=== PATIENT | female | born 1940 | race Caucasian/White ===

== ENCOUNTER → 2018-09-30 13:19 | Outpatient (CLI) | payer MEDICARE, OTHER, SELFPAY ==
--- NOTE | 2018-09-30 13:30 | SP.MBSS_ITS ---
PRIMARY / SECONDARY DIAGNOSIS: dysphagia (R13.10) REFERRING PHYSICIAN: Dr. Dane Watkins MD CURRENT DIET: regular textures, thin liquids DENTITION: upper / lower dentures; recently refitted MENTAL STATUS: WNL RESPIRATORY STATUS: O2 via room air PREVIOUS MODIFIED BARIUM SWALLOW STUDY: none REASON FOR REFERRAL: Patient is a 78 year old female referred for a modified barium swallow (MBS) study to objectively assess the Patients oropharyngeal swallow function under fluoroscopy secondary to persistent dysphagia with concerns for aspiration following workup via both gold prospector and following clinical evaluation of the swallow function via outpatient speech-language pathologist. The Patient reports persistent coughing and throat clearing at minimum once per meal, and reports ?choking? during intake less frequently; it is unclear as to what the distinction is between the two, as she has not required the Heimlich maneuver or appear to be asphyxiating upon her description. The Patient reports that her symptoms have fluctuated over the last few months, though no recent pneumonia, bronchitis, or unexplained asthma; no chronic obstructive pulmonary disease ?flair ups?. Both the Patient and the Patients daughter report no workup via contract preparer to date regarding the diagnosis of chronic obstructive pulmonary diseases; report rather recent placement on albuterol, though continued shortness of breath occurring after ambulation of ~ 50 feet. The Patient is able to ambulate with minimal assistance, required use of a wheelchair upon arrival to fluoroscopy suit. Both report a recent significant weight loss (~300 to 226) over the last 2-3 years, though this was purposeful though diet. MEDICAL HISTORY: Chronic obstructive pulmonary disease, gastroesophageal reflux disease, myocardial infarction, hypertension, type II diabetes mellitus, non-specified hearing loss, sleep apnea, former smoker STUDY FINDINGS: Patient participated in a Modified Barium Swallow (MBS) study on 09/30/2018. Dr. Peters was the radiologist present for this evaluation. This study was recorded in the lateral view and images were sent to PACs for storage. The following consistencies were presented to this patient for analysis of oropharyngeal swallow function: thin liquids, pudding, and a regular textured, Joelle Doone cookie. Results of the MBS are as follows: PENETRATION / ASPIRATION SCALE (TORRES): 1 = does not enter airway 2 = enters airway/above vocal folds/ejected 3 = enters airway/above vocal folds/not ejected 4 = enters airway/contacts vocal folds/ejected 5 = enters airway/contacts vocal folds/not ejected 6 = enters airway/below vocal folds/ejected 7 = enters airway/below vocal folds/not ejected despite effort 8 = enters airway/below vocal folds/no effort PENETRATION / ASPIRATION SCALE (SCORE): Thin liquid - 5 mL tsp.: 1 Thin liquids via cup (sequential swallows): 2 Thin liquids via cup (sequential swallows): 1 Thin liquids via cup (single sip): 1 Thin liquids via cup (sequential swallows): 1 Thin liquids via straw (sequential swallows): 2 Pudding via spoon: 1 Regular textured cookie: 1 Thin liquids via straw (single sip): 1 Thin liquids via straw (single sip): 1 Thin liquids via straw (single sip): 1 * image quality complicated by body habitus despite positional adjustments IMPRESSION: DIAGNOSIS: Mild pharyngeal dysphagia (R13.13); Dysphagia Severity Ratings Scale (DSRS): 2 ORAL PHASE CHARACTERIZED BY: LABIAL SEAL: no labial escape TONGUE CONTROL DURING BOLUS MANIPULATION: escape to lateral buccal cavity/floor of mouth BOLUS PREPARATION / MASTICATION: timely and efficient chewing and mashing BOLUS TRANSPORT / LINGUAL MOTION: brisk tongue motion ORAL RESIDUE: residue collection on oral structures (posterior lingual surface with solids) PHARYNGEAL PHASE CHARACTERIZED BY: INITIATION OF PHARYNGEAL SWALLOW: bolus head at posterior laryngeal surface of epiglottis at first hyoid excursion SOFT PALATE ELEVATION: no bolus between soft palate and pharyngeal wall LARYNGEAL ELEVATION: partial superior movement of thyroid cartilage/partial approximation of arytenoids cartilage to epiglottic petiole ANTERIOR HYOID EXCURSION: partial anterior movement EPIGLOTTIC MOVEMENT: complete epiglottic inversion LARYNGEAL VESTIBULE CLOSURE AT HEIGHT OF SWALLOW: complete laryngeal vestibule closure with no air/contrast in laryngeal vestibule PHARYNGEAL STRIPPING WAVE: pharyngeal stripping wave present / complete PHARYNGOESOPHAGEAL SEGMENT OPENING: complete distension and complete duration with no obstruction of flow TONGUE BASE RETRACTION: trace column of contrast between tongue base and posterior pharyngeal wall PHARYNGEAL RESIDUE: trace residue within or on pharyngeal structures ESOPHAGEAL PHASE CHARACTERIZED BY: ESOPHAGEAL BOLUS CLEARANCE IN THE UPRIGHT POSITION: could not view DIET TEXTURE RECOMMENDATIONS: Will recommend a regular textured, thin liquid diet. COMPENSATORY STRATEGIES RECOMMENDED: Reduced bolus volume, reduced rate of intake, seated upright at 90 degrees during PO intake, remain upright for 30-60 minutes post meal (GERD precaution) INTERPRETATION OF RESULTS: Patient presents with mild pharyngeal dysphagia (R13.13) with transient penetration of thin liquids during sequential ingestion, likely attributed to the diagnosis of chronic obstructive pulmonary disease and secondary presbyphagia. Pharyngeal phase marked by mild impairments in pharyngeal synchrony / bolus location upon swallow onset particularly during ingestion of larger volumes of thin liquids (habitual, no prompts given for sequential trials); and reduced closure of the airway during deglutition attributed to reduced hyolaryngeal excursion; though with sufficient laryngeal vestibule pressure generated to expel all penetrated materials. All deficits ameliorated with bolus volume / rate adjustments. All images complicated by the Patients body habitus, with the Patient unable to completely lower her shoulders from view, at times impeding the views of the hypopharyngeal arena and at / below the vocal folds. Would consider completion of a fiberoptic endoscopic evaluation of swallowing (FEES) if additional objective assessment data is desired / required. RECOMMENDATIONS: The Patient would benefit from continued skilled speech-language intervention targeting continued diet texture management; training and implementation of recommended compensatory strategies; Patient and caregiver education regarding dysphagia associated with chronic obstructive pulmonary disease. Discussed higher likelihood for deterioration of the swallow function during COPD exacerbation events, or in Patients with higher GOLDs classifications. Discussed higher likelihood for COPD related deficits as meals progress, with gradual reduction in oxygenation sufficiency leading to increased oxygen demands and eventual disruptions in the natural swallow / breathing pattern (expiration ? swallow - expiration); may consider monitoring during a meal during treatment (if feasible) or through trusted family members following family training (the Patients daughter is a registered nurse, with excellent insight demonstrated during the assessment; would be an invaluable informant) The Patient and the Patients daughter both report no workup via contract preparer to date, would likely benefit from further workup and treatment, with both expressing desire for referral. ADDITIONAL COMMENTS/RECOMMENDATIONS: Results and recommendations were discussed with the Patient immediately following MBS completion, with the Patient verbalizing understanding and agreement with all recommendations and education provided. IMAGE COUNT: [id number] G-CODES: SWALLOWING G8996 Current Status: CJ SWALLOWING G8997 Goal Status: CI SWALLOWING G8998 Discharge Status: IGOR Marquez M.A., [facility] Speech-Language Pathology Department [email or web address]
--- NOTE | 2018-09-30 13:30 | RAD_ITS ---
STUDY: SWALLOWING STUDY REASON FOR EXAM: Female, 78 years old. Dysphasia. TECHNIQUE: The examination was performed with Speech Pathology in attendance. Under fluoroscopic observation, the patient ingested thin barium, thick barium, barium pudding, and barium coated cracker. FLUOROSCOPY TIME: 1:53 minutes/seconds. 1766 spot images were obtained. RADIOLOGIST INVOLVEMENT: Radiologist was present and providing direct supervision. COMPARISON: None. FINDINGS: The following was observed during swallowing of the various mixtures of barium: Thin Barium: There was no evidence of aspiration or laryngeal penetration. Barium Pudding: There was no evidence of aspiration or laryngeal penetration. Barium Coated Cracker: There was no evidence of aspiration or laryngeal penetration. RAD/Swallowing Function w/Video IMPRESSION: Normal tailored barium swallow study. No evidence of increased risk for aspiration. The swallow study findings were discussed with the patient by the speech pathologist at the conclusion of the examination. Please see speech pathology report for more information and recommendations. Electronically Signed: Joe Peters MD at 15:24 EST Tel [phone], Service support ,
== END ==
PROVIDERS: Family Provider Family Medicine; PCP Family Medicine; Referring Provider Otolaryngology; Visit Provider Otolaryngology
DX: R13.12 Dysphagia, oropharyngeal phase (principal)
CPT/HCPCS: 74230; 92611; G8996; G8997; G8998

== ENCOUNTER 2018-10-14 11:30 | Outpatient (RCR) | payer MEDICARE, OTHER, SELFPAY ==
--- NOTE | 2018-09-21 16:34 | HP.SP.AD_ITS ---
History - History Date of Eval: 09/21/18 Date of Onset of Diagnosis: Pt reported 5 years. Previous speech therapy: No Other Relevant Medical History/Diagnoses/Surgery: COPD, Diabetes, Hearing loss, Acid reflux, sleep apnea, hypertension, heart attack, heart surgery. Smoking Status: Former smoker Hx Smoking: Yes - Pain Is pain an issue with your current prescribed condition?: No - Personal Education History: 12th grade Occupation: Retired Right Hearing Abillity: Hard of Hearing Left Hearing Abillity: Hard of Hearing Visual Assistive Devices: None Patients Living Arrangements: With Significant Other Subjective Oral Motor - Subjective Patient Reports: Drooling - Comments Comments: Patient has plates currently and will get permanent ones fitted tomorrow. Objective Oral Motor - Oral Status Dentition: Upper Dentures, Lower Dentures Additional: will get set tomorrow. - Labial Impairment: WNL Observation at Rest: WNL Closure: WNL Pucker: WNL Retraction: WNL Alternating Pucker/Retraction: WNL Involuntary Movement noted: No - Lingual Impairment: WNL Protrusion: WNL Retraction: WNL Lateralization: WNL Involuntary Movement: No - Jaw Impairment: WNL - Respiratory Status Respiratory Status: Room Air Subjective Dysphagia - Symptoms Reported Symptoms/Problems with: Coughing, Choking, Difficulty Swallowing Solids, Diffic ulty Swallowing Liquids - Current Diet Solids Current Diet: Soft Other: Patient reports due to lack of permanent teeth - Current Diet Liquids Current Liquids: Thin Objective Dysphagia - Administered by Administered by: Self - Thin Liquids Administred via: Cup Laryngeal Elevation: Impaired Oral Holding: No Gagging: No Patient Report: No complaints Comments: Noted minimal laryngeal elevation. - Regular Impaired Mastication: Slow but may be due loose plates. Laryngeal Elevation: Impaired Oral Holding: No Gagging: No Patient Report: Patient reported no feeling of food stuck. - Results Swallowing Within Normal Limits: No - Pending MBS Swallowing Diagnosis: Oropharyngeal Phase Dysphagia Additional: Pending MBS. Plan - Plan Plan: Cathy is demonstrating signs of dysphagia. Participation in MBS is recommended and Daughter will schedule it. - Recommendations MBS: Yes - Prognosis Prognosis: Good - Goal #1-5 Goal #1: Cathy will participate in MBS. Education - Patient Instruction Patient Education: Diagnosis, Treatment Plan Person Taught: Patient, Family Teaching Method: Discussion Response to teaching: Verbalize understanding
--- NOTE | 2018-10-14 12:20 | HP.SP.DC_ITS ---
ST Discharge Summary - Discharged: Discharge: Cathy Matias is discharged from [facility] as of September. She had her initial evaluation which resulted in recommendation of MBSS. This was completed on 09/30/18 with recommendation for regular foods/thin liquids with use of strategies. One session was completed after MBSS to educate patient on strategies and implications of COPD with swallowing deficits. Patient verbalized an understanding of all strategies and education. A copy of this discharge will be sent to her referring physician.
== END 2018-10-14 19:00 | disposition home or self-care (01) ==
LOC: SP 11:30
PROVIDERS: Family Provider Family Medicine; PCP Family Medicine; Referring Provider Otolaryngology; Visit Provider Otolaryngology
DX: R13.12 Dysphagia, oropharyngeal phase (principal)
CPT/HCPCS: 92610; G8996; G8997

== ENCOUNTER 2019-06-04 20:31 | Inpatient (IN) | payer MEDICARE, OTHER, SELFPAY ==
[2019-06-04] VITALS (9 sets, daily range): BP systolic 137–187; BP diastolic 62–83; PULSE 113–118; RESP 23–32; TEMP 37.8–38.9; O2SAT 94–98; BMI 43.7
--- NOTE | 2019-06-04 20:57 | EKG12_ITS ---
Test Reason : SOB Blood Pressure : / mmHG Vent. Rate : 115 BPM Atrial Rate : 115 BPM P-R Int : 128 ms QRS Dur : 172 ms QT Int : 368 ms P-R-T Axes : 000 -69 036 degrees QTc Int : 509 ms Sinus tachycardia Left axis deviation Right bundle branch block Possible Lateral infarct , age undetermined Abnormal ECG Confirmed by TOMI JULIAN, COURTNEY ([id number]), purchasing expeditor STUART WASHINGTON ([id number]) on 06/07/2019 1:45:59 PM Referred By: Confirmed By:COURTNEY KRISHNA MD
--- NOTE | 2019-06-04 21:25 | RAD_ITS ---
STUDY: X-RAY CHEST REASON FOR EXAM: Female, 79 years old. SOB TECHNIQUE: Single frontal view of the chest. COMPARISON: Median sternotomy wires. FINDINGS: Chronic interstitial lung changes without superimposed acute alveolar disease. There is no demonstrated pleural abnormality. Large cardiac silhouette. Normal mediastinum and winifred. Normal visualized pulmonary arteries. Normal visualized aortic arch and descending thoracic aorta. Normal visualized thoracic spine. Remote left rib trauma. There is no demonstrated abnormality of the visualized soft tissue structures of the upper abdomen. RAD/Chest 1 View (Portable) IMPRESSION: Chronic interstitial lung changes without superimposed acute alveolar disease. Electronically Signed: Herb Guy MD at 21:39 EDT Tel , Service support ,
[2019-06-04 21:30] LABS: Absolute Lymphocyte Count 0.63 X10^3/uL (0.83-4.51); Absolute Neutrophil Count 15.8 X10^3/uL (2.0-7.7); Basophil# 0.12 X10^3/uL; Basophil% 0.7 % (0-1); Eosinophil# 0.16 X10^3/uL; Eosinophils% 0.9 % (0-5); Hematocrit 42.8 % (37-47); Hemoglobin 13.8 g/dL (12.0-15.0); Lymphocyte # 0.63 X10^3/ul (4.0); Lymphocyte % 3.6 % (19-41); Mean Corp Hgb Conc 32.2 g/dL (32-36); Mean Corpuscular Hgb 29.5 pg (27.0-32.0); Mean Corpuscular Volume 91.5 fL (81-99); Mean Platelet Vol. 10.6 fl (6.2-12.0); Monocyte# 0.44 X10^3/uL; Monocyte% 2.5 % (0-10); NRBC Flagged by Analyzer 0 % (0-5); Neutrophil # 15.83 X10^3/uL (2.7-7.7); Neutrophil % 91.7 % (47-70); Platelet Count 226 K/mm3 (150-450); RBC Distribution Width CV 14.5 % (11.6-14.6); RBC Distribution Width SD 48.3 fl (35.1-43.9); Red Blood Count 4.68 M/mm3 (4.2-5.4); White Blood Count 17.3 K/mm3 (4.4-11.0)
[2019-06-04 21:49] LABS: Anion Gap 7 (5-15); BUN 27 mg/dL (7-18); BUN/Creat Ratio 20.6 RATIO (10-20); Calcium,Total 9.1 mg/dL (8.5-10.1); Chloride 95 mmol/L (98-107); Creatinine, Serum 1.31 mg/dL (0.55-1.02); EST Glomerular Filtration Rate 42 mL/min (>60); Est Glom Filt Rate - Afr Amer 51 mL/min (>60); Estimated Creatinine Clearance 29.28 ml/min; Glucose 133 mg/dL (74-106); Potassium 3.3 mmol/L (3.5-5.1); Sodium Level 133 mmol/L (136-145)
[2019-06-04 21:54] LABS: D-Dimer Quantitative (DVT/PE) 0.98 FEU/ug/m (0.27-0.49)
--- NOTE | 2019-06-04 22:54 | CT_ITS ---
STUDY: CTA CHEST REASON FOR EXAM: Female, 79 years old. Dyspnea, elevated d-dimer RADIATION DOSAGE (If Supplied By Facility): CTDIvol = ( 19.79 ) mGy, DLP = ( 508.98 ) mGycm TECHNIQUE: The examination was performed with the intravenous administration of 100ML IV Isovue 370. Post-processing of the angiographic images was performed, with multiplanar reformation and 3D reconstruction. Individualized dose optimization techniques were used for this CT. COMPARISON: June 04, 2019 chest x-ray FINDINGS: Normal enhancement of the main pulmonary artery and right and left pulmonary arteries. Normal enhancement of the bilateral peripheral pulmonary arteries. There is no demonstrated pulmonary embolism. There is a right-sided aortic arch. There is a left side subclavian crosses behind the esophagus. There is a separate takeoff for the right-sided carotid and the right side subclavian. The takeoff of the left vertebral appears to extend from the left subclavian. The left subclavian actually comes off of the anterior aspect of the arch of the right carotid. There is no demonstrated aortic dissection. There are coronary calcifications. There is moderate cardiomegaly. Sternotomy wires are seen midline. Normal mediastinum. Normal hilar regions. Normal visualized trachea and bronchi. There areas of interstitial thickening and groundglass opacity. Normal pulmonary parenchyma. Normal pleura. Normal chest wall structures. There are degenerative changes of thoracic spine. The gallbladder fossa is to the right of the liver are normal variant. The gallbladder is there is hepatic steatosis. There is posterior osteophytosis at the level of T12-L1 with mild central stenosis. 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 Findings are most consistent with mild pulmonary interstitial edema. No visualized pulmonary embolism. Moderate cardiomegaly. Status post sternotomy. Mild cardiomegaly coronary artery disease. Electronically Signed: Veronica Mantilla MD at 0:16 EDT Tel , Service support ,
[2019-06-04] MEDS: 0.9% Normal Saline 1,000 ML 999 ML IV (23:24)
[2019-06-04] MEDS: Ondansetron 4 MG/2 ML Vial IV (23:25)
--- NOTE | 2019-06-04 23:56 | ED.DCSUM_ITS ---
- ER Visit Summary Date of Service: 06/04/19 Chief Complaint: Shortness of breath, neck pain, and sore throat History of Present Illness: The patient is a 79 F who presents with shortness of breath, neck pain, and sore throat that began suddenly today. Patient states she just felt sick all of a sudden. Patient states she feels like she cannot catch her breath. Patient states she has some pain in her back and neck as well. Patient states she is coughing up some yellow and white sputum. Patient states she felt like she was running a fever at home. Patient admits to some nausea but denies any vomiting. Patient denies any chest pain. Family states patient had a recent urinary tract infection and was treated with 3 days of IM Rocephin at home. Family states that the urine culture grew out E. coli that was sensitive to Rocephin. Physical Examination: Vital signs showed an elevated blood pressure of 187/83. Patient has a temperature of 102.1. Patient is tachycardic and tachypneic with a heart rate of 113 oh respiratory rate of 29. Patient is 96% on 6 L nasal arlene jennifer. Oral mucosa is pink and moist. Neck is supple. Trachea is midline. There is no JVD noted. Heart was regular and tachycardic. Lungs are clear and equal bilaterally but diminished. Abdomen is soft. Bowel sounds are normal. There is no tenderness. Extremities are intact. There is no lower extremity edema or calf tenderness. Cranial nerves II through XII are intact. There are no focal motor or sensory deficits noted. Test Results: PA and lateral chest x-ray was obtained. There is no acute cardiopulmonary process. EKG showed a sinus tachycardia with a rate of 115. There is a right bundle branch block pattern noted. There are no acute ST or T wave changes. CBC shows leukocytosis of 17.3. Basic metabolic profile showed creatinine of 1.31 and BUN of 27. There are no prior labs for comparison. Troponin was normal at less than 0.015. BNP was 277. D-dimer was elevated at 0.98. CTA of the chest was obtained. Urinalysis showed leukocyte esterase of 500 with positive nitrates. There were 25-50 white blood cells and 2+ bacteria. Emergency Department Course and Treatment: Patient was given a dose of Zofran here. Patient was given IV fluids. Patient was started on Rocephin. Patient was given a dose of morphine for her headache and neck pain. Patient was feeling better on reevaluation. Case was discussed with the hospitalist. He will admit the patient to his service. Disposition: Admit to hospital Impression: 1. Sepsis 2. Urinary tract infection This note was generated with [employer] dictation software. It may contain incorrect words, spelling, and punctuation that were not noted in review of the chart prior to signing ED Disposition - Plan for ED Patient: Disposition: Acute Care Hospital [facility] Diagnosis: Sepsis, Urinary tract infection Referrals: Rommel Arango MD [Primary Care Provider] -
[2019-06-05] VITALS (18 sets, daily range): BP systolic 100–123; BP diastolic 50–68; PULSE 70–108; RESP 16–28; TEMP 36.6–37.7; O2SAT 91–96; BMI 40.7; BMI 40.8
[2019-06-05 00:35] LABS: Lactic Acid 1.9 mmol/L (0.4-2.0)
[2019-06-05] MEDS: Ceftriaxone 1 GM/50 ML BAG IV ×2 (01:10→03:32)
[2019-06-05 01:16] LABS: Mucous, Urine 0 SEEN /hpf (<or=2+)
[2019-06-05 01:17] LABS: Color, Urine Yellow (Yellow); Glucose, Dipstick Normal (Normal); Ketone-Dipstick Negative (Negative); Leukocyte Esterase-Dipstick 500 /ul (Negative); Nitrite-Dipstick Positive (Negative); Occult Blood-Urine 25 /ul (Negative); Protein-Dipstick 15 mg/dl (Negative); Specific Gravity, Urine 1.005 (1.002-1.030); Urine Bilirubin Dipstick Negative (Negative); Urine Clarity Cloudy (Clear); Urine Urobilinogen Normal (Normal)
[2019-06-05 01:26] LABS: Bacteria 2+ /hpf (None Seen); Red Blood Cells-Urine 0-5 SEEN /hpf (0-5); Squamous Epithelial Cells - UA 0-5 SEEN /hpf (5-10); White Blood Cells 25-50 SEEN /hpf (0-5)
--- NOTE | 2019-06-05 01:31 | PCM.HP.STD ---
Problem List (1) Sepsis Status: Acute (2) Urinary tract infection Status: Acute (3) Morbid obesity Status: Chronic (4) Chronic respiratory failure Status: Chronic (5) Essential hypertension Status: Chronic (6) Type II diabetes mellitus Status: Chronic (7) CAD (coronary artery disease) Status: Chronic History of Present Illness Date of Admission: 06/05/19 Chief Complaint: chills The patient is a 79 year old F significant history of CKD stage III; morbid obesity; hypertension; type 2 diabetes; CAD status post CABG and coronary stent who presented to emergency department with 1 day history of chills. Associated with symptoms is malaise and lower abdominal pain with urination. Reportedly, patient completed treatment for urinary tract infection a week before her presentation. She got treated with Rocephin IM for E. coli sensitive to Rocephin. On this presentation at the emergency department her temperature was 102.1; heart rate was 113; and respiratory rate was 29. Lactic acid was unremarkable. Her white count was 17.3. Patient was diagnosed with sepsis secondary to UTI. Urine culture and blood culture were taken and patient was started on broad spectrum antibiotics. Patient complains of chronic sore throat; chronic neck pain and chronic lower back pain. Past Medical History Past Medical History (Chronic Problems): Chronic Problems Morbid obesity (Chronic) Chronic respiratory failure (Chronic) Essential hypertension (Chronic) Type II diabetes mellitus (Chronic) CAD (coronary artery disease) (Chronic) Allergies No Known Allergies Allergy (Verified 06/04/19 20:36) Home Medications: Ambulatory Orders Medication Instructions Recorded Albuterol Aerosols [Ventolin 2.5 mg INHALATION Q4HWA.RT PRN 06/05/19 Aerosols] Allopurinol 100 mg PO DAILY 06/05/19 Aspirin [Aspirin, Baby] 81 mg PO DAILY@0800 06/05/19 Colchicine 0.6 mg PO PRN PRN 06/05/19 Fluoxetine HCl [Prozac] 40 mg PO DAILY 06/05/19 Folic Acid 1 mg PO DAILY 06/05/19 Furosemide [Lasix] 40 mg PO DAILY 06/05/19 Isosorbide Mononitrate [Imdur] 60 mg PO BID 06/05/19 Levothyroxine [Synthroid] 75 mcg PO DAILY 06/05/19 Loratadine 10 mg PO DAILY 06/05/19 Meclizine HCl [Antivert] 12.5 mg PO DAILY PRN PRN 06/05/19 Metolazone [Zaroxolyn] 5 mg PO DAILY 06/05/19 Metoprolol Succinate [Toprol Xl] 25 mg PO DAILY 06/05/19 Nitroglycerin (INPATIENT USE) 0.4 mg SUBLINGUAL Q5M PRN 06/05/19 [Nitrostat] Omeprazole 40 mg PO DAILY 06/05/19 Potassium Chloride 20 meq PO BID 06/05/19 Simvastatin 20 mg PO DAILY 06/05/19 Spironolactone 25 mg PO DAILY 06/05/19 Surgical History: colectomy - With colostomy and colostomy reversal, coronary bypass surgery, - - Coronary stents Lives: Alone Smoking Status: Never smoker Alcohol: None - *Family History Maternal History Items: - - Her mother at 96 following complications of surgery from broken hip. Paternal History Items: - - Patient do not know her paternal medical history. Review of Systems Constitutional: Reports: Anorexia, Chills, Malaise, Fatigue. Denies: Weight Change HEENT: Reports: Sore Throat - Chronic. Denies: Head Aches, Sinus Congestion, Sinus Drainage Cardiovascular: Denies: Chest Pain, Palpitations Respiratory: Reports: Shortness of Breath. Denies: Cough Gastrointestinal: Reports: Abdominal Pain - With urination. Denies: Nausea, Vomiting Genitourinary: Reports: Dysuria, Urgency - Chronic Musculoskeletal: Denies: Joint Pain, Joint Tenderness Skin: Denies: Rash, Wounds Neurological: Denies: Numbness, Tingling, Focal weakness Psychiatric: Denies: Anxiety, Depression, Homicidal Ideations, Suicidal Ideations Hematologic/ Lymphatic: Denies: Easy Bruising, Easy Bleeding VTE Information - Inpt Only VTE Present on Admission: No VTE Mechan Device Prophylaxis: None VTE Pharm Prophylaxis ordered?: Yes Patient Problems: Active and Suspected Problems Sepsis (Acute) Urinary tract infection (Acute) - Physical Exam General: Alert, Oriented x3, Cooperative HEENT: Atraumatic, PERRLA, EOMI, Normocephalic Neck: Supple, Trachea Midline Lungs: Short of Breath, Tachypneic, Wheezes Cardiovascular: Normal S1, Normal S2, No murmurs, Tachycardic Abdomen: Bowel Sounds Present, Soft, Non Tender Extremities: No edema, Capillary Refill Less than 3 Seconds Skin: No rashes, No breakdown Musculoskeletal: No Tenderness to Palpation of Joints or Extremities Neurological: Cranial nerves II-XII grossly intact Psych/Mental Status: Normal Affect, Appropriate Vital Signs Temp Pulse Resp BP Pulse Ox 100 F H 108 H 28 H 122/66 H 91 06/05/19 01:11 06/05/19 01:11 06/05/19 01:11 06/05/19 01:11 06/05/19 01:11 Oxygen Flow Rate (L/min) 2 Oxygen Delivery Method Nasal Cannula Weight: 112 kg Body Mass Index (BMI) 43.7 Laboratory Tests Past 24 Hrs 06/04/19 06/04/19 06/04/19 21:15 21:15 21:15 WBC 17.3 H RBC 4.68 Hgb 13.8 Hct 42.8 MCV 91.5 MCH 29.5 MCHC 32.2 RDW Std Deviation 48.3 H RDW Coeff of Oscar 14.5 Plt Count 226 MPV 10.6 Immature Gran % (Auto) 0.600 Neut % (Auto) 91.7 H Lymph % (Auto) 3.6 L Arthur % (Auto) 2.5 Eos % (Auto) 0.9 Baso % (Auto) 0.7 Absolute Neuts (auto) 15.8 H Absolute Lymphs (auto) 0.63 L Nucleated RBC % 0 D-Dimer Quant (PE/DVT) 0.98 H* Sodium 133 L Potassium 3.3 L Chloride 95 L Carbon Dioxide 31.0 Anion Gap 7 BUN 27 H Creatinine 1.31 H Estim Creat Clear Calc 29.28 Est GFR (MDRD) Af Amer 51 L Est GFR (MDRD) Non-Af 42 L BUN/Creatinine Ratio 20.6 H Glucose 133 H Lactic Acid Calcium 9.1 Troponin I < 0.015 B-Natriuretic Peptide Urine Color Urine Clarity Urine pH Ur Specific [place] Urine Protein Urine Glucose (UA) Urine Ketones Urine Occult Blood Urine Nitrite Urine Bilirubin Urine Urobilinogen Ur Leukocyte Esterase Urine RBC Urine WBC Ur Squamous Epith Cells Urine Bacteria Urine Mucus 06/04/19 06/04/19 06/05/19 21:15 21:15 00:55 WBC RBC Hgb Hct MCV MCH MCHC RDW Std Deviation RDW Coeff of Oscar Plt Count MPV Immature Gran % (Auto) Neut % (Auto) Lymph % (Auto) Arthur % (Auto) Eos % (Auto) Baso % (Auto) Absolute Neuts (auto) Absolute Lymphs (auto) Nucleated RBC % D-Dimer Quant (PE/DVT) Sodium Potassium Chloride Carbon Dioxide Anion Gap BUN Creatinine Estim Creat Clear Calc Est GFR (MDRD) Af Amer Est GFR (MDRD) Non-Af BUN/Creatinine Ratio Glucose Lactic Acid 1.9 Calcium Troponin I B-Natriuretic Peptide 277.0 H Urine Color Yellow Urine Clarity Cloudy Urine pH 7.0 Ur Specific [place] 1.005 Urine Protein 15 H Urine Glucose (UA) Normal Urine Ketones Negative Urine Occult Blood 25 H Urine Nitrite Positive H Urine Bilirubin Negative Urine Urobilinogen Normal Ur Leukocyte Esterase 500 H Urine RBC 0-5 SEEN Urine WBC 25-50 SEEN Ur Squamous Epith Cells 0-5 SEEN Urine Bacteria 2+ Urine Mucus 0 SEEN Assessment/Plan All Active Problems Sepsis (Acute) Urinary tract infection (Acute) The patient is a 79 year old F significant history of CKD stage III; morbid obesity; hypertension; type 2 diabetes; CAD status post CABG and coronary stent with chills; malaise; dysuria; tachycardia; tachypnea; leukocytosis and abnormal urinalysis in the setting of completing treatment a week ago for E-coli UTI that was sensitive to Rocephin. Sepsis secondary to UTI Patient meets sirs criteria with fever 102.1; tachycardia with rate 113; tachypnea with rate 29; and leukocytosis of 17.3. Lactic acid is unremarkable. Emergency department labs showed abnormal urinalysis. Urine culture is pending. Blood culture is pending. Follow results of urine culture blood culture. EKG showed sinus tach with right bundle branch block. Patient received ceftriaxone 1 g at the emergency department. We will give patient an additional 1 g of ceftriaxone and will start patient on ceftriaxone 2 g daily. Trend CBC and BMP Morphine IV as needed and Zofran as needed ordered. Discussed with patient that after treatment if her symptoms of urinary tract infection re-occur patient to discuss with providers for imaging of her kidneys and bladder. Will admit patient [facility] with telemetry. COPD Patient has some mild to moderate wheezes on examination. However she does not appear to be in COPD exacerbation. Per family recently patient has been requiring more of her inhalers. PRN albuterol ordered. Obstructive sleep apnea At home patient is on a CPAP with oxygen bled in. However per family patient is having problem with current mask of CPAP and only uses oxygen at night. We will order CPAP with oxygen bled in here while at the hospital. Hypertension On presentation her blood pressure was stable in regard to her age Lasix; metolazone; Imdur; metoprolol continued. Trend blood pressure and adjust blood pressure medication as necessary. Diabetes mellitus On presentation her blood glucose on BMP was within hospital goal. 1800-calorie restricted diet CKD stage III Stable CAD status post CABG and stent Aspirin and Zocor continued Imdur and metoprolol Gout Allopurinol continued. On colchicine as needed. Congestive heart failure Last echocardiogram on file here was on 04/26/2013. It showed mild concentric left ventricular hypertrophy. Estimated ejection fraction was 50%. Pulmonary artery systolic pressure was 44. Chest x-ray showed chronic interstitial lung changes without superimposed acute alveolar disease. CT/CTA chest with and without contrast showed findings consistent with mild pulmonary interstitial edema. Moderate cardiomegaly. Coronary artery disease. Lasix and metolazone continued Aldactone continued GERD Omeprazole continued Depression Prozac continued DVT Prophylaxis Subcutaneous Lovenox. Code Visit Inpatient E&M: 10505 Init Hosp L3
[2019-06-05] MEDS: Morphine 4 MG/ML Syringe IV (02:24)
[2019-06-05] MEDS: Levothyroxine 75 MCG Tablet PO (05:13)
[2019-06-05] MEDS: Acetaminophen 325 MG Tablet 650 MG PO ×2 (05:17→21:57)
[2019-06-05 06:40] LABS: Bedside Glucose 182 mg/dL (70-110)
[2019-06-05] MEDS: Insulin Lispro 100 UNIT/ML INSULN.PEN SC ×4 (06:41→21:46)
[2019-06-05 07:11] LABS: Absolute Lymphocyte Count 0.73 X10^3/uL (0.83-4.51); Absolute Neutrophil Count 16.2 X10^3/uL (2.0-7.7); Basophil# 0.09 X10^3/uL; Basophil% 0.5 % (0-1); Eosinophil# 0.02 X10^3/uL; Eosinophils% 0.1 % (0-5); Hematocrit 40.3 % (37-47); Hemoglobin 12.8 g/dL (12.0-15.0); Lymphocyte # 0.73 X10^3/ul (4.0); Mean Corp Hgb Conc 31.8 g/dL (32-36); Mean Corpuscular Hgb 29.5 pg (27.0-32.0); Mean Corpuscular Volume 92.9 fL (81-99); Mean Platelet Vol. 11.5 fl (6.2-12.0); Monocyte# 1.02 X10^3/uL; Monocyte% 5.6 % (0-10); NRBC Flagged by Analyzer 0 % (0-5); Neutrophil # 16.21 X10^3/uL (2.7-7.7); Neutrophil % 89.1 % (47-70); Platelet Count 200 K/mm3 (150-450); RBC Distribution Width CV 14.4 % (11.6-14.6); RBC Distribution Width SD 48.9 fl (35.1-43.9); Red Blood Count 4.34 M/mm3 (4.2-5.4); White Blood Count 18.2 K/mm3 (4.4-11.0)
[2019-06-05] MEDS: Folic Acid 1 MG Tablet PO (07:34)
[2019-06-05 07:35] LABS: Anion Gap 11 (5-15); BUN 25 mg/dL (7-18); BUN/Creat Ratio 20.7 RATIO (10-20); Calcium,Total 8.4 mg/dL (8.5-10.1); Chloride 100 mmol/L (98-107); Creatinine, Serum 1.21 mg/dL (0.55-1.02); EST Glomerular Filtration Rate 46 mL/min (>60); Est Glom Filt Rate - Afr Amer 55 mL/min (>60); Glucose 200 mg/dL (74-106); Potassium 3.4 mmol/L (3.5-5.1); Sodium Level 138 mmol/L (136-145)
[2019-06-05] MEDS: Aspirin 81 MG TAB.CHEW PO (07:35)
[2019-06-05] MEDS: Allopurinol 100 MG Tablet PO (07:36)
--- NOTE | 2019-06-05 08:23 | US_ITS ---
STUDY: RENAL ULTRASOUND - COMPLETE REASON FOR EXAM: Female, 79 years old. Abnormal labs TECHNIQUE: Ultrasound evaluation of the kidneys was performed with real-time and static ayala-scale imaging. COMPARISON: Partial comparison June 04, 2019 CT scan chest with contrast. FINDINGS: RIGHT KIDNEY: Not visualized. LEFT KIDNEY: Normal location of the left kidney, which is normal in size. The left kidney measures 9.3 x 5.2 x 5.4 cm. There is a normal cortex of the left kidney. The renal cortex measures 1.1 cm. There is no left renal mass or cyst. There are no left renal calculi. There is no left hydronephrosis. DISTAL LEFT URETER: There is a visualized left ureteral jet. BLADDER: The distended urinary bladder has a volume of 197.3 ml. There is a normal wall thickness of the distended urinary bladder. US/Kidney and Bladder IMPRESSION: Right kidney is not visualized due to positioning and/or body habitus. There is no visualized hydronephrosis of the left kidney. The study is very limited. Electronically Signed: Veronica Mantilla MD at 14:23 EDT Tel , Service support ,
[2019-06-05] MEDS: Polyethylene Glycol 3350 17 GM PACKET PO (09:37)
[2019-06-05] MEDS: Metoprolol(XL)Succ 25 MG Tablet PO (09:39)
[2019-06-05] MEDS: metOLazone 5 MG Tablet PO (09:39)
[2019-06-05] MEDS: Spironolactone 25 MG Tablet PO (09:39)
[2019-06-05] MEDS: Loratadine 10 MG Tablet PO (09:39)
[2019-06-05] MEDS: Pantoprazole Sodium 40 MG Tablet PO (09:39)
[2019-06-05] MEDS: FLUoxetine 20 MG Capsule 40 MG PO (09:40)
[2019-06-05] MEDS: Isosorbide Mononitrate 60 MG Tablet PO (09:40)
[2019-06-05] MEDS: Enoxaparin 30 MG/0.3 ML Syringe SC (09:41)
[2019-06-05] MEDS: Furosemide 40 MG Tablet PO (09:41)
[2019-06-05 11:01] LABS: Bedside Glucose 194 mg/dL (70-110)
--- NOTE | 2019-06-05 14:43 | PN_ITS ---
Patient Problems: Active and Suspected Problems Sepsis (Acute) Urinary tract infection (Acute) Subjective: The patient was admitted with temperature more than 102 Fahrenheit. She is afebrile since morning. Blood cultures both bottles aerobic and anaerobic is growing gram-negative rods. Seems responding to IV ceftriaxone. Patient has history of recurrent UTI about 3 or more times in last 1 year. Vitals/I&O's: Vital Signs Temp Pulse Resp BP Pulse Ox 98.0 F 80 16 105/55 L 96 06/05/19 09:29 06/05/19 10:59 06/05/19 09:29 06/05/19 09:29 06/05/19 09:29 Oxygen Flow Rate (L/min) 3 Oxygen Delivery Method Room Air Weight: 230 lb 2.601 oz Body Mass Index (BMI) 40.7 Intake and Output for Last 24 Hours 06/03/19 06/04/19 06/05/19 23:59 23:59 23:59 Intake Total 785 / 785 Output Total 750 / 750 Balance 35 / 35 General: Alert, Oriented x3, Cooperative HEENT: Atraumatic, PERRLA, EOMI, Normocephalic Neck: Supple, No JVD, Negative Carotid Bruits Lungs: Clear to auscultation, Normal air movement Cardiovascular: Regular rate, Regular Rhythm, Normal S1, Normal S2, No murmurs Abdomen: Bowel Sounds Present, Soft, Non-Distended, - - No renal angle tenderness. Mild suprapubic tenderness present. Wilcox catheter shows cloudy urine. It is being removed. Extremities: No edema, Capillary Refill Less than 3 Seconds, - Skin: No rashes, No breakdown, Rash Present - Intertriginous dermatitis. Musculoskeletal: No Tenderness to Palpation of Joints or Extremities, Arthritic Changes Neurological: Cranial nerves II-XII grossly intact, Deep Tendon Reflexes 2+/4 and Symmetrical, Neuro grossly intact Psych/Mental Status: Normal Affect, Appropriate Microbiology Past 72 Hours 06/04/19 21:17 Blood Culture (Wb) #2 - Right Hand Blood Culture - Prelimi rob 06/04/19 21:15 Blood Culture (Wb) - Anticubital Left Blood Culture - Preliminary Laboratory Results 06/04/19 21:15: WBC 17.3 H, RBC 4.68, Hgb 13.8, Hct 42.8, MCV 91.5, MCH 29.5, MCHC 32.2, RDW Std Deviation 48.3 H, RDW Coeff of Oscar 14.5, Plt Count 226, MPV 10.6, Immature Gran % (Auto) 0.600, Neut % (Auto) 91.7 H, Lymph % (Auto) 3.6 L, [place] % (Auto) 2.5, Eos % (Auto) 0.9, Baso % (Auto) 0.7, Absolute Neuts (auto) 15.8 H, Absolute Lymphs (auto) 0.63 L, Nucleated RBC % 0 06/04/19 21:15: D-Dimer Quant (PE/DVT) 0.98 H* 06/04/19 21:15: Sodium 133 L, Potassium 3.3 L, Chloride 95 L, Carbon Dioxide 31.0, Anion Gap 7, BUN 27 H, Creatinine 1.31 H, Estim Creat Clear Calc 29.28, Est GFR (MDRD) Af Amer 51 L, Est GFR (MDRD) Non-Af 42 L, BUN/Creatinine Ratio 20.6 H, Glucose 133 H, Calcium 9.1, Troponin I < 0.015 06/04/19 21:15: B-Natriuretic Peptide 277.0 H 06/04/19 21:15: Lactic Acid 1.9 06/05/19 00:55: Urine Color Yellow, Urine Clarity Cloudy, Urine pH 7.0, Ur Spe cific [place] 1.005, Urine Protein 15 H, Urine Glucose (UA) Normal, Urine Ketones Negative, Urine Occult Blood 25 H, Urine Nitrite Positive H, Urine Bilirubin Negative, Urine Urobilinogen Normal, Ur Leukocyte Esterase 500 H, Urine RBC 0-5 SEEN, Urine WBC 25-50 SEEN, Ur Squamous Epith Cells 0-5 SEEN, Urine Bacteria 2+, Urine Mucus 0 SEEN 06/05/19 05:46: WBC 18.2 H, RBC 4.34, Hgb 12.8, Hct 40.3, MCV 92.9, MCH 29.5, MCHC 31.8 L, RDW Std Deviation 48.9 H, RDW Coeff of Oscar 14.4, Plt Count 200, MPV 11.5, Immature Gran % (Auto) 0.700, Neut % (Auto) 89.1 H, Lymph % (Auto) 4.0 L, [place] % (Auto) 5.6, Eos % (Auto) 0.1, Baso % (Auto) 0.5, Absolute Neuts (auto) 16.2 H, Absolute Lymphs (auto) 0.73 L, Nucleated RBC % 0 06/05/19 05:46: Sodium 138, Potassium 3.4 L, Chloride 100, Carbon Dioxide 27.0, Anion Gap 11, BUN 25 H, Creatinine 1.21 H, Estim Creat Clear Calc 31.70, Est GFR (MDRD) Af Amer 55 L, Est GFR (MDRD) Non-Af 46 L, BUN/Creatinine Ratio 20.7 H, Glucose 200 H, Calcium 8.4 L 06/05/19 06:35: POC Glucose 182 H 06/05/19 10:54: POC Glucose 194 H Current Medications Acetaminophen (Tylenol) 650 mg PO Q6H PRN PRN PRN Reason: Mild Pain (1-3)/Temp > 100.7 F Last Admin: 06/05/19 05:17 Dose: 650 mg Documented by: Albuterol Sulfate (Ventolin Aerosols) 2.5 mg INHALATION Q2H PRN PRN PRN Reason: SOB/WHEEZING [facility]) [facility] Last Admin: 06/05/19 07:36 Dose: 100 mg Documented by: Aspirin (Aspirin, Baby) 81 mg PO DAILY@0800 [facility] Last Admin: 06/05/19 07:35 Dose: 81 mg Documented by: Atorvastatin Calcium (Lipitor) 10 mg PO DAILY@2200 [facility] Bisacodyl (Dulcolax) 5 mg PO DAILY PRN PRN PRN Reason: Constipation Dextrose (D50w Syringe) 0 gm IV X1 PRN; Protocol PRN Reason: Hypoglycemia Enoxaparin Sodium (Lovenox) 30 mg SC DAILY@1000 [facility] Last Admin: 06/05/19 09:41 Dose: 30 mg Documented by: Fluoxetine HCl (Prozac) 40 mg PO DAILY [facility] Last Admin: 06/05/19 09:40 Dose: 40 mg Documented by: Folic Acid (Folic Acid) [facility] Last Admin: 06/05/19 07:34 Dose: 1 mg Documented by: Furosemide (Lasix) 40 mg PO DAILY [facility] Last Admin: 06/05/19 09:41 Dose: 40 mg Documented by: Glucagon () 1 mg IM .X1 PRN PRN Reason: Hypoglycemia Ceftriaxone Sodium 2 gm/ (Sodium Chloride) 50 mls @ 100 mls/hr IV Q24@2200 [facility] Insulin Human Lispro (Humalog [place] (Bkc)) 0 unit SC ACHS [facility]; Protocol Last Admin: 06/05/19 10:56 Dose: 2 u Documented by: Isosorbide Mononitrate (Imdur) 60 mg PO BID [facility] Last Admin: 06/05/19 09:40 Dose: 60 mg Documented by: Levothyroxine Sodium (Synthroid) 75 mcg PO DAILY@0600 [facility] Last Admin: 06/05/19 05:13 Dose: 75 mcg Documented by: Loratadine (Claritin) 10 mg PO DAILY [facility] Last Admin: 06/05/19 09:39 Dose: 10 mg Documented by: Meclizine HCl (Antivert) 12.5 mg PO DAILY PRN PRN PRN Reason: DIZZINESS Methylcellulose (Citrucel) 2 gm PO DAILY [facility] Last Admin: 06/05/19 09:42 Dose: Not Given Documented by: Metolazone (Zaroxolyn) 5 mg PO DAILY [facility] Last Admin: 06/05/19 09:39 Dose: 5 mg Documented by: Metoprolol Succinate (Toprol Xl (Beta Dom)) 25 mg PO DAILY [facility] Last Admin: 06/05/19 09:39 Dose: 25 mg Documented by: Morphine Sulfate () 2 mg IV Q3H PRN PRN PRN Reason: Severe pain (7-10/10) Ondansetron HCl (Zofran) 4 mg IV Q8H PRN PRN PRN Reason: NAUSEA/VOMITING Pantoprazole Sodium (Protonix) 40 mg PO DAILY [facility] Last Admin: 06/05/19 09:39 Dose: 40 mg Documented by: Polyethylene Glycol (Miralax) 17 gm PO DAILY [facility] Last Admin: 06/05/19 09:37 Dose: 17 gm Documented by: Potassium Chloride (K-Dur) 20 meq PO BIDCM [facility] Last Admin: 06/05/19 07:34 Dose: 20 meq Documented by: Sodium Chloride () 10 - 40 ml IV UD PRN PRN Reason: SALINE FLUSH Spironolactone (Aldactone) 25 mg PO DAILY [facility] Last Admin: 06/05/19 09:39 Dose: 25 mg Documented by: Medical Necessity - Tobacco Use Smoking Status: Never smoker Assessment/Plan All Active Problems Sepsis (Acute) Urinary tract infection (Acute) The patient is a 79 year old F significant history of CKD stage III; morbid obesity; hypertension; type 2 diabetes; CAD status post CABG and coronary stent and recurrent UTI, 3 or more times in last 1 year is being admitted with lower urinary tract symptoms including burning micturition, suprapubic/perineal heaviness/pain, tachycardia, high-grade fever, tachypnea, leukocytosis and pyuria in the UA. Patient was started on Rocephin for E. coli UTI sensitive to Rocephin. Sepsis ( fever 102.1; tachycardia with rate 113; tachypnea with rate 29; and leukocytosis of 17.3.) and bacteremia secondary to gram-negative nicko UTI: Patient is being admitted on PCU. Lactic acid is normal. UA shows pyuria 25-50 cells WBC, RBC 0-5, LE 500, nitrite positive. Patient is started on ceftriaxone 2 g daily from ER. With systemic symptoms and sepsis, kidneys and bladder ultrasound was ordered. Right kidney not visualized. No hydronephrosis of left kidney. Distended urinary bladder with volume about 200 mL. Normal wall th ickness of distended urinary bladder. Patient does not have renal angle tenderness. Patient does not have history of nephrectomy therefore nonvisualization of right kidney probably limited visualization on ultrasound If patient gets further fever or renal angle tenderness will need CT scan without IV contrast because of CKD stage III and estimated creatinine clearance about 30 mils per minute COPD Patient does not appear to be in COPD exacerbation. Patient has chronic cough secondary to COPD. She has never been a smoker. Per family recently patient has been requiring more of her inhalers. DuoNeb every 6 hourly while awake and albuterol as needed. PRN albuterol ordered. Obstructive sleep apnea on CPAP with chronic hypoxic respiratory failure. Patient uses 2 to 3 L oxygen at night. Continue CPAP support. Hypertension Blood pressure was 187/83 as per triage vital. Currently blood pressure 105/55. Lasix; metolazone; Imdur; metoprolol continued with holding parameters. Trend blood pressure and adjust blood pressure medication as necessary. Diabetes mellitus On presentation her blood glucose on BMP was within hospital goal. 1800-calorie restricted diet CKD stage III: BUN/creatinine is improved. Estimated creatinine clearance 30 mils per minute Stable CAD status post CABG and stent Aspirin and Zocor continued Imdur and metoprolol Gout Allopurinol continued. On colchicine as needed. 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 It showed mild concentric left ventricular hypertrophy. Estimated ejection fraction was 50%. Pulmonary artery systolic pressure was 44. Chest x-ray showed chronic interstitial lung changes without superimposed acute alveolar disease. CT/CTA chest with and without contrast showed findings consistent with mild pulmonary interstitial edema. Moderate cardiomegaly. Coronary artery disease. 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 GERD Omeprazole continued Depression Prozac continued DVT Prophylaxis Subcutaneous Lovenox. Multiple comorbidities complicates the present care and expect difficult and delay recovery Clinical Impression(s) from Imaging Studies Chest X-Ray 06/04/19 21:25 IMPRESSION: Chronic interstitial lung changes without superimposed acute alveolar disease. 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 Findings are most consistent with mild pulmonary interstitial edema. No visualized pulmonary embolism. Moderate cardiomegaly. Status post sternotomy. Mild cardiomegaly coronary artery disease. Renal Ultrasound 06/05/19 08:23 IMPRESSION: Right kidney is not visualized due to positioning and/or body habitus. There is no visualized hydronephrosis of the left kidney. The study is very limited.
[2019-06-05 16:55] LABS: Bedside Glucose 214 mg/dL (70-110)
--- NOTE | 2019-06-05 16:56 | CM.UR ---
Met face to face with patient and her daughter, Steff approximately 1:40pm. RN CM Assessment Introduced role of RN CM to patient. Patient is alert and able to participate in RN CM Assessment. Care providers, pharmacy, and demographics verified. Presentation: SOB, neck pain and sore throat. Stated suddenly just felt sick. Admit Dx: Sepsis, UTI Re-Admit: No Potential/Actual--Barriers/Issues: depression PCP: [facility] Special[facility]: Saw Dr. Meza for cardio. wants to find new provider. saw his partner once since Susana has been gone but didn't like him. Is considering [facility]. [facility]erred [facility]; [facility]. Insurance: MCR and physicians [place] supplement Rx Benefit: Yes no concerns paying LNOK: Daughter Steff (nurse) LW/HPOA: Needs updated. as HPOA. Aware we need a copy on file. Living Arrangements: 1 story, lives a lone. A lot of family support. ADL?s: independent with personal care. Daughter states they like someone to be present when she baths just in case. Daughter does cleaning. Patient does own finances and med set up. Transportation: Very seldom drives. Mostly gets rides from family. No transportation concerns. DME: CPAP, o2 bleed in, nebulizer, grab bars in tub, grab bar going out to garage, w/c and bsc. Currently having trouble with cpap mask and [employer] is working to try to find something that fits. DME co: Margo. HHC: [facility] SNF: [facility] Goal: Home DC PLAN: Is agreeable to [facility] upon discharge. States [facility]. Coni Mendenhall, RN, CCM.
[2019-06-05] MEDS: Ipratropium/Albuterol Sulfate 3 ML AMPUL.NEB INHALATION (19:15)
[2019-06-05] MEDS: 0.9% NaCl Peripheral Flush Adult/Peds IV (21:46)
[2019-06-05] MEDS: Isosorbide Mononitrate 30 MG Tablet PO (21:48)
[2019-06-05] MEDS: Atorvastatin Calcium 10 MG Tablet PO (21:48)
--- NOTE | 2019-06-05 22:02 | NURSING ---
Pt incontinent previously. Now with 497 in bladder per bladder scan. Will straight cath per orders.
--- NOTE | 2019-06-05 22:56 | NURSING ---
Pt bladder scanned for 497 mL. When betadine applied, pt began to urinate spontaneously. Attempted to straight cath. Met resistance, and was not successful. Pt bladder scanned again for 82 mL.
[2019-06-05 23:56] LABS: Bedside Glucose 191 mg/dL (70-110)
[2019-06-06] VITALS (19 sets, daily range): BP systolic 93–139; BP diastolic 62–72; PULSE 80–121; RESP 15–19; TEMP 36.5–37.5; O2SAT 94–97
[2019-06-06] MEDS: Ipratropium/Albuterol Sulfate 3 ML AMPUL.NEB INHALATION ×4 (00:07→19:00)
[2019-06-06 06:17] LABS: Absolute Lymphocyte Count 1.03 X10^3/uL (0.83-4.51); Absolute Neutrophil Count 9.4 X10^3/uL (2.0-7.7); Basophil% 0.7 % (0-1); Eosinophil# 0.32 X10^3/uL; Eosinophils% 2.4 % (0-5); Hematocrit 36.8 % (37-47); Hemoglobin 11.9 g/dL (12.0-15.0); Lymphocyte # 1.03 X10^3/ul (4.0); Lymphocyte % 7.6 % (19-41); Mean Corp Hgb Conc 32.3 g/dL (32-36); Mean Corpuscular Hgb 30.3 pg (27.0-32.0); Mean Corpuscular Volume 93.6 fL (81-99); Mean Platelet Vol. 11.3 fl (6.2-12.0); Monocyte# 2.73 X10^3/uL; Monocyte% 20.1 % (0-10); NRBC Flagged by Analyzer 0 % (0-5); Neutrophil # 9.37 X10^3/uL (2.7-7.7); Neutrophil % 68.8 % (47-70); POSITIVE DIFFERENTIAL YES; Platelet Count 159 K/mm3 (150-450); RBC Distribution Width CV 14.6 % (11.6-14.6); RBC Distribution Width SD 50.4 fl (35.1-43.9); Red Blood Count 3.93 M/mm3 (4.2-5.4); White Blood Count 13.6 K/mm3 (4.4-11.0)
[2019-06-06 06:26] LABS: Differential Indicated SCAN CRITERIA MET
[2019-06-06] MEDS: Levothyroxine 75 MCG Tablet PO (06:26)
[2019-06-06 06:39] LABS: Anion Gap 8 (5-15); BUN 28 mg/dL (7-18); BUN/Creat Ratio 21.5 RATIO (10-20); Calcium,Total 8.6 mg/dL (8.5-10.1); Chloride 98 mmol/L (98-107); EST Glomerular Filtration Rate 42 mL/min (>60); Est Glom Filt Rate - Afr Amer 51 mL/min (>60); Glucose 234 mg/dL (74-106); Potassium 3.2 mmol/L (3.5-5.1); Sodium Level 137 mmol/L (136-145)
[2019-06-06] MEDS: Insulin Lispro 100 UNIT/ML INSULN.PEN SC ×5 (06:59→22:36)
[2019-06-06 07:17] LABS: Differential Comment S
[2019-06-06 07:20] LABS: Bedside Glucose 187 mg/dL (70-110)
[2019-06-06] MEDS: Allopurinol 100 MG Tablet PO (07:29)
[2019-06-06] MEDS: Folic Acid 1 MG Tablet PO (07:30)
[2019-06-06] MEDS: Aspirin 81 MG TAB.CHEW PO (07:30)
[2019-06-06] MEDS: Polyethylene Glycol 3350 17 GM PACKET PO (07:30)
[2019-06-06] MEDS: Methylcellulose 2 GM Bottle PO (07:30)
--- NOTE | 2019-06-06 07:58 | CPS ---
pt decreased to 1.5 lpm....sat 93%
[2019-06-06] MEDS: Enoxaparin 30 MG/0.3 ML Syringe SC (09:07)
[2019-06-06] MEDS: Pantoprazole Sodium 40 MG Tablet PO (09:07)
[2019-06-06] MEDS: Loratadine 10 MG Tablet PO (09:07)
[2019-06-06] MEDS: FLUoxetine 20 MG Capsule 40 MG PO (09:08)
[2019-06-06] MEDS: Isosorbide Mononitrate 30 MG Tablet PO ×2 (09:08→22:36)
[2019-06-06] MEDS: Spironolactone 25 MG Tablet PO (09:08)
[2019-06-06] MEDS: metOLazone 5 MG Tablet PO (09:09)
[2019-06-06 11:10] LABS: Bedside Glucose 311 mg/dL (70-110)
--- NOTE | 2019-06-06 12:52 | PN_ITS ---
Patient Problems: Active and Suspected Problems Sepsis (Acute) Urinary tract infection (Acute) Subjective: Patient did not had fever since 3 AM on 06/05/2019. Currently patient is mild wheezing felt short of breath. History of COPD She also feels improvement in suprapubic/perineal pain and heaviness. Blood cultures x2 and urine culture is growing E. 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 Vitals/I&O's: Vital Signs Temp Pulse Resp BP Pulse Ox 97.9 F 86 18 123/65 H 94 06/06/19 11:02 06/06/19 11:02 06/06/19 11:02 06/06/19 11:02 06/06/19 11:02 Oxygen Flow Rate (L/min) 1 Oxygen Delivery Method Nasal Cannula Weight: 230 lb 2.601 oz Body Mass Index (BMI) 40.7 Intake and Output for Last 24 Hours 06/04/19 06/05/19 06/06/19 23:59 23:59 23:59 Intake Total 1720.3 / 1720.3 557 / 557 Output Total 1050 / 1050 100 / 100 Balance 670.3 / 670.3 457 / 457 General: Alert, Oriented x3, Cooperative HEENT: Atraumatic, PERRLA, EOMI, Normocephalic Neck: Supple, No JVD, Negative Carotid Bruits Lungs: Diminished - Air entry is diminished in bilateral posterior half of lungs., Rales, Rhonchi, Short of Breath Cardiovascular: Regular rate, Regular Rhythm, Normal S1, Normal S2, No murmurs Abdomen: Bowel Sounds Present, Soft, Non Tender, Non-Distended Extremities: Capillary Refill Less than 3 Seconds, Edema Skin: No rashes, No breakdown Musculoskeletal: No Tenderness to Palpation of Joints or Extremities, Arthritic Changes Neurological: Cranial nerves II-XII grossly intact Psych/Mental Status: Normal Affect, Appropriate Microbiology Past 72 Hours 06/05/19 00:55 Urine Catheter - Catheter Urine Culture - Preliminary Presumptive E. 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 kennel attendant Laboratory Results 06/05/19 16:45: POC Glucose 214 H 06/05/19 21:45: POC Glucose 191 H 06/06/19 05:31: WBC 13.6 H, RBC 3.93 L, Hgb 11.9 L, Hct 36.8 L, MCV 93.6, MCH 30.3, MCHC 32.3, RDW Std Deviation 50.4 H, RDW Coeff of Oscar 14.6, Plt Count 159, MPV 11.3, Immature Gran % (Auto) 0.400, Neut % (Auto) 68.8, Lymph % (Auto) 7.6 L , [place] % (Auto) 20.1 H, Eos % (Auto) 2.4, Baso % (Auto) 0.7, Absolute Neuts (auto) 9.4 H, Absolute Lymphs (auto) 1.03, Nucleated RBC % 0, Differential Comment S, Diff Path Review February06/06/19 05:31: Sodium 137, Potassium 3.2 L, Chloride 98, Carbon Dioxide 31.0, Anion Gap 8, BUN 28 H, Creatinine 1.30 H, Estim Creat Clear Calc 29.50, Est GFR (MDRD) Af Amer 51 L, Est GFR (MDRD) Non-Af 42 L, BUN/Creatinine Ratio 21.5 H, Glucose 234 H, Calcium 8.6 06/06/19 06:58: POC Glucose 187 H 06/06/19 10:57: POC Glucose 311 H Current Medications Acetaminophen (Tylenol) 650 mg PO Q6H PRN PRN PRN Reason: Mild Pain (1-3)/Temp > 100.7 F Last Admin: 06/05/19 21:57 Dose: 650 mg Documented by: Albuterol Sulfate (Ventolin Aerosols) 2.5 mg INHALATION Q2H PRN PRN PRN Reason: SOB/WHEEZING Albuterol/Ipratropium (Duoneb) 3 ml INHALATION Q6H.RT [facility] Last Admin: 06/06/19 07:06 Dose: 3 ml Documented by: [facility]) [facility] Last Admin: 06/06/19 07:29 Dose: 100 mg Documented by: Aspirin (Aspirin, Baby) 81 mg PO DAILY@0800 [facility] Last Admin: 06/06/19 07:30 Dose: 81 mg Documented by: Atorvastatin Calcium (Lipitor) 10 mg PO DAILY@2200 [facility] Last Admin: 06/05/19 21:48 Dose: 10 mg Documented by: Bisacodyl (Dulcolax) 5 mg PO DAILY PRN PRN PRN Reason: Constipation Dextrose (D50w Syringe) 0 gm IV X1 PRN; Protocol PRN Reason: Hypoglycemia Enoxaparin Sodium (Lovenox) 30 mg SC DAILY@1000 [facility] Last Admin: 06/06/19 09:07 Dose: 30 mg Documented by: Fluoxetine HCl (Prozac) 40 mg PO DAILY [facility] Last Admin: 06/06/19 09:08 Dose: 40 mg Documented by: Folic Acid (Folic Acid) 1 mg PO DAILYCM [facility] Last Admin: 06/06/19 07:30 Dose: 1 mg Documented by: Furosemide (Lasix) 40 mg PO DAILY [facility] Last Admin: 06/06/19 09:06 Dose: Not Given Documented by: Glucagon () 1 mg IM .X1 PRN PRN Reason: Hypoglycemia Ceftriaxone Sodium 2 gm/ (Sodium Chloride) 50 mls @ 100 mls/hr IV Q24@2200 [facility] Last Admin: 06/05/19 21:46 Dose: 100 mls/hr Documented by: Insulin Human Lispro (Humalog Kwikpen (Bkc)) 0 unit SC ACHS [facility]; Protocol Last Admin: 06/06/19 10:58 Dose: 6 u Documented by: Isosorbide Mononitrate (Imdur) 30 mg PO BID [facility] Last Admin: 06/06/19 09:08 Dose: 30 mg Documented by: Levothyroxine Sodium (Synthroid) 75 mcg PO DAILY@0600 [facility] Last Admin: 06/06/19 06:26 Dose: 75 mcg Documented by: Loratadine (Claritin) 10 mg PO DAILY [facility] Last Admin: 06/06/19 09:07 Dose: 10 mg Documented by: Meclizine HCl (Antivert) 12.5 mg PO DAILY PRN PRN PRN Reason: DIZZINESS Methylcellulose (Citrucel) 2 gm PO DAILY [facility] Last Admin: 06/06/19 07:30 Dose: 2 gm Documented by: Metolazone (Zaroxolyn) 5 mg PO DAILY [facility] Last Admin: 06/06/19 09:09 Dose: 5 mg Documented by: Metoprolol Succinate (Toprol Xl (Beta Dom)) 25 mg PO DAILY [facility] Last Admin: 08/11/19 09:06 Dose: Not Given Documented by: Morphine Sulfate () 2 mg IV Q3H PRN PRN PRN Reason: Severe pain (7-08/05) Ondansetron HCl (Zofran) 4 mg IV Q8H PRN PRN PRN Reason: NAUSEA/VOMITING Pantoprazole Sodium (Protonix) 40 mg PO DAILY [facility] Last Admin: 06/06/19 09:07 Dose: 40 mg Documented by: Polyethylene Glycol (Miralax) 17 gm PO DAILY [facility] Last Admin: 06/06/19 07:30 Dose: 17 gm Documented by: Potassium Chloride (K-Dur) 40 meq PO BIDCM [facility] Stop: 06/08/19 09:31 Last Admin: 06/06/19 10:30 Dose: 40 meq Documented by: Sodium Chloride () 10 - 40 ml IV UD PRN PRN Reason: SALINE FLUSH Last Admin: 06/05/19 21:46 Dose: 10 ml Documented by: Spironolactone (Aldactone) 25 mg PO DAILY [facility] Last Admin: 06/06/19 09:08 Dose: 25 mg Documented by: Medical Necessity - Tobacco Use Smoking Status: Never smoker Assessment/Plan All Active Problems Sepsis (Acute) Urinary tract infection (Acute) The patient is a 79 year old F significant history of CKD stage III; morbid obesity; hypertension; type 2 diabetes; CAD status post CABG and coronary stent and recurrent UTI, 3 or more times in last 1 year is being admitted with lower urinary tract symptoms including burning micturition, suprapubic/perineal heaviness/pain, tachycardia, high-grade fever, tachypnea, leukocytosis and p yuria in the UA. Patient was started on Rocephin for E. coli UTI sensitive to Rocephin. 1. Sepsis ( fever 102.1; tachycardia with rate 113; tachypnea with rate 29; and leukocytosis of 17.3.) and bacteremia secondary to gram-negative nicko/possible E. coli UTI: Patient is being admitted on PCU. Lactic acid is normal. UA shows pyuria 25-50 cells WBC, RBC 0-5, LE 500, nitrite positive. Patient is started on ceftriaxone 2 g daily from ER. Ultrasound kidneys and bladder report: Right kidney not visualized. No hydronephrosis of left kidney. Distended urinary bladder with volume about 200 mL. Normal wall thickness of distended urinary bladder. Patient does not have renal angle tenderness. Patient does not have history of nephrectomy therefore nonvisualization of right kidney probably limited visualization on ultrasound There is subjective and clinical improvement. Blood cultures x1 ordered for evening after 48 hours of antibiotic to see the clearance. COPD Patient does not appear to be in COPD exacerbation. Patient has chronic cough secondary to COPD. She has never been a smoker. Per family recently patient has been requiring more of her inhalers. DuoNeb every 6 hourly while awake and albuterol as needed. PRN albuterol ordered. Obstructive sleep apnea on CPAP with chronic hypoxic respiratory failure. Patient uses 2 to 3 L oxygen at night. Continue CPAP support. Hypertension Blood pressure was 187/83 as per triage vital. Currently blood pressure 105/55. Possible acute on chronic systolic heart failure secondary to fluid overload: Echo in 2013 reported as EF 50% with mild concentric LVH. LA moderately enlarged. RA mildly enlarged. Mild TR, RVSP 44 mmHg. Mild aortic stenosis, mean AV gradient 12 mmHg. It seems patient is mild fluid overloaded. Lasix 20 mg 1 dose ordered. BNP ordered. Chest x-ray portable ordered. 2D echo ordered. Patient is on home medications Lasix; metolazone; Imdur; metoprolol continued with holding parameters. Trend blood pressure and adjust blood pressure medication as necessary. Diabetes mellitus On presentation her blood glucose on BMP was within hospital goal. 1800-calorie restricted diet CKD stage III: BUN/creatinine is improved. Estimated creatinine clearance 30 mils per minute Stable CAD status post CABG and stent: Aspirin and Zocor continued Imdur and metoprolol Gout Allopurinol continued. On colchicine as needed. 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 It showed mild concentric left ventricular hypertrophy. Estimated ejection fraction was 50%. Pulmonary artery systolic pressure was 44. Chest x-ray showed chronic interstitial lung changes without superimposed acute alveolar disease. CT/CTA chest with and without contrast showed findings consistent with mild pulmonary interstitial edema. Moderate cardiomegaly. Coronary artery disease. Lasix and metolazone and Aldactone continued CT chest also shows right-sided aortic arch with a left-sided subclavian and anteriorly located variant left-sided carotid extending from right-sided aortic arch. GERD Omeprazole continued Depression Prozac continued DVT Prophylaxis Subcutaneous Lovenox. Multiple comorbidities complicates the present care and expect difficult and delay recovery The patient is DNR CC. Clinical Impression(s) from Imaging Studies Chest X-Ray 06/04/19 21:25 IMPRESSION: Chronic interstitial lung changes without superimposed acute alveolar disease. 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 Findings are most consistent with mild pulmonary interstitial edema. No visualized pulmonary embolism. Moderate cardiomegaly. Status post sternotomy. Mild cardiomegaly coronary artery disease. Renal Ultrasound 06/05/19 08:23 IMPRESSION: Right kidney is not visualized due to positioning and/or body habitus. There is no visualized hydronephrosis of the left kidney. The study is very limited. Code Visit Inpatient E&M: 58963 Subs Hosp L3
--- NOTE | 2019-06-06 13:04 | RAD_ITS ---
STUDY: X-RAY CHEST REASON FOR EXAM: Female, 79 years old. Shortness of breath and wheezing. TECHNIQUE: Single AP portable view of the chest. COMPARISON: 06/04/2018. FINDINGS: There is elevation of the right hemidiaphragm. No focal infiltrate is seen. There is no evidence of pleural effusions. Sternal cerclage wires and vascular clips are present from a prior sternotomy and coronary artery bypass graft procedure (CABG). The cardiac silhouette remains enlarged. Normal mediastinum and winifred. Normal visualized pulmonary arteries. Normal visualized aortic arch and descending thoracic aorta. The bony structures are unchanged. There is no demonstrated abnormality of the visualized soft tissue structures of the upper abdomen. RAD/Chest 1 View (Portable) IMPRESSION: Elevation of the right hemidiaphragm. Cardiomegaly. No new infiltrate is seen. Electronically Signed: Shaka Aj MD at 13:45 EDT Tel , Service support ,
[2019-06-06] MEDS: Furosemide 20 MG/2 ML VIAL IV (13:12)
[2019-06-06] MEDS: 0.9% NaCl Peripheral Flush Adult/Peds IV ×2 (13:16→22:53)
[2019-06-06 13:47] LABS: BNP,B-Type NATRIURETIC PEPTIDE 565.6 pg/mL (0-100)
[2019-06-06] MEDS: Budesonide Respules 0.5 MG/2 ML AMPUL.NEB. INHALATION ×2 (14:36→19:10)
[2019-06-06 16:20] LABS: Bedside Glucose 233 mg/dL (70-110)
[2019-06-06] MEDS: Acetaminophen 325 MG Tablet 650 MG PO (21:21)
[2019-06-06] MEDS: Atorvastatin Calcium 10 MG Tablet PO (22:37)
[2019-06-07] VITALS (17 sets, daily range): BP systolic 119–137; BP diastolic 51–98; PULSE 82–104; RESP 16–26; TEMP 36.7–37; O2SAT 93–98
[2019-06-07 00:31] LABS: Bedside Glucose 264 mg/dL (70-110)
--- NOTE | 2019-06-07 03:55 | NURSING ---
Pt incontinent of urine. Pt does not want to get up to urinate at this time. Bladder scanned for 289 mL. Unsure of when pt was incontinent. Pt does not want straight cathed.
--- NOTE | 2019-06-07 05:55 | ECHOCS_ITS ---
Reason For Study: Heart Failure/COPD Procedure This was a 2D Doppler, Color Flow transthoracic echocardiogram. The study was technically difficult. Contrast injection was performed. Exam performed portable in patient room. Left Ventricle Mildly dilated left ventricle. The estimated ejection fraction is 35-40 %. Stage 1 diastolic dysfunction. Septal motion consistent with IVCD. There is moderate global hypokinesis of the left ventricle. Right Ventricle Normal size and thickness. Normal systolic function. Mitral Valve Mild diffuse mitral valve thickening. Mild mitral annular calcification extending into the posterior leaflet. Tricuspid Valve Normal tricuspid valve. Unable to estimate RV systolic pressure due to insufficient tricuspid regurgitant envelope. Aortic Valve Trisinus/trileaflet aortic valve. Severe focal aortic valve thickening. Severe restriction of the aortic valve. Moderate aortic stenosis. Peak aortic valve gradient 26 mmHg. Mean aortic valve gradient 16 mmHg. Calculated aortic valve area (continuity equation) is 0.81 cm2. Trivial aortic valve insufficiency. Pulmonic Valve Normal pulmonic valve. Mild (1+) pulmonic valve insufficiency. Great Vessels Normal aortic root. Mild atherosclerosis of the aortic arch. Pericardium/Pleural No pericardial effusion. Medication Diluted definity 4ml given slow IV push to enhance endocardial definition. MMode/2D Measurements & Calculations LVIDd: 5.3 cm IVSd: 1.7 cm LVOT diam: 2.0 cm LVIDs: 4.4 cm LVPWd: 2.2 cm LVOT area: 3.2 cm2 FS: 17.0 % Time Measurements MV dec time: 0.19 sec Doppler Measurements & Calculations MV E max eric: 85.6 cm/sec MV V2 max: 116.0 cm/sec MV P1/2t max eric: 112.6 cm/sec MV A max eirc: 97.3 cm/sec MV max P.4 mmHg MV P1/2t: 54.8 msec MV E/A: 0.88 MV V2 mean: 72.5 cm/sec MV mean P.5 mmHg MV dec slope: 602.2 cm/sec2 MV V2 VTI: 21.5 cm MVA(P1/2t): 4.0 cm2 MVA(VTI): 2.1 cm2 Ao V2 max: 255.4 cm/sec LV V1 max: 63.5 cm/sec SV(LVOT): 45.4 ml Ao max P.1 mmHg LV V1 max P.6 mmHg Ao V2 mean: 185.9 cm/sec LV V1 mean P.82 mmHg Ao mean P.6 mmHg LV V1 mean: 41.6 cm/sec Ao V2 VTI: 54.3 cm LV V1 VTI: 14.0 cm JOE(I,D): 0.84 cm2 JOE(V,D): 0.81 cm2 PA V2 max: 200.8 cm/sec PI end-d eric: 119.2 cm/sec Interpretation Summary Mildly dilated left ventricle. The estimated ejection fraction is 35-40 %. Stage 1 diastolic dysfunction. There is moderate global hypokinesis of the left ventricle. Unable to estimate RV systolic pressure due to insufficient tricuspid regurgitant envelope. Moderate aortic stenosis. Trivial aortic valve insufficiency. Compared to echo report dated 04/26/2013, LV function has gone from 50% to 35%. Severity of aortic stenosis may be underestimated given LV dysfunction. The study was technically difficult. Contrast injection was performed. Would consider a transesophageal echocardiogram if clinically indicated. Ordering Physician: Ryley Tucker Referring Physician: Rommel Arango Performed By: David Angeles RCS
[2019-06-07] MEDS: Levothyroxine 75 MCG Tablet PO (06:28)
[2019-06-07 06:41] LABS: Absolute Lymphocyte Count 0.97 X10^3/uL (0.83-4.51); Absolute Neutrophil Count 7.1 X10^3/uL (2.0-7.7); Basophil# 0.09 X10^3/uL; Basophil% 0.8 % (0-1); Eosinophils% 2.8 % (0-5); Hemoglobin 12.4 g/dL (12.0-15.0); Lymphocyte # 0.97 X10^3/ul (4.0); Lymphocyte % 9.1 % (19-41); Mean Corp Hgb Conc 31.8 g/dL (32-36); Mean Corpuscular Hgb 29.9 pg (27.0-32.0); Mean Platelet Vol. 11.2 fl (6.2-12.0); Monocyte# 2.15 X10^3/uL; Monocyte% 20.1 % (0-10); NRBC Flagged by Analyzer 0 % (0-5); Neutrophil # 7.12 X10^3/uL (2.7-7.7); Neutrophil % 66.7 % (47-70); POSITIVE DIFFERENTIAL YES; Platelet Count 183 K/mm3 (150-450); RBC Distribution Width CV 14.5 % (11.6-14.6); RBC Distribution Width SD 49.6 fl (35.1-43.9); Red Blood Count 4.15 M/mm3 (4.2-5.4); White Blood Count 10.7 K/mm3 (4.4-11.0)
[2019-06-07] MEDS: Insulin Lispro 100 UNIT/ML INSULN.PEN SC ×4 (06:52→22:19)
[2019-06-07 06:56] LABS: Differential Indicated SCAN CRITERIA MET
[2019-06-07] MEDS: Ipratropium/Albuterol Sulfate 3 ML AMPUL.NEB INHALATION ×3 (06:59→18:53)
[2019-06-07] MEDS: Budesonide Respules 0.5 MG/2 ML AMPUL.NEB. INHALATION ×2 (06:59→18:53)
[2019-06-07 07:01] LABS: Magnesium 1.8 mg/dL (1.6-2.6)
[2019-06-07 07:03] LABS: Anion Gap 7 (5-15); BUN 24 mg/dL (7-18); Calcium,Total 8.6 mg/dL (8.5-10.1); Chloride 99 mmol/L (98-107); Creatinine, Serum 1.33 mg/dL (0.55-1.02); EST Glomerular Filtration Rate 41 mL/min (>60); Est Glom Filt Rate - Afr Amer 50 mL/min (>60); Estimated Creatinine Clearance 28.84 ml/min; Glucose 222 mg/dL (74-106); Sodium Level 137 mmol/L (136-145)
[2019-06-07 07:09] LABS: Differential Comment SCANNED
[2019-06-07] MEDS: Aspirin 81 MG TAB.CHEW PO (07:47)
[2019-06-07] MEDS: Folic Acid 1 MG Tablet PO (07:47)
[2019-06-07] MEDS: Allopurinol 100 MG Tablet PO (09:32)
[2019-06-07] MEDS: Spironolactone 25 MG Tablet PO (09:32)
[2019-06-07] MEDS: Methylcellulose 2 GM Bottle PO (09:33)
[2019-06-07] MEDS: Isosorbide Mononitrate 30 MG Tablet PO ×2 (09:33→22:16)
[2019-06-07] MEDS: FLUoxetine 20 MG Capsule 40 MG PO (09:33)
[2019-06-07] MEDS: Pantoprazole Sodium 40 MG Tablet PO (09:33)
[2019-06-07] MEDS: Enoxaparin 30 MG/0.3 ML Syringe SC (09:34)
[2019-06-07] MEDS: metOLazone 5 MG Tablet PO (09:34)
[2019-06-07] MEDS: Furosemide 40 MG Tablet PO (09:34)
[2019-06-07] MEDS: Metoprolol(XL)Succ 25 MG Tablet PO (09:35)
[2019-06-07] MEDS: Polyethylene Glycol 3350 17 GM PACKET PO (09:35)
[2019-06-07] MEDS: Loratadine 10 MG Tablet PO (09:35)
[2019-06-07 11:25] LABS: Bedside Glucose 259 mg/dL (70-110)
[2019-06-07] MEDS: 0.9% NaCl Peripheral Flush Adult/Peds IV (11:27)
--- NOTE | 2019-06-07 13:14 | PN_ITS ---
Patient Problems: Active and Suspected Problems Sepsis (Acute) Urinary tract infection (Acute) Bacteremia (Acute) Subjective: Still incontinent, states normally, she is incontinent, but when she cannot make it to the bathroom in time. Trouble swallowing the large potassium pills. Vitals/I&O's: Vital Signs Temp Pulse Resp BP Pulse Ox 36.9 C 86 16 121/98 H 96 06/07/19 11:33 06/07/19 11:46 06/07/19 11:33 06/07/19 11:33 06/07/19 11:33 Oxygen Flow Rate (L/min) 2 Oxygen Delivery Method Nasal Cannula Weight: 105.8 kg Body Mass Index (BMI) 40.7 Intake and Output for Last 24 Hours 06/05/19 06/06/19 06/07/19 23:59 23:59 23:59 Intake Total 1720.3 / 1720.3 1583.9 / 1583.9 450 / 450 Output Total 1050 / 1050 250 / 250 200 / 200 Balance 670.3 / 670.3 1333.9 / 1333.9 250 / 250 General: Alert, No apparent distress HEENT: Atraumatic, Normocephalic Oral: No Gingival or Mucosal Lesions/ Ulcerations, Dry Mucosa Neck: No Nodes, Thyroid Normal Size and Texture Lungs: Clear to auscultation, Normal air movement, No rhonchi, No wheeze, No rales Cardiovascular: Regular rate, Regular Rhythm, Normal S1, Normal S2 Abdomen: Bowel Sounds Present, Soft, Non Tender, Non-Distended, Obese Extremities: No edema, No Calf Tenderness Skin: No rashes, No breakdown Musculoskeletal: No Tenderness to Palpation of Joints or Extremities, No Muscle Wasting Psych/Mental Status: Normal Affect, Appropriate Microbiology Past 72 Hours 06/05/19 00:55 Urine Catheter - Catheter Urine Culture - Preliminary Presumptive E. 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 06/04/19 21:15 Blood Culture (Wb) - Anticubital Left Blood Culture - Preliminary Escherichia coli Laboratory Results 06/06/19 05:31: B-Natriuretic Peptide 565.6 H 06/06/19 16:11: POC Glucose 233 H 06/06/19 22:35: POC Glucose 264 H 06/07/19 06:00: WBC 10.7, RBC 4.15 L, Hgb 12.4, Hct 39.0, MCV 94.0, MCH 29.9, MCHC 31.8 L, RDW Std Deviation 49.6 H, RDW Coeff of Oscar 14.5, Plt Count 183, MPV 11.2, Immature Gran % (Auto) 0.500, Neut % (Auto) 66.7, Lymph % (Auto) 9.1 L, [place] % (Auto) 20.1 H, Eos % (Auto) 2.8, Baso % (Auto) 0.8, Absolute Neuts (auto) 7.1, Absolute Lymphs (auto) 0.97, Nucleated RBC % 0, Differential Comment SCANNED 06/07/19 06:00: Sodium 137, Potassium 4.0, Chloride 99, Carbon Dioxide 31.0, Anion Gap 7, BUN 24 H, Creatinine 1.33 H, Estim Creat Clear Calc 28.84, Est GFR (MDRD) Af Amer 50 L, Est GFR (MDRD) Non-Af 41 L, BUN/Creatinine Ratio 18.0, Glucose 222 H, Calcium 8.6 06/07/19 06:00: Magnesium 1.8 06/07/19 11:14: POC Glucose 259 H Current Medications Acetaminophen (Tylenol) 650 mg PO Q6H PRN PRN PRN Reason: Mild Pain (1-3)/Temp > 100.7 F Last Admin: 06/06/19 21:21 Dose: 650 mg Documented by: Albuterol Sulfate (Ventolin Aerosols) 2.5 mg INHALATION Q2H PRN PRN PRN Reason: SOB/WHEEZING Albuterol/Ipratropium (Duoneb) 3 ml INHALATION Q4HWA.RT [facility] Last Admin: 06/07/19 11:16 Dose: Not Given Documented by: [facility]op[facility]) [facility] Last Admin: 06/07/19 09:32 Dose: 100 mg Documented by: Aspirin (Aspirin, Baby) 81 mg PO DAILY@0800 [facility] Last Admin: 06/07/19 07:47 Dose: 81 mg Documented by: Atorvastatin Calcium (Lipitor) 10 mg PO DAILY@2200 [facility] Last Admin: 06/06/19 22:37 Dose: 10 mg Documented by: Bisacodyl (Dulcolax) 5 mg PO DAILY PRN PRN PRN Reason: Constipation Budesonide (Pulmicort Aerosol) 0.5 mg INHALATION BID.RT [facility] Stop: 06/09/19 13:31 Last Admin: 06/07/19 06:59 Dose: 0.5 mg Documented by: Dextrose (D50w Syringe) 0 gm IV X1 PRN; Protocol PRN Reason: Hypoglycemia Enoxaparin Sodium (Lovenox) 30 mg SC DAILY@1000 [facility] Last Admin: 06/07/19 09:34 Dose: 30 mg Documented by: Fluoxetine HCl (Prozac) 40 mg PO DAILY [facility] Last Admin: 06/07/19 09:33 Dose: 40 mg Documented by: Folic Acid (Folic Acid) 1 mg PO DAILYCM [facility] Last Admin: 06/07/19 07:47 Dose: 1 mg Documented by: Furosemide (Lasix) 40 mg PO DAILY [facility] Last Admin: 06/07/19 09:34 Dose: 40 mg Documented by: Glucagon () 1 mg IM .X1 PRN PRN Reason: Hypoglycemia Meropenem 1 gm/ Sodium (Chloride) 120 mls @ 33 mls/hr IV Q12 [facility] Last Admin: 06/07/19 11:26 Dose: 33 mls/hr Documented by: Insulin Human Lispro (Humalog Kwikpen (Bkc)) 0 unit SC ACHS [facility]; Protocol Last Admin: 06/07/19 11:26 Dose: 4 u Documented by: Isosorbide Mononitrate (Imdur) 30 mg PO BID [facility] Last Admin: 06/07/19 09:33 Dose: 30 mg Documented by: Levothyroxine Sodium (Synthroid) 75 mcg PO DAILY@0600 [facility] Last Admin: 06/07/19 06:28 Dose: 75 mcg Documented by: Loratadine (Claritin) 10 mg PO DAILY [facility] Last Admin: 06/07/19 09:35 Dose: 10 mg Documented by: Meclizine HCl (Antivert) 12.5 mg PO DAILY PRN PRN PRN Reason: DIZZINESS Methylcellulose (Citrucel) 2 gm PO DAILY [facility] Last Admin: 06/07/19 09:33 Dose: 2 gm Documented by: Metolazone (Zaroxolyn) 5 mg PO DAILY [facility] Last Admin: 06/07/19 09:34 Dose: 5 mg Documented by: Metoprolol Succinate (Toprol Xl (Beta Dom)) 25 mg PO DAILY [facility] Last Admin: 06/07/19 09:35 Dose: 25 mg Documented by: Ondansetron HCl (Zofran) 4 mg IV Q8H PRN PRN PRN Reason: NAUSEA/VOMITING Pantoprazole Sodium (Protonix) 40 mg PO DAILY [facility] Last Admin: 06/07/19 09:33 Dose: 40 mg Documented by: Polyethylene Glycol (Miralax) 17 gm PO DAILY [facility] Last Admin: 06/07/19 09:35 Dose: 17 gm Documented by: Potassium Chloride (K-Dur) 40 meq PO BIDCM [facility] Stop: 06/08/19 09:31 Last Admin: 06/07/19 07:48 Dose: 40 meq Documented by: Sodium Chloride () 10 - 40 ml IV UD PRN PRN Reason: SALINE FLUSH Last Admin: 06/07/19 11:27 Dose: 10 ml Documented by: Spironolactone (Aldactone) 25 mg PO DAILY [facility] Last Admin: 06/07/19 09:32 Dose: 25 mg Documented by: Medical Necessity - Tobacco Use Smoking Status: Never smoker Assessment/Plan All Active Problems Sepsis (Acute) Urinary tract infection (Acute) Bacteremia (Acute) 1. Sepsis: * POA * 2/2 bacteremia and UTI * improved 2. UTI * ESBL E coli * change to meropenem on 06/07 (from CTX) 3. Bacteremia: * 2/2 UTI * repeat BCx performed on 06/07 * echo showed no obvious vegetation 4. Cardiomyopathy * EF 35-40%, down from 50% in 2013 * continue furosemide, spironolactone, metolazone * hold RITA- given (though, TTE was unable determine severity) * follow up with cardiology as outpt. 5. DM2 uncontrolled * resume NPH and prandial 6. VTE prophylaxis: moderate risk. enoxaparin. Code Visit Inpatient E&M: 01010 Subs Hosp L2
[2019-06-07 13:30] LABS: Pathologist Review Reviewed
--- NOTE | 2019-06-07 13:52 | CON.PCM_ITS ---
Reason for Consult: E. coli bacteremia from a source Consulted by: Dr. Murillo History of Present Illness: The patient is a 79 year old F [] This is a very pleasant 79-year-old white female with a past medical history of obesity, chronic renal disease, gouty arthritis in the past who recently was treated for urinary tract infection by her primary care physician with oral ciprofloxacin and then switched to IM ceftriaxone and that regimen was given roughly 10 days ago. Patient then developed acute shaking chills and high fever on Friday late afternoon along with altered mental status. Patient was subsequent admitted and her admission blood cultures are now growing ESBL positive E. coli. Patient was initially placed on ceftriaxone but her antimicrobial regimen was changed to meropenem 1 g IV every 12 hours. History is obtained through talking to the patient as well as 1 of the patient's daughters Surinder who I contacted. Surinder was kind enough to tell me the antibiotic regimen that the patient was on earlier this month. Patient is currently alert conversive in no acute distress denies any flank pain. No gastrointestinal distress. She does have right foot pain and she is concerned of a flareup of her gout. No headaches or any focal neurological symptoms she is tolerating meropenem well. - Medical History Past Medical History (Chronic Problems): Chronic Problems Morbid obesity (Chronic) Chronic respiratory failure (Chronic) Essential hypertension (Chronic) Type II diabetes mellitus (Chronic) CAD (coronary artery disease) (Chronic) Allergies/Adverse Reactions: Allergies No Known Allergies Allergy (Verified 06/04/19 20:36) Home Medications: Ambulatory Orders Medication Instructions Recorded Albuterol Aerosols [Ventolin 2.5 mg INHALATION Q4HWA.RT PRN 06/05/19 Aerosols] Allopurinol 100 mg PO DAILY 06/05/19 Aspirin [Aspirin, Baby] 81 mg PO DAILY@0800 06/05/19 Colchicine 0.6 mg PO PRN PRN 06/05/19 Fluoxetine HCl [Prozac] 40 mg PO DAILY 06/05/19 Folic Acid 1 mg PO DAILY 06/05/19 Furosemide [Lasix] 40 mg PO DAILY 06/05/19 Insulin NPH Human Isophane 24 units SUBCUT QHS 06/05/19 [Humulin N] Insulin NPH Human Isophane 26 units SUBCUT BREAKFAST 06/05/19 [Humulin N] Insulin Regular, Human [Humulin R] 10 units SUBCUT QHS 06/05/19 Insulin Regular, Human [Humulin R] 16 units SUBCUT BREAKFAST 06/05/19 Isosorbide Mononitrate [Imdur] 60 mg PO BID 06/05/19 Levothyroxine [Synthroid] 75 mcg PO DAILY 06/05/19 Loratadine 10 mg PO DAILY 06/05/19 Meclizine HCl [Antivert] 12.5 mg PO DAILY PRN PRN 06/05/19 Methylcellulose (with Sugar) 850 gm PO DAILY 06/05/19 [Citrucel Powder] Metolazone [Zaroxolyn] 5 mg PO DAILY 06/05/19 Metoprolol Succinate [Toprol Xl] 25 mg PO DAILY 06/05/19 Nitroglycerin (INPATIENT USE) 0.4 mg SUBLINGUAL Q5M PRN 06/05/19 [Nitrostat] Omeprazole 40 mg PO DAILY 06/05/19 Polyethylene Glycol 3350 [Miralax] 17 gm PO DAILY 06/05/19 Potassium Chloride 20 meq PO BID 06/05/19 Simvastatin 20 mg PO QHS 06/05/19 Spironolactone 25 mg PO DAILY 06/05/19 Review of Systems Comment: stated a history of present illness others negative Vital Signs Temp Pulse Resp BP Pulse Ox 98.4 F 86 16 121/98 H 96 06/07/19 11:33 06/07/19 11:46 06/07/19 11:33 06/07/19 11:33 06/07/19 11:33 Oxygen Flow Rate (L/min) 2 Oxygen Delivery Method Nasal Cannula Weight: 105.8 kg Body Mass Index (BMI) 40.7 Alert and conversive in no acute distress lungs are clear heart exam S1-S2 abdomen is obese but soft no focal tenderness she does have localized tenderness in the right foot but no erythema Microbiology Past 72 Hours 06/05/19 00:55 Urine Culture - Preliminary Urine Catheter - Catheter Presumptive E. coli 06/04/19 21:17 Blood Culture - Final Blood Culture (Wb) #2 - Right Hand GNR lactose sports coordinator 06/04/19 21:15 Blood Culture - Preliminary Blood Culture (Wb) - Anticubital Left Escherichia coli Laboratory Tests Past 24 Hrs 06/06/19 06/07/19 06/07/19 05:31 06:00 06:00 WBC 10.7 RBC 4.15 L Hgb 12.4 Hct 39.0 MCV 94.0 MCH 29.9 MCHC 31.8 L RDW Std Deviation 49.6 H RDW Coeff of Oscar 14.5 Plt Count 183 MPV 11.2 Immature Gran % (Auto) 0.500 Neut % (Auto) 66.7 Lymph % (Auto) 9.1 L [place] % (Auto) 20.1 H Eos % (Auto) 2.8 Baso % (Auto) 0.8 Absolute Neuts (auto) 7.1 Absolute Lymphs (auto) 0.97 Nucleated RBC % 0 Differential Comment SCANNED Diff Path Review Reviewed Sodium 137 Potassium 4.0 Chloride 99 Carbon Dioxide 31.0 Anion Gap 7 BUN 24 H Creatinine 1.33 H Estim Creat Clear Calc 28.84 Est GFR (MDRD) Af Amer 50 L Est GFR (MDRD) Non-Af 41 L BUN/Creatinine Ratio 18.0 Glucose 222 H Calcium 8.6 Magnesium 06/07/19 06:00 WBC RBC Hgb Hct MCV MCH MCHC RDW Std Deviation RDW Coeff of Oscar Plt Count MPV Immature Gran % (Auto) Neut % (Auto) Lymph % (Auto) [place] % (Auto) Eos % (Auto) Baso % (Auto) Absolute Neuts (auto) Absolute Lymphs (auto) Nucleated RBC % Differential Comment Diff Path Review Sodium Potassium Chloride Carbon Dioxide Anion Gap BUN Creatinine Estim Creat Clear Calc Est GFR (MDRD) Af Amer Est GFR (MDRD) Non-Af BUN/Creatinine Ratio Glucose Calcium Magnesium 1.8 - Other Studies Radiology: [] Other Studies: [] Route of nutrition/ use of supplements: [] Nutritional Intake: [] IV Site: [] Wilcox Catheter: [] - Assessment/Plan Antibiotics: [] Assessment/Plan: [] Active and Suspected Problems Bacteremia (Acute) Sepsis (Acute) Urinary tract infection (Acute) E. coli bacteremia from a source at this point we will continue meropenem and continue supportive care.
[2019-06-07] MEDS: Acetaminophen 325 MG Tablet 650 MG PO (14:35)
[2019-06-07 16:36] LABS: Bedside Glucose 301 mg/dL (70-110)
[2019-06-07] MEDS: Atorvastatin Calcium 10 MG Tablet PO (22:16)
[2019-06-07] MEDS: Insulin Lispro 100 UNIT/ML INSULN.PEN 10 UNIT SC (22:19)
[2019-06-07] MEDS: Insulin NPH Human 100 UNITS/ML PEN 24 UNITS SC (22:20)
[2019-06-07 22:51] LABS: Bedside Glucose 301 mg/dL (70-110)
[2019-06-08] VITALS (9 sets, daily range): BP systolic 120–130; BP diastolic 50–65; PULSE 70–92; RESP 16–18; TEMP 36.3–37; O2SAT 92–97
[2019-06-08 00:15] LABS: Bedside Glucose 222 mg/dL (70-110)
[2019-06-08] MEDS: Acetaminophen 325 MG Tablet 650 MG PO (00:27)
[2019-06-08] MEDS: Levothyroxine 75 MCG Tablet PO (06:15)
[2019-06-08] MEDS: Ipratropium/Albuterol Sulfate 3 ML AMPUL.NEB INHALATION ×4 (06:59→19:04)
[2019-06-08] MEDS: Budesonide Respules 0.5 MG/2 ML AMPUL.NEB. INHALATION ×2 (06:59→19:04)
[2019-06-08 07:09] LABS: BUN 23 mg/dL (7-18); Creatinine, Serum 1.14 mg/dL (0.55-1.02); Glucose 244 mg/dL (74-106)
[2019-06-08 07:10] LABS: Anion Gap 6 (5-15); BUN/Creat Ratio 20.2 RATIO (10-20); Calcium,Total 8.9 mg/dL (8.5-10.1); Chloride 96 mmol/L (98-107); EST Glomerular Filtration Rate 49 mL/min (>60); Est Glom Filt Rate - Afr Amer 59 mL/min (>60); Estimated Creatinine Clearance 33.64 ml/min; Sodium Level 135 mmol/L (136-145)
[2019-06-08] MEDS: Furosemide 40 MG Tablet PO (08:46)
[2019-06-08] MEDS: Allopurinol 100 MG Tablet PO (08:46)
[2019-06-08] MEDS: Loratadine 10 MG Tablet PO (08:46)
[2019-06-08] MEDS: FLUoxetine 20 MG Capsule 40 MG PO (08:46)
[2019-06-08] MEDS: Aspirin 81 MG TAB.CHEW PO (08:46)
[2019-06-08] MEDS: Folic Acid 1 MG Tablet PO (08:46)
[2019-06-08] MEDS: Pantoprazole Sodium 40 MG Tablet PO (08:46)
[2019-06-08] MEDS: Isosorbide Mononitrate 30 MG Tablet PO ×2 (08:46→21:09)
[2019-06-08] MEDS: metOLazone 5 MG Tablet PO (08:46)
[2019-06-08] MEDS: Metoprolol(XL)Succ 25 MG Tablet PO (08:46)
[2019-06-08] MEDS: Spironolactone 25 MG Tablet PO (08:46)
[2019-06-08] MEDS: Polyethylene Glycol 3350 17 GM PACKET PO (08:47)
[2019-06-08] MEDS: Methylcellulose 2 GM Bottle PO (08:47)
[2019-06-08] MEDS: 0.9% NaCl Peripheral Flush Adult/Peds IV (08:47)
[2019-06-08] MEDS: Insulin NPH Human 100 UNITS/ML PEN 26 UNITS SC (08:48)
[2019-06-08] MEDS: Insulin Lispro 100 UNIT/ML INSULN.PEN SC ×4 (08:48→21:10)
[2019-06-08] MEDS: Enoxaparin 30 MG/0.3 ML Syringe SC (08:48)
[2019-06-08] MEDS: Insulin Lispro 100 UNIT/ML INSULN.PEN 16 UNIT SC (08:49)
[2019-06-08 09:21] LABS: Bedside Glucose 251 mg/dL (70-110)
--- NOTE | 2019-06-08 11:04 | PCM.PN.ID ---
Patient Problems: Active and Suspected Problems Sepsis (Acute) Urinary tract infection (Acute) Subjective: Patient out of bed onto a commode. States that feeling better, tolerating meropenem well. Complaining of right foot pain which she attributes as her gouty flareup Objective: Alert does not appear toxic lungs are clear heart exam S1-S2 abdomen is obese but soft - Physical Exam Vital Signs Temp Pulse Resp BP Pulse Ox 97.3 F L 82 16 126/52 H 93 06/08/19 09:00 06/08/19 10:29 06/08/19 10:29 06/08/19 09:00 06/08/19 09:00 Oxygen Flow Rate (L/min) 2 Oxygen Delivery Method Room Air Weight: 105.8 kg Body Mass Index (BMI) 40.7 Intake and Output for Last 24 Hours 06/06/19 06/07/19 06/08/19 23:59 23:59 23:59 Intake Total 1583.9 / 1583.9 1693 / 1693 187 / 187 Output Total 250 / 250 1999 / 1999 400 / 400 Balance 1333.9 / 1333.9 -307 / -307 -213 / -213 Microbiology Past 72 Hours 06/04/19 21:15 Blood Culture - Final Blood Culture (Wb) - Anticubital Left Escherichia coli 06/05/19 00:55 Urine Culture - Final Urine Catheter - Catheter Presumptive E. coli 06/04/19 21:17 Blood Culture - Final Blood Culture (Wb) #2 - Right Hand GNR lactose public health outreach worker Laboratory Tests Past 24 Hrs 06/06/19 06/08/19 05:31 05:58 Diff Path Review Reviewed Sodium 135 L Potassium 4.0 Chloride 96 L Carbon Dioxide 33.0 H Anion Gap 6 BUN 23 H Creatinine 1.14 H Estim Creat Clear Calc 33.64 Est GFR (MDRD) Af Amer 59 L Est GFR (MDRD) Non-Af 49 L BUN/Creatinine Ratio 20.2 H Glucose 244 H Calcium 8.9 POC Glucose 06/08/19 06/07/19 06/07/19 08:43 22:11 16:17 POC Glucose 251 H 301 H 301 H 06/07/19 06/07/19 11:14 06:50 POC Glucose 259 H 222 H Medical Necessity - Tobacco Use Smoking Status: Never smoker Route of nutrition/ use of supplements: [] Nutritional Intake: [] IV Site: [] Wilcox Catheter: [] - Assessment/Plan E. coli bacteremia from a source. Continue meropenem and continue supportive care.
--- NOTE | 2019-06-08 11:35 | PN_ITS ---
Patient Problems: Active and Suspected Problems Sepsis (Acute) Urinary tract infection (Acute) Subjective: Did not sleep well last night. No new complaints. Vitals/I&O's: Vital Signs Temp Pulse Resp BP Pulse Ox 36.3 C L 82 16 126/52 H 93 06/08/19 09:00 06/08/19 10:29 06/08/19 10:29 06/08/19 09:00 06/08/19 09:00 Oxygen Flow Rate (L/min) 2 Oxygen Delivery Method Room Air Weight: 105.8 kg Body Mass Index (BMI) 40.7 Intake and Output for Last 24 Hours 06/06/19 06/07/19 06/08/19 23:59 23:59 23:59 Intake Total 1583.9 / 1583.9 1693 / 1693 187 / 187 Output Total 250 / 250 1999 / 1999 400 / 400 Balance 1333.9 / 1333.9 -307 / -307 -213 / -213 General: Alert, No apparent distress HEENT: Atraumatic, Normocephalic Oral: Moist Mucosa, No Gingival or Mucosal Lesions/ Ulcerations Neck: No Nodes, Thyroid Normal Size and Texture Lungs: Clear to auscultation, Normal air movement, No rhonchi, No wheeze, No rales Cardiovascular: Regular rate, Regular Rhythm, Normal S1, Normal S2 Abdomen: Bowel Sounds Present, Soft, Non Tender, Non-Distended, No Hepato- splenomegaly Extremities: No edema, No Calf Tenderness Skin: No rashes, No breakdown Psych/Mental Status: Normal Affect, Appropriate Microbiology Past 72 Hours 06/04/19 21:15 Blood Culture (Wb) - Anticubital Left Blood Culture - Final Escherichia coli 06/05/19 00:55 Urine Catheter - Catheter Urine Culture - Final Presumptive E. coli 06/04/19 21:17 Blood Culture (Wb) #2 - Right Hand Blood Culture - Final GNR lactose radiographer mammographer Laboratory Results 06/06/19 05:31: Diff Path Review Reviewed 06/07/19 06:50: POC Glucose 222 H 06/07/19 16:17: POC Glucose 301 H 06/07/19 22:11: POC Glucose 301 H 06/08/19 05:58: Sodium 135 L, Potassium 4.0, Chloride 96 L, Carbon Dioxide 33.0 H, Anion Gap 6, BUN 23 H, Creatinine 1.14 H, Estim Creat Clear Calc 33.64, Est GFR (MDRD) Af Amer 59 L, Est GFR (MDRD) Non-Af 49 L, BUN/Creatinine Ratio 20.2 H , Glucose 244 H, Calcium 8.9 06/08/19 08:43: POC Glucose 251 H Current Medications Acetaminophen (Tylenol) 650 mg PO Q6H PRN PRN PRN Reason: Mild Pain (1-3)/Temp > 100.7 F Last Admin: 06/08/19 00:27 Dose: 650 mg Documented by: Albuterol Sulfate (Ventolin Aerosols) 2.5 mg INHALATION Q2H PRN PRN PRN Reason: SOB/WHEEZING Albuterol/Ipratropium (Duoneb) 3 ml INHALATION Q4HWA.[facility] Last Admin: 06/08/19 10:28 Dose: 3 ml Documented by: [facility] Last Admin: 06/08/19 08:46 Dose: 100 mg Documented by: Aspirin (Aspirin, Baby) 81 mg PO DAILY@0800 [facility] Last Admin: 06/08/19 08:46 Dose: 81 mg Documented by: Atorvastatin Calcium (Lipitor) 10 mg PO DAILY@2200 [facility] Last Admin: 06/07/19 22:16 Dose: 10 mg Documented by: Bisacodyl (Dulcolax) 5 mg PO DAILY PRN PRN PRN Reason: Constipation Budesonide (Pulmicort Aerosol) 0.5 mg INHALATION BID.RT [facility] Stop: 06/09/19 13:31 Last Admin: 06/08/19 06:59 Dose: 0.5 mg Documented by: Colchicine (Colchicine) 0.6 mg PO DAILY PRN PRN Reason: MILD-MOD PAIN (1-5/10) Last Admin: 06/08/19 06:17 Dose: 0.6 mg Documented by: Dextrose (D50w Syringe) 0 gm IV X1 PRN; Protocol PRN Reason: Hypoglycemia Enoxaparin Sodium (Lovenox) 30 mg SC DAILY@1000 [facility] Last Admin: 06/08/19 08:48 Dose: 30 mg Documented by: Fluoxetine HCl (Prozac) 40 mg PO DAILY [facility] Last Admin: 06/08/19 08:46 Dose: 40 mg Documented by: [facility] ([facility]) [facility] Last Admin: 06/08/19 08:46 Dose: 1 mg Documented by: Furosemide (Lasix) 40 mg PO DAILY [facility] Last Admin: 06/08/19 08:46 Dose: 40 mg Documented by: Glucagon () 1 mg IM .X1 PRN PRN Reason: Hypoglycemia Meropenem 1 gm/ Sodium (Chloride) 120 mls @ 33 mls/hr IV Q12 [facility] Last Admin: 06/08/19 08:47 Dose: 33 mls/hr Documented by: Insulin Human Lispro (Humalog Kwikpen (Bkc)) 0 unit SC ACHS [facility]; Protocol Last Admin: 06/08/19 08:48 Dose: 4 u Documented by: Insulin Human Lispro (Humalog Kwikpen (Bkc)) 10 unit SC QHS [facility] Last Admin: 06/07/19 22:19 Dose: 10 u Documented by: Insulin Human Lispro (Humalog Kwikpen (Bkc)) 16 unit SC BREAKFAST [facility] Last Admin: 06/08/19 08:49 Dose: 16 u Documented by: Insulin Human NPH (Humulin N (Bkc)) 24 units SC QHS [facility] Last Admin: 06/07/19 22:20 Dose: 24 u Documented by: Insulin Human NPH (Humulin N (Bkc)) 26 units SC BREAKFAST [facility] Last Admin: 06/08/19 08:48 Dose: 26 units Documented by: Isosorbide Mononitrate (Imdur) 30 mg PO BID [facility] Last Admin: 06/08/19 08:46 Dose: 30 mg Documented by: Levothyroxine Sodium (Synthroid) 75 mcg PO DAILY@0600 [facility] Last Admin: 06/08/19 06:15 Dose: 75 mcg Documented by: Loratadine (Claritin) 10 mg PO DAILY [facility] Last Admin: 06/08/19 08:46 Dose: 10 mg Documented by: Meclizine HCl (Antivert) 12.5 mg PO DAILY PRN PRN PRN Reason: DIZZINESS Methylcellulose (Citrucel) 2 gm PO DAILY [facility] Last Admin: 06/08/19 08:47 Dose: 2 gm Documented by: Metolazone (Zaroxolyn) 5 mg PO DAILY [facility] Last Admin: 06/08/19 08:46 Dose: 5 mg Documented by: Metoprolol Succinate (Toprol Xl (Beta Dom)) 25 mg PO DAILY [facility] Last Admin: 06/08/19 08:46 Dose: 25 mg Documented by: Ondansetron HCl (Zofran) 4 mg IV Q8H PRN PRN PRN Reason: NAUSEA/VOMITING Pantoprazole Sodium (Protonix) 40 mg PO DAILY [facility] Last Admin: 06/08/19 08:46 Dose: 40 mg Documented by: Polyethylene Glycol (Miralax) 17 gm PO DAILY [facility] Last Admin: 06/08/19 08:47 Dose: 17 gm Documented by: Sodium Chloride () 10 - 40 ml IV UD PRN PRN Reason: SALINE FLUSH Last Admin: 06/08/19 08:47 Dose: 10 ml Documented by: Spironolactone (Aldactone) 25 mg PO DAILY [facility] Last Admin: 06/08/19 08:46 Dose: 25 mg Documented by: Medical Necessity - Tobacco Use Smoking Status: Never smoker Assessment/Plan All Active Problems Bacteremia (Acute) Sepsis (Acute) Urinary tract infection (Acute) 1. Sepsis: * POA * 2/2 bacteremia and UTI * improved 2. UTI * ESBL E coli * change to meropenem on 06/07 (from CTX) * DW Dr. Curran, continue meropenem for now, may use IM Ertapenem as outpt. 3. Bacteremia: * 2/2 UTI * repeat BCx performed on 06/07 * echo showed no obvious vegetation 4. Cardiomyopathy * EF 35-40%, down from 50% in 2013 * continue furosemide, spironolactone, metolazone * hold RITA- given (though, TTE was unable determine severity) * follow up with cardiology as outpt. 5. DM2 uncontrolled * resume NPH and prandial 6. VTE prophylaxis: moderate risk. enoxaparin. Code Visit Inpatient E&M: 70405 Subs Hosp L2
[2019-06-08 12:00] LABS: Bedside Glucose 229 mg/dL (70-110)
[2019-06-08 16:06] LABS: Bedside Glucose 180 mg/dL (70-110)
[2019-06-08] MEDS: Atorvastatin Calcium 10 MG Tablet PO (21:09)
[2019-06-08] MEDS: Insulin Lispro 100 UNIT/ML INSULN.PEN 10 UNIT SC (21:10)
[2019-06-08] MEDS: Insulin NPH Human 100 UNITS/ML PEN 24 UNITS SC (21:11)
[2019-06-08 21:21] LABS: Bedside Glucose 342 mg/dL (70-110)
--- NOTE | 2019-06-08 22:18 | CPS ---
pt did not want to wear at this time
[2019-06-09] VITALS (7 sets, daily range): BP systolic 105–147; BP diastolic 58–74; PULSE 72–84; RESP 16–18; TEMP 36.7–37.2; O2SAT 95–98
[2019-06-09] MEDS: Levothyroxine 75 MCG Tablet PO (05:18)
[2019-06-09 06:52] LABS: Anion Gap 8 (5-15); BUN 23 mg/dL (7-18); BUN/Creat Ratio 22.1 RATIO (10-20); Calcium,Total 8.8 mg/dL (8.5-10.1); Chloride 99 mmol/L (98-107); Creatinine, Serum 1.04 mg/dL (0.55-1.02); EST Glomerular Filtration Rate 54 mL/min (>60); Est Glom Filt Rate - Afr Amer 66 mL/min (>60); Estimated Creatinine Clearance 36.88 ml/min; Glucose 169 mg/dL (74-106); Potassium 3.7 mmol/L (3.5-5.1); Sodium Level 136 mmol/L (136-145)
[2019-06-09] MEDS: Ipratropium/Albuterol Sulfate 3 ML AMPUL.NEB INHALATION ×3 (07:06→15:07)
[2019-06-09] MEDS: Budesonide Respules 0.5 MG/2 ML AMPUL.NEB. INHALATION (07:06)
[2019-06-09 08:01] LABS: Bedside Glucose 157 mg/dL (70-110)
[2019-06-09] MEDS: Insulin Lispro 100 UNIT/ML INSULN.PEN SC ×2 (08:34→12:22)
[2019-06-09] MEDS: Insulin Lispro 100 UNIT/ML INSULN.PEN 16 UNIT SC (08:34)
[2019-06-09] MEDS: Aspirin 81 MG TAB.CHEW PO (08:35)
[2019-06-09] MEDS: Insulin NPH Human 100 UNITS/ML PEN 26 UNITS SC (08:35)
[2019-06-09] MEDS: Allopurinol 100 MG Tablet PO (08:35)
[2019-06-09] MEDS: Folic Acid 1 MG Tablet PO (08:35)
[2019-06-09] MEDS: Furosemide 40 MG Tablet PO (10:01)
[2019-06-09] MEDS: FLUoxetine 20 MG Capsule 40 MG PO (10:01)
[2019-06-09] MEDS: Pantoprazole Sodium 40 MG Tablet PO (10:01)
[2019-06-09] MEDS: Metoprolol(XL)Succ 25 MG Tablet PO (10:01)
[2019-06-09] MEDS: Methylcellulose 2 GM Bottle PO (10:02)
[2019-06-09] MEDS: Isosorbide Mononitrate 30 MG Tablet PO (10:02)
[2019-06-09] MEDS: Spironolactone 25 MG Tablet PO (10:02)
[2019-06-09] MEDS: Loratadine 10 MG Tablet PO (10:02)
[2019-06-09] MEDS: Polyethylene Glycol 3350 17 GM PACKET PO (10:03)
[2019-06-09] MEDS: metOLazone 5 MG Tablet PO (10:06)
--- NOTE | 2019-06-09 10:29 | PN_ITS ---
Patient Problems: Active and Suspected Problems Sepsis (Acute) Urinary tract infection (Acute) Subjective: Feels good. Ready to go home. Vitals/I&O's: Vital Signs Temp Pulse Resp BP Pulse Ox 36.7 C 84 18 118/60 95 06/09/19 09:50 06/09/19 10:01 06/09/19 09:50 06/09/19 10:01 06/09/19 09:50 Oxygen Flow Rate (L/min) 2 Oxygen Delivery Method Nasal Cannula Weight: 105.8 kg Body Mass Index (BMI) 40.7 Intake and Output for Last 24 Hours 06/07/19 06/08/19 06/09/19 23:59 23:59 23:59 Intake Total 1693 / 1693 187 / 187 636 / 636 Output Total 1999 / 1999 1500 / 1500 1000 / 1000 Balance -307 / -307 -1313 / -1313 -364 / -364 General: Alert, No apparent distress HEENT: Atraumatic, Normocephalic Oral: Moist Mucosa, No Gingival or Mucosal Lesions/ Ulcerations Psych/Mental Status: Normal Affect, Appropriate Microbiology Past 72 Hours 06/07/19 08:32 Blood Culture (Wb) - Right Hand Blood Culture - Preliminary No growth in 48 hours. 06/07/19 08:28 Blood Culture (Wb) - Left Hand Blood Culture - Preliminary No growth in 48 hours. 06/04/19 21:15 Blood Culture (Wb) - Anticubital Left Blood Culture - Final Escherichia coli 06/05/19 00:55 Urine Catheter - Catheter Urine Culture - Final Presumptive E. coli 06/04/19 21:17 Blood Culture (Wb) #2 - Right Hand Blood Culture - Final GNR lactose banana carrier Laboratory Results 06/08/19 11:53: POC Glucose 229 H 06/08/19 15:45: POC Glucose 180 H 06/08/19 21:08: POC Glucose 342 H 06/09/19 06:10: Sodium 136, Potassium 3.7, Chloride 99, Carbon Dioxide 29.0, Anion Gap 8, BUN 23 H, Creatinine 1.04 H, Estim Creat Clear Calc 36.88, Est GFR (MDRD) Af Amer 66, Est GFR (MDRD) Non-Af 54 L, BUN/Creatinine Ratio 22.1 H, Glucose 169 H, Calcium 8.8 06/09/19 07:46: POC Glucose 157 H Current Medications Acetaminophen (Tylenol) 650 mg PO Q6H PRN PRN PRN Reason: Mild Pain (1-3)/Temp > 100.7 F Last Admin: 06/08/19 00:27 Dose: 650 mg Documented by: Albuterol Sulfate (Ventolin Aerosols) 2.5 mg INHALATION Q2H PRN PRN PRN Reason: SOB/WHEEZING Albuterol/Ipratropium (Duoneb) 3 ml INHALATION Q4HWA.RT [facility] Last Admin: 06/09/19 07:06 Dose: 3 ml Documented by: Allopurinol (Zyloprim) 100 mg PO DAILYCM [facility] Last Admin: 06/09/19 08:35 Dose: 100 mg Documented by: Aspirin (Aspirin, Baby) 81 mg PO DAILY@0800 [facility] Last Admin: 06/09/19 08:35 Dose: 81 mg Documented by: Atorvastatin Calcium (Lipitor) 10 mg PO DAILY@2200 [facility] Last Admin: 06/08/19 21:09 Dose: 10 mg Documented by: Bisacodyl (Dulcolax) 5 mg PO DAILY PRN PRN PRN Reason: Constipation Budesonide (Pulmicort Aerosol) 0.5 mg INHALATION BID.RT [facility] Stop: 06/09/19 13:31 Last Admin: 06/09/19 07:06 Dose: 0.5 mg Documented by: Colchicine (Colchicine) 0.6 mg PO DAILY PRN PRN Reason: MILD-MOD PAIN (1-5/10) Last Admin: 06/08/19 06:17 Dose: 0.6 mg Documented by: Dextrose (D50w Syringe) 0 gm IV X1 PRN; Protocol PRN Reason: Hypoglycemia Enoxaparin Sodium (Lovenox) 30 mg SC DAILY@1000 [facility] Last Admin: 06/08/19 08:48 Dose: 30 mg Documented by: Fluoxetine HCl (Prozac) 40 mg PO DAILY [facility] Last Admin: 06/09/19 10:01 Dose: 40 mg Documented by: Folic Acid (Folic Acid) [facility] Last Admin: 06/09/19 08:35 Dose: 1 mg Documented by: Furosemide (Lasix) 40 mg PO DAILY [facility] Last Admin: 06/09/19 10:01 Dose: 40 mg Documented by: Glucagon () 1 mg IM .X1 PRN PRN Reason: Hypoglycemia Meropenem 1 gm/ Sodium (Chloride) 120 mls @ 33 mls/hr IV Q12 [facility] Last Admin: 06/09/19 10:00 Dose: 33 mls/hr Documented by: Insulin Human Lispro (Humalog Kwikpen (Bkc)) 0 unit SC ACHS [facility]; Protocol Last Admin: 06/09/19 08:34 Dose: 2 u Documented by: Insulin Human Lispro (Humalog Kwikpen (Bkc)) 10 unit SC QHS [facility] Last Admin: 06/08/19 21:10 Dose: 10 u Documented by: Insulin Human Lispro (Humalog Kwikpen (Bkc)) 16 unit SC BREAKFAST [facility] Last Admin: 06/09/19 08:34 Dose: 16 u Documented by: Insulin Human NPH (Humulin N (Bkc)) 24 units SC QHS [facility] Last Admin: 06/08/19 21:11 Dose: 24 u Documented by: Insulin Human NPH (Humulin N (Bkc)) 26 units SC BREAKFAST [facility] Last Admin: 06/09/19 08:35 Dose: 26 units Documented by: Isosorbide Mononitrate (Imdur) 30 mg PO BID [facility] Last Admin: 06/09/19 10:02 Dose: 30 mg Documented by: Levothyroxine Sodium (Synthroid) 75 mcg PO DAILY@0600 [facility] Last Admin: 06/09/19 05:18 Dose: 75 mcg Documented by: Loratadine (Claritin) 10 mg PO DAILY [facility] Last Admin: 06/09/19 10:02 Dose: 10 mg Documented by: Meclizine HCl (Antivert) 12.5 mg PO DAILY PRN PRN PRN Reason: DIZZINESS Methylcellulose (Citrucel) 2 gm PO DAILY [facility] Last Admin: 06/09/19 10:02 Dose: 2 gm Documented by: Metolazone (Zaroxolyn) 5 mg PO DAILY [facility] Last Admin: 06/09/19 10:06 Dose: 5 mg Documented by: Metoprolol Succinate (Toprol Xl (Beta Dom)) 25 mg PO DAILY [facility] Last Admin: 06/09/19 10:01 Dose: 25 mg Documented by: Ondansetron HCl (Zofran) 4 mg IV Q8H PRN PRN PRN Reason: NAUSEA/VOMITING Pantoprazole Sodium (Protonix) 40 mg PO DAILY [facility] Last Admin: 06/09/19 10:01 Dose: 40 mg Documented by: Polyethylene Glycol (Miralax) 17 gm PO DAILY [facility] Last Admin: 06/09/19 10:03 Dose: 17 gm Documented by: Sodium Chloride () 10 - 40 ml IV UD PRN PRN Reason: SALINE FLUSH Last Admin: 06/08/19 08:47 Dose: 10 ml Documented by: Spironolactone (Aldactone) 25 mg PO DAILY [facility] Last Admin: 06/09/19 10:02 Dose: 25 mg Documented by: Medical Necessity - Tobacco Use Smoking Status: Never smoker Assessment/Plan All Active Problems Bacteremia (Acute) Sepsis (Acute) Urinary tract infection (Acute) 1. Sepsis: * POA * 2/2 bacteremia and UTI * improved 2. UTI * ESBL E coli * change to meropenem on 06/07 (from CTX) * DW Dr. Curran, continue meropenem for now, may use IM Ertapenem as outpt. 3. Bacteremia: * 2/2 UTI * repeat BCx performed on 06/07 are negative at 48h * echo showed no obvious vegetation 4. Cardiomyopathy * EF 35-40%, down from 50% in 2013 * continue furosemide, spironolactone, metolazone * hold RITA- given (though, TTE was unable determine severity) * follow up with cardiology as outpt. 5. DM2 uncontrolled * resume NPH and prandial 6. VTE prophylaxis: moderate risk. enoxaparin. Code Visit Inpatient E&M: 02597 Subs Hosp L2
[2019-06-09] MEDS: Enoxaparin 30 MG/0.3 ML Syringe SC (11:52)
[2019-06-09 12:10] LABS: Bedside Glucose 151 mg/dL (70-110)
--- NOTE | 2019-06-09 12:24 | DCINST_ITS ---
- Discharge Diagnoses Current Active Problems: Current Active and Chronic Problems Sepsis (Acute) Urinary tract infection (Acute) You will use the following diet at home:: Calorie/Carbohydrate Controlled (specify 1200, 1400, etc) - 1800 Your food should be the consistency of: Regular Your liquids should be the consistency of: Regular/Thin Call your doctor if you observe: Fever of 101 or Higher, Shortness of breath Allergies/Adverse Reactions: Allergies No Known Allergies Allergy (Verified 06/04/19 20:36) Medications to take at Discharge Albuterol Aerosols [Ventolin Aerosols] 2.5 mg INHALATION Q4HWA.RT PRN 06/05/19 Allopurinol 100 mg PO DAILY 06/05/19 Aspirin [Aspirin, Baby] 81 mg PO DAILY@0800 06/05/19 Colchicine 0.6 mg PO PRN PRN 06/05/19 Fluoxetine HCl [Prozac] 40 mg PO DAILY 06/05/19 Folic Acid 1 mg PO DAILY 06/05/19 Furosemide [Lasix] 40 mg PO DAILY 06/05/19 Insulin NPH Human Isophane [Humulin N] 24 units SUBCUT QHS 06/05/19 Insulin NPH Human Isophane [Humulin N] 26 units SUBCUT BREAKFAST 06/05/19 Insulin Regular, Human [Humulin R] 10 units SUBCUT QHS 06/05/19 Insulin Regular, Human [Humulin R] 16 units SUBCUT BREAKFAST 06/05/19 Isosorbide Mononitrate [Imdur] 60 mg PO BID 06/05/19 Levothyroxine [Synthroid] 75 mcg PO DAILY 06/05/19 Loratadine 10 mg PO DAILY 06/05/19 Meclizine HCl [Antivert] 12.5 mg PO DAILY PRN PRN 06/05/19 Methylcellulose (with Sugar) [Citrucel Powder] 850 gm PO DAILY 06/05/19 Metolazone [Zaroxolyn] 5 mg PO DAILY 06/05/19 Metoprolol Succinate [Toprol Xl] 25 mg PO DAILY 06/05/19 Nitroglycerin (INPATIENT USE) [Nitrostat] 0.4 mg SUBLINGUAL Q5M PRN 06/05/19 Omeprazole 40 mg PO DAILY 06/05/19 Polyethylene Glycol 3350 [Miralax] 17 gm PO DAILY 06/05/19 Potassium Chloride 20 meq PO BID 06/05/19 Simvastatin 20 mg PO QHS 06/05/19 Spironolactone 25 mg PO DAILY 06/05/19 Ertapenem Sodium [Ertapenem] 1 gm IM DAILY #7 vial 06/09/19 Lidocaine 1% [Xylocaine-MPF SF 1%] 2 ml INFILTRATION DAILY #14 vial 06/09/19 [place], Disposable [Easy Touch Hypodermic Needle] 1 ea MC DAILY #10 dis.needle 06/09/19 Syringe, Disposable, 5 ml [Bulk Syringe] 1 ea MC DAILY #10 disp.syrin 06/09/19 The following prescriptions were given: Syringe, Disposable, 5 ml [Bulk Syringe] 1 ea MC DAILY #10 disp.syrin Prescription Printed [place], Disposable [Easy Touch Hypodermic Needle] 1 ea MC DAILY #10 dis.needle Prescription Printed Ertapenem Sodium [Ertapenem] 1 gm IM DAILY #7 vial Prescription Printed Lidocaine 1% [Xylocaine-MPF SF 1%] 2 ml INFILTRATION DAILY #14 vial Prescription Printed Primary Care Physician: Rommel Arango MD [Primary Care Provider] - Within 1 Week Test Results: Test results from this visit will be discussed in further detail at your follow- up appointment, if applicable. Proposed Discharge Date: 06/09/19
--- NOTE | 2019-06-09 12:25 | DS.PCM_ITS ---
Discharge Date and Diagnosis - Problem List Patient Problems: Active and Suspected Problems Sepsis (Acute) Urinary tract infection (Acute) Date of Admission: 06/05/19 Date of Discharge: 06/09/19 - Primary Discharge Diagnosis Active and Suspected Problems Sepsis (Acute) Urinary tract infection (Acute) 1. Sepsis: * POA * 2/2 bacteremia and UTI * improved 2. UTI * ESBL E coli * change to meropenem on 06/07 (from CTX) * JUMANA Curran, ertapenem IM for 7 more days. 3. Bacteremia: * 2/2 UTI * repeat BCx performed on 06/07 are negative at 48h * echo showed no obvious vegetation 4. Cardiomyopathy * EF 35-40%, down from 50% in 2013 * continue furosemide, spironolactone, metolazone * hold RITA- given (though, TTE was unable determine severity) * follow up with cardiology as outpt. 5. DM2 uncontrolled * resume NPH and prandial - Secondary Discharge Diagnosis Chronic Problems Morbid obesity (Chronic) Chronic respiratory failure (Chronic) Essential hypertension (Chronic) Type II diabetes mellitus (Chronic) CAD (coronary artery disease) (Chronic) Hospital Course and Treatment Imaging Results: Clinical Impression(s) from Imaging Studies Chest X-Ray 06/04/19 21:25 IMPRESSION: Chronic interstitial lung changes without superimposed acute alveolar disease. 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 Findings are most consistent with mild pulmonary interstitial edema. No visualized pulmonary embolism. Moderate cardiomegaly. Status post sternotomy. Mild cardiomegaly coronary artery disease. Electronically Signed: Veronica Mantilla MD at 0:16 EDT Tel , Service support , Renal Ultrasound 06/05/19 08:23 IMPRESSION: Right kidney is not visualized due to positioning and/or body habitus. There is no visualized hydronephrosis of the left kidney. The study is very limited. Electronically Signed: Veronica Mantilla MD at 14:23 EDT Tel , Service support , Chest X-Ray 06/06/19 13:04 IMPRESSION: Elevation of the right hemidiaphragm. Cardiomegaly. No new infiltrate is seen. Electronically Signed: Shaka Aj MD at 13:45 EDT Tel , Service support , Operations: None Procedures: None Summary of Care Provided: The patient is a 79 year old F presents with a 1 day history of chills. Patient was recently on antibiotics prior to arrival and did receive ceftriaxone. The patient presented with sepsis. Patient was found to have a urinary tract infection as well as a skin bacteremia. The organism that was found was ESBL E. coli. Patient was then initiated on meropenem and infectious disease was consulted. Repeat blood cultures were performed on the and at 48 hours, cultures have been negative. Patient will be discharged with 7 more days of IV ertapenem. Patient does have family members as well as neighbors who are in healthcare field and nurses who will be able to assist the patient in regards to the antibiotics. Patient will be on ertapenem which will need to be reconstituted with a 3.2 mL's of 1% lidocaine. [] Patient Problems: Active and Suspected Problems Sepsis (Acute) Urinary tract infection (Acute) - Physical Exam Vital Signs Temp Pulse Resp BP Pulse Ox 36.7 C 72 16 118/60 95 06/09/19 09:50 06/09/19 11:08 06/09/19 11:08 06/09/19 10:01 06/09/19 09:50 Oxygen Flow Rate (L/min) 2 Oxygen Delivery Method Nasal Cannula Weight: 105.8 kg Body Mass Index (BMI) 40.7 Intake and Output for Last 24 Hours 06/07/19 06/08/19 06/09/19 23:59 23:59 23:59 Intake Total 1693 / 1693 187 / 187 636 / 636 Output Total 1999 / 1999 1500 / 1500 1000 / 1000 Balance -307 / -307 -1313 / -1313 -364 / -364 Microbiology Past 72 Hours 06/07/19 08:32 Blood Culture - Preliminary Blood Culture (Wb) - Right Hand No growth in 48 hours. 06/07/19 08:28 Blood Culture - Preliminary Blood Culture (Wb) - Left Hand No growth in 48 hours. 06/04/19 21:15 Blood Culture - Final Blood Culture (Wb) - Anticubital Left Escherichia coli 06/05/19 00:55 Urine Culture - Final Urine Catheter - Catheter Presumptive E. coli 06/04/19 21:17 Blood Culture - Final Blood Culture (Wb) #2 - Right Hand GNR lactose brazer controlled atmospheric furnace Laboratory Tests Past 24 Hrs 06/09/19 06:10 Sodium 136 Potassium 3.7 Chloride 99 Carbon Dioxide 29.0 Anion Gap 8 BUN 23 H Creatinine 1.04 H Estim Creat Clear Calc 36.88 Est GFR (MDRD) Af Amer 66 Est GFR (MDRD) Non-Af 54 L BUN/Creatinine Ratio 22.1 H Glucose 169 H Calcium 8.8 POC Glucose 06/09/19 06/09/19 06/08/19 12:04 07:46 21:08 POC Glucose 151 H 157 H 342 H 06/08/19 15:45 POC Glucose 180 H Discharge Diet: 1800 Calorie Control Diet Call your doctor if you observe: Fever of 101 or Higher, Shortness of breath Home Medications: Medications to take at Discharge Albuterol Aerosols [Ventolin Aerosols] 2.5 mg INHALATION Q4HWA.RT PRN 06/05/19 Allopurinol 100 mg PO DAILY 06/05/19 Aspirin [Aspirin, Baby] 81 mg PO DAILY@0800 06/05/19 Colchicine 0.6 mg PO PRN PRN 06/05/19 Fluoxetine HCl [Prozac] 40 mg PO DAILY 06/05/19 Folic Acid 1 mg PO DAILY 06/05/19 Furosemide [Lasix] 40 mg PO DAILY 06/05/19 Insulin NPH Human Isophane [Humulin N] 24 units SUBCUT QHS 06/05/19 Insulin NPH Human Isophane [Humulin N] 26 units SUBCUT BREAKFAST 06/05/19 Insulin Regular, Human [Humulin R] 10 units SUBCUT QHS 06/05/19 Insulin Regular, Human [Humulin R] 16 units SUBCUT BREAKFAST 06/05/19 Isosorbide Mononitrate [Imdur] 60 mg PO BID 06/05/19 Levothyroxine [Synthroid] 75 mcg PO DAILY 06/05/19 Loratadine 10 mg PO DAILY 06/05/19 Meclizine HCl [Antivert] 12.5 mg PO DAILY PRN PRN 06/05/19 Methylcellulose (with Sugar) [Citrucel Powder] 850 gm PO DAILY 06/05/19 Metolazone [Zaroxolyn] 5 mg PO DAILY 06/05/19 Metoprolol Succinate [Toprol Xl] 25 mg PO DAILY 06/05/19 Nitroglycerin (INPATIENT USE) [Nitrostat] 0.4 mg SUBLINGUAL Q5M PRN 06/05/19 Omeprazole 40 mg PO DAILY 06/05/19 Polyethylene Glycol 3350 [Miralax] 17 gm PO DAILY 06/05/19 Potassium Chloride 20 meq PO BID 06/05/19 Simvastatin 20 mg PO QHS 06/05/19 Spironolactone 25 mg PO DAILY 06/05/19 Ertapenem Sodium [Ertapenem] 1 gm IM DAILY #7 vial 06/09/19 Lidocaine 1% [Xylocaine-MPF SF 1%] 2 ml INFILTRATION DAILY #14 vial 06/09/19 [place], Disposable [Easy Touch Hypodermic Needle] 1 ea MC DAILY #10 dis.needle 06/09/19 Syringe, Disposable, 5 ml [Bulk Syringe] 1 ea MC DAILY #10 disp.syrin 06/09/19 Following Prescrptions Were Given to Patient: Syringe, Disposable, 5 ml [Bulk Syringe] 1 ea MC DAILY #10 disp.syrin Prescription Printed [place], Disposable [Easy Touch Hypodermic Needle] 1 ea MC DAILY #10 dis.needle Prescription Printed Ertapenem Sodium [Ertapenem] 1 gm IM DAILY #7 vial Prescription Printed Lidocaine 1% [Xylocaine-MPF SF 1%] 2 ml INFILTRATION DAILY #14 vial Prescription Printed Primary Care Physician: Rommel Arango MD [Primary Care Provider] - Within 1 Week Please Follow Up With: [facility] When: 1-2 months Disposition: Home with Home Health Minutes spent on discharge:: 40 Patient Condition:: Fair Medical Necessity - Tobacco Use Smoking Status: Never smoker Meaningful Use Info Meaningful Use Diagnoses (Choose all that apply): None applicable Code Visit Inpatient E&M: 20637 Disch Hosp
--- NOTE | 2019-06-09 13:55 | CASEMGMT ---
Addendum entered by Brenda Hyatt 06/09/19 15:45: Call to [employer] to see if pt has Rx coverage on her supplement as pt/family are insisting that she does and per Laura, pt does not have Rx coverage on this plan but they do provide her with a Script saver card as a benefit to having a MCR supplement plan through them. Pt/daughter updated and question this RN EMY about f/u, consults and Kathy PAREDES is aware and into room with discharge instructions and to speak with them regarding this at this time. Pt states she does not have script saver card with her or her purse to pay for meds but daughter states she will cover them at this time. Jerome PAREDES CM Original Note: Ertapenem was sent to [facility] retail pharmacy and per Rita in the pharmacy, prior auth is needed. Call to pt's M[employer] D Rx coverage and per Meghana, pt has been prior auth'd at this time. Case# [id number]. Coverage is active 05/10/19-06/09/19Call to [facility] retail pharmacy and she states that script is going thru at this time and the co-pay for antibx, lidocaine, syringes, and needles is $322.09. Pt/daughter/granddaughter updated on all at this time, voice understanding. Pt/daughter/granddaughter voice no further questions/concerns/needs at this time. Chanda from [facility] is updated as well that pt will be leaving today and that IM med/supplies will be supplied from [facility] retail pharmacy, voices understanding. Kathy PAREDES updated on all at this time, voices understanding. Jerome PAREDES CM
--- NOTE | 2019-06-11 15:03 | CASEMGMT ---
REGGIE QUEVEDO DC PHONE CALL DC DATE: 06/09/19 DC Disposition: Home with [facility] Home Health Diagnosis on Discharge: Sepsis LACE/STRATA: 09/29 Intro role of CM to patient's daughter. Pt returned home with Ertapenem injections which daughter will be giving pt, and Home Health nurse will give on days she is working, per daughter's report. HHS has been to home, PT has seen pt and no further questions. No care improvement suggestions were given. Giselle TROTTERN RN ACM
== END 2019-06-09 16:10 | disposition home or self-care (01) | DRG 872 ==
LOC: ED 06-05 01:30 → PCU 06-05 02:29
PROVIDERS: Internal Medicine; Admitting Provider Hospitalist; Emergency Provider Emergency Medicine; Family Provider Family Medicine; PCP Family Medicine
DX: A41.51 Sepsis due to Escherichia coli [E. coli] (principal); N39.0 Urinary tract infection, site not specified; I42.9 Cardiomyopathy, unspecified; J96.11 Chronic respiratory failure with hypoxia; I13.0 Hypertensive heart and chronic kidney disease with heart failure and stage 1 through stage 4 chronic kidney disease, or unspecified chronic kidney disease; I50.40 Unspecified combined systolic (congestive) and diastolic (congestive) heart failure; Z68.41 Body mass index [BMI] 40.0-44.9, adult; B96.20 Unspecified Escherichia coli [E. coli] as the cause of diseases classified elsewhere; Z16.12 Extended spectrum beta lactamase (ESBL) resistance; E66.01 Morbid (severe) obesity due to excess calories; I25.10 Atherosclerotic heart disease of native coronary artery without angina pectoris; E11.65 Type 2 diabetes mellitus with hyperglycemia; N18.3 Chronic kidney disease, stage 3 (moderate); E11.22 Type 2 diabetes mellitus with diabetic chronic kidney disease; Z95.1 Presence of aortocoronary bypass graft; Z79.4 Long term (current) use of insulin; Z95.5 Presence of coronary angioplasty implant and graft; M10.9 Gout, unspecified; Z87.440 Personal history of urinary (tract) infections; G47.33 Obstructive sleep apnea (adult) (pediatric); Z99.81 Dependence on supplemental oxygen; Z66 Do not resuscitate; F32.9 Major depressive disorder, single episode, unspecified; K21.9 Gastro-esophageal reflux disease without esophagitis
CPT/HCPCS: 36415; 51702; 71045; 71275; 76770; 80048; 81001; 82962; 83605; 83735; 83880; 84484; 85025; 85379; 87040; 87077; 87086; 87088; 87186; 93005; 93306; 94640; 94660; 97110; 97116; 97162; 97166; 97530; 97535; 99285; J2185; J7030; J7040; J7050; Q9957; Q9967; A4216; C8929; J0696; J1940; J2405

== ENCOUNTER 2019-06-15 13:57 | Outpatient (RCR) | payer MEDICARE, OTHER, SELFPAY ==
[2019-06-05 02:42] VITALS: BMI 40.7
== END 2019-06-26 23:59 ==
LOC: LABSPEC 13:57
PROVIDERS: Family Provider Family Medicine; PCP Family Medicine; Referring Provider Internal Medicine Infectious Disease; Visit Provider Internal Medicine Infectious Disease
DX: R19.7 Diarrhea, unspecified (principal)
CPT/HCPCS: 87493

== ENCOUNTER 2019-06-29 17:36 | Inpatient (IN) | payer MEDICARE, OTHER, SELFPAY ==
[2019-06-05 02:42] VITALS: BMI 40.7
[2019-06-29] VITALS (13 sets, daily range): BP systolic 98–128; BP diastolic 47–87; PULSE 63–85; RESP 17–21; TEMP 37–37.4; O2SAT 92–100; BMI 39.8; BMI 38.7; BMI 38.8
--- NOTE | 2019-06-29 18:21 | EKG12_ITS ---
Test Reason : GI Blood Pressure : / mmHG Vent. Rate : 074 BPM Atrial Rate : 074 BPM P-R Int : 194 ms QRS Dur : 174 ms QT Int : 436 ms P-R-T Axes : 042 -44 -04 degrees QTc Int : 483 ms Sinus rhythm with frequent Premature ventricular complexes Left axis deviation Right bundle branch block Abnormal ECG Confirmed by DASHA DUARTE ([id number]), senior editor ROXANA OLIVO ([id number]) on 06/30/2019 1:36:02 PM Referred By: ALEC Confirmed By:DASHA DUARTE
--- NOTE | 2019-06-29 18:24 | ED.VIS.GEN ---
History of Present Illness Chief Complaint: Complaint Informant: Patient, Family Onset: Days Context: Gradual Onset Timing: Continuous Narrative: Patient is a 79-year-old female with history of systolic heart failure, hypertension, coronary artery disease and diabetes mellitus presenting from home with worsening lower abdominal pain and generalized malaise and fatigue. Family also states patient had a fever of 101.5 yesterday. Patient was discharged for urosepsis and bacteremia a couple weeks ago. She finished her course of IM antibiotics at home on June 16, approximately 1 week ago. Patient states that she is continued to have this lower abdominal pain since she was discharged and family states since the past few days she has seemed to worsen. She has been weak since she was discharged from the hospital. Patient was treated with meropenem for the cultures. She is complaining of associated dysuria and nausea she denies any upper abdominal pain, chest pain, shortness breath or difficulty breathing. There is been no lower extreme edema swelling or rash. Past Medical History - Allergies and Home Meds Allergies/Adverse Reactions: Allergies No Known Allergies Allergy (Verified 06/29/19 17:39) Surgical History: colectomy - With colostomy and colostomy reversal, coronary bypass surgery, - - Coronary stents Smoking Status: Never smoker - Family History Maternal Family History: Reports: - - Her mother at 96 following complications of surgery from broken hip. Paternal Family History: Reports: - - Patient do not know her paternal medical history. Review of Systems All systems negative except as indicated General: Reports: Malaise Gastrointestinal: Reports: Abdominal pain Physical Exam Vital Signs/Narrative: Vital Signs Temp Pulse Resp BP Pulse Ox 06/29/19 17:36 98.8 F 83 18 120/59 L 94 General: Well nourished, Well developed, No Acute Distress Head: Normocephalic, Atraumatic Eyes: Perrl, EOMI ENT: Moist mucous membranes, No rhinorrhea Neck: Supple, Nontender Cardiovascular: Regular rate, Regular rhythm, No murmurs Respiratory: No distress, CTA bilaterally, Chest nontender Abdomen: Soft, - - Mild suprapubic tenderness on exam Back: Nontender, Normal Inspection. Negative for: CVA tenderness Extremities: Nontender, No edema Skin: Normal color, No rash Neurological: Alert, Oriented x3, Cranial nerves II-XII grossly intact, Normal Strength, Normal Sensation Psychological: Normal affect, Normal Mood Diagnostic/Tx/Re-eval Chest X-Ray - ED: Read by ED Physician, Read by Radiologist, No Acute Disease Clinical Impression(s) from Imaging Studies Chest X-Ray 06/29/19 18:35 IMPRESSION: No acute cardiopulmonary process. Electronically Signed: Danitza Larson MD at 19:00 EDT Tel , Service support , Laboratory Data 06/29/19 06/29/19 06/29/19 17:50 17:50 17:50 WBC 9.6 RBC 4.61 Hgb 14.0 Hct 42.2 MCV 91.5 MCH 30.4 MCHC 33.2 RDW Std Deviation 48.8 H RDW Coeff of Oscar 14.7 H Plt Count 193 MPV 11.9 Immature Gran % (Auto) 0.400 Neut % (Auto) 71.8 H Lymph % (Auto) 11.7 L [place] % (Auto) 12.3 H Eos % (Auto) 2.8 Baso % (Auto) 1.0 Absolute Neuts (auto) 6.9 Absolute Lymphs (auto) 1.12 Nucleated RBC % 0 PT 14.5 INR 1.2 APTT 26.9 Sodium 135 L Potassium 3.1 L Chloride 98 Carbon Dioxide 29.0 Anion Gap 8 BUN 26 H Creatinine 1.30 H Estim Creat Clear Calc 29.50 Est GFR (MDRD) Af Amer 51 L Est GFR (MDRD) Non-Af 42 L BUN/Creatinine Ratio 20.0 Glucose 85 Lactic Acid Calcium 9.0 Total Bilirubin 0.60 AST 23 ALT 23 Alkaline Phosphatase 97 Total Protein 8.1 Albumin 3.1 L Globulin 5.0 H Albumin/Globulin Ratio 0.6 L Urine Color Urine Clarity Urine pH Ur Specific [place] Urine Protein Urine Glucose (UA) Urine Ketones Urine Occult Blood Urine Nitrite Urine Bilirubin Urine Urobilinogen Ur Leukocyte Esterase Urine RBC Urine WBC Ur Squamous Epith Cells Urine Bacteria Urine Mucus 06/29/19 06/29/19 18:35 20:04 WBC RBC Hgb Hct MCV MCH MCHC RDW Std Deviation RDW Coeff of Oscar Plt Count MPV Immature Gran % (Auto) Neut % (Auto) Lymph % (Auto) [place] % (Auto) Eos % (Auto) Baso % (Auto) Absolute Neuts (auto) Absolute Lymphs (auto) Nucleated RBC % PT INR APTT Sodium Potassium Chloride Carbon Dioxide Anion Gap BUN Creatinine Estim Creat Clear Calc Est GFR (MDRD) Af Amer Est GFR (MDRD) Non-Af BUN/Creatinine Ratio Glucose Lactic Acid 1.0 Calcium Total Bilirubin AST ALT Alkaline Phosphatase Total Protein Albumin Globulin Albumin/Globulin Ratio Urine Color Yellow Urine Clarity Sl. Cloudy Urine pH 7.0 Ur Specific [place] 1.005 Urine Protein Negative Urine Glucose (UA) Normal Urine Ketones Negative Urine Occult Blood 10 H Urine Nitrite Positive H Urine Bilirubin Negative Urine Urobilinogen Normal Ur Leukocyte Esterase 100 H Urine RBC 0-5 SEEN Urine WBC 0-5 SEEN Ur Squamous Epith Cells 0 SEEN Urine Bacteria 3+ Urine Mucus 0 SEEN Diagnostic Data Chest X-Ray 06/29/19 18:35 IMPRESSION: No acute cardiopulmonary process. Electronically Signed: Danitza Larson MD at 19:00 EDT Tel , Service support , - Rhythm Strip Rhythm Strip: Sinus Rhythm Rate: 74 - EKG Initial EKG Interpretation: Sinus Rhythm, - - Left axis deviation, right bundle branch block Normal ST segments, PVC present No change compared to prior EKG on 06/04/2019 - Medical Decision Making Patient is evaluated for persistent suprapubic pain as well as 1 week of worsening malaise and fatigue. Septic work-up was obtained which is largely negative. Patient does not meet criteria for sepsis however she does have findings consistent with a urinary tract infection. Patient's prior urine culture showed ESBL. 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 Patient is agreeable to this plan. She is otherwise stable emergency room. She is found to have hypokalemia and 60 mg potassium replacement is given to the emergency room. Patient is stable to the general medical floor at time of disposition. ED Disposition - Plan for ED Patient: Disposition: Acute Care [facility] Diagnosis: Urinary tract infection, Hypokalemia
--- NOTE | 2019-06-29 18:35 | RAD_ITS ---
STUDY: X-RAY CHEST REASON FOR EXAM: Female, 79 years old. Painful urination. TECHNIQUE: Single frontal view of the chest. COMPARISON: June 06, 2019 FINDINGS: There are low lung volumes. There is no significant interval change since the prior examination. There is persistent obscuration of the left hemidiaphragm. Sternal cerclage wires are present from a prior sternotomy. The cardiac silhouette is within normal limits. Normal mediastinum and winifred. Normal visualized pulmonary arteries. Normal visualized aortic arch and descending thoracic aorta. Normal visualized thoracic spine. Normal visualized ribs, clavicles, and shoulders. There is no demonstrated abnormality of the visualized soft tissue structures of the upper abdomen. RAD/Chest 1 View (Portable) IMPRESSION: No acute cardiopulmonary process. Electronically Signed: Danitza Larson MD at 19:00 EDT Tel , Service support ,
[2019-06-29 18:55] LABS: Absolute Lymphocyte Count 1.12 X10^3/uL (0.83-4.51); Absolute Neutrophil Count 6.9 X10^3/uL (2.0-7.7); Eosinophil# 0.27 X10^3/uL; Eosinophils% 2.8 % (0-5); Hematocrit 42.2 % (37-47); Lymphocyte # 1.12 X10^3/ul (4.0); Lymphocyte % 11.7 % (19-41); Mean Corp Hgb Conc 33.2 g/dL (32-36); Mean Corpuscular Hgb 30.4 pg (27.0-32.0); Mean Corpuscular Volume 91.5 fL (81-99); Mean Platelet Vol. 11.9 fl (6.2-12.0); Monocyte# 1.18 X10^3/uL; Monocyte% 12.3 % (0-10); NRBC Flagged by Analyzer 0 % (0-5); Neutrophil # 6.88 X10^3/uL (2.7-7.7); Neutrophil % 71.8 % (47-70); Platelet Count 193 K/mm3 (150-450); RBC Distribution Width CV 14.7 % (11.6-14.6); RBC Distribution Width SD 48.8 fl (35.1-43.9); Red Blood Count 4.61 M/mm3 (4.2-5.4); White Blood Count 9.6 K/mm3 (4.4-11.0)
[2019-06-29 19:00] LABS: International Normalized Ratio 1.2; Partial Thromboplast Time 26.9 Seconds (24.1-36.2); Prothrombin Time (Protime)PT. 14.5 SECONDS (11.7-14.9)
[2019-06-29 19:09] LABS: ALB/GLOB Ratio 0.6 RATIO (0.9-2.4); AST(SGOT) 23 U/L (15-37); Alanine Aminotransfer ALT/SGPT 23 U/L (13-56); Albumin, Serum 3.1 g/dL (3.2-5.0); Alkaline Phosphatase 97 U/L (45-117); Anion Gap 8 (5-15); BUN 26 mg/dL (7-18); Chloride 98 mmol/L (98-107); EST Glomerular Filtration Rate 42 mL/min (>60); Est Glom Filt Rate - Afr Amer 51 mL/min (>60); Glucose 85 mg/dL (74-106); Potassium 3.1 mmol/L (3.5-5.1); Protein, Total 8.1 g/dL (6.4-8.2); Sodium Level 135 mmol/L (136-145)
[2019-06-29 20:11] LABS: Mucous, Urine 0 SEEN /hpf (<or=2+); Squamous Epithelial Cells - UA 0 SEEN /hpf (5-10)
[2019-06-29 20:16] LABS: Color, Urine Yellow (Yellow); Glucose, Dipstick Normal (Normal); Ketone-Dipstick Negative (Negative); Leukocyte Esterase-Dipstick 100 /ul (Negative); Nitrite-Dipstick Positive (Negative); Occult Blood-Urine 10 /ul (Negative); Protein-Dipstick Negative (Negative); Specific Gravity, Urine 1.005 (1.002-1.030); Urine Bilirubin Dipstick Negative (Negative); Urine Clarity Sl. Cloudy (Clear); Urine Urobilinogen Normal (Normal)
[2019-06-29 20:25] LABS: Bacteria 3+ /hpf (None Seen); White Blood Cells 0-5 SEEN /hpf (0-5)
[2019-06-29 20:26] LABS: Red Blood Cells-Urine 0-5 SEEN /hpf (0-5)
--- NOTE | 2019-06-29 21:45 | HP.PCM_ITS ---
Problem List (1) Urinary tract infection Status: Acute (2) Morbid obesity Status: Chronic (3) Essential hypertension Status: Chronic (4) Type II diabetes mellitus Status: Chronic (5) CAD (coronary artery disease) Status: Chronic (6) Sepsis Status: Inactive (7) Bacteremia Status: Inactive History of Present Illness Date of Admission: 06/29/19 Chief Complaint: Altered mental status The patient is a 79 year old F with a significant history of hypertension; diabetes mellitus; congestive heart failure; CAD status post CABG and stent; and former smoker who presented to emergency department with altered mental status that started on the day of presentation. Per family patient was having hallucinating and she was staring. Patient reports fatigue; weakness and a fever of 101 at home. She has lower a bdominal pain and dysuria. Further she has burning with urination; increased frequency of urination; and malodorous urine. Of note patient was admitted on 06/05/2019 and discharged on 06/09/2019 with sepsis secondary to UTI. Reportedly her urinary symptoms did not jose david after discharge. On this presentation her urinalysis was found to be positive. Past Medical History Past Medical History (Chronic Problems): Chronic Problems Morbid obesity (Chronic) Chronic respiratory failure (Chronic) Essential hypertension (Chronic) Type II diabetes mellitus (Chronic) CAD (coronary artery disease) (Chronic) Allergies No Known Allergies Allergy (Verified 06/29/19 17:39) Home Medications: Ambulatory Orders Medication Instructions Recorded Albuterol Aerosols [Ventolin 2.5 mg INHALATION Q4HWA.RT PRN 06/05/19 Aerosols] Allopurinol 100 mg PO DAILY 06/05/19 Aspirin [Aspirin, Baby] 81 mg PO DAILY@0800 06/05/19 Colchicine 0.6 mg PO PRN PRN 06/05/19 Fluoxetine HCl [Prozac] 40 mg PO DAILY 06/05/19 Folic Acid 1 mg PO DAILY 06/05/19 Furosemide [Lasix] 40 mg PO DAILY 06/05/19 Insulin NPH Human Isophane 24 units SUBCUT QHS 06/05/19 [Humulin N] Insulin NPH Human Isophane 26 units SUBCUT BREAKFAST 06/05/19 [Humulin N] Insulin Regular, Human [Humulin R] 10 units SUBCUT QHS 06/05/19 Insulin Regular, Human [Humulin R] 16 units SUBCUT BREAKFAST 06/05/19 Isosorbide Mononitrate [Imdur] 60 mg PO BID 06/05/19 Levothyroxine [Synthroid] 75 mcg PO DAILY 06/05/19 Loratadine 10 mg PO DAILY 06/05/19 Meclizine HCl [Antivert] 12.5 mg PO DAILY PRN PRN 06/05/19 Metolazone [Zaroxolyn] 5 mg PO DAILY 06/05/19 Metoprolol Succinate [Toprol Xl] 25 mg PO DAILY 06/05/19 Nitroglycerin (INPATIENT USE) 0.4 mg SUBLINGUAL Q5M PRN 06/05/19 [Nitrostat] Omeprazole 40 mg PO DAILY 06/05/19 Polyethylene Glycol 3350 [Miralax] 17 gm PO DAILY 06/05/19 Potassium Chloride 20 meq PO BID 06/05/19 Simvastatin 20 mg PO QHS 06/05/19 Spironolactone 25 mg PO DAILY 06/05/19 [place], Disposable [Easy Touch 1 ea DAILY #10 dis.needle 06/09/19 Hypodermic Needle] Syringe, Disposable, 5 ml [Bulk 1 ea DAILY #10 disp.syrin 06/09/19 Syringe] Methylcellulose [Citrucel] 850 gm PO DAILY 06/29/19 Surgical History: colectomy - With colostomy and colostomy reversal, coronary bypass surgery, - - Coronary stents; 2 knee operations Lives: Alone Smoking Status: Former smoker Alcohol: None - *Family History Maternal History Items: Heart Disease, - - Her mother at 96 following complications of surgery from broken hip. Paternal History Items: - - Patient do not know her paternal medical history. Review of Systems Constitutional: Reports: Fever, Weakness, Fatigue. Denies: Weight Change HEENT: Denies: Head Aches, Sinus Congestion, Sinus Drainage Cardiovascular: Denies: Chest Pain, Palpitations Respiratory: Denies: Cough, Shortness of breath at rest, Sputum production Gastrointestinal: Reports: Abdominal Pain - Lower. Denies: Nausea, Vomiting Genitourinary: Reports: Dysuria, Frequency, Incontinence Musculoskeletal: Denies: Joint Pain, Joint Tenderness Skin: Denies: Rash, Wounds Neurological: Denies: Numbness, Tingling, Focal weakness Psychiatric: Denies: Anxiety, Depression, Homicidal Ideations, Suicidal Ideations Hematologic/ Lymphatic: Denies: Easy Bruising, Easy Bleeding VTE Information - Inpt Only VTE Present on Admission: No VTE Mechan Device Prophylaxis: None VTE Pharm Prophylaxis ordered?: Yes Patient Problems: Active and Suspected Problems Hypokalemia (Acute) Urinary tract infection (Acute) - Physical Exam General: Alert, Oriented x3, Cooperative HEENT: Atraumatic, PERRLA, EOMI, Normocephalic Neck: Supple, No JVD, Negative Carotid Bruits Lungs: Clear to auscultation, Normal air movement Cardiovascular: Regular rate, No murmurs Abdomen: Bowel Sounds Present, Soft, Non Tender, Tender - Left costovertebral angle tenderness Extremities: No edema, Capillary Refill Less than 3 Seconds Skin: No rashes, No breakdown Musculoskeletal: No Tenderness to Palpation of Joints or Extremities Neurological: Cranial nerves II-XII grossly intact Psych/Mental Status: Normal Affect, Appropriate Vital Signs Temp Pulse Resp BP Pulse Ox 98.6 F 69 21 H 121/49 H 95 06/29/19 21:00 06/29/19 21:00 06/29/19 21:00 06/29/19 21:00 06/29/19 21:00 Oxygen Delivery Method Room Air Weight: 102.058 kg Body Mass Index (BMI) 39.8 Laboratory Tests Past 24 Hrs 06/29/19 06/29/19 06/29/19 17:50 17:50 17:50 WBC 9.6 RBC 4.61 Hgb 14.0 Hct 42.2 MCV 91.5 MCH 30.4 MCHC 33.2 RDW Std Deviation 48.8 H RDW Coeff of Oscar 14.7 H Plt Count 193 MPV 11.9 Immature Gran % (Auto) 0.400 Neut % (Auto) 71.8 H Lymph % (Auto) 11.7 L [place] % (Auto) 12.3 H Eos % (Auto) 2.8 Baso % (Auto) 1.0 Absolute Neuts (auto) 6.9 Absolute Lymphs (auto) 1.12 Nucleated RBC % 0 PT 14.5 INR 1.2 APTT 26.9 Sodium 135 L Potassium 3.1 L Chloride 98 Carbon Dioxide 29.0 Anion Gap 8 BUN 26 H Creatinine 1.30 H Estim Creat Clear Calc 29.50 Est GFR (MDRD) Af Amer 51 L Est GFR (MDRD) Non-Af 42 L BUN/Creatinine Ratio 20.0 Glucose 85 Lactic Acid Calcium 9.0 Total Bilirubin 0.60 AST 23 ALT 23 Alkaline Phosphatase 97 Total Protein 8.1 Albumin 3.1 L Globulin 5.0 H Albumin/Globulin Ratio 0.6 L Urine Color Urine Clarity Urine pH Ur Specific [place] Urine Protein Urine Glucose (UA) Urine Ketones Urine Occult Blood Urine Nitrite Urine Bilirubin Urine Urobilinogen Ur Leukocyte Esterase Urine RBC Urine WBC Ur Squamous Epith Cells Urine Bacteria Urine Mucus 06/29/19 06/29/19 18:35 20:04 WBC RBC Hgb Hct MCV MCH MCHC RDW Std Deviation RDW Coeff of Oscar Plt Count MPV Immature Gran % (Auto) Neut % (Auto) Lymph % (Auto) [place] % (Auto) Eos % (Auto) Baso % (Auto) Absolute Neuts (auto) Absolute Lymphs (auto) Nucleated RBC % PT INR APTT Sodium Potassium Chloride Carbon Dioxide Anion Gap BUN Creatinine Estim Creat Clear Calc Est GFR (MDRD) Af Amer Est GFR (MDRD) Non-Af BUN/Creatinine Ratio Glucose Lactic Acid 1.0 Calcium Total Bilirubin AST ALT Alkaline Phosphatase Total Protein Albumin Globulin Albumin/Globulin Ratio Urine Color Yellow Urine Clarity Sl. Cloudy Urine pH 7.0 Ur Specific [place] 1.005 Urine Protein Negative Urine Glucose (UA) Normal Urine Ketones Negative Urine Occult Blood 10 H Urine Nitrite Positive H Urine Bilirubin Negative Urine Urobilinogen Normal Ur Leukocyte Esterase 100 H Urine RBC 0-5 SEEN Urine WBC 0-5 SEEN Ur Squamous Epith Cells 0 SEEN Urine Bacteria 3+ Urine Mucus 0 SEEN Assessment/Plan All Active Problems Hypokalemia (Acute) Urinary tract infection (Acute) The patient is a 79 year old F with a significant history of hypertension; diabetes mellitus; congestive heart failure; CAD status post CABG and stent; and former smoker who presented to emergency department with altered mental status; fatigue; weakness and abnormal urinalysis in the setting of previous ESBL E. coli. Acute UTI Abnormal urinalysis on presentation and with urinary symptoms as well as altered mental status. On previous admission patient had ESBL E. coli. Sensitivities show that it was sensitive to Zosyn. Initially agreed with emergency department doctor to start patient on Zosyn. Upon review of EMR it was noted that patient was on Merrem on previous admission. On previous admission the case was discussed with Dr. Curran, infectious disease specialist who recommended 7 days of ertapenem IM after antibiotics had been changed to meropenem.. Will start patient on ertapenem IV. Follow urine culture. Acute encephalopathy Likely secondary to UTI Resolved Diabetes mellitus On presentation her blood glucose was 85 and patient is at risk of hypoglycemia. Will hold home intermediate and prandial insulin. Accu-Chek q. CHS and 2 AM with correction scale ordered. Hypokalemia Presentation her potassium was 3.1. At home patient takes potassium chloride 20 mEq twice daily. Discussed with emergency department doctor to give patient potassium chloride 60 mEq x 1 at the ED. Will escalate home regimen to 40 mEq twice daily. Trend BMP. Of note patient is on home potassium depleting diuretics and spironolactone. Congestive heart failure Home diuretics continued. Potassium supplementation as above. CAD status post CABG and stenting Aspirin continued Metoprolol continued Imdur continued HTN On presentation her blood pressure was within goal Home diuretics continued Metoprolol continued Spironolactone continued Imdur continue Trend blood pressure and adjust blood pressure medications. DVT Prophylaxis Subcutaneous Lovenox ordered Code Visit Inpatient E&M: 24562 Init Hosp L3
--- NOTE | 2019-06-29 23:35 | NURSING ---
Talked to pt's daughter on the phone regarding some of pt's meds. The daughter has been in the hospital so she has not been able to directly oversee the pt's medications. She thinks that she probably had her morning meds but not her second dose of BID meds or hs meds but is not sure. Therefore last doses cannot be entered since no one is positively sure when/if the meds were given.
[2019-06-30 02:15] VITALS: BP 114/57; PULSE 69; RESP 18; TEMP 36.8; O2SAT 92
[2019-06-30 03:24] LABS: Bedside Glucose 121 mg/dL (70-110)
[2019-06-30] MEDS: Levothyroxine 75 MCG Tablet PO (06:46)
[2019-06-30 07:01] LABS: Bedside Glucose 144 mg/dL (70-110)
[2019-06-30 07:03] LABS: Anion Gap 5 (5-15); BUN 25 mg/dL (7-18); BUN/Creat Ratio 19.2 RATIO (10-20); Calcium,Total 8.8 mg/dL (8.5-10.1); Chloride 103 mmol/L (98-107); EST Glomerular Filtration Rate 42 mL/min (>60); Est Glom Filt Rate - Afr Amer 51 mL/min (>60); Glucose 164 mg/dL (74-106); Potassium 3.5 mmol/L (3.5-5.1); Sodium Level 136 mmol/L (136-145)
--- NOTE | 2019-06-30 08:19 | PN_ITS ---
Patient Problems: Active and Suspected Problems Hypokalemia (Acute) Urinary tract infection (Acute) Subjective: Patient was seen and examined. She feels much improved. Denied any fever or chills. Still has lower abdominal discomfort denies any dysuria frequency or urgency. Objective: Physical Exam General: Alert, Oriented x3, Cooperative, not pale, not jaundiced, obese HEENT: Atraumatic, PERRLA, EOMI, Normocephalic Neck: Supple, No JVD, Negative Carotid Bruits Lungs: Clear to auscultation, Normal air movement Cardiovascular: Regular rate, No murmurs Abdomen: Bowel Sounds Present, Soft, Non Tender, Tender - Left costovertebral angle tenderness Extremities: No edema, Capillary Refill Less than 3 Seconds Skin: No rashes, No breakdown Musculoskeletal: No Tenderness to Palpation of Joints or Extremities Neurological: Cranial nerves II-XII grossly intact Psych/Mental Status: Normal Affect, Appropriate Vitals/I&O's: Vital Signs Temp Pulse Resp BP Pulse Ox 98.2 F 69 18 114/57 L 92 06/30/19 02:15 06/30/19 02:15 06/30/19 02:15 06/30/19 02:15 06/30/19 02:15 Oxygen Flow Rate (L/min) 2 Oxygen Delivery Method Nasal Cannula Weight: 100.9 kg Body Mass Index (BMI) 38.7 Intake and Output for Last 24 Hours 06/28/19 06/29/19 06/30/19 23:59 23:59 23:59 Intake Total 310 / 310 Balance 310 / 310 Laboratory Results 06/29/19 17:50: WBC 9.6, RBC 4.61, Hgb 14.0, Hct 42.2, MCV 91.5, MCH 30.4, MCHC 33.2, RDW Std Deviation 48.8 H, RDW Coeff of Oscar 14.7 H, Plt Count 193, MPV 11.9, Immature Gran % (Auto) 0.400, Neut % (Auto) 71.8 H, Lymph % (Auto) 11.7 L, [place] % (Auto) 12.3 H, Eos % (Auto) 2.8, Baso % (Auto) 1.0, Absolute Neuts (auto) 6.9, Absolute Lymphs (auto) 1.12, Nucleated RBC % 0 06/29/19 17:50: PT 14.5, INR 1.2, APTT 26.9 06/29/19 17:50: Sodium 135 L, Potassium 3.1 L, Chloride 98, Carbon Dioxide 29.0, Anion Gap 8, BUN 26 H, Creatinine 1.30 H, Estim Creat Clear Calc 29.50, Est GFR (MDRD) Af Amer 51 L, Est GFR (MDRD) Non-Af 42 L, BUN/Creatinine Ratio 20.0, Glucose 85, Calcium 9.0, Total Bilirubin 0.60, AST 23, ALT 23, Alkaline Phosphatase 97, Total Protein 8.1, Albumin 3.1 L, Globulin 5.0 H, Albumin/Globulin Ratio 0.6 L 06/29/19 18:35: Lactic Acid 1.0 06/29/19 20:04: Urine Color Yellow, Urine Clarity Sl. Cloudy, Urine pH 7.0, Ur Specific [place] 1.005, Urine Protein Negative, Urine Glucose (UA) Normal, Urine Ketones Negative, Urine Occult Blood 10 H, Urine Nitrite Positive H, Urine Bilirubin Negative, Urine Urobilinogen Normal, Ur Leukocyte Esterase 100 H, Urine RBC 0-5 SEEN, Urine WBC 0-5 SEEN, Ur Squamous Epith Cells 0 SEEN, Urine Bacteria 3+, Urine Mucus 0 SEEN 06/30/19 02:17: POC Glucose 121 H 06/30/19 05:29: Sodium 136, Potassium 3.5, Chloride 103, Carbon Dioxide 28.0, Anion Gap 5, BUN 25 H, Creatinine 1.30 H, Estim Creat Clear Calc 29.50, Est GFR (MDRD) Af Amer 51 L, Est GFR (MDRD) Non-Af 42 L, BUN/Creatinine Ratio 19.2, Glucose 164 H, Calcium 8.8 06/30/19 06:45: POC Glucose 144 H Current Medications Acetaminophen (Tylenol) 650 mg PO Q6H PRN PRN PRN Reason: Mild Pain (1-3)/Temp > 100.7 F Albuterol Sulfate (Ventolin Aerosols) 2.5 mg INHALATION Q2H PRN PRN PRN Reason: sob/wheezing Allopurinol (Zyloprim) 100 mg PO DAILY [facility] Aspirin (Aspirin, Baby) 81 mg PO DAILY@0800 [facility] Atorvastatin Calcium (Lipitor) 10 mg PO QHS AME Dextrose (D50w Syringe) 0 gm IV X1 PRN; Protocol PRN Reason: Hypoglycemia Enoxaparin Sodium (Lovenox) 30 mg SC DAILY@1000 [facility] Fluoxetine HCl (Prozac) 40 mg PO DAILY AME Folic Acid (Folic Acid) 1 mg PO DAILYCM [facility] Furosemide (Lasix) 40 mg PO DAILY AME Glucagon () 1 mg IM .X1 PRN PRN Reason: Hypoglycemia Ertapenem 1 gm/ Sodium (Chloride) 60 mls @ 100 mls/hr IV QHS [facility] Last Infusion: 06/30/19 04:40 Dose: Infused Documented by: Insulin Human Lispro (Humalog Kwikpen (Bkc)) 0 unit SC ACHS & 3AM AME; Protocol Last Admin: 06/30/19 06:46 Dose: Not Given Documented by: Isosorbide Mononitrate (Imdur) 60 mg PO BID [facility] Lactobacillus Acidophilus (Acidophilus) 1 tablet PO BID [facility] Levothyroxine Sodium (Synthroid) 75 mcg PO DAILY@0600 [facility] Last Admin: 06/30/19 06:46 Dose: 75 mcg Documented by: Loratadine (Claritin) 10 mg PO DAILY [facility] Meclizine HCl (Antivert) 12.5 mg PO DAILY PRN PRN PRN Reason: DIZZINESS Metolazone (Zaroxolyn) 5 mg PO DAILY [facility] Metoprolol Succinate (Toprol Xl (Beta Dom)) 25 mg PO DAILY [facility] Ondansetron HCl (Zofran) 4 mg IV Q8H PRN PRN PRN Reason: NAUSEA/VOMITING Pantoprazole Sodium (Protonix) 40 mg PO DAILY [facility] Polyethylene Glycol (Miralax) 17 gm PO DAILY [facility] Potassium Chloride (K-Dur) 40 meq PO BID [facility] Spironolactone (Aldactone) 25 mg PO DAILY [facility] Medical Necessity - Tobacco Use Smoking Status: Former smoker Assessment/Plan All Active Problems Hypokalemia (Acute) Urinary tract infection (Acute) 79 year old F with PMHx of hypertension,Type 2 DM, CAD status post CABG, recently discharged with ESBL UTI on IM ertapenem, admitted with altered mental status. 1. Acute metabolic encephalopathy secondary to current ESBL E. coli, resolved, alert oriented x3 2. Probable ESBL UTI, recently discharged with same, urine cultures pending ID consulted, will continue on IV meropenem 3. Gram-positive cocci bacteremia, 1 out of 2 blood cultures, likely contaminant, ID following, continue on same IV meropenem 4. Type 2 DM, sugars are fairly controlled, continue with blood glucose checks and insulin sliding scale 5. Hypokalemia, replaced, recheck in am 6. CAD s/p CABG, stenting/CHF/hypertension, clinically stable, in acute exacerbation 7. DVT Prophylaxis - Lovenox SC 8. Disposition: Possible DC in 48-72hrs pending culture results Code Visit Inpatient E&M: 03631 Subs Hosp L2
[2019-06-30] MEDS: Folic Acid 1 MG Tablet PO (08:47)
[2019-06-30] MEDS: Aspirin 81 MG TAB.CHEW PO (08:47)
[2019-06-30 08:48] VITALS: BP 132/66; PULSE 68; RESP 18; TEMP 36.8; O2SAT 98
[2019-06-30] MEDS: Nystatin Powder 15gm Bottle 1 APPLIC TOPICAL ×2 (10:31→23:48)
[2019-06-30] MEDS: Polyethylene Glycol 3350 17 GM PACKET PO (10:31)
[2019-06-30] MEDS: Enoxaparin 30 MG/0.3 ML Syringe SC (10:31)
[2019-06-30] MEDS: FLUoxetine 20 MG Capsule 40 MG PO (10:32)
[2019-06-30] MEDS: Loratadine 10 MG Tablet PO (10:32)
[2019-06-30] MEDS: metOLazone 5 MG Tablet PO (10:32)
[2019-06-30] MEDS: Furosemide 40 MG Tablet PO (10:32)
[2019-06-30] MEDS: Pantoprazole Sodium 40 MG Tablet PO (10:32)
[2019-06-30] MEDS: Isosorbide Mononitrate 60 MG Tablet PO ×2 (10:32→23:47)
[2019-06-30 10:33] VITALS: PULSE 68
[2019-06-30] MEDS: Metoprolol(XL)Succ 25 MG Tablet PO (10:33)
[2019-06-30] MEDS: Allopurinol 100 MG Tablet PO (10:33)
[2019-06-30] MEDS: Spironolactone 25 MG Tablet PO (10:42)
--- NOTE | 2019-06-30 11:28 | CASEMGMT ---
Addendum entered by Kingsley Bustamante 06/30/19 12:06: Preferred Pharmacy: [facility] for any new meds @ d/c. 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 Discharged home w/[facility] on IM Ertapenem x 7 days. Current admission: Re-dmitted 06/29/19 with UTI. To room to talk with pt/discuss discharge planning. Introduced self and role @ [facility]. Pt sitting up in recliner chair. A/Ox3. Pt agreeable to talking with pt and all questions answered appropriately. Pt states that she had been seeing Dr Arango but states, I am not please with him and states she would like to find another PCP. Given list of local PCP's in [facility] per pt request. Pt states also has made an appt with Dr Jovel to get established as a new patient and that she has an upcoming appt with him in the next 2-3 weeks (she does not remember the date, but has that information at home). Pt states her daughter, Steff, is her HCPOA. She thinks updated HCPOA paperwork is on file @ [facility]. REGGIE QUEVEDO checked chart and e-file and no records found. Pt made aware. Family is very supportive and pt has no concerns with going home at discharge. She denies needing any further DME. Pt states she did complete the 7 days of IM atb's that she was discharged home on and that [facility] has discharged her. She states if she would need further IM or IV antibiotics @ discharge that she would like [facility] again. Pt was provided with list of local [facility] agencies. Pt states no preference of supply company for IV antibiotics if they are needed @ discharge and she is agreeable to I. CM to continue to follow. Pt made aware to ask for CM if she has any questions/concerns for discharge. Discharge Plan: Home w/family support. If IM or IV antibiotics are needed at discharge, pt wants [facility] Rupal SOLARES RN, CM
[2019-06-30] MEDS: Insulin Lispro 100 UNIT/ML INSULN.PEN SC ×3 (11:37→23:49)
[2019-06-30 11:46] LABS: Bedside Glucose 230 mg/dL (70-110)
--- NOTE | 2019-06-30 12:20 | CT_ITS ---
STUDY: CT ABDOMEN AND PELVIS WITHOUT CONTRAST REASON FOR EXAM: Female, 79 years old. Recurrent UTIs. History of diverticulitis. RADIATION DOSAGE (If Supplied By Facility): CTDIvol = ( 23.42 ) mGy, DLP = ( 1256.43 ) mGycm TECHNIQUE: Transaxial images were obtained from the dome of the diaphragm to the symphysis pubis without oral contrast, and without intravenous contrast. Sagittal and coronal images were reconstructed. Individualized dose optimization techniques were used for this CT. COMPARISON: Comparison is made with prior examination dated April 23, 2013. FINDINGS: Mild increased markings at the lung bases suggestive of scarring. Mild bibasilar bronchiectasis. Coronary artery calcification. Normal liver. There are surgical clips in the gallbladder fossa consistent with a prior cholecystectomy. Normal spleen. There is diffuse atrophy of the pancreas. Normal bilateral adrenal glands. Normal right kidney. Normal left kidney. Normal visualized stomach. Normal small intestine. There are multiple colonic diverticula consistent with diverticulosis. The appendix is visualized and appears normal. There is diffuse atherosclerotic calcification of the abdominal aorta and the major visceral branches, without a demonstrated aneurysm. Normal inferior vena cava. Normal retroperitoneum. A small amount of air is seen within the anterior aspect of the urinary bladder. This most likely secondary to Wilcox catheter insertion. Clinical correlation is recommended. A small amount of air is also seen within the endocervical canal as well as the endometrium. Calcified fibroid uterus. There is a small umbilical hernia containing fat. There are diffuse degenerative changes of the visualized lumbar spine. CT/Abdomen/Pelvis without Cont IMPRESSION: Air is seen within the uterus as well as the bladder. Clinical correlation is recommended. 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 Sigmoid diverticulosis with no radiographic evidence of diverticulitis. Electronically Signed: Joe Peters, at 13:50 EDT , Service support ,
--- NOTE | 2019-06-30 12:22 | CON.PCM_ITS ---
Problem List (1) Urinary tract infection Status: Acute Reason for Consult: uti Consulted by: Dr. Khan History of Present Illness: The patient is a 79 year old F admitted in May with ESBL ecoli uti, discharged on IM ertapenem, felt better, completed abx, now sx returned for past few days with dysuria, fatigue, lower abd pain. No fever or chills. No flank pain. Came to ED, admitted on ertapenem. Full ROS performed and neg except as noted above. - Medical History Past Medical History (Chronic Problems): Chronic Problems Morbid obesity (Chronic) Chronic respiratory failure (Chronic) Essential hypertension (Chronic) Type II diabetes mellitus (Chronic) CAD (coronary artery disease) (Chronic) Allergies/Adverse Reactions: Allergies No Known Allergies Allergy (Verified 06/29/19 17:39) Home Medications: Ambulatory Orders Medication Instructions Recorded Albuterol Aerosols [Ventolin 2.5 mg INHALATION Q4HWA.RT PRN 06/05/19 Aerosols] Allopurinol 100 mg PO DAILY 06/05/19 Aspirin [Aspirin, Baby] 81 mg PO DAILY@0800 06/05/19 Colchicine 0.6 mg PO PRN PRN 06/05/19 Fluoxetine HCl [Prozac] 40 mg PO DAILY 06/05/19 Folic Acid 1 mg PO DAILY 06/05/19 Furosemide [Lasix] 40 mg PO DAILY 06/05/19 Insulin NPH Human Isophane 24 units SUBCUT QHS 06/05/19 [Humulin N] Insulin NPH Human Isophane 26 units SUBCUT BREAKFAST 06/05/19 [Humulin N] Insulin Regular, Human [Humulin R] 10 units SUBCUT QHS 06/05/19 Insulin Regular, Human [Humulin R] 16 units SUBCUT BREAKFAST 06/05/19 Isosorbide Mononitrate [Imdur] 60 mg PO BID 06/05/19 Levothyroxine [Synthroid] 75 mcg PO DAILY 06/05/19 Loratadine 10 mg PO DAILY 06/05/19 Meclizine HCl [Antivert] 12.5 mg PO DAILY PRN PRN 06/05/19 Metolazone [Zaroxolyn] 5 mg PO DAILY 06/05/19 Metoprolol Succinate [Toprol Xl] 25 mg PO DAILY 06/05/19 Nitroglycerin (INPATIENT USE) 0.4 mg SUBLINGUAL Q5M PRN 06/05/19 [Nitrostat] Omeprazole 40 mg PO DAILY 06/05/19 Polyethylene Glycol 3350 [Miralax] 17 gm PO DAILY 06/05/19 Potassium Chloride 20 meq PO BID 06/05/19 Simvastatin 20 mg PO QHS 06/05/19 Spironolactone 25 mg PO DAILY 06/05/19 [place], Disposable [Easy Touch 1 ea DAILY #10 dis.needle 06/09/19 Hypodermic Needle] Syringe, Disposable, 5 ml [Bulk 1 [facility] DAILY #10 disp.syrin 06/09/19 Syringe] Methylcellulose [Citrucel] 850 gm PO DAILY 06/29/19 - Social History SMOKING STATUS:: Former smoker Vital Signs Temp Pulse Resp BP Pulse Ox 98.3 F 68 18 132/66 H 98 06/30/19 08:48 06/30/19 10:33 06/30/19 08:48 06/30/19 08:48 06/30/19 08:48 Oxygen Flow Rate (L/min) 2 Oxygen Delivery Method Nasal Cannula Weight: 100.9 kg Body Mass Index (BMI) 38.7 Microbiology Past 72 Hours 06/29/19 20:04 Urine Culture - Preliminary Urine Catheter - Catheter Presumptive E. coli 06/29/19 18:33 Blood Culture - Preliminary Blood Culture (Wb) - Right Hand Laboratory Tests Past 24 Hrs 06/29/19 06/29/19 06/29/19 17:50 17:50 17:50 WBC 9.6 RBC 4.61 Hgb 14.0 Hct 42.2 MCV 91.5 MCH 30.4 MCHC 33.2 RDW Std Deviation 48.8 H RDW Coeff of Oscar 14.7 H Plt Count 193 MPV 11.9 Immature Gran % (Auto) 0.400 Neut % (Auto) 71.8 H Lymph % (Auto) 11.7 L [place] % (Auto) 12.3 H Eos % (Auto) 2.8 Baso % (Auto) 1.0 Absolute Neuts (auto) 6.9 Absolute Lymphs (auto) 1.12 Nucleated RBC % 0 PT 14.5 INR 1.2 APTT 26.9 Sodium 135 L Potassium 3.1 L Chloride 98 Carbon Dioxide 29.0 Anion Gap 8 BUN 26 H Creatinine 1.30 H Estim Creat Clear Calc 29.50 Est GFR (MDRD) Af Amer 51 L Est GFR (MDRD) Non-Af 42 L BUN/Creatinine Ratio 20.0 Glucose 85 Lactic Acid Calcium 9.0 Total Bilirubin 0.60 AST 23 ALT 23 Alkaline Phosphatase 97 Total Protein 8.1 Albumin 3.1 L Globulin 5.0 H Albumin/Globulin Ratio 0.6 L Urine Color Urine Clarity Urine pH Ur Specific [place] Urine Protein Urine Glucose (UA) Urine Ketones Urine Occult Blood Urine Nitrite Urine Bilirubin Urine Urobilinogen Ur Leukocyte Esterase Urine RBC Urine WBC Ur Squamous Epith Cells Urine Bacteria Urine Mucus 06/29/19 06/29/19 06/30/19 18:35 20:04 05:29 WBC RBC Hgb Hct MCV MCH MCHC RDW Std Deviation RDW Coeff of Oscar Plt Count MPV Immature Gran % (Auto) Neut % (Auto) Lymph % (Auto) [place] % (Auto) Eos % (Auto) Baso % (Auto) Absolute Neuts (auto) Absolute Lymphs (auto) Nucleated RBC % PT INR APTT Sodium 136 Potassium 3.5 Chloride 103 Carbon Dioxide 28.0 Anion Gap 5 BUN 25 H Creatinine 1.30 H Estim Creat Clear Calc 29.50 Est GFR (MDRD) Af Amer 51 L Est GFR (MDRD) Non-Af 42 L BUN/Creatinine Ratio 19.2 Glucose 164 H Lactic Acid 1.0 Calcium 8.8 Total Bilirubin AST ALT Alkaline Phosphatase Total Protein Albumin Globulin Albumin/Globulin Ratio Urine Color Yellow Urine Clarity Sl. Cloudy Urine pH 7.0 Ur Specific [place] 1.005 Urine Protein Negative Urine Glucose (UA) Normal Urine Ketones Negative Urine Occult Blood 10 H Urine Nitrite Positive H Urine Bilirubin Negative Urine Urobilinogen Normal Ur Leukocyte Esterase 100 H Urine RBC 0-5 SEEN Urine WBC 0-5 SEEN Ur Squamous Epith Cells 0 SEEN Urine Bacteria 3+ Urine Mucus 0 SEEN - Other Studies Radiology: [] reviewed Other Studies: [] Route of nutrition/ use of supplements: [] Nutritional Intake: [] IV Site: [] Wilcox Catheter: [] - Physical Exam General: Alert, Oriented x3, Cooperative, No apparent distress HEENT: Atraumatic, PERRLA, EOMI Neck: Supple, No Nodes Lungs: Clear to auscultation, Normal air movement Cardiovascular: Regular rate, Regular Rhythm Abdomen: Soft, Non-Distended, - - mild suprapubic pain Extremities: Edema - mild BLE Skin: No rashes IV Site: Peripheral, without redness Musculoskeletal: No Tenderness to Palpation of Joints or Extremities Neurological: Cranial nerves II-XII grossly intact - Assessment/Plan Antibiotics: [] Assessment/Plan: [] Active and Suspected Problems Hypokalemia (Acute) Urinary tract infection (Acute) suspected esbl ecoli recurrent complicated uti - change erta to meropenem due to cost. Check CT abd/pelvis to look for stone or other anatomic reason for recurrent infection. Had renal u/s last admit but poor quality study. single (+) Bcx with strep-like - possible contaminant, should be covered by meropenem until identification is done. Will follow, thank you.
--- NOTE | 2019-06-30 12:22 | CASEMGMT ---
As per admitting RN, pt's POA is daughter Kala. Pt indicated the forms are on file here. SW checked paper and echart, forms are not on file. SW let pt know this, she states she will have her daughter bring in the forms for hospital to copy and place on file. MOSES Freeman
[2019-06-30 16:26] VITALS: BP 134/68; PULSE 69; RESP 18; TEMP 36.7; O2SAT 98
[2019-06-30 16:46] LABS: Bedside Glucose 219 mg/dL (70-110)
[2019-06-30 17:11] VITALS: RESP 18
[2019-06-30] MEDS: Acetaminophen 325 MG Tablet 650 MG PO (20:44)
[2019-06-30 20:50] VITALS: BP 142/52; PULSE 74; RESP 18; TEMP 36.7; O2SAT 98
[2019-06-30] MEDS: Atorvastatin Calcium 10 MG Tablet PO (23:47)
[2019-07-01] VITALS (8 sets, daily range): BP systolic 117–135; BP diastolic 60–65; PULSE 62–83; RESP 18; TEMP 36.6–36.8; O2SAT 94–99
[2019-07-01 00:11] LABS: Bedside Glucose 209 mg/dL (70-110)
[2019-07-01] MEDS: Insulin Lispro 100 UNIT/ML INSULN.PEN SC ×5 (03:52→22:07)
[2019-07-01 04:32] LABS: Bedside Glucose 216 mg/dL (70-110)
[2019-07-01 06:37] LABS: Anion Gap 7 (5-15); BUN 31 mg/dL (7-18); BUN/Creat Ratio 23.8 RATIO (10-20); Calcium,Total 8.9 mg/dL (8.5-10.1); Chloride 103 mmol/L (98-107); EST Glomerular Filtration Rate 42 mL/min (>60); Est Glom Filt Rate - Afr Amer 51 mL/min (>60); Glucose 190 mg/dL (74-106); Potassium 3.7 mmol/L (3.5-5.1); Sodium Level 139 mmol/L (136-145)
[2019-07-01] MEDS: Levothyroxine 75 MCG Tablet PO (07:00)
[2019-07-01 08:06] LABS: Bedside Glucose 185 mg/dL (70-110)
[2019-07-01] MEDS: Aspirin 81 MG TAB.CHEW PO (08:47)
[2019-07-01] MEDS: Folic Acid 1 MG Tablet PO (08:47)
[2019-07-01] MEDS: Loratadine 10 MG Tablet PO (10:15)
[2019-07-01] MEDS: Metoprolol(XL)Succ 25 MG Tablet PO (10:15)
[2019-07-01] MEDS: Pantoprazole Sodium 40 MG Tablet PO (10:15)
[2019-07-01] MEDS: FLUoxetine 20 MG Capsule 40 MG PO (10:15)
[2019-07-01] MEDS: Allopurinol 100 MG Tablet PO (10:15)
[2019-07-01] MEDS: Isosorbide Mononitrate 60 MG Tablet PO ×2 (10:15→22:08)
[2019-07-01] MEDS: Polyethylene Glycol 3350 17 GM PACKET PO (10:15)
[2019-07-01] MEDS: metOLazone 5 MG Tablet PO (10:15)
[2019-07-01] MEDS: Spironolactone 25 MG Tablet PO (10:15)
[2019-07-01] MEDS: Furosemide 40 MG Tablet PO (10:16)
[2019-07-01] MEDS: Enoxaparin 30 MG/0.3 ML Syringe SC (10:16)
[2019-07-01] MEDS: Nystatin Powder 15gm Bottle 1 APPLIC TOPICAL ×2 (10:16→22:07)
--- NOTE | 2019-07-01 10:31 | PCM.PN.ID ---
Patient Problems: Active and Suspected Problems Hypokalemia (Acute) Urinary tract infection (Acute) Subjective: Feeling better, no fever, no n/v. Denies vaginal discharge. No abd pain. - Physical Exam General: Alert, Cooperative, No apparent distress Lungs: Clear to auscultation, Normal air movement Cardiovascular: Regular rate, Regular Rhythm Abdomen: Soft, Non Tender, Non-Distended Skin: No rashes Vital Signs Temp Pulse Resp BP Pulse Ox 98.2 F 65 18 117/64 97 07/01/19 10:07/01/19 10:15 07/01/19 10:07/01/19 10:15 07/01/19 10:09 Oxygen Flow Rate (L/min) 3 Oxygen Delivery Method Nasal Cannula Weight: 100.9 kg Body Mass Index (BMI) 38.7 Intake and Output for Last 24 Hours 06/29/19 06/30/19 07/01/19 23:59 23:59 23:59 Intake Total 1660 / 2210 1010 / 1010 Output Total 400 / 400 Balance 1260 / 1810 1010 / 1010 Microbiology Past 72 Hours 06/29/19 20:04 Urine Culture - Preliminary Urine Catheter - Catheter Presumptive E. coli 06/29/19 18:33 Blood Culture - Preliminary Blood Culture (Wb) - Right Hand Laboratory Tests Past 24 Hrs 07/01/19 05:50 Sodium 139 Potassium 3.7 Chloride 103 Carbon Dioxide 29.0 Anion Gap 7 BUN 31 H Creatinine 1.30 H Estim Creat Clear Calc 29.50 Est GFR (MDRD) Af Amer 51 L Est GFR (MDRD) Non-Af 42 L BUN/Creatinine Ratio 23.8 H Glucose 190 H Calcium 8.9 POC Glucose 07/01/19 07/01/19 06/30/19 07:02 03:39 23:46 POC Glucose 185 H 216 H 209 H 06/30/19 06/30/19 16:21 11:33 POC Glucose 219 H 230 H Medical Necessity - Tobacco Use Smoking Status: Former smoker Route of nutrition/ use of supplements: [] Nutritional Intake: [] IV Site: [] Villagomez Catheter: [] - Assessment/Plan Antibiotics: [] Assessment/Plan: [] Active and Suspected Problems Hypokalemia (Acute) Urinary tract infection (Acute) suspected esbl ecoli recurrent complicated uti - changed erta to meropenem due to cost. CT shows air in bladder and uterus. No villagomez in place. Recommend urology eval for possible fistula. single (+) Bcx with strep-like - possible contaminant, should be covered by meropenem until identification is done. Will follow, d/w Dr. Khan
--- NOTE | 2019-07-01 10:36 | CON.PCM_ITS ---
Problem List (1) Urinary tract infection Status: Acute Reason for Consult Date of Consultation: 07/01/19 Reason for Consultation: recurrent urinary tract infections with ESBL ecoli, air in bladder and uterus History of Present Illness: The patient is a 79 year old F here as a second admission in the last month with bacteremia and positive urinary tract infection growing E. coli ESBL. She has a history of diverticulitis requiring a partial colectomy in the remote past. It was reconnected approximately 3 months following her procedure. She had her last colonoscopy approximately 1 year ago. She reports many years of urinary issues with urgency and incontinence as well as nocturia. She has had recent air passing through both the bladder and the vagina, denies stool in the urine. Denies blood in the stool in the urine. Does not currently have a vice president of finance or have regular examinations done. She was admitted with dysuria and abdominal pain, weakness and fatigue. She reports that currently the dysuria has resolved with the IV antibiotics. Past Medical History Past Medical History (Chronic Problems): Chronic Problems Morbid obesity (Chronic) Chronic respiratory failure (Chronic) Essential hypertension (Chronic) Type II diabetes mellitus (Chronic) CAD (coronary artery disease) (Chronic) Allergies No Known Allergies Allergy (Verified 06/29/19 17:39) Home Medications: Ambulatory Orders Medication Instructions Recorded Albuterol Aerosols [Ventolin 2.5 mg INHALATION Q4HWA.RT PRN 06/05/19 Aerosols] Allopurinol 100 mg PO DAILY 06/05/19 Aspirin [Aspirin, Baby] 81 mg PO DAILY@0800 06/05/19 Colchicine 0.6 mg PO PRN PRN 06/05/19 Fluoxetine HCl [Prozac] 40 mg PO DAILY 06/05/19 Folic Acid 1 mg PO DAILY 06/05/19 Furosemide [Lasix] 40 mg PO DAILY 06/05/19 Insulin NPH Human Isophane 24 units SUBCUT QHS 06/05/19 [Humulin N] Insulin NPH Human Isophane 26 units SUBCUT BREAKFAST 06/05/19 [Humulin N] Insulin Regular, Human [Humulin R] 10 units SUBCUT QHS 06/05/19 Insulin Regular, Human [Humulin R] 16 units SUBCUT BREAKFAST 06/05/19 Isosorbide Mononitrate [Imdur] 60 mg PO BID 06/05/19 Levothyroxine [Synthroid] 75 mcg PO DAILY 06/05/19 Loratadine 10 mg PO DAILY 06/05/19 Meclizine HCl [Antivert] 12.5 mg PO DAILY PRN PRN 06/05/19 Metolazone [Zaroxolyn] 5 mg PO DAILY 06/05/19 Metoprolol Succinate [Toprol Xl] 25 mg PO DAILY 06/05/19 Nitroglycerin (INPATIENT USE) 0.4 mg SUBLINGUAL Q5M PRN 06/05/19 [Nitrostat] Omeprazole 40 mg PO DAILY 06/05/19 Polyethylene Glycol 3350 [Miralax] 17 gm PO DAILY 06/05/19 Potassium Chloride 20 meq PO BID 06/05/19 Simvastatin 20 mg PO QHS 06/05/19 Spironolactone 25 mg PO DAILY 06/05/19 [place], Disposable [Easy Touch 1 ea [facility] DAILY #10 dis.needle 06/09/19 Hypodermic Needle] Syringe, Disposable, 5 ml [Bulk 1 ea DAILY #10 disp.syrin 06/09/19 Syringe] Methylcellulose [Citrucel] 850 gm PO DAILY 06/29/19 Surgical History: colectomy - With colostomy and colostomy reversal, coronary bypass surgery, - - Coronary stents; 2 knee operations Lives: Alone Smoking Status: Former smoker Alcohol: None - *Family History Maternal History Items: Heart Disease, - - Her mother at 96 following complications of surgery from broken hip. Paternal History Items: - - Patient do not know her paternal medical history. Review of Systems Constitutional: Reports: Weakness, Fatigue Eyes: Denies: Vision Change HEENT: Denies: Visual Changes Cardiovascular: Denies: Chest Pain Respiratory: Denies: Shortness of Breath Gastrointestinal: Reports: Abdominal Pain Genitourinary: Reports: Incontinence, Nocturia, Urgency Gynecological: Denies: Vaginal bleeding, Vaginal discharge Musculoskeletal: Denies: Muscle pain Skin: Denies: Wounds Neurological: Denies: Difficulty swallowing Patient Problems: Active and Suspected Problems Hypokalemia (Acute) Urinary tract infection (Acute) - Physical Exam General: Alert, Oriented x3, Cooperative, No apparent distress HEENT: Atraumatic, Normocephalic Oral: Moist Mucosa Neck: Trachea Midline Lungs: Normal air movement Cardiovascular: Regular rate Abdomen: Soft, Non Tender - no villagomez catheter Vital Signs Temp Pulse Resp BP Pulse Ox 98.2 F 65 18 117/64 97 07/01/19 10:09 07/01/19 10:15 07/01/19 10:09 07/01/19 10:15 07/01/19 10:09 Oxygen Flow Rate (L/min) 3 Oxygen Delivery Method Nasal Cannula Weight: 100.9 kg Body Mass Index (BMI) 38.7 Intake and Output for Last 24 Hours 06/29/19 06/30/19 07/01/19 23:59 23:59 23:59 Intake Total 1660 / 2210 1010 / 1010 Output Total 400 / 400 Balance 1260 / 1810 1010 / 1010 Microbiology Past 72 Hours 06/29/19 20:04 Urine Culture - Preliminary Urine Catheter - Catheter Presumptive E. coli 06/29/19 18:33 Blood Culture - Preliminary Blood Culture (Wb) - Right Hand Laboratory Tests Past 24 Hrs 07/01/19 05:50 Sodium 139 Potassium 3.7 Chloride 103 Carbon Dioxide 29.0 Anion Gap 7 BUN 31 H Creatinine 1.30 H Estim Creat Clear Calc 29.50 Est GFR (MDRD) Af Amer 51 L Est GFR (MDRD) Non-Af 42 L BUN/Creatinine Ratio 23.8 H Glucose 190 H Calcium 8.9 POC Glucose 07/01/19 07/01/19 06/30/19 07:02 03:39 23:46 POC Glucose 185 H 216 H 209 H 06/30/19 06/30/19 16:21 11:33 POC Glucose 219 H 230 H Assessment/Plan All Active Problems Hypokalemia (Acute) Urinary tract infection (Acute) with history of diverticulitis and partial colectomy, recurrent UTI with air in bladder and uterus recommend evaluation by general surgery and possibly drive in theater attendant as ultimately she will need evaluation for fistula I will be available as needed, will need cystoscopy at some point, not an emergency check PVR with bladder scan continue antibiotics per ID recommendations could consider estrogen cream for vagina we can address her incontinence and LUTS in the future thank you for consult
[2019-07-01 12:06] LABS: Bedside Glucose 287 mg/dL (70-110)
--- NOTE | 2019-07-01 12:36 | CT_ITS ---
STUDY: CT ABDOMEN AND PELVIS WITH CONTRAST REASON FOR EXAM: Female, 79 years old. Enteric/uterus/bladder fistula. Air noted in the uterus and bladder on prior abdomen and pelvic CT exam of June 30, 2019. RADIATION DOSAGE (If Supplied By Facility): CTDIvol = ( 18.60 ) mGy, DLP = ( 1607.94 ) mGycm TECHNIQUE: Transaxial images were obtained from the dome of the diaphragm to the symphysis pubis with oral and rectal contrast. 100 Oral/IV/Rectal Isovue 300 was administered. Sagittal and coronal images were reconstructed. Individualized dose optimization techniques were used for this CT. COMPARISON: Prior exam of June 30, 2019 FINDINGS: Stable bibasilar probably chronic lung changes. Coronary calcifications. Aortic valve calcifications. Normal liver. There are surgical clips in the gallbladder fossa consistent with a prior cholecystectomy. Normal spleen. Fatty atrophy of the pancreas. Normal bilateral adrenal glands. Normal right kidney. Normal left kidney. Food filled stomach all. Normal small intestine. Diverticulosis of the colon without evidence of acute diverticulitis. There is non-visualization of the appendix. There is diffuse atherosclerotic calcification of the abdominal aorta, without a demonstrated aneurysm. Normal inferior vena cava. There remains one air bubble in the urinary bladder and air in the endometrial space of the uterus with no contrast present in the uterus or bladder. Contrast does fill the distal colon and all of the distal small bowel. Fatty hernia of the anterior abdominal wall. There are diffuse degenerative changes of the visualized lumbar spine. CT/Abdomen/Pelvis WITH Contrast IMPRESSION: Abdomen and pelvic CT exam with oral and rectal contrast fails to demonstrate an enteric fistula to the uterus or bladder. A small amount of air remains in the endometrial space of the uterus and one bubble in the urinary bladder. Some fistula may be so small that liquid cannot pass but air can pass. Nevertheless, there is no visualized tract between the pelvic structures, stranding of the fatty tissues or tethering of the adjacent colon or small bowel. No additional acute abdominal or pelvic findings. Electronically Signed: Vivian Chase MD at 17:40 EDT , Service support ,
--- NOTE | 2019-07-01 12:37 | PCM.CONS.GEN ---
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 She underwent a CT scan which showed air in her bladder and her uterus. She does note that she has been passing air with urine for the few years. She also reports her last colonoscopy was 14 years ago. She does not have any blood in her urine. She does not know if she is passing any stool with her urine. She has a history of partial colectomy for diverticulitis. Past Medical History Past Medical History (Chronic Problems): Chronic Problems Morbid obesity (Chronic) Chronic respiratory failure (Chronic) Essential hypertension (Chronic) Type II diabetes mellitus (Chronic) CAD (coronary artery disease) (Chronic) Allergies No Known Allergies Allergy (Verified 06/29/19 17:39) Home Medications: Ambulatory Orders Medication Instructions Recorded Albuterol Aerosols [Ventolin 2.5 mg INHALATION Q4HWA.RT PRN 06/05/19 Aerosols] Allopurinol 100 mg PO DAILY 06/05/19 Aspirin [Aspirin, Baby] 81 mg PO DAILY@0800 06/05/19 Colchicine 0.6 mg PO PRN PRN 06/05/19 Fluoxetine HCl [Prozac] 40 mg PO DAILY 06/05/19 Folic Acid 1 mg PO DAILY 06/05/19 Furosemide [Lasix] 40 mg PO DAILY 06/05/19 Insulin NPH Human Isophane 24 units SUBCUT QHS 06/05/19 [Humulin N] Insulin NPH Human Isophane 26 units SUBCUT BREAKFAST 06/05/19 [Humulin N] Insulin Regular, Human [Humulin R] 10 units SUBCUT QHS 06/05/19 Insulin Regular, Human [Humulin R] 16 units SUBCUT BREAKFAST 06/05/19 Isosorbide Mononitrate [Imdur] 60 mg PO BID 06/05/19 Levothyroxine [Synthroid] 75 mcg PO DAILY 06/05/19 Loratadine 10 mg PO DAILY 06/05/19 Meclizine HCl [Antivert] 12.5 mg PO DAILY PRN PRN 06/05/19 Metolazone [Zaroxolyn] 5 mg PO DAILY 06/05/19 Metoprolol Succinate [Toprol Xl] 25 mg PO DAILY 06/05/19 Nitroglycerin (INPATIENT USE) 0.4 mg SUBLINGUAL Q5M PRN 06/05/19 [Nitrostat] Omeprazole 40 mg PO DAILY 06/05/19 Polyethylene Glycol 3350 [Miralax] 17 gm PO DAILY 06/05/19 Potassium Chloride 20 meq PO BID 06/05/19 Simvastatin 20 mg PO QHS 06/05/19 Spironolactone 25 mg PO DAILY 06/05/19 [place], Disposable [Easy Touch 1 ea DAILY #10 dis.needle 06/09/19 Hypodermic Needle] Syringe, Disposable, 5 ml [Bulk 1 ea DAILY #10 disp.syrin 06/09/19 Syringe] Methylcellulose [Citrucel] 850 gm PO DAILY 06/29/19 Surgical History: colectomy - With colostomy and colostomy reversal, coronary bypass surgery, - - Coronary stents; 2 knee operations Lives: Alone Smoking Status: Former smoker Alcohol: None - *Family History Maternal History Items: Heart Disease, - - Her mother at 96 following complications of surgery from broken hip. Paternal History Items: - - Patient do not know her paternal medical history. Review of Systems Constitutional: Denies: Anorexia, Fever HEENT: Denies: Difficulty Swallowing Cardiovascular: Denies: Chest Pain Gastrointestinal: Denies: Abdominal Pain, Constipation, Diarrhea, Nausea, Vomiting Genitourinary: Reports: Dysuria, - - Passing air with her urine Skin: Denies: Jaundice Neurological: Denies: Balance problems Psychiatric: Denies: Anxiety Hematologic/ Lymphatic: Denies: Anemia Patient Problems: Active and Suspected Problems Hypokalemia (Acute) Urinary tract infection (Acute) - Physical Exam General: Alert, Oriented x3 HEENT: Atraumatic Lungs: Normal air movement Cardiovascular: Regular rate, Regular Rhythm Abdomen: Soft, Non Tender, Non-Distended Extremities: No clubbing Skin: No rashes Musculoskeletal: No Muscle Wasting Neurological: Cranial nerves II-XII grossly intact Psych/Mental Status: Normal Affect Vital Signs Temp Pulse Resp BP Pulse Ox 98.2 F 65 18 117/64 95 07/01/19 10:09 07/01/19 11:39 07/01/19 10:09 07/01/19 10:15 07/01/19 11:39 Oxygen Flow Rate (L/min) 3 Oxygen Delivery Method Room Air Weight: 222 lb 7.143 oz Body Mass Index (BMI) 38.7 Intake and Output for Last 24 Hours 06/29/19 06/30/19 07/01/19 23:59 23:59 23:59 Intake Total 1660 / 2210 1460 / 1460 Output Total 400 / 400 250 / 250 Balance 1260 / 1810 1210 / 1210 Microbiology Past 72 Hours 06/29/19 20:04 Urine Culture - Preliminary Urine Catheter - Catheter Presumptive E. coli 06/29/19 18:33 Blood Culture - Preliminary Blood Culture (Wb) - Right Hand Laboratory Tests Past 24 Hrs 07/01/19 05:50 Sodium 139 Potassium 3.7 Chloride 103 Carbon Dioxide 29.0 Anion Gap 7 BUN 31 H Creatinine 1.30 H Estim Creat Clear Calc 29.50 Est GFR (MDRD) Af Amer 51 L Est GFR (MDRD) Non-Af 42 L BUN/Creatinine Ratio 23.8 H Glucose 190 H Calcium 8.9 POC Glucose 07/01/19 07/01/19 07/01/19 11:44 07:02 03:39 POC Glucose 287 H 185 H 216 H 06/30/19 06/30/19 23:46 16:21 POC Glucose 209 H 219 H Clinical Impression(s) from Imaging Studies Abdomen/Pelvis CT 06/30/19 12:20 IMPRESSION: Air is seen within the uterus as well as the bladder. Clinical correlation is recommended. 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 Sigmoid diverticulosis with no radiographic evidence of diverticulitis. 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 Patient reports that she has been passing air along with her urine for years. Her last colonoscopy was 14 years ago when she did have a history of partial colectomy. I reviewed the patient's CT scan that does show air in the bladder and uterus. She has not had any recent manipulation of either. In reviewing the CT scan it appears that the colon has a good fat plane between it and the bladder and uterus. There is a loop of small bowel that appears to closely be adherent to the dome of the uterus. 2. I would like to order a CT scan with p.o., IV, rectal contrast. The first step is to better delineate the fistula and its tract. Next the patient will likely need cystoscopy as well as colonoscopy. I am leaving town after tomorrow and the patient can be worked up as an outpatient with plans for outpatient surgery. I will need to get [employer]LL[employer]ER and urology on board to help with the repair after resection. Ruben Sellers MD Pager: [facility] [address] [place] [address] [place] [address] Office:
[2019-07-01] MEDS: Albuterol 2.5 MG/3 ML VIAL.NEB. INHALATION ×2 (15:00→18:39)
--- NOTE | 2019-07-01 15:28 | PCM.PN.HOSP ---
Patient Problems: Active and Suspected Problems Hypokalemia (Acute) Urinary tract infection (Acute) Subjective: Patient was seen and examined. She feels well. She has lower abdominal discomfort but feels well overall. Denies diarrhea, nausea or vomiting. Objective: Physical Exam General: Alert, Oriented x3, Cooperative, not pale, not jaundiced, obese HEENT: Atraumatic, PERRLA, EOMI, Normocephalic Neck: Supple, No JVD, Negative Carotid Bruits Lungs: Clear to auscultation, Normal air movement Cardiovascular: Regular rate, No murmurs Abdomen: Bowel Sounds Present, Soft, lower abdominal tenderness, no palpable organs Extremities: No edema Skin: No rashes, No breakdown Musculoskeletal: No Tenderness to Palpation of Joints or Extremities Neurological: Cranial nerves II-XII grossly intact Psych/Mental Status: Normal Affect, Appropriate Vitals/I&O's: Vital Signs Temp Pulse Resp BP Pulse Ox 98.2 F 65 18 117/64 95 07/01/19 10:09 07/01/19 11:39 07/01/19 10:07/01/19 10:15 07/01/19 11:39 Oxygen Flow Rate (L/min) 3 Oxygen Delivery Method Room Air Weight: 100.9 kg Body Mass Index (BMI) 38.7 Intake and Output for Last 24 Hours 06/29/19 06/30/19 07/01/19 23:59 23:59 23:59 Intake Total 1660 / 2210 1520 / 1520 Output Total 400 / 400 250 / 250 Balance 1260 / 1810 1270 / 1270 Microbiology Past 72 Hours 06/29/19 20:04 Urine Catheter - Catheter Urine Culture - Preliminary Presumptive E. coli 06/29/19 18:33 Blood Culture (Wb) - Right Hand Blood Culture - Preliminary Laboratory Results 06/30/19 16:21: POC Glucose 219 H 06/30/19 23:46: POC Glucose 209 H 07/01/19 03:39: POC Glucose 216 H 07/01/19 05:50: Sodium 139, Potassium 3.7, Chloride 103, Carbon Dioxide 29.0, Anion Gap 7, BUN 31 H, Creatinine 1.30 H, Estim Creat Clear Calc 29.50, Est GFR (MDRD) Af Amer 51 L, Est GFR (MDRD) Non-Af 42 L, BUN/Creatinine Ratio 23.8 H, Glucose 190 H, Calcium 8.9 07/01/19 07:02: POC Glucose 185 H 07/01/19 11:44: POC Glucose 287 H Current Medications Acetaminophen (Tylenol) 650 mg PO Q6H PRN PRN PRN Reason: Mild Pain (1-3)/Temp > 100.7 F Last Admin: 06/30/19 20:44 Dose: 650 mg Documented by: Albuterol Sulfate (Ventolin Aerosols) 2.5 mg INHALATION Q2H PRN PRN PRN Reason: sob/wheezing Last Admin: 07/01/19 15:00 Dose: 2.5 mg Documented by: Allopurinol (Zyloprim) 100 mg PO DAILY [facility] Last Admin: 07/01/19 10:15 Dose: 100 mg Documented by: Aspirin (Aspirin, Baby) 81 mg PO DAILY@0800 [facility] Last Admin: 07/01/19 08:47 Dose: 81 mg Documented by: Atorvastatin Calcium (Lipitor) 10 mg PO QHS [facility] Last Admin: 06/30/19 23:47 Dose: 10 mg Documented by: Dextrose (D50w Syringe) 0 gm IV X1 PRN; Protocol PRN Reason: Hypoglycemia Enoxaparin Sodium (Lovenox) 30 mg SC DAILY@1000 [facility] Last Admin: 07/01/19 10:16 Dose: 30 mg Documented by: Fluoxetine HCl (Prozac) 40 mg PO DAILY [facility] Last Admin: 07/01/19 10:15 Dose: 40 mg Documented by: Folic Acid (Folic Acid) 1 mg PO DAILYCM [facility] Last Admin: 07/01/19 08:47 Dose: 1 mg Documented by: Furosemide (Lasix) 40 mg PO DAILY [facility] Last Admin: 07/01/19 10:16 Dose: 40 mg Documented by: Glucagon () 1 mg IM .X1 PRN PRN Reason: Hypoglycemia Meropenem 500 mg/ Sodium (Chloride) 60 mls @ 100 mls/hr IV Q12 [facility] Last Infusion: 07/01/19 12:22 Dose: Infused Documented by: Insulin Human Lispro (Humalog Kwikpen (Bkc)) 0 unit SC ACHS & 3AM [facility]; Protocol Last Admin: 07/01/19 11:51 Dose: 3 u Documented by: Isosorbide Mononitrate (Imdur) 60 mg PO BID [facility] Last Admin: 07/01/19 10:15 Dose: 60 mg Documented by: Lactobacillus Acidophilus (Acidophilus) 1 tablet PO BID [facility] Last Admin: 07/01/19 10:15 Dose: 1 tablet Documented by: Levothyroxine Sodium (Synthroid) 75 mcg PO DAILY@0600 [facility] Last Admin: 07/01/19 07:00 Dose: 75 mcg Documented by: Loratadine (Claritin) 10 mg PO DAILY [facility] Last Admin: 07/01/19 10:15 Dose: 10 mg Documented by: Meclizine HCl (Antivert) 12.5 mg PO DAILY PRN PRN PRN Reason: DIZZINESS Metolazone (Zaroxolyn) 5 mg PO DAILY [facility] Last Admin: 07/01/19 10:15 Dose: 5 mg Documented by: Metoprolol Succinate (Toprol Xl (Beta Dom)) 25 mg PO DAILY [facility] Last Admin: 07/01/19 10:15 Dose: 25 mg Documented by: Nystatin (Mycostatin Powder) 1 applic TOPICAL BID [facility]; Protocol Last Admin: 07/01/19 10:16 Dose: 1 applicatio Documented by: Ondansetron HCl (Zofran) 4 mg IV Q8H PRN PRN PRN Reason: NAUSEA/VOMITING Pantoprazole Sodium (Protonix) 40 mg PO DAILY [facility] Last Admin: 07/01/19 10:15 Dose: 40 mg Documented by: Polyethylene Glycol (Miralax) 17 gm PO DAILY [facility] Last Admin: 07/01/19 10:15 Dose: 17 gm Documented by: Potassium Chloride (K-Dur) 40 meq PO BID [facility] Last Admin: 07/01/19 10:16 Dose: 40 meq Documented by: Spironolactone (Aldactone) 25 mg PO DAILY [facility] Last Admin: 07/01/19 10:15 Dose: 25 mg Documented by: Medical Necessity - Tobacco Use Smoking Status: Former smoker Assessment/Plan All Active Problems Hypokalemia (Acute) Urinary tract infection (Acute) 79 year old F with PMHx of hypertension,Type 2 DM, CAD status post CABG, recently discharged with ESBL UTI on IM ertapenem, admitted with altered mental status. 1. Acute metabolic encephalopathy secondary to current ESBL E. coli, resolved, alert oriented x3 2. ESBL UTI, recently discharged with same, repeat urine cultures shows ESBL E. coli ID consulted, on IV meropenem 3. Gram-positive cocci bacteremia, 1 out of 2 blood cultures, likely contaminant, ID following, on IV meropenem 4. 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 Type 2 DM, sugars are fairly controlled, continue with blood glucose checks and insulin sliding scale 6. Hypokalemia, resolved 7. CAD s/p CABG, stenting/CHF/hypertension, clinically stable, in acute exacerbation 8. DVT Prophylaxis - Lovenox SC 9. Disposition: Possible DC in 48-72hrs pending culture results Code Visit Inpatient E&M: 07690 Subs Hosp L2
[2019-07-01 17:20] LABS: Bedside Glucose 209 mg/dL (70-110)
[2019-07-01] MEDS: DiphenhydrAMINE 50 MG/ML Syringe 25 MG IV (17:41)
[2019-07-01] MEDS: Acetaminophen 325 MG Tablet 650 MG PO (19:37)
[2019-07-01] MEDS: Atorvastatin Calcium 10 MG Tablet PO (22:08)
[2019-07-01 22:46] LABS: Bedside Glucose 270 mg/dL (70-110)
[2019-07-02] VITALS (8 sets, daily range): BP systolic 115–125; BP diastolic 52–69; PULSE 69–90; RESP 16–18; TEMP 36.6–37.1; O2SAT 92–96
[2019-07-02] MEDS: Insulin Lispro 100 UNIT/ML INSULN.PEN SC ×4 (02:22→16:28)
[2019-07-02 02:31] LABS: Bedside Glucose 271 mg/dL (70-110)
[2019-07-02] MEDS: Levothyroxine 75 MCG Tablet PO (06:33)
[2019-07-02 06:46] LABS: Bedside Glucose 244 mg/dL (70-110)
[2019-07-02] MEDS: Folic Acid 1 MG Tablet PO (08:59)
[2019-07-02] MEDS: Aspirin 81 MG TAB.CHEW PO (08:59)
[2019-07-02] MEDS: Pantoprazole Sodium 40 MG Tablet PO (09:05)
[2019-07-02] MEDS: Isosorbide Mononitrate 60 MG Tablet PO (09:05)
[2019-07-02] MEDS: Allopurinol 100 MG Tablet PO (09:05)
[2019-07-02] MEDS: Furosemide 40 MG Tablet PO (09:05)
[2019-07-02] MEDS: Metoprolol(XL)Succ 25 MG Tablet PO (09:06)
[2019-07-02] MEDS: FLUoxetine 20 MG Capsule 40 MG PO (09:06)
[2019-07-02] MEDS: Loratadine 10 MG Tablet PO (09:06)
[2019-07-02] MEDS: metOLazone 5 MG Tablet PO (09:07)
[2019-07-02] MEDS: Polyethylene Glycol 3350 17 GM PACKET PO (09:09)
[2019-07-02] MEDS: Spironolactone 25 MG Tablet PO (09:11)
[2019-07-02] MEDS: Enoxaparin 30 MG/0.3 ML Syringe SC (09:12)
--- NOTE | 2019-07-02 09:23 | CASEMGMT ---
REGGIE QUEVEDO NOTE: Per [facility], pt is still current/active with them for PT services. Resumption order placed. Rupal SOLARES RN CM
[2019-07-02] MEDS: 0.9% NaCl Peripheral Flush Adult/Peds IV ×2 (09:29→15:02)
[2019-07-02] MEDS: Nystatin Powder 15gm Bottle 1 APPLIC TOPICAL (09:41)
[2019-07-02] MEDS: 0.9% NaCl IVPB Med Flush (250 mL) 15 ML IV (09:44)
[2019-07-02] MEDS: Albuterol 2.5 MG/3 ML VIAL.NEB. INHALATION ×2 (10:41→16:05)
--- NOTE | 2019-07-02 12:14 | PCM.PN.HOSP ---
Patient Problems: Active and Suspected Problems Hypokalemia (Acute) Urinary tract infection (Acute) Subjective: Patient was seen and examined. She feels well. No more dysuria/lower abdominal discomfort. Denies fever or chills. Objective: Physical Exam General: Alert, Oriented x3, Cooperative, not pale, not jaundiced, obese HEENT: Atraumatic, PERRLA, EOMI, Normocephalic Neck: Supple, No JVD, Negative Carotid Bruits Lungs: Clear to auscultation, Normal air movement Cardiovascular: Regular rate, No murmurs Abdomen: Bowel Sounds Present, Soft, Non Tender, no palpable organs Extremities: No edema Skin: No rashes, No breakdown Musculoskeletal: No Tenderness to Palpation of Joints or Extremities Neurological: Cranial nerves II-XII grossly intact Psych/Mental Status: Normal Affect, Appropriate Vitals/I&O's: Vital Signs Temp Pulse Resp BP Pulse Ox 97.8 F 78 16 115/56 L 93 07/02/19 08:13 07/02/19 11:16 07/02/19 10:40 07/02/19 09:06 07/02/19 11:16 Oxygen Flow Rate (L/min) 2 Oxygen Delivery Method Room Air Weight: 100.9 kg Body Mass Index (BMI) 38.7 Intake and Output for Last 24 Hours 06/30/19 07/01/19 07/02/19 23:59 23:59 23:59 Intake Total 1660 / 2210 2030 / 2030 594.00 / 594.00 Output Total 400 / 400 450 / 450 Balance 1260 / 1810 1580 / 1580 594.00 / 594.00 Microbiology Past 72 Hours 06/29/19 18:33 Blood Culture (Wb) - Right Hand Blood Culture - Preliminary 06/29/19 20:04 Urine Catheter - Catheter Urine Culture - Final Presumptive E. coli Laboratory Results 07/01/19 17:05: POC Glucose 209 H 07/01/19 21:55: POC Glucose 270 H 07/02/19 02:21: POC Glucose 271 H 07/02/19 06:29: POC Glucose 244 H Current Medications Acetaminophen (Tylenol) 650 mg PO Q6H PRN PRN PRN Reason: Mild Pain (1-3)/Temp > 100.7 F Last Admin: 07/01/19 19:37 Dose: 650 mg Documented by: Albuterol Sulfate (Ventolin Aerosols) 2.5 mg INHALATION Q2H PRN PRN PRN Reason: sob/wheezing Last Admin: 07/02/19 10:41 Dose: 2.5 mg Documented by: Allopurinol (Zyloprim) 100 mg PO DAILY [facility] Last Admin: 07/02/19 09:05 Dose: 100 mg Documented by: Aspirin (Aspirin, Baby) 81 mg PO DAILY@0800 [facility] Last Admin: 07/02/19 08:59 Dose: 81 mg Documented by: Atorvastatin Calcium (Lipitor) 10 mg PO QHS [facility] Last Admin: 07/01/19 22:08 Dose: 10 mg Documented by: Dextrose (D50w Syringe) 0 gm IV X1 PRN; Protocol PRN Reason: Hypoglycemia Diphenhydramine HCl (Benadryl) 25 mg IV Q6H PRN PRN PRN Reason: ITCHING Last Admin: 07/01/19 17:41 Dose: 25 mg Documented by: Enoxaparin Sodium (Lovenox) 30 mg SC DAILY@1000 [facility] Last Admin: 07/02/19 09:12 Dose: 30 mg Documented by: Fluoxetine HCl (Prozac) 40 mg PO DAILY [facility] Last Admin: 07/02/19 09:06 Dose: 40 mg Documented by: Folic Acid (Folic Acid) 1 mg PO DAILYCM [facility] Last Admin: 07/02/19 08:59 Dose: 1 mg Documented by: Furosemide (Lasix) 40 mg PO DAILY [facility] Last Admin: 07/02/19 09:05 Dose: 40 mg Documented by: Glucagon () 1 mg IM .X1 PRN PRN Reason: Hypoglycemia Meropenem 500 mg/ Sodium (Chloride) 60 mls @ 100 mls/hr IV Q12 [facility] Last Infusion: 07/02/19 10:05 Dose: Infused Documented by: Sodium Chloride () 250 mls @ 15 mls/hr IV .[id number] PRN PRN Reason: SALINE FLUSH Last Infusion: 07/02/19 11:00 Dose: 0 mls/hr Documented by: Insulin Human Lispro (Humalog Kwikpen (Bkc)) 0 unit SC ACHS & 3AM [facility]; Protocol Last Admin: 07/02/19 12:06 Dose: 3 u Documented by: Isosorbide Mononitrate (Imdur) 60 mg PO BID [facility] Last Admin: 07/02/19 09:05 Dose: 60 mg Documented by: Lactobacillus Acidophilus (Acidophilus) 1 tablet PO BID [facility] Last Admin: 07/02/19 09:07 Dose: 1 tablet Documented by: Levothyroxine Sodium (Synthroid) 75 mcg PO DAILY@0600 [facility] Last Admin: 07/02/19 06:33 Dose: 75 mcg Documented by: Loratadine (Claritin) 10 mg PO DAILY [facility] Last Admin: 07/02/19 09:06 Dose: 10 mg Documented by: Meclizine HCl (Antivert) 12.5 mg PO DAILY PRN PRN PRN Reason: DIZZINESS Metolazone (Zaroxolyn) 5 mg PO DAILY [facility] Last Admin: 07/02/19 09:07 Dose: 5 mg Documented by: Metoprolol Succinate (Toprol Xl (Beta Dom)) 25 mg PO DAILY [facility] Last Admin: 07/02/19 09:06 Dose: 25 mg Documented by: Nystatin (Mycostatin Powder) 1 applic TOPICAL BID [facility]; Protocol Last Admin: 07/02/19 09:41 Dose: 1 applicatio Documented by: Ondansetron HCl (Zofran) 4 mg IV Q8H PRN PRN PRN Reason: NAUSEA/VOMITING Pantoprazole Sodium (Protonix) 40 mg PO DAILY [facility] Last Admin: 07/02/19 09:05 Dose: 40 mg Documented by: Polyethylene Glycol (Miralax) 17 gm PO DAILY [facility] Last Admin: 07/02/19 09:09 Dose: 17 gm Documented by: Potassium Chloride (K-Dur) 40 meq PO BID [facility] Last Admin: 07/02/19 09:11 Dose: 40 meq Documented by: Sodium Chloride () 10 - 40 ml IV UD PRN PRN Reason: SALINE FLUSH Last Admin: 07/02/19 09:29 Dose: 10 ml Documented by: Spironolactone (Aldactone) 25 mg PO DAILY [facility] Last Admin: 07/02/19 09:11 Dose: 25 mg Documented by: Medical Necessity - Tobacco Use Smoking Status: Former smoker Assessment/Plan All Active Problems Hypokalemia (Acute) Urinary tract infection (Acute) 79 year old F with PMHx of hypertension,Type 2 DM, CAD status post CABG, recently discharged with ESBL UTI on IM ertapenem, admitted with altered mental status. 1. ESBL UTI, recently discharged with same, repeat urine cultures shows ESBL E. coli ID consulted, on IV meropenem, discharge planning in the works. 2. Acute metabolic encephalopathy secondary to current ESBL E. coli, resolved 3. Gram-positive cocci bacteremia, 1 out of 2 blood cultures, likely contaminant, ID following, on IV meropenem 4. 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 5. Type 2 DM, sugars are fairly controlled, continue with blood glucose checks and insulin sliding scale Will resume home NPH. 6. Hypokalemia, resolved 7. CAD s/p CABG, stenting/CHF/hypertension, clinically stable, in acute exacerbation 8. DVT Prophylaxis - Lovenox SC Code Visit Inpatient E&M: 51954 Subs Hosp L2
[2019-07-02 12:15] LABS: Bedside Glucose 290 mg/dL (70-110)
--- NOTE | 2019-07-02 12:21 | PN.SURG_ITS ---
Patient Problems: Active and Suspected Problems Hypokalemia (Acute) Urinary tract infection (Acute) Subjective: No changes or acute events since yesterday. - Physical Exam General: Alert, Oriented x3 Cardiovascular: Regular rate Abdomen: Soft, Non Tender, Non-Distended Vital Signs Temp Pulse Resp BP Pulse Ox 97.8 F 78 16 115/56 L 93 07/02/19 08:13 07/02/19 11:16 07/02/19 10:40 07/02/19 09:06 07/02/19 11:16 Oxygen Flow Rate (L/min) 2 Oxygen Delivery Method Room Air Weight: 222 lb 7.143 oz Body Mass Index (BMI) 38.7 Intake and Output for Last 24 Hours 06/30/19 07/01/19 07/02/19 23:59 23:59 23:59 Intake Total 1660 / 2210 2030 / 2030 594.00 / 594.00 Output Total 400 / 400 450 / 450 Balance 1260 / 1810 1580 / 1580 594.00 / 594.00 Microbiology Past 72 Hours 06/29/19 18:33 Blood Culture - Preliminary Blood Culture (Wb) - Right Hand 06/29/19 20:04 Urine Culture - Final Urine Catheter - Catheter Presumptive E. coli POC Glucose 07/02/19 07/02/19 07/02/19 12:04 06:29 02:21 POC Glucose 290 H 244 H 271 H 07/01/19 07/01/19 21:55 17:05 POC Glucose 270 H 209 H Clinical Impression(s) from Imaging Studies Abdomen/Pelvis CT 07/01/19 12:36 IMPRESSION: Abdomen and pelvic CT exam with oral and rectal contrast fails to demonstrate an enteric fistula to the uterus or bladder. A small amount of air remains in the endometrial space of the uterus and one bubble in the urinary bladder. Some fistula may be so small that liquid cannot pass but air can pass. Nevertheless, there is no visualized tract between the pelvic structures, stranding of the fatty tissues or tethering of the adjacent colon or small bowel. No additional acute abdominal or pelvic findings. Electronically Signed: Vivian Chase MD at 17:40 EDT , Service support , Medical Necessity - Tobacco Use Smoking Status: Former smoker Assessment/Plan All Active Problems Hypokalemia (Acute) Urinary tract infection (Acute) 79-year-old female with air in her bladder and uterus 1. I discussed the patient's CAT scan results from yesterday with her. CT with oral, IV and rectal contrast was performed. It did not demonstrate any visible fistula. At this point I believe the next course of action would be a cystoscopy to see if there is indeed a fistula. The patient can follow-up with me after cystoscopy is performed and if there is indeed a fistula I will have to coordinate repair with [employer] as well in case repair of uterus or vagina is necessary as well. 2. This time continue to treat UTI. Okay for discharge from my standpoint and follow-up with me and with urology for cystoscopy. Ruben Sellers MD Pager: [facility] [address] [place] [address], [address] [place] [phone] Office:
--- NOTE | 2019-07-02 13:28 | PCM.PN.ID ---
Patient Problems: Active and Suspected Problems Hypokalemia (Acute) Urinary tract infection (Acute) Subjective: Feeling well, no fever, no abd pain - Physical Exam General: Alert, Cooperative, No apparent distress Lungs: Clear to auscultation, Normal air movement Cardiovascular: Regular rate, Regular Rhythm Abdomen: Soft, Non Tender, Non-Distended Skin: No rashes Vital Signs Temp Pulse Resp BP Pulse Ox 98.0 F 78 18 125/52 H 93 07/02/19 11:17 07/02/19 11:17 07/02/19 11:17 07/02/19 11:17 07/02/19 11:16 Oxygen Flow Rate (L/min) 2 Oxygen Delivery Method Room Air Weight: 100.9 kg Body Mass Index (BMI) 38.7 Intake and Output for Last 24 Hours 06/30/19 07/01/19 07/02/19 23:59 23:59 23:59 Intake Total 1660 / 2210 2030 / 2030 594.00 / 594.00 Output Total 400 / 400 450 / 450 Balance 1260 / 1810 1580 / 1580 594.00 / 594.00 Microbiology Past 72 Hours 06/29/19 18:33 Blood Culture - Preliminary Blood Culture (Wb) - Right Hand 06/29/19 20:04 Urine Culture - Final Urine Catheter - Catheter Presumptive E. coli POC Glucose 07/02/19 07/02/19 07/02/19 12:04 06:29 02:21 POC Glucose 290 H 244 H 271 H 07/01/19 07/01/19 21:55 17:05 POC Glucose 270 H 209 H Medical Necessity - Tobacco Use Smoking Status: Former smoker Route of nutrition/ use of supplements: [] Nutritional Intake: [] IV Site: [] Villagomez Catheter: [] - Assessment/Plan Antibiotics: [] Assessment/Plan: [] Active and Suspected Problems Hypokalemia (Acute) Urinary tract infection (Acute) suspected esbl ecoli recurrent complicated uti - changed erta to meropenem due to cost. CT shows air in bladder and uterus. No villagomez in place. Outpt surgical followup planned with Dr. Sellers. Will write for 10 days IM ertapenem after discharge. single (+) Bcx with strep-like - likely contaminant, covered by erta Will follow, d/w Dr. Khan, wrote rx for abx. ID followup as needed
--- NOTE | 2019-07-02 13:50 | DCINST_ITS ---
- Discharge Diagnoses Current Active Problems: Current Active and Chronic Problems Hypokalemia (Acute) Urinary tract infection (Acute) Reason(s) for Visit for Discharge Instructions: Altered mental status, UTI You will use the following diet at home:: Calorie/Carbohydrate Controlled (specify 1200, 1400, etc), Cardiac Your food should be the consistency of: Regular Your liquids should be the consistency of: Regular/Thin Discharge Activity: Return to Normal Activity Additional Instructions: Complete your antibiotics. Follow-up with Dr. Sellers and Rex within 1-2 weeks. Continue to monitor your blood sugar. You will be discharged with home health nursing, physical and occupational therapy. Allergies/Adverse Reactions: Allergies Iodinated Contrast Media [CONTRASTS] Adverse Reaction (Verified 07/01/19 17:02) Hives Medications to take at Discharge Albuterol Aerosols [Ventolin Aerosols] 2.5 mg INHALATION Q4HWA.RT PRN 06/05/19 Allopurinol 100 mg PO DAILY 06/05/19 Aspirin [Aspirin, Baby] 81 mg PO DAILY@0800 06/05/19 Colchicine 0.6 mg PO PRN PRN 06/05/19 Fluoxetine HCl [Prozac] 40 mg PO DAILY 06/05/19 Folic Acid 1 mg PO DAILY 06/05/19 Furosemide [Lasix] 40 mg PO DAILY 06/05/19 Insulin NPH Human Isophane [Humulin N] 24 units SUBCUT QHS 06/05/19 Insulin NPH Human Isophane [Humulin N] 26 units SUBCUT BREAKFAST 06/05/19 Insulin Regular, Human [Humulin R] 10 units SUBCUT QHS 06/05/19 Insulin Regular, Human [Humulin R] 16 units SUBCUT BREAKFAST 06/05/19 Isosorbide Mononitrate [Imdur] 60 mg PO BID 06/05/19 Levothyroxine [Synthroid] 75 mcg PO DAILY 06/05/19 Loratadine 10 mg PO DAILY 06/05/19 Meclizine HCl [Antivert] 12.5 mg PO DAILY PRN PRN 06/05/19 Metolazone [Zaroxolyn] 5 mg PO DAILY 06/05/19 Metoprolol Succinate [Toprol Xl] 25 mg PO DAILY 06/05/19 Nitroglycerin (INPATIENT USE) [Nitrostat] 0.4 mg SUBLINGUAL Q5M PRN 06/05/19 Omeprazole 40 mg PO DAILY 06/05/19 Polyethylene Glycol 3350 [Miralax] 17 gm PO DAILY 06/05/19 Potassium Chloride 20 meq PO BID 06/05/19 Simvastatin 20 mg PO QHS 06/05/19 Spironolactone 25 mg PO DAILY 06/05/19 [place], Disposable [Easy Touch Hypodermic Needle] 1 ea MC DAILY #10 dis.needle 06/09/19 Syringe, Disposable, 5 ml [Bulk Syringe] 1 ea MC DAILY #10 disp.syrin 06/09/19 Methylcellulose [Citrucel] 850 gm PO DAILY 06/29/19 Ertapenem Sod [Invanz] 1 gm IM DAILY #10 vial 07/02/19 Nystatin Powder [Mycostatin Powder] 1 applic TOPICAL BID #1 bottle 07/02/19 The following prescriptions were given: Ertapenem Sod [Invanz] 1 gm IM DAILY #10 vial Prescription Printed Nystatin Powder [Mycostatin Powder] 1 applic TOPICAL BID #1 bottle Transmission Status: Pending to [facility] Primary Care Physician: Rommel Arango MD [Primary Care Provider] - Please follow up with your Primary Care Physician in: within 1-2 weeks Test Results: Test results from this visit will be discussed in further detail at your follow- up appointment, if applicable. Please Follow Up With: Surekha oGodman MD When: within 1-2 weeks Please Follow Up With: Ruben Sellers MD When: in 2 weeks Proposed Discharge Date: 07/02/19
--- NOTE | 2019-07-02 13:54 | PCM.DC.SUM ---
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 Electronically Signed: Danitza Larson MD at 19:00 EDT Tel , Service support , Abdomen/Pelvis CT 06/30/19 12:20 IMPRESSION: Air is seen within the uterus as well as the bladder. Clinical correlation is recommended. 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 Sigmoid diverticulosis with no radiographic evidence of diverticulitis. Electronically Signed: Joe Peters, at 13:50 EDT , Service support , Abdomen/Pelvis CT 07/01/19 12:36 IMPRESSION: Abdomen and pelvic CT exam with oral and rectal contrast fails to demonstrate an enteric fistula to the uterus or bladder. A small amount of air remains in the endometrial space of the uterus and one bubble in the urinary bladder. Some fistula may be so small that liquid cannot pass but air can pass. Nevertheless, there is no visualized tract between the pelvic structures, stranding of the fatty tissues or tethering of the adjacent colon or small bowel. No additional acute abdominal or pelvic findings. Electronically Signed: Vivian Chase MD at 17:40 EDT , Service support , ID Urology General surgery Operations: None Procedures: None Summary of Care Provided: 79 year old F with PMHx of hypertension,Type 2 DM, CAD status post CABG, recently discharged with ESBL UTI on IM ertapenem, admitted with altered mental status. Patient was admitted and started on IV meropenem. Repeat urine culture showed ESBL E. coli. Infectious disease were consulted. Her mental health status was back to her baseline the next morning. She was found to be hypokalemic on admission and that was resolved with treatment. Initial CT of the abdomen and pelvis was suggestive of air in the bladder and uterus with suggestion of possible colonic vesicular fistula Urology was consulted but recommended general surgery consult. General surgery requested for repeat CT of the abdomen and pelvic with oral and IV contrast which was negative for acute fistula. Patient was discharged on IM ertapenem for 10 days. She will follow-up with Dr. Goodman in 1 to 2 weeks for cystoscopy. She will also follow-up with general surgery in 2 weeks for colonoscopy or possible surgery. Patient's blood cultures grew gram positive cocci in 1 out of 2 sets. This was believed to be secondary to contaminant. This would also be covered by IV ertapenem. Patient Problems: Active and Suspected Problems Hypokalemia (Acute) Urinary tract infection (Acute) Subjective: See progress note of day Objective: See progress note of day - Physical Exam Vital Signs Temp Pulse Resp BP Pulse Ox 98.0 F 78 18 125/52 H 93 07/02/19 11:17 07/02/19 11:17 07/02/19 11:17 07/02/19 11:17 07/02/19 11:16 Oxygen Flow Rate (L/min) 2 Oxygen Delivery Method Room Air Weight: 100.9 kg Body Mass Index (BMI) 38.7 Intake and Output for Last 24 Hours 06/30/19 07/01/19 07/02/19 23:59 23:59 23:59 Intake Total 1660 / 2210 2029 / 2030 594.00 / 594.00 Output Total 400 / 400 450 / 450 Balance 1260 / 1810 1580 / 1580 594.00 / 594.00 Microbiology Past 72 Hours 06/29/19 18:33 Blood Culture - Preliminary Blood Culture (Wb) - Right Hand 06/29/19 20:04 Urine Culture - Final Urine Catheter - Catheter Presumptive E. coli POC Glucose 07/02/19 07/02/19 07/02/19 12:04 06:29 02:21 POC Glucose 290 H 244 H 271 H 07/01/19 07/01/19 21:55 17:05 POC Glucose 270 H 209 H Discharge Diet: Low fat/ Low Cholesterol, 2000 mg Sodium Diet, Carb Control Diet Discharge Activity: Return to Normal Activity Home Medications: Medications to take at Discharge Albuterol Aerosols [Ventolin Aerosols] 2.5 mg INHALATION Q4HWA.RT PRN 06/05/19 Allopurinol 100 mg PO DAILY 06/05/19 Aspirin [Aspirin, Baby] 81 mg PO DAILY@0800 06/05/19 Colchicine 0.6 mg PO PRN PRN 06/05/19 Fluoxetine HCl [Prozac] 40 mg PO DAILY 06/05/19 Folic Acid 1 mg PO DAILY 06/05/19 Furosemide [Lasix] 40 mg PO DAILY 06/05/19 Insulin NPH Human Isophane [Humulin N] 24 units SUBCUT QHS 06/05/19 Insulin NPH Human Isophane [Humulin N] 26 units SUBCUT BREAKFAST 06/05/19 Insulin Regular, Human [Humulin R] 10 units SUBCUT QHS 06/05/19 Insulin Regular, Human [Humulin R] 16 units SUBCUT BREAKFAST 06/05/19 Isosorbide Mononitrate [Imdur] 60 mg PO BID 06/05/19 Levothyroxine [Synthroid] 75 mcg PO DAILY 06/05/19 Loratadine 10 mg PO DAILY 06/05/19 Meclizine HCl [Antivert] 12.5 mg PO DAILY PRN PRN 06/05/19 Metolazone [Zaroxolyn] 5 mg PO DAILY 06/05/19 Metoprolol Succinate [Toprol Xl] 25 mg PO DAILY 06/05/19 Nitroglycerin (INPATIENT USE) [Nitrostat] 0.4 mg SUBLINGUAL Q5M PRN 06/05/19 Omeprazole 40 mg PO DAILY 06/05/19 Polyethylene Glycol 3350 [Miralax] 17 gm PO DAILY 06/05/19 Potassium Chloride 20 meq PO BID 06/05/19 Simvastatin 20 mg PO QHS 06/05/19 Spironolactone 25 mg PO DAILY 06/05/19 Kechi, Disposable [Easy Touch Hypodermic Needle] 1 ea DAILY #10 dis.needle 06/09/19 Syringe, Disposable, 5 ml [Bulk Syringe] 1 ea DAILY #10 disp.syrin 06/09/19 Methylcellulose [Citrucel] 850 gm PO DAILY 06/29/19 Ertapenem Sod [Invanz] 1 gm IM DAILY #10 vial 07/02/19 Nystatin Powder [Mycostatin Powder] 1 applic TOPICAL BID #1 bottle 07/02/19 Following Prescrptions Were Given to Patient: Ertapenem Sod [Invanz] 1 gm IM DAILY #10 vial Prescription Printed Nystatin Powder [Mycostatin Powder] 1 applic TOPICAL BID #1 bottle Transmission Status: Received by [facility] Primary Care Physician: Rommel Arango MD [Primary Care Provider] - Please follow up with your Primary Care Physician in: within 1-2 weeks Please Follow Up With: Surekha Goodman MD When: within 1-2 weeks Please Follow Up With: Ruben Sellers MD When: in 2 weeks Disposition: Home with Home Health Minutes spent on discharge:: 40 Patient Condition:: Stable Medical Necessity - Tobacco Use Smoking Status: Former smoker Tobacco Use: Non-smoker Meaningful Use Info Meaningful Use Diagnoses (Choose all that apply): None applicable Code Visit Inpatient E&M: 49487 Disch Hosp
--- NOTE | 2019-07-02 15:18 | CASEMGMT ---
REGGIE QUEVEDO NOTE: Script for IM Ertapenem has been sent to [facility]. Call placed to [facility] pharmacist, who states prior authorization is not required, stating this may be d/t prior auth that was received for last script and dates of coverage. Will also need scripts for Lidocaine, syringes, and needles. Dr Khan made aware. To room to talk with pt. She is aware plans are for her to discharge home w/IM antibiotics and she is agreeable to this. She was made aware RN services from [facility] would be added for additional teaching/assistance with IM injections. Spoke w/Flavia, pharmacist @ [facility] who states she has spoken with pt's daughter re: cost of antibiotics, lidocaine, and supplies and that daughter states is agreeable to the amt quoted. Pt made aware. Rupal SOLARES RN CM
[2019-07-02 16:45] LABS: Bedside Glucose 299 mg/dL (70-110)
--- NOTE | 2019-07-05 15:46 | CASEMGMT ---
REGGIE DC PHONE CALL DC DATE: 07/02/19 DC Disposition: Home with [facility] Diagnosis on Discharge: UTI, Hypokalemia LACE/STRATA: 09/29 DC call deferred. Pt to be seen by [facility]. Giselle TROTTERN RN AC
== END 2019-07-02 17:34 | disposition home health service (06) | DRG 689 ==
LOC: ED 18:20 → MS3 22:34
PROVIDERS: Admitting Provider Hospitalist; Emergency Provider Emergency Medicine; Family Provider Family Medicine; PCP Family Medicine; Visit Provider Internal Medicine
DX: N39.0 Urinary tract infection, site not specified (principal); G93.41 Metabolic encephalopathy; J96.10 Chronic respiratory failure, unspecified whether with hypoxia or hypercapnia; R78.81 Bacteremia; N32.1 Vesicointestinal fistula; I50.20 Unspecified systolic (congestive) heart failure; E87.6 Hypokalemia; I11.0 Hypertensive heart disease with heart failure; I25.10 Atherosclerotic heart disease of native coronary artery without angina pectoris; Z16.12 Extended spectrum beta lactamase (ESBL) resistance; E66.01 Morbid (severe) obesity due to excess calories; E11.9 Type 2 diabetes mellitus without complications; B96.89 Other specified bacterial agents as the cause of diseases classified elsewhere; B96.20 Unspecified Escherichia coli [E. coli] as the cause of diseases classified elsewhere; Z68.38 Body mass index [BMI] 38.0-38.9, adult; Z87.891 Personal history of nicotine dependence; Z79.4 Long term (current) use of insulin; Z90.49 Acquired absence of other specified parts of digestive tract; Z95.1 Presence of aortocoronary bypass graft; Z95.5 Presence of coronary angioplasty implant and graft
CPT/HCPCS: 36415; 71045; 74176; 74177; 80048; 80053; 81001; 82962; 83605; 85025; 85610; 85730; 87040; 87077; 87086; 87088; 87186; 93005; 94640; 97162; 97166; 97530; 99285; J2185; J7050; Q9967; A4216

== ENCOUNTER → 2019-12-10 08:42 | Outpatient (CLI) | payer MEDICARE, OTHER, SELFPAY ==
[2019-09-22 08:23] VITALS: BMI 39.6
--- NOTE | 2019-12-10 08:44 | ECHOD_ITS ---
Reason For Study: murmur Procedure This was a 2D Doppler, Color Flow transthoracic echocardiogram. The study was technically limited. The study was technically difficult. Due to body habitus. Exam performed in department. Left Ventricle Normal LV size. The estimated ejection fraction is 55 %. Stage 1 diastolic dysfunction. No regional wall motion abnormalities noted. Atria The left atrium is moderately enlarged. Aortic Valve The aortic valve is not well visualized. Peak aortic valve gradient 28 mmHg. Mean aortic valve gradient 17 mmHg. Mild aortic stenosis. Pericardium/Pleural No pericardial effusion. Medication 22 gauge I.V. with prn adaptor inserted into right arm. Diluted definity 3.0ml given slow IV push to enhance endocardial definition. MMode/2D Measurements & Calculations LVIDd: 5.3 cm IVSd: 1.0 cm LVOT diam: 2.0 cm LVIDs: 3.8 cm LVPWd: 1.3 cm FS: 28.5 % LVOT area: 3.2 cm2 LAV(MOD-bp): 98.7 ml LA A4 area: 30.1 cm2 LAV(MOD-bp) Indexed: 49.0 ml/m2 LAV(MOD-sp2): 91.2 ml LAV(MOD-sp4): 95.5 ml Time Measurements MV dec time: 0.18 sec Doppler Measurements & Calculations MV E max josemanuel: 64.8 cm/sec Lat Peak E' Josemanuel: 6.8 cm/sec Med Peak E' Josemanuel: 5.2 cm/sec MV A max josemanuel: 89.1 cm/sec E/E' lat: 9.5 E/E' med: 12.4 MV E/A: 0.73 Ao V2 max: 265.2 cm/sec LV V1 max: 89.1 cm/sec SV(LVOT): 63.0 ml Ao max P.1 mmHg LV V1 max P.2 mmHg Ao V2 mean: 201.8 cm/sec LV V1 mean P.7 mmHg Ao mean P.6 mmHg LV V1 mean: 63.0 cm/sec Ao V2 VTI: 60.7 cm LV V1 VTI: 19.9 cm JOE(I,D): 1.0 cm2 JOE(V,D): 1.1 cm2 PA V2 max: 198.6 cm/sec PA V2 mean: 135.4 cm/sec PA V2 VTI: 40.7 cm Interpretation Summary Normal LV size. The estimated ejection fraction is 55 %. Stage 1 diastolic dysfunction. Mean aortic valve gradient 17 mmHg. Mild aortic stenosis. Contrast injection was performed. Ordering Physician: Long Jovel Referring Physician: Rommel Arango Performed By: Siobhan Slade, RADHA, RVT
== END ==
PROVIDERS: PCP Family Medicine; Referring Provider Internal Medicine Cardiovascular Disease; Visit Provider Internal Medicine Cardiovascular Disease
DX: I25.10 Atherosclerotic heart disease of native coronary artery without angina pectoris (principal)
CPT/HCPCS: 93306; Q9957; A4216; C8929

== ENCOUNTER 2020-01-23 11:15 | Inpatient (IN) | payer MEDICARE, OTHER, SELFPAY ==
[2019-09-22 08:23] VITALS: BMI 39.6
[2020-01-23] VITALS (17 sets, daily range): BP systolic 106–121; BP diastolic 50–68; PULSE 64–120; RESP 16–23; TEMP 36.6–37.4; O2SAT 88–99; BMI 38.4
--- NOTE | 2020-01-23 11:55 | CT_ITS ---
STUDY: CT ABDOMEN AND PELVIS WITHOUT CONTRAST REASON FOR EXAM: Female, 79 years old. Fever. Vomiting. RADIATION DOSAGE (If Supplied By Facility): CTDIvol = ( 18.41 ) mGy, DLP = ( 1002.80 ) mGycm TECHNIQUE: Transaxial images were obtained from the dome of the diaphragm to the symphysis pubis without oral contrast, and without intravenous contrast. Sagittal and coronal images were reconstructed. Individualized dose optimization techniques were used for this CT. COMPARISON: 07/01/2019 FINDINGS: Evaluation of the abdominal viscera is limited in the absence of intravenous contrast. There is atelectasis at the lung bases. The patient is status post sternotomy and coronary artery bypass. The patient is status post cholecystectomy. The liver demonstrates an unremarkable unenhanced appearance. The spleen is normal in size. The pancreas demonstrates an unremarkable unenhanced appearance. The adrenal glands are within normal limits. There are no renal or ureteral stones. There is no hydronephrosis. Normal visualized stomach. There is no bowel obstruction or inflammation. There are colonic diverticula without evidence of diverticulitis. The appendix is not visualized, but there are no findings to suggest acute appendicitis. There is a stable fat-containing ventral hernia. There is no bowel containing hernia. Again noted are small foci of air within the endometrial cavity which are of uncertain clinical significance. A fistula cannot be excluded. The aorta is normal in caliber. There are atherosclerotic calcifications noted in the aorta and its branches. There is no abdominal or pelvic free air, free fluid, fluid collection or lymphadenopathy. There are no destructive osseous lesions. There are stable degenerative changes noted in the spine. CT/Abdomen/Pelvis without Cont IMPRESSION: No bowel obstruction or inflammation. Colonic diverticula without evidence of diverticulitis. Redemonstration of small foci of air in the endometrial cavity which are of uncertain clinical significance. A fistula cannot be excluded. No urinary calculi. No hydronephrosis. Electronically Signed: Adolfo Dawson, at 13:23 EDT Tel , Service support ,
--- NOTE | 2020-01-23 11:56 | EKG12_ITS ---
Test Reason : SOB Blood Pressure : / mmHG Vent. Rate : 100 BPM Atrial Rate : 088 BPM P-R Int : 268 ms QRS Dur : 142 ms QT Int : 382 ms P-R-T Axes : 000 -32 140 degrees QTc Int : 492 ms Sinus rhythm with 1st degree A-V block with occasional Premature ventricular complexes Left axis deviation Left bundle branch block Abnormal ECG Confirmed by TERRENCE JULIAN, YADY ([id number]), fan mail editor STUART WASHINGTON ([id number]) on 01/24/2020 1:37:21 PM Referred By: VICTOR M Confirmed By:YADY OCAMPO MD
--- NOTE | 2020-01-23 11:56 | RAD_ITS ---
STUDY: X-RAY CHEST REASON FOR EXAM: Female, 79 years old. Shortness of breath. Fever. TECHNIQUE: Frontal view of the chest COMPARISON: 06/29/2019 FINDINGS: The lungs are clear. There are no pleural effusions. There is no pneumothorax. The heart is stable in size. Again noted are sternotomy wires. The visualized osseous structures are within normal limits. RAD/Chest 1 View (Portable) IMPRESSION: No acute thoracic pathology. Electronically Signed: Adolfo Dawson, at 13:28 EDT Tel , Service support ,
--- NOTE | 2020-01-23 11:57 | ED.DCSUM_ITS ---
History of Present Illness Chief Complaint: Shortness of Breath Narrative: Patient is a 79-year-old female who has been sick for roughly 1 week. She complains of generalized malaise. She complains of nausea. She vomited once approximately a week ago but not since that time. She denies any diarrhea. She does complain of epigastric abdominal pain. She states her throat feels dry but is not really sore or painful. No congestion or rhinorrhea. She does have a cough which is occasionally productive. She complains of feeling short of breath. She reports low-grade fever of roughly 100. Past Medical History - Allergies and Home Meds Allergies/Adverse Reactions: Allergies Iodinated Contrast Media [CONTRASTS] Adverse Reaction (Verified 01/23/20 11:23) [facility] Primary Care Physician: Rommel Arango MD [Primary Care Provider] - Past Medical History: - - Coronary artery disease, CABG, hypertension, hyperlipidemia Surgical History: colectomy - With colostomy and colostomy reversal, coronary bypass surgery, - - Coronary stents; 2 knee operations Smoking Status: Former smoker - Family History Maternal Family History: Family History (Last Reviewed 09/22/19 @ 11:[address] Long Jovel MD) Mother Heart disease Family History: Reports: Heart Disease, - - Her mother at 96 following complications of surgery from broken hip. Paternal Family History: Family History (Last Reviewed 09/22/19 @ 11:[address] Long Jovel MD) Mother Heart disease Family History: Reports: - - Patient do not know her paternal medical history. Review of Systems All systems negative except as indicated General: Reports: Fever Eyes: Denies: Visual changes - bilaterally ENT: Denies: Bilateral ear pain Cardiovascular: Denies: Chest pain Respiratory: Reports: Dyspnea, Cough, Sputum Gastrointestinal: Reports: Abdominal pain, Nausea, Vomiting. Denies: Diarrhea Musculoskeletal: Denies: Myalgias, Arthralgias Skin: Denies: Rash Neurological: Denies: Headache Hematologic: Denies: Easy bruising Physical Exam Vital Signs/Narrative: Vital Signs Temp Pulse Resp BP Pulse Ox 01/23/20 11:16 99.3 F H 88 16 121/50 H 92 Inital Vital Signs reviewed: Yes General: Well nourished, Obese Head: Normocephalic Eyes: EOMI ENT: Moist mucous membranes Neck: Supple Cardiovascular: Regular rate, Regular rhythm Respiratory: No distress, CTA bilaterally Abdomen: Soft, Tender - Upper abdominal tenderness no guarding no rebound Skin: Normal color Neurological: Alert Psychological: Normal affect Diagnostic/Tx/Re-eval Impressions Abdomen/Pelvis CT 01/23/20 11:55 IMPRESSION: No bowel obstruction or inflammation. Colonic diverticula without evidence of diverticulitis. Redemonstration of small foci of air in the endometrial cavity which are of uncertain clinical significance. A fistula cannot be excluded. No urinary calculi. No hydronephrosis. Electronically Signed: Adolfo Eunice, at 13:23 EDT Tel , Service support , Chest X-Ray 01/23/20 11:56 IMPRESSION: No acute thoracic pathology. Electronically Signed: Adolfo Dawson, at 13:28 EDT Tel , Service support , 01/23/20 11:55 Abdomen/Pelvis without Cont [CT] Stat 01/23/20 11:56 Chest 1 View (Portable) [RAD] Stat 01/23/20 12:05 Mucosa - Nasopharyngeal Influenza Types A,B Direct FA (ALICIA) - Final 01/23/20 12:05 Mucosa - Nasopharyngeal Rapid RSV (DFA) - Final Laboratory Results 01/23/20 01/23/20 01/23/20 11:45 11:45 11:45 WBC 18.9 H RBC 4.31 Hgb 12.9 Hct 39.0 MCV 90.5 MCH 29.9 MCHC 33.1 RDW Std Deviation 50.7 H RDW Coeff of Oscar 15.5 H Plt Count 178 MPV 12.3 H Immature Gran % (Auto) 1.200 H Neut % (Auto) 85.1 H Lymph % (Auto) 1.9 L [place] % (Auto) 11.4 H Eos % (Auto) 0.2 Baso % (Auto) 0.2 Absolute Neuts (auto) 16.1 H Absolute Lymphs (auto) 0.36 L Nucleated RBC % 0 Differential Comment COMMENT Diff Path Review May foll Platelet Estimate ADEQUATE Plt Morphology Comment LARGE RBC Morphology N CHROM Anisocytosis 1+ Sodium 134 L Potassium 2.4 L* Chloride 95 L Carbon Dioxide 28.0 Anion Gap 11 BUN 41 H Creatinine 1.65 H Estim Creat Clear Calc 23.24 Est GFR (MDRD) Af Amer 39 L Est GFR (MDRD) Non-Af 32 L BUN/Creatinine Ratio 24.8 H Glucose 419 H Lactic Acid 2.9 H* Calcium 9.0 Total Bilirubin 0.50 AST 17 ALT 23 Alkaline Phosphatase 108 Total Protein 7.2 Albumin 2.8 L Globulin 4.4 H Albumin/Globulin Ratio 0.6 L Lipase 110 Urine Color Urine Clarity Urine pH Ur Specific [place] Urine Protein Urine Glucose (UA) Urine Ketones Urine Occult Blood Urine Nitrite Urine Bilirubin Urine Urobilinogen Ur Leukocyte Esterase Urine RBC Urine WBC Ur Squamous Epith Cells Urine Bacteria Urine Mucus 01/23/20 12:25 WBC RBC Hgb Hct MCV MCH MCHC RDW Std Deviation RDW Coeff of Oscar Plt Count MPV Immature Gran % (Auto) Neut % (Auto) Lymph % (Auto) [place] % (Auto) Eos % (Auto) Baso % (Auto) Absolute Neuts (auto) Absolute Lymphs (auto) Nucleated RBC % Differential Comment Diff Path Review Platelet Estimate Plt Morphology Comment RBC Morphology Anisocytosis Sodium Potassium Chloride Carbon Dioxide Anion Gap BUN Creatinine Estim Creat Clear Calc Est GFR (MDRD) Af Amer Est GFR (MDRD) Non-Af BUN/Creatinine Ratio Glucose Lactic Acid Calcium Total Bilirubin AST ALT Alkaline Phosphatase Total Protein Albumin Globulin Albumin/Globulin Ratio Lipase Urine Color Yellow Urine Clarity Clear Urine pH 7.0 Ur Specific [place] 1.010 Urine Protein 30 H Urine Glucose (UA) 50 H Urine Ketones Negative Urine Occult Blood 250 H Urine Nitrite Negative Urine Bilirubin Negative Urine Urobilinogen Normal Ur Leukocyte Esterase 500 H Urine RBC 10-25 SEEN Urine WBC 25-50 SEEN Ur Squamous Epith Cells 0 SEEN Urine Bacteria 2+ Urine Mucus 0 SEEN - Medical Decision Making Patient underwent the above work-up. She presents both with GI and pulmonary symptoms. She underwent laboratory studies chest x-ray and CT of the abdomen. She was found to have leukocytosis and lactic acidosis and urinalysis is consistent with infection. She was given IV Rocephin. CT of the abdomen pelvis shows a small foci of air in the endometrium otherwise normal. Chest x-ray shows no acute pathology and influenza and RSV were negative. She was treated w ith IV fluids. She is hemodynamically stable but does meet criteria for severe sepsis. Patient will be discussed with the hospitalist and admitted. ED Disposition - Plan for ED Patient: Disposition: Acute Care Hospital [facility] Diagnosis: Severe sepsis, UTI (urinary tract infection), Shortness of breath Referrals: Rommel Arango MD [Primary Care Provider] -
[2020-01-23] MEDS: Ondansetron 4 MG/2 ML Vial IV (12:13)
[2020-01-23] MEDS: Morphine 4 MG/ML Syringe IV (12:14)
[2020-01-23 12:20] LABS: Absolute Lymphocyte Count 0.36 X10^3/uL (0.83-4.51); Absolute Neutrophil Count 16.1 X10^3/uL (2.0-7.7); Basophil# 0.04 X10^3/uL; Basophil% 0.2 % (0-1); Eosinophil# 0.04 X10^3/uL; Eosinophils% 0.2 % (0-5); Hemoglobin 12.9 g/dL (12.0-15.0); Lymphocyte # 0.36 X10^3/ul (4.0); Lymphocyte % 1.9 % (19-41); Mean Corp Hgb Conc 33.1 g/dL (32-36); Mean Corpuscular Hgb 29.9 pg (27.0-32.0); Mean Corpuscular Volume 90.5 fL (81-99); Mean Platelet Vol. 12.3 fl (6.2-12.0); Monocyte# 2.16 X10^3/uL; Monocyte% 11.4 % (0-10); NRBC Flagged by Analyzer 0 % (0-5); Neutrophil # 16.05 X10^3/uL (2.7-7.7); Neutrophil % 85.1 % (47-70); POSITIVE DIFFERENTIAL YES; Platelet Count 178 K/mm3 (150-450); RBC Distribution Width CV 15.5 % (11.6-14.6); RBC Distribution Width SD 50.7 fl (35.1-43.9); Red Blood Count 4.31 M/mm3 (4.2-5.4); White Blood Count 18.9 K/mm3 (4.4-11.0)
[2020-01-23 12:23] LABS: Differential Indicated SCAN CRITERIA MET
[2020-01-23 12:34] LABS: Mucous, Urine 0 SEEN /hpf (<or=2+); Squamous Epithelial Cells - UA 0 SEEN /hpf (5-10)
[2020-01-23 12:36] LABS: Color, Urine Yellow (Yellow); Glucose, Dipstick 50 mg/dl (Normal); Ketone-Dipstick Negative (Negative); Leukocyte Esterase-Dipstick 500 /ul (Negative); Nitrite-Dipstick Negative (Negative); Occult Blood-Urine 250 /ul (Negative); Protein-Dipstick 30 mg/dl (Negative); Urine Bilirubin Dipstick Negative (Negative); Urine Clarity Clear (Clear); Urine Urobilinogen Normal (Normal)
[2020-01-23 12:36] LABS: ALB/GLOB Ratio 0.6 RATIO (0.9-2.4); AST(SGOT) 17 U/L (15-37); Alanine Aminotransfer ALT/SGPT 23 U/L (13-56); Albumin, Serum 2.8 g/dL (3.2-5.0); Alkaline Phosphatase 108 U/L (45-117); Anion Gap 11 (5-15); BUN 41 mg/dL (7-18); BUN/Creat Ratio 24.8 RATIO (10-20); Chloride 95 mmol/L (98-107); Creatinine, Serum 1.65 mg/dL (0.55-1.02); EST Glomerular Filtration Rate 32 mL/min (>60); Est Glom Filt Rate - Afr Amer 39 mL/min (>60); Estimated Creatinine Clearance 23.24 ml/min; Globulin 4.4 g/dL (2.2-4.2); Glucose 419 mg/dL (74-106); Lipase 110 U/L (73-393); Potassium 2.4 mmol/L (3.5-5.1); Protein, Total 7.2 g/dL (6.4-8.2); Sodium Level 134 mmol/L (136-145)
[2020-01-23 12:44] LABS: Anisocytosis 1+; Platelet Morphology LARGE
[2020-01-23 12:45] LABS: Platelet Estimate ADEQUATE (ADEQ); Red Cell Morphology N CHROM NORMAL (NORM C&C)
[2020-01-23 12:51] LABS: Bacteria 2+ /hpf (None Seen); Red Blood Cells-Urine 10-25 SEEN /hpf (0-5); White Blood Cells 25-50 SEEN /hpf (0-5)
[2020-01-23 13:03] LABS: Lactic Acid 2.9 mmol/L (0.4-1.9)
[2020-01-23] MEDS: 0.9% Normal Saline 1,000 ML 999 ML IV (13:24)
[2020-01-23] MEDS: Potassium Chloride 10mEq/100mL 10 MEQ/100 ML IV.SOLN. 100 MEQ IV BOLUS ×4 (13:25→17:17)
--- NOTE | 2020-01-23 13:51 | CT_ITS ---
STUDY: CT CHEST WITHOUT CONTRAST REASON FOR EXAM: Female, 79 years old. Shortness of breath RADIATION DOSAGE (If Supplied By Facility): CTDIvol = ( 20.00 ) mGy, DLP = ( 674.64 ) mGycm TECHNIQUE: Transaxial imaging was performed without the administration of intravenous contrast material. Coronal and sagittal reformatted images were created. Individualized dose optimization techniques were used for this CT. COMPARISON: 06/04/2019 FINDINGS: There are no pulmonary infiltrates or pleural effusions. There are stable chronic increased interstitial markings. There is no pneumothorax. The heart and pericardium are within normal limits. The patient is status post sternotomy and coronary artery bypass. 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 There is no thoracic lymphadenopathy. There is no evidence of thoracic aortic aneurysm. Images through the upper abdomen demonstrate no significant abnormality. There are no destructive osseous lesions. CT/Chest without Contrast IMPRESSION: Stable chronic increased interstitial markings in the lungs. No pulmonary infiltrates or pleural effusions. Redemonstration of a right-sided aortic arch. Stable postsurgical changes from prior sternotomy and coronary artery bypass. Electronically Signed: Adolfo Dawson, at 15:21 EDT Tel , Service support ,
--- NOTE | 2020-01-23 14:31 | HP.PCM_ITS ---
History of Present Illness Date of Admission: 01/23/20 Chief Complaint: general malaise The patient is a 79 year old F with an extensive past medical history as outlined. She was admitted through the ED on 01/23/2020 with a complaint of generalized malaise which have been going on for a few days. Patient says she could not really describe how she felt apart from saying that she just felt generally unwell. On further questioning she admitted to nausea and one-time vomiting and admitted to fever but did not check her temperature at home. She denied any diarrhea and said that she had been short of breath but that was chronic on account of her COPD and her being on oxygen 3 to 4 L at home. She denies any exposure to any patient with coronavirus and says she has been stuck at home for the past 5 weeks because her children have asked her to quarantine herself because she is at high risk for coronavirus. On admission in the ED, temperature was 99.3 Fahrenheit with blood pressure 121/50, pulse rate of 88 and respiratory rate of 16. She was initially saturating at 88% on room air and went up to 99% on 2 L of oxygen. Chemistry showed lactic acid of 2.9 and potassium of 2.4 with sodium of 134 and creatinine of 1.65. CBC showed WBC of 18.9 hemoglobin of 12.9 with platelets of 178. Chest x-ray showed no acute cardiopulmonary pathology and abdominopelvic CT showed no bowel obstruction or inflammation and colonic diverticula without evidence of diverticulitis and redemonstration of small foci of air in the endometrial cavity which is of uncertain clinical significance. UA showed evidence of UTI. She has been admitted to be managed for sepsis due to UTI and hypokalemia. [] Past Medical History Past Medical History (Chronic Problems): Chronic Problems (Last Reviewed 09/22/19 @ 11:[address] Long Jovel MD) Atherosclerosis of coronary artery of [place] heart without angina pectoris (Chronic) Chronic systolic (congestive) heart failure (Chronic) Nonrheumatic aortic (valve) stenosis (Chronic) Non-ischemic cardiomyopathy (Chronic) Secondary pulmonary arterial hypertension (Chronic) Right bundle branch block (RBBB) (Chronic) Essential hypertension (Chronic) Hyperlipemia (Chronic) Medical History: Medical History (Last Reviewed 09/22/19 @ 11:[address] Long Jovel MD) Atherosclerosis of coronary artery of [place] heart without angina pectoris (Chronic) I25.10 Chronic systolic (congestive) heart failure (Chronic) I50.22 Nonrheumatic aortic (valve) stenosis (Chronic) I35.0 Non-ischemic cardiomyopathy (Chronic) I42.8 Secondary pulmonary arterial hypertension (Chronic) I27.21 Right bundle branch block (RBBB) (Chronic) I45.10 Essential hypertension (Chronic) I10 Hyperlipemia (Chronic) E78.[address] elevation myocardial infarction (STEMI) (Resolved) Onset Date: 04/2013 I25.2 Anxiety and depression F41.9, F32.9 Chronic respiratory failure J96.10 Diverticulosis K57.90 GERD (gastroesophageal reflux disease) K21.9 Hypothyroidism E03.9 Morbid obesity E66.01 Obstructive sleep apnea G47.33 Osteoarthritis M19.90 Type II diabetes mellitus E11.9 History of deep venous thrombosis Z86.718 History of pulmonary embolism Z86.711 Hypokalemia (Resolved) E87.6 Urinary tract infection (Resolved) N39.0 Bacteremia R78.81 Sepsis A41.9 Allergies Iodinated Contrast Media [CONTRASTS] Adverse Reaction (Verified 01/23/20 11:23) Hives Home Medications: Ambulatory Orders Medication Instructions Recorded Albuterol Aerosols [Ventolin 2.5 mg INHALATION Q4HWA.RT PRN 06/05/19 Aerosols] Allopurinol 100 mg PO DAILY 06/05/19 Aspirin [Aspirin, Baby] 81 mg PO DAILY@0800 06/05/19 Colchicine 0.6 mg PO PRN PRN 06/05/19 Fluoxetine HCl [Prozac] 40 mg PO DAILY 06/05/19 Folic Acid 1 mg PO DAILY 06/05/19 Insulin NPH Human Isophane 26 units SUBCUT BREAKFAST 06/05/19 [Humulin N] Insulin Regular, Human [Humulin R] 10 units SUBCUT QHS 06/05/19 Insulin Regular, Human [Humulin R] 16 units SUBCUT BREAKFAST 06/05/19 Isosorbide Mononitrate [Imdur] 60 mg PO BID 06/05/19 Levothyroxine [Synthroid] 75 mcg PO DAILY 06/05/19 Meclizine HCl [Antivert] 12.5 mg PO DAILY PRN PRN 06/05/19 Metoprolol Succinate [Toprol Xl] 25 mg PO DAILY 06/05/19 Nitroglycerin (INPATIENT USE) 0.4 mg SUBLINGUAL Q5M PRN 06/05/19 [Nitrostat] Omeprazole 40 mg PO DAILY 06/05/19 Polyethylene Glycol 3350 [Miralax] 17 gm PO DAILY 06/05/19 Potassium Chloride 20 meq PO BID 06/05/19 Simvastatin 20 mg PO QHS 06/05/19 Methylcellulose [Citrucel] 850 gm PO DAILY 06/29/19 [place], Disposable [Easy Touch 1 ea MC DAILY #10 dis.needle 07/02/19 Hypodermic Needle] Nystatin Powder [Mycostatin Powder] 1 applic TOPICAL BID #1 bottle 07/02/19 Syringe, Disposable, 5 ml [Bulk 1 ea MC DAILY #10 disp.syrin 07/02/19 Syringe] cranberry 500 mg capsule 500 mg PO DAILY cap 09/22/19 furosemide 40 mg tablet 40 mg PO DAILY #180 tab 09/22/19 insulin NPH isoph U-100 human 100 20 unit SUBCUT QHS ml 09/22/19 unit/mL subcutaneous suspension Surgical History: Surgical History (Last Reviewed 09/22/19 @ 11:[address] Long Jovel MD) H/O coronary artery bypass surgery (Resolved) Onset Date: 01/08/05 Z95.1 CABG x 2: DAVIDSON-LAD, SVG-OM1 01/08/2005 History of coronary artery stent placement (Resolved) Onset Date: 08/02/15 Z95.5 [id number]-YSU-Tpavmxx and Prox RCA w/ 4.5 x 28 mm VeriFLEX Stent 06/16/2014; [id number]-UTG-Pdoj RCA w/ 3.5 x 32 mm Promus Premier 11/02/2014; PCI-Cutting Balloon Angioplasty-Prox ISR-RCA 08/02/2015 History of bilateral knee replacement Z96.653 History of cholecystectomy Z90.49 History of colectomy Z90.49 History of herniorrhaphy Z98.890, Z87.19 Surgical History: colectomy - With colostomy and colostomy reversal, coronary bypass surgery, - - Coronary stents; 2 knee operations Lives: With Family Smoking Status: Former smoker Alcohol: None Drugs: None - *Family History Maternal Family History: Family History (Last Reviewed 09/22/19 @ 11:[address] Long Jovel MD) Mother Heart disease History Items: Heart Disease, - - Her mother at 96 following complications of surgery from broken hip. Paternal Family History: Family History (Last Reviewed 09/22/19 @ 11:[address] Long Jovel MD) Mother Heart disease History Items: - - Patient do not know her paternal medical history. Review of Systems Constitutional: Reports: Anorexia, Malaise, Weakness, Fatigue. Denies: Chills, Fever, Weight Change Eyes: Denies: Blurred vision HEENT: Denies: Head Aches, Sinus Congestion, Sinus Drainage Cardiovascular: Denies: Chest Pain, Edema, Heaviness, Light Headedness, Orthopnea, Palpitations, Paroxysmal Noc. Dyspnea, Syncope Respiratory: Reports: Cough, Shortness of Breath - is chronic, Shortness of breath upon exertion, Wheezing. Denies: Sputum production Gastrointestinal: Denies: Abdominal Pain, Nausea, Vomiting Genitourinary: Denies: Dysuria Musculoskeletal: Denies: Joint Pain, Joint Tenderness Skin: Denies: Rash, Wounds Neurological: Denies: Numbness, Tingling, Focal weakness Psychiatric: Denies: Anxiety, Depression, Homicidal Ideations, Suicidal Ideations Hematologic/ Lymphatic: Denies: Easy Bruising, Easy Bleeding VTE Information - Inpt Only VTE Present on Admission: No VTE Pharm Prophylaxis ordered?: Yes Patient Problems: Active and Suspected Problems (Last Reviewed 09/22/19 @ 11:[address] Long Jovel MD) Severe sepsis (Acute) UTI (urinary tract infection) (Acute) Shortness of breath (Acute) - Physical Exam Vitals/I&O's: Vital Signs Temp Pulse Resp BP Pulse Ox 98.7 F 89 18 111/60 99 01/23/20 14:20 01/23/20 14:20 01/23/20 14:20 01/23/20 14:20 01/23/20 14:20 Oxygen Flow Rate (L/min) 2 Oxygen Delivery Method Nasal Cannula Weight: 217 lb Body Mass Index (BMI) 38.4 General: Alert, Oriented x3, Cooperative, No apparent distress HEENT: Atraumatic, PERRLA, EOMI, Normocephalic Oral: Dry Mucosa Neck: Supple, No JVD, Negative Carotid Bruits Lungs: Clear to auscultation, Normal air movement, No rhonchi, No wheeze, No rales Cardiovascular: Regular rate, Regular Rhythm, Normal S1, Normal S2, No murmurs Abdomen: Bowel Sounds Present, Soft, Non Tender, Non-Distended, No Hepato- splenomegaly Extremities: No clubbing, No cyanosis, No edema, Capillary Refill Less than 3 Seconds Skin: No rashes, No breakdown Musculoskeletal: No Tenderness to Palpation of Joints or Extremities Lymphatic: No Cervical, Supraclavicular, or Inguinal Adenopathy Neurological: Cranial nerves II-XII grossly intact, Neuro grossly intact, Motor Exam 5/5 strength throughout Psych/Mental Status: Normal Affect, Appropriate, Alert and oriented to time, place, person, mood and affect Microbiology Past 72 Hours 01/23/20 12:05 Mucosa - Nasopharyngeal Influenza Types A,B Direct FA (ALICIA) - Final 01/23/20 12:05 Mucosa - Nasopharyngeal Rapid RSV (DFA) - Final Laboratory Results 01/23/20 11:45: WBC 18.9 H, RBC 4.31, Hgb 12.9, Hct 39.0, MCV 90.5, MCH 29.9, MCHC 33.1, RDW Std Deviation 50.7 H, RDW Coeff of Oscar 15.5 H, Plt Count 178, MPV 12.3 H, Immature Gran % (Auto) 1.200 H, Neut % (Auto) 85.1 H, Lymph % (Auto) 1.9 L, [place] % (Auto) 11.4 H, Eos % (Auto) 0.2, Baso % (Auto) 0.2, Absolute Neuts (auto) 16.1 H, Absolute Lymphs (auto) 0.36 L, Nucleated RBC % 0, Differential Comment COMMENT, Diff Path Review May foll, Platelet Estimate ADEQUATE, Plt Morphology Comment LARGE, RBC Morphology N CHROM, Anisocytosis 1+ 01/23/20 11:45: Sodium 134 L, Potassium 2.4 L*, Chloride 95 L, Carbon Dioxide 28.0, Anion Gap 11, BUN 41 H, Creatinine 1.65 H, Estim Creat Clear Calc 23.24, Est GFR (MDRD) Af Amer 39 L, Est GFR (MDRD) Non-Af 32 L, BUN/Creatinine Ratio 24.8 H, Glucose 419 H, Calcium 9.0, Total Bilirubin 0.50, AST 17, ALT 23, Alkaline Phosphatase 108, Total Protein 7.2, Albumin 2.8 L, Globulin 4.4 H, Albumin/Globulin Ratio 0.6 L, Lipase 110 01/23/20 11:45: Lactic Acid 2.9 H* 01/23/20 12:25: Urine Color Yellow, Urine Clarity Clear, Urine pH 7.0, Ur Specific [place] 1.010, Urine Protein 30 H, Urine Glucose (UA) 50 H, Urine Ketones Negative, Urine Occult Blood 250 H, Urine Nitrite Negative, Urine Bilirubin Negative, Urine Urobilinogen Normal, Ur Leukocyte Esterase 500 H, Urine RBC 10-25 SEEN, Urine WBC 25-50 SEEN, Ur Squamous Epith Cells 0 SEEN, Urine Bacteria 2+, Urine Mucus 0 SEEN Diagnostic Data Abdomen/Pelvis CT 01/23/20 11:55 IMPRESSION: No bowel obstruction or inflammation. Colonic diverticula without evidence of diverticulitis. Redemonstration of small foci of air in the endometrial cavity which are of uncertain clinical significance. A fistula cannot be excluded. No urinary calculi. No hydronephrosis. Electronically Signed: Adolfo Dawson, at 13:23 EDT Tel , Service support , Chest X-Ray 01/23/20 11:56 IMPRESSION: No acute thoracic pathology. Electronically Signed: Adolfo Dawson, at 13:28 EDT Tel , Service support , Current Medications Potassium Chloride () 10 meq in 100 mls @ 100 mls/hr IV BOLUS Q1H AME Stop: 01/23/20 16:44 Last Admin: 01/23/20 13:25 Dose: 100 mls/hr Documented by: Assessment/Plan All Active Problems (Last Reviewed 09/22/19 @ 11:[address] Long Jovel MD) Severe sepsis (Acute) UTI (urinary tract infection) (Acute) Shortness of breath (Acute) H/O coronary artery bypass surgery (Resolved 01/08/05) History of coronary artery stent placement (Resolved 08/02/15) History of ST elevation myocardial infarction (STEMI) (Resolved 04/2013) Hypokalemia (Resolved) Urinary tract infection (Resolved) 79-year-old female admitted with a complaint of malaise malaise and mild shortness of breath. 1. Sepsis due to UTI * SIRS criteria is /4 with elevated lactic acid of 2.9. * admit to PCU with telemetry * patient was noted to be saturating at 88% on room air on admission; however, patient has chronic hypoxic respiratory failure, and was on room air at time of admission. She usually wears 2-3L of oxygen at home,and SOB improved to 99% once she was placed on 2L of oxygen. * wbc is elevated at 18.9 * influenza screen and RSV screen was negative * UA showed evidence of UTI * start IV ceftriaxone * Get blood cultures and urine cultures. * Hydrate gently with IV fluid normal saline at 150 cc/h x 2 bags. * I do not think that there is any clear indication to test this patient for covered now as her hypoxia was due to her not being on her home oxygen. Patient does not really have much of a cough and shortness of breath is pretty much at her baseline. * 2. Hypokalemia: Potassium is 3.4. Replace and monitor. 3. Lactic acidosis: Lactic acid is 2.9. Likely due to sepsis. Will hydrate and trend per sepsis protocol. 4. Chronic hypoxic respiratory failure due to COPD: On breathing treatments with bronchodilators. Maintain oxygen 2 to 3 L and titrate to maintain sa turation above 90% 5. Type 2 diabetes mellitus: On NPH insulin 26 units in the morning and 20 units in the evening. Insulin sliding scale. Accu-Cheks AC at bedtime. 6. Hyperlipidemia: On statin 7. Hypothyroidism: On Synthroid. 8. Hypertension: On metoprolol 9. PAL: On CPAP at night. 10. Heart failure with reduced ejection fraction: Not in exacerbation. Stable. on lasix 11. Anxiety depression:on fluoxetine 12. CAD s/p CABG: on aspirin, and imdur as well as metoprolol 13. CKD 3: Cr is 1.65, with baseline ~ 1.3. Being gently hydrated with IVF DVT prophylaxis: Lovenox, renally dosed CODE STATUS: Full code * Patient counseled extensively about different types of CODE STATUS including full code, DNR CCA and DNR CCA. Patient elects to be full code. * Total emwi-lu-[id number] time 16 minutes. Inpatient E&M: 71884 Init Hosp L3 Procedures: 74190 Advncd Care Plan 30 Min
[2020-01-23] MEDS: Ceftriaxone 1 GM/50 ML BAG IV (15:11)
[2020-01-23 16:45] LABS: Reflex Lactate? Y
[2020-01-23] MEDS: 0.9% Normal Saline 1,000 ML 150 ML IV (17:13)
[2020-01-23 17:16] LABS: Bedside Glucose 344 mg/dL (70-110)
[2020-01-23] MEDS: Insulin Lispro 100 UNIT/ML INSULN.PEN SC ×2 (17:17→22:45)
[2020-01-23] MEDS: Glucerna Shake 120 ML LIQUID PO ×2 (17:18→22:51)
[2020-01-23 17:28] LABS: Lactic Acid 1.6 mmol/L (0.4-1.9)
[2020-01-23] MEDS: Acetaminophen 325 MG Tablet 650 MG PO (19:17)
[2020-01-23] MEDS: Insulin NPH Human 100 UNITS/ML PEN 20 UNITS SC (22:46)
[2020-01-23] MEDS: Atorvastatin Calcium 10 MG Tablet PO (22:47)
[2020-01-23] MEDS: Isosorbide Mononitrate 60 MG Tablet PO (22:47)
[2020-01-24] VITALS (10 sets, daily range): BP systolic 113–132; BP diastolic 50–64; PULSE 82–101; RESP 18–21; TEMP 36.7–36.9; O2SAT 97–99
--- NOTE | 2020-01-24 00:21 | PCM.HOSP.N ---
Hospitalist Note Patient with prelim blood culture of anaerobic bottle shows gram-negative rods. Earlier urine culture was positive of ESBL E. coli ortega resistance. Therefore, antibiotic changed from ceftriaxone to meropenem.
[2020-01-24] MEDS: 0.9% Normal Saline 1,000 ML 100 ML IV (00:56)
[2020-01-24 03:11] LABS: Bedside Glucose 334 mg/dL (70-110)
[2020-01-24] MEDS: Acetaminophen 325 MG Tablet 650 MG PO ×2 (04:13→16:15)
--- NOTE | 2020-01-24 05:19 | EKG12_ITS ---
Test Reason : PVC'S Blood Pressure : / mmHG Vent. Rate : 088 BPM Atrial Rate : 088 BPM P-R Int : 188 ms QRS Dur : 144 ms QT Int : 426 ms P-R-T Axes : 078 -60 078 degrees QTc Int : 515 ms Sinus rhythm with frequent Premature ventricular complexes Left axis deviation Non-specific intra-ventricular conduction block Abnormal ECG When compared with ECG of 29-JUN-2019 18:40, Non-specific intra-ventricular conduction block has replaced Right bundle branch block Confirmed by TERRENCE JULIAN, YADY ([id number]), editorial manager LYNETTE FERNANDO ([id number]) on 01/25/2020 9:24:49 AM Referred By: DR OCHOA Confirmed By:YADY OCAMPO MD
[2020-01-24] MEDS: Levothyroxine 75 MCG Tablet PO (06:12)
[2020-01-24] MEDS: Enoxaparin 30 MG/0.3 ML Syringe SC (06:12)
[2020-01-24 06:57] LABS: Absolute Lymphocyte Count 0.77 X10^3/uL (0.83-4.51); Absolute Neutrophil Count 13.5 X10^3/uL (2.0-7.7); Basophil# 0.08 X10^3/uL; Basophil% 0.5 % (0-1); Eosinophil# 0.15 X10^3/uL; Eosinophils% 0.9 % (0-5); Hematocrit 35.8 % (37-47); Hemoglobin 11.7 g/dL (12.0-15.0); Lymphocyte # 0.77 X10^3/ul (4.0); Lymphocyte % 4.4 % (19-41); Mean Corp Hgb Conc 32.7 g/dL (32-36); Mean Corpuscular Hgb 29.3 pg (27.0-32.0); Mean Corpuscular Volume 89.5 fL (81-99); Mean Platelet Vol. 11.8 fl (6.2-12.0); Monocyte# 2.85 X10^3/uL; Monocyte% 16.4 % (0-10); NRBC Flagged by Analyzer 0 % (0-5); Neutrophil # 13.46 X10^3/uL (2.7-7.7); Neutrophil % 77.2 % (47-70); POSITIVE DIFFERENTIAL YES; Platelet Count 157 K/mm3 (150-450); RBC Distribution Width CV 15.7 % (11.6-14.6); RBC Distribution Width SD 51.8 fl (35.1-43.9); White Blood Count 17.4 K/mm3 (4.4-11.0)
[2020-01-24 06:58] LABS: Differential Indicated SCAN CRITERIA MET
[2020-01-24 07:27] LABS: Anion Gap 9 (5-15); BUN 40 mg/dL (7-18); BUN/Creat Ratio 24.4 RATIO (10-20); Chloride 98 mmol/L (98-107); Creatinine, Serum 1.64 mg/dL (0.55-1.02); EST Glomerular Filtration Rate 32 mL/min (>60); Est Glom Filt Rate - Afr Amer 39 mL/min (>60); Estimated Creatinine Clearance 23.39 ml/min; Glucose 260 mg/dL (74-106); Potassium 2.7 mmol/L (3.5-5.1); Sodium Level 133 mmol/L (136-145)
[2020-01-24 07:35] LABS: Magnesium 1.6 mg/dL (1.6-2.6); Phosphorus 2.4 mg/dL (2.5-4.9)
[2020-01-24 07:37] LABS: Differential Comment SCANNED
[2020-01-24] MEDS: Isosorbide Mononitrate 60 MG Tablet PO ×2 (08:05→21:38)
[2020-01-24] MEDS: Pantoprazole Sodium 40 MG Tablet PO (08:05)
[2020-01-24] MEDS: Methylcellulose 2 GM Bottle PO (08:05)
[2020-01-24] MEDS: Allopurinol 100 MG Tablet PO (08:05)
[2020-01-24] MEDS: Metoprolol(XL)Succ 25 MG Tablet PO (08:05)
[2020-01-24] MEDS: Polyethylene Glycol 3350 17 GM PACKET PO (08:05)
[2020-01-24] MEDS: Folic Acid 1 MG Tablet PO (08:05)
[2020-01-24] MEDS: Glucerna Shake 120 ML LIQUID PO (08:06)
[2020-01-24] MEDS: FLUoxetine 20 MG Capsule 40 MG PO (08:06)
[2020-01-24] MEDS: Aspirin 81 MG TAB.CHEW PO (08:06)
[2020-01-24] MEDS: Insulin Lispro 100 UNIT/ML INSULN.PEN SC ×4 (08:08→21:49)
[2020-01-24] MEDS: Insulin NPH Human 100 UNITS/ML PEN 26 UNITS SC (08:08)
[2020-01-24 08:36] LABS: Bedside Glucose 260 mg/dL (70-110)
--- NOTE | 2020-01-24 11:22 | CASEMGMT ---
RN CM Assessment Note Presentation: Sepsis due to UTI Intro role of CM and purpose of RN CM assessment to patient via phone to hospital room. Pt answered, is awake, alert and able to participate in assessment. Demographics, PCP and Pharmacy verified. Pt states she lives alone, generally does well at home. RN CM discussed PT/OT recommendation for further therapy and pt is agreeable to have [facility] provide these services. Pt was active with SN already. -Pt plans to return home on dc. PCP: Dr. Arango Specialists: Dr. Jovel Preferred Pharmacy: [facility] Insurance: [facility] Prescription Benefit: yes LNOK : daughter, Steff Betancourt Living Arrangements: Pt lives alone in one story home. 2 steps into home. Independent with meals, family does driving, Pt states her daughter can assist with bathing, did not feel she needed an aide. Transportation: family drives DME: Wheeled walker, raised toilet seat, grab bars, medical alert, walk in tub.Per OT notes, pt is SBA or min assist with ADL's. -Home Oxygen. Pt states wears 2-3L. States she has concentrator only at home and no portability. States I don't want those tanks in my place, I don't trust them. Pt was unable to tell CM which oxygen company she uses. Presently is 97% on 2L. HHC: Pt has [facility] SN per Florinda @ [facility]. Patient DC goals: Home DC PLAN: Anticipate Home with [facility] SN,PT/OT. RN CM advised to contact cm for any concerns/needs that may arise. Giselle SOLARES RN ACM
[2020-01-24 11:49] LABS: Pathologist Review Reviewed
--- NOTE | 2020-01-24 11:56 | CASEMGMT ---
RN CM Assessment Note Presentation: Sepsis due to UTI Intro role of CM and purpose of RN CM assessment to patient via phone to hospital room. Pt answered, is awake, alert and able to participate in assessment. Demographics, PCP and Pharmacy verified. Pt states she lives alone, generally does well at home. RN CM discussed PT/OT recommendation for further therapy and pt is agreeable to have [facility] provide these services. -Pt plans to return home on dc. PCP: Dr. Arango Specialists: Dr. Jovel Preferred Pharmacy: [facility] Insurance: [facility] Prescription Benefit: yes LNOK : daughter, Steff Betancourt Living Arrangements: Pt lives alone in one story home. 2 steps into home. Independent with meals, family does driving, Pt states her daughter can assist with bathing, did not feel she needed an aide. Transportation: family drives DME: Wheeled walker, raised toilet seat, grab bars, medical alert, walk in tub.Per OT notes, pt is SBA or min assist with ADL's. -Home Oxygen. Pt states wears 2-3L. States she has concentrator only at home and no portability. States I don't want those tanks in my place, I don't trust them. Pt was unable to tell CM which oxygen company she uses. Presently is 97% on 2L. HHC:[facility] ordered for SN, PT/OT on dc. Patient DC goals: Home DC PLAN: Anticipate Home with [facility] SN,PT/OT. RN CM advised to contact cm for any concerns/needs that may arise. Giselle SOLARES RN ACM
[2020-01-24 12:00] LABS: Bedside Glucose 217 mg/dL (70-110)
--- NOTE | 2020-01-24 12:31 | PN_ITS ---
Patient Problems: Active and Suspected Problems (Last Reviewed 09/22/19 @ 11:[address] Long Jovel MD) Severe sepsis (Acute) UTI (urinary tract infection) (Acute) Shortness of breath (Acute) Reason for Visit: UTI Subjective: Feels better overall. No new events. Vitals/I&O's: Vital Signs Temp Pulse Resp BP Pulse Ox 36.9 C 89 18 119/59 L 99 01/24/20 10:09 01/24/20 10:09 01/24/20 10:09 01/24/20 10:09 01/24/20 10:49 Oxygen Flow Rate (L/min) 3 Oxygen Delivery Method Nasal Cannula Weight: 98.43 kg Body Mass Index (BMI) 38.4 Intake and Output for Last 24 Hours 01/22/20 01/23/20 01/24/20 23:59 23:59 23:59 Intake Total 2280.33 / 2280.33 2992 / 2992 Output Total 900 / 900 640 / 640 Balance 1380.33 / 1380.33 2352 / 2352 General: Alert, No apparent distress HEENT: Atraumatic, Normocephalic Oral: Moist Mucosa, No Gingival or Mucosal Lesions/ Ulcerations Neck: No Nodes, Trachea Midline Lungs: Clear to auscultation, Normal air movement, No rhonchi, No wheeze, No rales, Diminished Cardiovascular: Regular rate, Regular Rhythm, Normal S1, Normal S2 Abdomen: Bowel Sounds Present, Soft, Non Tender, Non-Distended, No Hepato- splenomegaly Extremities: No edema, No Calf Tenderness Microbiology Past 72 Hours 01/23/20 13:50 Blood Culture (Wb) - Right Hand Blood Culture - Preliminary 01/23/20 11:45 Blood Culture (Wb) - Anticubital Left Blood Culture - Preliminary 01/23/20 12:05 Mucosa - Nasopharyngeal Influenza Types A,B Direct FA (ALICIA) - Final 01/23/20 12:05 Mucosa - Nasopharyngeal Rapid RSV (DFA) - Final Laboratory Results 01/23/20 11:45: Differential Comment COMMENT, Diff Path Review Reviewed, Platelet Estimate ADEQUATE, Plt Morphology Comment LARGE, RBC Morphology N CHROM, Anisocytosis 1+ 01/23/20 11:45: Sodium 134 L, Potassium 2.4 L*, Chloride 95 L, Carbon Dioxide 28.0, Anion Gap 11, BUN 41 H, Creatinine 1.65 H, Estim Creat Clear Calc 23.24, Est GFR (MDRD) Af Amer 39 L, Est GFR (MDRD) Non-Af 32 L, BUN/Creatinine Ratio 24.8 H, Glucose 419 H, Calcium 9.0, Total Bilirubin 0.50, AST 17, ALT 23, Alkaline Phosphatase 108, Total Protein 7.2, Albumin 2.8 L, Globulin 4.4 H, Albumin/Globulin Ratio 0.6 L, Lipase 110 01/23/20 11:45: Lactic Acid 2.9 H* 01/23/20 12:25: Urine Color Yellow, Urine Clarity Clear, Urine pH 7.0, Ur Specific [place] 1.010, Urine Protein 30 H, Urine Glucose (UA) 50 H, Urine Ketones Negative, Urine Occult Blood 250 H, Urine Nitrite Negative, Urine Bilirubin Negative, Urine Urobilinogen Normal, Ur Leukocyte Esterase 500 H, Urine RBC 10-25 SEEN, Urine WBC 25-50 SEEN, Ur Squamous Epith Cells 0 SEEN, Urine Bacteria 2+, Urine Mucus 0 SEEN 01/23/20 16:45: Troponin I 0.054 H 01/23/20 16:45: Lactic Acid 1.6 01/23/20 16:47: POC Glucose 344 H 01/23/20 19:45: Troponin I 0.061 H 01/23/20 22:42: POC Glucose 334 H 01/23/20 23:00: Troponin I 0.053 H 01/24/20 06:16: WBC 17.4 H, RBC 4.00 L, Hgb 11.7 L, Hct 35.8 L, MCV 89.5, MCH 29.3, MCHC 32.7, RDW Std Deviation 51.8 H, RDW Coeff of Oscar 15.7 H, Plt Count 157, MPV 11.8, Immature Gran % (Auto) 0.600, Neut % (Auto) 77.2 H, Lymph % (Auto) 4.4 L, [place] % (Auto) 16.4 H, Eos % (Auto) 0.9, Baso % (Auto) 0.5, Absolute Neuts (auto) 13.5 H, Absolute Lymphs (auto) 0.77 L, Nucleated RBC % 0, Differential Comment SCANNED, Diff Path Review February01/24/20 06:16: Sodium 133 L, Potassium 2.7 L*, Chloride 98, Carbon Dioxide 26.0, Anion Gap 9, BUN 40 H, Creatinine 1.64 H, Estim Creat Clear Calc 23.39, Est GFR (MDRD) Af Amer 39 L, Est GFR (MDRD) Non-Af 32 L, BUN/Creatinine Ratio 24.4 H, Glucose 260 H, Calcium 8.0 L 01/24/20 06:16: Phosphorus 2.4 L, Magnesium 1.6 01/24/20 08:03: POC Glucose 260 H 01/24/20 11:51: POC Glucose 217 H Current Medications Acetaminophen (Tylenol) 650 mg PO Q6H PRN PRN PRN Reason: Pain Score 1-10/Temp > 100.7 F Last Admin: 01/24/20 04:13 Dose: 650 mg Documented by: [facility] Last Admin: 01/24/20 08:05 Dose: 100 mg Documented by: Aspirin (Aspirin, Baby) 81 mg PO DAILY@0800 [facility] Last Admin: 01/24/20 08:06 Dose: 81 mg Documented by: Atorvastatin Calcium (Lipitor) 10 mg PO QHS [facility] Last Admin: 01/23/20 22:47 Dose: 10 mg Documented by: Colchicine (Colchicine) 0.6 - 1.2 mg PO Q1H PRN PRN Reason: gout Enoxaparin Sodium (Lovenox) 30 mg SC DAILY@0600 [facility] Last Admin: 01/24/20 06:12 Dose: 30 mg Documented by: Fluoxetine HCl (Prozac) 40 mg PO DAILY [facility] Last Admin: 01/24/20 08:06 Dose: 40 mg Documented by: Folic Acid (Folic Acid) [facility] Last Admin: 01/24/20 08:05 Dose: 1 mg Documented by: Glucagon () 1 mg IM .X1 PRN PRN Reason: Hypoglycemia Dextrose (Dextrose 10%-Water) 250 mls @ 999 mls/hr IV .Q16M PRN; Protocol PRN Reason: HYPOGLYCEMIA Meropenem 1 gm/ Sodium (Chloride) 120 mls @ 33 mls/hr IV Q12 [facility] Last Admin: 01/24/20 09:55 Dose: 33 mls/hr Documented by: Insulin Human Lispro (Humalog Kwikpen (Bkc)) 0 unit SC ACHS [facility]; Protocol Last Admin: 01/24/20 11:53 Dose: 2 units Documented by: Insulin Human NPH (Humulin N (Bkc)) 20 units SC QHS [facility] Last Admin: 01/23/20 22:46 Dose: 20 u Documented by: Insulin Human NPH (Humulin N (Bkc)) 26 units SC BREAKFAST [facility] Last Admin: 01/24/20 08:08 Dose: 26 u Documented by: Isosorbide Mononitrate (Imdur) 60 mg PO BID [facility] Last Admin: 01/24/20 08:05 Dose: 60 mg Documented by: Levothyroxine Sodium (Synthroid) 75 mcg PO DAILY@0600 [facility] Last Admin: 01/24/20 06:12 Dose: 75 mcg Documented by: Meclizine HCl (Antivert) 12.5 mg PO DAILY PRN PRN PRN Reason: DIZZINESS Methylcellulose (Citrucel) 2 gm PO DAILY [facility] Last Admin: 01/24/20 08:05 Dose: 2 gm Documented by: Metoprolol Succinate (Toprol Xl (Beta Dom)) 25 mg PO DAILY [facility] Last Admin: 01/24/20 08:05 Dose: 25 mg Documented by: Nitroglycerin (Nitrostat) 0.4 mg SUBLINGUAL Q5M PRN PRN Reason: CARDIAC/CHEST PAIN Nutritional Formula (Lactose Free) (Glucerna Shake) 120 ml PO 4X/DAY [facility] Last Admin: 01/24/20 08:06 Dose: 120 ml Documented by: Nystatin (Mycostatin Powder) 1 applic TOPICAL BID [facility]; Protocol Last Admin: 01/24/20 09:37 Dose: Not Given Documented by: Ondansetron HCl (Zofran) 4 mg IV Q8H PRN PRN PRN Reason: NAUSEA/VOMITING Pantoprazole Sodium (Protonix) 40 mg PO DAILY [facility] Last Admin: 01/24/20 08:05 Dose: 40 mg Documented by: Polyethylene Glycol (Miralax) 17 gm PO DAILY [facility] Last Admin: 01/24/20 08:05 Dose: 17 gm Documented by: Potassium Chloride (K-Dur) 20 meq PO BID [facility] Last Admin: 01/24/20 08:06 Dose: 20 meq Documented by: Sodium Chloride () 10 - 40 ml IV UD PRN PRN Reason: SALINE FLUSH STROKE Vital Signs/Narrative: Vital Signs Temp Pulse Resp BP Pulse Ox 01/24/20 10:49 99 01/24/20 10:09 36.9 C 89 18 119/59 L 97 Medical Necessity - Tobacco Use Smoking Status: Former smoker Assessment/Plan All Active Problems (Last Reviewed 09/22/19 @ 11:[address] 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 UTI: on meropenem. in June had a MDR E. coli. adjust antibiotics accordingly based on final culture results. 2. Bacteremia: prelim GNRs. Likely / #1. 3. Severe sepsis: 2/4 SIRS criteria met on admission plus lactic acid level of 2.6. improving. 2/ above. Received IVF. 4. Elevated troponins: trivially elevated: 0.054, 0.061, 0.053. Echo on 12/10 showed an EF of 55%, mild . Likely due to CKD +/-demand from above. No additional work up at this time, unless condition changes to warrant it. 5. CKD3: overall worse from 2019. Stable from 01/22. Monitor. 6. Hypokalemia: replace. complicated by hypomagnesemia. 7. Hypomagnesemia: replace. 8. DM2: poor control. elevated. on NPH. resume prandial insulin for improved control. 9. VTE proph: LMWH. Inpatient E&M: 77887 Subs Hosp L2
[2020-01-24] MEDS: Insulin Lispro 100 UNIT/ML INSULN.PEN 10 UNIT SC (16:13)
[2020-01-24 16:35] LABS: Bedside Glucose 200 mg/dL (70-110)
[2020-01-24] MEDS: 0.9% Saline Lock 10 ML Syringe IV (21:37)
[2020-01-24] MEDS: Atorvastatin Calcium 10 MG Tablet PO (21:38)
[2020-01-24] MEDS: Nystatin Powder 15gm Bottle 1 APPLIC TOPICAL (21:38)
[2020-01-24] MEDS: Insulin NPH Human 100 UNITS/ML PEN 20 UNITS SC (21:50)
[2020-01-24 22:15] LABS: Bedside Glucose 179 mg/dL (70-110)
[2020-01-25] VITALS (8 sets, daily range): BP systolic 111–122; BP diastolic 47–57; PULSE 66–75; RESP 16; TEMP 36.6–36.8; O2SAT 97–100
[2020-01-25 05:59] LABS: Absolute Lymphocyte Count 0.77 X10^3/uL (0.83-4.51); Absolute Neutrophil Count 9.6 X10^3/uL (2.0-7.7); Basophil# 0.08 X10^3/uL; Basophil% 0.6 % (0-1); Eosinophil# 0.41 X10^3/uL; Eosinophils% 3.1 % (0-5); Hematocrit 35.8 % (37-47); Hemoglobin 11.8 g/dL (12.0-15.0); Lymphocyte # 0.77 X10^3/ul (4.0); Lymphocyte % 5.8 % (19-41); Mean Corpuscular Hgb 29.9 pg (27.0-32.0); Mean Corpuscular Volume 90.9 fL (81-99); Mean Platelet Vol. 11.8 fl (6.2-12.0); Monocyte# 2.36 X10^3/uL; Monocyte% 17.8 % (0-10); NRBC Flagged by Analyzer 0 % (0-5); Neutrophil # 9.55 X10^3/uL (2.7-7.7); Neutrophil % 72.2 % (47-70); POSITIVE DIFFERENTIAL YES; Platelet Count 145 K/mm3 (150-450); RBC Distribution Width CV 15.9 % (11.6-14.6); RBC Distribution Width SD 52.4 fl (35.1-43.9); Red Blood Count 3.94 M/mm3 (4.2-5.4); White Blood Count 13.2 K/mm3 (4.4-11.0)
[2020-01-25 06:00] LABS: Differential Indicated SCAN CRITERIA MET
[2020-01-25 06:16] LABS: Anion Gap 5 (5-15); BUN 37 mg/dL (7-18); BUN/Creat Ratio 23.4 RATIO (10-20); Calcium,Total 8.8 mg/dL (8.5-10.1); Chloride 104 mmol/L (98-107); Creatinine, Serum 1.58 mg/dL (0.55-1.02); Differential Comment SCANNED; EST Glomerular Filtration Rate 34 mL/min (>60); Est Glom Filt Rate - Afr Amer 41 mL/min (>60); Estimated Creatinine Clearance 24.27 ml/min; Glucose 174 mg/dL (74-106); Ovalocyte RARE; Potassium 3.2 mmol/L (3.5-5.1); Reactive Lymphocyte 1+; Sodium Level 137 mmol/L (136-145)
[2020-01-25 06:17] LABS: Stomatocyte RARE
[2020-01-25] MEDS: Levothyroxine 75 MCG Tablet PO (06:58)
[2020-01-25] MEDS: Enoxaparin 30 MG/0.3 ML Syringe SC (06:58)
[2020-01-25] MEDS: Insulin Lispro 100 UNIT/ML INSULN.PEN 10 UNIT SC ×2 (09:32→12:07)
[2020-01-25] MEDS: Insulin Lispro 100 UNIT/ML INSULN.PEN SC (09:32)
[2020-01-25] MEDS: FLUoxetine 20 MG Capsule 40 MG PO (09:34)
[2020-01-25] MEDS: Isosorbide Mononitrate 60 MG Tablet PO (09:34)
[2020-01-25] MEDS: Aspirin 81 MG TAB.CHEW PO (09:34)
[2020-01-25] MEDS: Methylcellulose 2 GM Bottle PO (09:34)
[2020-01-25] MEDS: Allopurinol 100 MG Tablet PO (09:34)
[2020-01-25] MEDS: Metoprolol(XL)Succ 25 MG Tablet PO (09:34)
[2020-01-25] MEDS: Pantoprazole Sodium 40 MG Tablet PO (09:34)
[2020-01-25] MEDS: Insulin NPH Human 100 UNITS/ML PEN 26 UNITS SC (09:34)
[2020-01-25] MEDS: Folic Acid 1 MG Tablet PO (09:34)
[2020-01-25] MEDS: Polyethylene Glycol 3350 17 GM PACKET PO (09:34)
[2020-01-25] MEDS: Nystatin Powder 15gm Bottle 1 APPLIC TOPICAL (09:35)
[2020-01-25 09:51] LABS: Bedside Glucose 162 mg/dL (70-110)
[2020-01-25] MEDS: 0.9% Saline Lock 10 ML Syringe IV (10:08)
--- NOTE | 2020-01-25 10:37 | PCM.HP.ID ---
Reason for Consult: esbl bacteremia Consulted by: Dr. Murillo History of Present Illness: The patient is a 79 year old F with CKD, lives at home by herself, presented 01/22 with several days of not feeling well, fever/chills, dysuria. No abd pain. No back pain. No n/v/d. Had CT here, no stone or abscess seen. On meropenem, feeling better. Daughter is a nurse and lives down the street. Full ROS performed and neg except as noted above. - Medical History Past Medical History (Chronic Problems): Chronic Problems (Last Reviewed 09/22/19 @ 11:[address] Long Jovel MD) Atherosclerosis of coronary artery of [place] heart without angina pectoris (Chronic) Chronic systolic (congestive) heart failure (Chronic) Nonrheumatic aortic (valve) stenosis (Chronic) Non-ischemic cardiomyopathy (Chronic) Secondary pulmonary arterial hypertension (Chronic) Right bundle branch block (RBBB) (Chronic) Essential hypertension (Chronic) Hyperlipemia (Chronic) Allergies/Adverse Reactions: Allergies Iodinated Contrast Media [CONTRASTS] Adverse Reaction (Verified 01/23/20 11:23) Hives Home Medications: Ambulatory Orders Medication Instructions Recorded Albuterol Aerosols [Ventolin 2.5 mg INHALATION TID 06/05/19 Aerosols] Allopurinol 100 mg PO DAILY 06/05/19 Aspirin [Aspirin, Baby] 81 mg PO DAILY@0800 06/05/19 Colchicine 0.6 mg PO PRN PRN 06/05/19 Fluoxetine HCl [Prozac] 40 mg PO DAILY 06/05/19 Folic Acid 1 mg PO DAILY 06/05/19 Insulin NPH Human Isophane 26 units SUBCUT BREAKFAST 06/05/19 [Humulin N] Insulin Regular, Human [Humulin R] 10 units SUBCUT QHS 06/05/19 Insulin Regular, Human [Humulin R] 16 units SUBCUT BREAKFAST 06/05/19 Isosorbide Mononitrate [Imdur] 60 mg PO BID 06/05/19 Levothyroxine [Synthroid] 75 mcg PO DAILY 06/05/19 Meclizine HCl [Antivert] 12.5 mg PO DAILY PRN PRN 06/05/19 Metoprolol Succinate [Toprol Xl] 25 mg PO DAILY 06/05/19 Nitroglycerin (INPATIENT USE) 0.4 mg SUBLINGUAL Q5M PRN 06/05/19 [Nitrostat] Omeprazole 40 mg PO DAILY 06/05/19 Polyethylene Glycol 3350 [Miralax] 17 gm PO DAILY 06/05/19 Potassium Chloride 20 meq PO BID 06/05/19 Simvastatin 20 mg PO QHS 06/05/19 Methylcellulose [Citrucel] 850 gm PO DAILY 06/29/19 [place], Disposable [Easy Touch 1 ea MC DAILY #10 dis.needle 07/02/19 Hypodermic Needle] Nystatin Powder [Mycostatin Powder] 1 applic TOPICAL BID #1 bottle 07/02/19 Syringe, Disposable, 5 ml [Bulk 1 ea MC DAILY #10 disp.syrin 07/02/19 Syringe] cranberry 500 mg capsule 500 mg PO DAILY cap 09/22/19 furosemide 40 mg tablet 40 mg PO DAILY #180 tab 09/22/19 insulin NPH isoph U-100 human 100 20 unit SUBCUT QHS ml 09/22/19 unit/mL subcutaneous suspension Ertapenem Sodium [Invanz] 0.5 gm IM DAILY 6 Days #6 vial 01/25/20 - Social History SMOKING STATUS:: Former smoker Vital Signs Temp Pulse Resp BP Pulse Ox 98.3 F 74 16 111/47 L 97 01/25/20 09:40 01/25/20 09:40 01/25/20 09:40 01/25/20 09:40 01/25/20 09:40 Oxygen Flow Rate (L/min) 2 Oxygen Delivery Method Nasal Cannula Weight: 98.43 kg Body Mass Index (BMI) 38.4 Microbiology Past 72 Hours 01/23/20 12:25 Urine Culture - Preliminary Urine, Random Presumptive E. coli 01/23/20 13:50 Blood Culture - Preliminary Blood Culture (Wb) - Right Hand GNR lactose head bone grinder 01/23/20 11:45 Blood Culture - Preliminary Blood Culture (Wb) - Anticubital Left Escherichia coli 01/23/20 12:05 Influenza Types A,B Direct FA (ALICIA) - Final Mucosa - Nasopharyngeal 01/23/20 12:05 Rapid RSV (DFA) - Final Mucosa - Nasopharyngeal Laboratory Tests Past 24 Hrs 01/23/20 01/25/20 01/25/20 11:45 05:30 05:30 WBC 13.2 H RBC 3.94 L Hgb 11.8 L Hct 35.8 L MCV 90.9 MCH 29.9 MCHC 33.0 RDW Std Deviation 52.4 H RDW Coeff of Oscar 15.9 H Plt Count 145 L MPV 11.8 Immature Gran % (Auto) 0.500 Neut % (Auto) 72.2 H Lymph % (Auto) 5.8 L [place] % (Auto) 17.8 H Eos % (Auto) 3.1 Baso % (Auto) 0.6 Absolute Neuts (auto) 9.6 H Absolute Lymphs (auto) 0.77 L Nucleated RBC % 0 Differential Comment SCANNED Diff Path Review Reviewed May foll Reactive Lymphocytes 1+ Ovalocytes RARE Stomatocytes RARE Sodium 137 Potassium 3.2 L Chloride 104 Carbon Dioxide 28.0 Anion Gap 5 BUN 37 H Creatinine 1.58 H Estim Creat Clear Calc 24.27 Est GFR (MDRD) Af Amer 41 L Est GFR (MDRD) Non-Af 34 L BUN/Creatinine Ratio 23.4 H Glucose 174 H Calcium 8.8 - Other Studies Radiology: [] reviewed Other Studies: [] Route of nutrition/ use of supplements: [] Nutritional Intake: [] IV Site: [] [place] Catheter: [] - Physical Exam General: Alert, Oriented x3, Cooperative, No apparent distress HEENT: Atraumatic, PERRLA, EOMI Neck: Supple, No Nodes Lungs: Clear to auscultation, Normal air movement Cardiovascular: Regular rate, Regular Rhythm, No murmurs Abdomen: Soft, Non Tender, Non-Distended Extremities: Edema - mild Skin: No rashes IV Site: Peripheral, without redness Musculoskeletal: No Tenderness to Palpation of Joints or Extremities Neurological: Cranial nerves II-XII grossly intact - Assessment/Plan Antibiotics: [] Assessment/Plan: [] Active and Suspected Problems (Last Reviewed 09/22/19 @ 11:[address] Long Jovel MD) Severe sepsis (Acute) UTI (urinary tract infection) (Acute) Shortness of breath (Acute) severe sepsis with ESBL ecoli bacteremia from urinary source - feeling better, on meropenem. Plan for discharge will be IM ertapenem 0.5gm qday, stop date 02/01/20. Will need dose of ertapenem 0.5gm IV x1 prior to discharge. Will follow, thank you, d/w Dr. Murillo
[2020-01-25 11:13] LABS: Pathologist Review Reviewed
[2020-01-25 11:18] LABS: Pathologist Review Reviewed
--- NOTE | 2020-01-25 12:06 | PCM.DC ---
- Discharge Diagnoses Current Active Problems: Current Active and Chronic Problems (Last Reviewed 09/22/19 @ 11:[address] Long Jovel MD) Severe sepsis (Acute) UTI (urinary tract infection) (Acute) Shortness of breath (Acute) You will use the following diet at home:: Calorie/Carbohydrate Controlled (specify 1200, 1400, etc) - 1800 Your food should be the consistency of: Regular Discharge Activity: Return to Normal Activity Allergies/Adverse Reactions: Allergies Iodinated Contrast Media [CONTRASTS] Adverse Reaction (Verified 01/23/20 11:23) Hives Medications to take at Discharge Albuterol Aerosols [Ventolin Aerosols] 2.5 mg INHALATION TID 06/05/19 Allopurinol 100 mg PO DAILY 06/05/19 Aspirin [Aspirin, Baby] 81 mg PO DAILY@0800 06/05/19 Colchicine 0.6 mg PO PRN PRN 06/05/19 Fluoxetine HCl [Prozac] 40 mg PO DAILY 06/05/19 Folic Acid 1 mg PO DAILY 06/05/19 Insulin NPH Human Isophane [Humulin N] 26 units SUBCUT BREAKFAST 06/05/19 Insulin Regular, Human [Humulin R] 10 units SUBCUT QHS 06/05/19 Insulin Regular, Human [Humulin R] 16 units SUBCUT BREAKFAST 06/05/19 Isosorbide Mononitrate [Imdur] 60 mg PO BID 06/05/19 Levothyroxine [Synthroid] 75 mcg PO DAILY 06/05/19 Meclizine HCl [Antivert] 12.5 mg PO DAILY PRN PRN 06/05/19 Metoprolol Succinate [Toprol Xl] 25 mg PO DAILY 06/05/19 Nitroglycerin (INPATIENT USE) [Nitrostat] 0.4 mg SUBLINGUAL Q5M PRN 06/05/19 Omeprazole 40 mg PO DAILY 06/05/19 Polyethylene Glycol 3350 [Miralax] 17 gm PO DAILY 06/05/19 Potassium Chloride 20 meq PO BID 06/05/19 Simvastatin 20 mg PO QHS 06/05/19 Methylcellulose [Citrucel] 850 gm PO DAILY 06/29/19 [place], Disposable [Easy Touch Hypodermic Needle] 1 ea MC DAILY #10 dis.needle 07/02/19 Nystatin Powder [Mycostatin Powder] 1 applic TOPICAL BID #1 bottle 07/02/19 Syringe, Disposable, 5 ml [Bulk Syringe] 1 ea MC DAILY #10 disp.syrin 07/02/19 cranberry 500 mg capsule 500 mg PO DAILY cap 09/22/19 insulin NPH isoph U-100 human 100 unit/mL subcutaneous suspension 20 unit SUBCUT QHS ml 09/22/19 Ertapenem Sodium [Invanz] 0.5 gm IM DAILY 6 Days #6 vial 01/25/20 The following prescriptions were given: Ertapenem Sodium [Invanz] 0.5 gm IM DAILY 6 Days #6 vial Prescription Printed Primary Care Physician: Rommel Arango MD [Primary Care Provider] - Within 2 Weeks Test Results: Test results from this visit will be discussed in further detail at your follow-up appointment, if applicable. Proposed Discharge Date: 01/25/20
--- NOTE | 2020-01-25 12:08 | DS.PCM_ITS ---
Discharge Date and Diagnosis - Problem List Patient Problems: Active and Suspected Problems (Last Reviewed 09/22/19 @ 11:[address] Long Jovel MD) Bacteremia (Acute) Severe sepsis (Acute) UTI (urinary tract infection) (Acute) Shortness of breath (Acute) Date of Admission: 01/23/20 Date of Discharge: 01/25/20 - Primary Discharge Diagnosis Active and Suspected Problems (Last Reviewed 09/22/19 @ 11:[address] Long Jovel MD) Bacteremia (Acute) Severe sepsis (Acute) UTI (urinary tract infection) (Acute) Shortness of breath (Acute) - Secondary Discharge Diagnosis Chronic Problems (Last Reviewed 09/22/19 @ 11:[address] 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 Colonic diverticula without evidence of diverticulitis. Redemonstration of small foci of air in the endometrial cavity which are of uncertain clinical significance. A fistula cannot be excluded. No urinary calculi. No hydronephrosis. Electronically Signed: Adolfo Dawson, at 13:23 EDT Tel , Service support , Chest X-Ray 01/23/20 11:56 IMPRESSION: No acute thoracic pathology. Electronically Signed: Adolfo Dawson, at 13:28 EDT Tel , Service support , Chest CT 01/23/20 13:51 IMPRESSION: Stable chronic increased interstitial markings in the lungs. No pulmonary infiltrates or pleural effusions. Redemonstration of a right-sided aortic arch. Stable postsurgical changes from prior sternotomy and coronary artery bypass. Electronically Signed: Adolfo Dawson, at 15:21 EDT Tel , Service support , HANNA Zamorano Operations: None Procedures: None Summary of Care Provided: The patient is a 79 year old F Susanna with general malaise. Patient was found to have a urinary tract infection and subsequently bacteremia. All cultures all came back showing ESBL E. coli. Infectious disease was consulted and patient will be started on ertapenem. Patient was on meropenem during the hospitalization. Patient will continue with ertapenem IM. Patient has family members who were nursing. Patient be discharged with home health care in stable condition. [] Patient Problems: Active and Suspected Problems (Last Reviewed 09/22/19 @ 11:[address] Long Jovel MD) Bacteremia (Acute) Severe sepsis (Acute) UTI (urinary tract infection) (Acute) Shortness of breath (Acute) - Physical Exam Vitals/I&O's: Vital Signs Temp Pulse Resp BP Pulse Ox 36.8 C 72 16 111/47 L 97 01/25/20 09:40 01/25/20 11:50 01/25/20 09:40 01/25/20 09:40 01/25/20 09:40 Oxygen Flow Rate (L/min) 2 Oxygen Delivery Method Nasal Cannula Weight: 98.43 kg Body Mass Index (BMI) 38.4 Intake and Output for Last 24 Hours 01/23/20 01/24/20 01/25/20 23:59 23:59 23:59 Intake Total 2280.33 / 2280.33 3776 / 3776 320 / 320 Output Total 900 / 900 1740 / 1740 400 / 400 Balance 1380.33 / 1380.33 2036 / 2036 -80 / -80 General: Alert, No apparent distress HEENT: Atraumatic, Normocephalic Oral: Moist Mucosa, No Gingival or Mucosal Lesions/ Ulcerations Neck: No Nodes, Trachea Midline Lungs: Clear to auscultation, Normal air movement, No rhonchi, No wheeze, No rales Cardiovascular: Regular rate, Regular Rhythm, Normal S1, Normal S2, No murmurs Abdomen: Bowel Sounds Present, Soft, Non Tender, Non-Distended, No Hepato- splenomegaly Extremities: No edema, No Calf Tenderness Skin: No rashes, No breakdown Psych/Mental Status: Normal Affect, Appropriate Microbiology Past 72 Hours 01/23/20 12:25 Urine, Random Urine Culture - Preliminary Presumptive E. 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 01/23/20 11:45 Blood Culture (Wb) - Anticubital Left Blood Culture - Preliminary Escherichia coli 01/23/20 12:05 Mucosa - Nasopharyngeal Influenza Types A,B Direct FA (ALICIA) - Final 01/23/20 12:05 Mucosa - Nasopharyngeal Rapid RSV (DFA) - Final Laboratory Results 01/24/20 06:16: Diff Path Review Reviewed 01/24/20 16:08: POC Glucose 200 H 01/24/20 21:30: POC Glucose 179 H 01/25/20 05:30: WBC 13.2 H, RBC 3.94 L, Hgb 11.8 L, Hct 35.8 L, MCV 90.9, MCH 29.9, MCHC 33.0, RDW Std Deviation 52.4 H, RDW Coeff of Oscar 15.9 H, Plt Count 145 L, MPV 11.8, Immature Gran % (Auto) 0.500, Neut % (Auto) 72.2 H, Lymph % (Auto) 5.8 L, Carter % (Auto) 17.8 H, Eos % (Auto) 3.1, Baso % (Auto) 0.6, Absolute Neuts (auto) 9.6 H, Absolute Lymphs (auto) 0.77 L, Nucleated RBC % 0, Differential Comment SCANNED, Diff Path Review Reviewed, Reactive Lymphocytes 1+, Ovalocytes RARE, Stomatocytes RARE 01/25/20 05:30: Sodium 137, Potassium 3.2 L, Chloride 104, Carbon Dioxide 28.0, Anion Gap 5, BUN 37 H, Creatinine 1.58 H, Estim Creat Clear Calc 24.27, Est GFR (MDRD) Af Amer 41 L, Est GFR (MDRD) Non-Af 34 L, BUN/Creatinine Ratio 23.4 H, Glucose 174 H, Calcium 8.8 01/25/20 09:30: POC Glucose 162 H Current Medications Acetaminophen (Tylenol) 650 mg PO Q6H PRN PRN PRN Reason: Pain Score 1-10/Temp > 100.7 F Last Admin: 01/24/20 16:15 Dose: 650 mg Documented by: Albuterol Sulfate (Ventolin Aerosols) 2.5 mg INHALATION Q4H.RT PRN PRN Reason: WHEEZING Allopurinol (Zyloprim) 100 mg PO DAILYCM COUNT INCLUDES THE [facility] Last Admin: 01/25/20 09:34 Dose: 100 mg Documented by: Aspirin (Aspirin, Baby) 81 mg PO DAILY@0800 COUNT INCLUDES THE [facility] Last Admin: 01/25/20 09:34 Dose: 81 mg Documented by: Atorvastatin Calcium (Lipitor) 10 mg PO QHS COUNT INCLUDES THE [facility] Last Admin: 01/24/20 21:38 Dose: 10 mg Documented by: Colchicine (Colchicine) 0.6 - 1.2 mg PO Q1H PRN PRN Reason: gout Enoxaparin Sodium (Lovenox) 30 mg SC DAILY@0600 COUNT INCLUDES THE [facility] Last Admin: 01/25/20 06:58 Dose: 30 mg Documented by: Fluoxetine HCl (Prozac) 40 mg PO DAILY COUNT INCLUDES THE [facility] Last Admin: 01/25/20 09:34 Dose: 40 mg Documented by: Folic Acid (Folic Acid) 1 mg PO DAILYCM COUNT INCLUDES THE [facility] Last Admin: 01/25/20 09:34 Dose: 1 mg Documented by: Glucagon () 1 mg IM .X1 PRN PRN Reason: Hypoglycemia Dextrose (Dextrose 10%-Water) 250 mls @ 999 mls/hr IV .Q16M PRN; Protocol PRN Reason: HYPOGLYCEMIA Meropenem 1 gm/ Sodium (Chloride) 120 mls @ 33 mls/hr IV Q12 COUNT INCLUDES THE [facility] Last Admin: 01/25/20 10:08 Dose: 33 mls/hr Documented by: Insulin Human Lispro (Humalog Kwikpen (Bkc)) 0 unit SC ACHS COUNT INCLUDES THE [facility]; Protocol Last Admin: 01/25/20 09:32 Dose: 1 units Documented by: Insulin Human Lispro (Humalog Kwikpen (Bkc)) 10 unit SC TIDAC COUNT INCLUDES THE [facility] Last Admin: 01/25/20 09:32 Dose: 10 u Documented by: Insulin Human NPH (Humulin N (Bkc)) 20 units SC QHS COUNT INCLUDES THE [facility] Last Admin: 01/24/20 21:50 Dose: 20 u Documented by: Insulin Human NPH (Humulin N (Bkc)) 26 units SC BREAKFAST COUNT INCLUDES THE [facility] Last Admin: 01/25/20 09:34 Dose: 26 u Documented by: Isosorbide Mononitrate (Imdur) 60 mg PO BID COUNT INCLUDES THE [facility] Last Admin: 01/25/20 09:34 Dose: 60 mg Documented by: Levothyroxine Sodium (Synthroid) 75 mcg PO DAILY@0600 COUNT INCLUDES THE [facility] Last Admin: 01/25/20 06:58 Dose: 75 mcg Documented by: Meclizine HCl (Antivert) 12.5 mg PO DAILY PRN PRN PRN Reason: DIZZINESS Methylcellulose (Citrucel) 2 gm PO DAILY COUNT INCLUDES THE [facility] Last Admin: 01/25/20 09:34 Dose: 2 gm Documented by: Metoprolol Succinate (Toprol Xl (Beta Dom)) 25 mg PO DAILY COUNT INCLUDES THE [facility] Last Admin: 01/25/20 09:34 Dose: 25 mg Documented by: Nitroglycerin (Nitrostat) 0.4 mg SUBLINGUAL Q5M PRN PRN Reason: CARDIAC/CHEST PAIN Nutritional Formula (Lactose Free) (Glucerna Shake) 120 ml PO 4X/DAY COUNT INCLUDES THE [facility] Last Admin: 01/25/20 09:35 Dose: Not Given Documented by: Nystatin (Mycostatin Powder) 1 applic TOPICAL BID COUNT INCLUDES THE [facility]; Protocol Last Admin: 01/25/20 09:35 Dose: 1 applicatio Documented by: Ondansetron HCl (Zofran) 4 mg IV Q8H PRN PRN PRN Reason: NAUSEA/VOMITING Pantoprazole Sodium (Protonix) 40 mg PO DAILY COUNT INCLUDES THE [facility] Last Admin: 01/25/20 09:34 Dose: 40 mg Documented by: Polyethylene Glycol (Miralax) 17 gm PO DAILY COUNT INCLUDES THE [facility] Last Admin: 01/25/20 09:34 Dose: 17 gm Documented by: Potassium Chloride (K-Dur) 20 meq PO BID COUNT INCLUDES THE [facility] Last Admin: 01/25/20 09:34 Dose: 20 meq Documented by: Sodium Chloride () 10 - 40 ml IV UD PRN PRN Reason: SALINE FLUSH Last Admin: 01/25/20 10:08 Dose: 10 ml Documented by: Discharge Diet: 1800 Calorie Control Diet Discharge Activity: Return to Normal Activity Home Medications: Medications to take at Discharge Albuterol Aerosols [Ventolin Aerosols] 2.5 mg INHALATION TID 06/05/19 Allopurinol 100 mg PO DAILY 06/05/19 Aspirin [Aspirin, Baby] 81 mg PO DAILY@0800 06/05/19 Colchicine 0.6 mg PO PRN PRN 06/05/19 Fluoxetine HCl [Prozac] 40 mg PO DAILY 06/05/19 Folic Acid 1 mg PO DAILY 06/05/19 Insulin NPH Human Isophane [Humulin N] 26 units SUBCUT BREAKFAST 06/05/19 Insulin Regular, Human [Humulin R] 10 units SUBCUT QHS 06/05/19 Insulin Regular, Human [Humulin R] 16 units SUBCUT BREAKFAST 06/05/19 Isosorbide Mononitrate [Imdur] 60 mg PO BID 06/05/19 Levothyroxine [Synthroid] 75 mcg PO DAILY 06/05/19 Meclizine HCl [Antivert] 12.5 mg PO DAILY PRN PRN 06/05/19 Metoprolol Succinate [Toprol Xl] 25 mg PO DAILY 06/05/19 Nitroglycerin (INPATIENT USE) [Nitrostat] 0.4 mg SUBLINGUAL Q5M PRN 06/05/19 Omeprazole 40 mg PO DAILY 06/05/19 Polyethylene Glycol 3350 [Miralax] 17 gm PO DAILY 06/05/19 Potassium Chloride 20 meq PO BID 06/05/19 Simvastatin 20 mg PO QHS 06/05/19 Methylcellulose [Citrucel] 850 gm PO DAILY 06/29/19 [place], Disposable [Easy Touch Hypodermic Needle] 1 ea MC DAILY #10 dis.needle 07/02/19 Nystatin Powder [Mycostatin Powder] 1 applic TOPICAL BID #1 bottle 07/02/19 Syringe, Disposable, 5 ml [Bulk Syringe] 1 ea MC DAILY #10 disp.syrin 07/02/19 cranberry 500 mg capsule 500 mg PO DAILY cap 09/22/19 insulin NPH isoph U-100 human 100 unit/mL subcutaneous suspension 20 unit SUBCUT QHS ml 09/22/19 Ertapenem Sodium [Invanz] 0.5 gm IM DAILY 6 Days #6 vial 01/25/20 Following Prescrptions Were Given to Patient: Ertapenem Sodium [Invanz] 0.5 gm IM DAILY 6 Days #6 vial Prescription Printed Primary Care Physician: Rommel Arango MD [Primary Care Provider] - Within 2 Weeks Disposition: Home with Home Health Minutes spent on discharge:: 35 Patient Condition:: Good Medical Necessity - Tobacco Use Smoking Status: Former smoker Meaningful Use Info Meaningful Use Diagnoses (Choose all that apply): None applicable Inpatient E&M: 80303 Disch Hosp
[2020-01-25 12:16] LABS: Bedside Glucose 141 mg/dL (70-110)
--- NOTE | 2020-01-25 12:56 | CASEMGMT ---
Pt to be sent home on IM Ertapenem 0.5gm IM daily for 6 days for ESBL bacteremia per Dr. Zamorano. This RN CM placed call to pt's room as she is in isolation at this time and pt states to call her daughter, Steff, at this time to discuss. 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 Call to Steff and she states that pt has been on this in the past and she would prefer that [facility] retail pharmacy fill the script w/ syringes, needles, and 1% lidocaine at this time. Pt was already set up with [facility] for SN, PT/OT and Steff is still agreeable to this at this time. Call to [facility] retail pharmacy and they state they are able to run the script at this time. Per pharmacy, they will bring meds to bedside. Steff does ask pt's RN to call her with discharge time and to let her know if pt needs any further clothes for discharge. Elmira PAREDES updated at this time, voices understanding. Call to Florinda at [facility] to update on IM injection and pt discharge today, voices understanding. Pt/daughter voice no further questions/concerns/needs at this time. Pt awaiting discharge. Jerome PAREDES CM
--- NOTE | 2020-01-25 15:13 | NURSING ---
discharge instructions reviewed with patient daughter, Kala prior to discharge as instructed by patient. pt daughter notified this RN that home medications were not entered correctly on admission in regards to diuretics. medication list updated. Kala concerned with her being off of diuretics with regards to pt history of CHF and recent exacerbation. message sent to MD to verify to hold medications after reviewing updated med list with MD. MD verified to continue to hold medications at time of discharge due to patient being in acute renal failure on admission. recommended discussing medication changes with PCP during follow-up appt on or with Dr Jovel in the next week as follow-up. updated discussion with patient's daughter Kala. pts daughter still uphappy with discharge plan. concerned pt is in CHF exac again. assured Kala that patient's lungs were clear and no acute shortness of breath noted. cell phone number provided to of Kala per her request to directly discuss with .
--- NOTE | 2020-01-26 13:33 | CASEMGMT ---
REGGIE QUEVEDO Discharge Follow-up Phone Call: CARINEJuan C: Earl Strata: 3 Call Date: 01/26/20 Discharge Date: 01/25/2020 Time of Call:1325 Duration: 7 min Admitting Diagnosis: Sepsis, UTI REGGIE QUEVEDO completed follow-up phone call after recent hospitalization. Patient's daughter Steff answered phone. States mother is doing well, some SOB last night. Daughter called and clarified Lasix order with doctor and restarted her Lasix. [facility] is there at this time. Daughter had no questions regarding discharge instructions. Daughter was able to fill prescriptions without any issues. Patient has phone follow-up with PCP tomorrow. Daughter had no further questions or concerns at this time.
== END 2020-01-25 16:06 | disposition home health service (06) | DRG 872 ==
LOC: ED 15:39 → PCU 15:47
PROVIDERS: Internal Medicine; Admitting Provider Student in an Organized Health Care Education/Training Program; Emergency Provider Emergency Medicine; PCP Family Medicine
DX: A41.9 Sepsis, unspecified organism (principal); N39.0 Urinary tract infection, site not specified; E87.2 Acidosis; J96.11 Chronic respiratory failure with hypoxia; I13.0 Hypertensive heart and chronic kidney disease with heart failure and stage 1 through stage 4 chronic kidney disease, or unspecified chronic kidney disease; I50.22 Chronic systolic (congestive) heart failure; Z16.12 Extended spectrum beta lactamase (ESBL) resistance; R65.20 Severe sepsis without septic shock; E11.22 Type 2 diabetes mellitus with diabetic chronic kidney disease; N18.3 Chronic kidney disease, stage 3 (moderate); J44.9 Chronic obstructive pulmonary disease, unspecified; I25.10 Atherosclerotic heart disease of native coronary artery without angina pectoris; E87.6 Hypokalemia; E83.42 Hypomagnesemia; E11.65 Type 2 diabetes mellitus with hyperglycemia; I27.21 Secondary pulmonary arterial hypertension; E78.5 Hyperlipidemia, unspecified; E03.9 Hypothyroidism, unspecified; F32.9 Major depressive disorder, single episode, unspecified; F41.9 Anxiety disorder, unspecified; K21.9 Gastro-esophageal reflux disease without esophagitis; G47.33 Obstructive sleep apnea (adult) (pediatric); E66.01 Morbid (severe) obesity due to excess calories; Z68.38 Body mass index [BMI] 38.0-38.9, adult; Z79.82 Long term (current) use of aspirin; Z79.4 Long term (current) use of insulin; Z99.81 Dependence on supplemental oxygen; Z79.899 Other long term (current) drug therapy; I25.2 Old myocardial infarction; Z87.891 Personal history of nicotine dependence; Z96.653 Presence of artificial knee joint, bilateral; Z95.1 Presence of aortocoronary bypass graft; Z95.5 Presence of coronary angioplasty implant and graft
CPT/HCPCS: 36415; 71045; 71250; 74176; 80048; 80053; 81001; 82962; 83605; 83690; 83735; 84100; 84484; 85025; 87040; 87077; 87086; 87088; 87186; 87804; 87807; 93005; 94762; 97116; 97162; 97166; 97802; 99285; J2185; J7030; J7050; A4216; J2405

== ENCOUNTER 2020-02-17 16:00 | Outpatient (RCR) | payer MEDICARE, OTHER, SELFPAY ==
[2020-01-23 16:24] VITALS: BMI 38.4
[2020-01-27 16:37] LABS: Hematocrit 41.1 % (37-47); Hemoglobin 13.2 g/dL (12.0-15.0); Mean Corp Hgb Conc 32.1 g/dL (32-36); Mean Corpuscular Hgb 29.3 pg (27.0-32.0); Mean Corpuscular Volume 91.3 fL (81-99); Mean Platelet Vol. 11.6 fl (6.2-12.0); Platelet Count 225 K/mm3 (150-450); RBC Distribution Width CV 15.8 % (11.6-14.6); RBC Distribution Width SD 52.8 fl (35.1-43.9); White Blood Count 8.4 K/mm3 (4.4-11.0)
[2020-01-27 16:44] LABS: Anion Gap 7 (5-15); BUN 37 mg/dL (7-18); BUN/Creat Ratio 26.8 RATIO (10-20); Calcium,Total 8.6 mg/dL (8.5-10.1); Chloride 96 mmol/L (98-107); Creatinine, Serum 1.38 mg/dL (0.55-1.02); EST Glomerular Filtration Rate 39 mL/min (>60); Est Glom Filt Rate - Afr Amer 48 mL/min (>60); Glucose 97 mg/dL (74-106); Potassium 3.4 mmol/L (3.5-5.1); Sodium Level 135 mmol/L (136-145)
[2020-02-17 11:46] LABS: Mean Corp Hgb Conc 31.7 g/dL (32-36); Mean Corpuscular Hgb 29.1 pg (27.0-32.0); Mean Corpuscular Volume 91.7 fL (81-99); Mean Platelet Vol. 12.7 fl (6.2-12.0); Platelet Count 196 K/mm3 (150-450); RBC Distribution Width CV 16.2 % (11.6-14.6); RBC Distribution Width SD 54.4 fl (35.1-43.9); Red Blood Count 4.47 M/mm3 (4.2-5.4); White Blood Count 8.9 K/mm3 (4.4-11.0)
[2020-02-17 11:58] LABS: Anion Gap 9 (5-15); BUN 35 mg/dL (7-18); BUN/Creat Ratio 21.5 RATIO (10-20); Calcium,Total 9.2 mg/dL (8.5-10.1); Chloride 99 mmol/L (98-107); Creatinine, Serum 1.63 mg/dL (0.55-1.02); EST Glomerular Filtration Rate 32 mL/min (>60); Est Glom Filt Rate - Afr Amer 39 mL/min (>60); Glucose 168 mg/dL (74-106); Sodium Level 138 mmol/L (136-145)
[2020-02-18 12:32] LABS: ALB/GLOB Ratio 0.6 RATIO (0.9-2.4); AST(SGOT) 22 U/L (15-37); Alanine Aminotransfer ALT/SGPT 16 U/L (13-56); Alkaline Phosphatase 103 U/L (45-117); Cholesterol 156 mg/dL (200); Globulin 5.2 g/dL (2.2-4.2); High Density Lipoprotein 63 mg/dL; Protein, Total 8.2 g/dL (6.4-8.2); Thyroid Stim Hormone (TSH) 1.71 uIU/mL (0.358-3.74); Triglycerides 92 mg/dL; Very Low Density Lipoprotein 18 mg/dL (5-40)
[2020-02-18 12:37] LABS: Hemoglobin A1c 7.1 % (4.2-6.3)
== END 2020-02-24 18:00 | disposition home or self-care (01) ==
LOC: HHLAB 16:00
PROVIDERS: PCP Family Medicine
DX: E11.9 Type 2 diabetes mellitus without complications (principal); A41.51 Sepsis due to Escherichia coli [E. coli]; N39.0 Urinary tract infection, site not specified; I25.2 Old myocardial infarction; Z78.9 Other specified health status
CPT/HCPCS: 80048; 80061; 82040; 82247; 83036; 84075; 84156; 84443; 84450; 84460; 85027

== ENCOUNTER 2021-01-30 03:45 | Inpatient (IN) | payer MEDICARE, OTHER, SELFPAY ==
[2021-01-30] VITALS (12 sets, daily range): BP systolic 104–160; BP diastolic 43–72; PULSE 51–73; RESP 16–20; TEMP 36.1–37.1; O2SAT 95–99; BMI 35.6; BMI 33.5; BMI 33.0
--- NOTE | 2021-01-30 04:09 | EKG12_ITS ---
Test Reason : FALL Blood Pressure : / mmHG Vent. Rate : 074 BPM Atrial Rate : 074 BPM P-R Int : 224 ms QRS Dur : 154 ms QT Int : 508 ms P-R-T Axes : 086 -74 052 degrees QTc Int : 563 ms Sinus rhythm with 1st degree A-V block with frequent Premature ventricular complexes Left axis deviation Non-specific intra-ventricular conduction block Possible Lateral infarct , age undetermined Abnormal ECG Confirmed by CHANTEL JULIAN, LORENZA ([id number]), book or script editor ROXANA OLIVO ([id number]) on 02/02/2021 2:48:51 PM Referred By: NAOMY Confirmed By:MIKHAIL GOLDEN MD
--- NOTE | 2021-01-30 04:09 | RAD_ITS ---
STUDY: X-RAY CHEST REASON FOR EXAM: Female, 80 years old. cough, hypoglycemia TECHNIQUE: Single AP portable view of the chest. COMPARISON: None. FINDINGS: The lungs are underexpanded with vascular crowding, cannot exclude vascular congestion. There is elevation of the right hemidiaphragm. Suboptimally seen left lung base, cannot exclude mild left effusion. There is mild cardiac enlargement. Midline sternotomy wires noted. Normal mediastinum and winifred. Normal visualized pulmonary arteries. Normal visualized aortic arch and descending thoracic aorta. There is demineralization of the osseous structures. There is degenerative osteoarthritis of the bilateral shoulders. There is no demonstrated abnormality of the visualized soft tissue structures of the upper abdomen. RAD/Chest 1 View (Portable) IMPRESSION: Possible mild vascular congestion. Cardiomegaly. Cannot exclude left-sided pleural effusion. Electronically Signed: Jessica Hall MD at 4:45 EDT , Service support ,
--- NOTE | 2021-01-30 04:10 | ED.VIS.GEN ---
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 Apparently she passed out, her daughter responded to her life alert (doesn't live w/ her, but is very close), she was on the floor w/ decreased LOC, flailing her arms and legs about, she checked her blood sugar and it was in the 30s, so she was given oral glucose/juice, something to eat, eventually came up to the 80s and was more alert, and now the patient feels fine except for some mild soreness at some skin tear she sustained in her fall. She does not remember any prodromal symptoms. She states she slept in this past day until around 1 in the afternoon but she had 3 meals, ate fairly well for each 1, took her insulin as scheduled, and she feels like she ate well enough to take her regular scheduled dosing. No recent illnesses. - Past Medical History (1) Insulin dependent diabetes mellitus Status: Chronic (2) Atherosclerosis of coronary artery of [place] heart without angina pectoris Status: Chronic (3) Chronic diastolic (congestive) heart failure Status: Chronic (4) Essential hypertension Status: Chronic (5) Hyperlipemia Status: Chronic (6) Nonrheumatic aortic (valve) stenosis Status: Chronic (7) Right bundle branch block (RBBB) Status: Chronic Past Medical History - Allergies and Home Meds Allergies/Adverse Reactions: Allergies Iodinated Contrast Media [CONTRASTS] Adverse Reaction (Verified 01/30/21 03:51) Hives Primary Care Physician: Rommel Arango MD [Primary Care Provider] - Surgical History: colectomy - With colostomy and colostomy reversal, coronary bypass surgery, - - Coronary stents; 2 knee operations Lives: Alone Smoking Status: Former smoker - Family History Maternal Family History: Family History (Last Reviewed 09/19/20 @ 15:[address] Long Jovel MD) Mother Heart disease Family History: Reports: Heart Disease, - - Her mother at 96 following complications of surgery from broken hip. Paternal Family History: Family History (Last Reviewed 09/19/20 @ 15:[address] Long Jovel MD) Mother Heart disease Family History: Reports: - - Patient do not know her paternal medical history. Review of Systems General: Denies: Chills, Fever, Sweats Eyes: Denies: Visual changes - bilaterally, Diplopia ENT: Denies: Rhinorrhea, Sore throat Cardiovascular: Denies: Chest pain, Palpitations Respiratory: Reports: Cough - Chronic nonproductive, Dyspnea on exertion - Chronic unchanged Gastrointestinal: Denies: Abdominal pain, Nausea, Vomiting, Diarrhea, Melena, Hematochezia Genitourinary: Denies: Dysuria, Hematuria, Frequency Musculoskeletal: Denies: Back pain, Extremity Pain Skin: Reports: Wounds. Denies: Rash Neurological: Reports: Headache - I always have one. Denies: Weakness, Numbness Physical Exam Vital Signs/Narrative: Vital Signs Temp Pulse Resp BP Pulse Ox 01/30/21 03:46 98.7 F 73 16 160/72 H 97 Inital Vital Signs reviewed: Yes General: Well nourished, Well developed, Obese, No Acute Distress Head: Normocephalic, Atraumatic Eyes: Perrl, EOMI ENT: Moist mucous membranes, No rhinorrhea, TM's clear Neck: Supple, Nontender Cardiovascular: Regular rate, Regular rhythm, No murmurs Respiratory: No distress, CTA bilaterally, Chest nontender Abdomen: Soft, Nontender, Nondistended, Normal bowel sounds Back: Nontender, Normal Inspection Extremities: Nontender, No edema Skin: Normal color, Trauma - Multiple old ecchymoses scattered throughout both arms with several minor acute skin tears without lacerations. Neurological: Alert, Oriented x3, Cranial nerves II-XII grossly intact, Normal Strength, Normal Sensation Psychological: Normal affect, Normal Mood Diagnostic/Tx/Re-eval Impressions Chest X-Ray 01/30/21 04:09 IMPRESSION: Possible mild vascular congestion. Cardiomegaly. Cannot exclude left-sided pleural effusion. Electronically Signed: Jessica Hall MD at 4:45 EDT , Service support , Brain CT 01/30/21 04:11 IMPRESSION: Involutional changes otherwise CT brain within normal limits for age. Specifically, no acute intracranial hemorrhage or space-occupying lesion. Electronically Signed: Jessica Hall MD at 4:48 EDT , Service support , 01/30/21 04:09 Chest 1 View (Portable) [RAD] Stat 01/30/21 04:11 CT Brain [Brain/Head without Contrast] [CT] Stat Laboratory Results 01/30/21 01/30/21 01/30/21 04:47 04:47 05:30 WBC 12.7 H RBC 4.63 Hgb 12.0 Hct 39.4 MCV 85.1 MCH 25.9 L MCHC 30.5 L RDW Std Deviation 60.3 H RDW Coeff of Oscar 19.7 H Plt Count 278 MPV 11.6 Immature Gran % (Auto) 0.500 Neut % (Auto) 85.0 H Lymph % (Auto) 4.0 L [place] % (Auto) 9.0 Eos % (Auto) 0.5 Baso % (Auto) 1.0 Absolute Neuts (auto) 10.8 H Absolute Lymphs (auto) 0.51 L Nucleated RBC % 0 Sodium 135 L Potassium 2.6 L* Chloride 99 Carbon Dioxide 28.0 Anion Gap 8 BUN 42 H Creatinine 1.38 H Estim Creat Clear Calc 27.34 Est GFR (MDRD) Af Amer 47 L Est GFR (MDRD) Non-Af 39 L BUN/Creatinine Ratio 30.4 H Glucose 84 Calcium 8.8 Troponin I 0.024 Urine Color Yellow Urine Clarity Sl. Cloudy Urine pH 7.0 Ur Specific [place] 1.010 Urine Protein 15 H Urine Glucose (UA) Normal Urine Ketones Negative Urine Occult Blood 250 H Urine Nitrite Negative Urine Bilirubin Negative Urine Urobilinogen Normal Ur Leukocyte Esterase 500 H Urine RBC 0-5 SEEN Urine WBC 5-10 SEEN Ur Squamous Epith Cells 0-5 SEEN Urine Bacteria 2+ Urine Mucus 0 SEEN - Rhythm Strip Rhythm Strip: Sinus Rhythm Rate: 75 Ectopy: PVC(s) - EKG Initial EKG Interpretation: Sinus Rhythm, No Acute Injury Pattern, LBBB, AV Block - 1st deg - Medical Decision Making Patient appears to have a urinary tract infection. This was sent for culture. She has a history of ESBL urosepsis for which she was admitted about a year ago. At times she has urinary symptoms with her UTIs, but other times she does not. This time she has had none. I suspect this may have been what caused her hypoglycemia tonight. Along with her significant hypokalemia, plan is for admission for treatment, monitoring, potassium replacement. Daughter states patient is actually been increasing her potassium dosing as an outpatient lately due to low potassium and this level is lower than she had been. Clinically patient looks well and not septic. She is conversive in full sentences. Her vital signs are stable. She is well enough for the floor, I did add blood cultures and a lactate only because of her prior history. ED Disposition - Plan for ED Patient: Disposition: Acute Care [facility] Diagnosis: UTI (urinary tract infection), Hypoglycemia due to type 2 diabetes mellitus, Hypokalemia Referrals: Rommel Arango MD [Primary Care Provider] -
--- NOTE | 2021-01-30 04:11 | CT_ITS ---
STUDY: CT BRAIN WITHOUT CONTRAST REASON FOR EXAM: Female, 80 years old. fall, headache RADIATION DOSAGE (If Supplied By Facility): CTDIvol = ( 44.99 ) mGy, DLP = ( 812.98 ) mGycm TECHNIQUE: Transaxial CT imaging of the brain was performed without administration of intravenous contrast material. Individualized dose optimization techniques were used for this CT. COMPARISON: 04/30/2013 CT brain report. FINDINGS: Normal soft tissue structures. Normal calvarium. There is mild cerebral atrophy with widening of the extra-axial spaces and ventricular dilatation. Normal white matter tracts of the cerebral hemispheres. Normal basal ganglia and thalami. Normal brainstem. Normal cerebellum. There is no intracranial hemorrhage. There are no findings of an acute ischemic infarction. Normal visualized paranasal sinuses. CT/Brain/Head without Contrast IMPRESSION: Involutional changes otherwise CT brain within normal limits for age. Specifically, no acute intracranial hemorrhage or space-occupying lesion. Electronically Signed: Jessica Hall MD at 4:48 EDT , Service support ,
[2021-01-30 04:54] LABS: Absolute Lymphocyte Count 0.51 X10^3/uL (0.83-4.51); Absolute Neutrophil Count 10.8 X10^3/uL (2.0-7.7); Basophil# 0.13 X10^3/uL; Eosinophil# 0.06 X10^3/uL; Eosinophils% 0.5 % (0-5); Hematocrit 39.4 % (37-47); Lymphocyte # 0.51 X10^3/ul (4.0); Mean Corp Hgb Conc 30.5 g/dL (32-36); Mean Corpuscular Hgb 25.9 pg (27.0-32.0); Mean Corpuscular Volume 85.1 fL (81-99); Mean Platelet Vol. 11.6 fl (6.2-12.0); Monocyte# 1.14 X10^3/uL; NRBC Flagged by Analyzer 0 % (0-5); Neutrophil # 10.79 X10^3/uL (2.7-7.7); POSITIVE DIFFERENTIAL YES; Platelet Count 278 K/mm3 (150-450); RBC Distribution Width CV 19.7 % (11.6-14.6); RBC Distribution Width SD 60.3 fl (35.1-43.9); Red Blood Count 4.63 M/mm3 (4.2-5.4); White Blood Count 12.7 K/mm3 (4.4-11.0)
[2021-01-30 04:55] LABS: Differential Indicated SCAN CRITERIA MET
[2021-01-30 05:31] LABS: Anion Gap 8 (5-15); BUN 42 mg/dL (7-18); BUN/Creat Ratio 30.4 RATIO (10-20); Calcium,Total 8.8 mg/dL (8.5-10.1); Chloride 99 mmol/L (98-107); Creatinine, Serum 1.38 mg/dL (0.55-1.02); EST Glomerular Filtration Rate 39 mL/min (>60); Est Glom Filt Rate - Afr Amer 47 mL/min (>60); Estimated Creatinine Clearance 27.34 ml/min; Glucose 84 mg/dL (74-106); Potassium 2.6 mmol/L (3.5-5.1); Sodium Level 135 mmol/L (136-145)
[2021-01-30 05:34] LABS: Mucous, Urine 0 SEEN /hpf (<or=2+)
[2021-01-30 05:36] LABS: Color, Urine Yellow (Yellow); Glucose, Dipstick Normal (Normal); Ketone-Dipstick Negative (Negative); Leukocyte Esterase-Dipstick 500 /ul (Negative); Nitrite-Dipstick Negative (Negative); Occult Blood-Urine 250 /ul (Negative); Protein-Dipstick 15 mg/dl (Negative); Urine Bilirubin Dipstick Negative (Negative); Urine Clarity Sl. Cloudy (Clear); Urine Urobilinogen Normal (Normal)
[2021-01-30 05:37] LABS: Bacteria 2+ /hpf (None Seen); Red Blood Cells-Urine 0-5 SEEN /hpf (0-5); Squamous Epithelial Cells - UA 0-5 SEEN /hpf (5-10); White Blood Cells 5-10 SEEN /hpf (0-5)
--- NOTE | 2021-01-30 06:10 | HP.PCM_ITS ---
Problem List (1) Insulin dependent diabetes mellitus Status: Chronic (2) Hypoglycemia due to type 2 diabetes mellitus Status: Acute (3) Hypokalemia Status: Acute (4) H/O coronary artery bypass surgery Status: Resolved Comment: CABG x 2: DAVIDSON-LAD, SVG-OM1 01/08/2005 (5) Chronic diastolic (congestive) heart failure Status: Chronic (6) Right bundle branch block (RBBB) Status: Chronic (7) Essential hypertension Status: Chronic (8) Hyperlipemia Status: Chronic History of Present Illness Date of Admission: 01/30/21 Chief Complaint: passed out at home with low blood sugar The patient is a 80 year old male patient with significant past medical history of insulin-dependent diabetes, congestive heart failure who presents to the emergency room after passing out at home. Per daughter who is a nurse reported that her blood sugar tested at home was in the 30s for which she received oral glucose and responded quite well. Despite a minor skin tear she became more alert and came to the ER for evaluation. Blood sugar in the emergency room was in the 80s, CT scan the head was negative for hemorrhage. The patient does live alone and was found to have a potassium of 2.6 and due to her frailty I was asked to evaluate the patient for admission for observation to correct her potassium and make sure she was safe on her feet prior to discharging home to live alone. Past Medical History Past Medical History (Chronic Problems): Chronic Problems (Last Reviewed 09/19/20 @ 15:[address] Long Jovel MD) Insulin dependent diabetes mellitus (Chronic) Atherosclerosis of coronary artery of [place] heart without angina pectoris (Chronic) Chronic diastolic (congestive) heart failure (Chronic) Nonrheumatic aortic (valve) stenosis (Chronic) Right bundle branch block (RBBB) (Chronic) Essential hypertension (Chronic) Hyperlipemia (Chronic) Medical History: Medical History (Last Reviewed 09/19/20 @ 15:[address] Long Jovel MD) Atherosclerosis of coronary artery of [place] heart without angina pectoris (Chronic) I25.[address] elevation myocardial infarction (STEMI) (Resolved) Onset Date: 04/2013 I25.2 Chronic diastolic (congestive) heart failure (Chronic) I50.32 Nonrheumatic aortic (valve) stenosis (Chronic) I35.0 Right bundle branch block (RBBB) (Chronic) I45.10 Essential hypertension (Chronic) I10 Hyperlipemia (Chronic) E78.5 Anxiety and depression F41.9, F32.9 Chronic respiratory failure J96.10 Diverticulosis K57.90 GERD (gastroesophageal reflux disease) K21.9 Hypothyroidism E03.9 Morbid obesity E66.01 Obstructive sleep apnea G47.33 Osteoarthritis M19.90 Type II diabetes mellitus E11.9 Chronic systolic (congestive) heart failure (Resolved) I50.22 Elevated troponin Onset Date: 01/23/20 R79.89 History of deep venous thrombosis Z86.718 History of pulmonary embolism Z86.711 Hypokalemia (Resolved) E87.6 Non-ischemic cardiomyopathy I42.8 Secondary pulmonary arterial hypertension (Resolved) I27.21 Severe sepsis Onset Date: 01/23/20 A41.9, R65.20 UTI (urinary tract infection) N39.0 Urinary tract infection (Resolved) N39.0 Bacteremia R78.81 Sepsis A41.9 Allergies Iodinated Contrast Media [CONTRASTS] Adverse Reaction (Verified 01/30/21 03:51) Hives Home Medications: Ambulatory Orders Medication Instructions Recorded Albuterol Aerosols [Ventolin 2.5 mg INHALATION Q4H 06/05/19 Aerosols] Aspirin [Aspirin, Baby] 81 mg PO DAILY@0800 06/05/19 Colchicine 0.6 mg PO PRN PRN 06/05/19 Folic Acid 1 mg PO DAILY 06/05/19 Insulin NPH Human Isophane 20 units SUBCUT BREAKFAST 06/05/19 [Humulin N] Insulin Regular, Human [Humulin R] 10 units SUBCUT QHS 06/05/19 Insulin Regular, Human [Humulin R] 16 units SUBCUT BREAKFAST 06/05/19 Isosorbide Mononitrate [Imdur] 60 mg PO BID 06/05/19 Levothyroxine [Synthroid] 75 mcg PO DAILY 06/05/19 Meclizine HCl [Antivert] 12.5 mg PO DAILY PRN PRN 06/05/19 Metoprolol Succinate [Toprol Xl] 25 mg PO DAILY 06/05/19 Nitroglycerin (INPATIENT USE) 0.4 mg SUBLINGUAL Q5M PRN 06/05/19 [Nitrostat] Omeprazole 40 mg PO DAILY 06/05/19 Polyethylene Glycol 3350 [Miralax] 17 gm PO DAILY 06/05/19 Potassium Chloride 30 meq PO BREAKFAST 06/05/19 Simvastatin 20 mg PO QHS 06/05/19 Methylcellulose [Citrucel] 850 gm PO DAILY 06/29/19 [place], Disposable [Easy Touch 1 ea DAILY #10 dis.needle 07/02/19 Hypodermic Needle] Nystatin Powder [Mycostatin Powder] 1 applic TOPICAL BID #1 bottle 07/02/19 Syringe, Disposable, 5 ml [Bulk 1 ea DAILY #10 disp.syrin 07/02/19 Syringe] cranberry 500 mg capsule 500 mg PO DAILY cap 09/22/19 insulin NPH isoph U-100 human 100 15 unit SUBCUT QHS ml 09/22/19 unit/mL subcutaneous suspension furosemide 40 mg tablet 40 mg PO BID tab 02/14/20 metolazone 2.5 mg tablet See Rx Instructions .ROUTE 07/10/20 .COMPLEX #42 tab allopurinol 300 mg tablet 300 mg PO DAILY tab 09/19/20 fluoxetine 40 mg capsule 40 cap PO DAILY 09/19/20 guaifenesin 600 mg tablet, 600 mg PO BID 09/19/20 extended release 12 hr Benzonatate [Tessalon [place]] 100 mg PO TID PRN PRN 01/30/21 Docusate Sodium [Colace] 100 mg PO DAILY PRN PRN 01/30/21 Estrogens, Conjugated [Premarin] 0.625 mg PO QODAY 01/30/21 Fluticasone 0.05% [Flonase Nasal 2 spray NASAL DAILY 01/30/21 [place]] Lactulose 10 gm PO BID 01/30/21 Montelukast [Singulair] 10 mg PO DAILY 01/30/21 Pantoprazole Sodium [Protonix] 20 mg PO DAILY 01/30/21 Potassium Chloride 20 meq PO QHS 01/30/21 Surgical History: Surgical History (Last Reviewed 09/19/20 @ 15:[address] Long Jovel MD) H/O coronary artery bypass surgery (Resolved) Onset Date: 01/08/05 Z95.1 CABG x 2: DAVIDSON-LAD, SVG-OM1 01/08/2005 History of coronary artery stent placement (Resolved) Onset Date: 08/02/15 Z95.5 CMF-SSS-Turbigp and Prox RCA w/ 4.5 x 28 mm VeriFLEX Stent 06/16/2014; [id number] RCA w/ 3.5 x 32 mm Promus Premier 11/02/2014; PCI-Cutting Balloon Angioplasty-Prox ISR-RCA 08/02/2015 History of bilateral knee replacement Z96.653 History of cholecystectomy Z90.49 History of colectomy Z90.49 History of herniorrhaphy Z98.890, Z87.19 Surgical History: colectomy - With colostomy and colostomy reversal, coronary bypass surgery, - - Coronary stents; 2 knee operations Lives: Alone Smoking Status: Former smoker Tobacco Use: Non-smoker - *Family History Maternal Family History: Family History (Last Reviewed 09/19/20 @ 15:[address] Long Jovel MD) Mother Heart disease History Items: Heart Disease, - - Her mother at 96 following complications of surgery from broken hip. Paternal Family History: Family History (Last Reviewed 09/19/20 @ 15:[address] Long Jovel MD) Mother Heart disease History Items: - - Patient do not know her paternal medical history. Review of Systems Constitutional: Reports: Weakness. Denies: Chills, Fever, Weight Change HEENT: Denies: Head Aches, Sinus Congestion, Sinus Drainage Cardiovascular: Denies: Chest Pain, Palpitations Respiratory: Denies: Cough, Shortness of breath at rest, Sputum production Gastrointestinal: Denies: Abdominal Pain, Nausea, Vomiting Genitourinary: Denies: Dysuria Musculoskeletal: Denies: Joint Pain, Joint Tenderness Skin: Denies: Rash, Wounds Neurological: Denies: Numbness, Tingling, Focal weakness Psychiatric: Denies: Anxiety, Depression, Homicidal Ideations, Suicidal Ideations Hematologic/ Lymphatic: Denies: Easy Bruising, Easy Bleeding VTE Information - Inpt Only VTE Present on Admission: No VTE Mechan Device Prophylaxis: None VTE Pharm Prophylaxis ordered?: Yes - Physical Exam Vitals/I&O's: Vital Signs Temp Pulse Resp BP Pulse Ox 98.7 F 51 L 16 107/43 L 99 01/30/21 03:46 01/30/21 05:51 01/30/21 05:51 01/30/21 05:51 01/30/21 05:51 Oxygen Delivery Method Room Air Weight: 201 lb 0.985 oz Body Mass Index (BMI) 35.6 General: Alert, Oriented x3, Cooperative HEENT: Atraumatic, PERRLA, EOMI, Normocephalic Neck: Supple, No JVD Lungs: Clear to auscultation, Normal air movement, No rhonchi, No wheeze, No rales Cardiovascular: Regular rate, Regular Rhythm, Normal S1, Normal S2 Abdomen: Bowel Sounds Present, Soft, Non Tender, Obese Extremities: No edema Skin: No rashes, - - bruising on both forearms Musculoskeletal: No Tenderness to Palpation of Joints or Extremities Neurological: Neuro grossly intact Psych/Mental Status: Normal Affect, Appropriate Laboratory Results 01/30/21 04:47: WBC 12.7 H, RBC 4.63, Hgb 12.0, Hct 39.4, MCV 85.1, MCH 25.9 L, MCHC 30.5 L, RDW Std Deviation 60.3 H, RDW Coeff of [place] 19.7 H, Plt Count 278, MPV 11.6, Immature Gran % (Auto) 0.500, Neut % (Auto) 85.0 H, Lymph % (Auto) 4.0 L, [place] % (Auto) 9.0, Eos % (Auto) 0.5, Baso % (Auto) 1.0, Absolute Neuts (auto) 10.8 H, Absolute Lymphs (auto) 0.51 L, Nucleated RBC % 0 01/30/21 04:47: Sodium 135 L, Potassium 2.6 L*, Chloride 99, Carbon Dioxide 28.0, Anion Gap 8, BUN 42 H, Creatinine 1.38 H, Estim Creat Clear Calc 27.34, Est GFR (MDRD) Af Amer 47 L, Est GFR (MDRD) Non-Af 39 L, BUN/Creatinine Ratio 30.4 H, Glucose 84, Calcium 8.8, Troponin I 0.024 01/30/21 05:30: Urine Color Yellow, Urine Clarity Sl. Cloudy, Urine pH 7.0, Ur Specific [place] 1.010, Urine Protein 15 H, Urine Glucose (UA) Normal, Urine K etones Negative, Urine Occult Blood 250 H, Urine Nitrite Negative, Urine Bilirubin Negative, Urine Urobilinogen Normal, Ur Leukocyte Esterase 500 H, U rine RBC 0-5 SEEN, Urine WBC 5-10 SEEN, Ur Squamous Epith Cells 0-5 SEEN, Urine Bacteria 2+, Urine Mucus 0 SEEN Current Medications Potassium Chloride () 10 meq in 100 mls @ 100 mls/hr IV BOLUS X1 ONE Stop: 01/30/21 06:44 Ertapenem 1 gm/ Sodium (Chloride) 60 mls @ 100 mls/hr IV X1 ONE Stop: 01/30/21 06:34 Assessment/Plan All Active Problems (Last Reviewed 09/19/20 @ 15:[address] Long Jovel MD) UTI (urinary tract infection) (Acute) Hypoglycemia due to type 2 diabetes mellitus (Acute) Hypokalemia (Acute) H/O coronary artery bypass surgery (Resolved 01/08/05) History of coronary artery stent placement (Resolved 08/02/15) History of ST elevation myocardial infarction (STEMI) (Resolved 04/2013) Bacteremia (Resolved) Chronic systolic (congestive) heart failure (Resolved) Hypokalemia (Resolved) Secondary pulmonary arterial hypertension (Resolved) Shortness of breath (Resolved) Urinary tract infection (Resolved) Chronic Problems (Last Reviewed 09/19/20 @ 15:[address] Long Jovel MD) Insulin dependent diabetes mellitus (Chronic) Atherosclerosis of coronary artery of [place] heart without angina pectoris (Chronic) Chronic diastolic (congestive) heart failure (Chronic) Nonrheumatic aortic (valve) stenosis (Chronic) Right bundle branch block (RBBB) (Chronic) Essential hypertension (Chronic) Hyperlipemia (Chronic) Plan 1. Syncopal episode explained by hypoglycemia?admit patient for observation and repeat blood sugar 2. Hypokalemia?likely secondary to diuretic will replace potassium in iv fluid 3. Diabetes?we will place patient on sliding scale insulin while here 4. DVT prophylaxis?low molecular weight heparin 5. Hypertension?continue home medication 6. Hyperlipidemia?continue statin 7. Congestive heart failure chronic?continue diuretic but please consider potassium sparing diuretic as potential option to help control her fluid balance without disturbing her potassium. This has been managed by Dr. Jovel and her daughter was adamant that this not be changed at this time. OBSV E&M: [id number] Initial observation care L2
[2021-01-30] MEDS: Potassium Chloride 10mEq/100mL 10 MEQ/100 ML IV.SOLN. 100 MEQ IV BOLUS (06:31)
[2021-01-30] MEDS: Potassium Chloride Oral Tablet 20 MEQ 40 MEQ PO (06:34)
[2021-01-30] MEDS: traMADol 50 MG Tablet PO (06:38)
[2021-01-30 06:44] LABS: Lactic Acid 1.7 mmol/L (0.4-1.9)
[2021-01-30] MEDS: Methylcellulose 2 GM Bottle PO (09:46)
[2021-01-30] MEDS: Fluticasone 0.05% 1 SPRAY NASAL.SRY 2 SPRAY NASAL (09:46)
[2021-01-30] MEDS: Lactulose 20 GM/30 ML UDC 10 GM PO ×2 (09:46→20:57)
[2021-01-30] MEDS: Aspirin 81 MG TAB.CHEW PO (09:46)
[2021-01-30] MEDS: Folic Acid 1 MG Tablet PO (09:46)
[2021-01-30] MEDS: Levothyroxine 75 MCG Tablet PO (09:47)
[2021-01-30] MEDS: Polyethylene Glycol 3350 17 GM PACKET PO (09:47)
[2021-01-30] MEDS: Furosemide 40 MG Tablet PO ×2 (09:47→17:41)
[2021-01-30] MEDS: guaiFENesin 600 MG Tablet PO ×2 (09:47→20:57)
[2021-01-30] MEDS: Allopurinol 300 MG Tablet PO (09:47)
[2021-01-30] MEDS: Montelukast 10 MG Tablet PO (09:47)
[2021-01-30] MEDS: Metoprolol(XL)Succ 25 MG Tablet PO (09:47)
[2021-01-30] MEDS: Isosorbide Mononitrate 60 MG Tablet PO ×2 (09:47→20:57)
[2021-01-30] MEDS: FLUoxetine 20 MG Capsule 40 MG PO (09:47)
[2021-01-30] MEDS: Pantoprazole Sodium 20 MG Tablet PO (09:48)
[2021-01-30 10:05] LABS: Bedside Glucose 74 mg/dL (70-110)
[2021-01-30] MEDS: HYDROcodone Bitartrate/Apap 5/325 Tablet PO ×2 (11:45→20:57)
--- NOTE | 2021-01-30 14:37 | PCM.PN.HOSP ---
Patient Problems: Active and Suspected Problems (Last Reviewed 09/19/20 @ 15:[address] Long Jovel MD) UTI (urinary tract infection) (Acute) Hypoglycemia due to type 2 diabetes mellitus (Acute) Hypokalemia (Acute) Subjective: Patient seen and examined. She was admitted with a complaint of syncope. She was found to have hypoglycemia, as daughter checked her blood sugar and it was in the 30s. She was also found to be hypokalemic. She is being managed for hypoglycemia and hypokalemia as well as debility. Vitals/I&O's: Vital Signs Temp Pulse Resp BP Pulse Ox 97.6 F L 65 18 111/45 L 98 01/30/21 09:52 01/30/21 09:52 01/30/21 09:52 01/30/21 09:52 01/30/21 09:52 Oxygen Delivery Method Room Air Weight: 195 lb 12.328 oz Body Mass Index (BMI) 33.5 Intake and Output for Last 24 Hours 01/28/21 01/29/21 01/30/21 23:59 23:59 23:59 Intake Total 640 / 640 Balance 640 / 640 General: Alert, Oriented x3, Cooperative, No apparent distress HEENT: Atraumatic, PERRLA, EOMI, Normocephalic Oral: Dry Mucosa Neck: Supple, No JVD, Negative Carotid Bruits Lungs: Clear to auscultation, Normal air movement, No rhonchi, No wheeze, No rales Cardiovascular: Regular rate, Regular Rhythm, Normal S1, Normal S2, No murmurs Abdomen: Bowel Sounds Present, Soft, Non Tender, Non-Distended, No Hepato-splenomegaly Extremities: No clubbing, No cyanosis, No edema, Capillary Refill Less than 3 Seconds Skin: No rashes, No breakdown, - - has extensive ecchymotic patches on UEs, due to mechanical fall Musculoskeletal: No Tenderness to Palpation of Joints or Extremities Lymphatic: No Cervical, Supraclavicular, or Inguinal Adenopathy Neurological: Cranial nerves II-XII grossly intact, Neuro grossly intact, Motor Exam 5/5 strength throughout Psych/Mental Status: Normal Affect, Appropriate, Alert and oriented to time, place, person, mood and affect Microbiology Past 72 Hours 01/30/21 05:30 Urine, Clean Catch Urine Culture - Preliminary Culture exhibits no growth. Laboratory Results 01/30/21 04:47: WBC 12.7 H, RBC 4.63, Hgb 12.0, Hct 39.4, MCV 85.1, MCH 25.9 L, MCHC 30.5 L, RDW Std Deviation 60.3 H, RDW Coeff of [place] 19.7 H, Plt Count 278, MPV 11.6, Immature Gran % (Auto) 0.500, Neut % (Auto) 85.0 H, Lymph % (Auto) 4.0 L, Real % (Auto) 9.0, Eos % (Auto) 0.5, Baso % (Auto) 1.0, Absolute Neuts (auto) 10.8 H, Absolute Lymphs (auto) 0.51 L, Nucleated RBC % 0 01/30/21 04:47: Sodium 135 L, Potassium 2.6 L*, Chloride 99, Carbon Dioxide 28.0, Anion Gap 8, BUN 42 H, Creatinine 1.38 H, Estim Creat Clear Calc 27.34, Est GFR (MDRD) Af Amer 47 L, Est GFR (MDRD) Non-Af 39 L, BUN/Creatinine Ratio 30.4 H, Glucose 84, Calcium 8.8, Troponin I 0.024 01/30/21 04:47: Magnesium 2.0 01/30/21 05:30: Urine Color Yellow, Urine Clarity Sl. Cloudy, Urine pH 7.0, Ur Specific [place] 1.010, Urine Protein 15 H, Urine Glucose (UA) Normal, Urine Ketones Negative, Urine Occult Blood 250 H, Urine Nitrite Negative, Urine Bilirubin Negative, Urine Urobilinogen Normal, Ur Leukocyte Esterase 500 H, Urine RBC 0-5 SEEN, Urine WBC 5-10 SEEN, Ur Squamous Epith Cells 0-5 SEEN, Urine Bacteria 2+, Urine Mucus 0 SEEN 01/30/21 06:15: Lactic Acid 1.7 01/30/21 09:57: POC Glucose 74 Diagnostic Data Chest X-Ray 01/30/21 04:09 IMPRESSION: Possible mild vascular congestion. Cardiomegaly. Cannot exclude left-sided pleural effusion. Electronically Signed: Jessica Hall MD at 4:45 EDT , Service support , Brain CT 01/30/21 04:11 IMPRESSION: Involutional changes otherwise CT brain within normal limits for age. Specifically, no acute intracranial hemorrhage or space-occupying lesion. Electronically Signed: Jessica Hall MD at 4:48 EDT , Service support , Current Medications Hydrocodone Bitart/Acetaminophen (Hydrocodone Bitartrate/Apap 5/325 Tablet) 1 tablet PO Q6H PRN PRN PRN Reason: Pain Score 1-10 Last Admin: 01/30/21 11:45 Dose: 1 tablet Documented by: Allopurinol (Allopurinol 300 Mg Tablet) 300 mg PO DAILY [facility] Last Admin: 01/30/21 09:47 Dose: 300 mg Documented by: Aspirin (Aspirin 81 Mg Tab.Chew) 81 mg PO DAILY@0800 [facility] Last Admin: 01/30/21 09:46 Dose: 81 mg Documented by: Atorvastatin Calcium (Atorvastatin Calcium 10 Mg Tablet) 10 mg PO QHS [facility] Docusate Sodium (Docusate Sodium 100 Mg Capsule) 100 mg PO DAILY PRN PRN PRN Reason: Constipation Estrogens Conjugated (Estrogens,Conj. 1 Tube) 1 dose VAGINAL MoWeFr [facility] Fluoxetine HCl (Fluoxetine 20 Mg Capsule) 40 mg PO DAILY [facility] Last Admin: 01/30/21 09:47 Dose: 40 mg Documented by: Fluticasone Propionate (Fluticasone 0.05% 1 [place] Nasal.Sry) 2 spray NASAL DAILY [facility] Last Admin: 01/30/21 09:46 Dose: 2 spray Documented by: Folic Acid (Folic Acid 1 Mg Tablet) 1 mg PO DAILY@0800 [facility] Last Admin: 01/30/21 09:46 Dose: 1 mg Documented by: Furosemide (Furosemide 40 Mg Tablet) 40 mg PO BIDLX [facility] Last Admin: 01/30/21 09:47 Dose: 40 mg Documented by: Guaifenesin (Guaifenesin 600 Mg Tablet) 600 mg PO BID [facility] Last Admin: 01/30/21 09:47 Dose: 600 mg Documented by: Sodium Chloride () 250 mls @ 15 mls/hr IV .[id number] PRN PRN Reason: Additional IVPB Infusion Potassium Chloride/Sodium Chloride () 1,000 mls @ 75 mls/hr IV .[id number] [facility] Last Admin: 01/30/21 08:05 Dose: 75 mls/hr Documented by: Influenza Virus Vaccine Quadrival (Influenza Vaccine (6mos+)/Pf 0.5 Ml Syringe) 0.5 ml IM .ONCE ONE Stop: 01/31/21 10:01 Isosorbide Mononitrate (Isosorbide Mononitrate 60 Mg Tablet) 60 mg PO BID [facility] Last Admin: 01/30/21 09:47 Dose: 60 mg Documented by: Lactulose (Lactulose 20 Gm/30 Ml Udc) 10 gm PO BID [facility] Last Admin: 01/30/21 09:46 Dose: 10 gm Documented by: Levothyroxine Sodium (Levothyroxine 75 Mcg Tablet) 75 mcg PO DAILY@0600 [facility] Last Admin: 01/30/21 09:47 Dose: 75 mcg Documented by: Methylcellulose (Methylcellulose 2 Gm Bottle) 2 gm PO DAILY [facility] Last Admin: 01/30/21 09:46 Dose: 2 gm Documented by: Metolazone (Metolazone 2.5 Mg Tablet) 2.5 mg PO MoWeFr@1000 [facility] Metoprolol Succinate (Metoprolol(Xl)Succ 25 Mg Tablet) 25 mg PO DAILY [facility] Last Admin: 01/30/21 09:47 Dose: 25 mg Documented by: Montelukast Sodium (Montelukast 10 Mg Tablet) 10 mg PO DAILY [facility] Last Admin: 01/30/21 09:47 Dose: 10 mg Documented by: Pantoprazole Sodium (Pantoprazole Sodium 20 Mg Tablet) 20 mg PO DAILY@0600 [facility] Last Admin: 01/30/21 09:48 Dose: 20 mg Documented by: Polyethylene Glycol (Polyethylene Glycol 3350 17 Gm Packet) 17 gm PO DAILY [facility] Last Admin: 01/30/21 09:47 Dose: 17 gm Documented by: Sodium Chloride (0.9% Saline Lock 10 Ml Syringe) 10 - 40 ml IV UD PRN PRN Reason: SALINE FLUSH Medical Necessity - Tobacco Use Smoking Status: Former smoker Tobacco Use: Non-smoker Assessment/Plan All Active Problems (Last Reviewed 09/19/20 @ 15:[address] Long Jovel MD) UTI (urinary tract infection) (Acute) Hypoglycemia due to type 2 diabetes mellitus (Acute) Hypokalemia (Acute) H/O coronary artery bypass surgery (Resolved 01/08/05) History of coronary artery stent placement (Resolved 08/02/15) History of ST elevation myocardial infarction (STEMI) (Resolved 04/2013) Bacteremia (Resolved) Chronic systolic (congestive) heart failure (Resolved) Hypokalemia (Resolved) Secondary pulmonary arterial hypertension (Resolved) Shortness of breath (Resolved) Urinary tract infection (Resolved) #Syncope due to hypoglycemia resolved. Holding h ome diabetes medications PT/OT on board fall precautions #Hypokalemia: K was 2.6. Being replaced. Magnesium is 2. #Type 2 diabetes mellitus diabetes meds on hold due to hypoglycemia ISS. Accuchecks ACHS #Hypertension: on metoprolol #Hyperlipidemia: on statin #HFpEf; on lasix and metolazone #Hypothyroidism: on synthroid DVT prophylaxis: lovenox
[2021-01-30 16:30] LABS: Bedside Glucose 178 mg/dL (70-110)
[2021-01-30] MEDS: Atorvastatin Calcium 10 MG Tablet PO (20:57)
[2021-01-31] VITALS (10 sets, daily range): BP systolic 106–124; BP diastolic 45–67; PULSE 70–80; RESP 16–18; TEMP 36.6–37.1; O2SAT 94–97
[2021-01-31 05:46] LABS: Absolute Lymphocyte Count 1.35 X10^3/uL (0.83-4.51); Absolute Neutrophil Count 4.6 X10^3/uL (2.0-7.7); Basophil# 0.14 X10^3/uL; Basophil% 1.8 % (0-1); Eosinophil# 0.48 X10^3/uL; Eosinophils% 6.3 % (0-5); Hematocrit 36.9 % (37-47); Hemoglobin 11.3 g/dL (12.0-15.0); Lymphocyte # 1.35 X10^3/ul (4.0); Lymphocyte % 17.6 % (19-41); Mean Corp Hgb Conc 30.6 g/dL (32-36); Mean Corpuscular Hgb 25.8 pg (27.0-32.0); Mean Corpuscular Volume 84.2 fL (81-99); Mean Platelet Vol. 11.4 fl (6.2-12.0); Monocyte# 1.05 X10^3/uL; Monocyte% 13.7 % (0-10); NRBC Flagged by Analyzer 0 % (0-5); Neutrophil # 4.61 X10^3/uL (2.7-7.7); Neutrophil % 60.3 % (47-70); Platelet Count 265 K/mm3 (150-450); RBC Distribution Width CV 19.5 % (11.6-14.6); RBC Distribution Width SD 59.2 fl (35.1-43.9); Red Blood Count 4.38 M/mm3 (4.2-5.4); White Blood Count 7.7 K/mm3 (4.4-11.0)
[2021-01-31 06:19] LABS: Anion Gap 7 (5-15); BUN 33 mg/dL (7-18); Calcium,Total 8.9 mg/dL (8.5-10.1); Chloride 100 mmol/L (98-107); Creatinine, Serum 1.18 mg/dL (0.55-1.02); EST Glomerular Filtration Rate 47 mL/min (>60); Est Glom Filt Rate - Afr Amer 57 mL/min (>60); Estimated Creatinine Clearance 33.38 ml/min; Glucose 146 mg/dL (74-106); Potassium 2.5 mmol/L (3.5-5.1); Sodium Level 136 mmol/L (136-145)
--- NOTE | 2021-01-31 06:20 | NURSING ---
Pts primary rn aware of critical lab value of k being 2.5 this am.
[2021-01-31] MEDS: Potassium Chloride Oral Tablet 20 MEQ 60 MEQ PO (06:50)
[2021-01-31] MEDS: Levothyroxine 75 MCG Tablet PO (06:50)
[2021-01-31] MEDS: Pantoprazole Sodium 20 MG Tablet PO (06:50)
[2021-01-31] MEDS: Methylcellulose 2 GM Bottle PO (09:16)
[2021-01-31] MEDS: Lactulose 20 GM/30 ML UDC 10 GM PO ×2 (09:16→22:12)
[2021-01-31] MEDS: Polyethylene Glycol 3350 17 GM PACKET PO (09:16)
[2021-01-31] MEDS: HYDROcodone Bitartrate/Apap 5/325 Tablet PO (09:16)
[2021-01-31] MEDS: Allopurinol 300 MG Tablet PO (09:18)
[2021-01-31] MEDS: guaiFENesin 600 MG Tablet PO ×2 (09:18→22:14)
[2021-01-31] MEDS: Aspirin 81 MG TAB.CHEW PO (09:18)
[2021-01-31] MEDS: FLUoxetine 20 MG Capsule 40 MG PO (09:18)
[2021-01-31] MEDS: Metoprolol(XL)Succ 25 MG Tablet PO (09:18)
[2021-01-31] MEDS: Montelukast 10 MG Tablet PO (09:18)
[2021-01-31] MEDS: Folic Acid 1 MG Tablet PO (09:18)
[2021-01-31] MEDS: Estrogens,Conj. 1 Tube 1 DOSE VAGINAL (09:18)
[2021-01-31] MEDS: Isosorbide Mononitrate 60 MG Tablet PO ×2 (09:18→22:14)
[2021-01-31] MEDS: Furosemide 40 MG Tablet PO ×2 (09:18→16:20)
[2021-01-31] MEDS: Metolazone 2.5 MG Tablet PO (09:18)
[2021-01-31] MEDS: Fluticasone 0.05% 1 SPRAY NASAL.SRY 2 SPRAY NASAL (09:19)
[2021-01-31] MEDS: Potassium Chloride 10mEq/100mL 10 MEQ/100 ML IV.SOLN. 100 MEQ IV BOLUS ×4 (11:10→14:27)
--- NOTE | 2021-01-31 11:10 | CASEMGMT ---
REGGIE QUEVEDO assessment: Face to Face with patient for initial transition planning/care coordination assessment. RN EMY introduced self and role at [facility], pt voices understanding and consents to assessment. Pt is lying in bed in no distress on room air. Pt is A/Ox4 and answers all questions appropriately. Care providers, pharmacy, and demographics verified. Presentation: Pt fell out of bed and family treated for low blood sugar. Nothing given by squad and no other info given to this nurse. Admitting dx: Hypokalemia PCP: [facility] Specialists: Pt states no current specialists. Preferred Pharmacy: [facility] [place] Insurance: MCR A/B, [employer] Prescription Benefit: Yes Living Will/HPOA: Pt states has LW/HPOA and is aware that they are not on file at [facility]. Pt states her kids are HPOA and she will have Steff, her daughter, bring copies in. LNOK: Steff Betancourt, daughter; Jerry Matias, son Living Arrangements: Pt states lives alone on main level of 2 story home and states no concerns at home. Pt states is independent with ADL's. Pt states kids live close and help as needed. Transportation: Pt states her children drive and states no transportation concerns. DME/HHC: Pt states has the following DME: walker, w/c, medical alert, [place] shower, raised toilet seat, grab bars, cpap, and 2-3L home oxygen to bleed into cpap thru [facility] and pt states also uses prn. Pt states has had HHC in the past but has not been to SNF. Pt is interested in HHC at discharge and pt provided a list of HHC providers including quality and resource use data and consistent with the pt's preferred geographic region, medical needs, and insurance network. CM to check back for pt choice. Pt states no concerns with going home at time of discharge. Pt is retired. Pt states does not smoke cigarettes or drink ETOH. Pt states no further concerns/needs. CM to follow for any further discharge planning/needs. Advised pt to ask for CM if any further questions/concerns/needs arise, voices understanding. Pt Goal: Home Plan: Home w/ HHC. [place] REGGIE QUEVEDO
[2021-01-31] MEDS: Insulin Lispro 100 UNIT/ML INSULN.PEN SC ×3 (11:24→22:12)
--- NOTE | 2021-01-31 11:28 | PN_ITS ---
Patient Problems: Active and Suspected Problems (Last Reviewed 09/19/20 @ 15:[address] Long Jovel MD) UTI (urinary tract infection) (Acute) Hypoglycemia due to type 2 diabetes mellitus (Acute) Hypokalemia (Acute) Subjective: Patient seen and examined. She has no complaints today. She had an uneventful night. Review of systems otherwise negative. Potassium still remains low and is 2.5. Vitals/I&O's: Vital Signs Temp Pulse Resp BP Pulse Ox 97.8 F 72 18 116/61 97 01/31/21 08:51 01/31/21 09:18 01/31/21 08:51 01/31/21 08:51 01/31/21 08:51 Oxygen Delivery Method Room Air Weight: 195 lb 12.328 oz Body Mass Index (BMI) 33.5 Intake and Output for Last 24 Hours 01/29/21 01/30/21 01/31/21 23:59 23:59 23:59 Intake Total 2643.75 / 2643.75 1790.00 / 1790.00 Output Total 1550 / 1550 2100 / 2100 Balance 1093.75 / 1093.75 -310.00 / -310.00 General: Alert, Oriented x3, Cooperative, No apparent distress HEENT: Atraumatic, PERRLA, EOMI, Normocephalic Oral: Dry Mucosa Neck: Supple, No JVD, Negative Carotid Bruits Lungs: Clear to auscultation, Normal air movement, No rhonchi, No wheeze, No rales Cardiovascular: Regular rate, Regular Rhythm, Normal S1, Normal S2, No murmurs Abdomen: Bowel Sounds Present, Soft, Non Tender, Non-Distended, No Hepato- splenomegaly Extremities: No clubbing, No cyanosis, No edema, Capillary Refill Less than 3 Seconds Skin: No rashes, No breakdown, - - has extensive ecchymotic patches on UEs, due to mechanical fall Musculoskeletal: No Tenderness to Palpation of Joints or Extremities Lymphatic: No Cervical, Supraclavicular, or Inguinal Adenopathy Neurological: Cranial nerves II-XII grossly intact, Neuro grossly intact, Motor Exam 5/5 strength throughout Psych/Mental Status: Normal Affect, Appropriate, Alert and oriented to time, place, person, mood and affect Microbiology Past 72 Hours 01/30/21 05:30 Urine, Clean Catch Urine Culture - Preliminary Presumptive E. coli Laboratory Results 01/30/21 16:28: POC Glucose 178 H 01/31/21 05:20: WBC 7.7, RBC 4.38, Hgb 11.3 L, Hct 36.9 L, MCV 84.2, MCH 25.8 L, MCHC 30.6 L, RDW Std Deviation 59.2 H, RDW Coeff of Oscar 19.5 H, Plt Count 265, MPV 11.4, Immature Gran % (Auto) 0.300, Neut % (Auto) 60.3, Lymph % (Auto) 17.6 L, [place] % (Auto) 13.7 H, Eos % (Auto) 6.3 H, Baso % (Auto) 1.8 H, Absolute Neuts (auto) 4.6, Absolute Lymphs (auto) 1.35, Nucleated RBC % 0 01/31/21 05:20: Sodium 136, Potassium 2.5 L*, Chloride 100, Carbon Dioxide 29.0, Anion Gap 7, BUN 33 H, Creatinine 1.18 H, Estim Creat Clear Calc 33.38, Est GFR (MDRD) Af Amer 57 L, Est GFR (MDRD) Non-Af 47 L, BUN/Creatinine Ratio 28.0 H, Glucose 146 H, Calcium 8.9, Magnesium 2.0 Current Medications Hydrocodone Bitart/Acetaminophen (Hydrocodone Bitartrate/Apap 5/325 Tablet) 1 tablet PO Q6H PRN PRN PRN Reason: Pain Score 1-10 Last Admin: 01/31/21 09:16 Dose: 1 tablet Documented by: Allopurinol (Allopurinol 300 Mg Tablet) 300 mg PO DAILY [facility] Last Admin: 01/31/21 09:18 Dose: 300 mg Documented by: Aspirin (Aspirin 81 Mg Tab.Chew) 81 mg PO DAILY@0800 [facility] Last Admin: 01/31/21 09:18 Dose: 81 mg Documented by: Atorvastatin Calcium (Atorvastatin Calcium 10 Mg Tablet) 10 mg PO QHS [facility] Last Admin: 01/30/21 20:57 Dose: 10 mg Documented by: Dextrose (Dextrose 50%-Water 25 Gm/50 Ml Disp.Syrin) 0 gm IV X1 PRN; Protocol PRN Reason: Hypoglycemia Docusate Sodium (Docusate Sodium 100 Mg Capsule) 100 mg PO DAILY PRN PRN PRN Reason: Constipation Estrogens Conjugated (Estrogens,Conj. 1 Tube) 1 dose VAGINAL MoWeFr [facility] Last Admin: 01/31/21 09:18 Dose: 1 dose Documented by: Fluoxetine HCl (Fluoxetine 20 Mg Capsule) 40 mg PO DAILY [facility] Last Admin: 01/31/21 09:18 Dose: 40 mg Documented by: Fluticasone Propionate (Fluticasone 0.05% 1 [place] Nasal.Sry) 2 spray NASAL DAILY [facility] Last Admin: 01/31/21 09:19 Dose: 2 spray Documented by: Folic Acid (Folic Acid 1 Mg Tablet) 1 mg PO DAILY@0800 [facility] Last Admin: 01/31/21 09:18 Dose: 1 mg Documented by: Furosemide (Furosemide 40 Mg Tablet) 40 mg PO BIDLX [facility] Last Admin: 01/31/21 09:18 Dose: 40 mg Documented by: Glucagon (Glucagon 1 Mg/Ml Syringe) 1 mg IM .X1 PRN PRN Reason: Hypoglycemia Guaifenesin (Guaifenesin 600 Mg Tablet) 600 mg PO BID [facility] Last Admin: 01/31/21 09:18 Dose: 600 mg Documented by: Sodium Chloride () 250 mls @ 15 mls/hr IV .[id number] PRN PRN Reason: Additional IVPB Infusion Potassium Chloride/Sodium Chloride () 1,000 mls @ 75 mls/hr IV .[id number] [facility] Last Infusion: 01/31/21 11:12 Dose: 0 mls/hr Documented by: Potassium Chloride () 10 meq in 100 mls @ 100 mls/hr IV BOLUS Q1H [facility] Stop: 01/31/21 14:59 Last Admin: 01/31/21 11:10 Dose: 100 mls/hr Documented by: Insulin Human Lispro (Insulin Lispro 100 Unit/Ml Insuln.Pen) 0 unit SC [facility]; Protocol Last Admin: 01/31/21 11:24 Dose: 2 u Documented by: Isosorbide Mononitrate (Isosorbide Mononitrate 60 Mg Tablet) 60 mg PO BID [facility] Last Admin: 01/31/21 09:18 Dose: 60 mg Documented by: Lactulose (Lactulose 20 Gm/30 Ml Udc) 10 gm PO BID [facility] Last Admin: 01/31/21 09:16 Dose: 10 gm Documented by: Levothyroxine Sodium (Levothyroxine 75 Mcg Tablet) 75 mcg PO DAILY@0600 [facility] Last Admin: 01/31/21 06:50 Dose: 75 mcg Documented by: Methylcellulose (Methylcellulose 2 Gm Bottle) 2 gm PO DAILY [facility] Last Admin: 01/31/21 09:16 Dose: 2 gm Documented by: Metolazone (Metolazone 2.5 Mg Tablet) 2.5 mg PO MoWeFr@1000 [facility] Last Admin: 01/31/21 09:18 Dose: 2.5 mg Documented by: Metoprolol Succinate (Metoprolol(Xl)Succ 25 Mg Tablet) 25 mg PO DAILY [facility] Last Admin: 01/31/21 09:18 Dose: 25 mg Documented by: Montelukast Sodium (Montelukast 10 Mg Tablet) 10 mg PO DAILY [facility] Last Admin: 01/31/21 09:18 Dose: 10 mg Documented by: Pantoprazole Sodium (Pantoprazole Sodium 20 Mg Tablet) 20 mg PO DAILY@0600 [facility] Last Admin: 01/31/21 06:50 Dose: 20 mg Documented by: Polyethylene Glycol (Polyethylene Glycol 3350 17 Gm Packet) 17 gm PO DAILY [facility] Last Admin: 01/31/21 09:16 Dose: 17 gm Documented by: Sodium Chloride (0.9% Saline Lock 10 Ml Syringe) 10 - 40 ml IV UD PRN PRN Reason: SALINE FLUSH STROKE Vital Signs/Narrative: Vital Signs Temp Pulse Resp BP Pulse Ox 01/31/21 09:18 72 01/31/21 08:51 97.8 F 72 18 116/61 97 Medical Necessity - Tobacco Use Smoking Status: Former smoker Tobacco Use: Non-smoker Assessment/Plan All Active Problems (Last Reviewed 09/19/20 @ 15:[address] 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 * PT/OT on board * fall precautions * #Hypokalemia: K was 2.5. will replace aggressively. #Type 2 diabetes mellitus * diabetes meds on hold due to hypoglycemia * ISS. Accuchecks ACHS * * #Hypertension: on metoprolol #Hyperlipidemia: on statin #HFpEf; on lasix and metolazone. Doesnt look fluid overloaded. Will hold off on metolazone for now due to severe hypokalemia #Hypothyroidism: on synthroid DVT prophylaxis: lovenox Inpatient E&M: 00628 Subs Hosp L2
[2021-01-31 11:36] LABS: Bedside Glucose 256 mg/dL (70-110)
[2021-01-31] MEDS: Ceftriaxone 1 GM/50 ML BAG IV (12:15)
[2021-01-31] MEDS: Enoxaparin 40 MG/0.4 ML Syringe SC (15:01)
[2021-01-31 16:35] LABS: Bedside Glucose 205 mg/dL (70-110)
[2021-01-31 17:02] LABS: Anion Gap 6 (5-15); BUN 30 mg/dL (7-18); BUN/Creat Ratio 23.8 RATIO (10-20); Calcium,Total 8.5 mg/dL (8.5-10.1); Chloride 98 mmol/L (98-107); Creatinine, Serum 1.26 mg/dL (0.55-1.02); EST Glomerular Filtration Rate 43 mL/min (>60); Est Glom Filt Rate - Afr Amer 53 mL/min (>60); Estimated Creatinine Clearance 31.26 ml/min; Glucose 210 mg/dL (74-106); Potassium 3.5 mmol/L (3.5-5.1); Sodium Level 132 mmol/L (136-145)
[2021-01-31] MEDS: Atorvastatin Calcium 10 MG Tablet PO (22:14)
[2021-01-31 22:25] LABS: Bedside Glucose 216 mg/dL (70-110)
[2021-02-01] VITALS (10 sets, daily range): BP systolic 111–120; BP diastolic 56–62; PULSE 67–85; RESP 16–18; TEMP 36.7–36.9; O2SAT 92–94
[2021-02-01 05:35] LABS: Absolute Lymphocyte Count 1.24 X10^3/uL (0.83-4.51); Absolute Neutrophil Count 5.6 X10^3/uL (2.0-7.7); Basophil# 0.12 X10^3/uL; Basophil% 1.4 % (0-1); Eosinophil# 0.43 X10^3/uL; Eosinophils% 5.1 % (0-5); Hematocrit 37.2 % (37-47); Hemoglobin 11.6 g/dL (12.0-15.0); Lymphocyte # 1.24 X10^3/ul (4.0); Lymphocyte % 14.7 % (19-41); Mean Corp Hgb Conc 31.2 g/dL (32-36); Mean Corpuscular Hgb 25.9 pg (27.0-32.0); Mean Platelet Vol. 11.1 fl (6.2-12.0); Monocyte# 1.05 X10^3/uL; Monocyte% 12.4 % (0-10); NRBC Flagged by Analyzer 0 % (0-5); Neutrophil # 5.57 X10^3/uL (2.7-7.7); Platelet Count 276 K/mm3 (150-450); RBC Distribution Width CV 19.9 % (11.6-14.6); RBC Distribution Width SD 58.5 fl (35.1-43.9); Red Blood Count 4.48 M/mm3 (4.2-5.4); White Blood Count 8.4 K/mm3 (4.4-11.0)
[2021-02-01 06:24] LABS: Anion Gap 6 (5-15); BUN 29 mg/dL (7-18); BUN/Creat Ratio 24.6 RATIO (10-20); Calcium,Total 8.8 mg/dL (8.5-10.1); Chloride 97 mmol/L (98-107); Creatinine, Serum 1.18 mg/dL (0.55-1.02); EST Glomerular Filtration Rate 47 mL/min (>60); Est Glom Filt Rate - Afr Amer 57 mL/min (>60); Estimated Creatinine Clearance 33.38 ml/min; Glucose 185 mg/dL (74-106); Potassium 2.6 mmol/L (3.5-5.1); Sodium Level 134 mmol/L (136-145)
[2021-02-01] MEDS: Pantoprazole Sodium 20 MG Tablet PO (06:59)
[2021-02-01] MEDS: Insulin Lispro 100 UNIT/ML INSULN.PEN SC ×4 (06:59→22:53)
[2021-02-01] MEDS: Levothyroxine 75 MCG Tablet PO (06:59)
[2021-02-01] MEDS: Potassium Chloride Oral Tablet 20 MEQ 60 MEQ PO (06:59)
[2021-02-01 07:00] LABS: Bedside Glucose 179 mg/dL (70-110)
[2021-02-01] MEDS: Enoxaparin 40 MG/0.4 ML Syringe SC (07:12)
[2021-02-01] MEDS: Folic Acid 1 MG Tablet PO (08:27)
[2021-02-01] MEDS: Aspirin 81 MG TAB.CHEW PO (08:27)
[2021-02-01] MEDS: HYDROcodone Bitartrate/Apap 5/325 Tablet PO (09:35)
[2021-02-01] MEDS: Metoprolol(XL)Succ 25 MG Tablet PO (09:37)
[2021-02-01] MEDS: Allopurinol 300 MG Tablet PO (09:37)
[2021-02-01] MEDS: Fluticasone 0.05% 1 SPRAY NASAL.SRY 2 SPRAY NASAL (09:38)
[2021-02-01] MEDS: Furosemide 40 MG Tablet PO ×2 (09:38→17:52)
[2021-02-01] MEDS: guaiFENesin 600 MG Tablet PO ×2 (09:38→22:53)
[2021-02-01] MEDS: Isosorbide Mononitrate 60 MG Tablet PO ×2 (09:38→22:53)
[2021-02-01] MEDS: Montelukast 10 MG Tablet PO (09:38)
[2021-02-01] MEDS: FLUoxetine 20 MG Capsule 40 MG PO (09:38)
[2021-02-01] MEDS: Polyethylene Glycol 3350 17 GM PACKET PO (09:40)
[2021-02-01] MEDS: Lactulose 20 GM/30 ML UDC 10 GM PO (09:40)
[2021-02-01] MEDS: Methylcellulose 2 GM Bottle PO (09:40)
[2021-02-01] MEDS: Potassium Chloride 10mEq/100mL 10 MEQ/100 ML IV.SOLN. 100 MEQ IV BOLUS ×8 (09:53→23:23)
[2021-02-01 11:21] LABS: Bedside Glucose 260 mg/dL (70-110)
[2021-02-01 13:49] LABS: Hemoglobin A1c 5.9 % (3.8-5.6)
[2021-02-01] MEDS: Ceftriaxone 1 GM/50 ML BAG IV (14:11)
--- NOTE | 2021-02-01 14:54 | PN_ITS ---
Patient Problems: Active and Suspected Problems (Last Reviewed 09/19/20 @ 15:[address] Long Jovel MD) UTI (urinary tract infection) (Acute) Hypoglycemia due to type 2 diabetes mellitus (Acute) Hypokalemia (Acute) Subjective: Patient seen and examined. She remains profoundly hypokalemia this morning with potassium still being 2.6. She has no other complaints. Review of systems otherwise negative. Daughter concerned because patient has had such episodes of hyperkalemia in the past. I counseled daughter that this was likely due to patient being on metolazone and Lasix as well as lactulose. I did consult with Dr. Metolazone has been discontinued and per discussion with her tube turner, will start patient on spironolactone which was a potassium sparing diuretic. Review of stems otherwise negative. Vitals/I&O's: Vital Signs Temp Pulse Resp BP Pulse Ox 98.0 F 74 18 114/60 94 02/01/21 10:45 02/01/21 10:45 02/01/21 10:45 02/01/21 10:45 02/01/21 10:45 Oxygen Delivery Method Room Air Weight: 195 lb 12.328 oz Body Mass Index (BMI) 33.5 Intake and Output for Last 24 Hours 01/30/21 01/31/21 02/01/21 23:59 23:59 23:59 Intake Total 2643.75 / 2643.75 3180.00 / 3230.00 1730 / 1730 Output Total 1550 / 1550 3550 / 5150 2900 / 2900 Balance 1093.75 / 1093.75 -370.00 / -1920.00 -1170 / -1170 General: Alert, Oriented x3, Cooperative, No apparent distress HEENT: Atraumatic, PERRLA, EOMI, Normocephalic Oral: Dry Mucosa Neck: Supple, No JVD, Negative Carotid Bruits Lungs: Clear to auscultation, Normal air movement, No rhonchi, No wheeze, No rales Cardiovascular: Regular rate, Regular Rhythm, Normal S1, Normal S2, No murmurs Abdomen: Bowel Sounds Present, Soft, Non Tender, Non-Distended, No Hepato-s plenomegaly Extremities: No clubbing, No cyanosis, No edema, Capillary Refill Less than 3 Seconds Skin: No rashes, No breakdown, - - has extensive ecchymotic patches on UEs, due to mechanical fall Musculoskeletal: No Tenderness to Palpation of Joints or Extremities Lymphatic: No Cervical, Supraclavicular, or Inguinal Adenopathy Neurological: Cranial nerves II-XII grossly intact, Neuro grossly intact, Motor Exam 5/5 strength throughout Psych/Mental Status: Normal Affect, Appropriate, Alert and oriented to time, place, person, mood and affect Microbiology Past 72 Hours 01/30/21 06:12 Blood Culture (Wb) - Right Hand Blood Culture - Preliminary No growth in 48 hours. 01/30/21 06:15 Blood Culture (Wb) - Anticubital Left Blood Culture - Preliminary No growth in 48 hours. 01/30/21 05:30 Urine, Clean Catch Urine Culture - Preliminary Presumptive E. coli Laboratory Results 01/31/21 16:18: POC Glucose 205 H 01/31/21 16:31: Sodium 132 L, Potassium 3.5, Chloride 98, Carbon Dioxide 28.0, Anion Gap 6, BUN 30 H, Creatinine 1.26 H, Estim Creat Clear Calc 31.26, Est GFR (MDRD) Af Amer 53 L, Est GFR (MDRD) Non-Af 43 L, BUN/Creatinine Ratio 23.8 H, Glucose 210 H, Calcium 8.5 01/31/21 22:05: POC Glucose 216 H 02/01/21 05:10: WBC 8.4, RBC 4.48, Hgb 11.6 L, Hct 37.2, MCV 83.0, MCH 25.9 L, MCHC 31.2 L, RDW Std Deviation 58.5 H, RDW Coeff of Oscar 19.9 H, Plt Count 276, MPV 11.1, Immature Gran % (Auto) 0.400, Neut % (Auto) 66.0, Lymph % (Auto) 14.7 L, [place] % (Auto) 12.4 H, Eos % (Auto) 5.1 H, Baso % (Auto) 1.4 H, Absolute Neuts (auto) 5.6, Absolute Lymphs (auto) 1.24, Nucleated RBC % 0 02/01/21 05:10: Sodium 134 L, Potassium 2.6 L*, Chloride 97 L, Carbon Dioxide 31.0, Anion Gap 6, BUN 29 H, Creatinine 1.18 H, Estim Creat Clear Calc 33.38, Est GFR (MDRD) Af Amer 57 L, Est GFR (MDRD) Non-Af 47 L, BUN/Creatinine Ratio 24.6 H, Glucose 185 H, Calcium 8.8 02/01/21 05:10: Hemoglobin A1c 5.9 H 02/01/21 06:55: POC Glucose 179 H 02/01/21 11:14: POC Glucose 260 H Current Medications Hydrocodone Bitart/Acetaminophen (Hydrocodone Bitartrate/Apap 5/325 Tablet) 1 tablet PO Q6H PRN PRN PRN Reason: Pain Score 1-10 Last Admin: 02/01/21 09:35 Dose: 1 tablet Documented by: Allopurinol (Allopurinol 300 Mg Tablet) 300 mg PO DAILY [facility] Last Admin: 02/01/21 09:37 Dose: 300 mg Documented by: Aspirin (Aspirin 81 Mg Tab.Chew) 81 mg PO DAILY@0800 [facility] Last Admin: 02/01/21 08:27 Dose: 81 mg Documented by: Atorvastatin Calcium (Atorvastatin Calcium 10 Mg Tablet) 10 mg PO QHS [facility] Last Admin: 01/31/21 22:14 Dose: 10 mg Documented by: Dextrose (Dextrose 50%-Water 25 Gm/50 Ml Disp.Syrin) 0 gm IV X1 PRN; Protocol PRN Reason: Hypoglycemia Docusate Sodium (Docusate Sodium 100 Mg Capsule) 100 mg PO DAILY PRN PRN PRN Reason: Constipation Enoxaparin Sodium (Enoxaparin 40 Mg/0.4 Ml Syringe) 40 mg SC DAILY@0600 [facility] Last Admin: 02/01/21 07:12 Dose: 40 mg Documented by: Estrogens Conjugated (Estrogens,Conj. 1 Tube) 1 dose VAGINAL MoWeFr [facility] Last Admin: 01/31/21 09:18 Dose: 1 dose Documented by: Fluoxetine HCl (Fluoxetine 20 Mg Capsule) 40 mg PO DAILY [facility] Last Admin: 02/01/21 09:38 Dose: 40 mg Documented by: Fluticasone Propionate (Fluticasone 0.05% 1 [place] Nasal.Sry) 2 spray NASAL DAILY [facility] Last Admin: 02/01/21 09:38 Dose: 2 spray Documented by: Folic Acid (Folic Acid 1 Mg Tablet) 1 mg PO DAILY@0800 [facility] Last Admin: 02/01/21 08:27 Dose: 1 mg Documented by: Furosemide (Furosemide 40 Mg Tablet) 40 mg PO BIDLX [facility] Last Admin: 02/01/21 09:38 Dose: 40 mg Documented by: Glucagon (Glucagon 1 Mg/Ml Syringe) 1 mg IM .X1 PRN PRN Reason: Hypoglycemia Guaifenesin (Guaifenesin 600 Mg Tablet) 600 mg PO BID [facility] Last Admin: 02/01/21 09:38 Dose: 600 mg Documented by: Sodium Chloride () 250 mls @ 15 mls/hr IV .[id number] PRN PRN Reason: Additional IVPB Infusion Ceftriaxone Sodium (Rocephin) 1 gm in 50 mls @ 100 mls/hr IV Q24 [facility] Last Infusion: 02/01/21 14:41 Dose: Infused Documented by: Insulin Human Lispro (Insulin Lispro 100 Unit/Ml Insuln.Pen) 0 unit SC ACHS [facility]; Protocol Last Admin: 02/01/21 11:22 Dose: 2 u Documented by: Isosorbide Mononitrate (Isosorbide Mononitrate 60 Mg Tablet) 60 mg PO BID [facility] Last Admin: 02/01/21 09:38 Dose: 60 mg Documented by: Lactulose (Lactulose 20 Gm/30 Ml Udc) 10 gm PO BID [facility] Last Admin: 02/01/21 09:40 Dose: 10 gm Documented by: Levothyroxine Sodium (Levothyroxine 75 Mcg Tablet) 75 mcg PO DAILY@0600 [facility] Last Admin: 02/01/21 06:59 Dose: 75 mcg Documented by: Methylcellulose (Methylcellulose 2 Gm Bottle) 2 gm PO DAILY [facility] Last Admin: 02/01/21 09:40 Dose: 2 gm Documented by: Metolazone (Metolazone 2.5 Mg Tablet) 2.5 mg PO MoWeFr@1000 [facility] Last Admin: 01/31/21 09:18 Dose: 2.5 mg Documented by: Metoprolol Succinate (Metoprolol(Xl)Succ 25 Mg Tablet) 25 mg PO DAILY [facility] Last Admin: 02/01/21 09:37 Dose: 25 mg Documented by: Montelukast Sodium (Montelukast 10 Mg Tablet) 10 mg PO DAILY [facility] Last Admin: 02/01/21 09:38 Dose: 10 mg Documented by: Pantoprazole Sodium (Pantoprazole Sodium 20 Mg Tablet) 20 mg PO DAILY@0600 [facility] Last Admin: 02/01/21 06:59 Dose: 20 mg Documented by: Polyethylene Glycol (Polyethylene Glycol 3350 17 Gm Packet) 17 gm PO DAILY [facility] Last Admin: 02/01/21 09:40 Dose: 17 gm Documented by: Sodium Chloride (0.9% Saline Lock 10 Ml Syringe) 10 - 40 ml IV UD PRN PRN Reason: SALINE FLUSH Spironolactone (Spironolactone 25 Mg Tablet) 25 mg PO DAILY [facility] Medical Necessity - Tobacco Use Smoking Status: Former smoker Tobacco Use: Non-smoker Assessment/Plan All Active Problems (Last Reviewed 09/19/20 @ 15:[address] 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 * PT/OT on board * fall precautions * #Hypokalemia: K is still low at 2.6 today. Will replac and trend. Metolazone discontinued. #Type 2 diabetes mellitus * diabetes meds on hold due to hypoglycemia * ISS. Accuchecks ACHS * will check A1C. * #Hypertension: on metoprolol #Hyperlipidemia: on statin #Chronic HFpEf; on lasix. Doesnt look fluid overloaded. Metolazone discontinued. Patient started on spironolactone. #Hypothyroidism: on synthroid DVT prophylaxis: lovenox Inpatient E&M: 72687 Subs Hosp L2
--- NOTE | 2021-02-01 14:55 | CASEMGMT ---
Addendum entered by Kingsley Bustamante 02/01/21 15:39: Pt made aware [facility] able to accept and SOC will be either Mon or Tues. She is agreeable to this and voices appreciation. Original Note: [facility] NOTE: PT/OT informed this [facility] is [facility]. REGGIE QUEVEDO to room to talk with pt. She states she [facility] had [facility] in the past and would like to have them again. Call placed to [facility] and VM left re: referral. Awaiting acceptance. Rupal SOLARES RN, CM
[2021-02-01 15:48] LABS: Potassium 3.3 mmol/L (3.5-5.1)
[2021-02-01 17:20] LABS: Bedside Glucose 204 mg/dL (70-110)
[2021-02-01] MEDS: 0.9% Saline Lock 10 ML Syringe IV ×2 (20:01→23:23)
[2021-02-01] MEDS: Atorvastatin Calcium 10 MG Tablet PO (22:53)
[2021-02-01 23:01] LABS: Bedside Glucose 222 mg/dL (70-110)
[2021-02-02] VITALS (13 sets, daily range): BP systolic 106–124; BP diastolic 53–65; PULSE 63–90; RESP 15–18; TEMP 36.3–36.9; O2SAT 94–95
[2021-02-02] MEDS: Pantoprazole Sodium 20 MG Tablet PO (06:29)
[2021-02-02] MEDS: Levothyroxine 75 MCG Tablet PO (06:29)
[2021-02-02] MEDS: Enoxaparin 40 MG/0.4 ML Syringe SC (06:30)
[2021-02-02] MEDS: Insulin Lispro 100 UNIT/ML INSULN.PEN SC ×4 (06:30→22:01)
--- NOTE | 2021-02-02 06:39 | CASEMGMT ---
RN EMY NOTE: [facility] Palliative screening tool completed. Pt does not meet criteria for Palliative referral at this time. Rupal SOLARES RN CM
[2021-02-02 06:46] LABS: Bedside Glucose 199 mg/dL (70-110)
[2021-02-02] MEDS: Folic Acid 1 MG Tablet PO (09:23)
[2021-02-02] MEDS: FLUoxetine 20 MG Capsule 40 MG PO (09:23)
[2021-02-02] MEDS: Aspirin 81 MG TAB.CHEW PO (09:23)
[2021-02-02] MEDS: Spironolactone 25 MG Tablet PO (09:24)
[2021-02-02 09:25] LABS: Anion Gap 6 (5-15); BUN 28 mg/dL (7-18); BUN/Creat Ratio 23.3 RATIO (10-20); Calcium,Total 9.1 mg/dL (8.5-10.1); Chloride 96 mmol/L (98-107); EST Glomerular Filtration Rate 46 mL/min (>60); Est Glom Filt Rate - Afr Amer 56 mL/min (>60); Estimated Creatinine Clearance 32.83 ml/min; Glucose 186 mg/dL (74-106); Potassium 2.7 mmol/L (3.5-5.1); Sodium Level 133 mmol/L (136-145)
[2021-02-02] MEDS: Isosorbide Mononitrate 60 MG Tablet PO ×2 (09:27→22:01)
[2021-02-02] MEDS: guaiFENesin 600 MG Tablet PO ×2 (09:28→22:01)
[2021-02-02] MEDS: Furosemide 40 MG Tablet PO ×2 (09:28→16:41)
[2021-02-02] MEDS: Metoprolol(XL)Succ 25 MG Tablet PO (09:29)
[2021-02-02] MEDS: Montelukast 10 MG Tablet PO (09:29)
[2021-02-02] MEDS: Allopurinol 300 MG Tablet PO (09:29)
[2021-02-02] MEDS: Estrogens,Conj. 1 Tube 1 DOSE VAGINAL (09:30)
[2021-02-02] MEDS: Fluticasone 0.05% 1 SPRAY NASAL.SRY 2 SPRAY NASAL (09:31)
[2021-02-02] MEDS: Ceftriaxone 1 GM/50 ML BAG IV (09:38)
[2021-02-02] MEDS: HYDROcodone Bitartrate/Apap 5/325 Tablet PO (10:25)
[2021-02-02] MEDS: Potassium Chloride 10mEq/100mL 10 MEQ/100 ML IV.SOLN. 100 MEQ IV BOLUS ×4 (10:26→14:48)
--- NOTE | 2021-02-02 10:36 | CASEMGMT ---
Addendum entered by Elizabeth Perez 02/02/21 14:48: Green sheet placed on chart in anticipation of weekend discharge. MOSES Freeman Addendum entered by Elizabeth Perez 02/02/21 10:42: EMMY let Georgie in [facility] know pt will not be going home from here, but to TCU. MOSES Freeman Original Note: As per staff, pt is needing a max assist of one to get up. SW spoke w/pt and daughter Surinder in room in regard to discharge plan. After some discussion, pt agreeable to TCU for a short stay. List of SNF providers including quality and resource use date, and consistent with pt's preferred geographic region, medical needs and insurance network provided, and TCU is their only choice. SW called TCU, confirmed the 3 day Medicare stay is still waived, they can take pt whenever she is ready. SW let pt and daughter know, also explained coverage for SNF by Medicare. Both state understanding. Plan: TCU when pt is medically ready. MOSES Freeman
[2021-02-02 11:26] LABS: Bedside Glucose 237 mg/dL (70-110)
[2021-02-02] MEDS: Potassium Chloride Oral Tablet 20 MEQ 40 MEQ PO ×2 (11:38→16:41)
[2021-02-02] MEDS: Lactulose 20 GM/30 ML UDC 10 GM PO ×2 (13:24→22:02)
--- NOTE | 2021-02-02 15:39 | PCM.PN.HOSP ---
Patient Problems: Active and Suspected Problems (Last Reviewed 09/19/20 @ 15:[address] Long Jovel MD) UTI (urinary tract infection) (Acute) Hypoglycemia due to type 2 diabetes mellitus (Acute) Hypokalemia (Acute) Subjective: Patient seen and examined. She had no complaints. Review of systems otherwise negative. Potassium remains low today at 2.7. In light of refractory hypokalemia, will consult nephrology. Vitals/I&O's: Vital Signs Temp Pulse Resp BP Pulse Ox 98.1 F 63 18 106/53 L 95 02/02/21 15:15 02/02/21 15:15 02/02/21 15:15 02/02/21 15:15 02/02/21 15:15 Oxygen Delivery Method Room Air Weight: 195 lb 12.328 oz Body Mass Index (BMI) 33.5 Intake and Output for Last 24 Hours 01/31/21 02/01/21 02/02/21 23:59 23:59 23:59 Intake Total 3180.00 / 3230.00 3030 / 3030 510 / 510 Output Total 3550 / 5150 4000 / 4000 800 / 800 Balance -370.00 / -1920.00 -970 / -970 -290 / -290 General: Alert, Oriented x3, Cooperative, No apparent distress HEENT: Atraumatic, PERRLA, EOMI, Normocephalic Oral: Dry Mucosa Neck: Supple, No JVD, Negative Carotid Bruits Lungs: Clear to auscultation, Normal air movement, No rhonchi, No wheeze, No rales Cardiovascular: Regular rate, Regular Rhythm, Normal S1, Normal S2, No murmurs Abdomen: Bowel Sounds Present, Soft, Non Tender, Non-Distended, No Hepato-splenomegaly Extremities: No clubbing, No cyanosis, No edema, Capillary Refill Less than 3 Seconds Skin: No rashes, No breakdown, - - ecchymotic patches on upper extremities resolving Musculoskeletal: No Tenderness to Palpation of Joints or Extremities Lymphatic: No Cervical, Supraclavicular, or Inguinal Adenopathy Neurological: Cranial nerves II-XII grossly intact, Neuro grossly intact, Motor Exam 5/5 strength throughout Psych/Mental Status: Normal Affect, Appropriate, Alert and oriented to time, place, person, mood and affect Microbiology Past 72 Hours 02/02/21 13:20 Mucosa - Nasopharyngeal SARS-CoV-2 Antigen (Rapid) - Final 01/30/21 05:30 Urine, Clean Catch Urine Culture - Final Presumptive E. coli 01/30/21 06:12 Blood Culture (Wb) - Right Hand Blood Culture - Preliminary No growth in 48 hours. 01/30/21 06:15 Blood Culture (Wb) - Anticubital Left Blood Culture - Preliminary No growth in 48 hours. Laboratory Results 02/01/21 15:30: Potassium 3.3 L 02/01/21 17:08: POC Glucose 204 H 02/01/21 22:49: POC Glucose 222 H 02/02/21 06:28: POC Glucose 199 H 02/02/21 08:35: Sodium 133 L, Potassium 2.7 L*, Chloride 96 L, Carbon Dioxide 31.0, Anion Gap 6, BUN 28 H, Creatinine 1.20 H, Estim Creat Clear Calc 32.83, Est GFR (MDRD) Af Amer 56 L, Est GFR (MDRD) Non-Af 46 L, BUN/Creatinine Ratio 23.3 H, Glucose 186 H, Calcium 9.1 02/02/21 11:13: POC Glucose 237 H Current Medications Hydrocodone Bitart/Acetaminophen (Hydrocodone Bitartrate/Apap 5/325 Tablet) 1 tablet PO Q6H PRN PRN PRN Reason: Pain Score 1-10 Last Admin: 02/02/21 10:25 Dose: 1 tablet Documented by: Allopurinol (Allopurinol 300 Mg Tablet) 300 mg PO DAILY [facility] Last Admin: 02/02/21 09:29 Dose: 300 mg Documented by: Aspirin (Aspirin 81 Mg Tab.Chew) 81 mg PO DAILY@0800 [facility] Last Admin: 02/02/21 09:23 Dose: 81 mg Documented by: Atorvastatin Calcium (Atorvastatin Calcium 10 Mg Tablet) 10 mg PO QHS [facility] Last Admin: 02/01/21 22:53 Dose: 10 mg Documented by: Dextrose (Dextrose 50%-Water 25 Gm/50 Ml Disp.Syrin) 0 gm IV X1 PRN; Protocol PRN Reason: Hypoglycemia Docusate Sodium (Docusate Sodium 100 Mg Capsule) 100 mg PO DAILY PRN PRN PRN Reason: Constipation Enoxaparin Sodium (Enoxaparin 40 Mg/0.4 Ml Syringe) 40 mg SC DAILY@0600 [facility] Last Admin: 02/02/21 06:30 Dose: 40 mg Documented by: Estrogens Conjugated (Estrogens,Conj. 1 Tube) 1 dose VAGINAL MoWeFr [facility] Last Admin: 02/02/21 09:30 Dose: 1 dose Documented by: Fluoxetine HCl (Fluoxetine 20 Mg Capsule) 40 mg PO DAILY [facility] Last Admin: 02/02/21 09:23 Dose: 40 mg Documented by: Fluticasone Propionate (Fluticasone 0.05% 1 [place] Nasal.Sry) 2 spray NASAL DAILY [facility] Last Admin: 02/02/21 09:31 Dose: 2 spray Documented by: Folic Acid (Folic Acid 1 Mg Tablet) 1 mg PO DAILY@0800 [facility] Last Admin: 02/02/21 09:23 Dose: 1 mg Documented by: Furosemide (Furosemide 40 Mg Tablet) 40 mg PO BIDLX [facility] Last Admin: 02/02/21 09:28 Dose: 40 mg Documented by: Glucagon (Glucagon 1 Mg/Ml Syringe) 1 mg IM .X1 PRN PRN Reason: Hypoglycemia Guaifenesin (Guaifenesin 600 Mg Tablet) 600 mg PO BID [facility] Last Admin: 02/02/21 09:28 Dose: 600 mg Documented by: Sodium Chloride () 250 mls @ 15 mls/hr IV .[id number] PRN PRN Reason: Additional IVPB Infusion Meropenem 500 mg/ Sodium (Chloride) 60 mls @ 100 mls/hr IV Q12 [facility] Last Infusion: 02/02/21 12:25 Dose: Infused Documented by: Insulin Human Lispro (Insulin Lispro 100 Unit/Ml Insuln.Pen) 0 unit SC [facility]; Protocol Last Admin: 02/02/21 11:17 Dose: 2 u Documented by: Isosorbide Mononitrate (Isosorbide Mononitrate 60 Mg Tablet) 60 mg PO BID [facility] Last Admin: 02/02/21 09:27 Dose: 60 mg Documented by: Lactulose (Lactulose 20 Gm/30 Ml Udc) 10 gm PO BID [facility] Last Admin: 02/02/21 13:24 Dose: 10 gm Documented by: Levothyroxine Sodium (Levothyroxine 75 Mcg Tablet) 75 mcg PO DAILY@0600 [facility] Last Admin: 02/02/21 06:29 Dose: 75 mcg Documented by: Methylcellulose (Methylcellulose 2 Gm Bottle) 2 gm PO DAILY [facility] Last Admin: 02/02/21 09:26 Dose: Not Given Documented by: Metolazone (Metolazone 2.5 Mg Tablet) 2.5 mg PO MoWeFr@1000 [facility] Last Admin: 01/31/21 09:18 Dose: 2.5 mg Documented by: Metoprolol Succinate (Metoprolol(Xl)Succ 25 Mg Tablet) 25 mg PO DAILY [facility] Last Admin: 02/02/21 09:29 Dose: 25 mg Documented by: Montelukast Sodium (Montelukast 10 Mg Tablet) 10 mg PO DAILY [facility] Last Admin: 02/02/21 09:29 Dose: 10 mg Documented by: Pantoprazole Sodium (Pantoprazole Sodium 20 Mg Tablet) 20 mg PO DAILY@0600 [facility] Last Admin: 02/02/21 06:29 Dose: 20 mg Documented by: Polyethylene Glycol (Polyethylene Glycol 3350 17 Gm Packet) 17 gm PO DAILY [facility] Last Admin: 02/02/21 09:28 Dose: Not Given Documented by: Potassium Chloride (Potassium Chloride Oral Tablet 20 Meq) 40 meq PO TIDCM [facility] Last Admin: 02/02/21 11:38 Dose: 40 meq Documented by: Sodium Chloride (0.9% Saline Lock 10 Ml Syringe) 10 - 40 ml IV UD PRN PRN Reason: SALINE FLUSH Last Admin: 02/01/21 23:23 Dose: 10 ml Documented by: Spironolactone (Spironolactone 25 Mg Tablet) 25 mg PO DAILY [facility] Last Admin: 02/02/21 09:24 Dose: 25 mg Documented by: STROKE Vital Signs/Narrative: Vital Signs Temp Pulse Resp BP Pulse Ox 02/02/21 15:15 98.1 F 63 18 106/53 L 95 02/02/21 13:02 89 Medical Necessity - Tobacco Use Smoking Status: Former smoker Tobacco Use: Non-smoker Assessment/Plan All Active Problems (Last Reviewed 09/19/20 @ 15:[address] Long Jovel MD) UTI (urinary tract infection) (Acute) Hypoglycemia due to type 2 diabetes mellitus (Acute) Hypokalemia (Acute) H/O coronary artery bypass surgery (Resolved 01/08/05) History of coronary artery stent placement (Resolved 08/02/15) History of ST elevation myocardial infarction (STEMI) (Resolved 04/2013) Bacteremia (Resolved) Chronic systolic (congestive) heart failure (Resolved) Hypokalemia (Resolved) Secondary pulmonary arterial hypertension (Resolved) Shortness of breath (Resolved) Urinary tract infection (Resolved) #Syncope due to hypoglycemia resolved. PT/OT on board fall precautions #Hypokalemia: K is still low at 2.7 today. Will consult nephrology as potassium has been refractory to treatment over the last few days. Will give IV potassium 40 mEq. #Type 2 diabetes mellitus diabetes meds on hold due to hypoglycemia ISS. Accuchecks ACHS will check A1C. #UTI: urine cultured ESBL E Coli. Patient now on meropenem. Blood cultures are negative #Hypertension: on metoprolol #Hyperlipidemia: on statin #Chronic HFpEf; on lasix. Doesnt look fluid overloaded. Metolazone discontinued. Patient now on spironolactone. #Hypothyroidism: on synthroid DVT prophylaxis: lovenox Inpatient E&M: 11304 Subs Hosp L2
[2021-02-02 17:20] LABS: Bedside Glucose 212 mg/dL (70-110)
[2021-02-02] MEDS: Atorvastatin Calcium 10 MG Tablet PO (22:01)
[2021-02-02 22:15] LABS: Bedside Glucose 241 mg/dL (70-110)
[2021-02-03] VITALS (7 sets, daily range): BP systolic 115–126; BP diastolic 43–52; PULSE 83–87; RESP 15–18; TEMP 36.3–36.6; O2SAT 93–95
[2021-02-03] MEDS: Levothyroxine 75 MCG Tablet PO (05:58)
[2021-02-03] MEDS: Pantoprazole Sodium 20 MG Tablet PO (05:58)
[2021-02-03] MEDS: Enoxaparin 40 MG/0.4 ML Syringe SC (05:58)
[2021-02-03 07:05] LABS: Bedside Glucose 224 mg/dL (70-110)
[2021-02-03] MEDS: Insulin Lispro 100 UNIT/ML INSULN.PEN SC ×4 (07:08→21:39)
[2021-02-03] MEDS: Aspirin 81 MG TAB.CHEW PO (07:54)
[2021-02-03] MEDS: Potassium Chloride Oral Tablet 20 MEQ 40 MEQ PO ×3 (07:55→16:01)
[2021-02-03] MEDS: Folic Acid 1 MG Tablet PO (07:55)
[2021-02-03] MEDS: Lactulose 20 GM/30 ML UDC 10 GM PO ×2 (07:56→21:38)
[2021-02-03] MEDS: Spironolactone 25 MG Tablet PO (07:56)
[2021-02-03] MEDS: Fluticasone 0.05% 1 SPRAY NASAL.SRY 2 SPRAY NASAL (07:57)
[2021-02-03] MEDS: Furosemide 40 MG Tablet PO (07:59)
[2021-02-03] MEDS: Polyethylene Glycol 3350 17 GM PACKET PO (07:59)
[2021-02-03] MEDS: Isosorbide Mononitrate 60 MG Tablet PO ×2 (07:59→21:39)
[2021-02-03] MEDS: Montelukast 10 MG Tablet PO (08:00)
[2021-02-03] MEDS: FLUoxetine 20 MG Capsule 40 MG PO (08:00)
[2021-02-03] MEDS: guaiFENesin 600 MG Tablet PO ×2 (08:00→21:39)
[2021-02-03] MEDS: Metoprolol(XL)Succ 25 MG Tablet PO (08:00)
[2021-02-03] MEDS: Allopurinol 300 MG Tablet PO (08:03)
[2021-02-03 08:25] LABS: Anion Gap 8 (5-15); BUN 29 mg/dL (7-18); BUN/Creat Ratio 23.8 RATIO (10-20); Chloride 97 mmol/L (98-107); Creatinine, Serum 1.22 mg/dL (0.55-1.02); EST Glomerular Filtration Rate 45 mL/min (>60); Est Glom Filt Rate - Afr Amer 55 mL/min (>60); Estimated Creatinine Clearance 32.29 ml/min; Glucose 224 mg/dL (74-106); Potassium 2.6 mmol/L (3.5-5.1); Sodium Level 132 mmol/L (136-145)
[2021-02-03] MEDS: Potassium Chloride 10mEq/100mL 10 MEQ/100 ML IV.SOLN. 100 MEQ IV BOLUS ×4 (09:29→13:27)
[2021-02-03 11:31] LABS: Bedside Glucose 228 mg/dL (70-110)
--- NOTE | 2021-02-03 12:31 | PCM.CONS.R ---
Consultation - Renal PCP/ Referring MD: Requesting physician: [] Primary care physician: Dr. Rommel Arango MD - History of Present Illness History of Present Illness: The patient is a 80 year old F PMH of CHF , DM, HTN, HPLD. Patient was brought in for passing out. K was found to be low at 2.6 mg/dl Patient has been o lasix and metolazone at home K remains low despite replacement so renal team is consulted for hypokalemia management ROS: 12 systems review is negative except right arm pain [] - Allergies Allergies: Allergies Iodinated Contrast Media [CONTRASTS] Adverse Reaction (Verified 01/30/21 03:51) Hives - Current Medications Current Medications: Current Medications Hydrocodone Bitart/Acetaminophen (Hydrocodone Bitartrate/Apap 5/325 Tablet) 1 tablet PO Q6H PRN PRN PRN Reason: Pain Score 1-10 Last Admin: 02/02/21 10:25 Dose: 1 tablet Documented by: Allopurinol (Allopurinol 300 Mg Tablet) 300 mg PO DAILY [facility] Last Admin: 02/03/21 08:03 Dose: 300 mg Documented by: Aspirin (Aspirin 81 Mg Tab.Chew) 81 mg PO DAILY@0800 [facility] Last Admin: 02/03/21 07:54 Dose: 81 mg Documented by: Atorvastatin Calcium (Atorvastatin Calcium 10 Mg Tablet) 10 mg PO QHS [facility] Last Admin: 02/02/21 22:01 Dose: 10 mg Documented by: Dextrose (Dextrose 50%-Water 25 Gm/50 Ml Disp.Syrin) 0 gm IV X1 PRN; Protocol PRN Reason: Hypoglycemia Docusate Sodium (Docusate Sodium 100 Mg Capsule) 100 mg PO DAILY PRN PRN PRN Reason: Constipation Enoxaparin Sodium (Enoxaparin 40 Mg/0.4 Ml Syringe) 40 mg SC DAILY@0600 [facility] Last Admin: 02/03/21 05:58 Dose: 40 mg Documented by: Estrogens Conjugated (Estrogens,Conj. 1 Tube) 1 dose VAGINAL MoWeFr [facility] Last Admin: 02/02/21 09:30 Dose: 1 dose Documented by: Fluoxetine HCl (Fluoxetine 20 Mg Capsule) 40 mg PO DAILY [facility] Last Admin: 02/03/21 08:00 Dose: 40 mg Documented by: Fluticasone Propionate (Fluticasone 0.05% 1 [place] Nasal.Sry) 2 spray NASAL DAILY [facility] Last Admin: 02/03/21 07:57 Dose: 2 spray Documented by: Folic Acid (Folic Acid 1 Mg Tablet) 1 mg PO DAILY@0800 [facility] Last Admin: 02/03/21 07:55 Dose: 1 mg Documented by: Furosemide (Furosemide 40 Mg Tablet) 40 mg PO BIDLX [facility] Last Admin: 02/03/21 07:59 Dose: 40 mg Documented by: Glucagon (Glucagon 1 Mg/Ml Syringe) 1 mg IM .X1 PRN PRN Reason: Hypoglycemia Guaifenesin (Guaifenesin 600 Mg Tablet) 600 mg PO BID [facility] Last Admin: 02/03/21 08:00 Dose: 600 mg Documented by: Sodium Chloride () 250 mls @ 15 mls/hr IV .[id number] PRN PRN Reason: Additional IVPB Infusion Meropenem 500 mg/ Sodium (Chloride) 60 mls @ 100 mls/hr IV Q12 [facility] Last Infusion: 02/03/21 10:32 Dose: Infused Documented by: Potassium Chloride () 10 meq in 100 mls @ 100 mls/hr IV BOLUS Q1H [facility] Stop: 02/03/21 12:59 Last Admin: 02/03/21 10:59 Dose: 100 mls/hr Documented by: Insulin Human Lispro (Insulin Lispro 100 Unit/Ml Insuln.Pen) 0 unit SC [facility]; Protocol Last Admin: 02/03/21 11:17 Dose: 2 u Documented by: Isosorbide Mononitrate (Isosorbide Mononitrate 60 Mg Tablet) 60 mg PO BID [facility] Last Admin: 02/03/21 07:59 Dose: 60 mg Documented by: Lactulose (Lactulose 20 Gm/30 Ml Udc) 10 gm PO BID [facility] Last Admin: 02/03/21 07:56 Dose: 10 gm Documented by: Levothyroxine Sodium (Levothyroxine 75 Mcg Tablet) 75 mcg PO DAILY@0600 [facility] Last Admin: 02/03/21 05:58 Dose: 75 mcg Documented by: Methylcellulose (Methylcellulose 2 Gm Bottle) 2 gm PO DAILY [facility] Last Admin: 02/03/21 07:57 Dose: Not Given Documented by: Metolazone (Metolazone 2.5 Mg Tablet) 2.5 mg PO MoWeFr@1000 [facility] Last Admin: 01/31/21 09:18 Dose: 2.5 mg Documented by: Metoprolol Succinate (Metoprolol(Xl)Succ 25 Mg Tablet) 25 mg PO DAILY [facility] Last Admin: 02/03/21 08:00 Dose: 25 mg Documented by: Montelukast Sodium (Montelukast 10 Mg Tablet) 10 mg PO DAILY [facility] Last Admin: 02/03/21 08:00 Dose: 10 mg Documented by: Pantoprazole Sodium (Pantoprazole Sodium 20 Mg Tablet) 20 mg PO DAILY@0600 [facility] Last Admin: 02/03/21 05:58 Dose: 20 mg Documented by: Polyethylene Glycol (Polyethylene Glycol 3350 17 Gm Packet) 17 gm PO DAILY [facility] Last Admin: 02/03/21 07:59 Dose: 17 gm Documented by: Potassium Chloride (Potassium Chloride Oral Tablet 20 Meq) 40 meq PO TIDCM [facility] Last Admin: 02/03/21 11:18 Dose: 40 meq Documented by: Sodium Chloride (0.9% Saline Lock 10 Ml Syringe) 10 - 40 ml IV UD PRN PRN Reason: SALINE FLUSH Last Admin: 02/01/21 23:23 Dose: 10 ml Documented by: Spironolactone (Spironolactone 25 Mg Tablet) 25 mg PO DAILY [facility] Last Admin: 02/03/21 07:56 Dose: 25 mg Documented by: - Past Medical History Past Medical History (Chronic Problems): Chronic Problems (Last Reviewed 09/19/20 @ 15:[address] Long Jovel MD) Insulin dependent diabetes mellitus (Chronic) Atherosclerosis of coronary artery of [place] heart without angina pectoris (Chronic) Chronic diastolic (congestive) heart failure (Chronic) Nonrheumatic aortic (valve) stenosis (Chronic) Right bundle branch block (RBBB) (Chronic) Essential hypertension (Chronic) Hyperlipemia (Chronic) - Past Surgical History Surgical History: colectomy - With colostomy and colostomy reversal, coronary bypass surgery, - - Coronary stents; 2 knee operations - Social History Smoking Status: Former smoker - Family History Maternal Family History: Family History (Last Reviewed 09/19/20 @ 15:[address] Long Jovel MD) Mother Heart disease History Items: Heart Disease, - - Her mother at 96 following complications of surgery from broken hip. Paternal Family History: Family History (Last Reviewed 09/19/20 @ 15:[address] Long Jovel MD) Mother Heart disease History Items: - - Patient do not know her paternal medical history. Patient Problems: Active and Suspected Problems (Last Reviewed 09/19/20 @ 15:[address] Long Jovel MD) UTI (urinary tract infection) (Acute) Hypoglycemia due to type 2 diabetes mellitus (Acute) Hypokalemia (Acute) - Physical Exam Vitals/I&O's: Vital Signs Temp Pulse Resp BP Pulse Ox 97.3 F L 87 15 122/52 H 94 02/03/21 04:05 02/03/21 08:43 02/03/21 04:05 02/03/21 08:00 02/03/21 08:09 Oxygen Delivery Method Room Air Weight: 88.8 kg Body Mass Index (BMI) 33.5 Intake and Output for Last 24 Hours 02/01/21 02/02/21 02/03/21 23:59 23:59 23:59 Intake Total 3030 / 3030 790 / 790 665 / 665 Output Total 4000 / 4000 800 / 800 1025 / 1025 Balance -970 / -970 -10 / -10 -360 / -360 General: Alert, Oriented x3 HEENT: Atraumatic Oral: Moist Mucosa Neck: Supple, No JVD Lungs: Clear to auscultation, Normal air movement, No rhonchi Cardiovascular: Regular rate Abdomen: Bowel Sounds Present, Soft, Non Tender Extremities: No clubbing, No cyanosis, No edema Skin: No rashes Musculoskeletal: No Tenderness to Palpation of Joints or Extremities Lymphatic: No Cervical, Supraclavicular, or Inguinal Adenopathy Neurological: Cranial nerves II-XII grossly intact, Neuro grossly intact Psych/Mental Status: Appropriate Microbiology Past 72 Hours 02/02/21 13:20 Mucosa - Nasopharyngeal SARS-CoV-2 Antigen (Rapid) - Final 01/30/21 05:30 Urine, Clean Catch Urine Culture - Final Presumptive E. coli 01/30/21 06:12 Blood Culture (Wb) - Right Hand Blood Culture - Preliminary No growth in 48 hours. 01/30/21 06:15 Blood Culture (Wb) - Anticubital Left Blood Culture - Preliminary No growth in 48 hours. Laboratory Results 02/02/21 16:39: POC Glucose 212 H 02/02/21 21:57: POC Glucose 241 H 02/03/21 06:05: Sodium 132 L, Potassium 2.6 L*, Chloride 97 L, Carbon Dioxide 27.0, Anion Gap 8, BUN 29 H, Creatinine 1.22 H, Estim Creat Clear Calc 32.29, Est GFR (MDRD) Af Amer 55 L, Est GFR (MDRD) Non-Af 45 L, BUN/Creatinine Ratio 23.8 H, Glucose 224 H, Calcium 9.0 02/03/21 07:01: POC Glucose 224 H 02/03/21 11:16: POC Glucose 228 H Current Medications Hydrocodone Bitart/Acetaminophen (Hydrocodone Bitartrate/Apap 5/325 Tablet) 1 tablet PO Q6H PRN PRN PRN Reason: Pain Score 1-10 Last Admin: 02/02/21 10:25 Dose: 1 tablet Documented by: Allopurinol (Allopurinol 300 Mg Tablet) 300 mg PO DAILY [facility] Last Admin: 02/03/21 08:03 Dose: 300 mg Documented by: Aspirin (Aspirin 81 Mg Tab.Chew) 81 mg PO DAILY@0800 [facility] Last Admin: 02/03/21 07:54 Dose: 81 mg Documented by: Atorvastatin Calcium (Atorvastatin Calcium 10 Mg Tablet) 10 mg PO QHS [facility] Last Admin: 02/02/21 22:01 Dose: 10 mg Documented by: Dextrose (Dextrose 50%-Water 25 Gm/50 Ml Disp.Syrin) 0 gm IV X1 PRN; Protocol PRN Reason: Hypoglycemia Docusate Sodium (Docusate Sodium 100 Mg Capsule) 100 mg PO DAILY PRN PRN PRN Reason: Constipation Enoxaparin Sodium (Enoxaparin 40 Mg/0.4 Ml Syringe) 40 mg SC DAILY@0600 [facility] Last Admin: 02/03/21 05:58 Dose: 40 mg Documented by: Estrogens Conjugated (Estrogens,Conj. 1 Tube) 1 dose VAGINAL MoWeFr [facility] Last Admin: 02/02/21 09:30 Dose: 1 dose Documented by: Fluoxetine HCl (Fluoxetine 20 Mg Capsule) 40 mg PO DAILY [facility] Last Admin: 02/03/21 08:00 Dose: 40 mg Documented by: Fluticasone Propionate (Fluticasone 0.05% 1 [place] Nasal.Sry) 2 spray NASAL DAILY [facility] Last Admin: 02/03/21 07:57 Dose: 2 spray Documented by: Folic Acid (Folic Acid 1 Mg Tablet) 1 mg PO DAILY@0800 [facility] Last Admin: 02/03/21 07:55 Dose: 1 mg Documented by: Furosemide (Furosemide 40 Mg Tablet) 40 mg PO BIDLX [facility] Last Admin: 02/03/21 07:59 Dose: 40 mg Documented by: Glucagon (Glucagon 1 Mg/Ml Syringe) 1 mg IM .X1 PRN PRN Reason: Hypoglycemia Guaifenesin (Guaifenesin 600 Mg Tablet) 600 mg PO BID [facility] Last Admin: 02/03/21 08:00 Dose: 600 mg Documented by: Sodium Chloride () 250 mls @ 15 mls/hr IV .[id number] PRN PRN Reason: Additional IVPB Infusion Meropenem 500 mg/ Sodium (Chloride) 60 mls @ 100 mls/hr IV Q12 [facility] Last Infusion: 02/03/21 10:32 Dose: Infused Documented by: Potassium Chloride () 10 meq in 100 mls @ 100 mls/hr IV BOLUS Q1H [facility] Stop: 02/03/21 12:59 Last Admin: 02/03/21 10:59 Dose: 100 mls/hr Documented by: Insulin Human Lispro (Insulin Lispro 100 Unit/Ml Insuln.Pen) 0 unit SC [facility]; Protocol Last Admin: 02/03/21 11:17 Dose: 2 u Documented by: Isosorbide Mononitrate (Isosorbide Mononitrate 60 Mg Tablet) 60 mg PO BID [facility] Last Admin: 02/03/21 07:59 Dose: 60 mg Documented by: Lactulose (Lactulose 20 Gm/30 Ml Udc) 10 gm PO BID [facility] Last Admin: 02/03/21 07:56 Dose: 10 gm Documented by: Levothyroxine Sodium (Levothyroxine 75 Mcg Tablet) 75 mcg PO DAILY@0600 [facility] Last Admin: 02/03/21 05:58 Dose: 75 mcg Documented by: Methylcellulose (Methylcellulose 2 Gm Bottle) 2 gm PO DAILY [facility] Last Admin: 02/03/21 07:57 Dose: Not Given Documented by: Metolazone (Metolazone 2.5 Mg Tablet) 2.5 mg PO MoWeFr@1000 [facility] Last Admin: 01/31/21 09:18 Dose: 2.5 mg Documented by: Metoprolol Succinate (Metoprolol(Xl)Succ 25 Mg Tablet) 25 mg PO DAILY [facility] Last Admin: 02/03/21 08:00 Dose: 25 mg Documented by: Montelukast Sodium (Montelukast 10 Mg Tablet) 10 mg PO DAILY [facility] Last Admin: 02/03/21 08:00 Dose: 10 mg Documented by: Pantoprazole Sodium (Pantoprazole Sodium 20 Mg Tablet) 20 mg PO DAILY@0600 [facility] Last Admin: 02/03/21 05:58 Dose: 20 mg Documented by: Polyethylene Glycol (Polyethylene Glycol 3350 17 Gm Packet) 17 gm PO DAILY [facility] Last Admin: 02/03/21 07:59 Dose: 17 gm Documented by: Potassium Chloride (Potassium Chloride Oral Tablet 20 Meq) 40 meq PO TIDCM [facility] Last Admin: 02/03/21 11:18 Dose: 40 meq Documented by: Sodium Chloride (0.9% Saline Lock 10 Ml Syringe) 10 - 40 ml IV UD PRN PRN Reason: SALINE FLUSH Last Admin: 02/01/21 23:23 Dose: 10 ml Documented by: Spironolactone (Spironolactone 25 Mg Tablet) 25 mg PO DAILY [facility] Last Admin: 02/03/21 07:56 Dose: 25 mg Documented by: Assessment/Plan All Active Problems (Last Reviewed 09/19/20 @ 15:[address] Long Jovel MD) UTI (urinary tract infection) (Acute) Hypoglycemia due to type 2 diabetes mellitus (Acute) Hypokalemia (Acute) H/O coronary artery bypass surgery (Resolved 01/08/05) History of coronary artery stent placement (Resolved 08/02/15) History of ST elevation myocardial infarction (STEMI) (Resolved 04/2013) Bacteremia (Resolved) Chronic systolic (congestive) heart failure (Resolved) Hypokalemia (Resolved) Secondary pulmonary arterial hypertension (Resolved) Shortness of breath (Resolved) Urinary tract infection (Resolved) 1- hypokalemia. likely from diuretics K remains low despite replacement. There is no fluid overload. Will hold lasix and metolazone Continue oral KCl. Going to receive IV KCl 40 IV Check Mg and K later today Will continue to monitor Vandana Renteria MD
--- NOTE | 2021-02-03 14:33 | PN_ITS ---
Patient Problems: Active and Suspected Problems (Last Reviewed 09/19/20 @ 15:[address] Long Jovel MD) UTI (urinary tract infection) (Acute) Hypoglycemia due to type 2 diabetes mellitus (Acute) Hypokalemia (Acute) Subjective: Patient seen and examined. She has no complaints today. Potassium still remains low at 2.7 today. Awaiting nephrology recommendations for refractory hypokalemia. She has remained hemodynamically stable. Vitals/I&O's: Vital Signs Temp Pulse Resp BP Pulse Ox 97.3 F L 87 15 122/52 H 94 02/03/21 04:05 02/03/21 08:43 02/03/21 04:05 02/03/21 08:00 02/03/21 08:09 Oxygen Delivery Method Room Air Weight: 195 lb 12.328 oz Body Mass Index (BMI) 33.5 Intake and Output for Last 24 Hours 02/01/21 02/02/21 02/03/21 23:59 23:59 23:59 Intake Total 3030 / 3030 790 / 790 765 / 765 Output Total 4000 / 4000 800 / 800 1025 / 1025 Balance -970 / -970 -10 / -10 -260 / -260 General: Alert, Oriented x3, Cooperative, No apparent distress HEENT: Atraumatic, PERRLA, EOMI, Normocephalic Oral: Dry Mucosa Neck: Supple, No JVD, Negative Carotid Bruits Lungs: Clear to auscultation, Normal air movement, No rhonchi, No wheeze, No rales Cardiovascular: Regular rate, Regular Rhythm, Normal S1, Normal S2, No murmurs Abdomen: Bowel Sounds Present, Soft, Non Tender, Non-Distended, No Hepato- splenomegaly Extremities: No clubbing, No cyanosis, No edema, Capillary Refill Less than 3 Seconds Skin: No rashes, No breakdown, - - ecchymotic patches on upper extremities resolving Musculoskeletal: No Tenderness to Palpation of Joints or Extremities Lymphatic: No Cervical, Supraclavicular, or Inguinal Adenopathy Neurological: Cranial nerves II-XII grossly intact, Neuro grossly intact, Motor Exam 5/5 strength throughout Psych/Mental Status: Normal Affect, Appropriate, Alert and oriented to time, place, person, mood and affect Microbiology Past 72 Hours 02/02/21 13:20 Mucosa - Nasopharyngeal SARS-CoV-2 Antigen (Rapid) - Final 01/30/21 05:30 Urine, Clean Catch Urine Culture - Final Presumptive E. coli 01/30/21 06:12 Blood Culture (Wb) - Right Hand Blood Culture - Preliminary No growth in 48 hours. 01/30/21 06:15 Blood Culture (Wb) - Anticubital Left Blood Culture - Preliminary No growth in 48 hours. Laboratory Results 02/02/21 16:39: POC Glucose 212 H 02/02/21 21:57: POC Glucose 241 H 02/03/21 06:05: Sodium 132 L, Potassium 2.6 L*, Chloride 97 L, Carbon Dioxide 27.0, Anion Gap 8, BUN 29 H, Creatinine 1.22 H, Estim Creat Clear Calc 32.29, Est GFR (MDRD) Af Amer 55 L, Est GFR (MDRD) Non-Af 45 L, BUN/Creatinine Ratio 23.8 H, Glucose 224 H, Calcium 9.0 02/03/21 07:01: POC Glucose 224 H 02/03/21 11:16: POC Glucose 228 H Diagnostic Data Chest X-Ray 01/30/21 04:09 IMPRESSION: Possible mild vascular congestion. Cardiomegaly. Cannot exclude left-sided pleural effusion. Electronically Signed: Jessica Hall MD at 4:45 EDT , Service support , Brain CT 01/30/21 04:11 IMPRESSION: Involutional changes otherwise CT brain within normal limits for age. Specifically, no acute intracranial hemorrhage or space-occupying lesion. Electronically Signed: Jessica Hall MD at 4:48 EDT , Service support , Current Medications Hydrocodone Bitart/Acetaminophen (Hydrocodone Bitartrate/Apap 5/325 Tablet) 1 tablet PO Q6H PRN PRN PRN Reason: Pain Score 1-10 Last Admin: 02/02/21 10:25 Dose: 1 tablet Documented by: Allopurinol (Allopurinol 300 Mg Tablet) 300 mg PO DAILY AME Last Admin: 02/03/21 08:03 Dose: 300 mg Documented by: Aspirin (Aspirin 81 Mg Tab.Chew) 81 mg PO DAILY@0800 [facility] Last Admin: 02/03/21 07:54 Dose: 81 mg Documented by: Atorvastatin Calcium (Atorvastatin Calcium 10 Mg Tablet) 10 mg PO QHS [facility] Last Admin: 02/02/21 22:01 Dose: 10 mg Documented by: Dextrose (Dextrose 50%-Water 25 Gm/50 Ml Disp.Syrin) 0 gm IV X1 PRN; Protocol PRN Reason: Hypoglycemia Docusate Sodium (Docusate Sodium 100 Mg Capsule) 100 mg PO DAILY PRN PRN PRN Reason: Constipation Enoxaparin Sodium (Enoxaparin 40 Mg/0.4 Ml Syringe) 40 mg SC DAILY@0600 [facility] Last Admin: 02/03/21 05:58 Dose: 40 mg Documented by: Estrogens Conjugated (Estrogens,Conj. 1 Tube) 1 dose VAGINAL MoWeFr [facility] Last Admin: 02/02/21 09:30 Dose: 1 dose Documented by: Fluoxetine HCl (Fluoxetine 20 Mg Capsule) 40 mg PO DAILY [facility] Last Admin: 02/03/21 08:00 Dose: 40 mg Documented by: Fluticasone Propionate (Fluticasone 0.05% 1 [place] Nasal.Sry) 2 spray NASAL DAILY [facility] Last Admin: 02/03/21 07:57 Dose: 2 spray Documented by: Folic Acid (Folic Acid 1 Mg Tablet) 1 mg PO DAILY@0800 [facility] Last Admin: 02/03/21 07:55 Dose: 1 mg Documented by: Furosemide (Furosemide 40 Mg Tablet) 40 mg PO BIDLX [facility] Last Admin: 02/03/21 07:59 Dose: 40 mg Documented by: Glucagon (Glucagon 1 Mg/Ml Syringe) 1 mg IM .X1 PRN PRN Reason: Hypoglycemia Guaifenesin (Guaifenesin 600 Mg Tablet) 600 mg PO BID [facility] Last Admin: 02/03/21 08:00 Dose: 600 mg Documented by: Sodium Chloride () 250 mls @ 15 mls/hr IV .[id number] PRN PRN Reason: Additional IVPB Infusion Meropenem 500 mg/ Sodium (Chloride) 60 mls @ 100 mls/hr IV Q12 [facility] Last Infusion: 02/03/21 10:32 Dose: Infused Documented by: Insulin Human Lispro (Insulin Lispro 100 Unit/Ml Insuln.Pen) 0 unit SC ACHS [facility]; Protocol Last Admin: 02/03/21 11:17 Dose: 2 u Documented by: Isosorbide Mononitrate (Isosorbide Mononitrate 60 Mg Tablet) 60 mg PO BID [facility] Last Admin: 02/03/21 07:59 Dose: 60 mg Documented by: Lactulose (Lactulose 20 Gm/30 Ml Udc) 10 gm PO BID [facility] Last Admin: 02/03/21 07:56 Dose: 10 gm Documented by: Levothyroxine Sodium (Levothyroxine 75 Mcg Tablet) 75 mcg PO DAILY@0600 [facility] Last Admin: 02/03/21 05:58 Dose: 75 mcg Documented by: Methylcellulose (Methylcellulose 2 Gm Bottle) 2 gm PO DAILY [facility] Last Admin: 02/03/21 07:57 Dose: Not Given Documented by: Metolazone (Metolazone 2.5 Mg Tablet) 2.5 mg PO MoWeFr@1000 [facility] Last Admin: 01/31/21 09:18 Dose: 2.5 mg Documented by: Metoprolol Succinate (Metoprolol(Xl)Succ 25 Mg Tablet) 25 mg PO DAILY [facility] Last Admin: 02/03/21 08:00 Dose: 25 mg Documented by: Montelukast Sodium (Montelukast 10 Mg Tablet) 10 mg PO DAILY [facility] Last Admin: 02/03/21 08:00 Dose: 10 mg Documented by: Pantoprazole Sodium (Pantoprazole Sodium 20 Mg Tablet) 20 mg PO DAILY@0600 [facility] Last Admin: 02/03/21 05:58 Dose: 20 mg Documented by: Polyethylene Glycol (Polyethylene Glycol 3350 17 Gm Packet) 17 gm PO DAILY [facility] Last Admin: 02/03/21 07:59 Dose: 17 gm Documented by: Potassium Chloride (Potassium Chloride Oral Tablet 20 Meq) 40 meq PO TIDCM [facility] Last Admin: 02/03/21 11:18 Dose: 40 meq Documented by: Sodium Chloride (0.9% Saline Lock 10 Ml Syringe) 10 - 40 ml IV UD PRN PRN Reason: SALINE FLUSH Last Admin: 02/01/21 23:23 Dose: 10 ml Documented by: Spironolactone (Spironolactone 25 Mg Tablet) 25 mg PO DAILY [facility] Last Admin: 02/03/21 07:56 Dose: 25 mg Documented by: Medical Necessity - Tobacco Use Smoking Status: Former smoker Tobacco Use: Non-smoker Assessment/Plan All Active Problems (Last Reviewed 09/19/20 @ 15:[address] 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 * lasix held today. Per nephrology, to hold lasix as well. continue IV and oral potassium replacement * check Mg * . #Type 2 diabetes mellitus * diabetes meds on hold due to hypoglycemia * ISS. Accuchecks ACHS * A1C is 5.9. Will therefore dc insulin, and keep patient on oral meds. She is on NPH 20 units in the morning and 50 units at night as well as sliding scale at home. I think this can all be discontinued and patient now kept on oral Metformin. * #UTI: urine cultured ESBL E Coli. Patient now on meropenem. Blood cultures are negative #Hypertension: on metoprolol #Hyperlipidemia: on statin #Chronic HFpEf; on spironolactone. lasix and metolazone discontinued. #Hypothyroidism: on synthroid DVT prophylaxis: lovenox Disposition: for dc home once potassium is normalised Inpatient E&M: 89231 Subs Hosp L2
[2021-02-03 15:21] LABS: Magnesium 1.9 mg/dL (1.6-2.6)
[2021-02-03 16:50] LABS: Bedside Glucose 239 mg/dL (70-110)
[2021-02-03] MEDS: 0.9% Saline Lock 10 ML Syringe IV (21:39)
[2021-02-03] MEDS: Atorvastatin Calcium 10 MG Tablet PO (21:39)
[2021-02-03 22:21] LABS: Bedside Glucose 226 mg/dL (70-110)
[2021-02-04 03:01] VITALS: PULSE 80
[2021-02-04 03:30] VITALS: BP 114/44; PULSE 81; RESP 18; TEMP 36.3; O2SAT 95
[2021-02-04] MEDS: Enoxaparin 40 MG/0.4 ML Syringe SC (06:43)
[2021-02-04] MEDS: Levothyroxine 75 MCG Tablet PO (06:44)
[2021-02-04] MEDS: Pantoprazole Sodium 20 MG Tablet PO (06:44)
[2021-02-04] MEDS: Insulin Lispro 100 UNIT/ML INSULN.PEN SC ×2 (06:44→12:17)
[2021-02-04 06:50] LABS: Bedside Glucose 234 mg/dL (70-110)
[2021-02-04 07:07] LABS: Anion Gap 9 (5-15); BUN 26 mg/dL (7-18); BUN/Creat Ratio 24.1 RATIO (10-20); Calcium,Total 9.3 mg/dL (8.5-10.1); Chloride 102 mmol/L (98-107); Creatinine, Serum 1.08 mg/dL (0.55-1.02); EST Glomerular Filtration Rate 52 mL/min (>60); Est Glom Filt Rate - Afr Amer 63 mL/min (>60); Estimated Creatinine Clearance 36.47 ml/min; Glucose 224 mg/dL (74-106); Potassium 3.5 mmol/L (3.5-5.1); Sodium Level 134 mmol/L (136-145)
[2021-02-04 08:00] VITALS: PULSE 72
[2021-02-04 08:23] VITALS: O2SAT 95
[2021-02-04] MEDS: Potassium Chloride Oral Tablet 20 MEQ 40 MEQ PO ×2 (08:51→12:18)
[2021-02-04] MEDS: Folic Acid 1 MG Tablet PO (08:51)
[2021-02-04] MEDS: Aspirin 81 MG TAB.CHEW PO (08:51)
[2021-02-04] MEDS: HYDROcodone Bitartrate/Apap 5/325 Tablet PO (08:54)
[2021-02-04] MEDS: Polyethylene Glycol 3350 17 GM PACKET PO (08:55)
[2021-02-04] MEDS: Isosorbide Mononitrate 60 MG Tablet PO (08:55)
[2021-02-04] MEDS: Allopurinol 300 MG Tablet PO (09:00)
[2021-02-04 10:00] VITALS: BP 123/48; PULSE 81; RESP 16; TEMP 36.3; O2SAT 96
[2021-02-04] MEDS: Fluticasone 0.05% 1 SPRAY NASAL.SRY 2 SPRAY NASAL (11:07)
[2021-02-04] MEDS: Lactulose 20 GM/30 ML UDC 10 GM PO (11:08)
[2021-02-04] MEDS: Methylcellulose 2 GM Bottle PO (11:08)
[2021-02-04] MEDS: guaiFENesin 600 MG Tablet PO (11:08)
[2021-02-04] MEDS: FLUoxetine 20 MG Capsule 40 MG PO (11:09)
[2021-02-04] MEDS: Montelukast 10 MG Tablet PO (11:09)
[2021-02-04 11:10] VITALS: BP 123/48; PULSE 82
[2021-02-04] MEDS: Spironolactone 25 MG Tablet PO (11:10)
[2021-02-04] MEDS: Metoprolol(XL)Succ 25 MG Tablet PO (11:10)
--- NOTE | 2021-02-04 12:14 | PCM.TXEXTCAR ---
- Diet 01/30/21 07:15 Diet: Cardiac: Calorie-Controlled Food consistency:: Regular Liquid Consistency:: Regular/Thin Dietary Modifications:: Sodium Restricted Type of Dietary Supplement:: Ensure Enlive Diet Comments: chocolate How many daily calories?: 1800 calorie - Routine Orders/Code Status Enema Type: Fleetz Enema Frequency: Daily PRN Suppository Type: Dulcolax 10mg Suppository Frequency: Daily PRN Keep PO Greater than or Equal to (%): 90 - Wound(s) RFA Wound Type: Skin Tear L Wrist Wound Type: Skin Tear L HAnd Wound Type: Skin Tear - Therapies Weight Bearing: Weight bearing as tolerated Physical Therapy: Eval and Treat Occupational Therapy: Eval and Treat - Allergies/Procedures Done in Hospital Allergies/Adverse Reactions: Allergies Iodinated Contrast Media [CONTRASTS] Adverse Reaction (Verified 01/30/21 03:51) Hives Procedures: None - Type of Care/Length of Stay Estimated LOS: Convalescent Care Less Than 30 days Type of Care Needed: Skilled Rehab Potential: Good Prognosis: Good - Additional Orders/Day of Discharge Day of Discharge: 02/04/21 - Dietary and Speech Recommendations Dietitian Recommendations/Changes: Will add sodium restriction to pt current diet order RT hx CHF- continue Cardiac 1800 can control. Rec 1500 ml fluid restriction as indicated. - Follow Up Care Primary Care Physician: Rommel Arango MD [Primary Care Provider] - Please follow up with your Primary Care Physician in: 1-2 weeks
--- NOTE | 2021-02-04 12:15 | PCM.DC.SUM ---
Discharge Date and Diagnosis - Problem List Patient Problems: Active and Suspected Problems (Last Reviewed 09/19/20 @ 15:[address] Long Jovel MD) UTI (urinary tract infection) (Acute) Hypoglycemia due to type 2 diabetes mellitus (Acute) Hypokalemia (Acute) Date of Admission: 01/30/21 Date of Discharge: 02/04/21 - Primary Discharge Diagnosis Acute Problems: Active Problems (Last Reviewed 09/19/20 @ 15:[address] Long Jovel MD) UTI (urinary tract infection) (Acute) Hypoglycemia due to type 2 diabetes mellitus (Acute) refractory Hypokalemia (Acute) - Secondary Discharge Diagnosis Chronic Problems: Chronic Problems (Last Reviewed 09/19/20 @ 15:[address] Long Jovel MD) Insulin dependent diabetes mellitus (Chronic) Atherosclerosis of coronary artery of [place] heart without angina pectoris (Chronic) Chronic diastolic (congestive) heart failure (Chronic) Nonrheumatic aortic (valve) stenosis (Chronic) Right bundle branch block (RBBB) (Chronic) Essential hypertension (Chronic) Hyperlipemia (Chronic) Hospital Course and Treatment Imaging Results: Diagnostic Data Chest X-Ray 01/30/21 04:09 IMPRESSION: Possible mild vascular congestion. Cardiomegaly. Cannot exclude left-sided pleural effusion. Electronically Signed: Jessica Hall MD at 4:45 EDT , Service support , Brain CT 01/30/21 04:11 IMPRESSION: Involutional changes otherwise CT brain within normal limits for age. Specifically, no acute intracranial hemorrhage or space-occupying lesion. Electronically Signed: Jessica Hall MD at 4:48 EDT , Service support , Operations: None Procedures: None Summary of Care Provided: The patient is a 80 year old F with an extensive PMH as outlined. She was admitted via the ED on 01/30/2021 with a complaint of mechanical fall and syncope. Patient states she got up in the middle of the night to go and urinate and does not member what happened afterwards. Her daughter responded to her life alert and she was found on the floor flailing her arms and legs about. Daughter checked her blood sugar and it was in the 30s so she was given some juice to drink and sugars came up to the 80s and she became more alert. She says she had been eating well and had been taking her insulin as scheduled. She was brought into the ED on account of syncope and mechanical fall due to hypoglycemia. She was found to be hypokalemic on admission as well. Urinalysis showed evidence of UTI. She was started on IV ceftriaxone and urine cultures were obtained. Her insulin was held. Potassium was aggressively replaced. Magnesium was within normal limits. Potassium however was refractory to correction. Metolazone was discontinued. Potassium still remains low so nephrology was consulted. Lasix was also held. Patient's potassium gradually improved. Was 3.5 on day of discharge. Urine cultured E. coli which was ESBL responsive to meropenem. She was put on IV meropenem which she received a 3-day course. Lasix was decreased to 20 mg twice daily and she was started on p.o. spironolactone to help with hypokalemia. She was discharged on p.o. potassium 40 mg twice daily. She is to follow-up potassium checks in the assisted. A1c was checked which was 5.9. Her sugars were in the 200s during admission. Her NPH insulin was therefore discontinued permanently and she was put on p.o. Metformin 500 mg twice daily. Due to debility, she was skilled as needed's rehab and was discharged to the transitional care unit on 02/04/2021. She is to follow-up with her primary care doctor in 1 to 2 weeks. Patient seen and examined prior to discharge. She had no complaints. Review of symptoms otherwise negative. Labs and vitals reviewed. Home medication reviewed and reconciled. O/E: Vital Signs Temp Pulse Resp BP Pulse Ox 97.4 F L 82 16 123/48 H 96 02/04/21 10:00 02/04/21 11:10 02/04/21 10:00 02/04/21 11:10 02/04/21 10:00 General: Alert, Oriented x3, Cooperative, No apparent distress HEENT: Atraumatic, PERRLA, EOMI, Normocephalic Oral: Dry Mucosa Neck: Supple, No JVD, Negative Carotid Bruits Lungs: Clear to auscultation, Normal air movement, No rhonchi, No wheeze, No rales Cardiovascular: Regular rate, Regular Rhythm, Normal S1, Normal S2, No murmurs Abdomen: Bowel Sounds Present, Soft, Non Tender, Non-Distended, No Hepato-splenomegaly Extremities: No clubbing, No cyanosis, No edema, Capillary Refill Less than 3 Seconds Skin: No rashes, No breakdown, - - ecchymotic patches on upper extremities resolving Musculoskeletal: No Tenderness to Palpation of Joints or Extremities Lymphatic: No Cervical, Supraclavicular, or Inguinal Adenopathy Neurological: Cranial nerves II-XII grossly intact, Neuro grossly intact, Motor Exam 5/5 strength throughout Psych/Mental Status: Normal Affect, Appropriate, Alert and oriented to time, place, person, mood and affect Plan is for discharge to TCU today. Patient Problems: Active and Suspected Problems (Last Reviewed 09/19/20 @ 15:[address] Long Jovel MD) UTI (urinary tract infection) (Acute) Hypoglycemia due to type 2 diabetes mellitus (Acute) Hypokalemia (Acute) - Physical Exam Vitals/I&O's: Vital Signs Temp Pulse Resp BP Pulse Ox 97.4 F L 82 16 123/48 H 96 02/04/21 10:00 02/04/21 11:10 02/04/21 10:00 02/04/21 11:10 02/04/21 10:00 Oxygen Delivery Method Room Air Weight: 195 lb 12.328 oz Body Mass Index (BMI) 33.5 Intake and Output for Last 24 Hours 02/02/21 02/03/21 02/04/21 23:59 23:59 23:59 Intake Total 790 / 790 1325 / 1375 350 / 350 Output Total 800 / 800 1500 / 2350 1100 / 1100 Balance -10 / -10 -175 / -975 -750 / -750 Microbiology Past 72 Hours 01/30/21 06:12 Blood Culture (Wb) - Right Hand Blood Culture - Final No growth in 5 days. 01/30/21 06:15 Blood Culture (Wb) - Anticubital Left Blood Culture - Final No growth in 5 days. 02/02/21 13:20 Mucosa - Nasopharyngeal SARS-CoV-2 Antigen (Rapid) - Final 01/30/21 05:30 Urine, Clean Catch Urine Culture - Final Presumptive E. coli Laboratory Results 02/03/21 06:05: Magnesium 1.9 02/03/21 16:00: POC Glucose 239 H 02/03/21 21:31: POC Glucose 226 H 02/04/21 05:50: Sodium 134 L, Potassium 3.5, Chloride 102, Carbon Dioxide 23.0, Anion Gap 9, BUN 26 H, Creatinine 1.08 H, Estim Creat Clear Calc 36.47, Est GFR (MDRD) Af Amer 63, Est GFR (MDRD) Non-Af 52 L, BUN/Creatinine Ratio 24.1 H, Glucose 224 H, Calcium 9.3 02/04/21 06:42: POC Glucose 234 H Current Medications Hydrocodone Bitart/Acetaminophen (Hydrocodone Bitartrate/Apap 5/325 Tablet) 1 tablet PO Q6H PRN PRN PRN Reason: Pain Score 1-10 Last Admin: 02/04/21 08:54 Dose: 1 tablet Documented by: Allopurinol (Allopurinol 300 Mg Tablet) 300 mg PO DAILY [facility] Last Admin: 02/04/21 09:00 Dose: 300 mg Documented by: Aspirin (Aspirin 81 Mg Tab.Chew) 81 mg PO DAILY@0800 [facility] Last Admin: 02/04/21 08:51 Dose: 81 mg Documented by: Atorvastatin Calcium (Atorvastatin Calcium 10 Mg Tablet) 10 mg PO QHS [facility] Last Admin: 02/03/21 21:39 Dose: 10 mg Documented by: Dextrose (Dextrose 50%-Water 25 Gm/50 Ml Disp.Syrin) 0 gm IV X1 PRN; Protocol PRN Reason: Hypoglycemia Docusate Sodium (Docusate Sodium 100 Mg Capsule) 100 mg PO DAILY PRN PRN PRN Reason: Constipation Enoxaparin Sodium (Enoxaparin 40 Mg/0.4 Ml Syringe) 40 mg SC DAILY@0600 [facility] Last Admin: 02/04/21 06:43 Dose: 40 mg Documented by: Estrogens Conjugated (Estrogens,Conj. 1 Tube) 1 dose VAGINAL MoWeFr [facility] Last Admin: 02/02/21 09:30 Dose: 1 dose Documented by: Fluoxetine HCl (Fluoxetine 20 Mg Capsule) 40 mg PO DAILY [facility] Last Admin: 02/04/21 11:09 Dose: 40 mg Documented by: Fluticasone Propionate (Fluticasone 0.05% 1 [place] Nasal.Sry) 2 spray NASAL DAILY [facility] Last Admin: 02/04/21 11:07 Dose: 2 spray Documented by: Folic Acid (Folic Acid 1 Mg Tablet) 1 mg PO DAILY@0800 [facility] Last Admin: 02/04/21 08:51 Dose: 1 mg Documented by: Furosemide (Furosemide 40 Mg Tablet) 40 mg PO BIDLX [facility] Last Admin: 02/03/21 07:59 Dose: 40 mg Documented by: Glucagon (Glucagon 1 Mg/Ml Syringe) 1 mg IM .X1 PRN PRN Reason: Hypoglycemia Guaifenesin (Guaifenesin 600 Mg Tablet) 600 mg PO BID [facility] Last Admin: 02/04/21 11:08 Dose: 600 mg Documented by: Sodium Chloride () 250 mls @ 15 mls/hr IV .[id number] PRN PRN Reason: Additional IVPB Infusion Meropenem 500 mg/ Sodium (Chloride) 60 mls @ 100 mls/hr IV Q12 [facility] Last Admin: 02/04/21 11:07 Dose: 100 mls/hr Documented by: Insulin Human Lispro (Insulin Lispro 100 Unit/Ml Insuln.Pen) 0 unit SC [facility]; Protocol Last Admin: 02/04/21 06:44 Dose: 2 u Documented by: Isosorbide Mononitrate (Isosorbide Mononitrate 60 Mg Tablet) 60 mg PO BID [facility] Last Admin: 02/04/21 08:55 Dose: 60 mg Documented by: Lactulose (Lactulose 20 Gm/30 Ml Udc) 10 gm PO BID [facility] Last Admin: 02/04/21 11:08 Dose: 10 gm Documented by: Levothyroxine Sodium (Levothyroxine 75 Mcg Tablet) 75 mcg PO DAILY@0600 [facility] Last Admin: 02/04/21 06:44 Dose: 75 mcg Documented by: Methylcellulose (Methylcellulose 2 Gm Bottle) 2 gm PO DAILY [facility] Last Admin: 02/04/21 11:08 Dose: 2 gm Documented by: Metolazone (Metolazone 2.5 Mg Tablet) 2.5 mg PO MoWeFr@1000 [facility] Last Admin: 01/31/21 09:18 Dose: 2.5 mg Documented by: Metoprolol Succinate (Metoprolol(Xl)Succ 25 Mg Tablet) 25 mg PO DAILY [facility] Last Admin: 02/04/21 11:10 Dose: 25 mg Documented by: Montelukast Sodium (Montelukast 10 Mg Tablet) 10 mg PO DAILY [facility] Last Admin: 02/04/21 11:09 Dose: 10 mg Documented by: Pantoprazole Sodium (Pantoprazole Sodium 20 Mg Tablet) 20 mg PO DAILY@0600 [facility] Last Admin: 02/04/21 06:44 Dose: 20 mg Documented by: Polyethylene Glycol (Polyethylene Glycol 3350 17 Gm Packet) 17 gm PO DAILY [facility] Last Admin: 02/04/21 08:55 Dose: 17 gm Documented by: Potassium Chloride (Potassium Chloride Oral Tablet 20 Meq) 40 meq PO TIDCM [facility] Last Admin: 02/04/21 08:51 Dose: 40 meq Documented by: Sodium Chloride (0.9% Saline Lock 10 Ml Syringe) 10 - 40 ml IV UD PRN PRN Reason: SALINE FLUSH Last Admin: 02/03/21 21:39 Dose: 10 ml Documented by: Spironolactone (Spironolactone 25 Mg Tablet) 25 mg PO DAILY [facility] Last Admin: 02/04/21 11:10 Dose: 25 mg Documented by: Discharge Diet: Low fat/ Low Cholesterol Home Medications: Medications to take at Discharge Albuterol Aerosols [Ventolin Aerosols] 2.5 mg INHALATION TID 06/05/19 Aspirin [Aspirin, Baby] 81 mg PO DAILY@0800 06/05/19 Colchicine 0.6 mg PO PRN PRN 06/05/19 Folic Acid 1 mg PO DAILY 06/05/19 Insulin Regular, Human [Humulin R] 10 units SUBCUT QHS 06/05/19 Isosorbide Mononitrate [Imdur] 60 mg PO BID 06/05/19 Levothyroxine [Synthroid] 75 mcg PO DAILY 06/05/19 Metoprolol Succinate [Toprol Xl] 25 mg PO DAILY 06/05/19 Nitroglycerin (INPATIENT USE) [Nitrostat] 0.4 mg SUBLINGUAL Q5M PRN 06/05/19 Omeprazole 40 mg PO DAILY 06/05/19 Polyethylene Glycol 3350 [Miralax] 17 gm PO DAILY 06/05/19 Simvastatin 20 mg PO QHS 06/05/19 Methylcellulose [Citrucel] 850 gm PO DAILY 06/29/19 Nystatin Powder [Mycostatin Powder] 1 applic TOPICAL BID #1 bottle 07/02/19 cranberry 500 mg capsule 500 mg PO DAILY cap 11/27/19 allopurinol 300 mg tablet 300 mg PO DAILY tab 09/19/20 fluoxetine 40 mg capsule 40 cap PO DAILY 09/19/20 guaifenesin 600 mg tablet, extended release 12 hr 600 mg PO BID 09/19/20 Docusate Sodium [Colace] 100 mg PO DAILY PRN PRN 01/30/21 Estrogens, Conjugated [Premarin] 0.625 mg VAGINAL MOWEFR 01/30/21 Fluticasone 0.05% [Flonase Nasal [place]] 2 spray NASAL DAILY 01/30/21 Lactulose 10 gm PO BID 01/30/21 Montelukast [Singulair] 10 mg PO DAILY 01/30/21 Pantoprazole Sodium [Protonix] 20 mg PO 0600 01/30/21 Furosemide [Lasix] 20 mg PO BIDLX #60 tab 02/04/21 Metformin HCl 500 mg PO BID #60 tablet 02/04/21 Potassium Chloride Oral Tablet [K-Dur] 40 meq PO BID #60 tab 02/04/21 Spironolactone [Aldactone] 25 mg PO DAILY #30 tablet 02/04/21 Following Prescriptions Were Given to Patient: Spironolactone [Aldactone] 25 mg PO DAILY #30 tablet Prescription Printed Potassium Chloride Oral Tablet [K-Dur] 40 meq PO BID #60 tab Prescription Printed Furosemide [Lasix] 20 mg PO BIDLX #60 tab Prescription Printed Metformin HCl 500 mg PO BID #60 tablet Prescription Printed Primary Care Physician: Rommel Arango MD [Primary Care Provider] - Please follow up with your Primary Care Physician in: 1-2 weeks Disposition: Halfway facility Minutes spent on discharge:: 40 Patient Condition:: Stable Medical Necessity - Tobacco Use Smoking Status: Former smoker Tobacco Use: Non-smoker Meaningful Use Info Meaningful Use Diagnoses (Choose all that apply): None applicable
[2021-02-04 12:31] LABS: Bedside Glucose 298 mg/dL (70-110)
--- NOTE | 2021-02-04 15:34 | NURSING ---
report called to chani diaz and [facility] list completed. pt reported that necklace sent home with family. all belongings packed. drsg changed to b/l skin tears.
== END 2021-02-04 15:39 | disposition skilled nursing facility (03) | DRG 641 ==
LOC: ED 06:18 → PCU 07:14
PROVIDERS: Admitting Provider Family Medicine; Emergency Provider Emergency Medicine; PCP Family Medicine; Visit Provider Student in an Organized Health Care Education/Training Program
DX: E87.6 Hypokalemia (principal); N39.0 Urinary tract infection, site not specified; Z16.12 Extended spectrum beta lactamase (ESBL) resistance; I50.32 Chronic diastolic (congestive) heart failure; I42.8 Other cardiomyopathies; B96.20 Unspecified Escherichia coli [E. coli] as the cause of diseases classified elsewhere; T50.2X5A Adverse effect of carbonic-anhydrase inhibitors, benzothiadiazides and other diuretics, initial encounter; E11.649 Type 2 diabetes mellitus with hypoglycemia without coma; I11.0 Hypertensive heart disease with heart failure; R55 Syncope and collapse; Y92.9 Unspecified place or not applicable; Z20.822 Contact with and (suspected) exposure to COVID-19; I25.10 Atherosclerotic heart disease of native coronary artery without angina pectoris; I35.0 Nonrheumatic aortic (valve) stenosis; E78.5 Hyperlipidemia, unspecified; E03.9 Hypothyroidism, unspecified; M19.90 Unspecified osteoarthritis, unspecified site; K21.9 Gastro-esophageal reflux disease without esophagitis; F32.9 Major depressive disorder, single episode, unspecified; F41.9 Anxiety disorder, unspecified; G47.33 Obstructive sleep apnea (adult) (pediatric); E66.01 Morbid (severe) obesity due to excess calories; Z68.33 Body mass index [BMI] 33.0-33.9, adult; Z23 Encounter for immunization; Z86.718 Personal history of other venous thrombosis and embolism; Z79.4 Long term (current) use of insulin; Z79.82 Long term (current) use of aspirin; Z79.890 Hormone replacement therapy; Z79.899 Other long term (current) drug therapy; Z87.891 Personal history of nicotine dependence; Z86.711 Personal history of pulmonary embolism; I25.2 Old myocardial infarction; Z90.49 Acquired absence of other specified parts of digestive tract; Z95.5 Presence of coronary angioplasty implant and graft; Z95.1 Presence of aortocoronary bypass graft; Z96.653 Presence of artificial knee joint, bilateral
CPT/HCPCS: 36415; 70450; 71045; 80048; 81001; 82962; 83036; 83605; 83735; 84132; 84484; 85025; 87040; 87086; 87088; 87186; 87426; 93005; 97110; 97162; 97166; 97530; 97535; 99285; G0008; J2185; J7030; J7040; J7050; 90686; A4216

== ENCOUNTER 2021-02-04 15:54 | Inpatient (IN) | payer MEDICARE, OTHER, SELFPAY ==
[2021-01-30 07:04] VITALS: BMI 33.5
[2021-02-04 16:00] VITALS: BP 111/61; PULSE 86; RESP 16; TEMP 37; O2SAT 96; BMI 32.8
[2021-02-04 17:36] LABS: Bedside Glucose 277 mg/dL (70-110)
[2021-02-04] MEDS: Potassium Chloride Oral Tablet 20 MEQ 40 MEQ PO (18:07)
[2021-02-04] MEDS: Isosorbide Mononitrate 60 MG Tablet PO (18:07)
[2021-02-04] MEDS: guaiFENesin 600 MG Tablet PO (18:07)
[2021-02-04] MEDS: Nystatin Powder 15gm Bottle 1 APPLIC TOPICAL (18:07)
[2021-02-04] MEDS: Lactulose 20 GM/30 ML UDC 10 GM PO (18:08)
[2021-02-04] MEDS: Insulin Lispro 100 UNIT/ML INSULN.PEN SC (18:08)
--- NOTE | 2021-02-04 19:36 | PCM.HP.STD ---
Problem List (1) Debility Status: Acute (2) Fall Status: Acute (3) Urinary tract infection due to extended-spectrum beta lactamase (ESBL) producing Escherichia coli Status: Acute (4) Hypoglycemia Status: Acute (5) Diabetes mellitus Status: Chronic (6) Coronary artery disease Status: Chronic (7) Chronic diastolic heart failure Status: Chronic (8) Hypertension Status: Chronic (9) Aortic stenosis Status: Chronic (10) Gout Status: Chronic (11) Hypothyroidism Status: Chronic (12) Gastroesophageal reflux disease Status: Chronic (13) Depression Status: Chronic (14) Hypokalemia Status: Acute (15) Right bundle branch block (RBBB) Status: Chronic (16) Hyperlipemia Status: Chronic History of Present Illness Date of Admission: 02/04/21 Chief Complaint: Here for rehabilitation, strengthening, prior to discharge home alone. 01/30/2021 The patient is a 80 year old Female with below past medical history presented to [facility] Emergency Department with fall. 01/30/2021 Chest X-ray possible mild vascular congestion, cardiomegaly. 01/30/2021 CT brain chronic involutional changes of brain. Got up to urinate, passed out on floor. Decreased level of consciousness, flailing arms, legs. Blood sugar 30. Kemper juice, glucose given, sugar 80. UA consistent with urinary tract infection, urine culture sent, blood culture sent. Low potassium. 01/30/2021 Admit to Hospital. IV potassium for hypokalemia. 01/31/2021 Hold Diabetes Medications for hypoglycemia. PT/OT. Replace potassium, Magnesium 2. 01/31/2021 Hold Metolazone for severe hypokalemia. 02/01/2021 Metolazone changed to Aldactone for severe hypokalemia. Not fluid overloaded. 02/02/2021 Potassium 40MEQ twice daily, K 3.5. 02/03/2021 ESBL E. Coli urinary tract infection treated with 3 day course of IV Meropenem. 02/04/2021 Admit to TCU with debility, here for rehabilitation, strengthening, prior to discharge home alone. Past Medical History Past Medical History (Chronic Problems): Chronic Problems (Last Reviewed 09/19/20 @ 15:[address] Long Jovel MD) Insulin dependent diabetes mellitus (Chronic) Diabetes mellitus (Chronic) Coronary artery disease (Chronic) Chronic diastolic heart failure (Chronic) Hypertension (Chronic) Aortic stenosis (Chronic) Gout (Chronic) Hypothyroidism (Chronic) Gastroesophageal reflux disease (Chronic) Depression (Chronic) Atherosclerosis of coronary artery of [place] heart without angina pectoris (Chronic) Chronic diastolic (congestive) heart failure (Chronic) Nonrheumatic aortic (valve) stenosis (Chronic) Right bundle branch block (RBBB) (Chronic) Essential hypertension (Chronic) Hyperlipemia (Chronic) Medical History: Medical History (Last Reviewed 09/19/20 @ 15:[address] Long Jovel MD) Atherosclerosis of coronary artery of [place] heart without angina pectoris (Chronic) I25.[address] elevation myocardial infarction (STEMI) (Resolved) Onset Date: 04/2013 I25.2 Chronic diastolic (congestive) heart failure (Chronic) I50.32 Nonrheumatic aortic (valve) stenosis (Chronic) I35.0 Right bundle branch block (RBBB) (Chronic) I45.10 Essential hypertension (Chronic) I10 Hyperlipemia (Chronic) E78.5 Anxiety and depression F41.9, F32.9 Chronic respiratory failure J96.10 Diverticulosis K57.90 GERD (gastroesophageal reflux disease) K21.9 Hypothyroidism E03.9 Morbid obesity E66.01 Obstructive sleep apnea G47.33 Osteoarthritis M19.90 Type II diabetes mellitus E11.9 Chronic systolic (congestive) heart failure (Resolved) I50.22 Elevated troponin Onset Date: 01/23/20 R79.89 History of deep venous thrombosis Z86.718 History of pulmonary embolism Z86.711 Hypokalemia (Resolved) E87.6 Non-ischemic cardiomyopathy I42.8 Secondary pulmonary arterial hypertension (Resolved) I27.21 Severe sepsis Onset Date: 01/23/20 A41.9, R65.20 UTI (urinary tract infection) N39.0 Urinary tract infection (Resolved) N39.0 Bacteremia R78.81 Sepsis A41.9 Allergies Iodinated Contrast Media [CONTRASTS] Adverse Reaction (Verified 01/30/21 03:51) Hives Home Medications: Ambulatory Orders Medication Instructions Recorded Albuterol Aerosols [Ventolin 2.5 mg INHALATION TID 06/05/19 Aerosols] Aspirin [Aspirin, Baby] 81 mg PO DAILY@0800 06/05/19 Colchicine 0.6 mg PO PRN PRN 06/05/19 Folic Acid 1 mg PO DAILY 06/05/19 Insulin Regular, Human [Humulin R] 10 units SUBCUT QHS 06/05/19 Isosorbide Mononitrate [Imdur] 60 mg PO BID 06/05/19 Levothyroxine [Synthroid] 75 mcg PO DAILY 06/05/19 Metoprolol Succinate [Toprol Xl] 25 mg PO DAILY 06/05/19 Nitroglycerin (INPATIENT USE) 0.4 mg SUBLINGUAL Q5M PRN 06/05/19 [Nitrostat] Omeprazole 40 mg PO DAILY 06/05/19 Polyethylene Glycol 3350 [Miralax] 17 gm PO DAILY 06/05/19 Simvastatin 20 mg PO QHS 06/05/19 Methylcellulose [Citrucel] 850 gm PO DAILY 06/29/19 cranberry 500 mg capsule 500 mg PO DAILY cap 09/22/19 allopurinol 300 mg tablet 300 mg PO DAILY tab 09/19/20 fluoxetine 40 mg capsule 40 cap PO DAILY 09/19/20 guaifenesin 600 mg tablet, 600 mg PO BID 09/19/20 extended release 12 hr Docusate Sodium [Colace] 100 mg PO DAILY PRN PRN 01/30/21 Estrogens, Conjugated [Premarin] 0.625 mg VAGINAL MOWEFR 01/30/21 Fluticasone 0.05% [Flonase Nasal 2 spray NASAL DAILY 01/30/21 [place]] Lactulose 10 gm PO BID 01/30/21 Montelukast [Singulair] 10 mg PO DAILY 01/30/21 Pantoprazole Sodium [Protonix] 20 mg PO 0600 01/30/21 Furosemide [Lasix] 20 mg PO BIDLX 02/04/21 Metformin HCl 500 mg PO BID 02/04/21 Nystatin Powder [Mycostatin Powder] 1 applic TOPICAL BID 02/04/21 Potassium Chloride Oral Tablet 40 meq PO BID 02/04/21 [K-Dur] Spironolactone [Aldactone] 25 mg PO DAILY 02/04/21 Surgical History: Surgical History (Last Reviewed 09/19/20 @ 15:[address] Long Jovel MD) H/O coronary artery bypass surgery (Resolved) Onset Date: 01/08/05 Z95.1 CABG x 2: DAVIDSON-LAD, [id number] 01/08/2005 History of coronary artery stent placement (Resolved) Onset Date: 08/02/15 Z95.5 [id number] and Prox RCA w/ 4.5 x 28 mm VeriFLEX Stent 06/16/2014; [id number] RCA w/ 3.5 x 32 mm Promus Premier 11/02/2014; PCI-Cutting Balloon Angioplasty-Prox ISR-RCA 08/02/2015 History of bilateral knee replacement Z96.653 History of cholecystectomy Z90.49 History of colectomy Z90.49 History of herniorrhaphy Z98.890, Z87.19 Surgical History: angioplasty - Cardiac stent., colectomy - With colostomy and colostomy reversal, coronary bypass surgery, - - Coronary stents; 2 knee operations Psychiatric History: Depression 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 Long Jovel MD) Mother Heart disease History Items: Heart Disease, - - Her mother at 96 following complications of surgery from broken hip. Paternal Family History: Family History (Last Reviewed 09/19/20 @ 15:[address] Long Jovel MD) Mother Heart disease History Items: - - Patient do not know her paternal medical history. Review of Systems Constitutional: Denies: Chills, Fever, Weight Change HEENT: Denies: Head Aches, Sinus Congestion, Sinus Drainage Cardiovascular: Denies: Chest Pain, Palpitations Respiratory: Denies: Cough, Shortness of breath at rest, Sputum production Gastrointestinal: Denies: Abdominal Pain, Nausea, Vomiting Genitourinary: Denies: Dysuria Musculoskeletal: Denies: Joint Pain, Joint Tenderness Skin: Denies: Rash, Wounds Neurological: Denies: Numbness, Tingling, Focal weakness Psychiatric: Denies: Anxiety, Depression, Homicidal Ideations, Suicidal Ideations Hematologic/ Lymphatic: Denies: Easy Bruising, Easy Bleeding VTE Information - Inpt Only VTE Present on Admission: No VTE Mechan Device Prophylaxis: Knee High THIERRY Hose VTE Pharm Prophylaxis ordered?: Yes Patient Problems: Active and Suspected Problems (Last Reviewed 09/19/20 @ 15:[address] Long Jovel MD) Hypokalemia (Acute) Debility (Acute) Fall (Acute) Urinary tract infection due to extended-spectrum beta lactamase (ESBL) producing Escherichia coli (Acute) Hypoglycemia (Acute) - Physical Exam Vitals/I&O's: Vital Signs Temp Pulse Resp BP Pulse Ox 98.6 F 86 16 111/61 96 02/04/21 16:00 02/04/21 16:00 02/04/21 16:00 02/04/21 16:00 02/04/21 16:00 Oxygen Delivery Method Room Air Weight: 87.09 kg Body Mass Index (BMI) 32.8 Intake and Output for Last 24 Hours 02/02/21 02/03/21 02/04/21 23:59 23:59 23:59 Intake Total 240 / 240 Balance 240 / 240 General: Alert, Oriented x3, Cooperative HEENT: Atraumatic, PERRLA, EOMI, Normocephalic Neck: Supple, No JVD, Negative Carotid Bruits Lungs: Clear to auscultation, Normal air movement Cardiovascular: Regular rate, No murmurs Abdomen: Bowel Sounds Present, Soft, Non Tender Extremities: No edema, Capillary Refill Less than 3 Seconds Skin: No rashes, No breakdown Musculoskeletal: No Tenderness to Palpation of Joints or Extremities Neurological: Cranial nerves II-XII grossly intact Psych/Mental Status: Normal Affect, Appropriate Laboratory Results 02/04/21 17:31: POC Glucose 277 H Current Medications Albuterol Sulfate (Albuterol 2.5 Mg/3 Ml Vial.Neb.) 2.5 mg INHALATION TID.RT [facility] Allopurinol (Allopurinol 300 Mg Tablet) 300 mg PO DAILYCM [facility] Aspirin (Aspirin 81 Mg Tab.Chew) 81 mg PO DAILY@0800 [facility] Atorvastatin Calcium (Atorvastatin Calcium 10 Mg Tablet) 10 mg PO QHS [facility] Bisacodyl (Bisacodyl 10 Mg Suppository) 10 mg RC DAILY PRN PRN Reason: CONSTIPATION Colchicine (Colchicine 0.6 Mg .) 0.6 mg PO DAILY PRN PRN PRN Reason: gout Docusate Sodium (Docusate Sodium 100 Mg Capsule) 100 mg PO DAILY PRN PRN PRN Reason: Constipation Estrogens Conjugated (Estrogens,Conj. 0.625 Mg Tablet) 0.625 mg PO MoWeFr@0800 [facility] Fluoxetine HCl (Fluoxetine 20 Mg Capsule) 40 mg PO DAILY [facility] Fluticasone Propionate (Fluticasone 0.05% 1 [place] Nasal.Sry) 2 spray NASAL DAILY [facility] Folic Acid (Folic Acid 1 Mg Tablet) 1 mg PO DAILYCM [facility] Furosemide (Furosemide 20 Mg Tablet) 20 mg PO BIDLX [facility] Guaifenesin (Guaifenesin 600 Mg Tablet) 600 mg PO BID [facility] Last Admin: 02/04/21 18:07 Dose: 600 mg Documented by: Insulin Human Lispro (Insulin Lispro 100 Unit/Ml Insuln.Pen) 5 unit SC TIDAC [facility] Last Admin: 02/04/21 18:08 Dose: 5 units Documented by: Isosorbide Mononitrate (Isosorbide Mononitrate 60 Mg Tablet) 60 mg PO BID [facility] Last Admin: 02/04/21 18:07 Dose: 60 mg Documented by: Lactulose (Lactulose 20 Gm/30 Ml Udc) 10 gm PO BID [facility] Last Admin: 02/04/21 18:08 Dose: 10 gm Documented by: Levothyroxine Sodium (Levothyroxine 75 Mcg Tablet) 75 mcg PO DAILY@0600 [facility] Metformin HCl (Metformin Hcl 500 Mg Tablet) [facility] Methylcellulose (Methylcellulose 2 Gm Bottle) 2 gm PO DAILY [facility] Metoprolol Succinate (Metoprolol(Xl)Succ 25 Mg Tablet) 25 mg PO DAILY [facility] Montelukast Sodium (Montelukast 10 Mg Tablet) 10 mg PO DAILY [facility] Nitroglycerin (Nitroglycerin (Inpatient Use) 0.4 Mg Tab.Subl) 0.4 mg SL Q5M PRN PRN Reason: CARDIAC/CHEST PAIN Nystatin (Nystatin Powder 15gm Bottle) 1 applic TOPICAL BID [facility]; Protocol Last Admin: 02/04/21 18:07 Dose: 1 applic Documented by: Pantoprazole Sodium (Pantoprazole Sodium 20 Mg Tablet) 20 mg PO 0600 [facility] Polyethylene Glycol (Polyethylene Glycol 3350 17 Gm Packet) 17 gm PO DAILY [facility] Potassium Chloride (Potassium Chloride Oral Tablet 20 Meq) 40 meq PO BID [facility] Last Admin: 02/04/21 18:07 Dose: 40 meq Documented by: Sodium Chloride (0.9% Saline Lock 10 Ml Syringe) 10 - 40 ml IV UD PRN PRN Reason: SALINE FLUSH Spironolactone (Spironolactone 25 Mg Tablet) 25 mg PO DAILY [facility] Tuberculin PPD (Tuberculin,Purif.Prot.Deriv. 50 Tu/Ml Vial) 5 tu ID [id number] Stop: 02/05/21 10:01 Tuberculin PPD (Tuberculin,Purif.Prot.Deriv. 50 Tu/Ml Vial) 5 tu ID [id number] ONE Stop: 02/12/21 10:01 Assessment/Plan All Active Problems (Last Reviewed 09/19/20 @ 15:[address] Long Jovel MD) UTI (urinary tract infection) (Acute) Hypoglycemia due to type 2 diabetes mellitus (Acute) Hypokalemia (Acute) Debility (Acute) Fall (Acute) Urinary tract infection due to extended-spectrum beta lactamase (ESBL) producing Escherichia coli (Acute) Hypoglycemia (Acute) H/O coronary artery bypass surgery (Resolved 01/08/05) History of coronary artery stent placement (Resolved 08/02/15) History of ST elevation myocardial infarction (STEMI) (Resolved 04/2013) Bacteremia (Resolved) Chronic systolic (congestive) heart failure (Resolved) Hypokalemia (Resolved) Secondary pulmonary arterial hypertension (Resolved) Shortness of breath (Resolved) Urinary tract infection (Resolved) 80 year old female with below past medical history hospitalized for hypoglycemia secondary to ESBL E. Coli Urinary tract infection, complicated by severe hypokalemia, admitted to TCU with debility, here for rehabilitation, strengthening, prior to discharge home alone. Debility - PT/OT. Pain - Tylenol 1000MG Q6H PRN pain (1-10). Bowel - Miralax 17GM daily, Citrucel 2GM daily, Lactulose 10GM BID, Dulcolax 10MG [place] daily PRN. Adult immunization - Administer Prevnar 13, Pneumovax 23, Fluzone, COVID19 vaccine as appropriate. DVT prophylaxis - Lovenox 40MG SC daily. Shortness of breath - Albuterol 2.5MG nebulized TID. Gout - Allopurinol 300MG daily, Colchicine 0.6MG daily PRN. Coronary Artery Disease - Metoprolol succinate 25MG daily, Isosorbide MN 60MG twice daily, Aspirin 81MG daily, NTG 0.4MG SL Q5M PRN. Hyperlipidemia - Atorvastatin 10MG QHS. Menopausal syndrome - Premarin 0.625MG PO MWF. 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 Allergic Rhinitis - Flonase 2 spays nasal daily, Singulair 10MG daily. Folate deficiency - Folic acid 1MG daily. Chronic diastolic congestive heart failure - Metoprolol succinate 25MG Daily, Isosorbide MN 60MG twice daily, Aldactone 25MG daily, Lasix 20MG BID. Congestion - Mucinex 600MG BID. Diabetes Mellitus II - Metformin 500MG BID, Humalog 10 units TIDAC, Lantus 20 units QHS. Hypothyroidism - Levothyroxine 75MCG daily. Tinea Corporis - Nystatin powder topica BID. GERD - Pantoprazole 20MG daily. Hypokalemia - Potassium chloride 40MEQ BID, K 5.4 today, lower Potassium to 20MEQ BID, Kayexalate 30GM PO x 1 dose, BMP in AM.
[2021-02-04 19:45] VITALS: PULSE 85; RESP 16
[2021-02-04] MEDS: Albuterol 2.5 MG/3 ML VIAL.NEB. INHALATION (19:45)
[2021-02-04 21:31] LABS: Bedside Glucose 357 mg/dL (70-110)
--- NOTE | 2021-02-04 21:45 | NURSING ---
Humalog 10 units administered per order received from Dr. Mayers for blood sugar of 357. Given snack of benny crackers and Diet Coke. Pt drowsy and is resistant to take snack. Arouses easily to verbal stimulation and becomes irritable. Instructed on the importance of consuming snack to prevent hypoglycemia. Staff to continue to monitor.
[2021-02-04] MEDS: Atorvastatin Calcium 10 MG Tablet PO (21:46)
[2021-02-04] MEDS: Insulin Lispro 100 UNIT/ML INSULN.PEN 10 UNIT SC (21:49)
[2021-02-05 05:09] VITALS: BP 138/74; PULSE 88; RESP 20; TEMP 36.6; O2SAT 94
[2021-02-05] MEDS: guaiFENesin 600 MG Tablet PO ×2 (05:11→17:54)
[2021-02-05] MEDS: Enoxaparin 40 MG/0.4 ML Syringe SC (05:11)
[2021-02-05] MEDS: Polyethylene Glycol 3350 17 GM PACKET PO (05:11)
[2021-02-05] MEDS: FLUoxetine 20 MG Capsule 40 MG PO (05:12)
[2021-02-05] MEDS: Levothyroxine 75 MCG Tablet PO (05:12)
[2021-02-05 05:13] VITALS: BP 138/74; PULSE 88
[2021-02-05] MEDS: Furosemide 20 MG Tablet PO ×2 (05:13→13:41)
[2021-02-05] MEDS: Pantoprazole Sodium 20 MG Tablet PO (05:13)
[2021-02-05] MEDS: Metoprolol(XL)Succ 25 MG Tablet PO (05:13)
[2021-02-05] MEDS: Fluticasone 0.05% 1 SPRAY NASAL.SRY 2 SPRAY NASAL (05:14)
[2021-02-05] MEDS: Isosorbide Mononitrate 60 MG Tablet PO ×2 (05:14→17:55)
[2021-02-05] MEDS: Spironolactone 25 MG Tablet PO (05:15)
[2021-02-05] MEDS: Nystatin Powder 15gm Bottle 1 APPLIC TOPICAL ×2 (05:16→17:57)
[2021-02-05 05:50] LABS: Absolute Lymphocyte Count 0.93 X10^3/uL (0.83-4.51); Absolute Neutrophil Count 7.3 X10^3/uL (2.0-7.7); Basophil# 0.07 X10^3/uL; Basophil% 0.7 % (0-1); Eosinophil# 0.16 X10^3/uL; Eosinophils% 1.6 % (0-5); Hematocrit 37.1 % (37-47); Hemoglobin 11.3 g/dL (12.0-15.0); Lymphocyte # 0.93 X10^3/ul (4.0); Lymphocyte % 9.4 % (19-41); Mean Corp Hgb Conc 30.5 g/dL (32-36); Mean Corpuscular Hgb 25.2 pg (27.0-32.0); Mean Corpuscular Volume 82.8 fL (81-99); Mean Platelet Vol. 10.8 fl (6.2-12.0); Monocyte# 1.31 X10^3/uL; Monocyte% 13.3 % (0-10); NRBC Flagged by Analyzer 0 % (0-5); Neutrophil # 7.34 X10^3/uL (2.7-7.7); Neutrophil % 74.5 % (47-70); Platelet Count 308 K/mm3 (150-450); RBC Distribution Width CV 19.7 % (11.6-14.6); RBC Distribution Width SD 58.5 fl (35.1-43.9); Red Blood Count 4.48 M/mm3 (4.2-5.4); White Blood Count 9.9 K/mm3 (4.4-11.0)
[2021-02-05 06:16] LABS: Anion Gap 6 (5-15); BUN 27 mg/dL (7-18); BUN/Creat Ratio 23.1 RATIO (10-20); Calcium,Total 9.2 mg/dL (8.5-10.1); Chloride 104 mmol/L (98-107); Creatinine, Serum 1.17 mg/dL (0.55-1.02); EST Glomerular Filtration Rate 47 mL/min (>60); Est Glom Filt Rate - Afr Amer 57 mL/min (>60); Estimated Creatinine Clearance 33.67 ml/min; Glucose 350 mg/dL (74-106); Potassium 5.4 mmol/L (3.5-5.1); Sodium Level 133 mmol/L (136-145)
[2021-02-05 06:25] LABS: Bedside Glucose 321 mg/dL (70-110)
[2021-02-05 07:05] VITALS: PULSE 86; RESP 16
[2021-02-05] MEDS: Albuterol 2.5 MG/3 ML VIAL.NEB. INHALATION ×3 (07:05→19:00)
[2021-02-05] MEDS: Lactulose 20 GM/30 ML UDC 10 GM PO ×2 (08:12→17:54)
[2021-02-05] MEDS: Montelukast 10 MG Tablet PO (08:14)
[2021-02-05] MEDS: Estrogens,Conj. 0.625 MG Tablet PO (08:24)
[2021-02-05] MEDS: Insulin Lispro 100 UNIT/ML INSULN.PEN 15 UNIT SC (08:24)
[2021-02-05] MEDS: Aspirin 81 MG TAB.CHEW PO (08:24)
[2021-02-05] MEDS: Allopurinol 300 MG Tablet PO (08:24)
[2021-02-05] MEDS: metFORMIN HCl 500 MG Tablet PO ×2 (08:24→17:55)
[2021-02-05] MEDS: Folic Acid 1 MG Tablet PO (08:24)
[2021-02-05] MEDS: Sodium Polystyrene Sulfonate 15 GM/60 ML UDC 30 GM PO (09:24)
[2021-02-05 11:10] LABS: Bedside Glucose 360 mg/dL (70-110)
[2021-02-05] MEDS: Tuberculin,Purif.prot.deriv. 50 TU/ML Vial 5 ML ID (11:14)
--- NOTE | 2021-02-05 11:19 | PCM.PN.RX ---
<Ludmila Parnell - Last Filed: 02/05/21 11:19> Progress Note - Pharmacy Subjective: TCU Admission Objective: Allergies Iodinated Contrast Media [CONTRASTS] Adverse Reaction (Verified 01/30/21 03:51) Hives Current Medications Generic Name Dose Route Start Last Admin Trade Name Maurisioq PRN Reason Stop Dose Admin Acetaminophen 1,000 mg 02/04/21 20:02 Acetaminophen 500 Mg Tablet PO Q6H PRN PRN Pain Score 1-10 Albuterol Sulfate 2.5 mg 02/04/21 22:00 02/05/21 07:05 Albuterol 2.5 Mg/3 Ml Vial.Neb. INHALATION 2.5 mg TID.RT AME Administration Allopurinol 300 mg 02/05/21 08:00 02/05/21 08:24 Allopurinol 300 Mg Tablet PO 300 mg DAILYCM AME Administration Aspirin 81 mg 02/05/21 08:00 02/05/21 08:24 Aspirin 81 Mg Tab.Chew PO 81 mg DAILY@0800 AME Administration Atorvastatin Calcium 10 mg 02/04/21 22:00 02/04/21 21:46 Atorvastatin Calcium 10 Mg Tablet PO 10 mg QHS AME Administration Bisacodyl 10 mg 02/04/21 16:30 Bisacodyl 10 Mg Suppository RC DAILY PRN CONSTIPATION Colchicine 0.6 mg 02/04/21 16:15 Colchicine 0.6 Mg . PO DAILY PRN PRN gout Enoxaparin Sodium 40 mg 02/05/21 06:00 02/05/21 05:11 Enoxaparin 40 Mg/0.4 Ml Syringe SC 40 mg DAILY@0600 AME Administration Estrogens Conjugated 0.625 mg 02/05/21 08:00 02/05/21 08:24 Estrogens,Conj. 0.625 Mg Tablet PO 0.625 mg MoWeFr@0800 AME Administration Fluoxetine HCl 40 mg 02/05/21 06:00 02/05/21 05:12 Fluoxetine 20 Mg Capsule PO 40 mg DAILY AME Administration Fluticasone Propionate 2 spray 02/05/21 06:00 02/05/21 05:14 Fluticasone 0.05% 1 [place] Nasal.Sry NASAL 2 spray DAILY AME Administration Folic Acid 1 mg 02/05/21 08:00 02/05/21 08:24 Folic Acid 1 Mg Tablet PO 1 mg DAILYCM AME Administration Furosemide 20 mg 02/05/21 06:00 02/05/21 05:13 Furosemide 20 Mg Tablet PO 20 mg BIDLX AME Administration Guaifenesin 600 mg 02/04/21 18:00 02/05/21 05:11 Guaifenesin 600 Mg Tablet PO 600 mg BID [facility] Administration Insulin Glargine 20 units 02/05/21 22:00 Insulin Glargine 100 Units/Ml Pen SC QHS AME Insulin Human Lispro 10 unit 02/05/21 11:45 Insulin Lispro 100 Unit/Ml Insuln.Pen SC TIDAC [facility] Isosorbide Mononitrate 60 mg 02/04/21 18:00 02/05/21 05:14 Isosorbide Mononitrate 60 Mg Tablet PO 60 mg BID [facility] Administration Lactulose 10 gm 02/04/21 18:00 02/05/21 08:12 Lactulose 20 Gm/30 Ml Udc PO 10 gm BID [facility] Administration Levothyroxine Sodium 75 mcg 02/05/21 06:00 02/05/21 05:12 Levothyroxine 75 Mcg Tablet PO 75 mcg DAILY@0600 [facility] Administration Metformin HCl 500 mg 02/05/21 08:00 02/05/21 08:24 Metformin Hcl 500 Mg Tablet PO 500 mg BIDCM [facility] Administration Methylcellulose 2 gm 02/05/21 06:00 02/05/21 08:01 Methylcellulose 2 Gm Bottle PO Not Given DAILY [facility] Metoprolol Succinate 25 mg 02/05/21 06:00 02/05/21 05:13 Metoprolol(Xl)Succ 25 Mg Tablet PO 25 mg DAILY [facility] Administration Montelukast Sodium 10 mg 02/05/21 06:00 02/05/21 08:14 Montelukast 10 Mg Tablet PO 10 mg DAILY [facility] Administration Nitroglycerin 0.4 mg 02/04/21 16:21 Nitroglycerin (Inpatient Use) 0.4 Mg Tab.Subl SL Q5M PRN CARDIAC/CHEST PAIN Nystatin 1 applic 02/04/21 18:00 02/05/21 05:16 Nystatin Powder 15gm Bottle TOPICAL 1 applic BID [facility] Administration Protocol Pantoprazole Sodium 20 mg 02/05/21 06:00 02/05/21 05:13 Pantoprazole Sodium 20 Mg Tablet PO 20 mg 0600 [facility] Administration Polyethylene Glycol 17 gm 02/05/21 06:00 02/05/21 05:11 Polyethylene Glycol 3350 17 Gm Packet PO 17 gm DAILY AME Administration Potassium Chloride 20 meq 02/05/21 12:00 Potassium Chloride Oral Tablet 20 Meq PO BID AME Sodium Chloride 10 - 40 ml 02/04/21 16:01 0.9% Saline Lock 10 Ml Syringe IV UD PRN SALINE FLUSH Spironolactone 25 mg 02/05/21 06:00 02/05/21 05:15 Spironolactone 25 Mg Tablet PO 25 mg DAILY AME Administration Tuberculin PPD 5 tu 02/12/21 10:00 Tuberculin,Purif.Prot.Deriv. 50 Tu/Ml Vial ID 02/12/21 10:01 X1 ONE Problem List (Last Reviewed 09/19/20 @ 15:[address] Long Jovel MD) Hypokalemia (Acute) Debility (Acute) Fall (Acute) Urinary tract infection due to extended-spectrum beta lactamase (ESBL) producing Escherichia coli (Acute) Hypoglycemia (Acute) Diabetes mellitus (Chronic) Coronary artery disease (Chronic) Chronic diastolic heart failure (Chronic) Hypertension (Chronic) Aortic stenosis (Chronic) Gout (Chronic) Hypothyroidism (Chronic) Gastroesophageal reflux disease (Chronic) Depression (Chronic) Right bundle branch block (RBBB) (Chronic) Hyperlipemia (Chronic) Vital Signs Temp Pulse Resp BP Pulse Ox 97.9 F 86 16 138/74 H 94 02/05/21 05:09 02/05/21 07:05 02/05/21 07:05 02/05/21 05:13 02/05/21 05:09 Oxygen Delivery Method Room Air Weight: 87.09 kg Body Mass Index (BMI) 32.8 Sodium 133 mmol/L (136-145) L 02/05/21 05:25 Potassium 5.4 mmol/L (3.5-5.1) H 02/05/21 05:25 Chloride 104 mmol/L (98-107) 02/05/21 05:25 Carbon Dioxide 23.0 mmol/L (21.0-32.0) 02/05/21 05:25 Anion Gap 6 (5-15) 02/05/21 05:25 BUN 27 mg/dL (7-18) H 02/05/21 05:25 Creatinine 1.17 mg/dL (0.55-1.02) H 02/05/21 05:25 Est GFR (MDRD) Af Amer 57 mL/min (>60) L 02/05/21 05:25 Est GFR (MDRD) Non-Af 47 mL/min (>60) L 02/05/21 05:25 BUN/Creatinine Ratio 23.1 RATIO (10-20) H 02/05/21 05:25 Glucose 350 mg/dL (74-106) H 02/05/21 05:25 Assessment/Plan: 1. Pain: acetaminophen 1000mg PO Q6H PRN pain 1-08/05. Please continue to monitor for pain and PRN usage. 2. DVT prophylaxis: enoxaparin 40mg SC daily. Please continue to monitor for S/S of bleeding, hemoglobin (last 11.3g/dL) and renal function. 3. Shortness of breath: albuterol nebulized soln 2.5mg inhalation TID. Please continue to monitor for tachycardia. 4. CAD/CHF: metoprolol succinate 25mg PO daily, isosorbide mononitrate 60mg PO BID, aspirin 81mg PO DAILYCM, nitroglycerin 0.4mg SL Q5M PRN chest pain, spironolactone 25mg PO daily and furosemide 20mg PO BIDLX. Please continue to monitor BP (last 138/74), HR (last 86), flushing, S/S of bleeding, chest pain, potassium (Last 5.4mmol/L), and renal function. 5. Gout: allopurinol 300mg PO daily and colchicine 0.6mg PO daily PRN gout. Please continue to monitor for S/S of gout and renal function. *6. Hyperlipidemia: atorvastatin 10mg PO QHS. Please continue to monitor lipid panel (last 02/17/20) and for muscle pain. Patient due for lipid panel on 02/16/21. Please consider ordering if patient is still admitted and if clinically appropriate. Thanks. 7. Diabetes mellitus II: metformin 500mg PO BID, insulin glargine 20units SC QHS, and insulin lispro 10units SC TIDCM. Please continue to monitor BG (last 360mg/dL) and hemoglobin A1c (last 5.9% on 02/01/21). Please continue to monitor renal function and S/S of hypo/hyperglycemia. 8. Congestion: guaifenesin 600mg PO BID. Please continue to monitor. *9. Hypothyroidism: levothyroxine 75mcg PO daily. Please continue to monitor TSH (last 02/17/20) and for S/S of hypo/hyperthyroidism. Patient is due for TSH on 02/16/21. Please consider ordering if patient still admitted and if clinically appropriate. Thanks. 10. GERD: pantoprazole 20mg PO daily. Please continue to monitor for S/S of GERD and diarrhea. 11. Hypokalemia: potassium chloride 20mEq PO BID. Dose lowered today and kayexalate given. Last potassium is 5.4mmol/L. Please continue to monitor potassium levels. Thanks. 12. Menopausal syndrome: Premarin 0.625mg PO MWF. Please continue to monitor for menopausal symptoms. 13. Allergic rhinitis: fluticasone 2 sprays nasally daily and montelukast 10mg PO daily. Please continue to monitor for allergy symptoms. 14. Folate deficiency: folic acid 1mg PO daily. Please continue to monitor. Psychotropic Medications: 1. Depression: fluoxetine 40mg PO daily. Please see physician note regarding GDR. Unnecessary Medications: None Bowel Regimen: Miralax 17gm PO daily, methylcellulose 2gm PO daily, lactulose 10gm PO BID, and bisacodyl 10mg RC daily PRN constipation. Please continue to monitor for constipation and PRN usage. Date of Note:: 02/05/21 - Provider Comments Provider responsibility: Provider responsible to enter orders to implement recommendations <David Mayers Chi - Last Filed: 02/09/21 17:10> Progress Note - Pharmacy Subjective: [] Objective: Allergies Iodinated Contrast Media [CONTRASTS] Adverse Reaction (Verified 01/30/21 03:51) Hives Current Medications Generic Name Dose Route Start Last Admin Trade Name Freq PRN Reason Stop Dose Admin Acetaminophen 1,000 mg 02/04/21 20:02 Acetaminophen 500 Mg Tablet PO Q6H PRN PRN Pain Score 1-10 Albuterol Sulfate 2.5 mg 02/04/21 22:00 02/09/21 13:20 Albuterol 2.5 Mg/3 Ml Vial.Neb. INHALATION 2.5 mg TID.RT MAE Administration Allopurinol 300 mg 02/05/21 08:00 02/09/21 08:55 Allopurinol 300 Mg Tablet PO 300 mg DAILYCM AME Administration Aspirin 81 mg 02/05/21 08:00 02/09/21 08:53 Aspirin 81 Mg Tab.Chew PO 81 mg DAILY@0800 AME Administration Atorvastatin Calcium 10 mg 02/04/21 22:00 02/08/21 21:57 Atorvastatin Calcium 10 Mg Tablet PO 10 mg QHS [facility] Administration Bisacodyl 10 mg 02/04/21 16:30 Bisacodyl 10 Mg Suppository RC DAILY PRN CONSTIPATION Calamine/Phenol 1 applic 02/08/21 20:49 02/09/21 06:34 Menthol/Lanolin/Calamine/Znox 113 Gm Tube TOPICAL 1 applic BID [facility] Administration Protocol Colchicine 0.6 mg 02/06/21 06:00 02/09/21 06:31 Colchicine 0.6 Mg Tablet PO 0.6 mg DAILY AME Administration Compound Med 2 click 02/05/21 22:00 02/09/21 13:41 Arthritis Pain Compound 60 Click Tube TOPICAL 2 click TID [facility] Administration Protocol Enoxaparin Sodium 40 mg 02/05/21 06:00 02/09/21 06:32 Enoxaparin 40 Mg/0.4 Ml Syringe SC 40 mg DAILY@0600 AME Administration Estrogens Conjugated 0.625 mg 02/05/21 08:00 02/09/21 08:54 Estrogens,Conj. 0.625 Mg Tablet PO 0.625 mg MoWeFr@0800 AME Administration Fluoxetine HCl 40 mg 02/05/21 06:00 02/09/21 06:31 Fluoxetine 20 Mg Capsule PO 40 mg DAILY AME Administration Fluticasone Propionate 2 spray 02/05/21 06:00 02/09/21 06:35 Fluticasone 0.05% 1 [place] Nasal.Sry NASAL 2 spray DAILY AME Administration Folic Acid 1 mg 02/05/21 08:00 02/09/21 08:53 Folic Acid 1 Mg Tablet PO 1 mg DAILYCM AME Administration Furosemide 20 mg 02/05/21 06:00 02/09/21 13:41 Furosemide 20 Mg Tablet PO 20 mg BIDLX AME Administration Guaifenesin 600 mg 02/07/21 08:00 02/09/21 08:55 Guaifenesin 600 Mg Tablet PO 600 mg BID@0800,1999 [facility] Administration Insulin Glargine 20 units 02/05/21 22:00 02/08/21 21:58 Insulin Glargine 100 Units/Ml Pen SC 20 u QHS AME Administration Insulin Human Lispro 10 unit 02/05/21 11:45 02/09/21 11:49 Insulin Lispro 100 Unit/Ml Insuln.Pen SC 10 units T[facility]AC [facility] Administration Isosorbide Mononitrate 60 mg 02/07/21 08:00 02/09/21 08:53 Isosorbide Mononitrate 60 Mg Tablet PO 60 mg BID@ AME Administration Lactulose 10 gm 02/07/21 08:00 02/09/21 08:55 Lactulose 20 Gm/30 Ml Udc PO 10 gm BID@ [facility] Administration Levothyroxine Sodium 75 mcg 02/05/21 06:00 02/09/21 06:32 Levothyroxine 75 Mcg Tablet PO 75 mcg DAILY@0600 [facility] Administration Metformin HCl 500 mg 02/05/21 08:00 02/09/21 08:53 Metformin Hcl 500 Mg Tablet PO 500 mg BIDCM [facility] Administration Methylcellulose 2 gm 02/05/21 06:00 02/09/21 06:33 Methylcellulose 2 Gm Bottle PO 2 gm DAILY [facility] Administration Metoprolol Succinate 25 mg 02/05/21 06:00 02/09/21 06:31 Metoprolol(Xl)Succ 25 Mg Tablet PO 25 mg DAILY AME Administration Montelukast Sodium 10 mg 02/05/21 06:00 02/09/21 06:31 Montelukast 10 Mg Tablet PO 10 mg DAILY AME Administration Nitroglycerin 0.4 mg 02/04/21 16:21 Nitroglycerin (Inpatient Use) 0.4 Mg Tab.Subl SL Q5M PRN CARDIAC/CHEST PAIN Nutritional Formula (Lactose Free) 120 ml 02/05/21 17:00 02/09/21 11:48 Glucerna Shake 120 Ml Liquid PO 120 ml 4X/DAY [facility] Administration Nystatin 1 applic 02/04/21 18:00 02/09/21 06:34 Nystatin Powder 15gm Bottle TOPICAL 1 applic BID [facility] Administration Protocol Pantoprazole Sodium 20 mg 02/05/21 06:00 02/09/21 06:32 Pantoprazole Sodium 20 Mg Tablet PO 20 mg 0600 [facility] Administration Polyethylene Glycol 17 gm 02/05/21 06:00 02/09/21 06:30 Polyethylene Glycol 3350 17 Gm Packet PO 17 gm DAILY [facility] Administration Potassium Chloride 20 meq 02/07/21 08:00 02/09/21 08:55 Potassium Chloride Oral Tablet 20 Meq PO 20 meq BIDCM AME Administration Sodium Chloride 10 - 40 ml 02/04/21 16:01 02/08/21 06:51 0.9% Saline Lock 10 Ml Syringe IV 10 ml UD PRN Administration SALINE FLUSH Spironolactone 25 mg 02/05/21 06:00 02/09/21 06:34 Spironolactone 25 Mg Tablet PO 25 mg DAILY AME Administration Tuberculin PPD 5 tu 02/12/21 10:00 Tuberculin,Purif.Prot.Deriv. 50 Tu/Ml Vial ID 02/12/21 10:01 X1 ONE Problem List (Last Reviewed 09/19/20 @ 15:[address] Long Jovel MD) Hypokalemia (Acute) Debility (Acute) Fall (Acute) Urinary tract infection due to extended-spectrum beta lactamase (ESBL) producing Escherichia coli (Acute) Hypoglycemia (Acute) Diabetes mellitus (Chronic) Coronary artery disease (Chronic) Chronic diastolic heart failure (Chronic) Hypertension (Chronic) Aortic stenosis (Chronic) Gout (Chronic) Hypothyroidism (Chronic) Gastroesophageal reflux disease (Chronic) Depression (Chronic) Right bundle branch block (RBBB) (Chronic) Hyperlipemia (Chronic) Vital Signs Temp Pulse Resp BP Pulse Ox 97.7 F L 71 18 112/49 L 97 02/09/21 14:27 02/09/21 14:27 02/09/21 14:27 02/09/21 14:27 02/09/21 14:27 Oxygen Delivery Method Room Air Weight: 87.09 kg Body Mass Index (BMI) 32.8 Sodium 133 mmol/L (136-145) L 02/06/21 05:47 Potassium 4.2 mmol/L (3.5-5.1) 02/06/21 05:47 Chloride 101 mmol/L (98-107) 02/06/21 05:47 Carbon Dioxide 24.0 mmol/L (21.0-32.0) 02/06/21 05:47 Anion Gap 8 (5-15) 02/06/21 05:47 BUN 29 mg/dL (7-18) H 02/06/21 05:47 Creatinine 1.00 mg/dL (0.55-1.02) 02/06/21 05:47 Est GFR (MDRD) Af Amer 69 mL/min (>60) 02/06/21 05:47 Est GFR (MDRD) Non-Af 57 mL/min (>60) L 02/06/21 05:47 BUN/Creatinine Ratio 29.0 RATIO (10-20) H 02/06/21 05:47 Glucose 341 mg/dL (74-106) H 02/06/21 05:47 Assessment/Plan: Psychotropic Medications: Unnecessary Medications: Bowel Regimen: - Provider Comments Provider responsibility: Provider responsible to enter orders to implement recommendations Provider Comments to Recommendations by Pharmacy: Agree
[2021-02-05] MEDS: Insulin Lispro 100 UNIT/ML INSULN.PEN 10 UNIT SC ×2 (11:36→17:52)
[2021-02-05 14:14] VITALS: BP 142/64; PULSE 79; RESP 18; TEMP 36.9; O2SAT 98
--- NOTE | 2021-02-05 16:58 | CHAPLAIN ---
Type of Pastoral Visit _x__ Initial Visit ___ Follow-up Visit ___ On-call Visit ___ General Patient Visit ___ Spiritual Assessment ___ Family Conference ___ Bereavement ___ Rapid Response ___ Code Blue ___ Other (describe below) Pastoral Care Referral From ___ Patient _x__ Family ___ Nurse ___ Physician ___ Architecture Intern ___ Form Maker Plaster ___ Other (describe below) Sacrament/Intervention _x__ Active listening ___ Anointing ___ Latter-Day ___ Bereavement ___ Communion ___ Sirena exploration ___ _x__ Life review ___ Prayer ___ Reconciliation ___ Sacrament of Sick _x__ Supportive presence ___ Wedding ___ Other (describe below) Pastoral Comments a supportive and casual visit with patient
[2021-02-05 17:00] LABS: Bedside Glucose 301 mg/dL (70-110)
[2021-02-05] MEDS: Glucerna Shake 120 ML LIQUID PO ×2 (17:56→23:18)
--- NOTE | 2021-02-05 18:55 | RAD_ITS ---
STUDY: X-RAY - RIGHT SHOULDER REASON FOR EXAM: Female, 80 years old. Right shoulder pain radiating to the fingertips. TECHNIQUE: 2 view(s) of the shoulder. COMPARISON: None. FINDINGS: There is cephalad migration of the humeral head consistent with rotator cuff pathology. There is moderate degenerative changes of the glenohumeral joint. There is degenerative arthrosis of the acromioclavicular joint without inferior osseous spur formation. There is a curved undersurface of the acromion consistent with a Type II morphology. No visualized fracture or dislocation. There is demineralization of the humerus and visualized osseous structures. The soft tissue structures are unremarkable. Normal visualized pulmonary apex. RAD/Shoulder min 2 Views IMPRESSION: Degenerative changes right shoulder. There is narrowing of the acromiohumeral space suggesting rotator cuff pathology. Electronically Signed: Camden Hong DO at 21:58 EDT Tel [phone], Service support ,
[2021-02-05 19:00] VITALS: PULSE 88; RESP 16; O2SAT 98
[2021-02-05 21:26] LABS: Bedside Glucose 335 mg/dL (70-110)
--- NOTE | 2021-02-05 22:30 | NURSING ---
Discussed code status with patient, she is oriented x3. Asked patient if she wanted to discuss with her family, she declined saying she knows what she wants. She said she doesn't want anything done, wants to be comfortable. She wants to be DNRCC, paperwork signed.
[2021-02-05 23:00] VITALS: PULSE 84; RESP 18; O2SAT 93
[2021-02-05] MEDS: Arthritis Pain Compound 60 CLICK TUBE TOPICAL (23:18)
[2021-02-05] MEDS: Atorvastatin Calcium 10 MG Tablet PO (23:23)
[2021-02-06 05:00] VITALS: BP 111/56; PULSE 75; RESP 14; TEMP 35.7; O2SAT 96
[2021-02-06 06:26] LABS: Bedside Glucose 331 mg/dL (70-110)
[2021-02-06] MEDS: Arthritis Pain Compound 60 CLICK TUBE TOPICAL ×3 (06:34→22:35)
[2021-02-06] MEDS: Colchicine 0.6 MG TABLET PO (06:35)
[2021-02-06] MEDS: Fluticasone 0.05% 1 SPRAY NASAL.SRY 2 SPRAY NASAL (06:36)
[2021-02-06] MEDS: Glucerna Shake 120 ML LIQUID PO ×4 (06:37→22:39)
[2021-02-06] MEDS: Nystatin Powder 15gm Bottle 1 APPLIC TOPICAL ×2 (06:37→11:38)
[2021-02-06 06:38] LABS: Anion Gap 8 (5-15); BUN 29 mg/dL (7-18); Calcium,Total 8.8 mg/dL (8.5-10.1); Chloride 101 mmol/L (98-107); EST Glomerular Filtration Rate 57 mL/min (>60); Est Glom Filt Rate - Afr Amer 69 mL/min (>60); Estimated Creatinine Clearance 39.39 ml/min; Glucose 341 mg/dL (74-106); Potassium 4.2 mmol/L (3.5-5.1); Sodium Level 133 mmol/L (136-145)
[2021-02-06] MEDS: Levothyroxine 75 MCG Tablet PO (06:48)
[2021-02-06] MEDS: FLUoxetine 20 MG Capsule 40 MG PO (06:48)
[2021-02-06] MEDS: Pantoprazole Sodium 20 MG Tablet PO (06:48)
[2021-02-06 06:49] VITALS: PULSE 75
[2021-02-06] MEDS: Metoprolol(XL)Succ 25 MG Tablet PO (06:49)
[2021-02-06] MEDS: Montelukast 10 MG Tablet PO (06:49)
[2021-02-06] MEDS: Potassium Chloride Oral Tablet 20 MEQ PO ×2 (06:50→17:58)
[2021-02-06] MEDS: Enoxaparin 40 MG/0.4 ML Syringe SC (06:50)
[2021-02-06] MEDS: guaiFENesin 600 MG Tablet PO ×2 (06:50→17:59)
[2021-02-06] MEDS: Spironolactone 25 MG Tablet PO (06:50)
[2021-02-06] MEDS: Polyethylene Glycol 3350 17 GM PACKET PO (06:51)
[2021-02-06] MEDS: Furosemide 20 MG Tablet PO ×2 (07:02→14:55)
[2021-02-06] MEDS: Isosorbide Mononitrate 60 MG Tablet PO ×2 (07:02→17:58)
[2021-02-06] MEDS: Lactulose 20 GM/30 ML UDC 10 GM PO ×2 (07:02→17:57)
[2021-02-06] MEDS: Methylcellulose 2 GM Bottle PO (07:03)
[2021-02-06 07:44] VITALS: PULSE 80; RESP 16; O2SAT 93
[2021-02-06] MEDS: Albuterol 2.5 MG/3 ML VIAL.NEB. INHALATION ×2 (07:44→19:40)
[2021-02-06] MEDS: Insulin Lispro 100 UNIT/ML INSULN.PEN 10 UNIT SC ×3 (08:13→17:55)
[2021-02-06] MEDS: Allopurinol 300 MG Tablet PO (08:14)
[2021-02-06] MEDS: Folic Acid 1 MG Tablet PO (08:14)
[2021-02-06] MEDS: metFORMIN HCl 500 MG Tablet PO ×2 (08:14→17:58)
[2021-02-06] MEDS: Aspirin 81 MG TAB.CHEW PO (08:14)
[2021-02-06 11:01] LABS: Bedside Glucose 231 mg/dL (70-110)
--- NOTE | 2021-02-06 11:10 | NURSING ---
Up in chair. yelling out and wanting to go back to bed. Therapy in room and assisted back to bed. Transfers with 2 assist. Reports pain to butt was #10/10. Agitated. Seems to improve after lying down. Positioned with pillow to Lt side while eating.
--- NOTE | 2021-02-06 13:53 | NURSING ---
wound photo: ryan
[2021-02-06 14:02] VITALS: BP 112/47; PULSE 78; RESP 18; TEMP 36.1; O2SAT 97
[2021-02-06 16:26] LABS: Bedside Glucose 140 mg/dL (70-110)
[2021-02-06] MEDS: 0.9% Saline Lock 10 ML Syringe IV (18:07)
--- NOTE | 2021-02-06 18:49 | NURSING ---
Talked with Pt's Daughter today and updated her on pt's med list. Daughter was upset that she was on colchicine daily. Daughter previously asked about her gout medicine and Dr. Terry Changed the colchicine to daily d/t pt's daughter request. Updated Dr. Terry on Daughters concerns.
[2021-02-06 19:40] VITALS: PULSE 78; RESP 16; O2SAT 96
[2021-02-06 21:55] LABS: Bedside Glucose 152 mg/dL (70-110)
[2021-02-06] MEDS: Atorvastatin Calcium 10 MG Tablet PO (22:35)
[2021-02-07 05:00] VITALS: BP 122/53; PULSE 86; RESP 18; TEMP 35.8; O2SAT 94
[2021-02-07 06:21] LABS: Bedside Glucose 151 mg/dL (70-110)
[2021-02-07] MEDS: Glucerna Shake 120 ML LIQUID PO ×4 (06:43→20:57)
[2021-02-07] MEDS: Polyethylene Glycol 3350 17 GM PACKET PO (06:43)
[2021-02-07] MEDS: Methylcellulose 2 GM Bottle PO (06:44)
[2021-02-07] MEDS: Enoxaparin 40 MG/0.4 ML Syringe SC (06:45)
[2021-02-07] MEDS: Spironolactone 25 MG Tablet PO (06:46)
[2021-02-07] MEDS: Colchicine 0.6 MG TABLET PO (06:47)
[2021-02-07] MEDS: Fluticasone 0.05% 1 SPRAY NASAL.SRY 2 SPRAY NASAL (06:47)
[2021-02-07] MEDS: Arthritis Pain Compound 60 CLICK TUBE TOPICAL ×3 (06:47→20:57)
[2021-02-07] MEDS: Nystatin Powder 15gm Bottle 1 APPLIC TOPICAL ×2 (06:48→17:36)
[2021-02-07] MEDS: Furosemide 20 MG Tablet PO ×2 (06:48→12:46)
[2021-02-07 06:49] VITALS: PULSE 86
[2021-02-07] MEDS: Levothyroxine 75 MCG Tablet PO (06:49)
[2021-02-07] MEDS: Montelukast 10 MG Tablet PO (06:49)
[2021-02-07] MEDS: Pantoprazole Sodium 20 MG Tablet PO (06:49)
[2021-02-07] MEDS: Metoprolol(XL)Succ 25 MG Tablet PO (06:49)
[2021-02-07] MEDS: FLUoxetine 20 MG Capsule 40 MG PO (06:49)
[2021-02-07] MEDS: Albuterol 2.5 MG/3 ML VIAL.NEB. INHALATION ×3 (07:09→19:05)
[2021-02-07 07:10] VITALS: PULSE 66; RESP 20; O2SAT 97
[2021-02-07] MEDS: Folic Acid 1 MG Tablet PO (08:14)
[2021-02-07] MEDS: Insulin Lispro 100 UNIT/ML INSULN.PEN 10 UNIT SC ×2 (08:14→17:31)
[2021-02-07] MEDS: Lactulose 20 GM/30 ML UDC 10 GM PO ×2 (08:14→20:57)
[2021-02-07] MEDS: Isosorbide Mononitrate 60 MG Tablet PO ×2 (08:14→20:50)
[2021-02-07] MEDS: metFORMIN HCl 500 MG Tablet PO ×2 (08:14→17:33)
[2021-02-07] MEDS: guaiFENesin 600 MG Tablet PO ×2 (08:14→20:50)
[2021-02-07] MEDS: Aspirin 81 MG TAB.CHEW PO (08:14)
[2021-02-07] MEDS: Estrogens,Conj. 0.625 MG Tablet PO (08:14)
[2021-02-07] MEDS: Allopurinol 300 MG Tablet PO (08:14)
[2021-02-07] MEDS: Potassium Chloride Oral Tablet 20 MEQ PO ×2 (08:14→17:33)
[2021-02-07 10:35] LABS: Bedside Glucose 112 mg/dL (70-110)
--- NOTE | 2021-02-07 12:18 | NURSING ---
R' DAUGHTER REQUESTED HEEL BOOTS. APPLIED AT THIS TIME. HEELS INTACT.
[2021-02-07 12:21] LABS: Bedside Glucose 109 mg/dL (70-110)
--- NOTE | 2021-02-07 13:06 | CASEMGMT ---
Social Work IDT met with patient and dtr for care plan meeting. Discussed patient's progress in therapy and nursing. Pt remains painful and unable to ambulate at this time. However, has good motivation to get home at DC. Explained Medicare benefit and encouraged to contact secondary insurance to ensure copay coverage. The pt and dtr confirm the goal is for pt to DC home alone. Dtr assured pt will have family support at home. SW to continue to follow to assist with DC plans. MERI SummersW
[2021-02-07 13:32] VITALS: PULSE 68; RESP 20
--- NOTE | 2021-02-07 13:38 | NURSING ---
Addendum entered by Brenda Vincent 02/07/21 16:35: NOTIFIED DR CURIEL OF EVENING BLOOD SUGAR. Original Note: DR. CURIEL AWARE THAT NOVOLG WAS HELD FOR LUNCH. WANTS UPDATED AT DINNER OF BLOOD SUGAR.
[2021-02-07 13:56] VITALS: BP 120/59; PULSE 75; RESP 17; TEMP 36.3; O2SAT 97
[2021-02-07] MEDS: 0.9% Saline Lock 10 ML Syringe IV (14:39)
[2021-02-07 16:35] LABS: Bedside Glucose 172 mg/dL (70-110)
[2021-02-07 19:05] VITALS: PULSE 60; RESP 18
[2021-02-07] MEDS: Atorvastatin Calcium 10 MG Tablet PO (20:51)
[2021-02-07 21:46] LABS: Bedside Glucose 199 mg/dL (70-110)
[2021-02-08] VITALS (7 sets, daily range): BP systolic 113–130; BP diastolic 47–57; PULSE 64–74; RESP 14–18; TEMP 36.4–36.5; O2SAT 96–99
[2021-02-08 06:36] LABS: Bedside Glucose 113 mg/dL (70-110)
[2021-02-08] MEDS: Levothyroxine 75 MCG Tablet PO (06:51)
[2021-02-08] MEDS: Metoprolol(XL)Succ 25 MG Tablet PO (06:51)
[2021-02-08] MEDS: Methylcellulose 2 GM Bottle PO (06:51)
[2021-02-08] MEDS: 0.9% Saline Lock 10 ML Syringe IV (06:51)
[2021-02-08] MEDS: Polyethylene Glycol 3350 17 GM PACKET PO (06:51)
[2021-02-08] MEDS: Pantoprazole Sodium 20 MG Tablet PO (06:51)
[2021-02-08] MEDS: Glucerna Shake 120 ML LIQUID PO ×4 (06:51→21:55)
[2021-02-08] MEDS: Colchicine 0.6 MG TABLET PO (06:52)
[2021-02-08] MEDS: Montelukast 10 MG Tablet PO (06:52)
[2021-02-08] MEDS: FLUoxetine 20 MG Capsule 40 MG PO (06:52)
[2021-02-08] MEDS: Spironolactone 25 MG Tablet PO (06:52)
[2021-02-08] MEDS: Enoxaparin 40 MG/0.4 ML Syringe SC (06:53)
[2021-02-08] MEDS: Arthritis Pain Compound 60 CLICK TUBE TOPICAL ×3 (06:54→21:57)
[2021-02-08] MEDS: Furosemide 20 MG Tablet PO ×2 (06:54→15:03)
[2021-02-08] MEDS: Nystatin Powder 15gm Bottle 1 APPLIC TOPICAL ×2 (06:55→18:13)
[2021-02-08] MEDS: Fluticasone 0.05% 1 SPRAY NASAL.SRY 2 SPRAY NASAL (06:56)
[2021-02-08] MEDS: Insulin Lispro 100 UNIT/ML INSULN.PEN 10 UNIT SC ×3 (08:03→18:36)
[2021-02-08] MEDS: Lactulose 20 GM/30 ML UDC 10 GM PO ×2 (08:05→21:55)
[2021-02-08] MEDS: Allopurinol 300 MG Tablet PO (08:06)
[2021-02-08] MEDS: Potassium Chloride Oral Tablet 20 MEQ PO ×2 (08:06→18:13)
[2021-02-08] MEDS: Folic Acid 1 MG Tablet PO (08:06)
[2021-02-08] MEDS: guaiFENesin 600 MG Tablet PO ×2 (08:06→21:56)
[2021-02-08] MEDS: Aspirin 81 MG TAB.CHEW PO (08:06)
[2021-02-08] MEDS: Isosorbide Mononitrate 60 MG Tablet PO ×2 (08:06→21:56)
[2021-02-08] MEDS: metFORMIN HCl 500 MG Tablet PO ×2 (08:06→18:14)
[2021-02-08 11:06] LABS: Bedside Glucose 97 mg/dL (70-110)
--- NOTE | 2021-02-08 14:26 | MDS.RN ---
Completed pain interview for erich 02/11/21
[2021-02-08 16:30] LABS: Bedside Glucose 55 mg/dL (70-110)
[2021-02-08 18:20] LABS: Bedside Glucose 116 mg/dL (70-110)
[2021-02-08] MEDS: Albuterol 2.5 MG/3 ML VIAL.NEB. INHALATION (20:15)
[2021-02-08 21:45] LABS: Bedside Glucose 126 mg/dL (70-110)
[2021-02-08] MEDS: Atorvastatin Calcium 10 MG Tablet PO (21:57)
[2021-02-08] MEDS: Menthol/Lanolin/Calamine/Znox 113 GM Tube 1 APPLIC TOPICAL (21:57)
[2021-02-09 05:00] VITALS: BP 137/52; PULSE 70; RESP 16; TEMP 35.9; O2SAT 92
[2021-02-09] MEDS: Polyethylene Glycol 3350 17 GM PACKET PO (06:30)
[2021-02-09 06:31] VITALS: PULSE 70
[2021-02-09] MEDS: FLUoxetine 20 MG Capsule 40 MG PO (06:31)
[2021-02-09] MEDS: Metoprolol(XL)Succ 25 MG Tablet PO (06:31)
[2021-02-09] MEDS: Montelukast 10 MG Tablet PO (06:31)
[2021-02-09] MEDS: Colchicine 0.6 MG TABLET PO (06:31)
[2021-02-09] MEDS: Levothyroxine 75 MCG Tablet PO (06:32)
[2021-02-09] MEDS: Furosemide 20 MG Tablet PO ×2 (06:32→13:41)
[2021-02-09] MEDS: Pantoprazole Sodium 20 MG Tablet PO (06:32)
[2021-02-09] MEDS: Enoxaparin 40 MG/0.4 ML Syringe SC (06:32)
[2021-02-09] MEDS: Methylcellulose 2 GM Bottle PO (06:33)
[2021-02-09] MEDS: Spironolactone 25 MG Tablet PO (06:34)
[2021-02-09] MEDS: Arthritis Pain Compound 60 CLICK TUBE TOPICAL ×3 (06:34→21:20)
[2021-02-09] MEDS: Nystatin Powder 15gm Bottle 1 APPLIC TOPICAL ×2 (06:34→17:44)
[2021-02-09] MEDS: Menthol/Lanolin/Calamine/Znox 113 GM Tube 1 APPLIC TOPICAL ×2 (06:34→17:44)
[2021-02-09] MEDS: Fluticasone 0.05% 1 SPRAY NASAL.SRY 2 SPRAY NASAL (06:35)
[2021-02-09] MEDS: Glucerna Shake 120 ML LIQUID PO ×4 (06:37→21:21)
[2021-02-09 07:00] LABS: Bedside Glucose 148 mg/dL (70-110)
[2021-02-09 07:58] VITALS: PULSE 73; RESP 20; O2SAT 95
[2021-02-09] MEDS: Albuterol 2.5 MG/3 ML VIAL.NEB. INHALATION ×3 (07:58→20:36)
[2021-02-09] MEDS: metFORMIN HCl 500 MG Tablet PO ×2 (08:53→17:39)
[2021-02-09] MEDS: Isosorbide Mononitrate 60 MG Tablet PO (08:53)
[2021-02-09] MEDS: Aspirin 81 MG TAB.CHEW PO (08:53)
[2021-02-09] MEDS: Folic Acid 1 MG Tablet PO (08:53)
[2021-02-09] MEDS: Insulin Lispro 100 UNIT/ML INSULN.PEN 10 UNIT SC ×3 (08:54→17:40)
[2021-02-09] MEDS: Estrogens,Conj. 0.625 MG Tablet PO (08:54)
[2021-02-09] MEDS: Lactulose 20 GM/30 ML UDC 10 GM PO ×2 (08:55→21:26)
[2021-02-09] MEDS: Potassium Chloride Oral Tablet 20 MEQ PO ×2 (08:55→17:39)
[2021-02-09] MEDS: guaiFENesin 600 MG Tablet PO ×2 (08:55→21:20)
[2021-02-09] MEDS: Allopurinol 300 MG Tablet PO (08:55)
[2021-02-09 11:01] LABS: Bedside Glucose 144 mg/dL (70-110)
--- NOTE | 2021-02-09 11:54 | CASEMGMT ---
Social Work BIMS and PHQ-9 completed for MDS assessment. Alissa Le, REAL ESTATE EXECUTIVE ASSISTANT REQUIREMENTS ENGINEER
[2021-02-09 13:20] VITALS: PULSE 71; RESP 18
[2021-02-09 14:27] VITALS: BP 112/49; PULSE 71; RESP 18; TEMP 36.5; O2SAT 97
[2021-02-09 16:55] LABS: Bedside Glucose 112 mg/dL (70-110)
[2021-02-09 20:35] VITALS: PULSE 70; RESP 18
[2021-02-09] MEDS: Atorvastatin Calcium 10 MG Tablet PO (21:20)
[2021-02-09 21:41] LABS: Bedside Glucose 59 mg/dL (70-110)
[2021-02-09 21:41] LABS: Bedside Glucose 50 mg/dL (70-110)
[2021-02-09 22:31] LABS: Bedside Glucose 77 mg/dL (70-110)
[2021-02-10 03:16] LABS: Bedside Glucose 154 mg/dL (70-110)
[2021-02-10 06:41] LABS: Bedside Glucose 138 mg/dL (70-110)
[2021-02-10 07:05] VITALS: PULSE 73; RESP 17
[2021-02-10] MEDS: Albuterol 2.5 MG/3 ML VIAL.NEB. INHALATION ×3 (07:05→20:10)
[2021-02-10] MEDS: Enoxaparin 40 MG/0.4 ML Syringe SC (09:36)
[2021-02-10] MEDS: Spironolactone 25 MG Tablet PO (09:37)
[2021-02-10] MEDS: Polyethylene Glycol 3350 17 GM PACKET PO (09:37)
[2021-02-10] MEDS: Arthritis Pain Compound 60 CLICK TUBE TOPICAL ×3 (09:41→20:49)
[2021-02-10] MEDS: Colchicine 0.6 MG TABLET PO (09:45)
[2021-02-10] MEDS: Fluticasone 0.05% 1 SPRAY NASAL.SRY 2 SPRAY NASAL (09:45)
[2021-02-10] MEDS: Methylcellulose 2 GM Bottle PO (09:45)
[2021-02-10] MEDS: Pantoprazole Sodium 20 MG Tablet PO (09:46)
[2021-02-10] MEDS: FLUoxetine 20 MG Capsule 40 MG PO (09:46)
[2021-02-10] MEDS: Glucerna Shake 120 ML LIQUID PO ×4 (09:46→20:48)
[2021-02-10] MEDS: Furosemide 20 MG Tablet PO ×2 (09:46→13:58)
[2021-02-10] MEDS: Montelukast 10 MG Tablet PO (09:46)
[2021-02-10 09:47] VITALS: BP 118/60; PULSE 79
[2021-02-10] MEDS: Aspirin 81 MG TAB.CHEW PO (09:47)
[2021-02-10] MEDS: Metoprolol(XL)Succ 25 MG Tablet PO (09:47)
[2021-02-10] MEDS: Lactulose 20 GM/30 ML UDC 10 GM PO ×2 (09:47→20:48)
[2021-02-10] MEDS: Levothyroxine 75 MCG Tablet PO (09:47)
[2021-02-10] MEDS: Potassium Chloride Oral Tablet 20 MEQ PO ×2 (09:48→17:54)
[2021-02-10] MEDS: metFORMIN HCl 500 MG Tablet PO ×2 (09:48→17:54)
[2021-02-10] MEDS: Isosorbide Mononitrate 60 MG Tablet PO ×2 (09:48→20:44)
[2021-02-10] MEDS: Folic Acid 1 MG Tablet PO (09:48)
[2021-02-10] MEDS: Allopurinol 300 MG Tablet PO (09:48)
[2021-02-10] MEDS: guaiFENesin 600 MG Tablet PO ×2 (09:48→20:44)
[2021-02-10] MEDS: Nystatin Powder 15gm Bottle 1 APPLIC TOPICAL ×2 (09:49→17:56)
[2021-02-10] MEDS: Menthol/Lanolin/Calamine/Znox 113 GM Tube 1 APPLIC TOPICAL ×2 (09:49→17:58)
[2021-02-10] MEDS: Insulin Lispro 100 UNIT/ML INSULN.PEN 10 UNIT SC ×3 (09:53→17:54)
[2021-02-10 11:16] LABS: Bedside Glucose 234 mg/dL (70-110)
[2021-02-10 13:08] VITALS: PULSE 85; RESP 17
[2021-02-10 16:18] VITALS: BP 122/53; PULSE 72; RESP 16; TEMP 36.8; O2SAT 97
[2021-02-10 16:20] VITALS: PULSE 72; RESP 16; O2SAT 97
[2021-02-10 17:00] LABS: Bedside Glucose 139 mg/dL (70-110)
[2021-02-10 20:05] VITALS: PULSE 70; RESP 18
[2021-02-10] MEDS: Atorvastatin Calcium 10 MG Tablet PO (20:44)
[2021-02-10 22:16] LABS: Bedside Glucose 106 mg/dL (70-110)
[2021-02-11] VITALS (7 sets, daily range): BP systolic 96–114; BP diastolic 43–55; PULSE 70–75; RESP 16–18; TEMP 36.7–36.8; O2SAT 93–97
[2021-02-11] MEDS: 0.9% Saline Lock 10 ML Syringe IV (05:36)
[2021-02-11] MEDS: Arthritis Pain Compound 60 CLICK TUBE TOPICAL ×3 (05:38→20:47)
[2021-02-11] MEDS: Metoprolol(XL)Succ 25 MG Tablet PO (05:39)
[2021-02-11] MEDS: Polyethylene Glycol 3350 17 GM PACKET PO (05:39)
[2021-02-11] MEDS: Methylcellulose 2 GM Bottle PO (05:39)
[2021-02-11] MEDS: Montelukast 10 MG Tablet PO (05:40)
[2021-02-11] MEDS: Pantoprazole Sodium 20 MG Tablet PO (05:40)
[2021-02-11] MEDS: Enoxaparin 40 MG/0.4 ML Syringe SC (05:40)
[2021-02-11] MEDS: Furosemide 20 MG Tablet PO ×2 (05:40→13:17)
[2021-02-11] MEDS: Spironolactone 25 MG Tablet PO (05:40)
[2021-02-11] MEDS: FLUoxetine 20 MG Capsule 40 MG PO (05:40)
[2021-02-11] MEDS: Colchicine 0.6 MG TABLET PO (05:40)
[2021-02-11] MEDS: Levothyroxine 75 MCG Tablet PO (05:40)
[2021-02-11] MEDS: Fluticasone 0.05% 1 SPRAY NASAL.SRY 2 SPRAY NASAL (05:42)
[2021-02-11] MEDS: Nystatin Powder 15gm Bottle 1 APPLIC TOPICAL ×2 (05:43→18:01)
[2021-02-11] MEDS: Glucerna Shake 120 ML LIQUID PO ×4 (05:53→20:46)
[2021-02-11] MEDS: Menthol/Lanolin/Calamine/Znox 113 GM Tube 1 APPLIC TOPICAL ×2 (05:58→18:00)
[2021-02-11 06:46] LABS: Bedside Glucose 146 mg/dL (70-110)
[2021-02-11] MEDS: Albuterol 2.5 MG/3 ML VIAL.NEB. INHALATION ×3 (07:35→18:50)
[2021-02-11] MEDS: Folic Acid 1 MG Tablet PO (08:31)
[2021-02-11] MEDS: Potassium Chloride Oral Tablet 20 MEQ PO ×2 (08:31→17:55)
[2021-02-11] MEDS: metFORMIN HCl 500 MG Tablet PO ×2 (08:31→17:55)
[2021-02-11] MEDS: guaiFENesin 600 MG Tablet PO ×2 (08:31→20:48)
[2021-02-11] MEDS: Isosorbide Mononitrate 60 MG Tablet PO ×2 (08:31→20:46)
[2021-02-11] MEDS: Allopurinol 300 MG Tablet PO (08:31)
[2021-02-11] MEDS: Aspirin 81 MG TAB.CHEW PO (08:31)
[2021-02-11] MEDS: Insulin Lispro 100 UNIT/ML INSULN.PEN 10 UNIT SC ×3 (08:32→17:55)
[2021-02-11] MEDS: Lactulose 20 GM/30 ML UDC 10 GM PO ×2 (08:33→20:45)
[2021-02-11 11:16] LABS: Bedside Glucose 115 mg/dL (70-110)
[2021-02-11 16:40] LABS: Bedside Glucose 53 mg/dL (70-110)
[2021-02-11 16:50] LABS: Bedside Glucose 60 mg/dL (70-110)
[2021-02-11 17:10] LABS: Bedside Glucose 70 mg/dL (70-110)
[2021-02-11] MEDS: Atorvastatin Calcium 10 MG Tablet PO (20:48)
[2021-02-11 21:20] LABS: Bedside Glucose 122 mg/dL (70-110)
[2021-02-12] VITALS (7 sets, daily range): BP systolic 109–126; BP diastolic 43–68; PULSE 67–78; RESP 18–20; TEMP 35.8–36.4; O2SAT 95–97
[2021-02-12 05:39] LABS: Absolute Neutrophil Count 4.8 X10^3/uL (2.0-7.7); Basophil# 0.16 X10^3/uL; Basophil% 2.1 % (0-1); Eosinophil# 0.63 X10^3/uL; Eosinophils% 8.2 % (0-5); Hematocrit 37.5 % (37-47); Hemoglobin 11.2 g/dL (12.0-15.0); Lymphocyte % 15.7 % (19-41); Mean Corp Hgb Conc 29.9 g/dL (32-36); Mean Corpuscular Hgb 25.2 pg (27.0-32.0); Mean Corpuscular Volume 84.5 fL (81-99); Mean Platelet Vol. 10.9 fl (6.2-12.0); Monocyte# 0.84 X10^3/uL; NRBC Flagged by Analyzer 0 % (0-5); Neutrophil # 4.79 X10^3/uL (2.7-7.7); Neutrophil % 62.5 % (47-70); Platelet Count 314 K/mm3 (150-450); RBC Distribution Width CV 18.9 % (11.6-14.6); RBC Distribution Width SD 58.2 fl (35.1-43.9); Red Blood Count 4.44 M/mm3 (4.2-5.4); White Blood Count 7.7 K/mm3 (4.4-11.0)
[2021-02-12 05:58] LABS: Anion Gap 5 (5-15); BUN 28 mg/dL (7-18); BUN/Creat Ratio 26.2 RATIO (10-20); Calcium,Total 8.7 mg/dL (8.5-10.1); Chloride 104 mmol/L (98-107); Creatinine, Serum 1.07 mg/dL (0.55-1.02); EST Glomerular Filtration Rate 53 mL/min (>60); Est Glom Filt Rate - Afr Amer 64 mL/min (>60); Estimated Creatinine Clearance 36.81 ml/min; Glucose 146 mg/dL (74-106); Potassium 4.4 mmol/L (3.5-5.1); Sodium Level 137 mmol/L (136-145)
[2021-02-12] MEDS: Polyethylene Glycol 3350 17 GM PACKET PO (06:12)
[2021-02-12] MEDS: Methylcellulose 2 GM Bottle PO (06:13)
[2021-02-12] MEDS: Glucerna Shake 120 ML LIQUID PO ×4 (06:13→22:03)
[2021-02-12] MEDS: Enoxaparin 40 MG/0.4 ML Syringe SC (06:13)
[2021-02-12] MEDS: Furosemide 20 MG Tablet PO ×2 (06:14→14:17)
[2021-02-12] MEDS: Metoprolol(XL)Succ 25 MG Tablet PO (06:14)
[2021-02-12] MEDS: Montelukast 10 MG Tablet PO (06:14)
[2021-02-12] MEDS: Levothyroxine 75 MCG Tablet PO (06:14)
[2021-02-12] MEDS: Pantoprazole Sodium 20 MG Tablet PO (06:14)
[2021-02-12] MEDS: FLUoxetine 20 MG Capsule 40 MG PO (06:14)
[2021-02-12] MEDS: Arthritis Pain Compound 60 CLICK TUBE TOPICAL ×3 (06:15→22:02)
[2021-02-12] MEDS: Colchicine 0.6 MG TABLET PO (06:15)
[2021-02-12] MEDS: Spironolactone 25 MG Tablet PO (06:15)
[2021-02-12] MEDS: Fluticasone 0.05% 1 SPRAY NASAL.SRY 2 SPRAY NASAL (06:15)
[2021-02-12] MEDS: Nystatin Powder 15gm Bottle 1 APPLIC TOPICAL ×2 (06:16→18:51)
[2021-02-12] MEDS: Menthol/Lanolin/Calamine/Znox 113 GM Tube 1 APPLIC TOPICAL (06:16)
[2021-02-12 06:21] LABS: Bedside Glucose 168 mg/dL (70-110)
[2021-02-12] MEDS: Albuterol 2.5 MG/3 ML VIAL.NEB. INHALATION ×3 (06:45→20:35)
[2021-02-12] MEDS: Insulin Lispro 100 UNIT/ML INSULN.PEN SC ×3 (08:41→17:29)
[2021-02-12] MEDS: Isosorbide Mononitrate 60 MG Tablet PO ×2 (08:42→22:01)
[2021-02-12] MEDS: Aspirin 81 MG TAB.CHEW PO (08:42)
[2021-02-12] MEDS: Potassium Chloride Oral Tablet 20 MEQ PO ×2 (08:42→17:32)
[2021-02-12] MEDS: metFORMIN HCl 500 MG Tablet PO ×2 (08:42→17:31)
[2021-02-12] MEDS: Estrogens,Conj. 0.625 MG Tablet PO (08:42)
[2021-02-12] MEDS: Allopurinol 300 MG Tablet PO (08:42)
[2021-02-12] MEDS: Folic Acid 1 MG Tablet PO (08:42)
[2021-02-12] MEDS: guaiFENesin 600 MG Tablet PO ×2 (08:42→22:01)
[2021-02-12] MEDS: Lactulose 20 GM/30 ML UDC 10 GM PO ×2 (08:44→22:00)
[2021-02-12 10:50] LABS: Bedside Glucose 160 mg/dL (70-110)
[2021-02-12] MEDS: Tuberculin,Purif.prot.deriv. 50 TU/ML Vial 5 ML ID (11:57)
[2021-02-12] MEDS: 0.9% Saline Lock 10 ML Syringe IV (14:17)
--- NOTE | 2021-02-12 14:42 | NURSING ---
wound photo: [place] cleft/bilateral buttocks
[2021-02-12 16:25] LABS: Bedside Glucose 127 mg/dL (70-110)
[2021-02-12 22:00] LABS: Bedside Glucose 115 mg/dL (70-110)
[2021-02-12] MEDS: Atorvastatin Calcium 10 MG Tablet PO (22:04)
[2021-02-13] VITALS (9 sets, daily range): BP systolic 121–128; BP diastolic 51–58; PULSE 65–73; RESP 16–18; TEMP 36.4–36.6; O2SAT 93–98
[2021-02-13] MEDS: 0.9% Saline Lock 10 ML Syringe IV (05:41)
[2021-02-13] MEDS: Metoprolol(XL)Succ 25 MG Tablet PO (05:43)
[2021-02-13] MEDS: Furosemide 20 MG Tablet PO ×2 (05:43→13:40)
[2021-02-13] MEDS: Colchicine 0.6 MG TABLET PO (05:44)
[2021-02-13] MEDS: FLUoxetine 20 MG Capsule 40 MG PO (05:44)
[2021-02-13] MEDS: Pantoprazole Sodium 20 MG Tablet PO (05:45)
[2021-02-13] MEDS: Methylcellulose 2 GM Bottle PO (05:45)
[2021-02-13] MEDS: Arthritis Pain Compound 60 CLICK TUBE TOPICAL ×3 (05:45→21:15)
[2021-02-13] MEDS: Menthol/Lanolin/Calamine/Znox 113 GM Tube 1 APPLIC TOPICAL ×2 (05:45→17:46)
[2021-02-13] MEDS: Levothyroxine 75 MCG Tablet PO (05:45)
[2021-02-13] MEDS: Montelukast 10 MG Tablet PO (05:45)
[2021-02-13] MEDS: Spironolactone 25 MG Tablet PO (05:45)
[2021-02-13] MEDS: Fluticasone 0.05% 1 SPRAY NASAL.SRY 2 SPRAY NASAL (05:46)
[2021-02-13] MEDS: Polyethylene Glycol 3350 17 GM PACKET PO (05:46)
[2021-02-13] MEDS: Enoxaparin 40 MG/0.4 ML Syringe SC (05:47)
[2021-02-13] MEDS: Nystatin Powder 15gm Bottle 1 APPLIC TOPICAL ×2 (05:48→17:46)
[2021-02-13] MEDS: Glucerna Shake 120 ML LIQUID PO ×4 (05:51→21:11)
[2021-02-13 06:50] LABS: Bedside Glucose 152 mg/dL (70-110)
[2021-02-13] MEDS: Albuterol 2.5 MG/3 ML VIAL.NEB. INHALATION ×4 (06:52→19:10)
[2021-02-13] MEDS: Lactulose 20 GM/30 ML UDC 10 GM PO ×2 (07:53→21:13)
[2021-02-13] MEDS: metFORMIN HCl 500 MG Tablet PO ×2 (07:54→17:38)
[2021-02-13] MEDS: guaiFENesin 600 MG Tablet PO ×2 (07:54→21:15)
[2021-02-13] MEDS: Allopurinol 300 MG Tablet PO (07:54)
[2021-02-13] MEDS: Folic Acid 1 MG Tablet PO (07:54)
[2021-02-13] MEDS: Potassium Chloride Oral Tablet 20 MEQ PO ×2 (07:54→17:38)
[2021-02-13] MEDS: Isosorbide Mononitrate 60 MG Tablet PO ×2 (07:54→21:20)
[2021-02-13] MEDS: Aspirin 81 MG TAB.CHEW PO (07:54)
[2021-02-13] MEDS: Insulin Lispro 100 UNIT/ML INSULN.PEN SC ×3 (08:01→17:36)
[2021-02-13 10:55] LABS: Bedside Glucose 123 mg/dL (70-110)
--- NOTE | 2021-02-13 14:01 | CASEMGMT ---
Social Work Met with pt per her request to discuss DC plans. Pt requesting to DC home soon. Inquired about how she was doing with therapy and if she still needed assistance. Pt explained her son will be able to assist her but that she is doing well, because her daughters are on vacation this week. Offered to discuss with IDT about DC recommendations and received permission to contact dtr. Spoke with IDT and recommending continued therapy. Pt still needing assistance with some tasks, getting SOB with activity, and has wound dressing changes. Spoke with dtr who is returning home 02/16. Dtr understands pt wants to DC home but states will not have / and she still needs assist with toileting tasks. Dtr prefers for pt to remain until closer to PLOF before DCing home. EMMY agreeable. SW followed up with pt and she is agreeable to remain for continued therapy and nursing. Alissa Le, SENIOR ORACLE ADF DEVELOPER BUTTON ATTACHING MACHINE OPERATOR
[2021-02-13 16:41] LABS: Bedside Glucose 123 mg/dL (70-110)
[2021-02-13] MEDS: Atorvastatin Calcium 10 MG Tablet PO (21:16)
[2021-02-13 21:41] LABS: Bedside Glucose 110 mg/dL (70-110)
[2021-02-14 05:00] VITALS: BP 148/52; PULSE 71; RESP 16; TEMP 36.2; O2SAT 95
[2021-02-14 06:31] LABS: Bedside Glucose 122 mg/dL (70-110)
[2021-02-14] MEDS: Menthol/Lanolin/Calamine/Znox 113 GM Tube 1 APPLIC TOPICAL ×2 (06:31→17:09)
[2021-02-14] MEDS: Colchicine 0.6 MG TABLET PO (06:31)
[2021-02-14] MEDS: Methylcellulose 2 GM Bottle PO (06:31)
[2021-02-14] MEDS: Spironolactone 25 MG Tablet PO (06:31)
[2021-02-14] MEDS: Arthritis Pain Compound 60 CLICK TUBE TOPICAL ×3 (06:31→22:04)
[2021-02-14] MEDS: Fluticasone 0.05% 1 SPRAY NASAL.SRY 2 SPRAY NASAL (06:32)
[2021-02-14] MEDS: Enoxaparin 40 MG/0.4 ML Syringe SC (06:32)
[2021-02-14] MEDS: Furosemide 20 MG Tablet PO ×2 (06:32→12:49)
[2021-02-14] MEDS: FLUoxetine 20 MG Capsule 40 MG PO (06:33)
[2021-02-14] MEDS: Nystatin Powder 15gm Bottle 1 APPLIC TOPICAL ×2 (06:33→17:09)
[2021-02-14] MEDS: Pantoprazole Sodium 20 MG Tablet PO (06:33)
[2021-02-14] MEDS: Polyethylene Glycol 3350 17 GM PACKET PO (06:33)
[2021-02-14 06:34] VITALS: BP 148/52; PULSE 71
[2021-02-14] MEDS: Levothyroxine 75 MCG Tablet PO (06:34)
[2021-02-14] MEDS: Metoprolol(XL)Succ 25 MG Tablet PO (06:34)
[2021-02-14] MEDS: Montelukast 10 MG Tablet PO (06:35)
[2021-02-14] MEDS: Glucerna Shake 120 ML LIQUID PO ×4 (06:48→22:07)
[2021-02-14 07:30] VITALS: PULSE 88; RESP 18; O2SAT 97
[2021-02-14] MEDS: Albuterol 2.5 MG/3 ML VIAL.NEB. INHALATION ×2 (07:30→18:43)
[2021-02-14] MEDS: Insulin Lispro 100 UNIT/ML INSULN.PEN SC ×2 (08:05→17:06)
[2021-02-14] MEDS: Lactulose 20 GM/30 ML UDC 10 GM PO ×2 (08:07→22:02)
[2021-02-14] MEDS: Estrogens,Conj. 0.625 MG Tablet PO (08:08)
[2021-02-14] MEDS: guaiFENesin 600 MG Tablet PO ×2 (08:08→22:04)
[2021-02-14] MEDS: Potassium Chloride Oral Tablet 20 MEQ PO ×2 (08:09→17:07)
[2021-02-14] MEDS: metFORMIN HCl 500 MG Tablet PO ×2 (08:09→17:07)
[2021-02-14] MEDS: Isosorbide Mononitrate 60 MG Tablet PO ×2 (08:09→22:07)
[2021-02-14] MEDS: Folic Acid 1 MG Tablet PO (08:09)
[2021-02-14] MEDS: Allopurinol 300 MG Tablet PO (08:09)
[2021-02-14] MEDS: Aspirin 81 MG TAB.CHEW PO (08:09)
[2021-02-14 10:41] LABS: Bedside Glucose 67 mg/dL (70-110)
[2021-02-14 10:56] LABS: Bedside Glucose 78 mg/dL (70-110)
--- NOTE | 2021-02-14 11:05 | NURSING ---
Addendum entered by Brenda Vincent 02/14/21 18:04: DR HOWELL OF HUMALOG BEING HELD AT LUNCH. Original Note: R' BLOOD SUGAR 68. PEANUT BUTTER GIVEN/COKE PER REQUEST. INCREASED TO 78. HELD INSULIN. WILL NOTIFY DR HOWELL.
[2021-02-14 14:51] VITALS: BP 124/54; PULSE 77; RESP 20; TEMP 37; O2SAT 98
--- NOTE | 2021-02-14 15:37 | CHAPLAIN ---
Type of Pastoral Visit ___ Initial Visit _x__ Follow-up Visit ___ On-call Visit ___ General Patient Visit ___ Spiritual Assessment ___ Family Conference ___ Bereavement ___ Rapid Response ___ Code Blue ___ Other (describe below) Pastoral Care Referral From _x__ Patient ___ Family ___ Nurse ___ Physician ___ Sprinkler Helper ___ Arcade Games Mechanic ___ Other (describe below) Sacrament/Intervention _x__ Active listening ___ Anointing ___ Sikh ___ Bereavement ___ Communion ___ Sirena exploration ___ ___ Life review _x__ Prayer ___ Reconciliation ___ Sacrament of Sick _x__ Supportive presence ___ Wedding ___ Other (describe below) Pastoral Comments patient reports she is getting stronger and healing better; pt goal is to get home soon; pt speaks of good family support but just wants to be independent if possible;
[2021-02-14 16:25] LABS: Bedside Glucose 138 mg/dL (70-110)
[2021-02-14 18:43] VITALS: PULSE 75; RESP 18
[2021-02-14 21:30] LABS: Bedside Glucose 125 mg/dL (70-110)
[2021-02-14] MEDS: Atorvastatin Calcium 10 MG Tablet PO (22:04)
[2021-02-14 22:13] VITALS: BP 132/63; PULSE 76
[2021-02-15] VITALS (7 sets, daily range): BP systolic 125–130; BP diastolic 52–53; PULSE 64–76; RESP 12–20; TEMP 36–36.8; O2SAT 93–98
[2021-02-15 06:25] LABS: Bedside Glucose 108 mg/dL (70-110)
[2021-02-15] MEDS: Fluticasone 0.05% 1 SPRAY NASAL.SRY 2 SPRAY NASAL (06:35)
[2021-02-15] MEDS: Arthritis Pain Compound 60 CLICK TUBE TOPICAL ×3 (06:36→21:27)
[2021-02-15] MEDS: FLUoxetine 20 MG Capsule 40 MG PO (06:37)
[2021-02-15] MEDS: Enoxaparin 40 MG/0.4 ML Syringe SC (06:37)
[2021-02-15] MEDS: Levothyroxine 75 MCG Tablet PO (06:38)
[2021-02-15] MEDS: Furosemide 20 MG Tablet PO ×2 (06:38→13:55)
[2021-02-15] MEDS: Metoprolol(XL)Succ 25 MG Tablet PO (06:38)
[2021-02-15] MEDS: Colchicine 0.6 MG TABLET PO (06:38)
[2021-02-15] MEDS: Montelukast 10 MG Tablet PO (06:38)
[2021-02-15] MEDS: Pantoprazole Sodium 20 MG Tablet PO (06:38)
[2021-02-15] MEDS: Polyethylene Glycol 3350 17 GM PACKET PO (06:39)
[2021-02-15] MEDS: Methylcellulose 2 GM Bottle PO (06:39)
[2021-02-15] MEDS: Spironolactone 25 MG Tablet PO (06:39)
[2021-02-15] MEDS: Menthol/Lanolin/Calamine/Znox 113 GM Tube 1 APPLIC TOPICAL ×2 (06:39→17:50)
[2021-02-15] MEDS: Nystatin Powder 15gm Bottle 1 APPLIC TOPICAL ×2 (06:40→17:51)
[2021-02-15] MEDS: Glucerna Shake 120 ML LIQUID PO ×4 (06:43→21:24)
[2021-02-15] MEDS: Albuterol 2.5 MG/3 ML VIAL.NEB. INHALATION ×3 (06:54→18:51)
--- NOTE | 2021-02-15 07:09 | MDS.RN ---
Information for the mds was obtained from review of the clinical record, interview of resident, staff, and direct observation of resident's care.
[2021-02-15] MEDS: Folic Acid 1 MG Tablet PO (07:45)
[2021-02-15] MEDS: metFORMIN HCl 500 MG Tablet PO ×2 (07:45→17:48)
[2021-02-15] MEDS: guaiFENesin 600 MG Tablet PO ×2 (07:45→21:24)
[2021-02-15] MEDS: Potassium Chloride Oral Tablet 20 MEQ PO ×2 (07:45→17:48)
[2021-02-15] MEDS: Aspirin 81 MG TAB.CHEW PO (07:45)
[2021-02-15] MEDS: Allopurinol 300 MG Tablet PO (07:45)
[2021-02-15] MEDS: Isosorbide Mononitrate 60 MG Tablet PO ×2 (07:46→21:24)
[2021-02-15] MEDS: Lactulose 20 GM/30 ML UDC 10 GM PO ×2 (07:46→21:25)
--- NOTE | 2021-02-15 07:51 | CPS ---
patient wears 2.5L with cpap at night, RA during the day
[2021-02-15 11:16] LABS: Bedside Glucose 163 mg/dL (70-110)
[2021-02-15 16:21] LABS: Bedside Glucose 106 mg/dL (70-110)
[2021-02-15] MEDS: Atorvastatin Calcium 10 MG Tablet PO (21:24)
[2021-02-15 22:06] LABS: Bedside Glucose 130 mg/dL (70-110)
--- NOTE | 2021-02-15 22:35 | NURSING ---
Pt given hs snack of vanilla ice cream and peanut butter after blood sugar obtained. Removed CPAP mask prior to consumption of food. Lantus administered per dr order.
[2021-02-16] VITALS (7 sets, daily range): BP systolic 108–119; BP diastolic 40–52; PULSE 65–89; RESP 16–20; TEMP 36.1–36.8; O2SAT 94–98
[2021-02-16 06:21] LABS: Bedside Glucose 134 mg/dL (70-110)
[2021-02-16 07:16] LABS: Bedside Glucose 135 mg/dL (70-110)
[2021-02-16] MEDS: FLUoxetine 20 MG Capsule 40 MG PO (08:17)
[2021-02-16] MEDS: Pantoprazole Sodium 20 MG Tablet PO (08:17)
[2021-02-16] MEDS: Furosemide 20 MG Tablet PO ×2 (08:17→13:54)
[2021-02-16] MEDS: Levothyroxine 75 MCG Tablet PO (08:17)
[2021-02-16] MEDS: Nystatin Powder 15gm Bottle 1 APPLIC TOPICAL ×2 (08:18→10:20)
[2021-02-16] MEDS: Enoxaparin 40 MG/0.4 ML Syringe SC (08:18)
[2021-02-16] MEDS: Colchicine 0.6 MG TABLET PO (08:18)
[2021-02-16] MEDS: Montelukast 10 MG Tablet PO (08:18)
[2021-02-16] MEDS: Glucerna Shake 120 ML LIQUID PO ×4 (08:19→22:49)
[2021-02-16] MEDS: Menthol/Lanolin/Calamine/Znox 113 GM Tube 1 APPLIC TOPICAL ×2 (08:19→10:20)
[2021-02-16] MEDS: Methylcellulose 2 GM Bottle PO (08:21)
[2021-02-16] MEDS: Spironolactone 25 MG Tablet PO (08:24)
--- NOTE | 2021-02-16 10:15 | NURSING ---
Assisted to toilet. New Mepilex applied after having a BM.
--- NOTE | 2021-02-16 10:28 | CASEMGMT ---
Social Work Spoke with dtr about DC date. Dtr is off work 02/24 and prefers DC then. IDT agreeable. Spoke with pt and pt is agreeable to DC 02/24. Provided [facility] list of providers including quality and resource use data and consistent with the patient?s preferred geographic region, medical needs, and insurance network. Pt used [facility] prior and prefers to use again and requesting a ACTUARIAL CONSULTANT. Referral made to [facility] for PT/OT/SN/VALENZUELA. No DME needs. Plan: DC home alone with family support 02/24, [facility] PT/OT/SN/VALENZUELA MERI SummersW
[2021-02-16] MEDS: Fluticasone 0.05% 1 SPRAY NASAL.SRY 2 SPRAY NASAL (10:44)
[2021-02-16] MEDS: Arthritis Pain Compound 60 CLICK TUBE TOPICAL ×3 (10:44→22:22)
[2021-02-16] MEDS: Aspirin 81 MG TAB.CHEW PO (10:50)
[2021-02-16] MEDS: Lactulose 20 GM/30 ML UDC 10 GM PO ×2 (10:50→20:16)
[2021-02-16] MEDS: metFORMIN HCl 500 MG Tablet PO ×2 (10:51→17:42)
[2021-02-16] MEDS: Folic Acid 1 MG Tablet PO (10:51)
[2021-02-16] MEDS: Isosorbide Mononitrate 60 MG Tablet PO ×2 (10:51→20:16)
[2021-02-16] MEDS: Estrogens,Conj. 0.625 MG Tablet PO (10:51)
[2021-02-16] MEDS: guaiFENesin 600 MG Tablet PO ×2 (10:51→20:17)
[2021-02-16] MEDS: Potassium Chloride Oral Tablet 20 MEQ PO ×2 (10:51→17:43)
[2021-02-16] MEDS: Allopurinol 300 MG Tablet PO (10:52)
[2021-02-16 11:30] LABS: Bedside Glucose 156 mg/dL (70-110)
[2021-02-16] MEDS: Albuterol 2.5 MG/3 ML VIAL.NEB. INHALATION ×2 (13:10→18:40)
--- NOTE | 2021-02-16 15:23 | DCINST_ITS ---
- Discharge Diagnoses Current Active Problems: Current Active and Chronic Problems (Last Reviewed 09/19/20 @ 15:[address] Long Jovel MD) Hypokalemia (Acute) Debility (Acute) Fall (Acute) Urinary tract infection due to extended-spectrum beta lactamase (ESBL) producing Escherichia coli (Acute) Hypoglycemia (Acute) Diabetes mellitus (Chronic) Coronary artery disease (Chronic) Chronic diastolic heart failure (Chronic) Hypertension (Chronic) Aortic stenosis (Chronic) Gout (Chronic) Hypothyroidism (Chronic) Gastroesophageal reflux disease (Chronic) Depression (Chronic) Right bundle branch block (RBBB) (Chronic) Hyperlipemia (Chronic) You will use the following diet at home:: No restrictions, Regular Your food should be the consistency of: Regular Your liquids should be the consistency of: Regular/Thin Discharge Activity: Return to Normal Activity, May Shower, Use Walker Weight Bearing Status: Weight bearing as tolerated Call your doctor if you observe: Fever of 101 or Higher, Inability to urinate, Inability to have a bowel movement, Shortness of breath, Chest pain, Uncontrolled pain Allergies/Adverse Reactions: Allergies Iodinated Contrast Media [CONTRASTS] Adverse Reaction (Verified 01/30/21 03:51) Hives Medications to take at Discharge Albuterol Aerosols [Ventolin Aerosols] 2.5 mg INHALATION TID 06/05/19 Aspirin [Aspirin, Baby] 81 mg PO DAILY@0800 06/05/19 Colchicine 0.6 mg PO PRN PRN 06/05/19 Folic Acid 1 mg PO DAILY 06/05/19 Insulin Regular, Human [Humulin R] 10 units SUBCUT QHS 06/05/19 Isosorbide Mononitrate [Imdur] 60 mg PO BID 06/05/19 Levothyroxine [Synthroid] 75 mcg PO DAILY 06/05/19 Metoprolol Succinate [Toprol Xl] 25 mg PO DAILY 06/05/19 Nitroglycerin (INPATIENT USE) [Nitrostat] 0.4 mg SUBLINGUAL Q5M PRN 06/05/19 Omeprazole 40 mg PO DAILY 06/05/19 Polyethylene Glycol 3350 [Miralax] 17 gm PO DAILY 06/05/19 Simvastatin 20 mg PO QHS 06/05/19 Methylcellulose [Citrucel] 850 gm PO DAILY 06/29/19 allopurinol 300 mg tablet 300 mg PO DAILY tab 09/19/20 fluoxetine 40 mg capsule 40 cap PO DAILY 09/19/20 guaifenesin 600 mg tablet, extended release 12 hr 600 mg PO BID 09/19/20 Estrogens, Conjugated [Premarin] 0.625 mg VAGINAL MOWEFR 01/30/21 Lactulose 10 gm PO BID 01/30/21 Montelukast [Singulair] 10 mg PO DAILY 01/30/21 Furosemide [Lasix] 20 mg PO BIDLX 02/04/21 Nystatin Powder [Mycostatin Powder] 1 applic TOPICAL BID 02/04/21 Potassium Chloride Oral Tablet [K-Dur] 40 meq PO BID 02/04/21 Acetaminophen [Tylenol] 1,000 mg PO Q6H PRN PRN tablet 02/16/21 Fluticasone 0.05% [Flonase Nasal [place]] 2 spray NASAL DAILY #1 02/16/21 Menthol/Lanolin/Calamine/Znox [Calmoseptine Ointment] 1 applic TOPICAL BID tube 02/16/21 Metformin HCl 500 mg PO BID #60 tablet 02/16/21 Spironolactone [Aldactone] 25 mg PO DAILY #30 tablet 02/16/21 The following prescriptions were given: Spironolactone [Aldactone] 25 mg PO DAILY #30 tablet Transmission Status: Pending to [facility]/pharmacy #[id number] Fluticasone 0.05% [Flonase Nasal [place]] 2 spray NASAL DAILY #1 Metformin HCl 500 mg PO BID #60 tablet Transmission Status: Pending to [facility]/pharmacy #[id number] Primary Care Physician: Rommel Arango MD [Primary Care Provider] - Please follow up with your Primary Care Physician in: 1 week. Test Results: Test results from this visit will be discussed in further detail at your follow- up appointment, if applicable. Proposed Discharge Date: 02/24/21
--- NOTE | 2021-02-16 15:24 | PCM.DC.SUM ---
Discharge Date and Diagnosis - Problem List Patient Problems: Active and Suspected Problems (Last Reviewed 09/19/20 @ 15:[address] Long Jovel MD) Hypokalemia (Acute) Debility (Acute) Fall (Acute) Urinary tract infection due to extended-spectrum beta lactamase (ESBL) producing Escherichia coli (Acute) Hypoglycemia (Acute) Date of Admission: 02/04/21 Date of Discharge: 02/24/21 - Primary Discharge Diagnosis Acute Problems: Active Problems (Last Reviewed 09/19/20 @ 15:[address] Long Jovel MD) Hypokalemia (Acute) Debility (Acute) Fall (Acute) Urinary tract infection due to extended-spectrum beta lactamase (ESBL) producing Escherichia coli (Acute) Hypoglycemia (Acute) - Secondary Discharge Diagnosis Chronic Problems: Chronic Problems (Last Reviewed 09/19/20 @ 15:[address] Long Jovel MD) Insulin dependent diabetes mellitus (Chronic) Diabetes mellitus (Chronic) Coronary artery disease (Chronic) Chronic diastolic heart failure (Chronic) Hypertension (Chronic) Aortic stenosis (Chronic) Gout (Chronic) Hypothyroidism (Chronic) Gastroesophageal reflux disease (Chronic) Depression (Chronic) Atherosclerosis of coronary artery of [place] heart without angina pectoris (Chronic) Chronic diastolic (congestive) heart failure (Chronic) Nonrheumatic aortic (valve) stenosis (Chronic) Right bundle branch block (RBBB) (Chronic) Essential hypertension (Chronic) Hyperlipemia (Chronic) Hospital Course and Treatment Imaging Results: 02/04/21 16:29 Diet: Cardiac: Calorie-Controlled Food consistency:: Regular Liquid Consistency:: Regular/Thin Dietary Modifications:: Sodium Restricted Type of Dietary Supplement:: Is pt able to select menu?: Yes Fluid restriction:: 1500 mL How many daily calories?: 1600 calorie Clinical Impression(s) from Imaging Studies Shoulder X-Ray 02/05/21 18:55 IMPRESSION: Degenerative changes right shoulder. There is narrowing of the acromiohumeral space suggesting rotator cuff pathology. Electronically Signed: Camden Hong DO at 21:58 EDT Tel [phone], Service support , Labs (Last 48 Hours) 02/14/21 02/14/21 02/15/21 16:18 21:24 06:13 POC Glucose 138 H 125 H 108 02/15/21 02/15/21 02/15/21 11:12 16:07 21:51 POC Glucose 163 H 106 130 H 02/16/21 02/16/21 02/16/21 06:04 07:10 11:24 POC Glucose 134 H 135 H 156 H Consultations 02/04/21 17:21 Consult: Onc/Wound/field specialist Routine Comment: AOC on coccyx Reason for Consult:: AOC on coccyx Operations: None Procedures: None Summary of Care Provided: The patient is a 80 year old Female with below past medical history hospitalized for hypoglycemia secondary to ESBL E. Coli Urinary tract infection, complicated by severe hypokalemia, admitted to TCU with debility, here for rehabilitation, strengthening, prior to discharge home alone. Discharge home alone with family support, [facility] PT/OT/SN/VALENZUELA. Patient Problems: Active and Suspected Problems (Last Reviewed 09/19/20 @ 15:[address] Long Jovel MD) Hypokalemia (Acute) Debility (Acute) Fall (Acute) Urinary tract infection due to extended-spectrum beta lactamase (ESBL) producing Escherichia coli (Acute) Hypoglycemia (Acute) - Physical Exam Vitals/I&O's: Vital Signs Temp Pulse Resp BP Pulse Ox 98.2 F 75 16 119/40 L 98 02/16/21 14:19 02/16/21 14:19 02/16/21 14:19 02/16/21 14:19 02/16/21 14:19 Oxygen Flow Rate (L/min) 2.5 Oxygen Delivery Method Room Air Weight: 87.09 kg Body Mass Index (BMI) 32.8 Intake and Output for Last 24 Hours 02/14/21 02/15/21 02/16/21 23:59 23:59 23:59 Intake Total 640 / 640 1165 / 1165 860 / 860 Output Total 1250 / 1250 750 / 750 500 / 500 Balance -610 / -610 415 / 415 360 / 360 Laboratory Results 02/15/21 16:07: POC Glucose 106 02/15/21 21:51: POC Glucose 130 H 02/16/21 06:04: POC Glucose 134 H 02/16/21 07:10: POC Glucose 135 H 02/16/21 11:24: POC Glucose 156 H Current Medications Acetaminophen (Acetaminophen 500 Mg Tablet) 1,000 mg PO Q6H PRN PRN PRN Reason: Pain Score 1-10 Albuterol Sulfate (Albuterol 2.5 Mg/3 Ml Vial.Neb.) 2.5 mg INHALATION TID.RT [facility] Last Admin: 02/16/21 13:10 Dose: 2.5 mg Documented by: Allopurinol (Allopurinol 300 Mg Tablet) 300 mg PO DAILYCM [facility] Last Admin: 02/16/21 10:52 Dose: 300 mg Documented by: Aspirin (Aspirin 81 Mg Tab.Chew) 81 mg PO DAILY@0800 [facility] Last Admin: 02/16/21 10:50 Dose: 81 mg Documented by: Atorvastatin Calcium (Atorvastatin Calcium 10 Mg Tablet) 10 mg PO QHS [facility] Last Admin: 02/15/21 21:24 Dose: 10 mg Documented by: Bisacodyl (Bisacodyl 10 Mg Suppository) 10 mg RC DAILY PRN PRN Reason: CONSTIPATION Calamine/Phenol (Menthol/Lanolin/Calamine/Znox 113 Gm Tube) 1 applic TOPICAL BID [facility]; Protocol Last Admin: 02/16/21 08:19 Dose: 1 applic Documented by: Colchicine (Colchicine 0.6 Mg Tablet) 0.6 mg PO DAILY [facility] Last Admin: 02/16/21 08:18 Dose: 0.6 mg Documented by: Compound Med (Arthritis Pain Compound 60 Click Tube) 2 click TOPICAL TID [facility]; Protocol Last Admin: 02/16/21 13:55 Dose: 2 click Documented by: Enoxaparin Sodium (Enoxaparin 40 Mg/0.4 Ml Syringe) 40 mg SC DAILY@0600 [facility] Last Admin: 02/16/21 08:18 Dose: 40 mg Documented by: Estrogens Conjugated (Estrogens,Conj. 0.625 Mg Tablet) 0.625 mg PO MoWeFr@0800 [facility] Last Admin: 02/16/21 10:51 Dose: 0.625 mg Documented by: Fluoxetine HCl (Fluoxetine 20 Mg Capsule) 40 mg PO DAILY [facility] Last Admin: 02/16/21 08:17 Dose: 40 mg Documented by: Fluticasone Propionate (Fluticasone 0.05% 1 [place] Nasal.Sry) 2 spray NASAL DAILY [facility] Last Admin: 02/16/21 10:44 Dose: 2 spray Documented by: Folic Acid (Folic Acid 1 Mg Tablet) [facility] Last Admin: 02/16/21 10:51 Dose: 1 mg Documented by: Furosemide (Furosemide 20 Mg Tablet) 20 mg PO BIDLX [facility] Last Admin: 02/16/21 13:54 Dose: 20 mg Documented by: Guaifenesin (Guaifenesin 600 Mg Tablet) 600 mg PO BID@799,1999 [facility] Last Admin: 02/16/21 10:51 Dose: 600 mg Documented by: Insulin Glargine (Insulin Glargine 100 Units/Ml Pen) 10 units SC QHS [facility] Last Admin: 02/15/21 22:40 Dose: 10 u Documented by: Isosorbide Mononitrate (Isosorbide Mononitrate 60 Mg Tablet) 60 mg PO BID@ [facility] Last Admin: 02/16/21 10:51 Dose: 60 mg Documented by: Lactulose (Lactulose 20 Gm/30 Ml Udc) 10 gm PO BID@799,1999 [facility] Last Admin: 02/16/21 10:50 Dose: 10 gm Documented by: Levothyroxine Sodium (Levothyroxine 75 Mcg Tablet) 75 mcg PO DAILY@0600 [facility] Last Admin: 02/16/21 08:17 Dose: 75 mcg Documented by: Metformin HCl (Metformin Hcl 500 Mg Tablet) [facility] Last Admin: 02/16/21 10:51 Dose: 500 mg Documented by: Methylcellulose (Methylcellulose 2 Gm Bottle) 2 gm PO DAILY [facility] Last Admin: 02/16/21 08:21 Dose: 2 gm Documented by: Metoprolol Succinate (Metoprolol(Xl)Succ 25 Mg Tablet) 25 mg PO DAILY [facility] Last Admin: 02/16/21 08:20 Dose: Not Given Documented by: Montelukast Sodium (Montelukast 10 Mg Tablet) 10 mg PO DAILY [facility] Last Admin: 02/16/21 08:18 Dose: 10 mg Documented by: Nitroglycerin (Nitroglycerin (Inpatient Use) 0.4 Mg Tab.Subl) 0.4 mg SL Q5M PRN PRN Reason: CARDIAC/CHEST PAIN Nutritional Formula (Lactose Free) (Glucerna Shake 120 Ml Liquid) 120 ml PO 4X/DAY [facility] Last Admin: 02/16/21 10:56 Dose: 120 ml Documented by: Nystatin (Nystatin Powder 15gm Bottle) 1 applic TOPICAL BID [facility]; Protocol Last Admin: 02/16/21 08:18 Dose: 1 applic Documented by: Pantoprazole Sodium (Pantoprazole Sodium 20 Mg Tablet) 20 mg PO 0600 [facility] Last Admin: 02/16/21 08:17 Dose: 20 mg Documented by: Polyethylene Glycol (Polyethylene Glycol 3350 17 Gm Packet) 17 gm PO DAILY [facility] Last Admin: 02/16/21 08:19 Dose: Not Given Documented by: Potassium Chloride (Potassium Chloride Oral Tablet 20 Meq) 20 meq PO BIDCM [facility] Last Admin: 02/16/21 10:51 Dose: 20 meq Documented by: Sodium Chloride (0.9% Saline Lock 10 Ml Syringe) 10 - 40 ml IV UD PRN PRN Reason: SALINE FLUSH Last Admin: 02/13/21 05:41 Dose: 10 ml Documented by: Spironolactone (Spironolactone 25 Mg Tablet) 25 mg PO DAILY [facility] Last Admin: 02/16/21 08:24 Dose: 25 mg Documented by: Discharge Diet: No Restrictions Discharge Activity: Return to Normal Activity, May Shower, Use Walker Weight Bearing Status: Weight bearing as tolerated Call your doctor if you observe: Fever of 101 or Higher, Inability to urinate, Inability to have a bowel movement, Shortness of breath, Chest pain, Uncontrolled pain Home Medications: Medications to take at Discharge Albuterol Aerosols [Ventolin Aerosols] 2.5 mg INHALATION TID 06/05/19 Aspirin [Aspirin, Baby] 81 mg PO DAILY@0800 06/05/19 Colchicine 0.6 mg PO PRN PRN 06/05/19 Folic Acid 1 mg PO DAILY 06/05/19 Insulin Regular, Human [Humulin R] 10 units SUBCUT QHS 06/05/19 Isosorbide Mononitrate [Imdur] 60 mg PO BID 06/05/19 Levothyroxine [Synthroid] 75 mcg PO DAILY 06/05/19 Metoprolol Succinate [Toprol Xl] 25 mg PO DAILY 06/05/19 Nitroglycerin (INPATIENT USE) [Nitrostat] 0.4 mg SUBLINGUAL Q5M PRN 06/05/19 Omeprazole 40 mg PO DAILY 06/05/19 Polyethylene Glycol 3350 [Miralax] 17 gm PO DAILY 06/05/19 Simvastatin 20 mg PO QHS 06/05/19 Methylcellulose [Citrucel] 850 gm PO DAILY 06/29/19 allopurinol 300 mg tablet 300 mg PO DAILY tab 09/19/20 fluoxetine 40 mg capsule 40 cap PO DAILY 09/19/20 guaifenesin 600 mg tablet, extended release 12 hr 600 mg PO BID 09/19/20 Estrogens, Conjugated [Premarin] 0.625 mg VAGINAL MOWEFR 01/30/21 Lactulose 10 gm PO BID 01/30/21 Montelukast [Singulair] 10 mg PO DAILY 01/30/21 Furosemide [Lasix] 20 mg PO BIDLX 02/04/21 Nystatin Powder [Mycostatin Powder] 1 applic TOPICAL BID 02/04/21 Potassium Chloride Oral Tablet [K-Dur] 40 meq PO BID 02/04/21 Acetaminophen [Tylenol] 1,000 mg PO Q6H PRN PRN tablet 02/16/21 Fluticasone 0.05% [Flonase Nasal [place]] 2 spray NASAL DAILY #1 02/16/21 Menthol/Lanolin/Calamine/Znox [Calmoseptine Ointment] 1 applic TOPICAL BID tube 02/16/21 Metformin HCl 500 mg PO BID #60 tablet 02/16/21 Spironolactone [Aldactone] 25 mg PO DAILY #30 tablet 02/16/21 Following Prescriptions Were Given to Patient: Spironolactone [Aldactone] 25 mg PO DAILY #30 tablet Transmission Status: Pending to [facility]/pharmacy #[id number] Fluticasone 0.05% [Flonase Nasal [place]] 2 spray NASAL DAILY #1 Metformin HCl 500 mg PO BID #60 tablet Transmission Status: Pending to [facility]/pharmacy #[id number] Primary Care Physician: Rommel Arango MD [Primary Care Provider] - Please follow up with your Primary Care Physician in: 1 week. Disposition: Home with Home Health Minutes spent on discharge:: 35 Patient Condition:: Stable Medical Necessity - Tobacco Use Smoking Status: Former smoker Tobacco Use: Non-smoker Meaningful Use Info Meaningful Use Diagnoses (Choose all that apply): None applicable
[2021-02-16 16:21] LABS: Bedside Glucose 166 mg/dL (70-110)
[2021-02-16 21:35] LABS: Bedside Glucose 165 mg/dL (70-110)
--- NOTE | 2021-02-16 22:03 | NURSING ---
HS snack provided- vanilla ice cream and peanut butter.
[2021-02-16] MEDS: Atorvastatin Calcium 10 MG Tablet PO (22:45)
--- NOTE | 2021-02-16 22:45 | NURSING ---
Trilogy unit turned on and face mask applied per pt. Water chamber filled.
[2021-02-17 05:00] VITALS: BP 123/53; PULSE 78; RESP 18; TEMP 36.9; O2SAT 97
[2021-02-17 06:16] LABS: Bedside Glucose 138 mg/dL (70-110)
[2021-02-17 06:58] VITALS: PULSE 76; RESP 16; O2SAT 94
[2021-02-17] MEDS: Albuterol 2.5 MG/3 ML VIAL.NEB. INHALATION ×2 (06:58→19:45)
[2021-02-17 07:09] VITALS: BP 123/53; PULSE 78
[2021-02-17] MEDS: Levothyroxine 75 MCG Tablet PO (07:09)
[2021-02-17] MEDS: Montelukast 10 MG Tablet PO (07:09)
[2021-02-17] MEDS: Nystatin Powder 15gm Bottle 1 APPLIC TOPICAL ×2 (07:09→17:05)
[2021-02-17] MEDS: Furosemide 20 MG Tablet PO ×2 (07:09→13:57)
[2021-02-17] MEDS: Enoxaparin 40 MG/0.4 ML Syringe SC (07:09)
[2021-02-17] MEDS: Pantoprazole Sodium 20 MG Tablet PO (07:09)
[2021-02-17] MEDS: Colchicine 0.6 MG TABLET PO (07:09)
[2021-02-17] MEDS: Metoprolol(XL)Succ 25 MG Tablet PO (07:09)
[2021-02-17] MEDS: FLUoxetine 20 MG Capsule 40 MG PO (07:09)
[2021-02-17] MEDS: Spironolactone 25 MG Tablet PO (07:09)
[2021-02-17] MEDS: Menthol/Lanolin/Calamine/Znox 113 GM Tube 1 APPLIC TOPICAL ×2 (07:10→17:05)
[2021-02-17] MEDS: Glucerna Shake 120 ML LIQUID PO ×4 (07:10→22:35)
[2021-02-17] MEDS: Arthritis Pain Compound 60 CLICK TUBE TOPICAL ×3 (07:10→22:32)
[2021-02-17] MEDS: Fluticasone 0.05% 1 SPRAY NASAL.SRY 2 SPRAY NASAL (07:11)
[2021-02-17] MEDS: Polyethylene Glycol 3350 17 GM PACKET PO (07:14)
[2021-02-17] MEDS: Methylcellulose 2 GM Bottle PO (07:26)
--- NOTE | 2021-02-17 08:22 | NURSING ---
Incontinent of lg amount of urine. Pericare done. Complete bed change except fitted sheet. Calmoseptine applied to gluteal folds and coccyx, followed by Mepilex.
[2021-02-17] MEDS: Allopurinol 300 MG Tablet PO (08:27)
[2021-02-17] MEDS: Isosorbide Mononitrate 60 MG Tablet PO ×2 (08:28→19:37)
[2021-02-17] MEDS: Potassium Chloride Oral Tablet 20 MEQ PO ×2 (08:28→17:04)
[2021-02-17] MEDS: metFORMIN HCl 500 MG Tablet PO ×2 (08:28→17:04)
[2021-02-17] MEDS: Folic Acid 1 MG Tablet PO (08:28)
[2021-02-17] MEDS: guaiFENesin 600 MG Tablet PO ×2 (08:28→19:37)
[2021-02-17] MEDS: Lactulose 20 GM/30 ML UDC 10 GM PO ×2 (08:28→19:30)
[2021-02-17] MEDS: Aspirin 81 MG TAB.CHEW PO (08:30)
[2021-02-17 10:55] LABS: Bedside Glucose 224 mg/dL (70-110)
[2021-02-17 13:34] VITALS: BP 122/53; PULSE 83; RESP 18; TEMP 36.6; O2SAT 97
[2021-02-17 16:46] LABS: Bedside Glucose 145 mg/dL (70-110)
[2021-02-17 19:45] VITALS: PULSE 79; RESP 16
[2021-02-17] MEDS: Atorvastatin Calcium 10 MG Tablet PO (22:33)
[2021-02-17 22:36] LABS: Bedside Glucose 146 mg/dL (70-110)
[2021-02-18 05:00] VITALS: BP 115/52; PULSE 68; RESP 16; TEMP 36.6; O2SAT 96
[2021-02-18] MEDS: Polyethylene Glycol 3350 17 GM PACKET PO (05:46)
[2021-02-18] MEDS: Enoxaparin 40 MG/0.4 ML Syringe SC (05:47)
[2021-02-18] MEDS: Methylcellulose 2 GM Bottle PO (05:47)
[2021-02-18] MEDS: Fluticasone 0.05% 1 SPRAY NASAL.SRY 2 SPRAY NASAL (05:48)
[2021-02-18] MEDS: Arthritis Pain Compound 60 CLICK TUBE TOPICAL ×3 (05:49→21:50)
[2021-02-18] MEDS: Furosemide 20 MG Tablet PO ×2 (05:50→14:08)
[2021-02-18] MEDS: Colchicine 0.6 MG TABLET PO (05:50)
[2021-02-18] MEDS: Spironolactone 25 MG Tablet PO (05:50)
[2021-02-18 05:51] VITALS: BP 115/52; PULSE 68
[2021-02-18] MEDS: Metoprolol(XL)Succ 25 MG Tablet PO (05:51)
[2021-02-18] MEDS: Levothyroxine 75 MCG Tablet PO (05:51)
[2021-02-18] MEDS: FLUoxetine 20 MG Capsule 40 MG PO (05:51)
[2021-02-18] MEDS: Pantoprazole Sodium 20 MG Tablet PO (05:51)
[2021-02-18] MEDS: Montelukast 10 MG Tablet PO (05:51)
[2021-02-18] MEDS: Menthol/Lanolin/Calamine/Znox 113 GM Tube 1 APPLIC TOPICAL ×2 (05:51→16:59)
[2021-02-18] MEDS: Nystatin Powder 15gm Bottle 1 APPLIC TOPICAL ×2 (05:52→16:59)
[2021-02-18] MEDS: Glucerna Shake 120 ML LIQUID PO ×4 (05:55→21:53)
[2021-02-18 06:21] LABS: Bedside Glucose 96 mg/dL (70-110)
[2021-02-18] MEDS: Albuterol 2.5 MG/3 ML VIAL.NEB. INHALATION ×2 (07:07→19:04)
[2021-02-18 07:30] VITALS: PULSE 74; RESP 16; O2SAT 93
[2021-02-18] MEDS: Lactulose 20 GM/30 ML UDC 10 GM PO ×2 (07:53→21:49)
[2021-02-18] MEDS: metFORMIN HCl 500 MG Tablet PO ×2 (07:55→16:58)
[2021-02-18] MEDS: Allopurinol 300 MG Tablet PO (07:55)
[2021-02-18] MEDS: Isosorbide Mononitrate 60 MG Tablet PO ×2 (07:55→21:50)
[2021-02-18] MEDS: Potassium Chloride Oral Tablet 20 MEQ PO ×2 (07:55→16:58)
[2021-02-18] MEDS: guaiFENesin 600 MG Tablet PO ×2 (07:55→21:50)
[2021-02-18] MEDS: Aspirin 81 MG TAB.CHEW PO (07:55)
[2021-02-18] MEDS: Folic Acid 1 MG Tablet PO (07:55)
[2021-02-18 10:46] LABS: Bedside Glucose 181 mg/dL (70-110)
[2021-02-18 13:03] VITALS: BP 129/45; PULSE 80; RESP 18; TEMP 36.6; O2SAT 96
[2021-02-18 16:51] LABS: Bedside Glucose 133 mg/dL (70-110)
[2021-02-18 19:54] VITALS: PULSE 74; RESP 18
[2021-02-18 21:31] LABS: Bedside Glucose 131 mg/dL (70-110)
[2021-02-18] MEDS: Atorvastatin Calcium 10 MG Tablet PO (21:52)
[2021-02-18 22:00] VITALS: PULSE 70; RESP 18; O2SAT 97
[2021-02-19 05:00] VITALS: BP 132/54; PULSE 67; RESP 16; TEMP 36.6; O2SAT 96
[2021-02-19 05:45] LABS: Absolute Lymphocyte Count 1.27 X10^3/uL (0.83-4.51); Absolute Neutrophil Count 3.4 X10^3/uL (2.0-7.7); Basophil# 0.12 X10^3/uL; Basophil% 1.9 % (0-1); Eosinophil# 0.55 X10^3/uL; Eosinophils% 8.9 % (0-5); Hematocrit 36.6 % (37-47); Lymphocyte # 1.27 X10^3/ul (0.83-4.51); Lymphocyte % 20.6 % (19-41); Mean Corp Hgb Conc 30.1 g/dL (32-36); Mean Corpuscular Hgb 25.5 pg (27.0-32.0); Mean Corpuscular Volume 84.9 fL (81-99); Mean Platelet Vol. 12.3 fl (6.2-12.0); Monocyte# 0.77 X10^3/uL; Monocyte% 12.5 % (0-10); NRBC Flagged by Analyzer 0 % (0-5); Neutrophil # 3.44 X10^3/uL (2.7-7.7); Neutrophil % 55.8 % (47-70); Platelet Count 281 K/mm3 (150-450); RBC Distribution Width CV 18.9 % (11.6-14.6); RBC Distribution Width SD 57.8 fl (35.1-43.9); Red Blood Count 4.31 M/mm3 (4.2-5.4); White Blood Count 6.2 K/mm3 (4.4-11.0)
[2021-02-19 06:01] LABS: Anion Gap 6 (5-15); BUN 25 mg/dL (7-18); BUN/Creat Ratio 24.5 RATIO (10-20); Calcium,Total 8.8 mg/dL (8.5-10.1); Chloride 104 mmol/L (98-107); Creatinine, Serum 1.02 mg/dL (0.55-1.02); EST Glomerular Filtration Rate 55 mL/min (>60); Est Glom Filt Rate - Afr Amer 67 mL/min (>60); Estimated Creatinine Clearance 38.62 ml/min; Glucose 99 mg/dL (74-106); Potassium 4.2 mmol/L (3.5-5.1); Sodium Level 137 mmol/L (136-145)
[2021-02-19 06:36] LABS: Bedside Glucose 104 mg/dL (70-110)
[2021-02-19] MEDS: Arthritis Pain Compound 60 CLICK TUBE TOPICAL ×3 (06:37→20:33)
[2021-02-19] MEDS: Fluticasone 0.05% 1 SPRAY NASAL.SRY 2 SPRAY NASAL (06:37)
[2021-02-19] MEDS: Enoxaparin 40 MG/0.4 ML Syringe SC (06:39)
[2021-02-19] MEDS: Colchicine 0.6 MG TABLET PO (06:40)
[2021-02-19] MEDS: FLUoxetine 20 MG Capsule 40 MG PO (06:40)
[2021-02-19] MEDS: Polyethylene Glycol 3350 17 GM PACKET PO (06:40)
[2021-02-19] MEDS: Pantoprazole Sodium 20 MG Tablet PO (06:40)
[2021-02-19] MEDS: Methylcellulose 2 GM Bottle PO (06:40)
[2021-02-19 06:41] VITALS: BP 132/54; PULSE 67
[2021-02-19] MEDS: Nystatin Powder 15gm Bottle 1 APPLIC TOPICAL ×2 (06:41→15:36)
[2021-02-19] MEDS: Spironolactone 25 MG Tablet PO (06:41)
[2021-02-19] MEDS: Metoprolol(XL)Succ 25 MG Tablet PO (06:41)
[2021-02-19] MEDS: Menthol/Lanolin/Calamine/Znox 113 GM Tube 1 APPLIC TOPICAL ×2 (06:41→15:36)
[2021-02-19] MEDS: Montelukast 10 MG Tablet PO (06:41)
[2021-02-19] MEDS: Levothyroxine 75 MCG Tablet PO (06:41)
[2021-02-19] MEDS: Furosemide 20 MG Tablet PO ×2 (06:41→15:33)
[2021-02-19] MEDS: Glucerna Shake 120 ML LIQUID PO ×4 (06:46→20:33)
[2021-02-19 06:55] VITALS: PULSE 68; RESP 20; O2SAT 94
[2021-02-19] MEDS: Albuterol 2.5 MG/3 ML VIAL.NEB. INHALATION ×2 (06:55→20:22)
[2021-02-19] MEDS: Estrogens,Conj. 0.625 MG Tablet PO (08:11)
[2021-02-19] MEDS: Folic Acid 1 MG Tablet PO (08:11)
[2021-02-19] MEDS: guaiFENesin 600 MG Tablet PO ×2 (08:11→20:31)
[2021-02-19] MEDS: Lactulose 20 GM/30 ML UDC 10 GM PO ×2 (08:11→20:32)
[2021-02-19] MEDS: Isosorbide Mononitrate 60 MG Tablet PO ×2 (08:11→20:32)
[2021-02-19] MEDS: Potassium Chloride Oral Tablet 20 MEQ PO ×2 (08:11→17:11)
[2021-02-19] MEDS: Aspirin 81 MG TAB.CHEW PO (08:11)
[2021-02-19] MEDS: Allopurinol 300 MG Tablet PO (08:11)
[2021-02-19] MEDS: metFORMIN HCl 500 MG Tablet PO ×2 (08:12→17:11)
[2021-02-19 09:41] VITALS: PULSE 79; RESP 18; O2SAT 97
[2021-02-19 11:16] LABS: Bedside Glucose 157 mg/dL (70-110)
[2021-02-19 14:47] VITALS: BP 137/50; PULSE 74; RESP 18; TEMP 36.2; O2SAT 99
--- NOTE | 2021-02-19 15:49 | NURSING ---
Adri applied to buttock. Blood noted to attends. resident states she has diverticulitis and will bleed at times. Will continue to monitor. Upbeat and pleasant. No complaints voiced at this time.
[2021-02-19 16:21] LABS: Bedside Glucose 135 mg/dL (70-110)
[2021-02-19 20:22] VITALS: PULSE 67; RESP 20
[2021-02-19] MEDS: Atorvastatin Calcium 10 MG Tablet PO (20:33)
[2021-02-19 21:21] LABS: Bedside Glucose 146 mg/dL (70-110)
[2021-02-20 05:00] VITALS: BP 133/55; PULSE 69; RESP 18; TEMP 36.9; O2SAT 95
[2021-02-20 06:00] VITALS: BP 133/55; PULSE 69
[2021-02-20] MEDS: Metoprolol(XL)Succ 25 MG Tablet PO (06:00)
[2021-02-20] MEDS: FLUoxetine 20 MG Capsule 40 MG PO (06:00)
[2021-02-20] MEDS: Nystatin Powder 15gm Bottle 1 APPLIC TOPICAL ×2 (06:00→16:47)
[2021-02-20] MEDS: Furosemide 20 MG Tablet PO ×2 (06:00→13:10)
[2021-02-20] MEDS: Colchicine 0.6 MG TABLET PO (06:00)
[2021-02-20] MEDS: Levothyroxine 75 MCG Tablet PO (06:00)
[2021-02-20] MEDS: Polyethylene Glycol 3350 17 GM PACKET PO (06:00)
[2021-02-20] MEDS: Fluticasone 0.05% 1 SPRAY NASAL.SRY 2 SPRAY NASAL (06:00)
[2021-02-20] MEDS: Glucerna Shake 120 ML LIQUID PO ×4 (06:00→22:35)
[2021-02-20] MEDS: Montelukast 10 MG Tablet PO (06:00)
[2021-02-20] MEDS: Spironolactone 25 MG Tablet PO (06:00)
[2021-02-20] MEDS: Methylcellulose 2 GM Bottle PO (06:00)
[2021-02-20] MEDS: Arthritis Pain Compound 60 CLICK TUBE TOPICAL ×3 (06:00→22:35)
[2021-02-20] MEDS: Menthol/Lanolin/Calamine/Znox 113 GM Tube 1 APPLIC TOPICAL ×2 (06:00→16:46)
[2021-02-20] MEDS: Pantoprazole Sodium 20 MG Tablet PO (06:00)
[2021-02-20 06:21] LABS: Bedside Glucose 104 mg/dL (70-110)
[2021-02-20 07:15] VITALS: PULSE 70; RESP 16; O2SAT 94
[2021-02-20] MEDS: Albuterol 2.5 MG/3 ML VIAL.NEB. INHALATION (07:15)
[2021-02-20] MEDS: Folic Acid 1 MG Tablet PO (08:00)
[2021-02-20] MEDS: Lactulose 20 GM/30 ML UDC 10 GM PO ×2 (08:00→20:47)
[2021-02-20] MEDS: metFORMIN HCl 500 MG Tablet PO ×2 (08:00→16:45)
[2021-02-20] MEDS: guaiFENesin 600 MG Tablet PO ×2 (08:00→20:47)
[2021-02-20] MEDS: Aspirin 81 MG TAB.CHEW PO (08:00)
[2021-02-20] MEDS: Allopurinol 300 MG Tablet PO (08:00)
[2021-02-20] MEDS: Potassium Chloride Oral Tablet 20 MEQ PO ×2 (08:00→16:45)
[2021-02-20] MEDS: Isosorbide Mononitrate 60 MG Tablet PO ×2 (08:00→20:47)
[2021-02-20 10:50] LABS: Bedside Glucose 153 mg/dL (70-110)
[2021-02-20 10:54] LABS: Hematocrit 36.2 % (37-47); Hemoglobin 10.7 g/dL (12.0-15.0)
--- NOTE | 2021-02-20 14:40 | NURSING ---
Addendum entered by Brenda Vincent 02/20/21 17:07: PELVIC ULTRASOUND ORDERED. Original Note: R' HAVING VAGINAL BLEEDING. NO EXTERNAL AREAS VISUALIZED SOURCE FOR BLEEDING. R' DENIES PAIN/CRAMPING. STATES SHE'S HAD THIS FOR TWO DAYS. WILL NOTIFY DR HOWELL. WAGNER WAS DC'D YESTERDAY.
[2021-02-20 15:19] VITALS: BP 128/52; PULSE 69; RESP 20; TEMP 36.6; O2SAT 97
[2021-02-20 16:51] LABS: Bedside Glucose 108 mg/dL (70-110)
--- NOTE | 2021-02-20 17:06 | US_ITS ---
STUDY: ULTRASOUND TRANSVAGINAL CLINICAL: Female, 80 years old. Postmenopausal bleeding. TECHNIQUE: Transvaginal COMPARISON: None. FINDINGS: The uterus is anteverted, midline and measures 6.8 x 4.3 x 3.4 cm. Endometrium measures 7 mm and is hyperechoic. The endometrium contains calcifications. Uterine fibroids largest measuring 2.1 x 1.8 x 1.2 cm. The ovaries are not visualized. No free fluid in the cul-de-sac. Debris is present within the bladder. There is no free fluid in the pelvis. US/Transvaginal Non- IMPRESSION: Mildly thickened endometrium. Recommend DYE WEIGHER consult in this postmenopausal woman with bleeding. Uterine fibroids. Debris is present within the bladder which may represent a urinary tract infection. Ovaries not visualized. Electronically Signed: Geraldo Srinivasan MD at 6:39 EDT , Service support ,
--- NOTE | 2021-02-20 19:30 | NURSING ---
Pt's daughter, Kala, calls verbalizing concerns w/ pt not answering her cell or room phone. Phone# obtained for return call if needed. Went to pt's room and pt on toilet. This nurse assisted pt w/ pericare. New brief applied. Mepliex to coccyx and sacrum intact. Scant amount of blood noted w/ wiping, most likely vaginal. Stool is soft, brown, and formed. Assisted to bed per pt request. Positioned for comfort. Call light w/ in reach. Pt verbalizes she will call Kala.
[2021-02-20 19:40] VITALS: O2SAT 98
[2021-02-20] MEDS: Atorvastatin Calcium 10 MG Tablet PO (20:48)
--- NOTE | 2021-02-20 21:45 | NURSING ---
Assisted pt up to the bathroom. Ambulates using front wheeled walker. Small-moderate amount of medium-red blood in depend. Scant amount of bloody mucous, same color, in toilet. Denies any chest pain, dizziness, lightheadedness, and/or palpitations. Returned to bed and positioned on left side to relieve pressure from coccyx. Call light w/ in reach.
[2021-02-20 22:35] LABS: Bedside Glucose 110 mg/dL (70-110)
[2021-02-21 05:00] VITALS: BP 128/45; PULSE 66; RESP 16; TEMP 36.3
[2021-02-21 06:10] VITALS: BP 128/45; PULSE 66
[2021-02-21] MEDS: Furosemide 20 MG Tablet PO ×2 (06:10→14:40)
[2021-02-21] MEDS: Levothyroxine 75 MCG Tablet PO (06:10)
[2021-02-21] MEDS: Montelukast 10 MG Tablet PO (06:10)
[2021-02-21] MEDS: Pantoprazole Sodium 20 MG Tablet PO (06:10)
[2021-02-21] MEDS: Metoprolol(XL)Succ 25 MG Tablet PO (06:10)
[2021-02-21] MEDS: FLUoxetine 20 MG Capsule 40 MG PO (06:10)
[2021-02-21] MEDS: Arthritis Pain Compound 60 CLICK TUBE TOPICAL ×3 (06:11→21:10)
[2021-02-21] MEDS: Spironolactone 25 MG Tablet PO (06:11)
[2021-02-21] MEDS: Colchicine 0.6 MG TABLET PO (06:11)
[2021-02-21] MEDS: Methylcellulose 2 GM Bottle PO (06:12)
[2021-02-21 06:15] LABS: Bedside Glucose 113 mg/dL (70-110)
[2021-02-21 06:58] VITALS: PULSE 62; RESP 18; O2SAT 97
[2021-02-21] MEDS: Fluticasone 0.05% 1 SPRAY NASAL.SRY 2 SPRAY NASAL (06:58)
[2021-02-21] MEDS: Menthol/Lanolin/Calamine/Znox 113 GM Tube 1 APPLIC TOPICAL ×2 (06:58→17:18)
[2021-02-21] MEDS: Albuterol 2.5 MG/3 ML VIAL.NEB. INHALATION ×2 (06:58→19:26)
[2021-02-21] MEDS: Polyethylene Glycol 3350 17 GM PACKET PO (07:01)
[2021-02-21] MEDS: Nystatin Powder 15gm Bottle 1 APPLIC TOPICAL ×2 (07:01→17:18)
[2021-02-21] MEDS: Glucerna Shake 120 ML LIQUID PO ×4 (07:01→21:11)
[2021-02-21] MEDS: metFORMIN HCl 500 MG Tablet PO ×2 (08:16→17:16)
[2021-02-21] MEDS: Lactulose 20 GM/30 ML UDC 10 GM PO ×2 (08:16→21:09)
[2021-02-21] MEDS: Estrogens,Conj. 0.625 MG Tablet PO (08:16)
[2021-02-21] MEDS: Potassium Chloride Oral Tablet 20 MEQ PO ×2 (08:16→17:17)
[2021-02-21] MEDS: Aspirin 81 MG TAB.CHEW PO (08:16)
[2021-02-21] MEDS: guaiFENesin 600 MG Tablet PO ×2 (08:16→21:10)
[2021-02-21] MEDS: Isosorbide Mononitrate 60 MG Tablet PO ×2 (08:16→21:10)
[2021-02-21] MEDS: Allopurinol 300 MG Tablet PO (08:16)
[2021-02-21] MEDS: Folic Acid 1 MG Tablet PO (08:16)
[2021-02-21 10:46] LABS: Bedside Glucose 157 mg/dL (70-110)
[2021-02-21 15:33] VITALS: BP 112/55; PULSE 81; RESP 18; TEMP 36.6; O2SAT 98
[2021-02-21 15:35] VITALS: PULSE 81; RESP 18; O2SAT 98
[2021-02-21 16:31] LABS: Bedside Glucose 139 mg/dL (70-110)
[2021-02-21 19:26] VITALS: PULSE 71; RESP 16; O2SAT 98
[2021-02-21] MEDS: Atorvastatin Calcium 10 MG Tablet PO (21:10)
[2021-02-21 21:41] LABS: Bedside Glucose 154 mg/dL (70-110)
[2021-02-22 05:00] VITALS: BP 118/50; PULSE 64; RESP 16; TEMP 36; O2SAT 96
[2021-02-22 06:25] LABS: Bedside Glucose 112 mg/dL (70-110)
[2021-02-22] MEDS: Fluticasone 0.05% 1 SPRAY NASAL.SRY 2 SPRAY NASAL (06:28)
[2021-02-22] MEDS: Arthritis Pain Compound 60 CLICK TUBE TOPICAL ×3 (06:29→20:54)
[2021-02-22] MEDS: Methylcellulose 2 GM Bottle PO (06:30)
[2021-02-22] MEDS: Polyethylene Glycol 3350 17 GM PACKET PO (06:30)
[2021-02-22 06:32] VITALS: PULSE 64
[2021-02-22] MEDS: Colchicine 0.6 MG TABLET PO (06:32)
[2021-02-22] MEDS: FLUoxetine 20 MG Capsule 40 MG PO (06:32)
[2021-02-22] MEDS: Spironolactone 25 MG Tablet PO (06:32)
[2021-02-22] MEDS: Furosemide 20 MG Tablet PO ×2 (06:32→14:19)
[2021-02-22] MEDS: Metoprolol(XL)Succ 25 MG Tablet PO (06:32)
[2021-02-22] MEDS: Montelukast 10 MG Tablet PO (06:33)
[2021-02-22] MEDS: Levothyroxine 75 MCG Tablet PO (06:33)
[2021-02-22] MEDS: Menthol/Lanolin/Calamine/Znox 113 GM Tube 1 APPLIC TOPICAL ×2 (06:33→16:39)
[2021-02-22] MEDS: Nystatin Powder 15gm Bottle 1 APPLIC TOPICAL ×2 (06:33→16:38)
[2021-02-22] MEDS: Pantoprazole Sodium 20 MG Tablet PO (06:34)
[2021-02-22] MEDS: Glucerna Shake 120 ML LIQUID PO ×4 (06:34→20:51)
[2021-02-22 06:54] VITALS: PULSE 62; RESP 12; O2SAT 96
[2021-02-22] MEDS: Albuterol 2.5 MG/3 ML VIAL.NEB. INHALATION ×2 (06:54→13:41)
--- NOTE | 2021-02-22 07:28 | CPS ---
patient did not wear home trilogy unit with oxygen bled in
[2021-02-22] MEDS: Lactulose 20 GM/30 ML UDC 10 GM PO ×2 (08:09→20:53)
[2021-02-22] MEDS: guaiFENesin 600 MG Tablet PO ×2 (08:10→20:54)
[2021-02-22] MEDS: Aspirin 81 MG TAB.CHEW PO (08:10)
[2021-02-22] MEDS: Allopurinol 300 MG Tablet PO (08:10)
[2021-02-22] MEDS: Folic Acid 1 MG Tablet PO (08:10)
[2021-02-22] MEDS: metFORMIN HCl 500 MG Tablet PO ×2 (08:10→16:38)
[2021-02-22] MEDS: Potassium Chloride Oral Tablet 20 MEQ PO ×2 (08:10→16:38)
[2021-02-22] MEDS: Isosorbide Mononitrate 60 MG Tablet PO ×2 (08:10→20:54)
[2021-02-22 11:21] LABS: Bedside Glucose 147 mg/dL (70-110)
--- NOTE | 2021-02-22 13:05 | MDS.RN ---
Completed pain interview for RACHEL 02/24/21.
[2021-02-22 13:41] VITALS: PULSE 72; RESP 16
[2021-02-22 15:27] VITALS: BP 107/56; PULSE 71; RESP 16; TEMP 36.1; O2SAT 98
[2021-02-22 15:56] LABS: Bedside Glucose 186 mg/dL (70-110)
[2021-02-22 20:45] VITALS: PULSE 68; RESP 16; O2SAT 95
[2021-02-22] MEDS: Atorvastatin Calcium 10 MG Tablet PO (20:55)
[2021-02-22 21:51] LABS: Bedside Glucose 147 mg/dL (70-110)
[2021-02-23] VITALS (7 sets, daily range): BP systolic 100–118; BP diastolic 48–58; PULSE 61–75; RESP 16–18; TEMP 36.4–36.9; O2SAT 92–97
[2021-02-23] MEDS: Methylcellulose 2 GM Bottle PO (06:07)
[2021-02-23] MEDS: Polyethylene Glycol 3350 17 GM PACKET PO (06:07)
[2021-02-23] MEDS: Colchicine 0.6 MG TABLET PO (06:08)
[2021-02-23] MEDS: Spironolactone 25 MG Tablet PO (06:08)
[2021-02-23] MEDS: FLUoxetine 20 MG Capsule 40 MG PO (06:08)
[2021-02-23] MEDS: Pantoprazole Sodium 20 MG Tablet PO (06:08)
[2021-02-23] MEDS: Levothyroxine 75 MCG Tablet PO (06:08)
[2021-02-23] MEDS: Furosemide 20 MG Tablet PO ×2 (06:09→13:57)
[2021-02-23] MEDS: Metoprolol(XL)Succ 25 MG Tablet PO (06:09)
[2021-02-23] MEDS: Arthritis Pain Compound 60 CLICK TUBE TOPICAL ×3 (06:09→20:42)
[2021-02-23] MEDS: Montelukast 10 MG Tablet PO (06:09)
[2021-02-23] MEDS: Menthol/Lanolin/Calamine/Znox 113 GM Tube 1 APPLIC TOPICAL ×2 (06:10→17:28)
[2021-02-23] MEDS: Nystatin Powder 15gm Bottle 1 APPLIC TOPICAL ×2 (06:11→17:27)
[2021-02-23] MEDS: Fluticasone 0.05% 1 SPRAY NASAL.SRY 2 SPRAY NASAL (06:12)
[2021-02-23] MEDS: Glucerna Shake 120 ML LIQUID PO ×4 (06:15→20:46)
[2021-02-23 06:36] LABS: Bedside Glucose 91 mg/dL (70-110)
[2021-02-23] MEDS: Albuterol 2.5 MG/3 ML VIAL.NEB. INHALATION ×3 (06:41→19:25)
[2021-02-23] MEDS: Aspirin 81 MG TAB.CHEW PO (09:12)
[2021-02-23] MEDS: Potassium Chloride Oral Tablet 20 MEQ PO ×2 (09:12→17:27)
[2021-02-23] MEDS: Isosorbide Mononitrate 60 MG Tablet PO ×2 (09:12→20:41)
[2021-02-23] MEDS: metFORMIN HCl 500 MG Tablet PO ×2 (09:12→17:27)
[2021-02-23] MEDS: Allopurinol 300 MG Tablet PO (09:12)
[2021-02-23] MEDS: guaiFENesin 600 MG Tablet PO ×2 (09:12→20:42)
[2021-02-23] MEDS: Lactulose 20 GM/30 ML UDC 10 GM PO ×2 (09:12→20:40)
[2021-02-23] MEDS: Folic Acid 1 MG Tablet PO (09:12)
[2021-02-23] MEDS: Estrogens,Conj. 0.625 MG Tablet PO (09:13)
--- NOTE | 2021-02-23 09:55 | CASEMGMT ---
Social Work BIMS and PHQ-9 completed for MDS assessment. Alissa Le, RECORDIST [employer]IEF [employer]BER
[2021-02-23 11:05] LABS: Bedside Glucose 125 mg/dL (70-110)
[2021-02-23 16:45] LABS: Bedside Glucose 113 mg/dL (70-110)
[2021-02-23] MEDS: Atorvastatin Calcium 10 MG Tablet PO (20:44)
--- NOTE | 2021-02-23 21:45 | NURSING ---
Pt refused to wear her trilogy for the night, states she tried to have her son take it home because it bothers the back of her head.
[2021-02-23 21:56] LABS: Bedside Glucose 126 mg/dL (70-110)
[2021-02-24] MEDS: Spironolactone 25 MG Tablet PO (06:05)
[2021-02-24] MEDS: Arthritis Pain Compound 60 CLICK TUBE TOPICAL (06:05)
[2021-02-24] MEDS: Menthol/Lanolin/Calamine/Znox 113 GM Tube 1 APPLIC TOPICAL (06:05)
[2021-02-24] MEDS: Colchicine 0.6 MG TABLET PO (06:06)
[2021-02-24] MEDS: Methylcellulose 2 GM Bottle PO (06:06)
[2021-02-24] MEDS: Fluticasone 0.05% 1 SPRAY NASAL.SRY 2 SPRAY NASAL (06:07)
[2021-02-24 06:08] VITALS: BP 128/51; PULSE 67; RESP 16; TEMP 36.2; O2SAT 96
[2021-02-24] MEDS: Montelukast 10 MG Tablet PO (06:08)
[2021-02-24] MEDS: Levothyroxine 75 MCG Tablet PO (06:08)
[2021-02-24] MEDS: FLUoxetine 20 MG Capsule 40 MG PO (06:08)
[2021-02-24] MEDS: Pantoprazole Sodium 20 MG Tablet PO (06:08)
[2021-02-24] MEDS: Furosemide 20 MG Tablet PO (06:08)
[2021-02-24] MEDS: Polyethylene Glycol 3350 17 GM PACKET PO (06:08)
[2021-02-24] MEDS: Nystatin Powder 15gm Bottle 1 APPLIC TOPICAL (06:08)
[2021-02-24 06:09] VITALS: BP 128/51; PULSE 67
[2021-02-24] MEDS: Metoprolol(XL)Succ 25 MG Tablet PO (06:09)
[2021-02-24] MEDS: Glucerna Shake 120 ML LIQUID PO (06:11)
[2021-02-24 06:26] LABS: Bedside Glucose 109 mg/dL (70-110)
[2021-02-24 07:20] VITALS: PULSE 70; RESP 18; O2SAT 95
[2021-02-24] MEDS: guaiFENesin 600 MG Tablet PO (08:20)
[2021-02-24] MEDS: Folic Acid 1 MG Tablet PO (08:20)
[2021-02-24] MEDS: Allopurinol 300 MG Tablet PO (08:20)
[2021-02-24] MEDS: metFORMIN HCl 500 MG Tablet PO (08:20)
[2021-02-24] MEDS: Lactulose 20 GM/30 ML UDC 10 GM PO (08:20)
[2021-02-24] MEDS: Isosorbide Mononitrate 60 MG Tablet PO (08:21)
[2021-02-24] MEDS: Aspirin 81 MG TAB.CHEW PO (08:21)
[2021-02-24] MEDS: Potassium Chloride Oral Tablet 20 MEQ PO (08:21)
[2021-02-24 09:11] VITALS: PULSE 69; RESP 18; O2SAT 95
[2021-02-24 09:39] VITALS: BP 121/59; PULSE 69; RESP 18; TEMP 36.6; O2SAT 95
== END 2021-02-24 10:32 | disposition home health service (06) | DRG 690 ==
PROVIDERS: Admitting Provider Family Medicine Geriatric Medicine; PCP Family Medicine; Visit Provider Family Medicine Geriatric Medicine
DX: N39.0 Urinary tract infection, site not specified (principal); Z16.12 Extended spectrum beta lactamase (ESBL) resistance; I50.42 Chronic combined systolic (congestive) and diastolic (congestive) heart failure; J96.10 Chronic respiratory failure, unspecified whether with hypoxia or hypercapnia; I42.8 Other cardiomyopathies; B96.20 Unspecified Escherichia coli [E. coli] as the cause of diseases classified elsewhere; I25.10 Atherosclerotic heart disease of native coronary artery without angina pectoris; K21.9 Gastro-esophageal reflux disease without esophagitis; I11.0 Hypertensive heart disease with heart failure; E11.9 Type 2 diabetes mellitus without complications; E03.9 Hypothyroidism, unspecified; E78.5 Hyperlipidemia, unspecified; F32.9 Major depressive disorder, single episode, unspecified; B35.4 Tinea corporis; E87.6 Hypokalemia; M10.9 Gout, unspecified; M19.90 Unspecified osteoarthritis, unspecified site; G47.33 Obstructive sleep apnea (adult) (pediatric); E66.9 Obesity, unspecified; Z86.711 Personal history of pulmonary embolism; Z87.891 Personal history of nicotine dependence; Z79.4 Long term (current) use of insulin; Z79.899 Other long term (current) drug therapy; Z86.718 Personal history of other venous thrombosis and embolism; Z68.32 Body mass index [BMI] 32.0-32.9, adult; Z79.82 Long term (current) use of aspirin
CPT/HCPCS: 36415; 73030; 76830; 80048; 82962; 85014; 85018; 85025; 87635; 94640; 97110; 97116; 97162; 97166; 97530; 97535; 97802; A4216; U0002

== ENCOUNTER 2021-03-22 12:44 | Outpatient (RCR) | payer MEDICARE, OTHER, SELFPAY ==
[2021-02-04 16:00] VITALS: BMI 32.8
[2021-03-01 15:43] LABS: Anion Gap 9 (5-15); BUN 27 mg/dL (7-18); BUN/Creat Ratio 21.6 RATIO (10-20); Calcium,Total 9.1 mg/dL (8.5-10.1); Chloride 102 mmol/L (98-107); Creatinine, Serum 1.25 mg/dL (0.55-1.02); EST Glomerular Filtration Rate 44 mL/min (>60); Est Glom Filt Rate - Afr Amer 53 mL/min (>60); Glucose 100 mg/dL (74-106); Potassium 4.3 mmol/L (3.5-5.1); Sodium Level 136 mmol/L (136-145)
[2021-03-08 13:34] LABS: Anion Gap 5 (5-15); BUN 23 mg/dL (7-18); BUN/Creat Ratio 19.3 RATIO (10-20); Calcium,Total 9.4 mg/dL (8.5-10.1); Chloride 106 mmol/L (98-107); Creatinine, Serum 1.19 mg/dL (0.55-1.02); EST Glomerular Filtration Rate 46 mL/min (>60); Est Glom Filt Rate - Afr Amer 56 mL/min (>60); Glucose 121 mg/dL (74-106); Potassium 4.7 mmol/L (3.5-5.1); Sodium Level 137 mmol/L (136-145)
[2021-03-15 15:30] LABS: Anion Gap 7 (5-15); BUN 23 mg/dL (7-18); BUN/Creat Ratio 18.7 RATIO (10-20); Calcium,Total 9.1 mg/dL (8.5-10.1); Chloride 104 mmol/L (98-107); Creatinine, Serum 1.23 mg/dL (0.55-1.02); EST Glomerular Filtration Rate 45 mL/min (>60); Est Glom Filt Rate - Afr Amer 54 mL/min (>60); Glucose 128 mg/dL (74-106); Potassium 3.8 mmol/L (3.5-5.1); Sodium Level 138 mmol/L (136-145)
[2021-03-22 13:12] LABS: Anion Gap 7 (5-15); BUN 22 mg/dL (7-18); BUN/Creat Ratio 17.5 RATIO (10-20); Calcium,Total 8.8 mg/dL (8.5-10.1); Chloride 104 mmol/L (98-107); Creatinine, Serum 1.26 mg/dL (0.55-1.02); EST Glomerular Filtration Rate 43 mL/min (>60); Est Glom Filt Rate - Afr Amer 53 mL/min (>60); Glucose 157 mg/dL (74-106); Potassium 4.3 mmol/L (3.5-5.1); Sodium Level 138 mmol/L (136-145)
== END 2021-03-22 18:00 | disposition home or self-care (01) ==
LOC: HHLAB 12:44
PROVIDERS: PCP Family Medicine; Referring Provider Family Medicine; Visit Provider Family Medicine
DX: L89.152 Pressure ulcer of sacral region, stage 2 (principal); N39.0 Urinary tract infection, site not specified; B96.20 Unspecified Escherichia coli [E. coli] as the cause of diseases classified elsewhere
CPT/HCPCS: 80048

== ENCOUNTER 2021-06-23 21:29 | Emergency (ER) | payer MEDICARE, OTHER, SELFPAY ==
[2021-06-23 21:29] VITALS: BP 133/112; PULSE 70; RESP 18; TEMP 35.9; O2SAT 100; BMI 31.7
--- NOTE | 2021-06-23 22:00 | EX.ED.DYSGE1 ---
HPI History of Present Illness Chief Complaint: Edema Informant: patient Onset/Context/Timing Onset: Days (5) Context: Gradual Onset Timing: Continuous Quality: Tightness Location: Bilateral lower legs Worsened by: Nothing Relieved by: Nothing Narrative Narrative: Patient presents with lower extremity swelling that has been getting worse over the past few days. Patient was started on Keflex 3 days ago. Patient states her legs feel tight. Patient states it is over both feet and both calves. Patient denies any fevers or chills. Patient is concerned there could be a blood clot in her legs. Patient denies any chest pain or shortness of breath. Patient admits to a cough. [facility] Medical History Anxiety and depression Atherosclerosis of coronary artery of [place] heart without angina pectoris Chronic diastolic (congestive) heart failure Chronic respiratory failure Chronic systolic (congestive) heart failure Diverticulosis Essential hypertension GERD (gastroesophageal reflux disease) History of deep venous thrombosis History of pulmonary embolism History of ST elevation myocardial infarction (STEMI) (04/2013) Hyperlipemia Hypothyroidism Morbid obesity Non-ischemic cardiomyopathy Nonrheumatic aortic (valve) stenosis Obstructive sleep apnea Osteoarthritis Right bundle branch block (RBBB) Secondary pulmonary arterial hypertension Type II diabetes mellitus Home Medications albuterol sulfate 2.5 mg INHALATION TID 06/05/19 [History Last Taken 01/29/21] aspirin 81 mg PO DAILY@0800 06/05/19 [History Last Taken 01/29/21] colchicine 0.6 mg PO PRN PRN 06/05/19 [History Last Taken Unknown] folic acid 1 mg PO DAILY 06/05/19 [History Last Taken 01/29/21] insulin regular human 10 units SUBCUT QHS 06/05/19 [History Last Taken 01/29/21] isosorbide mononitrate 60 mg PO BID 06/05/19 [History Last Taken 01/29/21] levothyroxine 75 mcg PO DAILY 06/05/19 [History Last Taken 01/29/21] metoprolol succinate 25 mg PO DAILY 06/05/19 [History Last Taken 01/29/21] nitroglycerin 0.4 mg SUBLINGUAL Q5M PRN 06/05/19 [History Last Taken Unknown] omeprazole 40 mg PO DAILY 06/05/19 [History Last Taken 01/29/21] polyethylene glycol 3350 17 g PO DAILY 06/05/19 [History Last Taken 01/29/21] simvastatin 20 mg PO QHS 06/05/19 [History Last Taken 01/29/21] methylcellulose (laxative) 850 g PO DAILY 06/29/19 [History Last Taken 01/29/21] allopurinol 300 mg tablet 300 mg PO DAILY tab 09/19/20 [History Last Taken 01/29/21] fluoxetine 40 mg capsule 40 cap PO DAILY 09/19/20 [History Last Taken 01/29/21] guaifenesin 600 mg tablet, extended release 12 hr 600 mg PO BID 09/19/20 [History Last Taken 01/29/21] conjugated estrogens 0.625 mg VAGINAL MOWEFR 01/30/21 [History Last Taken 01/27/21] lactulose 10 gm PO BID 01/30/21 [History Last Taken 01/29/21] montelukast 10 mg PO DAILY 01/30/21 [History Last Taken 01/29/21] furosemide 20 mg PO BIDLX 02/04/21 [History Last Taken Unknown] nystatin 1 applic TOPICAL BID 02/04/21 [History Last Taken Unknown] potassium chloride 40 meq PO BID 02/04/21 [History Last Taken Unknown] acetaminophen 1,000 mg PO Q6H PRN PRN tablet 02/16/21 [Rx Last Taken Unknown] fluticasone propionate 2 spray NASAL DAILY #1 02/16/21 [Rx Last Taken Unknown] menthol-zinc oxide 1 applic TOPICAL BID tube 02/16/21 [Rx Last Taken Unknown] metformin 500 mg PO BID #60 tablet 02/16/21 [Rx Last Taken Unknown] spironolactone 25 mg PO DAILY #30 tablet 02/16/21 [Rx Last Taken Unknown] cranberry 500 mg capsule 500 mg PO DAILY cap 03/20/21 [History Last Taken Unknown] Allergy/AdvReac Type Severity Reaction Status Date / Time Iodinated Contrast Media AdvReac Hives Verified 06/23/21 21:33 [CONTRASTS] Family History Mother Heart disease Surgical History H/O coronary artery bypass surgery (01/08/05) History of bilateral knee replacement History of cholecystectomy History of colectomy History of coronary artery stent placement (08/02/15) History of herniorrhaphy Social History Smoking Status: Former smoker ROS ROS ED Constitutional Constitutional ED: Denies chills or fever(s) Eyes Eyes: Denies blurry vision or change in vision ENT ENT ED: Reports rhinorrhea; Denies sore throat Cardiovascular Cardiovascular: Denies chest pain or palpitations Respiratory/Chest Respiratory/Chest: Reports cough; Denies dyspnea Gastrointestinal Gastrointestinal: Denies nausea or vomiting Genitourinary Genitourinary ED: Denies dysuria or hematuria Musculoskeletal Musculoskeletal: Denies back pain or neck pain Integumentary Reports abscess; Denies rash Neurologic Neurologic: Denies headache(s) or weakness Allergic/Immunologic Allergic/Immunologic ED: Denies mouth swelling or urticaria EXAM Physical Exam Const Vital Signs: 06/23/21 21:29 06/23/21 21:42 Temperature 96.7 F L Temperature Source Temporal Pulse Rate 70 Respiratory Rate 18 Respiratory Effort Normal Non-Labored Respiratory Pattern Normal Blood Pressure 133/112 H Blood Pressure Mean 119 Pulse Ox 100 Oxygen Delivery Method Room Air Positive well nourished and well developed General Appearance ED: well developed HEENT Reports moist mucous membranes Neck supple and no JVD Resp normal respiratory effort and clear to auscultation bilaterally Cardio regular rate and regular rhythm GI normal to inspection, nondistended, normoactive bowel sounds and non-tender Palpation: soft Extremity Extremity Narrative: There is tenderness edema, and erythema over the lower legs bilaterally. There is mild warmth. Pedal pulses are equal bilaterally. Sensation was intact to light touch in all digits. Capillary refill is less than 2 seconds in all digits. There is full range of motion of the lower extremities bilaterally. Neuro oriented x3, CN's II-XII intact bilaterally and no sensory deficits noted Sensorium / Orientation: alert Motor Exam: strength 5/5 throughout MDM MDM Lab Data Labs: Laboratory Results - last 24 hr 06/23/21 06/23/21 06/23/21 22:05 22:05 22:05 WBC 7.9 RBC 4.00 L Hgb 10.9 L Hct 34.9 L MCV 87.3 MCH 27.3 MCHC 31.2 L RDW Std Deviation 53.6 H RDW Coeff of Oscar 17.0 H Plt Count 215 MPV 11.6 Immature Gran % (Auto) 0.400 Neut % (Auto) 66.0 Lymph % (Auto) 14.2 L [place] % (Auto) 14.0 H Eos % (Auto) 3.8 Baso % (Auto) 1.6 H Absolute Neuts (auto) 5.2 Absolute Lymphs (auto) 1.12 Nucleated RBC % 0 D-Dimer Quant (PE/DVT) 0.89 H* Sodium 136 Potassium 4.7 Chloride 102 Carbon Dioxide 28.0 Anion Gap 6 BUN 18 Creatinine 1.17 H Estim Creat Clear Calc 33.12 Est GFR (MDRD) Af Amer 57 L Est GFR (MDRD) Non-Af 47 L BUN/Creatinine Ratio 15.4 Glucose 119 H Calcium 9.2 Total Bilirubin 0.50 AST 18 ALT 18 Alkaline Phosphatase 103 B-Natriuretic Peptide Total Protein 7.8 Albumin 3.2 Globulin 4.6 H Albumin/Globulin Ratio 0.7 L 06/23/21 22:05 WBC RBC Hgb Hct MCV MCH MCHC RDW Std Deviation RDW Coeff of Oscar Plt Count MPV Immature Gran % (Auto) Neut % (Auto) Lymph % (Auto) [place] % (Auto) Eos % (Auto) Baso % (Auto) Absolute Neuts (auto) Absolute Lymphs (auto) Nucleated RBC % D-Dimer Quant (PE/DVT) Sodium Potassium Chloride Carbon Dioxide Anion Gap BUN Creatinine Estim Creat Clear Calc Est GFR (MDRD) Af Amer Est GFR (MDRD) Non-Af BUN/Creatinine Ratio Glucose Calcium Total Bilirubin AST ALT Alkaline Phosphatase B-Natriuretic Peptide 377.4 H Total Protein Albumin Globulin Albumin/Globulin Ratio Discharge Plan Triage Chief Complaint: Edema ED Provider: Dane Kapadia Dx/Rx/DC Orders Clinical Impression: Peripheral edema Instructions: ED Peripheral Edema, Bilateral Prescriptions: No Action allopurinol 300 mg tablet 300 mg PO DAILY RF: 0 fluoxetine 40 mg capsule 40 cap PO DAILY RF: 0 guaifenesin [Mucinex] 600 mg tablet extended release 12hr 600 mg PO BID RF: 0 cranberry 500 mg capsule 500 mg PO DAILY RF: 0 albuterol sulfate 2.5 MG/3 ML solution for nebulization 2.5 mg inhalation TID RF: 0 omeprazole 40 MG capsule,delayed release(DR/EC) 40 mg PO DAILY RF: 0 levothyroxine 75 MCG tablet 75 mcg PO DAILY RF: 0 isosorbide mononitrate 60 MG tablet 60 mg PO BID RF: 0 simvastatin 20 MG tablet 20 mg PO QHS RF: 0 nitroglycerin 0.4 MG tablet, sublingual 0.4 mg sublingual Q5M PRN (Reason: Chest Pain) RF: 0 aspirin 81 MG tablet,chewable 81 mg PO DAILY@0800 RF: 0 folic acid 1 MG tablet 1 mg PO DAILY RF: 0 metoprolol succinate 25 MG tablet extended release 24 hr 25 mg PO DAILY RF: 0 colchicine 0.6 MG capsule 0.6 mg PO PRN PRN (Reason: gout) RF: 0 insulin regular human 100/ML solution 10 units subcut QHS RF: 0 polyethylene glycol 3350 17 GM packet 17 g PO DAILY RF: 0 methylcellulose (laxative) 479 GM powder 850 g PO DAILY RF: 0 conjugated estrogens 0.625 MG tablet 0.625 mg vaginal MOWEFR RF: 0 montelukast 10 MG tablet 10 mg PO DAILY RF: 0 lactulose 10 GM/15 ML solution 10 gm PO BID RF: 0 potassium chloride 20 MEQ tablet 40 meq PO BID RF: 0 furosemide 20 MG tablet 20 mg PO BIDLX RF: 0 nystatin 1 APPLIC bottle 1 applic TOPICAL BID RF: 0 acetaminophen 500 MG tablet 1,000 mg PO Q6H PRN PRN (Reason: Pain Score 1-10) RF: 0 menthol-zinc oxide 1 APPLIC ointment 1 applic TOPICAL BID RF: 0 metformin 500 MG tablet 500 mg PO BID Qty: 60 RF: 0 spironolactone 25 MG tablet 25 mg PO DAILY Qty: 30 RF: 0 fluticasone propionate 1 SPRAY spray,suspension 2 spray NASAL DAILY Qty: 1 RF: 0 Other Ambulatory Orders: Venous Duplex US - [place] Extrem (Routine) Facility: [facility] - Location: [facility] Ordered By: Dr. Dane Kapadia Primary Care Provider: Rommel Arango Referrals: Rommel Arango MD [Primary Care Provider] - Disposition Disposition: Home, Self Care
[2021-06-23 22:15] LABS: Absolute Lymphocyte Count 1.12 X10^3/uL (0.83-4.51); Absolute Neutrophil Count 5.2 X10^3/uL (2.0-7.7); Basophil# 0.13 X10^3/uL; Basophil% 1.6 % (0-1); Eosinophils% 3.8 % (0-5); Hematocrit 34.9 % (37-47); Hemoglobin 10.9 g/dL (12.0-15.0); Lymphocyte # 1.12 X10^3/ul (0.83-4.51); Lymphocyte % 14.2 % (19-41); Mean Corp Hgb Conc 31.2 g/dL (32-36); Mean Corpuscular Hgb 27.3 pg (27.0-32.0); Mean Corpuscular Volume 87.3 fL (81-99); Mean Platelet Vol. 11.6 fl (6.2-12.0); NRBC Flagged by Analyzer 0 % (0-5); Platelet Count 215 K/mm3 (150-450); RBC Distribution Width SD 53.6 fl (35.1-43.9); White Blood Count 7.9 K/mm3 (4.4-11.0)
[2021-06-23 22:32] LABS: ALB/GLOB Ratio 0.7 RATIO (0.9-2.4); AST(SGOT) 18 U/L (15-37); Alanine Aminotransfer ALT/SGPT 18 U/L (13-56); Albumin, Serum 3.2 g/dL (3.2-5.0); Alkaline Phosphatase 103 U/L (45-117); Anion Gap 6 (5-15); BUN 18 mg/dL (7-18); BUN/Creat Ratio 15.4 RATIO (10-20); Calcium,Total 9.2 mg/dL (8.5-10.1); Chloride 102 mmol/L (98-107); Creatinine, Serum 1.17 mg/dL (0.55-1.02); D-Dimer Quantitative (DVT/PE) 0.89 FEU/ug/m (0.27-0.49); EST Glomerular Filtration Rate 47 mL/min (>60); Est Glom Filt Rate - Afr Amer 57 mL/min (>60); Estimated Creatinine Clearance 33.12 ml/min; Globulin 4.6 g/dL (2.2-4.2); Glucose 119 mg/dL (74-106); Potassium 4.7 mmol/L (3.5-5.1); Protein, Total 7.8 g/dL (6.4-8.2); Sodium Level 136 mmol/L (136-145)
[2021-06-23 22:34] LABS: BNP,B-Type NATRIURETIC PEPTIDE 377.4 pg/mL (0-100)
[2021-06-23] MEDS: Enoxaparin 120 MG/0.8 ML Syringe SC (23:33)
--- NOTE | 2021-06-23 23:57 | ED.RN ---
Pt daughter (Devika) called in very upset with staff. Stating she is a nurse and thinks her mom should be getting a doppler at this time for bilateral legs. This nurse explained the process and pt daughter stating she was already told that by the doctor. Pt and daughter in room very thankful for care that was provided. Daughter on phone stating she will be calling first thing Friday morning to talk to someone. Pt was d/c and thanked this nurse several times and apologized numerous times.
== END 2021-06-24 00:01 | disposition home or self-care (01) ==
PROVIDERS: Emergency Provider Emergency Medicine; PCP Family Medicine
DX: R60.0 Localized edema (principal); I25.10 Atherosclerotic heart disease of native coronary artery without angina pectoris; I25.2 Old myocardial infarction; E11.9 Type 2 diabetes mellitus without complications; E03.9 Hypothyroidism, unspecified; E78.5 Hyperlipidemia, unspecified; K21.9 Gastro-esophageal reflux disease without esophagitis; I25.5 Ischemic cardiomyopathy; Z87.891 Personal history of nicotine dependence; Z86.718 Personal history of other venous thrombosis and embolism; Z86.711 Personal history of pulmonary embolism; Z79.4 Long term (current) use of insulin; Z79.899 Other long term (current) drug therapy
CPT/HCPCS: 80053; 83880; 85025; 85379; 96372; 99283; A4216

== ENCOUNTER → 2021-06-25 10:42 | Outpatient (CLI) | payer MEDICARE, OTHER, SELFPAY ==
--- NOTE | 2021-06-25 10:44 | VDLE_ITS ---
Reason For Study: Elevated D-dimer RIGHT LEFT GSV is normal. GSV is normal. CFV is compressible, spontaneous, phasic, CFV is compressible, spontaneous, phasic, competent and demonstrates normal competent, and demonstrates normal augmentation. augmentation. FV is compressible, spontaneous, phasic, FV is compressible, spontaneous, phasic, competent and demonstrates normal competent and demonstrates normal augmentation. augmentation. POP V is compressible, spontaneous, phasic, POP V is compressible, spontaneous, phasic, competent and demonstrates normal competent and demonstrates normal augmentation. augmentation. T/P Trunk is compressible. T/P Trunk is compressible. PTV is compressible. PTV is compressible. RT PerV is compressible. LT PerV is compressible. Procedure This is a venous duplex using B-mode, color flow and spectral Doppler. Exam performed in department. A preliminary report was called and/or faxed to PCP: Nba. Pt seen in ED 06/23/2021, done as next day ED scan. VL/Venous Duplex US - [place] Extrem Interpretation Summary Deep veins of the lower extremities are bilaterally patent and compressible seg mentally. There is no evidence of deep vein thrombosis on either side. Valvular competence appears in tact within the proximal deep venous systems bilaterally. The great saphenous veins appear bila terally patent and compressible segmentally. Ordering Physician: Dane Kapadia Referring Physician: Rommel Arango Performed By: Brenda Ventura RVT
== END ==
PROVIDERS: PCP Family Medicine; Referring Provider Emergency Medicine; Visit Provider Emergency Medicine
DX: M79.89 Other specified soft tissue disorders (principal)
CPT/HCPCS: 93970

== ENCOUNTER 2021-10-15 13:47 | Inpatient (IN) | payer MEDICARE, OTHER, SELFPAY ==
[2021-10-15] VITALS (14 sets, daily range): BP systolic 110–121; BP diastolic 55–63; PULSE 71–89; RESP 15–25; TEMP 36–37; O2SAT 87–99; BMI 32.5; BMI 30.8
--- NOTE | 2021-10-15 14:36 | EKG12_ITS ---
Test Reason : SOB Blood Pressure : / mmHG Vent. Rate : 083 BPM Atrial Rate : 083 BPM P-R Int : 236 ms QRS Dur : 140 ms QT Int : 412 ms P-R-T Axes : 065 -60 097 degrees QTc Int : 484 ms Sinus rhythm with 1st degree A-V block Left axis deviation Non-specific intra-ventricular conduction block T wave abnormality, consider lateral ischemia vs IVCD effect Abnormal ECG Confirmed by TOMI JULIAN, COURTNEY ([id number]), script editor LYNETTE FERNANDO ([id number]) on 10/17/2021 9:53:57 AM Referred By: REMY/HANNAH Confirmed By:COURTNEY KRISHNA MD
--- NOTE | 2021-10-15 14:50 | RAD_ITS ---
STUDY: X-RAY CHEST REASON FOR EXAM: Female, 81 years old. Cough TECHNIQUE: Single AP portable view of the chest. COMPARISON: Comparison is made with prior study dated 01/30/2021. FINDINGS: EKG electrodes are seen. Stable elevation of the right hemidiaphragm. Bilateral pulmonary infiltrates worse in the right upper lobe. Small left pleural effusion with left basilar infiltrate. Sternal cerclage wires and vascular clips are present from a prior sternotomy and coronary artery bypass graft procedure (CABG). Normal mediastinum and winifred. Normal visualized pulmonary arteries. Normal visualized aortic arch and descending thoracic aorta. There are diffuse degenerative changes of the visualized thoracic spine. There is degenerative osteoarthritis of the bilateral shoulders. There is no demonstrated abnormality of the visualized soft tissue structures of the upper abdomen. RAD/Chest 1 View (Portable) IMPRESSION: Bilateral pulmonary infiltrates with small left pleural effusion. Electronically Signed: Joe Peters MD at 15:14 EST , Service support ,
[2021-10-15 15:00] LABS: Absolute Lymphocyte Count 0.87 X10^3/uL (0.83-4.51); Absolute Neutrophil Count 6.2 X10^3/uL (2.0-7.7); Basophil# 0.14 X10^3/uL; Basophil% 1.7 % (0-1); Eosinophil# 0.25 X10^3/uL; Hematocrit 33.2 % (37-47); Hemoglobin 10.2 g/dL (12.0-15.0); Lymphocyte # 0.87 X10^3/ul (0.83-4.51); Lymphocyte % 10.4 % (19-41); Mean Corp Hgb Conc 30.7 g/dL (32-36); Mean Corpuscular Hgb 25.9 pg (27.0-32.0); Mean Corpuscular Volume 84.3 fL (81-99); Mean Platelet Vol. 11.5 fl (6.2-12.0); Monocyte# 0.87 X10^3/uL; Monocyte% 10.4 % (0-10); NRBC Flagged by Analyzer 0 % (0-5); Neutrophil # 6.19 X10^3/uL (2.7-7.7); Neutrophil % 74.1 % (47-70); Platelet Count 288 K/mm3 (150-450); RBC Distribution Width CV 16.9 % (11.6-14.6); RBC Distribution Width SD 51.8 fl (35.1-43.9); Red Blood Count 3.94 M/mm3 (4.2-5.4); White Blood Count 8.4 K/mm3 (4.4-11.0)
[2021-10-15 15:14] LABS: Anion Gap 7 (5-15); BUN 32 mg/dL (7-18); BUN/Creat Ratio 18.6 RATIO (10-20); Calcium,Total 9.5 mg/dL (8.5-10.1); Chloride 103 mmol/L (98-107); Creatinine, Serum 1.72 mg/dL (0.55-1.02); EST Glomerular Filtration Rate 30 mL/min (>60); Est Glom Filt Rate - Afr Amer 37 mL/min (>60); Estimated Creatinine Clearance 22.53 ml/min; Glucose 134 mg/dL (74-106); Potassium 5.4 mmol/L (3.5-5.1); Sodium Level 137 mmol/L (136-145); Troponin-I HS 104 pg/mL (3.0-54.0)
[2021-10-15] MEDS: Albuterol 2.5 MG/3 ML VIAL.NEB. INHALATION (15:14)
[2021-10-15 15:16] LABS: Lactic Acid 1.9 mmol/L (0.4-1.9)
[2021-10-15 15:23] LABS: BNP,B-Type NATRIURETIC PEPTIDE 885.2 pg/mL (0-100)
--- NOTE | 2021-10-15 16:12 | EDS_ITS ---
HPI History of Present Illness Chief Complaint: Shortness of Breath Narrative Narrative: Patient presenting for evaluation secondary to generalized weakness and shortness of breath. Patient has a underlying history of aortic valve disease, ejection fraction in the 50% range, hypertension, hyperlipidemia. Patient apparently has been dealing with increasing issues with shortness of breath. Patient recently completed a course of Levaquin by primary care. Patient's daughter reports that she try to get her up to have her run some errands with her today she was only able to make it a couple of steps before she became significantly weak and dyspneic and had to sit back down. Patient is on nighttime BiPAP with 2 L of oxygen the daughter states that her sats were in the 80s, so she placed her on supplemental oxygen and called for the patient to be brought to the emergency department. Patient denies any chest pain. She denies any increasing swelling of the legs. Patient denies that there has been fevers, but she has had some cough that is been productive of green sputum. Review of systems otherwise negative. [facility] Medical History Anxiety and depression Atherosclerosis of coronary artery of [place] heart without angina pectoris Chronic diastolic (congestive) heart failure Chronic respiratory failure Chronic systolic (congestive) heart failure Debility Depression Diverticulosis Essential hypertension [place] Gastroesophageal reflux disease GERD (gastroesophageal reflux disease) Gout History of deep venous thrombosis History of pulmonary embolism History of ST elevation myocardial infarction (STEMI) (04/2013) Hyperlipemia Hypoglycemia due to type 2 diabetes mellitus Hypothyroidism Hypothyroidism Insulin dependent diabetes mellitus Morbid obesity Non-ischemic cardiomyopathy Nonrheumatic aortic (valve) stenosis Obstructive sleep apnea Osteoarthritis Right bundle branch block (RBBB) Secondary pulmonary arterial hypertension Type II diabetes mellitus Home Medications albuterol sulfate 2.5 mg INHALATION TID 06/05/19 [History Last Taken 01/29/21] aspirin 81 mg PO DAILY@0800 06/05/19 [History Last Taken 01/29/21] colchicine 0.6 mg PO PRN PRN 06/05/19 [History Last Taken Unknown] folic acid 1 mg PO DAILY 06/05/19 [History Last Taken 01/29/21] insulin regular human 10 units SUBCUT QHS 06/05/19 [History Last Taken 01/29/21] isosorbide mononitrate 60 mg PO BID 06/05/19 [History Last Taken 01/29/21] levothyroxine 75 mcg PO DAILY 06/05/19 [History Last Taken 01/29/21] metoprolol succinate 25 mg PO DAILY 06/05/19 [History Last Taken 01/29/21] nitroglycerin 0.4 mg SUBLINGUAL Q5M PRN 06/05/19 [History Last Taken Unknown] omeprazole 40 mg PO DAILY 06/05/19 [History Last Taken 01/29/21] polyethylene glycol 3350 17 g PO DAILY 06/05/19 [History Last Taken 01/29/21] simvastatin 20 mg PO QHS 06/05/19 [History Last Taken 01/29/21] methylcellulose (laxative) 850 g PO DAILY 06/29/19 [History Last Taken 01/29/21] allopurinol 300 mg tablet 300 mg PO DAILY tab 09/19/20 [History Last Taken 01/29/21] fluoxetine 40 mg capsule 40 cap PO DAILY 09/19/20 [History Last Taken 01/29/21] guaifenesin 600 mg tablet, extended release 12 hr 600 mg PO BID 09/19/20 [History Last Taken 01/29/21] conjugated estrogens 0.625 mg VAGINAL MOWEFR 01/30/21 [History Last Taken 01/27/21] lactulose 10 gm PO BID 01/30/21 [History Last Taken 01/29/21] montelukast 10 mg PO DAILY 01/30/21 [History Last Taken 01/29/21] furosemide 20 mg PO BIDLX 02/04/21 [History Last Taken Unknown] nystatin 1 applic TOPICAL BID 02/04/21 [History Last Taken Unknown] potassium chloride 40 meq PO BID 02/04/21 [History Last Taken Unknown] acetaminophen 1,000 mg PO Q6H PRN PRN tablet 02/16/21 [Rx Last Taken Unknown] fluticasone propionate 2 spray NASAL DAILY #1 02/16/21 [Rx Last Taken Unknown] menthol-zinc oxide 1 applic TOPICAL BID tube 02/16/21 [Rx Last Taken Unknown] metformin 500 mg PO BID #60 tablet 02/16/21 [Rx Last Taken Unknown] spironolactone 25 mg PO DAILY #30 tablet 02/16/21 [Rx Last Taken Unknown] cranberry 500 mg capsule 500 mg PO DAILY cap 03/20/21 [History Last Taken Unknown] Allergy/AdvReac Type Severity Reaction Status Date / Time Iodinated Contrast Media AdvReac Hives Verified 10/15/21 13:49 [CONTRASTS] Family History Mother Heart disease Surgical History H/O coronary artery bypass surgery (01/08/05) History of bilateral knee replacement History of cholecystectomy History of colectomy History of coronary artery stent placement (08/02/15) History of herniorrhaphy Social History Smoking Status: Former smoker ROS ROS ED Constitutional Constitutional ED: Reports other Details: Generalized weakness ENT ENT ED: Denies rhinorrhea Cardiovascular Cardiovascular: Denies chest pain Respiratory/Chest Respiratory/Chest: Reports cough, dyspnea and sputum Gastrointestinal Gastrointestinal: Denies abdominal pain, diarrhea, nausea or vomiting Genitourinary Genitourinary ED: Denies dysuria or hematuria Musculoskeletal Musculoskeletal: Denies back pain Integumentary Denies rash Neurologic Neurologic: Denies paresthesias or weakness Psychiatric Psychiatric: Denies depression Endocrine Endocrinology: Denies fatigue Allergic/Immunologic Allergic/Immunologic ED: Denies urticaria EXAM Physical Exam Const Vital Signs: 10/15/21 13:49 10/15/21 13:50 10/15/21 13:53 Temperature 98.6 F 98.6 F Temperature Source Oral Oral Pulse Rate 83 89 Respiratory Rate 25 H 24 H Respiratory Effort Non-Labored Short of Breath Respiratory Pattern Blood Pressure 121/63 H 121/63 H Blood Pressure Mean 82 82 Pulse Ox 92 99 Oxygen Delivery Method Room Air Room Air Nasal Cannula Oxygen Flow Rate (L/min) 2 10/15/21 13:55 10/15/21 14:53 10/15/21 15:19 Temperature 98.6 F Temperature Source Oral Pulse Rate 89 89 81 Respiratory Rate 24 H 24 H 22 H Respiratory Effort Respiratory Pattern Tachypnea Blood Pressure 121/63 H 121/63 H Blood Pressure Mean 82 82 Pulse Ox 99 99 Oxygen Delivery Method Nasal Cannula Nasal Cannula Oxygen Flow Rate (L/min) 2 2 Positive well nourished and well developed Constitutional Narrative: Elderly female on supplemental oxygen with tachypnea but otherwise not in significant physiologic distress. General Appearance ED: well developed and NAD HEENT Reports moist mucous membranes Negative for trauma or tenderness Eyes EOMs intact bilaterally Neck no lymphadenopathy, supple and no JVD Chest Wall inspection of chest normal Resp Resp Narrative: Patient is tachypneic with rales on the bases bilaterally, no signs of retractions. Patient does have wheezing scattered throughout the lung vargas. Cardio regular rate, regular rhythm, no murmurs and peripheral pulses 2+ throughout GI normal to inspection, nondistended, normoactive bowel sounds, non-tender and no masses Palpation: soft Back/Spine normal to inspection Extremity normal to inspection Extremity Narrative: Trace bilateral lower extremity peripheral edema noted General Extremety ED: Yes edema; Negative for tenderness General Extremity: edema Neuro oriented x3 and no sensory deficits noted Sensorium / Orientation: alert Motor Exam: strength 5/5 throughout Psych mental status grossly normal Skin no rashes or lesions noted MDM MDM MDM Narrative Medical decision making narrative: Patient presented secondary to shortness of breath. She was noted to be hypoxic on arrival on room air she was placed on supplemental oxygen and had improvement. EKG was found to be unchanged. Chest x-ray by my personal review as well as radiology demonstrates bilateral infiltrates. Patient's coronavirus antigen test was noted to be negative. CBC does not demonstrate a leukocytosis, chemistry shows dehydration with a creatinine bump up to 1.7 which is above the patient's baseline. Lactic acid was normal. Troponin was elevated 104 BNP was elevated at 800. Patient has bilateral infiltrates and change in color of her sputum with shortness of breath and generalized weakness. Patient was empirically given vancomycin and Zosyn. I did send a PCR for confirmation as to whether or not the patient is negative for coronavirus. Patient does not really give a history that would be consistent with heart failure but that is also still on the differential. Patient requires admission at this point. Patient was discussed with the hospitalist. Lab Data Labs: Laboratory Results - last 24 hr 10/15/21 10/15/21 10/15/21 14:10 14:10 14:10 WBC 8.4 RBC 3.94 L Hgb 10.2 L Hct 33.2 L MCV 84.3 MCH 25.9 L MCHC 30.7 L RDW Std Deviation 51.8 H RDW Coeff of Oscar 16.9 H Plt Count 288 MPV 11.5 Immature Gran % (Auto) 0.400 Neut % (Auto) 74.1 H Lymph % (Auto) 10.4 L Adams % (Auto) 10.4 H Eos % (Auto) 3.0 Baso % (Auto) 1.7 H Absolute Neuts (auto) 6.2 Absolute Lymphs (auto) 0.87 Nucleated RBC % 0 Sodium 137 Potassium 5.4 H Chloride 103 Carbon Dioxide 27.0 Anion Gap 7 BUN 32 H Creatinine 1.72 H Estim Creat Clear Calc 22.53 Est GFR (MDRD) Af Amer 37 L Est GFR (MDRD) Non-Af 30 L BUN/Creatinine Ratio 18.6 Glucose 134 H Lactic Acid 1.9 Calcium 9.5 Troponin I High Sens 104 H B-Natriuretic Peptide 10/15/21 14:10 WBC RBC Hgb Hct MCV MCH MCHC RDW Std Deviation RDW Coeff of Oscar Plt Count MPV Immature Gran % (Auto) Neut % (Auto) Lymph % (Auto) Adams % (Auto) Eos % (Auto) Baso % (Auto) Absolute Neuts (auto) Absolute Lymphs (auto) Nucleated RBC % Sodium Potassium Chloride Carbon Dioxide Anion Gap BUN Creatinine Estim Creat Clear Calc Est GFR (MDRD) Af Amer Est GFR (MDRD) Non-Af BUN/Creatinine Ratio Glucose Lactic Acid Calcium Troponin I High Sens B-Natriuretic Peptide 885.2 H Radiography Diagnostic Testing: Clinical Impression(s) from Imaging Studies Chest X-Ray 10/15/21 14:50 IMPRESSION: Bilateral pulmonary infiltrates with small left pleural effusion. Electronically Signed: Joe Peters MD at 15:14 EST , Service support , EKG Initial EKG: Attestation: I personally reviewed and interpreted this EKG as follows: (Sinus rhythm of 83 with first-degree AV block SD interval is 236, T wave changes noted in leads I and aVL which were present on prior EKG. Left bundle branch block morphology is noted. No evidence of acute ischemic changes.) Discharge Plan Triage Chief Complaint: Shortness of Breath ED Provider: Rolf Amador Dx/Rx/DC Orders Clinical Impression: Bilateral pneumonia, JULISSA (acute kidney injury), Hypoxia Prescriptions: No Action allopurinol 300 mg tablet 300 mg PO DAILY RF: 0 fluoxetine 40 mg capsule 40 cap PO DAILY RF: 0 guaifenesin [Mucinex] 600 mg tablet extended release 12hr 600 mg PO BID RF: 0 cranberry 500 mg capsule 500 mg PO DAILY RF: 0 albuterol sulfate 2.5 MG/3 ML solution for nebulization 2.5 mg inhalation TID RF: 0 omeprazole 40 MG capsule,delayed release(DR/EC) 40 mg PO DAILY RF: 0 levothyroxine 75 MCG tablet 75 mcg PO DAILY RF: 0 isosorbide mononitrate 60 MG tablet 60 mg PO BID RF: 0 simvastatin 20 MG tablet 20 mg PO QHS RF: 0 nitroglycerin 0.4 MG tablet, sublingual 0.4 mg sublingual Q5M PRN (Reason: Chest Pain) RF: 0 aspirin 81 MG tablet,chewable 81 mg PO DAILY@0800 RF: 0 folic acid 1 MG tablet 1 mg PO DAILY RF: 0 metoprolol succinate 25 MG tablet extended release 24 hr 25 mg PO DAILY RF: 0 colchicine 0.6 MG capsule 0.6 mg PO PRN PRN (Reason: gout) RF: 0 insulin regular human 100/ML solution 10 units subcut QHS RF: 0 polyethylene glycol 3350 17 GM packet 17 g PO DAILY RF: 0 methylcellulose (laxative) 479 GM powder 850 g PO DAILY RF: 0 conjugated estrogens 0.625 MG tablet 0.625 mg vaginal MOWEFR RF: 0 montelukast 10 MG tablet 10 mg PO DAILY RF: 0 lactulose 10 GM/15 ML solution 10 gm PO BID RF: 0 potassium chloride 20 MEQ tablet 40 meq PO BID RF: 0 furosemide 20 MG tablet 20 mg PO BIDLX RF: 0 nystatin 1 APPLIC bottle 1 applic TOPICAL BID RF: 0 acetaminophen 500 MG tablet 1,000 mg PO Q6H PRN PRN (Reason: Pain Score 1-10) RF: 0 menthol-zinc oxide 1 APPLIC ointment 1 applic TOPICAL BID RF: 0 metformin 500 MG tablet 500 mg PO BID Qty: 60 RF: 0 spironolactone 25 MG tablet 25 mg PO DAILY Qty: 30 RF: 0 fluticasone propionate 1 SPRAY spray,suspension 2 spray NASAL DAILY Qty: 1 RF: 0 Primary Care Provider: Rommel Arango Referrals: Rommel Arango MD [Primary Care Provider] - Disposition Disposition: Acute Care [facility]
--- NOTE | 2021-10-15 16:12 | NURSING ---
MED SURG [facility] PNEUMON[facility]
[2021-10-15] MEDS: Piperacil/Tazobactam 3.375 GM Q8 PREMIX IV (17:00)
--- NOTE | 2021-10-15 18:34 | HP.PCM.HOS_ITS ---
[facility] - General General Date of Admission: 10/15/21 Date of Service: 10/15/21 Chief Complaint: SOB/cough HPI Narrative SHAWN FRIEDMAN, is a 81 F who presented to the emergency department [facility] on 10/15/2021 with a chief complaint of cough and shortness of breath. She reported that she has been having increased shortness of breath and cough for approximately 2 weeks and was given a Z-Mani without any resolve. She presents with her daughter and they report that she was out today at [facility] and that the patient was hardly able to ambulate 10 feet without becoming short of breath so she therefore took her home where they found her oxygen sats to be in the 80s [address] her on her home oxygen that she uses n octurnally with her CPAP. This did improve her oxygenation status and they subsequently brought her to the emergency department. She states she has had no fever or chills and feels well other than her cough and shortness of breath. Her sputum was initially white and frothy although she states as of the last 2 days it has been a little bit darker in color. She also notes some wheeze and states she typically gets this with heart failure. In the emergency department she was afebrile with a normal heart rate and blood pressure. Her respiratory rate was 20-25 and her oxygen saturations were 92% on room air. She was placed on 2 L nasal cannula with improvement of saturations to 99%. Her CBC shows a mild anemia with a hemoglobin of 10.2 but this is stable when compared to previous lab. Her white count is not elevated although she has a mild left shift at 74.1% neutrophils. Her BMP shows mild hyperkalemia at 5.4 her serum BUN and creatinine are elevated at 32 and 1.72 respectively. It appears her baseline serum creatinine is 1.15-3. Her lactic acid is 1.9. Her troponin was elevated at 104 and her BNP was elevated to 885.2. Her chest x-ray shows bilateral infiltrates with possible effusions. Clinically she has crackles at the bases to midway up her lung vargas bilaterally. She states she has been compliant with her fluid restriction and low-sodium diet. In the emergency department she was initially given antibiotics for suspected pneumonia although I think that this is more related to acute heart failure with the possibility of an overlapping pneumonia. [facility] Medical History Anxiety and depression Atherosclerosis of coronary artery of [place] heart without angina pectoris Chronic diastolic (congestive) heart failure Chronic respiratory failure Chronic systolic (congestive) heart failure Debility Depression Diverticulosis Essential hypertension Fall Gastroesophageal reflux disease GERD (gastroesophageal reflux disease) Gout History of deep venous thrombosis History of pulmonary embolism History of ST elevation myocardial infarction (STEMI) (04/2013) Hyperlipemia Hypoglycemia due to type 2 diabetes mellitus Hypothyroidism Hypothyroidism Insulin dependent diabetes mellitus Morbid obesity Non-ischemic cardiomyopathy Nonrheumatic aortic (valve) stenosis Obstructive sleep apnea Osteoarthritis Right bundle branch block (RBBB) Secondary pulmonary arterial hypertension Type II diabetes mellitus Home Medications albuterol sulfate 2.5 mg INHALATION TID 06/05/19 [History Last Taken 01/29/21] aspirin 81 mg PO DAILY@0800 06/05/19 [History Last Taken 01/29/21] colchicine 0.6 mg PO PRN PRN 06/05/19 [History Last Taken Unknown] folic acid 1 mg PO DAILY 06/05/19 [History Last Taken 01/29/21] isosorbide mononitrate 60 mg PO BID 06/05/19 [History Last Taken 01/29/21] levothyroxine 75 mcg PO DAILY 06/05/19 [History Last Taken 01/29/21] metoprolol succinate 25 mg PO DAILY 06/05/19 [History Last Taken 01/29/21] nitroglycerin 0.4 mg SUBLINGUAL Q5M PRN 06/05/19 [History Last Taken Unknown] omeprazole 40 mg PO DAILY 06/05/19 [History Last Taken 01/29/21] polyethylene glycol 3350 17 g PO DAILY 06/05/19 [History Last Taken 01/29/21] simvastatin 20 mg PO QHS 06/05/19 [History Last Taken 01/29/21] methylcellulose (laxative) 850 g PO DAILY 06/29/19 [History Last Taken 01/29/21] allopurinol 300 mg tablet 300 mg PO DAILY tab 09/19/20 [History Last Taken 01/29/21] fluoxetine 40 mg capsule 40 cap PO DAILY 09/19/20 [History Last Taken 01/29/21] guaifenesin 600 mg tablet, extended release 12 hr 600 mg PO BID PRN 09/19/20 [History Last Taken 01/29/21] conjugated estrogens 0.625 mg VAGINAL MOWEFR 01/30/21 [History Last Taken 01/27/21] montelukast 10 mg PO DAILY 01/30/21 [History Last Taken 01/29/21] furosemide 20 mg PO BIDLX 02/04/21 [History Last Taken Unknown] nystatin 1 applic TOPICAL BID 02/04/21 [History Last Taken Unknown] potassium chloride 40 meq PO BID 02/04/21 [History Last Taken Unknown] acetaminophen 1,000 mg PO Q6H PRN PRN tablet 02/16/21 [Rx Last Taken Unknown] fluticasone propionate 2 spray NASAL DAILY #1 02/16/21 [Rx Last Taken Unknown] menthol-zinc oxide 1 applic TOPICAL BID tube 02/16/21 [Rx Last Taken Unknown] metformin 500 mg PO BID #60 tablet 02/16/21 [Rx Last Taken Unknown] spironolactone 25 mg PO DAILY #30 tablet 02/16/21 [Rx Last Taken Unknown] cranberry 500 mg capsule 500 mg PO DAILY cap 03/20/21 [History Last Taken Unknown] insulin glargine [Lantus Solostar U-100 Insulin] 10 unit SUBCUT QPM 10/15/21 [History Last Taken Unknown] Allergy/AdvReac Type Severity Reaction Status Date / Time Iodinated Contrast Media AdvReac Hives Verified 10/15/21 13:49 [CONTRASTS] Family History Mother Heart disease Surgical History H/O coronary artery bypass surgery (01/08/05) History of bilateral knee replacement History of cholecystectomy History of colectomy History of coronary artery stent placement (08/02/15) History of herniorrhaphy Social History (Updated 10/15/21 @ 18:[address] Maida Smith DO) Smoking Status: Former smoker substance use type: does not use ROS Constitutional Constitutional: Denies anorexia, change in weight, chills, fatigue, fever(s), malaise, night sweats, weakness or other Eyes Eyes: Denies blurry vision, change in eye color, change in vision, discharge from eye(s), double vision, erythema, eye pain, loss of vision or other ENT HEENT: Denies abnormal hearing, dysphagia, ear pain, epistaxis, headache(s), hearing loss, nasal congestion, nasal discharge, post nasal drip, sinus pressure, sore throat or other Cardiovascular Cardiovascular: Reports dyspnea on exertion; Denies chest pain, claudication, edema, lightheadedness, orthopnea, palpitations, paroxysmal nocturnal dyspnea, rapid heart rate, syncope or other Respiratory/Chest Respiratory/Chest: Reports cough, dyspnea, productive cough, shortness of breath at rest, shortness of breath with exertion and wheezing Gastrointestinal Gastrointestinal: Denies abdominal pain, coffee ground emesis, constipation, diarrhea, dyspepsia, hematemesis, hematochezia, loose stools, melena, nausea, vomiting or other Genitourinary Genitourinary: Denies burning urination, difficulty urinating, dysuria, hematuria, nocturia, urinary frequency, urinary hesitancy, urinary incontinence, urinary urgency or other Neurologic Neurologic: Denies abnormal gait, abnormal speech, confusion, disequilibrium, dizziness, focal weakness, headache(s), numbness, paresthesias, seizure-like activity, seizures, syncope, tingling, tremor(s) or other Psychiatric Psychiatric: Denies anxiety, depression, homicidal ideation, suicidal ideation or other Endocrine Endocrinology: Denies change in body appearance, cold intolerance, excessive sweating, heat intolerance, polydipsia, polyuria or other Hematologic/Lymphatic Hematologic/Lymphatic: Denies anemia, easy bleeding, easy bruising, lymphadenopathy or other Allergic/Immunologic Allergic/Immunologic: Denies rhinitis, hives, eczemia, asthma or other Vital Signs Vital Signs Vital Signs: 10/15/21 13:49 10/15/21 13:50 10/15/21 13:53 Temperature 98.6 F 98.6 F Temperature Source Oral Oral Pulse Rate 83 89 Respiratory Rate 25 H 24 H Respiratory Effort Non-Labored Short of Breath Respiratory Pattern Blood Pressure 121/63 H 121/63 H Blood Pressure Mean 82 82 Blood Pressure Source Blood Pressure Position Blood Pressure Location Pulse Ox 92 99 Oxygen Delivery Method Room Air Room Air Nasal Cannula Oxygen Flow Rate (L/min) 2 10/15/21 13:55 10/15/21 14:53 10/15/21 15:19 Temperature 98.6 F Temperature Source Oral Pulse Rate 89 89 81 Respiratory Rate 24 H 24 H 22 H Respiratory Effort Respiratory Pattern Tachypnea Blood Pressure 121/63 H 121/63 H Blood Pressure Mean 82 82 Blood Pressure Source Blood Pressure Position Blood Pressure Location Pulse Ox 99 99 Oxygen Delivery Method Nasal Cannula Nasal Cannula Oxygen Flow Rate (L/min) 2 2 10/15/21 16:19 10/15/21 17:00 10/15/21 17:16 Temperature 98.3 F 98.2 F 96.8 F L Temperature Source Oral Oral Oral Pulse Rate 78 77 84 Respiratory Rate 20 H 15 20 H Respiratory Effort Respiratory Pattern Blood Pressure 121/63 H 115/57 L 120/62 Blood Pressure Mean 82 76 81 Blood Pressure Source Monitor Blood Pressure Position Semi-Fowlers Blood Pressure Location Right Forearm Pulse Ox 97 98 95 Oxygen Delivery Method Nasal Cannula Nasal Cannula Room Air Oxygen Flow Rate (L/min) 1 1 Weight Weight: 81.9 kg Body Mass Index (BMI) 30.8 Physical Exam Const alert, oriented x3 and no apparent distress Constitutional Narrative: Very pleasant elderly white female sitting up in bed, daughter is at the bedside, patient is nontoxic and very jovial on exam General Appearance: cooperative HEENT normocephalic, head/scalp atraumatic, hearing grossly normal bilaterally and moist oral mucous membranes HEENT Narrative: Dentition is fair, Mallampati is 2, no thrush Eyes PERRL, EOMs intact bilaterally and conjunctivae normal Eyes Narrative: No scleral icterus Neck no lymphadenopathy, supple and no carotid bruits Neck Narrative: Mild JVD, thyroid without enlargement, trachea midline Resp normal respiratory effort, no retractions and no use of accessory muscles Resp Narrative: Bilateral crackles to approximately long-term up the lung vargas with scattered inspiratory and expiratory wheeze that does not clear with cough Auscultation: crackles, rales and wheezes; Negative for rhonchi Cardio regular rate, regular rhythm, S1 normal heart sound, S2 normal heart sound, no rub, no gallops, no clicks and no JVD Cardio Narrative: 3 out of 6 systolic murmur GI normal to inspection, nondistended, normoactive bowel sounds, soft to palpation, non-tender and non-distended Extremity Extremity Narrative: Trace bilateral lower extremity pitting edema, no cyanosis or clubbing Peripheral Pulses: Yes pulses 2+ throughout Skin no rashes or lesions noted, no wounds, skin turgor normal, no jaundice, no petechiae and no mottling Neuro oriented x3, CN's II-XII intact bilaterally, moves all extremities and no focal motor deficits Neuro Narrative: Mild generalized weakness Sensorium / Orientation: awake, alert, oriented to person, oriented to place and oriented to time Speech: speech normal Psych affect normal Psych Narrative: Very pleasant Results Lab / Micro Data Result Diagrams: 10/15/21 14:10 10/15/21 14:10 Labs: Laboratory Results - last 24 hr 10/15/21 14:10: WBC 8.4, RBC 3.94 L, Hgb 10.2 L, Hct 33.2 L, MCV 84.3, MCH 25.9 L, MCHC 30.7 L, RDW Std Deviation 51.8 H, RDW Coeff of Oscar 16.9 H, Plt Count 288, MPV 11.5, Immature Gran % (Auto) 0.400, Neut % (Auto) 74.1 H, Lymph % ( Auto) 10.4 L, [place] % (Auto) 10.4 H, Eos % (Auto) 3.0, Baso % (Auto) 1.7 H, Absolute Neuts (auto) 6.2, Absolute Lymphs (auto) 0.87, Nucleated RBC % 0 10/15/21 14:10: Sodium 137, Potassium 5.4 H, Chloride 103, Carbon Dioxide 27.0, Anion Gap 7, BUN 32 H, Creatinine 1.72 H, Estim Creat Clear Calc 22.53, Est GFR (MDRD) Af Amer 37 L, Est GFR (MDRD) Non-Af 30 L, BUN/Creatinine Ratio 18.6, Glucose 134 H, Calcium 9.5, Troponin I High Sens 104 H 10/15/21 14:10: Lactic Acid 1.9 10/15/21 14:10: B-Natriuretic Peptide 885.2 H Micro: Microbiology 10/15/21 15:17 Mucosa - Nasopharyngeal Influenza Types A,B Direct FA (ALICIA) - Final 10/15/21 15:17 Nasal Secretion SARS-CoV-2 Antigen (Rapid) - Final Radiology Impression Chest X-Ray 10/15/21 14:50 IMPRESSION: Bilateral pulmonary infiltrates with small left pleural effusion. Electronically Signed: Joe Peters MD at 15:14 EST , Service support , Assessment & Plan Assessment/Plan (1) Acute respiratory failure with hypoxia: (2) Acute decompensated heart failure: (3) JULISSA (acute kidney injury): (4) Hyperkalemia: (5) Elevated troponin I level: PLAN: Acute hypoxic respiratory failure secondary to acute decompensated diastolic heart failure/+-pneumonia -Patient currently on 2 to 3 L nasal cannula to maintain saturations -Typically on room air at baseline -BNP is markedly elevated at 885.2 -Lasix 40 mg twice daily IV push -Check sputum culture -Check urine Legionella and strep pneumo antigens -Check viral respiratory panel -COVID-19 PCR is negative -Pulmonary toilet -Chest x-ray looks more like heart failure than pneumonia in my opinion -We will hold home Aldactone and potassium replacement with elevated potassium at this time -Repeat echocardiogram -Most recent echo from 12/10/2019 showed an EF of 55%, stage I diastolic dysfunction and a mean aortic valve gradient of 17 mmHg with mild aortic stenosis Troponin elevation -Suspect related to demand ischemia -We will cycle troponins -Check echocardiogram JULISSA -Suspect patient may be off the Starling curve -We will diurese and monitor serum creatinine closely -Patient does appear hypervolemic on exam -Repeat BMP in a.m. Hyperkalemia -Hold home potassium replacement -Hold home spironolactone CAD with history of CABG/hyperlipidemia/hypertension -Continue home aspirin -Continue home simvastatin -Continue metoprolol 25 mg daily -Continue isosorbide mononitrate twice daily Gout -Continue home scheduled allopurinol and colchicine as needed DM-2 -Continue Lantus 10 units at at bedtime -Hold oral oral antihyperglycemics -SSI -Accu-Cheks -Check hemoglobin the Hypothyroidism -Continue home levothyroxine -Check TSH GERD -Continue omeprazole Depression -Continue fluoxetine DVT prophylaxis -Heparin 3 times daily -SCDs CODE STATUS -DNR CCA no intubation Charges/Coding Visit Charges Inpatient E&M: 85783 Init Hosp L3
[2021-10-15] MEDS: 0.9% Saline Lock 10 ML Syringe IV (18:45)
[2021-10-15] MEDS: Furosemide 40 MG/4 ML Vial IV (18:45)
[2021-10-15 19:52] LABS: Troponin-I HS 110 pg/mL (3.0-54.0)
[2021-10-15] MEDS: Ipratropium/Albuterol Sulfate 3 ML AMPUL.NEB INHALATION ×2 (20:05→23:43)
[2021-10-15 21:17] LABS: Troponin-I HS 113 pg/mL (3.0-54.0)
[2021-10-15 21:50] LABS: Bedside Glucose 132 mg/dL (70-110)
[2021-10-15 21:59] LABS: M R Staph aureus DNA By PCR Negative (Negative); Probe Check PASS; Specimen Processing Control PASS
[2021-10-15] MEDS: Heparin Injection (Vial) 5,000 UNIT/ML VIAL 5000 UNIT SC (22:16)
[2021-10-15] MEDS: Isosorbide Mononitrate 60 MG Tablet PO (22:20)
[2021-10-15] MEDS: Atorvastatin Calcium 10 MG Tablet PO (22:23)
[2021-10-15] MEDS: guaiFENesin 600 MG Tablet PO (22:23)
[2021-10-15] MEDS: Lactulose 20 GM/30 ML UDC 10 GM PO (22:28)
[2021-10-16] VITALS (14 sets, daily range): BP systolic 107–132; BP diastolic 52–74; PULSE 55–96; RESP 18–20; TEMP 36.6–37.2; O2SAT 90–100
[2021-10-16] MEDS: Levothyroxine 75 MCG Tablet PO (05:03)
[2021-10-16] MEDS: Heparin Injection (Vial) 5,000 UNIT/ML VIAL 5000 UNIT SC ×3 (05:03→21:38)
--- NOTE | 2021-10-16 05:55 | ECHOCS_ITS ---
Reason For Study: CHF Procedure This was a 2D Doppler, Color Flow transthoracic echocardiogram. The study was technically difficult. Contrast injection was performed. Exam performed portable in patient room. Left Ventricle Normal LV size. Segmental dysfunction with preserved ejection fraction (see wall motion). The estimated ejection fraction is 55 %. Post operative septal motion. Mid-inferoseptal : Hypokinetic. Mid-anteroseptal : Hypokinetic. Right Ventricle Normal RV size. Normal systolic function. Atria The left atrium is moderately enlarged. Normal right atrium. No doppler evidence for ASD. Mitral Valve There is mild to moderate mitral annular calcification. Extension of the mitral annular calcification on the base of the posterior mitral valve leaflet. The mitral valve chordae are thickened and/or calcified. Mild (1+) mitral valve insufficiency. Tricuspid Valve Normal tricuspid valve. Mild tricuspid valve insufficiency. Right ventricular systolic pressure estimated to be 49 mmHg. Aortic Valve Trisinus/trileaflet aortic valve. Mild diffuse aortic valve thickening. Moderate diffuse aortic valve calcification. Moderate aortic stenosis. Mild (1+) aortic valve insufficiency. Pulmonic Valve The pulmonic valve is not well visualized. Mild (1+) pulmonic valve insufficiency. Great Vessels The aortic root is not well visualized. Pericardium/Pleural No pericardial effusion. Medication Definity3.0ml given slow IV push to enhance endocardial definition. MMode/2D Measurements & Calculations LVIDd: 5.5 cm IVSd: 0.98 cm LVOT diam: 2.3 cm LVIDs: 4.3 cm LVPWd: 0.99 cm FS: 20.6 % LVOT area: 4.2 cm2 LAV(MOD-bp): 118.2 ml LA A4 area: 30.8 cm2 LAV(MOD-bp) Indexed: 63.2 ml/m2 LAV(MOD-sp2): 114.6 ml LAV(MOD-sp4): 119.7 ml Time Measurements MV dec time: 0.14 sec Doppler Measurements & Calculations MV E max josemanuel: 108.7 cm/sec Lat Peak E' Joesmanuel: 5.8 cm/sec Med Peak E' Josemanuel: 4.3 cm/sec MV A max josemanuel: 60.2 cm/sec E/E' lat: 18.7 E/E' med: 25.3 MV E/A: 1.8 Ao V2 max: 289.0 cm/sec LV V1 max: 72.2 cm/sec SV(LVOT): 67.9 ml Ao max P.5 mmHg LV V1 max P.1 mmHg Ao V2 mean: 219.3 cm/sec LV V1 mean P.1 mmHg Ao mean P.7 mmHg LV V1 mean: 51.2 cm/sec Ao V2 VTI: 71.8 cm LV V1 VTI: 16.2 cm JOE(I,D): 0.95 cm2 JOE(V,D): 1.1 cm2 PA V2 max: 231.7 cm/sec TR max josemanuel: 337.5 cm/sec PA V2 mean: 165.6 cm/sec PI dec slope: 230.3 cm/sec2 TR max P.6 mmHg PA V2 VTI: 51.2 cm ECHO/Echo Complete W/ Contrast Interpretation Summary The study was technically difficult. Contrast injection was performed. Segmental dysfunction with preserved ejection fraction (see wall motion). The estimated ejection fraction is 55 %. Post operative septal motion. The left atrium is moderately enlarged. There is mild to moderate mitral annular calcification. Extension of the mitral annular calcification on the base of the posterior mitr al valve leaflet. The mitral valve chordae are thickened and/or calcified. Mild (1+) mitral valve insufficiency. Mild tricuspid valve insufficiency. Moderate aortic stenosis. Mild (1+) aortic valve insufficiency. Mild (1+) pulmonic valve insufficiency. Right ventricular systolic pressure estimated to be 49 mmHg. Transmitral diastolic flow velocities suggest diastolic dysfunction (pseudonorm al pattern). Ordering Physician: Maida Smith Referring Physician: Rommel Arango Performed By: Siobhan Slade, RADHA, RVT
[2021-10-16] MEDS: Ipratropium/Albuterol Sulfate 3 ML AMPUL.NEB INHALATION ×4 (06:41→19:00)
[2021-10-16 06:46] LABS: Absolute Lymphocyte Count 0.78 X10^3/uL (0.83-4.51); Absolute Neutrophil Count 5.2 X10^3/uL (2.0-7.7); Basophil# 0.13 X10^3/uL; Basophil% 1.7 % (0-1); Eosinophil# 0.39 X10^3/uL; Eosinophils% 5.2 % (0-5); Hematocrit 30.6 % (37-47); Hemoglobin 9.6 g/dL (12.0-15.0); Lymphocyte # 0.78 X10^3/ul (0.83-4.51); Lymphocyte % 10.4 % (19-41); Mean Corp Hgb Conc 31.4 g/dL (32-36); Mean Corpuscular Hgb 26.2 pg (27.0-32.0); Mean Corpuscular Volume 83.4 fL (81-99); Mean Platelet Vol. 11.4 fl (6.2-12.0); Monocyte# 0.98 X10^3/uL; NRBC Flagged by Analyzer 0 % (0-5); Neutrophil # 5.22 X10^3/uL (2.7-7.7); Neutrophil % 69.4 % (47-70); Platelet Count 263 K/mm3 (150-450); RBC Distribution Width CV 16.8 % (11.6-14.6); RBC Distribution Width SD 50.6 fl (35.1-43.9); Red Blood Count 3.67 M/mm3 (4.2-5.4); White Blood Count 7.5 K/mm3 (4.4-11.0)
[2021-10-16 06:55] LABS: Bedside Glucose 121 mg/dL (70-110)
[2021-10-16 07:24] LABS: Phosphorus 4.6 mg/dL (2.5-4.9)
[2021-10-16 07:52] LABS: ALB/GLOB Ratio 0.5 RATIO (0.9-2.4); AST(SGOT) 16 U/L (15-37); Alanine Aminotransfer ALT/SGPT 15 U/L (13-56); Albumin, Serum 2.7 g/dL (3.2-5.0); Alkaline Phosphatase 110 U/L (45-117); Anion Gap 10 (5-15); BUN 29 mg/dL (7-18); BUN/Creat Ratio 17.6 RATIO (10-20); Calcium,Total 9.1 mg/dL (8.5-10.1); Chloride 102 mmol/L (98-107); Creatinine, Serum 1.65 mg/dL (0.55-1.02); EST Glomerular Filtration Rate 32 mL/min (>60); Est Glom Filt Rate - Afr Amer 38 mL/min (>60); Estimated Creatinine Clearance 23.48 ml/min; Globulin 5.2 g/dL (2.2-4.2); Glucose 126 mg/dL (74-106); Magnesium 2.1 mg/dL (1.6-2.6); Potassium 3.9 mmol/L (3.5-5.1); Protein, Total 7.9 g/dL (6.4-8.2); Sodium Level 139 mmol/L (136-145); Thyroid Stim Hormone (TSH) 2.68 uIU/mL (0.358-3.74)
--- NOTE | 2021-10-16 08:12 | RAD_ITS ---
STUDY: X-RAY CHEST REASON FOR EXAM: Female, 81 years old. Pneumonia TECHNIQUE: Single AP portable view of the chest. COMPARISON: Comparison is made with prior study dated 10/15/2021. FINDINGS: EKG electrodes are seen. Stable elevation of the right hemidiaphragm. Persistent bilateral pulmonary infiltrates. There has been no change. Blunting of the left costophrenic angle. Sternal cerclage wires and vascular clips are present from a prior sternotomy and coronary artery bypass graft procedure (CABG). Cardiomegaly. Normal mediastinum and winifred. Normal visualized pulmonary arteries. There is atherosclerotic tortuosity of the aortic arch and descending thoracic aorta. There are diffuse degenerative changes of the visualized thoracic spine. There is degenerative osteoarthritis of the bilateral shoulders. There is no demonstrated abnormality of the visualized soft tissue structures of the upper abdomen. RAD/Chest 1 View (Portable) IMPRESSION: Stable examination. Electronically Signed: Joe Peters MD at 13:31 EST , Service support ,
[2021-10-16] MEDS: Aspirin 81 MG TAB.CHEW PO (09:50)
[2021-10-16] MEDS: FLUoxetine 20 MG Capsule 40 MG PO (09:50)
[2021-10-16] MEDS: guaiFENesin 600 MG Tablet PO ×2 (09:51→21:40)
[2021-10-16] MEDS: Lactulose 20 GM/30 ML UDC 10 GM PO ×2 (09:51→21:37)
[2021-10-16] MEDS: Montelukast 10 MG Tablet PO (09:51)
[2021-10-16] MEDS: Folic Acid 1 MG Tablet PO (09:51)
[2021-10-16] MEDS: Isosorbide Mononitrate 60 MG Tablet PO ×2 (09:51→21:39)
[2021-10-16] MEDS: Pantoprazole Sodium 40 MG Tablet PO (09:51)
[2021-10-16] MEDS: Metoprolol(XL)Succ 25 MG Tablet PO (09:51)
[2021-10-16] MEDS: Fluticasone 0.05% 1 SPRAY NASAL.SRY 2 SPRAY NASAL (09:52)
[2021-10-16] MEDS: Allopurinol 300 MG Tablet PO (09:53)
[2021-10-16] MEDS: Furosemide 40 MG/4 ML Vial IV ×2 (09:53→17:17)
[2021-10-16] MEDS: Polyethylene Glycol 3350 17 GM PACKET PO (09:53)
[2021-10-16] MEDS: 0.9% Saline Lock 10 ML Syringe IV ×2 (09:54→17:17)
[2021-10-16] MEDS: Insulin Lispro 100 UNIT/ML INSULN.PEN SC (12:15)
[2021-10-16 12:26] LABS: Bedside Glucose 166 mg/dL (70-110)
--- NOTE | 2021-10-16 12:51 | PN.HOSP_ITS ---
Documented by User: Mica Shukla NP-Zia 10/16/21 13:01 Subjective Subjective Patient seen and examined. Patient lying in bed no distress noted. Objective Data Objective Data Vital Signs: Vital Signs Temp Pulse Resp BP Pulse Ox 98.0 F 81 18 123/52 H 90 10/16/21 09:25 10/16/21 11:04 10/16/21 11:04 10/16/21 09:51 10/16/21 11:04 Oxygen Flow Rate (L/min) 2 Oxygen Delivery Method Room Air Weight: 179 lb 0.246 oz Body Mass Index (BMI) 30.8 Intake & Output: Intake and Output for Last 24 Hours 10/14/21 10/15/21 10/16/21 23:59 23:59 23:59 Intake Total 50 / 50 290 / 290 Output Total 1300 / 1300 400 / 400 Balance -1250 / -1250 -110 / -110 Lab / Micro Data Result Diagrams: 10/16/21 05:05 10/16/21 05:05 Labs: Laboratory Results - last 24 hr 10/15/21 14:10: WBC 8.4, RBC 3.94 L, Hgb 10.2 L, Hct 33.2 L, MCV 84.3, MCH 25.9 L, MCHC 30.7 L, RDW Std Deviation 51.8 H, RDW Coeff of Oscar 16.9 H, Plt Count 288, MPV 11.5, Immature Gran % (Auto) 0.400, Neut % (Auto) 74.1 H, Lymph % (Auto) 10.4 L, [place] % (Auto) 10.4 H, Eos % (Auto) 3.0, Baso % (Auto) 1.7 H, Absolute Neuts (auto) 6.2, Absolute Lymphs (auto) 0.87, Nucleated RBC % 0 10/15/21 14:10: Sodium 137, Potassium 5.4 H, Chloride 103, Carbon Dioxide 27.0, Anion Gap 7, BUN 32 H, Creatinine 1.72 H, Estim Creat Clear Calc 22.53, Est GFR (MDRD) Af Amer 37 L, Est GFR (MDRD) Non-Af 30 L, BUN/Creatinine Ratio 18.6, Glucose 134 H, Calcium 9.5, Troponin I High Sens 104 H 10/15/21 14:10: Lactic Acid 1.9 10/15/21 14:10: B-Natriuretic Peptide 885.2 H 10/15/21 16:04: COVID-19 (MELVIN) Not Detected 10/15/21 18:15: Troponin I High Sens 110 H 10/15/21 18:51: MRSA (PCR) Negative 10/15/21 20:42: Troponin I High Sens 113 H 10/15/21 21:09: POC Glucose 132 H 10/16/21 05:05: WBC 7.5, RBC 3.67 L, Hgb 9.6 L, Hct 30.6 L, MCV 83.4, MCH 26.2 L , MCHC 31.4 L, RDW Std Deviation 50.6 H, RDW Coeff of Oscar 16.8 H, Plt Count 263, MPV 11.4, Immature Gran % (Auto) 0.300, Neut % (Auto) 69.4, Lymph % (Auto) 10.4 L, [place] % (Auto) 13.0 H, Eos % (Auto) 5.2 H, Baso % (Auto) 1.7 H, Absolute Neuts (auto) 5.2, Absolute Lymphs (auto) 0.78 L, Nucleated RBC % 0 10/16/21 05:05: Sodium 139, Potassium 3.9, Chloride 102, Carbon Dioxide 27.0, Anion Gap 10, BUN 29 H, Creatinine 1.65 H, Estim Creat Clear Calc 23.48, Est GFR (MDRD) Af Amer 38 L, Est GFR (MDRD) Non-Af 32 L, BUN/Creatinine Ratio 17.6, Glucose 126 H, Calcium 9.1, Magnesium 2.1, Total Bilirubin 0.50, AST 16, ALT 15, Alkaline Phosphatase 110, Total Protein 7.9, Albumin 2.7 L, Globulin 5.2 H, Albumin/Globulin Ratio 0.5 L, TSH 2.68 10/16/21 05:05: Phosphorus 4.6 10/16/21 06:38: POC Glucose 121 H 10/16/21 12:10: POC Glucose 166 H Micro: Microbiology 10/15/21 16:04 Mucosa - Nasopharyngeal Respiratory Panel (PCR) - Final 10/15/21 21:17 Interface Orders Legionella Antigen - Final 10/15/21 21:17 Interface Orders Streptococcus pneumoniae Antigen (M - Final 10/15/21 15:17 Mucosa - Nasopharyngeal Influenza Types A,B Direct FA (ALICIA) - Final 10/15/21 15:17 Nasal Secretion SARS-CoV-2 Antigen (Rapid) - Final Radiography Diagnostic Testing: Radiology Impression Chest X-Ray 10/15/21 14:50 IMPRESSION: Bilateral pulmonary infiltrates with small left pleural effusion. Electronically Signed: Joe Peters MD at 15:14 EST , Service support , Echocardiogram 10/16/21 05:55 Interpretation Summary The study was technically difficult. Contrast injection was performed. Segmental dysfunction with preserved ejection fraction (see wall motion). The estimated ejection fraction is 55 %. Post operative septal motion. The left atrium is moderately enlarged. There is mild to moderate mitral annular calcification. Extension of the mitral annular calcification on the base of the posterior mitral valve leaflet. The mitral valve chordae are thickened and/or calcified. Mild (1+) mitral valve insufficiency. Mild tricuspid valve insufficiency. Moderate aortic stenosis. Mild (1+) aortic valve insufficiency. Mild (1+) pulmonic valve insufficiency. Right ventricular systolic pressure estimated to be 49 mmHg. Transmitral diastolic flow velocities suggest diastolic dysfunction (pseudonormal pattern). Ordering Physician: Maida Smith Referring Physician: Rommel Arango Performed By: Siobhan Slade, RADHA, RVT Physical Exam Const alert, oriented x3 and no apparent distress HEENT head/scalp atraumatic Head and Scalp: normocephalic Eyes conjunctivae normal and no scleral icterus Resp normal respiratory effort Auscultation: crackles bilateral base and wheezes expiratory wheezes and scattered wheezes Cardio regular rate, regular rhythm, S1 normal heart sound and S2 normal heart sound Heart Sounds: murmur systolic III/ GI normal to inspection, nondistended, normoactive bowel sounds, soft to palpation and non-tender Extremity normal to inspection, full ROM and no clubbing, cyanosis or edema Peripheral Pulses: Yes pulses 2+ throughout Skin no rashes or lesions noted, no wounds and skin turgor normal Neuro oriented x3, moves all extremities, no focal motor deficits and no sensory deficits noted Sensorium / Orientation: awake and alert Psych affect normal Assessment & Plan Assessment/Plan (1) Acute decompensated heart failure: PLAN: 1. Acute hypoxic respiratory failure -Resolved, patient currently on room air satting well -Patient baseline room air while awake and 2 L nasal cannula oxygen while s leeping --Legionella and strep urine negative, respiratory panel negative, influenza a and B-, Covid negative 2. Decompensated none diastolic heart failure -Continue IV Lasix -Continue incentive spirometry and Pep therapy -Echocardiogram demonstrates EF 55% with hypokinetic mid inferior septal and hypokinetic mid anteroseptal. EF is unchanged from prior studies 3. Elevated troponin -Echocardiogram unchanged from previous study -Likely secondary to demand ischemia 4. JULISSA -Mildly improved from 1.72-1.65 today -BMP ordered daily -Appears patient's baseline is approximately 1.2 5. Hyperkalemia -Potassium 3.9 today -BMP daily We will continue patient's medications in relation to chronic diseases unless otherwise stated above DVT prophylaxis-subcu heparin This patient was seen by KERLINE Chandra under the supervision of Dr. Cage. Documented by User: Dr. Moira Cage MD 10/16/21 14:55 Objective Data Lab / Micro Data Result Diagrams: 10/16/21 05:05 10/16/21 05:05 Charges/Coding Addendum Addendum: This patient was seen in conjunction with Giovanny Shukla NP. I have independently interviewed and examined the patient and reviewed pertinent historical, laboratory, and other data. I have reviewed her note and concur with her documentation Patient was seen and examined. She is off oxygen. She has bibasilar crackles. No fever seen. Physical Exam: Gen: Appears frail, not pale, not jaundiced CVS:HS I +II, regular, no murmurs RESP: Diminished, bilateral extensive crackles, especially at lung bases GI: BS present and normal, soft, nontender, no palpable organs EXT: Trace bilateral pedal edema ASSESSMENT: 1. Acute hypoxic respiratory failure 2. Acute exacerbation of heart failure with preserved EF, EF of 55% 3. Elevation of troponin 4. Acute kidney injury on CKD stage IIIa 5. Hyperkalemia 6. CAD status post CABG 7. Hyperlipidemia 8. Hypertension 9. Type II DM 10. Hypothyroidism 11. GERD 12. Depression Plan: Continue Lasix, CHF protocol Visit Charges Inpatient E&M: 23983 Subs Hosp L2
--- NOTE | 2021-10-16 13:20 | CASEMGMT ---
Addendum entered by Brenda Hyatt 10/16/21 15:34: Pt's daughter is inquiring about switching pt visitor as this she has to work [place] and does not want pt here alone. Anahi, PCU charge, updated, voices understanding but states policy is only one visitor per person. Ryan PAREDES updated, voices understanding. [place] REGGIE QUEVEDO Original Note: RN EMY Assessment: Face to Face with patient for initial transition planning/care coordination assessment. REGGIE QUEVEDO introduced self and role at [facility], pt/daughter voice understanding and consent to assessment. Per daughter, Steff, pt is hard of hearing and pt is fine with daughter answering questions. Pt is A/Ox 4. Pt is sitting up in bed on room air. Care providers, pharmacy, and demographics verified. Presentation: Pt c/o increased SOB Admitting dx: Bilat pna, CHF PCP: Nba Specialists: VIOLETTA rubio; Med, cardio; OB and uro at [facility] Preferred Pharmacy: [facility] Insurance: MCR A/B, [employer] Prescription Benefit: Yes Living Will/HPOA: Pt has LW/HPOA and is aware that they are on file at [facility]. Pt's daughter, Steff Betancourt, is HPOA. LNOK: Steff Betancourt, daughter/HPOA; Jerry Matias, son Living Arrangements: Pt lives alone in 1 story home with 2 steps in and states no concerns at home. Pt has family in and out of home most days and they assist with ADL's, if needed. Transportation: Pt family drives and states no transportation concerns. DME/HHC: Pt has the following DME: w/c, medical alert, walker, raised toilet seat, grab bars, walk in shower, NIV thru [employer], and 2L nc at bedtime with NIV. Pt/daughter state no need for any further DME. Pt has had [facility]HC in past and been to TCU. Pt/daughter state no concerns with pt going home at discharge. Pt is retired. Pt does not smoke cigarettes or drink ETOH. Pt/daughter state no further concerns/needs. CM to follow for home oxygen need and any further discharge planning/needs. Advised pt/daughter to ask for CM if any further questions/concerns/needs arise, voices understanding. Pt goal: Home Plan: Home, pending home oxygen testing/therapy evals. Jerome PAREDES CM
--- NOTE | 2021-10-16 14:16 | CHAPLAIN ---
Type of Pastoral Visit _x__ Initial Visit ___ Follow-up Visit ___ On-call Visit ___ General Patient Visit ___ Spiritual Assessment ___ Family Conference ___ Bereavement ___ Rapid Response ___ Code Blue ___ Other (describe below) Pastoral Care Referral From _x__ Patient ___ Family ___ Nurse ___ Physician ___ Dielectric Embossing Machine Operator ___ Research Project Coordinator ___ Other (describe below) Sacrament/Intervention _x__ Active listening ___ Anointing ___ Sikhism ___ Bereavement ___ Communion _x__ Sirena exploration ___ _x__ Life review _x__ Prayer ___ Reconciliation ___ Sacrament of Sick _x__ Supportive presence ___ Wedding ___ Other (describe below) Pastoral Comments talkative and welcoming
[2021-10-16 17:25] LABS: Bedside Glucose 124 mg/dL (70-110)
[2021-10-16] MEDS: Atorvastatin Calcium 10 MG Tablet PO (21:41)
[2021-10-16 21:51] LABS: Bedside Glucose 187 mg/dL (70-110)
[2021-10-17] VITALS (15 sets, daily range): BP systolic 112–119; BP diastolic 48–65; PULSE 7–89; RESP 14–20; TEMP 36.8–37.3; O2SAT 92–99
[2021-10-17] MEDS: Heparin Injection (Vial) 5,000 UNIT/ML VIAL 5000 UNIT SC ×3 (05:51→21:05)
[2021-10-17] MEDS: Levothyroxine 75 MCG Tablet PO (05:52)
[2021-10-17 06:08] LABS: Absolute Lymphocyte Count 0.86 X10^3/uL (0.83-4.51); Absolute Neutrophil Count 6.1 X10^3/uL (2.0-7.7); Basophil# 0.17 X10^3/uL; Basophil% 1.9 % (0-1); Eosinophil# 0.54 X10^3/uL; Eosinophils% 6.1 % (0-5); Hematocrit 30.7 % (37-47); Hemoglobin 9.7 g/dL (12.0-15.0); Lymphocyte # 0.86 X10^3/ul (0.83-4.51); Lymphocyte % 9.8 % (19-41); Mean Corp Hgb Conc 31.6 g/dL (32-36); Mean Corpuscular Hgb 26.1 pg (27.0-32.0); Mean Corpuscular Volume 82.5 fL (81-99); Mean Platelet Vol. 11.2 fl (6.2-12.0); Monocyte# 1.09 X10^3/uL; Monocyte% 12.4 % (0-10); NRBC Flagged by Analyzer 0 % (0-5); Neutrophil % 69.5 % (47-70); Platelet Count 264 K/mm3 (150-450); RBC Distribution Width CV 16.7 % (11.6-14.6); RBC Distribution Width SD 49.7 fl (35.1-43.9); Red Blood Count 3.72 M/mm3 (4.2-5.4); White Blood Count 8.8 K/mm3 (4.4-11.0)
[2021-10-17 06:37] LABS: Anion Gap 6 (5-15); BUN 26 mg/dL (7-18); BUN/Creat Ratio 21.1 RATIO (10-20); Calcium,Total 8.8 mg/dL (8.5-10.1); Chloride 98 mmol/L (98-107); Creatinine, Serum 1.23 mg/dL (0.55-1.02); EST Glomerular Filtration Rate 45 mL/min (>60); Est Glom Filt Rate - Afr Amer 54 mL/min (>60); Glucose 101 mg/dL (74-106); Potassium 3.9 mmol/L (3.5-5.1); Sodium Level 135 mmol/L (136-145)
[2021-10-17 06:50] LABS: Bedside Glucose 104 mg/dL (70-110)
[2021-10-17] MEDS: Ipratropium/Albuterol Sulfate 3 ML AMPUL.NEB INHALATION ×5 (07:20→23:40)
[2021-10-17] MEDS: FLUoxetine 20 MG Capsule 40 MG PO (08:37)
[2021-10-17] MEDS: Allopurinol 300 MG Tablet PO (08:37)
[2021-10-17] MEDS: Polyethylene Glycol 3350 17 GM PACKET PO (08:37)
[2021-10-17] MEDS: Isosorbide Mononitrate 60 MG Tablet PO ×2 (08:38→21:07)
[2021-10-17] MEDS: Montelukast 10 MG Tablet PO (08:38)
[2021-10-17] MEDS: guaiFENesin 600 MG Tablet PO ×2 (08:38→21:08)
[2021-10-17] MEDS: Furosemide 40 MG/4 ML Vial IV ×3 (08:38→21:10)
[2021-10-17] MEDS: Aspirin 81 MG TAB.CHEW PO ×2 (08:38→08:39)
[2021-10-17] MEDS: Metoprolol(XL)Succ 25 MG Tablet PO (08:38)
[2021-10-17] MEDS: Pantoprazole Sodium 40 MG Tablet PO (08:38)
[2021-10-17] MEDS: 0.9% Saline Lock 10 ML Syringe IV ×3 (08:40→21:11)
[2021-10-17] MEDS: Fluticasone 0.05% 1 SPRAY NASAL.SRY 2 SPRAY NASAL (08:42)
[2021-10-17] MEDS: Lactulose 20 GM/30 ML UDC 10 GM PO ×2 (08:42→21:04)
[2021-10-17] MEDS: Folic Acid 1 MG Tablet PO (08:42)
[2021-10-17] MEDS: Insulin Lispro 100 UNIT/ML INSULN.PEN SC (11:30)
[2021-10-17 12:05] LABS: Bedside Glucose 170 mg/dL (70-110)
--- NOTE | 2021-10-17 13:16 | PN.HOSP_ITS ---
Documented by User: Mica Shukla NP-C 10/17/21 13:20 Subjective Subjective Patient seen and examined. Patiently sitting in chair no distress noted. Patient currently on 2 L nasal cannula oxygen. Objective Data Objective Data Vital Signs: Vital Signs Temp Pulse Resp BP Pulse Ox 98.6 F 7 L 20 H 119/65 98 10/17/21 08:45 10/17/21 11:03 10/17/21 11:03 10/17/21 08:45 10/17/21 08:45 Oxygen Flow Rate (L/min) 2 Oxygen Delivery Method Nasal Cannula Weight: 179 lb 0.246 oz Body Mass Index (BMI) 30.8 Intake & Output: Intake and Output for Last 24 Hours 10/15/21 10/16/21 10/17/21 23:59 23:59 23:59 Intake Total 50 / 50 785 / 1185 400 / 400 Output Total 1300 / 1300 1150 / 1850 1600 / 1600 Balance -1250 / -1250 -365 / -665 -1200 / -1200 Lab / Micro Data Result Diagrams: 10/17/21 05:04 10/17/21 05:04 Labs: Laboratory Results - last 24 hr 10/16/21 17:15: POC Glucose 124 H 10/16/21 21:35: POC Glucose 187 H 10/17/21 05:04: WBC 8.8, RBC 3.72 L, Hgb 9.7 L, Hct 30.7 L, MCV 82.5, MCH 26.1 L , MCHC 31.6 L, RDW Std Deviation 49.7 H, RDW Coeff of Oscar 16.7 H, Plt Count 264, MPV 11.2, Immature Gran % (Auto) 0.300, Neut % (Auto) 69.5, Lymph % (Auto) 9.8 L , [place] % (Auto) 12.4 H, Eos % (Auto) 6.1 H, Baso % (Auto) 1.9 H, Absolute Neuts (auto) 6.1, Absolute Lymphs (auto) 0.86, Nucleated RBC % 0 10/17/21 05:04: Sodium 135 L, Potassium 3.9, Chloride 98, Carbon Dioxide 31.0, Anion Gap 6, BUN 26 H, Creatinine 1.23 H, Estim Creat Clear Calc 31.50, Est GFR (MDRD) Af Amer 54 L, Est GFR (MDRD) Non-Af 45 L, BUN/Creatinine Ratio 21.1 H, Glucose 101, Calcium 8.8 10/17/21 06:43: POC Glucose 104 10/17/21 11:27: POC Glucose 170 H Micro: Microbiology 10/15/21 15:23 Blood Culture (Wb) #2 - Right Forearm Blood Culture - Preliminary No growth in 48 hours. 10/15/21 14:10 Blood Culture (Wb) - Anticubital Left Blood Culture - Preliminary No growth in 48 hours. 10/15/21 16:04 Mucosa - Nasopharyngeal Respiratory Panel (PCR) - Final 10/15/21 21:17 Interface Orders Legionella Antigen - Final 10/15/21 21:17 Interface Orders Streptococcus pneumoniae Antigen (M - Final 10/15/21 15:17 Mucosa - Nasopharyngeal Influenza Types A,B Direct FA (ALICIA) - Final 10/15/21 15:17 Nasal Secretion SARS-CoV-2 Antigen (Rapid) - Final Radiography Diagnostic Testing: Radiology Impression Chest X-Ray 10/16/21 08:12 IMPRESSION: Stable examination. Electronically Signed: Joe Peters MD at 13:31 EST , Service support , Physical Exam Const alert, oriented x3 and no apparent distress General Appearance: cooperative HEENT normocephalic, head/scalp atraumatic, hearing grossly normal bilaterally and moist oral mucous membranes Eyes conjunctivae normal and no scleral icterus Neck no lymphadenopathy, supple and no carotid bruits General: trachea midline Resp normal respiratory effort Auscultation: crackles bilateral base and rales Cardio regular rate, regular rhythm, S1 normal heart sound and S2 normal heart sound Cardio Narrative: 3 out of 6 systolic murmur Heart Sounds: murmur systolic III/ GI normal to inspection, nondistended, normoactive bowel sounds, soft to palpation and non-tender Extremity normal to inspection, full ROM and no clubbing, cyanosis or edema Extremity Narrative: Trace bilateral lower extremity pitting edema, no cyanosis or clubbing Skin no rashes or lesions noted, no wounds and skin turgor normal Neuro oriented x3, moves all extremities, no focal motor deficits and no sensory deficits noted Neuro Narrative: Mild generalized weakness Sensorium / Orientation: awake and alert Speech: speech normal Psych affect normal Psych Narrative: Very pleasant Assessment & Plan Assessment/Plan (1) Acute decompensated heart failure: PLAN: 1. Acute hypoxic respiratory failure -Resolved, patient currently on room air satting well -Patient baseline room air while awake and 2 L nasal cannula oxygen while sleeping -Legionella and strep urine negative, respiratory panel negative, influenza a and B-, Covid negative 2. Decompensated none diastolic heart failure -Lasix IV increased to 3 times daily -Continue incentive spirometry and Pep therapy -Echocardiogram demonstrates EF 55% with hypokinetic mid inferior septal and hypokinetic mid anteroseptal. EF is unchanged from prior studies 3. Elevated troponin -Echocardiogram unchanged from previous study -Likely secondary to demand ischemia 4. JULISSA -Mildly improved, 1.23 today -BMP ordered daily -Appears patient's baseline is approximately 1.2 5. Hyperkalemia -Potassium 3.9 today -BMP daily We will continue patient's medications in relation to chronic diseases unless otherwise stated above DVT prophylaxis-subcu heparin This patient was seen by Mica Shukla NP-C under the supervision of Dr. Cage. Documented by User: Dr. Moira Cage MD 10/17/21 13:39 Objective Data Lab / Micro Data Result Diagrams: 10/17/21 05:04 10/17/21 05:04 Charges/Coding Addendum Addendum: This patient was seen in conjunction with Giovanny Shukla NP. I have independently interviewed and examined the patient and reviewed pertinent historical, laboratory, and other data. I have reviewed her note and concur with her documentation Patient was seen and examined. Overnight, patient was put on 2L oxygen. She appears more comfortable Physical Exam: Gen: Appears frail, not pale, not jaundiced CVS:HS I +II, regular, no murmurs RESP: Diminished, bilateral extensive crackles, especially at lung bases GI: BS present and normal, soft, nontender, no palpable organs EXT: Trace bilateral pedal edema ASSESSMENT: 1. Acute hypoxic respiratory failure 2. Acute exacerbation of heart failure with preserved EF, EF of 55% 3. Elevation of troponin 4. Acute kidney injury on CKD stage IIIa 5. Hyperkalemia 6. CAD status post CABG 7. Hyperlipidemia 8. Hypertension 9. Type II DM 10. Hypothyroidism 11. GERD 12. Depression Plan: Continue Lasix, CHF protocol, fluid restriction Visit Charges Inpatient E&M: 41784 Subs Hosp L2
[2021-10-17 16:41] LABS: Bedside Glucose 145 mg/dL (70-110)
[2021-10-17] MEDS: Atorvastatin Calcium 10 MG Tablet PO (21:08)
[2021-10-17 22:06] LABS: Bedside Glucose 251 mg/dL (70-110)
[2021-10-18] VITALS (9 sets, daily range): BP systolic 114–127; BP diastolic 57–61; PULSE 72–96; RESP 14–18; TEMP 35.6–37; O2SAT 94–99
[2021-10-18] MEDS: Heparin Injection (Vial) 5,000 UNIT/ML VIAL 5000 UNIT SC (06:28)
[2021-10-18] MEDS: Furosemide 40 MG/4 ML Vial IV (06:28)
[2021-10-18] MEDS: Levothyroxine 75 MCG Tablet PO (06:29)
[2021-10-18 06:55] LABS: Bedside Glucose 144 mg/dL (70-110)
[2021-10-18 06:56] LABS: Absolute Neutrophil Count 5.9 X10^3/uL (2.0-7.7); Basophil# 0.15 X10^3/uL; Basophil% 1.7 % (0-1); Eosinophil# 0.59 X10^3/uL; Eosinophils% 6.7 % (0-5); Hematocrit 31.8 % (37-47); Lymphocyte % 10.2 % (19-41); Mean Corp Hgb Conc 31.4 g/dL (32-36); Mean Corpuscular Volume 82.6 fL (81-99); Mean Platelet Vol. 11.6 fl (6.2-12.0); Monocyte# 1.21 X10^3/uL; Monocyte% 13.8 % (0-10); NRBC Flagged by Analyzer 0 % (0-5); Neutrophil # 5.92 X10^3/uL (2.7-7.7); Neutrophil % 67.3 % (47-70); Platelet Count 266 K/mm3 (150-450); RBC Distribution Width CV 16.8 % (11.6-14.6); RBC Distribution Width SD 49.5 fl (35.1-43.9); Red Blood Count 3.85 M/mm3 (4.2-5.4); White Blood Count 8.8 K/mm3 (4.4-11.0)
[2021-10-18 07:17] LABS: Anion Gap 10 (5-15); BUN 27 mg/dL (7-18); BUN/Creat Ratio 21.6 RATIO (10-20); Calcium,Total 8.8 mg/dL (8.5-10.1); Chloride 98 mmol/L (98-107); Creatinine, Serum 1.25 mg/dL (0.55-1.02); EST Glomerular Filtration Rate 44 mL/min (>60); Est Glom Filt Rate - Afr Amer 53 mL/min (>60); Glucose 128 mg/dL (74-106); Potassium 3.6 mmol/L (3.5-5.1); Sodium Level 138 mmol/L (136-145)
[2021-10-18] MEDS: Ipratropium/Albuterol Sulfate 3 ML AMPUL.NEB INHALATION ×2 (07:17→10:29)
[2021-10-18 07:22] LABS: Magnesium 2.3 mg/dL (1.6-2.6)
[2021-10-18] MEDS: Folic Acid 1 MG Tablet PO (08:56)
[2021-10-18] MEDS: Polyethylene Glycol 3350 17 GM PACKET PO (08:56)
[2021-10-18] MEDS: FLUoxetine 20 MG Capsule 40 MG PO (08:57)
[2021-10-18] MEDS: guaiFENesin 600 MG Tablet PO (08:57)
[2021-10-18] MEDS: Allopurinol 300 MG Tablet PO (08:57)
[2021-10-18] MEDS: Isosorbide Mononitrate 60 MG Tablet PO (08:57)
[2021-10-18] MEDS: Pantoprazole Sodium 40 MG Tablet PO (08:58)
[2021-10-18] MEDS: Montelukast 10 MG Tablet PO (08:58)
[2021-10-18] MEDS: Fluticasone 0.05% 1 SPRAY NASAL.SRY 2 SPRAY NASAL (08:58)
[2021-10-18] MEDS: Lactulose 20 GM/30 ML UDC 10 GM PO (08:58)
[2021-10-18] MEDS: Metoprolol(XL)Succ 25 MG Tablet PO (08:59)
--- NOTE | 2021-10-18 11:09 | PCM.DC.SUM ---
Providers Date of Admission: 10/15/21 Date of Discharge: 10/18/21 Primary Care Physician: Dr. Rommel Arango MD Reason For Visit: BILATERAL PNEUMONIA Diagnosis Discharge Diagnosis (1) Acute decompensated heart failure: Status: Acute Code(s): I50.9 - Heart failure, unspecified (2) Acute respiratory failure with hypoxia: Status: Acute Code(s): J96.01 - Acute respiratory failure with hypoxia (3) Elevated troponin I level: Status: Acute Code(s): R77.8 - Other specified abnormalities of plasma proteins (4) JULISSA (acute kidney injury): Status: Acute Code(s): N17.9 - Acute kidney failure, unspecified (5) Hyperlipemia: Status: Chronic Code(s): E78.5 - Hyperlipidemia, unspecified (6) Essential hypertension: Status: Chronic Code(s): I10 - Essential (primary) hypertension (7) Hyperkalemia: Status: Acute Code(s): E87.5 - Hyperkalemia Medications at Discharge Home Medications albuterol sulfate 2.5 mg INHALATION TID 06/05/19 aspirin 81 mg PO DAILY@0800 06/05/19 colchicine 0.6 mg PO PRN PRN 06/05/19 folic acid 1 mg PO DAILY 06/05/19 isosorbide mononitrate 60 mg PO BID 06/05/19 levothyroxine 75 mcg PO DAILY 06/05/19 metoprolol succinate 25 mg PO DAILY 06/05/19 nitroglycerin 0.4 mg SUBLINGUAL Q5M PRN 06/05/19 omeprazole 40 mg PO DAILY 06/05/19 polyethylene glycol 3350 17 g PO DAILY 06/05/19 simvastatin 20 mg PO QHS 06/05/19 methylcellulose (laxative) 850 g PO DAILY 06/29/19 allopurinol 300 mg tablet 300 mg PO DAILY tab 09/19/20 fluoxetine 40 mg capsule 40 cap PO DAILY 09/19/20 guaifenesin 600 mg tablet, extended release 12 hr 600 mg PO BID PRN 09/19/20 conjugated estrogens 0.625 mg VAGINAL MOWEFR 01/30/21 montelukast 10 mg PO DAILY 01/30/21 nystatin 1 applic TOPICAL BID 02/04/21 potassium chloride 40 meq PO BID 02/04/21 acetaminophen 1,000 mg PO Q6H PRN PRN tablet 02/16/21 fluticasone propionate 2 spray NASAL DAILY #1 02/16/21 menthol-zinc oxide 1 applic TOPICAL BID tube 02/16/21 metformin 500 mg PO BID #60 tablet 02/16/21 spironolactone 25 mg PO DAILY #30 tablet 02/16/21 cranberry 500 mg capsule 500 mg PO DAILY cap 03/20/21 Lantus Solostar U-100 Insulin 10 unit SUBCUT QPM 10/15/21 furosemide [Lasix] 40 mg PO BID 30 Days #60 tab 10/18/21 Hospital Course Operations None Procedures None Summary of Care Provided Minutes Spent on Discharge: 45 Hospital Course: 81-year-old female with heart failure with preserved EF, EF of 55% who presents with shortness of breath and cough ongoing for about 2 weeks. Patient was recently treated with Z-Mani with any improvement. She has been progressively short of breath with exertion. Her oxygen sat was in the 80s at home. Her admitting blood work showed normal WBC count, she was mildly hyperkalemic at 5.4. She had evidence of JULISSA on CKD stage IIIa. Patient initially was managed on antibiotics for presumed community-acquired pneumonia. She also managed as acute CHF. Repeat chest x-ray plus patient lack of clinical picture of worsening for pneumonia points more to presentation with CHF. Patient was continued on Lasix with improvement. She was off oxygen at time of discharge. She was discharged home on Lasix 40 mg p.o. twice daily. Kidney function improved to baseline. Elevated troponin was felt to be secondary to demand ischemia from JULISSA/acute heart failure. Physical Exam Narrative Physical Exam: Gen: Appears frail, not pale, not jaundiced CVS:HS I +II, regular, no murmurs RESP: Diminished, bilateral extensive crackles, especially at lung bases GI: BS present and normal, soft, nontender, no palpable organs EXT: Trace bilateral pedal edema Weight / BMI Weight Weight: 79.4 kg Body Mass Index (BMI) 30.8 ABG / Lab / Microbiology Data Result Diagrams: 10/18/21 05:25 10/18/21 05:25 Laboratory: Laboratory Results - last 24 hr 10/17/21 11:27: POC Glucose 170 H 10/17/21 16:29: POC Glucose 145 H 10/17/21 21:15: POC Glucose 251 H 10/18/21 05:25: WBC 8.8, RBC 3.85 L, Hgb 10.0 L, Hct 31.8 L, MCV 82.6, MCH 26.0 L, MCHC 31.4 L, RDW Std Deviation 49.5 H, RDW Coeff of Ocsar 16.8 H, Plt Count 266, MPV 11.6, Immature Gran % (Auto) 0.300, Neut % (Auto) 67.3, Lymph % (Auto) 10.2 L, [place] % (Auto) 13.8 H, Eos % (Auto) 6.7 H, Baso % (Auto) 1.7 H, Absolute Neuts (auto) 5.9, Absolute Lymphs (auto) 0.90, Nucleated RBC % 0 10/18/21 05:25: Sodium 138, Potassium 3.6, Chloride 98, Carbon Dioxide 30.0, Anion Gap 10, BUN 27 H, Creatinine 1.25 H, Estim Creat Clear Calc 31.00, Est GFR (MDRD) Af Amer 53 L, Est GFR (MDRD) Non-Af 44 L, BUN/Creatinine Ratio 21.6 H, Glucose 128 H, Calcium 8.8 10/18/21 05:25: Magnesium 2.3 10/18/21 06:36: POC Glucose 144 H Microbiology: Microbiology 10/17/21 08:51 Sputum, Expectorated/Coughed Gram Stain - Final 10/15/21 15:23 Blood Culture (Wb) #2 - Right Forearm Blood Culture - Preliminary No growth in 48 hours. 10/15/21 14:10 Blood Culture (Wb) - Anticubital Left Blood Culture - Preliminary No growth in 48 hours. 10/15/21 16:04 Mucosa - Nasopharyngeal Respiratory Panel (PCR) - Final 10/15/21 21:17 Interface Orders Legionella Antigen - Final 10/15/21 21:17 Interface Orders Streptococcus pneumoniae Antigen (M - Final 10/15/21 15:17 Mucosa - Nasopharyngeal Influenza Types A,B Direct FA (ALICIA) - Final 10/15/21 15:17 Nasal Secretion SARS-CoV-2 Antigen (Rapid) - Final D/C Instructions Discharge Diet: 2000 Calorie Control Diet, 8 Cup Fluid Restriction and 2000 mg Sodium Diet Meaningful Use Info Meaningful Use Diagnoses (Choose all that apply): CHF CHF RITA/ARB ordered at discharge?: No Reason RITA/ARB not ordered?: Worsening renal disease Documented LVEF (%): 55 Discharge Plan Admission Admit Date/Time: 10/15/21 17:12 Primary Reason for Your Visit: Acute CHF Attending Provider: Moira Cage Primary Care Provider: Rommel Arango Instructions Additional Instructions / Restrictions: Continue to take all your medications as prescribed. Take note of changes to your medication. Continue on a low-fat low-salt diet. Restrict your total fluid intake to less than 1500 mls/day. Weigh yourself every day. Let your doctor know when you gain more than 4 pounds of weight. Follow-up with your primary care doctor in 1 to 2 weeks. Follow-up with the oceanographic meteorologist in 2 weeks. You would need repeat blood work to check on your kidney function within a week of discharge. Discharge Orders/Prescriptions Prescriptions: New furosemide [Lasix] 40 mg tablet 40 mg PO BID 30 Days Qty: 60 RF: 0 Continued allopurinol 300 mg tablet 300 mg PO DAILY RF: 0 fluoxetine 40 mg capsule 40 cap PO DAILY RF: 0 guaifenesin [Mucinex] 600 mg tablet extended release 12hr 600 mg PO BID PRN (Reason: Cough) RF: 0 cranberry 500 mg capsule 500 mg PO DAILY RF: 0 albuterol sulfate 2.5 MG/3 ML solution for nebulization 2.5 mg inhalation TID RF: 0 omeprazole 40 MG capsule,delayed release(DR/EC) 40 mg PO DAILY RF: 0 levothyroxine 75 MCG tablet 75 mcg PO DAILY RF: 0 isosorbide mononitrate 60 MG tablet 60 mg PO BID RF: 0 simvastatin 20 MG tablet 20 mg PO QHS RF: 0 nitroglycerin 0.4 MG tablet, sublingual 0.4 mg sublingual Q5M PRN (Reason: Chest Pain) RF: 0 aspirin 81 MG tablet,chewable 81 mg PO DAILY@0800 RF: 0 folic acid 1 MG tablet 1 mg PO DAILY RF: 0 metoprolol succinate 25 MG tablet extended release 24 hr 25 mg PO DAILY RF: 0 colchicine 0.6 MG capsule 0.6 mg PO PRN PRN (Reason: gout) RF: 0 polyethylene glycol 3350 17 GM packet 17 g PO DAILY RF: 0 methylcellulose (laxative) 479 GM powder 850 g PO DAILY RF: 0 conjugated estrogens 0.625 MG tablet 0.625 mg vaginal MOWEFR RF: 0 montelukast 10 MG tablet 10 mg PO DAILY RF: 0 potassium chloride 20 MEQ tablet 40 meq PO BID RF: 0 nystatin 1 APPLIC bottle 1 applic TOPICAL BID RF: 0 acetaminophen 500 MG tablet 1,000 mg PO Q6H PRN PRN (Reason: Pain Score 1-10) RF: 0 menthol-zinc oxide 1 APPLIC ointment 1 applic TOPICAL BID RF: 0 metformin 500 MG tablet 500 mg PO BID Qty: 60 RF: 0 spironolactone 25 MG tablet 25 mg PO DAILY Qty: 30 RF: 0 fluticasone propionate 1 SPRAY spray,suspension 2 spray NASAL DAILY Qty: 1 RF: 0 Lantus Solostar U-100 Insulin 100 unit/mL (3 mL) Insulin Pen 10 unit SUBCUT QPM RF: 0 Discontinued furosemide 20 MG tablet 20 mg PO BIDLX RF: 0 Referrals / Follow Up: Rommel Arango MD [Primary Care Provider] - 11/01/21 1:15 pm Chanda Villa PA [PHYSICIAN ACCOUNT REPRESENTATIVE] - (as scheduled) Disposition Disposition (needs filled in before D/C Order can be placed): Home, Self Care Charges/Coding Visit Charges Inpatient E&M: 15720 Disch Hosp
--- NOTE | 2021-10-18 11:30 | CASEMGMT ---
REGGIE QUEVEDO NOTE: Pt being discharged home. Home O2 amb testing has been completed. Pt does not qualify for additional Home O2. PT eval reviewed--additional therapy recommended. REGGIE QUEVEDO to room to discuss d/c planning w/pt. Pt sitting up in recliner chair. A/O. Pt wishes to return home. She lives alone, but 2 daughters live nearby and are nurses and are supportive and check on her often. Pt states she would like [facility] for therapy only. She does not want a SN at this time. Pt was provided with list of [facility] providers including quality and resource use data and consistent with the patient's preferred geographic region, medical needs, and insurance network. The pt denies having a preference. TC to Florinda @ [facility] and referral made. She is aware pt is d/c'ing home today. She states they can accept her, but SOC would not be until end of next week. REGGIE QUEVEDO made pt aware of this and offered to look into finding another [facility] agency that could take her sooner, but pt delcines, stating she wants to go with [facility]. She states she feels safe to return home and denies other needs or concerns. Rupal SOLARES RN, CM
[2021-10-18] MEDS: Insulin Lispro 100 UNIT/ML INSULN.PEN SC (11:54)
[2021-10-18 12:16] LABS: Bedside Glucose 155 mg/dL (70-110)
[2021-10-18] MEDS: Ondansetron ODT 4 MG Tablet 8 MG PO (15:40)
== END 2021-10-18 17:10 | disposition home or self-care (01) | DRG 291 ==
LOC: ED 16:20 → PCU 10-16 07:15
PROVIDERS: Hospitalist; Nurse Practitioner Family; Admitting Provider Internal Medicine; Emergency Provider Emergency Medicine; PCP Family Medicine; Visit Provider Internal Medicine
DX: I13.0 Hypertensive heart and chronic kidney disease with heart failure and stage 1 through stage 4 chronic kidney disease, or unspecified chronic kidney disease (principal); J96.21 Acute and chronic respiratory failure with hypoxia; J18.9 Pneumonia, unspecified organism; I50.33 Acute on chronic diastolic (congestive) heart failure; N17.9 Acute kidney failure, unspecified; I24.8 Other forms of acute ischemic heart disease; E11.22 Type 2 diabetes mellitus with diabetic chronic kidney disease; N18.31 Chronic kidney disease, stage 3a; E87.5 Hyperkalemia; I42.8 Other cardiomyopathies; Z20.822 Contact with and (suspected) exposure to COVID-19; I35.0 Nonrheumatic aortic (valve) stenosis; E78.5 Hyperlipidemia, unspecified; I27.21 Secondary pulmonary arterial hypertension; I25.10 Atherosclerotic heart disease of native coronary artery without angina pectoris; E03.9 Hypothyroidism, unspecified; M10.9 Gout, unspecified; M19.90 Unspecified osteoarthritis, unspecified site; K21.9 Gastro-esophageal reflux disease without esophagitis; G47.33 Obstructive sleep apnea (adult) (pediatric); F32.A Depression, unspecified; F41.9 Anxiety disorder, unspecified; E66.01 Morbid (severe) obesity due to excess calories; Z79.4 Long term (current) use of insulin; Z79.82 Long term (current) use of aspirin; Z79.890 Hormone replacement therapy; Z79.899 Other long term (current) drug therapy; I25.2 Old myocardial infarction; Z86.718 Personal history of other venous thrombosis and embolism; Z86.711 Personal history of pulmonary embolism; Z87.891 Personal history of nicotine dependence; Z95.1 Presence of aortocoronary bypass graft; Z95.5 Presence of coronary angioplasty implant and graft; Z96.653 Presence of artificial knee joint, bilateral; Z90.49 Acquired absence of other specified parts of digestive tract
CPT/HCPCS: 36415; 71045; 80048; 80053; 82962; 83605; 83735; 83880; 84100; 84443; 84484; 85025; 87040; 87070; 87077; 87186; 87205; 87426; 87449; 87633; 87635; 87641; 87804; 93005; 93306; 94640; 94667; 94668; 97162; 99251; 99285; J7050; Q9957; U0005; A4216; C8929; G0463; J0696; J1940; U0003

== ENCOUNTER 2021-10-23 16:02 | Outpatient (RCR) | payer MEDICARE, OTHER, SELFPAY ==
[2021-10-23 18:58] LABS: Anion Gap 7 (5-15); BUN 46 mg/dL (7-18); BUN/Creat Ratio 32.6 RATIO (10-20); Chloride 102 mmol/L (98-107); Creatinine, Serum 1.41 mg/dL (0.55-1.02); EST Glomerular Filtration Rate 38 mL/min (>60); Est Glom Filt Rate - Afr Amer 46 mL/min (>60); Glucose 139 mg/dL (74-106); Potassium 4.8 mmol/L (3.5-5.1); Sodium Level 136 mmol/L (136-145)
[2021-10-24 11:10] LABS: Albumin, Serum 2.9 g/dL (3.2-5.0); Phosphorus 3.5 mg/dL (2.5-4.9)
== END 2021-10-23 18:00 | disposition home or self-care (01) ==
LOC: HHLAB 16:02
PROVIDERS: PCP Family Medicine; Visit Provider Family Medicine
DX: E87.6 Hypokalemia (principal)
CPT/HCPCS: 80048; 82040; 84100

== ENCOUNTER 2021-11-16 15:08 | Outpatient (RCR) | payer MEDICARE, OTHER, SELFPAY ==
[2021-11-02 13:32] LABS: Hematocrit 36.1 % (37-47); Hemoglobin 10.7 g/dL (12.0-15.0); Mean Corp Hgb Conc 29.6 g/dL (32-36); Mean Corpuscular Hgb 25.1 pg (27.0-32.0); Mean Corpuscular Volume 84.5 fL (81-99); Mean Platelet Vol. 13.2 fl (6.2-12.0); Platelet Count 224 K/mm3 (150-450); RBC Distribution Width CV 17.1 % (11.6-14.6); RBC Distribution Width SD 52.2 fl (35.1-43.9); Red Blood Count 4.27 M/mm3 (4.2-5.4)
[2021-11-02 13:50] LABS: Anion Gap 7 (5-15); BUN 37 mg/dL (7-18); BUN/Creat Ratio 28.5 RATIO (10-20); Calcium,Total 9.7 mg/dL (8.5-10.1); Chloride 100 mmol/L (98-107); EST Glomerular Filtration Rate 42 mL/min (>60); Est Glom Filt Rate - Afr Amer 51 mL/min (>60); Glucose 148 mg/dL (74-106); Potassium 4.4 mmol/L (3.5-5.1); Sodium Level 137 mmol/L (136-145)
[2021-11-10 13:20] LABS: Hematocrit 34.5 % (37-47); Hemoglobin 10.6 g/dL (12.0-15.0); Mean Corp Hgb Conc 30.7 g/dL (32-36); Mean Corpuscular Hgb 25.8 pg (27.0-32.0); Mean Corpuscular Volume 83.9 fL (81-99); Mean Platelet Vol. 11.7 fl (6.2-12.0); Platelet Count 235 K/mm3 (150-450); RBC Distribution Width CV 17.8 % (11.6-14.6); RBC Distribution Width SD 53.7 fl (35.1-43.9); Red Blood Count 4.11 M/mm3 (4.2-5.4)
[2021-11-16 16:21] LABS: Hematocrit 35.1 % (37-47); Hemoglobin 10.7 g/dL (12.0-15.0); Mean Corp Hgb Conc 30.5 g/dL (32-36); Mean Corpuscular Volume 85.2 fL (81-99); Mean Platelet Vol. 12.5 fl (6.2-12.0); Platelet Count 267 K/mm3 (150-450); RBC Distribution Width CV 17.9 % (11.6-14.6); RBC Distribution Width SD 54.6 fl (35.1-43.9); Red Blood Count 4.12 M/mm3 (4.2-5.4); White Blood Count 6.7 K/mm3 (4.4-11.0)
[2021-11-16 16:26] LABS: Anion Gap 8 (5-15); BUN 35 mg/dL (7-18); BUN/Creat Ratio 27.3 RATIO (10-20); Calcium,Total 9.6 mg/dL (8.5-10.1); Chloride 101 mmol/L (98-107); Creatinine, Serum 1.28 mg/dL (0.55-1.02); EST Glomerular Filtration Rate 43 mL/min (>60); Est Glom Filt Rate - Afr Amer 52 mL/min (>60); Glucose 120 mg/dL (74-106); Potassium 4.4 mmol/L (3.5-5.1); Sodium Level 136 mmol/L (136-145)
== END 2021-11-26 18:00 | disposition home or self-care (01) ==
LOC: HHLAB 15:08
PROVIDERS: PCP Family Medicine; Visit Provider Family Medicine
DX: I13.0 Hypertensive heart and chronic kidney disease with heart failure and stage 1 through stage 4 chronic kidney disease, or unspecified chronic kidney disease (principal); I50.43 Acute on chronic combined systolic (congestive) and diastolic (congestive) heart failure; E11.22 Type 2 diabetes mellitus with diabetic chronic kidney disease; N18.9 Chronic kidney disease, unspecified
CPT/HCPCS: 80048; 85027

== ENCOUNTER 2021-11-23 17:59 | Outpatient (RCR) | payer MEDICARE, OTHER, SELFPAY ==
[2021-11-23 18:10] LABS: Hematocrit 33.6 % (37-47); Mean Corp Hgb Conc 29.8 g/dL (32-36); Mean Corpuscular Hgb 25.1 pg (27.0-32.0); Mean Corpuscular Volume 84.4 fL (81-99); Platelet Count 249 K/mm3 (150-450); RBC Distribution Width CV 17.8 % (11.6-14.6); RBC Distribution Width SD 54.5 fl (35.1-43.9); Red Blood Count 3.98 M/mm3 (4.2-5.4); White Blood Count 7.4 K/mm3 (4.4-11.0)
[2021-11-23 18:37] LABS: Anion Gap 7 (5-15); BUN 37 mg/dL (7-18); BUN/Creat Ratio 26.8 RATIO (10-20); Calcium,Total 8.9 mg/dL (8.5-10.1); Chloride 98 mmol/L (98-107); Creatinine, Serum 1.38 mg/dL (0.55-1.02); EST Glomerular Filtration Rate 39 mL/min (>60); Est Glom Filt Rate - Afr Amer 47 mL/min (>60); Glucose 205 mg/dL (74-106); Potassium 4.5 mmol/L (3.5-5.1); Sodium Level 132 mmol/L (136-145)
== END 2021-11-26 18:00 | disposition home or self-care (01) ==
LOC: HHLAB 17:59
PROVIDERS: PCP Family Medicine; Visit Provider Family Medicine
DX: I13.0 Hypertensive heart and chronic kidney disease with heart failure and stage 1 through stage 4 chronic kidney disease, or unspecified chronic kidney disease (principal); I50.43 Acute on chronic combined systolic (congestive) and diastolic (congestive) heart failure; E11.22 Type 2 diabetes mellitus with diabetic chronic kidney disease; N18.9 Chronic kidney disease, unspecified
CPT/HCPCS: 80048; 85027

== ENCOUNTER 2021-12-10 10:13 | Outpatient (CLI) | payer MEDICARE, OTHER, SELFPAY ==
[2021-12-10 11:28] LABS: Absolute Lymphocyte Count 1.08 X10^3/uL (0.83-4.51); Absolute Neutrophil Count 6.3 X10^3/uL (2.0-7.7); Basophil# 0.08 X10^3/uL; Basophil% 0.9 % (0-1); Eosinophil# 0.22 X10^3/uL; Eosinophils% 2.6 % (0-5); Hemoglobin 10.7 g/dL (12.0-15.0); Lymphocyte # 1.08 X10^3/ul (0.83-4.51); Lymphocyte % 12.6 % (19-41); Mean Corp Hgb Conc 31.5 g/dL (32-36); Mean Corpuscular Hgb 26.3 pg (27.0-32.0); Mean Corpuscular Volume 83.5 fL (81-99); Mean Platelet Vol. 11.9 fl (6.2-12.0); Monocyte# 0.88 X10^3/uL; Monocyte% 10.3 % (0-10); NRBC Flagged by Analyzer 0 % (0-5); Neutrophil # 6.26 X10^3/uL (2.7-7.7); Platelet Count 242 K/mm3 (150-450); RBC Distribution Width CV 18.1 % (11.6-14.6); RBC Distribution Width SD 53.9 fl (35.1-43.9); Red Blood Count 4.07 M/mm3 (4.2-5.4); White Blood Count 8.6 K/mm3 (4.4-11.0)
[2021-12-10 12:17] LABS: AST(SGOT) 24 U/L (15-37); Alanine Aminotransfer ALT/SGPT 15 U/L (13-56); Albumin, Serum 3.2 g/dL (3.2-5.0); Alkaline Phosphatase 103 U/L (45-117); Anion Gap 10 (5-15); BUN 46 mg/dL (7-18); BUN/Creat Ratio 33.6 RATIO (10-20); Bilirubin, Direct 0.16 mg/dL (0.00-0.30); Calcium,Total 9.2 mg/dL (8.5-10.1); Chloride 100 mmol/L (98-107); Cholesterol 126 mg/dL (200); Creatinine, Serum 1.37 mg/dL (0.55-1.02); EST Glomerular Filtration Rate 39 mL/min (>60); Est Glom Filt Rate - Afr Amer 48 mL/min (>60); Globulin 5.4 g/dL (2.2-4.2); Glucose 128 mg/dL (74-106); High Density Lipoprotein 58 mg/dL; Potassium 3.9 mmol/L (3.5-5.1); Protein, Total 8.6 g/dL (6.4-8.2); Sodium Level 135 mmol/L (136-145); Triglycerides 110 mg/dL; Very Low Density Lipoprotein 22 mg/dL (5-40)
[2021-12-10 13:59] LABS: Erythrocyte Sedimentation Rate 80 mm/hr (0-30)
[2021-12-10 14:20] LABS: Hemoglobin A1c 6.4 % (3.8-5.6)
[2021-12-10 14:41] LABS: Prealbumin 17.1 mg/dL (20.0-40.0)
[2021-12-11 11:43] LABS: Magnesium 1.9 mg/dL (1.6-2.6)
== END 2021-12-10 23:59 | disposition home or self-care (01) ==
LOC: LAB 10:15
PROVIDERS: PCP Family Medicine; Referring Provider Nurse Practitioner Gerontology; Visit Provider Nurse Practitioner Gerontology
DX: I13.0 Hypertensive heart and chronic kidney disease with heart failure and stage 1 through stage 4 chronic kidney disease, or unspecified chronic kidney disease (principal); I50.43 Acute on chronic combined systolic (congestive) and diastolic (congestive) heart failure; E11.22 Type 2 diabetes mellitus with diabetic chronic kidney disease; R53.83 Other fatigue; E78.5 Hyperlipidemia, unspecified; T14.8XXA Other injury of unspecified body region, initial encounter; X58.XXXA Exposure to other specified factors, initial encounter
CPT/HCPCS: 36415; 80048; 80061; 80076; 83036; 83735; 84134; 85025; 85652; 86140

== ENCOUNTER 2021-12-17 11:27 | Outpatient (RCR) | payer MEDICARE, OTHER, SELFPAY ==
[2021-12-04 16:07] LABS: Hematocrit 35.3 % (37-47); Mean Corp Hgb Conc 31.2 g/dL (32-36); Mean Corpuscular Hgb 26.1 pg (27.0-32.0); Mean Corpuscular Volume 83.8 fL (81-99); Mean Platelet Vol. 12.5 fl (6.2-12.0); Platelet Count 243 K/mm3 (150-450); RBC Distribution Width CV 18.3 % (11.6-14.6); RBC Distribution Width SD 54.9 fl (35.1-43.9); Red Blood Count 4.21 M/mm3 (4.2-5.4); White Blood Count 7.6 K/mm3 (4.4-11.0)
[2021-12-04 16:16] LABS: Anion Gap 7 (5-15); BUN 33 mg/dL (7-18); BUN/Creat Ratio 25.8 RATIO (10-20); Calcium,Total 9.7 mg/dL (8.5-10.1); Chloride 99 mmol/L (98-107); Creatinine, Serum 1.28 mg/dL (0.55-1.02); EST Glomerular Filtration Rate 43 mL/min (>60); Est Glom Filt Rate - Afr Amer 52 mL/min (>60); Glucose 122 mg/dL (74-106); Potassium 4.6 mmol/L (3.5-5.1); Sodium Level 135 mmol/L (136-145)
[2021-12-17 15:38] LABS: Hemoglobin 10.7 g/dL (12.0-15.0); Mean Corp Hgb Conc 30.6 g/dL (32-36); Mean Corpuscular Hgb 25.9 pg (27.0-32.0); Mean Corpuscular Volume 84.7 fL (81-99); Mean Platelet Vol. 11.9 fl (6.2-12.0); Platelet Count 260 K/mm3 (150-450); RBC Distribution Width CV 18.8 % (11.6-14.6); RBC Distribution Width SD 55.6 fl (35.1-43.9); Red Blood Count 4.13 M/mm3 (4.2-5.4); White Blood Count 7.5 K/mm3 (4.4-11.0)
[2021-12-17 18:01] LABS: Anion Gap 5 (5-15); BUN 34 mg/dL (7-18); BUN/Creat Ratio 25.2 RATIO (10-20); Calcium,Total 9.2 mg/dL (8.5-10.1); Chloride 107 mmol/L (98-107); Creatinine, Serum 1.35 mg/dL (0.55-1.02); EST Glomerular Filtration Rate 40 mL/min (>60); Est Glom Filt Rate - Afr Amer 48 mL/min (>60); Glucose 125 mg/dL (74-106); Potassium 4.6 mmol/L (3.5-5.1); Sodium Level 137 mmol/L (136-145)
== END 2021-12-24 23:59 | disposition home health service (06) ==
LOC: HHLAB 11:27
PROVIDERS: PCP Family Medicine; Visit Provider Family Medicine
DX: I13.0 Hypertensive heart and chronic kidney disease with heart failure and stage 1 through stage 4 chronic kidney disease, or unspecified chronic kidney disease (principal); I50.43 Acute on chronic combined systolic (congestive) and diastolic (congestive) heart failure; E11.22 Type 2 diabetes mellitus with diabetic chronic kidney disease; N18.9 Chronic kidney disease, unspecified
CPT/HCPCS: 80048; 85027

== ENCOUNTER 2021-12-21 10:15 | Outpatient (RCR) | payer MEDICARE, OTHER, SELFPAY ==
[2021-12-07 09:06] VITALS: BP 100/40; PULSE 73; RESP 16; BMI 29.2
--- NOTE | 2021-12-07 09:31 | HP.PCM_ITS ---
History of Present Illness Date of Service: 12/07/21 Chief Complaint: Right heel and coccyx ulcers History of Wound: The patient is a pleasant 81-year-old female who [facility]) for evaluation of a right heel ulcer and coccygeal ulcer. She has a past medical history significant for ruptured polyp s/p colostomy and colostomy reversal, type 2 diabetes mellitus, CKD stage 3B, congestive heart failure, coronary artery disease status post stent placement, right bundle branch block, nonrheumatic aortic stenosis, hypertension, and hyperlipidemia. She is allergic to iodinated contrast. She does not use tobacco. She presents today with her daughter, who provides most of her history. Both of these ulcers have been ongoing for approximately a year. Apparently, these began following a hospitalization. She has not had any imaging or culture s of her ulcers. She was recently hospitalized for suspected bilateral pneumonia and acute on chronic CHF, and treated with antibiotics (vancomycin and Zosyn). She completed an oral Z-Mani prior to her admission. She was discharged home following hospitalization, and is receiving [facility] home health care with once weekly nursing visits. Her children are also aiding in her care. Her recent lab work from 12/04/2021 was significant for the following: CBC: Hemoglobin 11.0, hematocrit 35.3 BMP: Sodium 135, BUN 33, creatinine 1.28, estimated GFR 43, glucose 122 CMP from 10/16/2021 revealed no evidence of liver disease. Venous studies of the bilateral lower extremities from 06/25/2021 were unremarkable. The patient's daughter reports that they have been using Milana dressing changes approximately 3 times per week to the coccygeal ulcer and covering with Allevyn dressing. She reports she has not noticed any significant drainage from the coccygeal ulcer. The patient's heel ulcer has been scabbed over with dried slough/eschar, and they have been cleansing it but not covering with a dressing. They encouraged the patient to avoid pressure on her heel. She wears BiPAP at night and is unable to lay on her side, so she is always laying on her back in bed. They have wedges for offloading, though these have not been useful in the past. She spends most of her day sitting in a chair, and does not use a offloading cushion. She does not often develop significant swelling in her lower extremities. The patient denies fever, chills, general malaise, or poor appetite. The patient has not had increased redness, swelling, or purulent/malodorous drainage from affected area. [facility] Medical History (Updated 12/07/21 @ 13:20 by Tashia Garcia NP, [employer]) Anxiety and depression Atherosclerosis of coronary artery of lime heart without angina pectoris Chronic diastolic (congestive) heart failure Chronic respiratory failure Chronic systolic (congestive) heart failure Debility Decubitus ulcer of coccygeal region, stage 3 Depression Diverticulosis Essential hypertension Fall Gastroesophageal reflux disease GERD (gastroesophageal reflux disease) Gout History of deep venous thrombosis History of pulmonary embolism History of ST elevation myocardial infarction (STEMI) (04/2013) Hyperlipemia Hypoglycemia due to type 2 diabetes mellitus Hypothyroidism Hypothyroidism Impaired mobility Insulin dependent diabetes mellitus Morbid obesity Non-ischemic cardiomyopathy Nonrheumatic aortic (valve) stenosis Obstructive sleep apnea Osteoarthritis Right bundle branch block (RBBB) 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, stage 2 Type 2 diabetes mellitus with skin complication, without long-term current use of insulin Type II diabetes mellitus Home Medications albuterol sulfate 2.5 mg INHALATION TID 06/05/19 [History Last Taken 01/29/21] aspirin 81 mg PO DAILY@0800 06/05/19 [History Last Taken 01/29/21] colchicine 0.6 mg PO PRN PRN 06/05/19 [History Last Taken Unknown] folic acid 1 mg PO DAILY 06/05/19 [History Last Taken 01/29/21] isosorbide mononitrate 60 mg PO BID 06/05/19 [History Last Taken 01/29/21] levothyroxine 75 mcg PO DAILY 06/05/19 [History Last Taken 01/29/21] metoprolol succinate 25 mg PO DAILY 06/05/19 [History Last Taken 01/29/21] nitroglycerin 0.4 mg SUBLINGUAL Q5M PRN 06/05/19 [History Last Taken Unknown] omeprazole 40 mg PO DAILY 06/05/19 [History Last Taken 01/29/21] polyethylene glycol 3350 17 g PO DAILY 06/05/19 [History Last Taken 01/29/21] simvastatin 20 mg PO QHS 06/05/19 [History Last Taken 01/29/21] methylcellulose (laxative) 850 g PO DAILY 06/29/19 [History Last Taken 01/29/21] allopurinol 300 mg tablet 300 mg PO DAILY tab 09/19/20 [History Last Taken 01/29/21] fluoxetine 40 mg capsule 40 cap PO DAILY 09/19/20 [History Last Taken 01/29/21] guaifenesin 600 mg tablet, extended release 12 hr 600 mg PO BID PRN 09/19/20 [History Last Taken 01/29/21] conjugated estrogens 0.625 mg VAGINAL MOWEFR 01/30/21 [History Last Taken 01/27/21] montelukast 10 mg PO DAILY 01/30/21 [History Last Taken 01/29/21] nystatin [Nystop] 1 applic TOPICAL BID 02/04/21 [History Last Taken Unknown] potassium chloride 40 meq PO BID 02/04/21 [History Last Taken Unknown] acetaminophen 1,000 mg PO Q6H PRN PRN tablet 02/16/21 [Rx Last Taken Unknown] fluticasone propionate 2 spray NASAL DAILY #1 02/16/21 [Rx Last Taken Unknown] menthol-zinc oxide 1 applic TOPICAL BID tube 02/16/21 [Rx Last Taken Unknown] metformin 500 mg PO BID #60 tablet 02/16/21 [Rx Last Taken Unknown] spironolactone 25 mg PO DAILY #30 tablet 02/16/21 [Rx Last Taken Unknown] furosemide [Lasix] 40 mg PO BID 30 Days #60 tab 10/18/21 [Rx Last Taken Unknown] Allergy/AdvReac Type Severity Reaction Status Date / Time Iodinated Contrast Media AdvReac Hives Verified 12/07/21 09:33 [CONTRASTS] Family History Mother Heart disease Surgical History H/O coronary artery bypass surgery (01/08/05) History of bilateral knee replacement History of cholecystectomy History of colectomy History of coronary artery stent placement (08/02/15) History of herniorrhaphy Social History (Updated 10/15/21 @ 18:[address] Maida Smith DO) Smoking Status: Former smoker substance use type: does not use ROS Constitutional Constitutional: Denies chills, fever(s) or night sweats Eyes Eyes: Denies change in vision or double vision ENT HEENT: Denies lip swelling or tongue swelling Cardiovascular Cardiovascular: Denies chest pain, leg edema or palpitations Respiratory/Chest Respiratory/Chest: Reports shortness of breath with exertion; Denies cough, shortness of breath at rest or wheezing Gastrointestinal Gastrointestinal: Denies diarrhea, nausea or vomiting Genitourinary Genitourinary: Denies dysuria or hematuria Musculoskeletal Musculoskeletal: Reports abnormal gait; Denies extremity pain or muscle weakness Integumentary Integumentary: Reports wounds; Denies rash Neurologic Neurologic: Reports abnormal gait; Denies abnormal speech or focal weakness Endocrine Endocrinology: Denies cold intolerance, heat intolerance, polydipsia or polyuria Hematologic/Lymphatic Hematologic/Lymphatic: Denies easy bleeding or easy bruising Vital Signs Vital Signs Vital Signs: 12/07/21 09:06 Pulse Rate 73 Respiratory Rate 16 Blood Pressure 100/40 L Blood Pressure Mean 60 Blood Pressure Source Monitor Blood Pressure Position Supine Blood Pressure Location Right Arm Oxygen Delivery Method Room Air Weight Weight: 170 lb Body Mass Index (BMI) 29.2 Physical Exam Const alert, no apparent distress and healthy appearing General Appearance: cooperative, comfortable and well kempt HEENT Head and Scalp: normocephalic and atraumatic Eyes EOMs intact bilaterally Neck supple and no JVD Resp normal respiratory effort, normal air movement and no use of accessory muscles Auscultation: clear to auscultation bilaterally; Negative for crackles, rales, rhonchi or wheezes Cardio regular rate and regular rhythm GI normal to inspection, nondistended, normoactive bowel sounds Extremity normal capillary refill, no joint enlargement, no clubbing, cyanosis or edema, no calf tenderness and no pedal edema Peripheral Pulses: Yes dorsalis pedis pulses present bilateral 2+ Skin Wounds: wounds noted No malodorous Wound Narrative: Coccygeal ulcer with circumferential undermining. Subcutaneous layer exposed. Wound opening is very small, and it is difficult to visualize wound bed. No noted probing to bone. No purulent or malodorous drainage. No periulcer erythema, warmth, or tenderness. Right heel ulcer with large amount of slough and devitalized tissue (eschar). Subcutaneous layer exposed. No tunneling, undermining, or probing to bone. Mild periulcer erythema. Tenderness to palpation/debridement. No purulent/malodorous drainage. Neuro oriented x3, moves all extremities and no focal motor deficits Psych mental status grossly normal, cooperative and affect normal Debridement Note Debridement Note Wound debrided: Right heel ulcer Laterality: Right Type of Debridement: Excisional debridement Anesthesia Used: 5% Lidocaine Gel Depth: in the subcutaneous layer Percentage of wound debrided: 100 Instrument Used: 3mm curette Tissue Removed: Slough and devitalized tissue Severity: Fat Layer Exposed Amount of bleeding with debridement: Mild Bleeding Controlled with: Pressure Patient tolerated procedure: Patient tolerated procedure well Post-Debridement Measurements and Additional Note: Post-Debridement Measurements/Treatment - Nurse 1 - General Ulcer Assessment Start: 12/07/21 09:06 Freq: Status: Active Protocol: MONIQUE Activity Type Activity Date Activity User E-Sign Co-Sign Detail Recorded Client Recorded Date Recorded By Document 12/07/21 09:06 [facility] [id number] 12/07/21 09:29 [facility] 12/07/21 09:06 - Today's Visit Information Type of service Initial Visit Arrival Mode Wheelchair Transfer Assistance Other Transfer Assist (Other) 2 assist Accompanied by daughter Patient Identification Verified (Name & Yes ) Patient Requires Transmission-Based No Precautions Height and Weight Height 5 ft 4 in Weight 170 lb Weight in Pounds 170.0 lbs Weight Measurement Method Stated by Patient Body Mass Index (BMI) 29.2 BMI Classification Overweight BSA - Brooke 1.83 Vital Signs Pulse Rate (60-100) 73 Pulse Location Monitor Respiratory Rate (12-18) 16 Respiratory rate source Observation Oxygen Delivery Method Room Air Blood Pressure (90/60-120/80) 100/40 L Blood Pressure Mean 60 Source Monitor Position Supine Blood Pressure Location Right Arm History Since Last Visit- (Skip if this is Patient's initial visit) Left Footwear Regular Shoe Right Footwear Regular Shoe Pain Scale: 0-10 Numeric Is Patient Pain Free? Yes Communication Assessment Preferred language Cymro Forklift Driver Required No Able to Read Yes Able to Write Yes Communication Tools None Right Hearing Abillity Hard of Hearing Left Hearing Abillity Hard of Hearing Visual Assistive Devices Glasses Teaching Assessment Preferences Verbal,Written, Audio/Visual, Demonstration Barriers to Learning None Readiness To Learn Excellent Willingness to Engage in Self Management High Activies Readiness to Engage in Self Management High Activities Anxiety Level Calm Cooperation Cooperative Perception Coherent Interest in Health Problem Asks Questions Education Importance Acknowledges Need Does Patient Smoke tobacco or other No substances Smoking Status Former smoker Is Patient Diabetic Yes Functional Assessment Recent Decline in Ability to Perform Denies Any Declines Culture/Hindu/Pit Manager Cultural/Hindu Needs that may affect No Treatment Plan Teaching: Wound Center *Welcome to the Wound Center -Person Taught Patient,Family -Teaching Method Discussion -Response to teaching Verbalize understanding Welcome to the [facility] Cymro WC - Nurse 1 - General Ulcer Measurement Start: 12/07/21 09:06 Freq: Status: Active Protocol: Activity Type Activity Date Activity User E-Sign Co-Sign Detail Recorded Client Recorded Date Recorded By Document 12/07/21 09:06 [facility] [id number] 12/07/21 09:29 [facility] 12/07/21 09:06 Wound Center Nurse 1 #2- COCCYX -Combined with other wound No -Current Size (cm) - Length 0.3 -Current Size (cm) - Width 0.2 -Current Size (cm) - Depth 0.6 -Total Square Cm 0.06 -Date of Last Picture (Recall this 12/07/21 field) -Photo Taken Yes -Epithelialization None Present -Tunneling No -Undermining/Tunneling Yes -Undermining/Tunneling Starts (O'clock 12 ) -Undermining/Tunneling Ends (O'clock) 12 -Maximum Distance (cm) 0.5 -Circular Undermining No -Exudate Amt Small -Exudate Type Serosanguineous -Wound Margin Distinct, Outline Attached -Granulation Amt Large (67-100%) -Granulation Quality Red -Slough/Fibrin No -Necrosis Amt None Present (0 %) -Texture (Hanna-wound Skin Appearance) Assessed, Scarring -Moisture (Hanna-wound Skin Appearance) Assessed -Color (Hanna-wound Skin Appearance) Assessed -Temperature (Hanna-wound Skin No Abnormality Appearance) (Pt Warm) -Tenderness on Palpation (Hanna-wound No Skin Appearance) -Ulcer Cleansing Rinsed/ Irrigated with Saline -Foul Odor after Cleansing No -Anesthetic Used 5% Lidocaine Gel #1- R HEEL -Combined with other wound No -Current Size (cm) - Length 1.3 -Current Size (cm) - Width 0.8 -Current Size (cm) - Depth 0.1 -Total Square Cm 1.04 -Date of Last Picture (Recall this 12/07/21 field) -Photo Taken Yes -Epithelialization None Present -Tunneling No -Undermining/Tunneling No -Circular Undermining No -Exudate Amt None Present -Wound Margin Distinct, Outline Attached -Granulation Amt None Present (0 %) -Slough/Fibrin Yes -Necrosis Amt Large (67-100%) -Necrotic Tissue Type Adherent Slough -Texture (Hanna-wound Skin Appearance) Assessed, Scarring -Moisture (Hanna-wound Skin Appearance) Assessed,Dry/ Scaly -Color (Hanna-wound Skin Appearance) Assessed, Erythema -Temperature (Hanna-wound Skin No Abnormality Appearance) (Pt Warm) -Tenderness on Palpation (Hanna-wound Yes Skin Appearance) -Ulcer Cleansing Rinsed/ Irrigated with Saline -Foul Odor after Cleansing No -Anesthetic Used 5% Lidocaine Gel Additional Wound Wound debrided: Coccygeal ulcer Laterality: Not Applicable Wound Grade/Stage: Suspected stage III Type of Debridement: Excisional debridement Anesthesia Used: 4% Lidocaine Solution Depth: in the subcutaneous layer Percentage of wound debrided: 100 Instrument Used: - (1 mm curette) Tissue Removed: Slough and devitalized tissue Severity: Fat Layer Exposed Bleeding Controlled with: Pressure Patient tolerated procedure: Patient tolerated procedure well Charges/Coding Visit Charges Office Visits / Consults: [id number] OV L4 Est Procedures Integumentary [id number]: [id number] Jackie subq tissue 20 sq cm/< Assessment/Plan Assessment/Plan (1) 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, stage 2: CODE(S): E11.621 - Type 2 diabetes mellitus with foot ulcer; L89.602 - P ressure ulcer of unspecified heel, stage 2 (2) Decubitus ulcer of coccygeal region, stage 3: CODE(S): L89.153 - Pressure ulcer of sacral region, stage 3 (3) Type 2 diabetes mellitus with skin complication, without long-term current use of insulin: CODE(S): E11.628 - Type 2 diabetes mellitus with other skin complications QUALIFIERS: Diabetes mellitus complication detail: with foot ulcer Qualified Code(s): E11.621 - Type 2 diabetes mellitus with foot ulcer; L97.509 - Non-pressure chronic ulcer of other part of unspecified foot with unspecified severity (4) Impaired mobility: CODE(S): Z74.09 - Other reduced mobility PLAN: Debridement performed today in clinic as annotated above. Aquacel Ag applied to the right heel ulcer. Milana applied to the coccygeal ulcer. At home wound-care instructions: We will order home health care to perform dressing changes 3 times weekly. Change dressing once daily or more frequently as needed due to contamination. Wash wounds daily with antibacterial soap and water, rinse and dry thoroughly before each dressing change. Compression: Single-layer Tubigrip applied to the right lower extremity. Patient instructed to wear this daily. Off-loading: The patient was instructed to avoid pressure and friction on the affected areas. Offloading mechanisms discussed with the patient and daughter. Reposition every 2 hours at minimum. Avoid prolonged standing and/or dangling of legs. When seated, feet should be elevated at chest level. Frequent ambulation is encouraged. Diet: Patient encouraged to increase protein intake while taking caution to avoid high carbohydrate and/or sugar intake. Patient's daughter has purchased boost and Glucerna shakes for her to use. Labs/cultures/imaging: Cultures ordered and collected today. Labs reviewed as annotated above. Additional lab work will be added onto upcoming labs in next 1- 2 weeks (ESR, CRP, prealbumin, hemoglobin A1c). Vascular studies deferred. Follow-up: Return to clinic in 1 week for re-evaluation. Return sooner or report to the emergency room should symptoms worsen, or new symptoms arise. Note: redealize speech recognition senior accounting clerk software was used to create portions of this document. Sound-alike and misspelled words, as well as other senior accounting clerk errors may be contained in the documentation.
[2021-12-14 10:11] VITALS: BP 96/44; PULSE 78; TEMP 35.5; BMI 29.2
--- NOTE | 2021-12-14 12:28 | PCM.WC.PN ---
History of Present Illness Date of Service: 12/14/21 Chief Complaint: Right heel and coccyx ulcers History of Wound: The patient is a pleasant 81-year-old female who [facility]) for evaluation of a right heel ulcer and coccygeal ulcer. She has a past medical history significant for ruptured polyp s/p colostomy and colostomy reversal, type 2 diabetes mellitus, CKD stage 3B, congestive heart failure, coronary artery disease status post stent placement, right bundle branch block, nonrheumatic aortic stenosis, hypertension, and hyperlipidemia. She is allergic to iodinated contrast. She does not use tobacco. She presents today with her daughter, who provides most of her history. Both of these ulcers have been ongoing for approximately a year. Apparently, these began following a hospitalization. She has not had any imaging or cultures of her ulcers. She was recently hospitalized for suspected bilateral pneumonia and acute on chronic CHF, and treated with antibiotics (vancomycin and Zosyn). She completed an oral Z-Mani prior to her admission. She was discharged home following hospitalization, and is receiving [facility] home health care with once weekly nursing visits. Her children are also aiding in her care. Her recent lab work from 12/04/2021 was significant for the following: CBC: Hemoglobin 11.0, hematocrit 35.3 BMP: Sodium 135, BUN 33, creatinine 1.28, estimated GFR 43, glucose 122 CMP from 10/16/2021 revealed no evidence of liver disease. Venous studies of the bilateral lower extremities from 06/25/2021 were unremarkable. The patient's daughter reports that they have been using Milana dressing changes approximately 3 times per week to the coccygeal ulcer and covering with Allevyn dressing. She reports she has not noticed any significant drainage from the coccygeal ulcer. The patient's heel ulcer has been scabbed over with dried slough/eschar, and they have been cleansing it but not covering with a dressing. They encouraged the patient to avoid pressure on her heel. She wears BiPAP at night and is unable to lay on her side, so she is always laying on her back in bed. They have wedges for offloading, though these have not been useful in the past. She spends most of her day sitting in a chair, and does not use a offloading cushion. She does not often develop significant swelling in her lower extremities. The patient denies fever, chills, general malaise, or poor appetite. The patient has not had increased redness, swelling, or purulent/malodorous drainage from affected area. Progress of Wound: The patient's heel ulcer is improved in size and appearance. She is tolerating Aquacel Ag well. She reports significant tenderness of the left heel in the past week. The patient denies fever, chills, general malaise, or poor appetite. The patient has not had increased redness or purulent/malodorous drainage from affected area. Her right heel wound culture from 12/07/2021 was positive for rare Pseudomonas aeroginosa; topical gentamicin ointment was prescribed to be applied twice daily. Patient's coccygeal ulcer is mildly improved in size from her last visit. She is tolerating Milana well. Her coccygeal wound culture from 12/07/2021 was negative for aerobic or anaerobic growth. Objective Data Objective Data Vital Signs: Vital Signs Temp Pulse Resp BP 96 F L 78 16 96/44 L 12/14/21 10:11 12/14/21 10:11 12/07/21 09:06 12/14/21 10:11 Oxygen Delivery Method Room Air Weight: 170 lb Body Mass Index (BMI) 29.2 Lab / Micro Data Micro: Microbiology 12/07/21 10:00 Wound Abcess - Heel Right Gram Stain - Final 12/07/21 10:00 Wound Abcess - Heel Right Wound Culture - Final Pseudomonas aeroginosa 12/07/21 10:00 Wound Abcess - Heel Right Anaerobic Culture - Final No growth in 5 days. 12/07/21 10:05 Wound Abcess - Buttock Gram Stain - Final 12/07/21 10:05 Wound Abcess - Buttock Wound Culture - Final No growth aerobically. 12/07/21 10:05 Wound Abcess - Buttock Anaerobic Culture - Final No growth in 5 days. Charges/Coding Procedures Integumentary 111xxx-113xx: 25178 Jackie subq tissue 20 sq cm/< Physical Exam Const alert, no apparent distress and healthy appearing General Appearance: cooperative, comfortable and well kempt HEENT Head and Scalp: normocephalic and atraumatic Eyes EOMs intact bilaterally Neck supple and no JVD Resp normal respiratory effort, normal air movement and no use of accessory muscles Extremity normal capillary refill, no joint enlargement, no calf tenderness and no pedal edema General Extremity: edema right lower extremity mild (right heel ); Negative for clubbing or cyanosis Peripheral Pulses: Yes dorsalis pedis pulses present right 2+ Skin Wounds: wounds noted No malodorous Wound Narrative: Coccygeal ulcer with 1-11 o'clock undermining. Subcutaneous layer exposed. Wound opening is very small, and it is not possible to visualize wound bed. No noted probing to bone. No purulent or malodorous drainage. No periulcer erythema, warmth, or tenderness. Right heel ulcer with moderate amount of slough and devitalized tissue. Subcutaneous layer exposed. No tunneling, undermining, or probing to bone. Mild periulcer erythema. Tenderness to palpation/debridement. Mild edema/fluctuance of right heel. No purulent/malodorous drainage. Neuro oriented x3, moves all extremities and no focal motor deficits Psych mental status grossly normal, cooperative and affect normal Debridement Note Debridement Note Wound debrided: Right heel ulcer Laterality: Right Type of Debridement: Excisional debridement Anesthesia Used: 4% Lidocaine Solution Depth: in the subcutaneous layer Percentage of wound debrided: 100 Instrument Used: 3mm curette Tissue Removed: Slough and devitalized tissue Severity: Fat Layer Exposed Amount of bleeding with debridement: Mild Bleeding Controlled with: Pressure Patient tolerated procedure: Patient tolerated procedure well Post-Debridement Measurements and Additional Note: Post-Debridement Measurements/Treatment WC - Nurse 1 - General Ulcer Assessment Start: 12/07/21 09:06 Freq: Status: Active Protocol: MONIQUE Activity Type Activity Date Activity User E-Sign Co-Sign Detail Recorded Client Recorded Date Recorded By Document 12/07/21 09:06 [facility] [id number] 12/07/21 09:29 [facility] Edit Result 12/07/21 09:06 BMF (1) [id number] 12/07/21 09:40 BMF Document 12/14/21 10:11 AK [id number] 12/14/21 10:15 AK (1) Right - Posterior Tibial Palpable => No - Posterior Tibial Doppler => Monophasic - Dorsalis Pedis Palpable => Yes - Dorsalis Pedis Doppler => Monophasic - Extremity Color => Hyperpigmented - Hair Growth on Legs => No - Hair Growth on Toes => No - Temperature of Extremity => Cool - Other Deformity => No - Prior Foot Ulcer => No - Charcot Joint => No - Prior Amputation => No - Thick => No - Discolored => No - Deformed => No - Improper Length & Hygeine => No Left - Posterior Tibial Palpable => No - Posterior Tibial Doppler => Monophasic - Dorsalis Pedis Palpable => Yes - Dorsalis Pedis Doppler => Monophasic - Extremity Color => Hyperpigmented - Hair Growth on Legs => No - Hair Growth on Toes => No - Temperature of Extremity => Cool - Other Deformity => No - Prior Foot Ulcer => No - Charcot Joint => No - Prior Amputation => No - Thick => No - Discolored => No - Deformed => No - Improper Length & Hygeine => No Feet - Top Side and Bottom => <Entered> (a) 12/07/21 12/14/21 09:06 10:11 WC - Today's Visit Information Type of service Initial Visit Follow-up Visit (Physician/MAITRE D' ) Arrival Mode Wheelchair Wheelchair Transfer Assistance Other Manual Transfer Assist (Other) 2 assist Accompanied by daughter Patient Identification Verified (Name & Yes Yes ) Patient Requires Transmission-Based No No Precautions Safety Precautions NA Height and Weight Height 5 ft 4 in Weight 170 lb Weight in Pounds 170.0 lbs Weight Measurement Method Stated by Patient Body Mass Index (BMI) 29.2 29.2 BMI Classification Overweight Overweight BSA - Brooke 1.83 Temperature (97.8 F-99.1 F) 96 F L Temperature Source Temporal Vital Signs Pulse Rate (60-100) 73 78 Pulse Location Monitor Monitor Respiratory Rate (12-18) 16 Respiratory rate source Observation Oxygen Delivery Method Room Air Blood Pressure (90/60-120/80) 100/40 L 96/44 L Blood Pressure Mean (mm Hg) 60 61 Source Monitor Monitor Position Supine Blood Pressure Location Right Arm Right Arm Comment BP has been low lately. She said is aware Have you changed medications since your No last visit? Any new allergies or adverse reactions No Had a fall/change in ADL's that may No increase risk of falls Signs or symptoms of abuse and/or No neglect since last visit Have you been in the hospital since your No last visit? Has dressing in place as prescribed Yes Has compression in place as prescribed N/A Has offloadiing in place as prescribed N/A Experienced any changes in pain level or No management History Since Last Visit- (Skip if this is Patient's initial visit) Left Footwear Regular Shoe Slipper Right Footwear Regular Shoe Slipper Pain Scale: 0-10 Numeric Is Patient Pain Free? Yes Yes Lower Extremity Assessment/ Foot Assessment/ Toe Nail Assessment Right -Posterior Tibial Palpable No -Posterior Tibial Doppler Monophasic -Dorsalis Pedis Palpable Yes -Dorsalis Pedis Doppler Monophasic -Extremity Color Hyperpigmented -Hair Growth on Legs No -Hair Growth on Toes No -Temperature of Extremity Cool -Other Deformity No -Prior Foot Ulcer No -Charcot Joint No -Prior Amputation No -Thick No -Discolored No -Deformed No -Improper Length & Hygeine No Left -Posterior Tibial Palpable No -Posterior Tibial Doppler Monophasic -Dorsalis Pedis Palpable Yes -Dorsalis Pedis Doppler Monophasic -Extremity Color Hyperpigmented -Hair Growth on Legs No -Hair Growth on Toes No -Temperature of Extremity Cool -Other Deformity No -Prior Foot Ulcer No -Charcot Joint No -Prior Amputation No -Thick No -Discolored No -Deformed No -Improper Length & Hygeine No Neuropathy Assessment Feet - Top Side and Bottom <Entered> (a) Communication Assessment Preferred language Dominican [employer]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 No Able to Read Yes Able to Write Yes Communication Tools None Right Hearing Abillity Hard of Hearing Left Hearing Abillity Hard of Hearing Visual Assistive Devices Glasses Teaching Assessment Preferences Verbal,Written, Audio/Visual, Demonstration Barriers to Learning None Readiness To Learn Excellent Willingness to Engage in Self Management High Activies Readiness to Engage in Self Management High Activities Anxiety Level Calm Cooperation Cooperative Perception Coherent Interest in Health Problem Asks Questions Education Importance Acknowledges Need Does Patient Smoke tobacco or other No substances Smoking Status Former smoker Is Patient Diabetic Yes Functional Assessment Recent Decline in Ability to Perform Denies Any Declines Culture/Scientology/Customer Operations Manager Cultural/Scientology Needs that may affect No Treatment Plan Teaching: Wound Center *Welcome to the Wound Center -Person Taught Patient,Family -Teaching Method Discussion -Response to teaching Verbalize understanding Welcome to the [facility] [place] (a) 1 - + WC - Nurse 1 - General Ulcer Measurement Start: 12/07/21 09:06 Freq: Status: Active Protocol: Activity Type Activity Date Activity User E-Sign Co-Sign Detail Recorded Client Recorded Date Recorded By Document 12/07/21 09:06 [facility] [id number] 12/07/21 09:29 [facility] Document 12/14/21 10:11 AK [id number] 12/14/21 10:15 AK 12/07/21 12/14/21 09:06 10:11 Wound Center Nurse 1 #2- COCCYX -Combined with other wound No No -Current Size (cm) - Length 0.3 0.1 -Current Size (cm) - Width 0.2 0.1 -Current Size (cm) - Depth 0.6 0.4 -Total Square Cm 0.06 0.01 -Date of Last Picture (Recall this 12/07/21 field) -Photo Taken Yes No -Epithelialization None Present None Present -Tunneling No No -Undermining/Tunneling Yes No -Undermining/Tunneling Starts (O'clock 12 ) -Undermining/Tunneling Ends (O'clock) 12 -Maximum Distance (cm) 0.5 -Circular Undermining No No -Change in Wound Grade/Stage No -Exudate Amt Small Small -Exudate Type Serosanguineous Serosanguineous -Wound Margin Distinct, Distinct, Outline Outline Attached Attached -Granulation Amt Large (67-100%) None Present (0 %) -Granulation Quality Red N/A -Slough/Fibrin No No -Necrosis Amt None Present (0 None Present (0 %) %) -Structure Exposed N/A -Texture (Hanna-wound Skin Appearance) Assessed, Assessed, Scarring Scarring -Moisture (Hanna-wound Skin Appearance) Assessed No Abnormality, Assessed -Color (Hanna-wound Skin Appearance) Assessed No Abnormality, Assessed -Temperature (Hanna-wound Skin No Abnormality No Abnormality Appearance) (Pt Warm) (Pt Warm) -Tenderness on Palpation (Hanna-wound No No Skin Appearance) -Ulcer Cleansing Rinsed/ Rinsed/ Irrigated with Irrigated with Saline Saline -Foul Odor after Cleansing No No -Anesthetic Used 5% Lidocaine 4% Lidocaine Gel Solution #1- R HEEL -Combined with other wound No No -Current Size (cm) - Length 1.3 1 -Current Size (cm) - Width 0.8 0.5 -Current Size (cm) - Depth 0.1 0.1 -Total Square Cm 1.04 0.5 -Date of Last Picture (Recall this 12/07/21 field) -Photo Taken Yes No -Epithelialization None Present Medium 34-66% -Tunneling No No -Undermining/Tunneling No No -Circular Undermining No No -Change in Wound Grade/Stage No -Exudate Amt None Present None Present -Wound Margin Distinct, Distinct, Outline Outline Attached Attached -Granulation Amt None Present (0 Large (67-100%) %) -Granulation Quality [place] -Slough/Fibrin Yes No -Necrosis Amt Large (67-100%) None Present (0 %) -Necrotic Tissue Type Adherent Slough -Structure Exposed N/A -Texture (Hanna-wound Skin Appearance) Assessed, No Abnormality, Scarring Assessed -Moisture (Hanna-wound Skin Appearance) Assessed,Dry/ No Abnormality, Scaly Assessed -Color (Hanna-wound Skin Appearance) Assessed, No Abnormality, Erythema Assessed -Temperature (Hanna-wound Skin No Abnormality No Abnormality Appearance) (Pt Warm) (Pt Warm) -Tenderness on Palpation (Hanna-wound Yes Yes Skin Appearance) -Ulcer Cleansing Rinsed/ Rinsed/ Irrigated with Irrigated with Saline Saline -Foul Odor after Cleansing No No -Anesthetic Used 5% Lidocaine 4% Lidocaine Gel Solution WC - Nurse 2 - General Ulcer CM Notes Start: 12/07/21 09:06 Freq: Status: Active Protocol: Activity Type Activity Date Activity User E-Sign Co-Sign Detail Recorded Client Recorded Date Recorded By Document 12/07/21 16:00 PL [id number] 12/08/21 16:05 PL Document 12/14/21 11:11 PL [id number] 12/14/21 11:14 PL 12/07/21 12/14/21 16:00 11:11 Wound Center Nurse 2 #2- COCCYX -Time 09:44 10:10 -Correct Patient Yes Yes -Correct Side, Site, Position Yes Yes -Correct Procedure Yes Yes -Procedure Performed Yes Yes -Type of Procedure Debridement Debridement -Clinical Debridement Subcutaneous Subcutaneous -Tissue Removed Subcutaneous Subcutaneous -Post Debridement (cm) - Length 0.3 0.3 -Post Debridement (cm) - Width 0.3 0.3 -Post Debridement (cm) - Depth 1.3 1.0 -Total Square (Post) (cm) 0.09 0.09 -Area of Debridement (cm) - Length 0.3 0.3 -Area of Debridement (cm) - Width 0.3 0.3 -Total Square (Area) (cm) 0.09 0.09 -Tunneling No No -Undermining/Tunneling Yes No -Undermining/Tunneling Starts (O'clock 12 ) -Undermining/Tunneling Ends (O'clock) 12 -Maximum Distance (cm) 0.4 -Circular Undermining Yes No -Wound/Ulcer Outcome Not Healed Not Healed -Ulcer Cleansing Rinsed/ Rinsed/ Irrigated with Irrigated with Saline Saline -Foul Odor after Cleansing No No -Bioengineered Tissue No No -Debridement - Subq, 1st 20sq cm No No #1- R HEEL -Time 09:44 10:10 -Correct Patient Yes Yes -Correct Side, Site, Position Yes Yes -Correct Procedure Yes Yes -Procedure Performed Yes Yes -Type of Procedure Debridement Debridement -Clinical Debridement Subcutaneous Subcutaneous -Tissue Removed Subcutaneous Subcutaneous -Post Debridement (cm) - Length 1.1 0.5 -Post Debridement (cm) - Width 0.8 0.5 -Post Debridement (cm) - Depth 0.1 0.1 -Total Square (Post) (cm) 0.88 0.25 -Area of Debridement (cm) - Length 1.1 0.5 -Area of Debridement (cm) - Width 0.8 0.5 -Total Square (Area) (cm) 0.88 0.25 -Tunneling No No -Undermining/Tunneling No No -Circular Undermining No No -Wound/Ulcer Outcome Not Healed Not Healed -Ulcer Cleansing Rinsed/ Rinsed/ Irrigated with Irrigated with Saline Saline -Foul Odor after Cleansing No No -Bioengineered Tissue No No -Bleeding Controlled with Pressure -Treatment Response Procedure Tolerated Well -Debridement - Subq, 1st 20sq cm Yes Yes Pain Scale: 0-10 Numeric Is Patient Pain Free? Yes Yes WC - Nurse 3 - General Ulcer D/C NN Start: 12/07/21 09:06 Freq: Status: Active Protocol: Activity Type Activity Date Activity User E-Sign Co-Sign Detail Recorded Client Recorded Date Recorded By Document 12/07/21 16:00 PL [id number] 12/08/21 16:05 PL Document 12/14/21 10:52 AK [id number] 12/14/21 10:54 AK 12/07/21 12/14/21 16:00 10:52 Pain Scale: 0-10 Numeric Is Patient Pain Free? Yes No Teaching: Wound Center *Welcome to the Wound Center -Person Taught Patient,Family -Teaching Method Discussion -Response to teaching Verbalize understanding Wound Care Nurse 3 #2- COCCYX -Ulcer Cleansing Rinsed/ Rinsed/ Irrigated with Irrigated with Saline Saline -Foul Odor after Cleansing No No -Negative Pressure Wound Therapy N/A -Primary Dressing Applied Aquacel AG 4x4, Mepilex Border, Mepilex Border Promogran Milana Matter -Aquacel AG 4x4 1 -Melgisorb AG 1 -Mepilex Border 1 1 -Promogran Milana Matter 1 #1- R HEEL -Ulcer Cleansing Rinsed/ Rinsed/ Irrigated with Irrigated with Saline Saline -Foul Odor after Cleansing No No -Negative Pressure Wound Therapy N/A -Primary Dressing Applied Promogran Aquacel AG 4x4 Milana Matter -Other Dressing ABD ABD nurses hat -Primary Dressing Covered/Secured with Dry Gauze & Dry Gauze & Roll Gauze, Roll Gauze, Secured with Secured with Tape Tape -Aquacel AG 4x4 1 -Promogran Milana Matter 1 WC - Visit Discharge Discharge Condition Stable Stable Ambulatory Status Wheelchair Wheelchair Transportation Private Auto Private Auto Accompanied by caregiver Medication Reconcilliation completed & Yes provided to patient/care provider Clinical Summary of Care Provided Yes Additional Wound Wound debrided: Coccygeal ulcer Laterality: Not Applicable Wound Grade/Stage: Suspected stage III Type of Debridement: Excisional debridement Anesthesia Used: 4% Lidocaine Solution Depth: in the subcutaneous layer Percentage of wound debrided: 100 Instrument Used: - (1 mm curette) Tissue Removed: Slough and devitalized tissue Severity: Fat Layer Exposed Amount of bleeding with debridement: Mild Bleeding Controlled with: Pressure Patient tolerated procedure: Patient tolerated procedure well Assessment/Plan Assessment/Plan (1) 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, stage 2: CODE(S): E11.621 - Type 2 diabetes mellitus with foot ulcer; L89.602 - Pressure ulcer of unspecified heel, stage 2 (2) Decubitus ulcer of coccygeal region, stage 3: CODE(S): L89.153 - Pressure ulcer of sacral region, stage 3 (3) Type 2 diabetes mellitus with skin complication, without long-term current use of insulin: CODE(S): E11.628 - Type 2 diabetes mellitus with other skin complications QUALIFIERS: Diabetes mellitus complication detail: with foot ulcer Qualified Code(s): E11.621 - Type 2 diabetes mellitus with foot ulcer; L97.509 - Non-pressure chronic ulcer of other part of unspecified foot with unspecified severity (4) Impaired mobility: CODE(S): Z74.09 - Other reduced mobility PLAN: Debridement performed today in clinic as annotated above. Aquacel Ag applied to the right heel ulcer. Milana applied to the coccygeal ulcer. At home wound-care instructions: We will order home health care to perform dressing changes 3 times weekly. Change dressing once daily or more frequently as needed due to contamination. Wash wounds daily with antibacterial soap and water, rinse and dry thoroughly before each dressing change. Apply gentamicin topical ointment to the wound bed of the heel ulcer prior to applying Aquacel Ag. Compression: Single-layer Tubigrip applied to the right lower extremity. Patient instructed to wear this daily. Off-loading: The patient was instructed to avoid pressure and friction on the affected areas. Offloading mechanisms discussed with the patient and daughter. Reposition every 2 hours at minimum. Avoid prolonged standing and/or dangling of legs. When seated, feet should be elevated at chest level. Frequent ambulation is encouraged. Diet: Patient encouraged to increase protein intake while taking caution to avoid high carbohydrate and/or sugar intake. Patient's daughter has purchased boost and Glucerna shakes for her to use. Labs/cultures/imaging: Patient's right heel ulcer grew Pseudomonas; due to the fluctuance and pain in the patient's right heel, I will have her begin the ciprofloxacin 250 mg every 12 hours x7 days. Patient's labs from 12/10/2021 were reviewed and significant as follows: CBCD: RBC 4.07, hemoglobin 10.7, hematocrit 34 ESR: 80 CMP: Sodium 135, BUN 46, creatinine 1.37, estimated GFR 39, glucose 128 Hemoglobin A1c: 6.4% CRP: 50.10 Prealbumin: 17.1 Follow-up: Return to clinic in 1 week for re-evaluation. Return sooner or report to the emergency room should symptoms worsen, or new symptoms arise. Note: [employer] speech recognition euclid operator software was used to create portions of this document. Sound-alike and misspelled words, as well as other euclid operator errors may be contained in the documentation.
[2021-12-21 10:18] VITALS: BP 118/49; PULSE 75; TEMP 36.2; BMI 29.2
--- NOTE | 2021-12-21 14:33 | PN.PCM_ITS ---
History of Present Illness Date of Service: 12/21/21 Chief Complaint: Right heel and coccyx ulcers History of Wound: The patient is a pleasant 81-year-old female who [facility]) for evaluation of a right heel ulcer and coccygeal ulcer. She has a past medical history significant for ruptured polyp s/p colostomy and colostomy reversal, type 2 diabetes mellitus, CKD stage 3B, congestive heart failure, coronary artery disease status post stent placement, right bundle branch block, nonrheumatic aortic stenosis, hypertension, and hyperlipidemia. She is allergic to iodinated contrast. She does not use tobacco. She presents today with her daughter, who provides most of her history. Both of these ulcers have been ongoing for approximately a year. Apparently, these began following a hospitalization. She has not had any imaging or culture s of her ulcers. She was recently hospitalized for suspected bilateral pneumonia and acute on chronic CHF, and treated with antibiotics (vancomycin and Zosyn). She completed an oral Z-Mani prior to her admission. She was discharged home following hospitalization, and is receiving [facility] home health care with once weekly nursing visits. Her children are also aiding in her care. Her recent lab work from 12/04/2021 was significant for the following: CBC: Hemoglobin 11.0, hematocrit 35.3 BMP: Sodium 135, BUN 33, creatinine 1.28, estimated GFR 43, glucose 122 CMP from 10/16/2021 revealed no evidence of liver disease. Venous studies of the bilateral lower extremities from 06/25/2021 were unremarkable. The patient's daughter reports that they have been using Milana dressing changes approximately 3 times per week to the coccygeal ulcer and covering with Allevyn dressing. She reports she has not noticed any significant drainage from the coccygeal ulcer. The patient's heel ulcer has been scabbed over with dried slough/eschar, and they have been cleansing it but not covering with a dressing. They encouraged the patient to avoid pressure on her heel. She wears BiPAP at night and is unable to lay on her side, so she is always laying on her back in bed. They have wedges for offloading, though these have not been useful in the past. She spends most of her day sitting in a chair, and does not use a offloading cushion. She does not often develop significant swelling in her lower extremities. The patient denies fever, chills, general malaise, or poor appetite. The patient has not had increased redness, swelling, or purulent/malodorous drainage from affected area. Progress of Wound: The patient's heel ulcer is improved in size and appearance. She is tolerating Aquacel Ag well. The tenderness of her left heel has improved in the past week. She tolerated ciprofloxacin well, and has completed this antibiotic. The patient denies fever, chills, general malaise, or poor appetite. The patient has not had increased redness or purulent/malodorous drainage from affected area. Patient's coccygeal ulcer is unchanged from her last visit. She is tolerating Milana well. Objective Data Objective Data Vital Signs: Vital Signs Temp Pulse Resp BP 97.2 F L 75 16 118/49 L 12/21/21 10:18 12/21/21 10:18 12/07/21 09:06 12/21/21 10:18 Oxygen Delivery Method Room Air Weight: 170 lb Body Mass Index (BMI) 29.2 Lab / Micro Data Micro: Microbiology 12/07/21 10:00 Wound Abcess - Heel Right Gram Stain - Final 12/07/21 10:00 Wound Abcess - Heel Right Wound Culture - Final Pseudomonas aeroginosa 12/07/21 10:00 Wound Abcess - Heel Right Anaerobic Culture - Final No growth in 5 days. 12/07/21 10:05 Wound Abcess - Buttock Gram Stain - Final 12/07/21 10:05 Wound Abcess - Buttock Wound Culture - Final No growth aerobically. 12/07/21 10:05 Wound Abcess - Buttock Anaerobic Culture - Final No growth in 5 days. Charges/Coding Procedures Integumentary [id number]: [id number] Jackie subq tissue 20 sq cm/< Physical Exam Const alert, no apparent distress and healthy appearing General Appearance: cooperative, comfortable and well kempt HEENT Head and Scalp: normocephalic and atraumatic Eyes EOMs intact bilaterally Neck supple and no JVD Resp normal respiratory effort, normal air movement and no use of accessory muscles Extremity normal capillary refill, no joint enlargement, no calf tenderness and no pedal edema General Extremity: edema right lower extremity mild (right heel ); Negative for clubbing or cyanosis Peripheral Pulses: Yes dorsalis pedis pulses present right 2+ Skin Wounds: wounds noted No malodorous Wound Narrative: Coccygeal ulcer with 1-11 o'clock undermining. Subcutaneous layer exposed. Wound opening is very small, and it is not possible to visualize wound bed. No noted probing to bone. No purulent or malodorous drainage. No periulcer erythema, warmth, or tenderness. Right heel ulcer with large amounts of callus; small amount of slough in wound bed. Subcutaneous layer exposed. No tunneling, undermining, or probing to bone. Mild periulcer erythema. Tenderness to palpation/debridement. No purulent/malodorous drainage. Neuro oriented x3, moves all extremities and no focal motor deficits Psych mental status grossly normal, cooperative and affect normal Debridement Note Debridement Note Wound debrided: Coccygeal ulcer Laterality: Not Applicable Type of Debridement: Excisional debridement Anesthesia Used: 4% Lidocaine Solution Depth: in the subcutaneous layer Percentage of wound debrided: 100 Instrument Used: 3mm curette Tissue Removed: Slough and devitalized tissue Severity: Fat Layer Exposed Amount of bleeding with debridement: Mild Bleeding Controlled with: Pressure Patient tolerated procedure: Patient tolerated procedure well Post-Debridement Measurements and Additional Note: Post-Debridement Measurements/Treatment WC - Nurse 1 - General Ulcer Assessment Start: 12/07/21 09:06 Freq: Status: Active Protocol: MONIQUE Activity Type Activity Date Activity User E-Sign Co-Sign Detail Recorded Client Recorded Date Recorded By Document 12/07/21 09:06 [facility] [id number] 12/07/21 09:29 BM Edit Result 12/07/21 09:06 BMF (1) [id number] 12/07/21 09:40 BMF Document 12/14/21 10:11 AK [id number] 12/14/21 10:15 AK Document 12/21/21 10:18 AK [id number] 12/21/21 10:32 AK (1) Right - Posterior Tibial Palpable => No - Posterior Tibial Doppler => Monophasic - Dorsalis Pedis Palpable => Yes - Dorsalis Pedis Doppler => Monophasic - Extremity Color => Hyperpigmented - Hair Growth on Legs => No - Hair Growth on Toes => No - Temperature of Extremity => Cool - Other Deformity => No - Prior Foot Ulcer => No - Charcot Joint => No - Prior Amputation => No - Thick => No - Discolored => No - Deformed => No - Improper Length & Hygeine => No Left - Posterior Tibial Palpable => No - Posterior Tibial Doppler => Monophasic - Dorsalis Pedis Palpable => Yes - Dorsalis Pedis Doppler => Monophasic - Extremity Color => Hyperpigmented - Hair Growth on Legs => No - Hair Growth on Toes => No - Temperature of Extremity => Cool - Other Deformity => No - Prior Foot Ulcer => No - Charcot Joint => No - Prior Amputation => No - Thick => No - Discolored => No - Deformed => No - Improper Length & Hygeine => No Feet - Top Side and Bottom => <Entered> (a) 12/07/21 12/14/21 12/21/21 09:06 10:11 10:18 WC - Today's Visit Information Type of service Initial Visit Follow-up Visit Follow-up Visit (Physician/COW TESTER (Physician/COW TESTER ) ) Arrival Mode Wheelchair Wheelchair Wheelchair Transfer Assistance Other Manual Transfer Assist (Other) 2 assist Accompanied by daughter Patient Identification Verified (Name & Yes Yes Yes ) Patient Requires Transmission-Based No No No Precautions Safety Precautions NA NA Height and Weight Height 5 ft 4 in Weight 170 lb Weight in Pounds 170.0 lbs Weight Measurement Method Stated by Patient Body Mass Index (BMI) 29.2 29.2 29.2 BMI Classification Overweight Overweight Overweight BSA - Brooke 1.83 Temperature (97.8 F-99.1 F) 96 F L 97.2 F L Temperature Source Temporal Temporal Vital Signs Pulse Rate (60-100) 73 78 75 Pulse Location Monitor Monitor Monitor Respiratory Rate (12-18) 16 Respiratory rate source Observation Oxygen Delivery Method Room Air Blood Pressure (90/60-120/80) 100/40 L 96/44 L 118/49 L Blood Pressure Mean (mm Hg) 60 61 72 Source Monitor Monitor Monitor Position Supine Blood Pressure Location Right Arm Right Arm Comment BP has been low lately. She said is aware Have you changed medications since your No No last visit? Any new allergies or adverse reactions No No Had a fall/change in ADL's that may No No increase risk of falls Signs or symptoms of abuse and/or No No neglect since last visit Have you been in the hospital since your No No last visit? Has dressing in place as prescribed Yes Yes Has compression in place as prescribed N/A N/A Has offloadiing in place as prescribed N/A N/A Experienced any changes in pain level or No No management History Since Last Visit- (Skip if this is Patient's initial visit) Left Footwear Regular Shoe Slipper Regular Shoe Right Footwear Regular Shoe Slipper Regular Shoe Pain Scale: 0-10 Numeric Is Patient Pain Free? Yes Yes No Lower Extremity Assessment/ Foot Assessment/ Toe Nail Assessment Right -Posterior Tibial Palpable No -Posterior Tibial Doppler Monophasic -Dorsalis Pedis Palpable Yes -Dorsalis Pedis Doppler Monophasic -Extremity Color Hyperpigmented -Hair Growth on Legs No -Hair Growth on Toes No -Temperature of Extremity Cool -Other Deformity No -Prior Foot Ulcer No -Charcot Joint No -Prior Amputation No -Thick No -Discolored No -Deformed No -Improper Length & Hygeine No Left -Posterior Tibial Palpable No -Posterior Tibial Doppler Monophasic -Dorsalis Pedis Palpable Yes -Dorsalis Pedis Doppler Monophasic -Extremity Color Hyperpigmented -Hair Growth on Legs No -Hair Growth on Toes No -Temperature of Extremity Cool -Other Deformity No -Prior Foot Ulcer No -Charcot Joint No -Prior Amputation No -Thick No -Discolored No -Deformed No -Improper Length & Hygeine No Neuropathy Assessment Feet - Top Side and Bottom <Entered> (a) Communication Assessment Preferred language [place] Cigarette [employer] Filter Chief Inspector Required No Able to Read Yes Able to Write Yes Communication Tools None Right Hearing Abillity Hard of Hearing Left Hearing Abillity Hard of Hearing Visual Assistive Devices Glasses Teaching Assessment Preferences Verbal,Written, Audio/Visual, Demonstration Barriers to Learning None Readiness To Learn Excellent Willingness to Engage in Self Management High Activies Readiness to Engage in Self Management High Activities Anxiety Level Calm Cooperation Cooperative Perception Coherent Interest in Health Problem Asks Questions Education Importance Acknowledges Need Does Patient Smoke tobacco or other No substances Smoking Status Former smoker Is Patient Diabetic Yes Functional Assessment Recent Decline in Ability to Perform Denies Any Declines Culture/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/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 Cultural/Tenriism Needs that may affect No Treatment Plan Teaching: Wound Center *Welcome to the Wound Center -Person Taught Patient,Family -Teaching Method Discussion -Response to teaching Verbalize understanding Welcome to the [facility] [place]an (a) 1 - + WC - Nurse 1 - General Ulcer Measurement Start: 12/07/21 09:06 Freq: Status: Active Protocol: Activity Type Activity Date Activity User E-Sign Co-Sign Detail Recorded Client Recorded Date Recorded By Document 12/07/21 09:06 [facility] [id number] 12/07/21 09:29 [facility] Document 12/14/21 10:11 AK [id number] 12/14/21 10:15 AK Document 12/21/21 10:18 AK [id number] 12/21/21 10:32 AK 12/07/21 12/14/21 12/21/21 09:06 10:11 10:18 Wound Center Nurse 1 #2- COCCYX -Combined with other wound No No No -Current Size (cm) - Length 0.3 0.1 0.1 -Current Size (cm) - Width 0.2 0.1 0.1 -Current Size (cm) - Depth 0.6 0.4 0.7 -Total Square Cm 0.06 0.01 0.01 -Date of Last Picture (Recall this 12/07/21 field) -Photo Taken Yes No No -Epithelialization None Present None Present -Tunneling No No No -Undermining/Tunneling Yes No No -Undermining/Tunneling Starts (O'clock 12 ) -Undermining/Tunneling Ends (O'clock) 12 -Maximum Distance (cm) 0.5 -Circular Undermining No No No -Change in Wound Grade/Stage No No -Exudate Amt Small Small Small -Exudate Type Serosanguineous Serosanguineous Serosanguineous -Wound Margin Distinct, Distinct, Distinct, Outline Outline Outline Attached Attached Attached -Granulation Amt Large (67-100%) None Present (0 Small (1-33%) %) -Granulation Quality Red N/A N/A -Slough/Fibrin No No No -Necrosis Amt None Present (0 None Present (0 None Present (0 %) %) %) -Structure Exposed N/A N/A -Texture (Hanna-wound Skin Appearance) Assessed, Assessed, No Abnormality, Scarring Scarring Assessed -Moisture (Hanna-wound Skin Appearance) Assessed No Abnormality, No Abnormality, Assessed Assessed -Color (Hanna-wound Skin Appearance) Assessed No Abnormality, No Abnormality, Assessed Assessed -Temperature (Hanna-wound Skin No Abnormality No Abnormality No Abnormality Appearance) (Pt Warm) (Pt Warm) (Pt Warm) -Tenderness on Palpation (Hanna-wound No No No Skin Appearance) -Ulcer Cleansing Rinsed/ Rinsed/ Rinsed/ Irrigated with Irrigated with Irrigated with Saline Saline Saline -Foul Odor after Cleansing No No No -Anesthetic Used 5% Lidocaine 4% Lidocaine 4% Lidocaine Gel Solution Solution #1- R HEEL -Combined with other wound No No No -Current Size (cm) - Length 1.3 1 1 -Current Size (cm) - Width 0.8 0.5 1.6 -Current Size (cm) - Depth 0.1 0.1 0.1 -Total Square Cm 1.04 0.5 1.6 -Date of Last Picture (Recall this 12/07/21 field) -Photo Taken Yes No No -Epithelialization None Present Medium 34-66% -Tunneling No No No -Undermining/Tunneling No No No -Circular Undermining No No No -Change in Wound Grade/Stage No No -Exudate Amt None Present None Present Small -Exudate Type Serosanguineous -Wound Margin Distinct, Distinct, Distinct, Outline Outline Outline Attached Attached Attached -Granulation Amt None Present (0 Large (67-100%) None Present (0 %) %) -Granulation Quality Lamar N/A -Slough/Fibrin Yes No No -Necrosis Amt Large (67-100%) None Present (0 None Present (0 %) %) -Necrotic Tissue Type Adherent Slough -Structure Exposed N/A N/A -Texture (Hanna-wound Skin Appearance) Assessed, No Abnormality, Assessed,Callus Scarring Assessed -Moisture (Hanna-wound Skin Appearance) Assessed,Dry/ No Abnormality, No Abnormality, Scaly Assessed Assessed -Color (Hanna-wound Skin Appearance) Assessed, No Abnormality, No Abnormality, Erythema Assessed Assessed -Temperature (Hanna-wound Skin No Abnormality No Abnormality No Abnormality Appearance) (Pt Warm) (Pt Warm) (Pt Warm) -Tenderness on Palpation (Hanna-wound Yes Yes No Skin Appearance) -Ulcer Cleansing Rinsed/ Rinsed/ Rinsed/ Irrigated with Irrigated with Irrigated with Saline Saline Saline -Foul Odor after Cleansing No No No -Anesthetic Used 5% Lidocaine 4% Lidocaine 4% Lidocaine Gel Solution Solution Lower Limb Edema Present No WC - Nurse 2 - General Ulcer CM Notes Start: 12/07/21 09:06 Freq: Status: Active Protocol: Activity Type Activity Date Activity User E-Sign Co-Sign Detail Recorded Client Recorded Date Recorded By Document 12/07/21 16:00 PL [id number] 12/08/21 16:05 PL Document 12/14/21 11:11 PL [id number] 12/14/21 11:14 PL Document 12/21/21 13:34 PL [id number] 12/21/21 13:36 PL 12/07/21 12/14/21 12/21/21 16:00 11:11 13:34 Wound Center Nurse 2 #2- COCCYX -Time 09:44 10:10 10:49 -Correct Patient Yes Yes Yes -Correct Side, Site, Position Yes Yes Yes -Correct Procedure Yes Yes Yes -Procedure Performed Yes Yes Yes -Type of Procedure Debridement Debridement Debridement -Clinical Debridement Subcutaneous Subcutaneous Subcutaneous -Tissue Removed Subcutaneous Subcutaneous Subcutaneous -Post Debridement (cm) - Length 0.3 0.3 0.3 -Post Debridement (cm) - Width 0.3 0.3 0.3 -Post Debridement (cm) - Depth 1.3 1.0 1.0 -Total Square (Post) (cm) 0.09 0.09 0.09 -Area of Debridement (cm) - Length 0.3 0.3 0.3 -Area of Debridement (cm) - Width 0.3 0.3 0.3 -Total Square (Area) (cm) 0.09 0.09 0.09 -Tunneling No No No -Undermining/Tunneling Yes No No -Undermining/Tunneling Starts (O'clock 12 ) -Undermining/Tunneling Ends (O'clock) 12 -Maximum Distance (cm) 0.4 -Circular Undermining Yes No No -Wound/Ulcer Outcome Not Healed Not Healed Not Healed -Ulcer Cleansing Rinsed/ Rinsed/ Rinsed/ Irrigated with Irrigated with Irrigated with Saline Saline Saline -Foul Odor after Cleansing No No No -Bioengineered Tissue No No No -Bleeding Controlled with Pressure -Treatment Response Procedure Tolerated Well -Debridement - Subq, 1st 20sq cm No No Yes #1- R HEEL -Time 09:44 10:10 10:49 -Correct Patient Yes Yes Yes -Correct Side, Site, Position Yes Yes Yes -Correct Procedure Yes Yes Yes -Procedure Performed Yes Yes Yes -Type of Procedure Debridement Debridement Debridement -Clinical Debridement Subcutaneous Subcutaneous Subcutaneous -Tissue Removed Subcutaneous Subcutaneous Subcutaneous -Post Debridement (cm) - Length 1.1 0.5 0.4 -Post Debridement (cm) - Width 0.8 0.5 0.3 -Post Debridement (cm) - Depth 0.1 0.1 0.1 -Total Square (Post) (cm) 0.88 0.25 0.12 -Area of Debridement (cm) - Length 1.1 0.5 0.4 -Area of Debridement (cm) - Width 0.8 0.5 0.3 -Total Square (Area) (cm) 0.88 0.25 0.12 -Tunneling No No No -Undermining/Tunneling No No No -Circular Undermining No No No -Wound/Ulcer Outcome Not Healed Not Healed Not Healed -Ulcer Cleansing Rinsed/ Rinsed/ Rinsed/ Irrigated with Irrigated with Irrigated with Saline Saline Saline -Foul Odor after Cleansing No No No -Bioengineered Tissue No No No -Bleeding Controlled with Pressure Pressure -Treatment Response Procedure Procedure Tolerated Well Tolerated Well -Debridement - Subq, 1st 20sq cm Yes Yes No Pain Scale: 0-10 Numeric Is Patient Pain Free? Yes Yes Yes - Nurse 3 - General Ulcer D/C NN Start: 12/07/21 09:06 Freq: Status: Active Protocol: Activity Type Activity Date Activity User E-Sign Co-Sign Detail Recorded Client Recorded Date Recorded By Document 12/07/21 16:00 [id number] 12/08/21 16:05 PL Document 12/14/21 10:52 AK [id number] 12/14/21 10:54 AK Document 12/21/21 11:11 [facility] [id number] 12/21/21 11:15 [facility] 12/07/21 12/14/21 12/21/21 16:00 10:52 11:11 Pain Scale: 0-10 Numeric Is Patient Pain Free? Yes No Yes Teaching: Wound Center *Welcome to the Wound Center -Person Taught Patient,Family -Teaching Method Discussion -Response to teaching Verbalize understanding Wound Care Nurse 3 #2- COCCYX -Ulcer Cleansing Rinsed/ Rinsed/ Rinsed/ Irrigated with Irrigated with Irrigated with Saline Saline Saline -Foul Odor after Cleansing No No No -Negative Pressure Wound Therapy N/A -Primary Dressing Applied Aquacel AG 4x4, Mepilex Border, Aquacel AG 4x4, Mepilex Border Promogran Mepilex Border Milana Matter -Other Covering drsg per rb rn -Aquacel AG 4x4 1 1 -Melgisorb AG 1 -Mepilex Border 1 1 1 -Promogran Milana Matter 1 #1- R HEEL -Ulcer Cleansing Rinsed/ Rinsed/ Rinsed/ Irrigated with Irrigated with Irrigated with Saline Saline Saline -Foul Odor after Cleansing No No No -Negative Pressure Wound Therapy N/A -Primary Dressing Applied Promogran Aquacel AG 4x4 Promogran Milana Matter Milana Matter -Other Dressing ABD ABD nurses hat -Primary Dressing Covered/Secured with Dry Gauze & Dry Gauze & Dry Gauze & Roll Gauze, Roll Gauze, Roll Gauze, Secured with Secured with Secured with Tape Tape Tape -Other Covering drsg per rb rn -Aquacel AG 4x4 1 -Promogran Milana Matter 1 1 BLE -Tubular Bandage Single Layer -Size of Tubigrip Used Size D -Size D ($) 2 Treatment Response Procedure Tolerated Well WC - Visit Discharge Discharge Condition Stable Stable Stable Ambulatory Status Wheelchair Wheelchair Transportation Private Auto Private Auto Private Auto Accompanied by caregiver GR YESSICA Medication Reconcilliation completed & Yes provided to patient/care provider Clinical Summary of Care Provided Yes Additional Wound Wound debrided: Left heel ulcer Laterality: Left Type of Debridement: Excisional debridement Anesthesia Used: 5% Lidocaine Gel Depth: in the subcutaneous layer Percentage of wound debrided: 100 Instrument Used: 3mm curette Tissue Removed: Slough and devitalized tissue Severity: Fat Layer Exposed Amount of bleeding with debridement: Mild Bleeding Controlled with: Pressure Patient tolerated procedure: Patient tolerated procedure well Assessment/Plan Assessment/Plan (1) 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, stage 2: CODE(S): E11.621 - Type 2 diabetes mellitus with foot ulcer; L89.602 - Pressure ulcer of unspecified heel, stage 2 (2) Decubitus ulcer of coccygeal region, stage 3: CODE(S): L89.153 - Pressure ulcer of sacral region, stage 3 (3) Type 2 diabetes mellitus with skin complication, without long-term current use of insulin: CODE(S): E11.628 - Type 2 diabetes mellitus with other skin complications QUALIFIERS: Diabetes mellitus complication detail: with foot ulcer Qualified Code(s): E11.621 - Type 2 diabetes mellitus with foot ulcer; L97.509 - Non-pressure chronic ulcer of other part of unspecified foot with unspecified severity (4) Impaired mobility: CODE(S): Z74.09 - Other reduced mobility PLAN: Debridement performed today in clinic as annotated above. Aquacel Ag packed into coccygeal ulcer. Milana applied to the left heel ulcer. Due to frequent callusing of the left heel, we will switch dressing to Milana. Coccygeal ulcer dressing will be changed to Aquacel Ag packing. At home wound-care instructions: We will order home health care to perform dressing changes 3 times weekly. Change dressing once daily or more frequently as needed due to contamination. Wash wounds daily with antibacterial soap and water, rinse and dry thoroughly before each dressing change. Perform daily dressing changes with slightly moistened Milana to the left heel ulcer. Perform daily dressing changes with Aquacel Ag packed into coccygeal ulcer. Compression: Single-layer Tubigrip applied to the right lower extremity. Patient instructed to wear this daily. Off-loading: The patient was instructed to avoid pressure and friction on the affected areas. Offloading mechanisms discussed with the patient and daughter. Reposition every 2 hours at minimum. Avoid prolonged standing and/or dangling of legs. When seated, feet should be elevated at chest level. Frequent ambulation is encouraged. Diet: Patient encouraged to increase protein intake while taking caution to avoid high carbohydrate and/or sugar intake. Patient's daughter has purchased boost and Glucerna shakes for her to use. Labs/cultures/imaging: Patient's right heel ulcer grew Pseudomonas; she completed a 7-day course of ciprofloxacin, and has had some improvement in the left heel pain. No further studies ordered today Patient's labs from 12/10/2021 were reviewed and significant as follows: CBCD: RBC 4.07, hemoglobin 10.7, hematocrit 34 ESR: 80 CMP: Sodium 135, BUN 46, creatinine 1.37, estimated GFR 39, glucose 128 Hemoglobin A1c: 6.4% CRP: 50.10 Prealbumin: 17.1 Follow-up: Return to clinic in 1 week for re-evaluation. Return sooner or report to the emergency room should symptoms worsen, or new symptoms arise. Note: [employer] speech recognition fluid designer software was used to create portions of this document. Sound-alike and misspelled words, as well as other fluid designer errors may be contained in the documentation.
== END 2021-12-24 23:59 | disposition home or self-care (01) ==
LOC: WC 10:15
PROVIDERS: PCP Family Medicine; Visit Provider Nurse Practitioner Family
DX: L89.153 Pressure ulcer of sacral region, stage 3 (principal); L89.612 Pressure ulcer of right heel, stage 2; E11.621 Type 2 diabetes mellitus with foot ulcer; I13.0 Hypertensive heart and chronic kidney disease with heart failure and stage 1 through stage 4 chronic kidney disease, or unspecified chronic kidney disease; I50.42 Chronic combined systolic (congestive) and diastolic (congestive) heart failure; I42.8 Other cardiomyopathies; E11.22 Type 2 diabetes mellitus with diabetic chronic kidney disease; N18.32 Chronic kidney disease, stage 3b; I25.10 Atherosclerotic heart disease of native coronary artery without angina pectoris; I27.21 Secondary pulmonary arterial hypertension; E78.5 Hyperlipidemia, unspecified; E03.9 Hypothyroidism, unspecified; M10.9 Gout, unspecified; K21.9 Gastro-esophageal reflux disease without esophagitis; G47.33 Obstructive sleep apnea (adult) (pediatric); I25.2 Old myocardial infarction; Z74.09 Other reduced mobility; Z79.4 Long term (current) use of insulin; Z79.82 Long term (current) use of aspirin; Z79.890 Hormone replacement therapy; Z79.899 Other long term (current) drug therapy; Z87.891 Personal history of nicotine dependence; Z95.5 Presence of coronary angioplasty implant and graft
CPT/HCPCS: 11042; 87070; 87075; 87077; 87186; 87205; 99213; G0463

== ENCOUNTER 2021-12-28 11:30 | Outpatient (RCR) | payer MEDICARE, OTHER, SELFPAY ==
[2021-12-25 00:40] VITALS: BP 118/49; PULSE 75; RESP 16; TEMP 36.2; BMI 29.2
[2021-12-28 12:03] VITALS: BP 108/56; PULSE 101; RESP 16; TEMP 35.3; BMI 29.2
== END 2022-01-15 09:30 | disposition home or self-care (01) ==
LOC: WC 11:30
PROVIDERS: PCP Family Medicine; Visit Provider Nurse Practitioner Family
DX: L89.153 Pressure ulcer of sacral region, stage 3 (principal); I13.0 Hypertensive heart and chronic kidney disease with heart failure and stage 1 through stage 4 chronic kidney disease, or unspecified chronic kidney disease; I50.9 Heart failure, unspecified; E11.22 Type 2 diabetes mellitus with diabetic chronic kidney disease; N18.32 Chronic kidney disease, stage 3b; I25.10 Atherosclerotic heart disease of native coronary artery without angina pectoris; Z95.5 Presence of coronary angioplasty implant and graft; E78.5 Hyperlipidemia, unspecified
CPT/HCPCS: 11042

== ENCOUNTER 2021-12-29 19:57 | Inpatient (IN) | payer MEDICARE, OTHER, SELFPAY ==
[2021-12-29 19:57] VITALS: BP 115/71; PULSE 92; RESP 18; TEMP 36.1; O2SAT 97; BMI 29.3
[2021-12-29 20:08] VITALS: O2SAT 95
--- NOTE | 2021-12-29 20:18 | EKG12_ITS ---
Test Reason : SOB Blood Pressure : / mmHG Vent. Rate : 093 BPM Atrial Rate : 093 BPM P-R Int : 252 ms QRS Dur : 144 ms QT Int : 392 ms P-R-T Axes : 000 -75 106 degrees QTc Int : 487 ms Sinus rhythm with 1st degree A-V block Left axis deviation Non-specific intra-ventricular conduction block Abnormal ECG Confirmed by TERRENCE JULIAN, YADY ([id number]), web editor LYNETTE FERANNDO ([id number]) on 12/31/2021 10:46:01 AM Referred By: MALU Confirmed By:YADY OCAMPO MD
--- NOTE | 2021-12-29 20:19 | EX.ED.DYSGE1 ---
HPI History of Present Illness Chief Complaint: Shortness of Breath Informant: patient and family Onset/Context/Timing Current Severity: Mild Maximum Severity: Mild Narrative Narrative: Patient present secondary to increased shortness of breath. Daughter states patient's been complaining of shortness of breath more recently. Patient states this has been ongoing for the last 2 years. About 3 weeks ago her Lasix was decreased from 40 twice daily to 40 mg daily secondary to low blood pressures. Daughter states that she is been having crackles in her lungs and is complaining of continued shortness of breath. They attempted to increase her Lasix to 40 twice daily on and Fridays but daughter does not feel that this is changed significantly. Patient was recently seen by PCP and placed on antibiotic which did not change her symptoms either. Daughter states that she is leaving the country next week and wanted to be sure her mother was evaluated prior to her leaving. [facility] Medical History Anxiety and depression Atherosclerosis of coronary artery of [place] heart without angina pectoris Chronic diastolic (congestive) heart failure Chronic respiratory failure Chronic systolic (congestive) heart failure Debility Decubitus ulcer of coccygeal region, stage 3 Depression Diverticulosis Essential hypertension Fall GERD (gastroesophageal reflux disease) Gout History of deep venous thrombosis History of pulmonary embolism History of ST elevation myocardial infarction (STEMI) (04/2013) Hyperlipemia Hypoglycemia due to type 2 diabetes mellitus Hypothyroidism Impaired mobility Insulin dependent diabetes mellitus Morbid obesity Non-ischemic cardiomyopathy Nonrheumatic aortic (valve) stenosis Obstructive sleep apnea Osteoarthritis Right bundle branch block (RBBB) 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, stage 2 Type 2 diabetes mellitus with skin complication, without long-term current use of insulin Type II diabetes mellitus Home Medications albuterol sulfate 2.5 mg INHALATION TID 06/05/19 [History Last Taken 01/29/21] aspirin 81 mg PO DAILY@0800 06/05/19 [History Last Taken 01/29/21] colchicine 0.6 mg PO PRN PRN 06/05/19 [History Last Taken Unknown] folic acid 1 mg PO DAILY 06/05/19 [History Last Taken 01/29/21] isosorbide mononitrate 60 mg PO BID 06/05/19 [History Last Taken 01/29/21] levothyroxine 75 mcg PO DAILY 06/05/19 [History Last Taken 01/29/21] metoprolol succinate 25 mg PO DAILY 06/05/19 [History Last Taken 01/29/21] nitroglycerin 0.4 mg SUBLINGUAL Q5M PRN 06/05/19 [History Last Taken Unknown] omeprazole 40 mg PO DAILY 06/05/19 [History Last Taken 01/29/21] polyethylene glycol 3350 17 g PO DAILY 06/05/19 [History Last Taken 01/29/21] simvastatin 20 mg PO QHS 06/05/19 [History Last Taken 01/29/21] methylcellulose (laxative) 850 g PO DAILY 06/29/19 [History Last Taken 01/29/21] allopurinol 300 mg tablet 300 mg PO DAILY tab 09/19/20 [History Last Taken 01/29/21] fluoxetine 40 mg capsule 40 cap PO DAILY 09/19/20 [History Last Taken 01/29/21] guaifenesin 600 mg tablet, extended release 12 hr 600 mg PO BID PRN 09/19/20 [History Last Taken 01/29/21] conjugated estrogens 0.625 mg VAGINAL MOWEFR 01/30/21 [History Last Taken 01/27/21] montelukast 10 mg PO DAILY 01/30/21 [History Last Taken 01/29/21] nystatin [Nystop] 1 applic TOPICAL BID 02/04/21 [History Last Taken Unknown] potassium chloride 40 meq PO BID 02/04/21 [History Last Taken Unknown] acetaminophen 1,000 mg PO Q6H PRN PRN tablet 02/16/21 [Rx Last Taken Unknown] fluticasone propionate 2 spray NASAL DAILY #1 02/16/21 [Rx Last Taken Unknown] menthol-zinc oxide 1 applic TOPICAL BID tube 02/16/21 [Rx Last Taken Unknown] metformin 500 mg PO BID #60 tablet 02/16/21 [Rx Last Taken Unknown] spironolactone 25 mg PO DAILY #30 tablet 02/16/21 [Rx Last Taken Unknown] furosemide 40 mg tablet 40 mg PO DAILY 30 Days #30 tab 12/10/21 [Rx Last Taken Unknown] gentamicin 0.1 % topical ointment 1 applic TOPICAL BID #15 g 12/11/21 [Rx Last Taken Unknown] ciprofloxacin HCl 250 mg PO Q12H 7 Days #14 tab 12/14/21 [Rx Last Taken Unknown] Allergy/AdvReac Type Severity Reaction Status Date / Time Iodinated Contrast Media AdvReac Hives Verified 12/29/21 20:02 [CONTRASTS] Family History Mother Heart disease Surgical History H/O coronary artery bypass surgery (01/08/05) History of bilateral knee replacement History of cholecystectomy History of colectomy History of coronary artery stent placement (08/02/15) History of herniorrhaphy Social History Smoking Status: Former smoker substance use type: does not use ROS ROS ED Constitutional Constitutional ED: Denies chills or fever(s) Eyes Eyes: Denies change in vision ENT ENT ED: Denies sore throat Cardiovascular Cardiovascular: Denies chest pain Respiratory/Chest Respiratory/Chest: Reports cough and dyspnea; Denies sputum Gastrointestinal Gastrointestinal: Denies abdominal pain, nausea or vomiting Genitourinary Genitourinary ED: Denies dysuria Musculoskeletal Musculoskeletal: Denies back pain Integumentary Denies rash Neurologic Neurologic: Denies headache(s) or weakness Allergic/Immunologic Allergic/Immunologic ED: Denies urticaria EXAM Physical Exam Const Vital Signs: 12/29/21 19:57 12/29/21 20:08 12/29/21 20:28 Temperature 97 F L Temperature Source Temporal Pulse Rate 92 Respiratory Rate 18 Respiratory Effort Short of Breath Respiratory Depth Normal Respiratory Pattern Normal Blood Pressure 115/71 100/64 Blood Pressure Mean 85 76 Pulse Ox 97 Oxygen Delivery Method Room Air Room Air Positive well nourished and well developed General Appearance ED: well developed HEENT Reports moist mucous membranes Eyes PERRL and EOMs intact bilaterally Neck supple Chest Wall inspection of chest normal and palpation of chest normal Resp normal respiratory effort Auscultation: diminished lung sounds Cardio regular rate and regular rhythm GI non-tender Palpation: soft Extremity normal to inspection General Extremety ED: Negative for edema General Extremity: Negative for edema Neuro oriented x3 Sensorium / Orientation: alert Psych mental status grossly normal Skin no rashes or lesions noted MDM MDM MDM Narrative Medical decision making narrative: EKG, chest x-ray, lab work obtained. Lab Data Attestation: I reviewed the patient's lab results. Labs: Laboratory Results - last 24 hr 12/29/21 12/29/21 12/29/21 20:15 20:15 20:15 WBC 13.4 H RBC 3.94 L Hgb 10.2 L Hct 33.3 L MCV 84.5 MCH 25.9 L MCHC 30.6 L RDW Std Deviation 56.0 H RDW Coeff of Oscar 18.4 H Plt Count 287 MPV 10.7 Immature Gran % (Auto) 0.500 Neut % (Auto) 86.2 H Lymph % (Auto) 4.1 L [place] % (Auto) 8.5 Eos % (Auto) 0.1 Baso % (Auto) 0.6 Absolute Neuts (auto) 11.5 H Absolute Lymphs (auto) 0.55 L Nucleated RBC % 0.2 Anisocytosis 1+ Microcytosis 1+ Sodium 131 L Potassium 5.5 H Chloride 99 Carbon Dioxide 22.0 Anion Gap 10 BUN 66 H Creatinine 1.69 H Estim Creat Clear Calc 22.93 Est GFR (MDRD) Af Amer 37 L Est GFR (MDRD) Non-Af 31 L BUN/Creatinine Ratio 39.1 H Glucose 178 H Calcium 9.6 Troponin I High Sens 428 H* B-Natriuretic Peptide 2365.6 H Radiography Chest X-Ray - ED: 1 View, Read by ED Physician, Chronic Changes and Cardiomegaly Diagnostic Testing: Clinical Impression(s) from Imaging Studies Chest X-Ray 12/29/21 20:28 IMPRESSION: ASHD. Elevated right hemidiaphragm and mild subsegmental atelectasis at the right base. Electronically Signed: Yoel Lopes MD at 20:54 EST , EKG Initial EKG: Attestation: I personally reviewed and interpreted this EKG as follows: Interpretation: Sinus Rhythm (Sinus at 93 with intraventricular conduction delay. ST depression noted in 1 and aVL, unchanged compared to prior study from September.) Treatment and Re-Evaluation Comments:: Lab work reveals elevated white count at 13.4. Chemistry studies reveal BUN of 66 and creatinine 1.69. Appears her baseline creatinine is around 1.3. Troponin is 428. BNP is 2300. Although I did see a history listed of elevated troponin in the past, it appears that her troponin maxed at 0.8 on the old scale. I spoke with Dr. Jovel, the patient's management professor. He agreed the patient should be admitted overnight for cycling of enzymes. We will give her 40 mg of IV Lasix at this time and closely monitor her renal function. Discharge Plan Triage Chief Complaint: Shortness of Breath ED Provider: Elizabet Wallace Dx/Rx/DC Orders Clinical Impression: CHF (congestive heart failure), Elevated troponin Prescriptions: No Action allopurinol 300 mg tablet 300 mg PO DAILY RF: 0 fluoxetine 40 mg capsule 40 cap PO DAILY RF: 0 guaifenesin [Mucinex] 600 mg tablet extended release 12hr 600 mg PO BID PRN (Reason: Cough) RF: 0 furosemide [Lasix] 40 mg tablet 40 mg PO DAILY 30 Days Qty: 30 RF: 0 albuterol sulfate 2.5 MG/3 ML solution for nebulization 2.5 mg inhalation TID RF: 0 omeprazole 40 MG capsule,delayed release(DR/EC) 40 mg PO DAILY RF: 0 levothyroxine 75 MCG tablet 75 mcg PO DAILY RF: 0 isosorbide mononitrate 60 MG tablet 60 mg PO BID RF: 0 simvastatin 20 MG tablet 20 mg PO QHS RF: 0 nitroglycerin 0.4 MG tablet, sublingual 0.4 mg sublingual Q5M PRN (Reason: Chest Pain) RF: 0 aspirin 81 MG tablet,chewable 81 mg PO DAILY@0800 RF: 0 folic acid 1 MG tablet 1 mg PO DAILY RF: 0 metoprolol succinate 25 MG tablet extended release 24 hr 25 mg PO DAILY RF: 0 colchicine 0.6 MG capsule 0.6 mg PO PRN PRN (Reason: gout) RF: 0 polyethylene glycol 3350 17 GM packet 17 g PO DAILY RF: 0 methylcellulose (laxative) 479 GM powder 850 g PO DAILY RF: 0 conjugated estrogens 0.625 MG tablet 0.625 mg vaginal MOWEFR RF: 0 montelukast 10 MG tablet 10 mg PO DAILY RF: 0 potassium chloride 20 MEQ tablet 40 meq PO BID RF: 0 nystatin [Nystop] 1 APPLIC bottle 1 applic TOPICAL BID RF: 0 acetaminophen 500 MG tablet 1,000 mg PO Q6H PRN PRN (Reason: Pain Score 1-10) RF: 0 menthol-zinc oxide 1 APPLIC ointment 1 applic TOPICAL BID RF: 0 metformin 500 MG tablet 500 mg PO BID Qty: 60 RF: 0 spironolactone 25 MG tablet 25 mg PO DAILY Qty: 30 RF: 0 fluticasone propionate 1 SPRAY spray,suspension 2 spray NASAL DAILY Qty: 1 RF: 0 ciprofloxacin HCl 250 mg tablet 250 mg PO Q12H 7 Days Qty: 14 RF: 0 gentamicin 0.1 % ointment 1 applic topical BID Qty: 15 RF: 0 Primary Care Provider: Rommel Arango Referrals: Rommel Arango MD [Primary Care Provider] - Disposition Disposition: Acute Care Hospital [facility]
[2021-12-29 20:28] VITALS: BP 100/64
--- NOTE | 2021-12-29 20:28 | RAD_ITS ---
STUDY: X-RAY CHEST REASON FOR EXAM: Female, 81 years old. sob TECHNIQUE: AP portable COMPARISON: 10/15/2021 FINDINGS: Elevated right hemidiaphragm and mild subsegmental atelectasis at the right base. There is no demonstrated pleural abnormality. Heart is enlarged. Normal mediastinum and [place]. Normal visualized pulmonary arteries. Normal visualized aortic arch and descending thoracic aorta. Postop change status post median sternotomy and CABG Normal visualized thoracic spine. Normal visualized ribs, clavicles, and shoulders. There is no demonstrated abnormality of the visualized soft tissue structures of the upper abdomen. RAD/Chest 1 View (Portable) IMPRESSION: ASHD. Elevated right hemidiaphragm and mild subsegmental atelectasis at the right base. Electronically Signed: Yoel Lopes MD at 20:54 EST ,
[2021-12-29 20:38] LABS: Absolute Lymphocyte Count 0.55 X10^3/uL (0.83-4.51); Absolute Neutrophil Count 11.5 X10^3/uL (2.0-7.7); Basophil# 0.08 X10^3/uL; Basophil% 0.6 % (0-1); Eosinophil# 0.02 X10^3/uL; Eosinophils% 0.1 % (0-5); Hematocrit 33.3 % (37-47); Hemoglobin 10.2 g/dL (12.0-15.0); Lymphocyte # 0.55 X10^3/ul (0.83-4.51); Lymphocyte % 4.1 % (19-41); Mean Corp Hgb Conc 30.6 g/dL (32-36); Mean Corpuscular Hgb 25.9 pg (27.0-32.0); Mean Corpuscular Volume 84.5 fL (81-99); Mean Platelet Vol. 10.7 fl (6.2-12.0); Monocyte# 1.14 X10^3/uL; Monocyte% 8.5 % (0-10); NRBC Flagged by Analyzer 0.2 % (0-5); Neutrophil % 86.2 % (47-70); POSITIVE DIFFERENTIAL YES; Platelet Count 287 K/mm3 (150-450); RBC Distribution Width CV 18.4 % (11.6-14.6); Red Blood Count 3.94 M/mm3 (4.2-5.4); White Blood Count 13.4 K/mm3 (4.4-11.0)
[2021-12-29 20:43] LABS: Differential Indicated SCAN CRITERIA MET
[2021-12-29 20:55] LABS: Anion Gap 10 (5-15); BUN 66 mg/dL (7-18); BUN/Creat Ratio 39.1 RATIO (10-20); Calcium,Total 9.6 mg/dL (8.5-10.1); Chloride 99 mmol/L (98-107); Creatinine, Serum 1.69 mg/dL (0.55-1.02); EST Glomerular Filtration Rate 31 mL/min (>60); Est Glom Filt Rate - Afr Amer 37 mL/min (>60); Estimated Creatinine Clearance 22.93 ml/min; Glucose 178 mg/dL (74-106); Potassium 5.5 mmol/L (3.5-5.1); Sodium Level 131 mmol/L (136-145)
[2021-12-29 20:57] LABS: Troponin-I HS 428 pg/mL (3.0-54.0)
--- NOTE | 2021-12-29 20:57 | ED.RN ---
troponin received 428. aware
[2021-12-29 21:05] LABS: BNP,B-Type NATRIURETIC PEPTIDE 2365.6 pg/mL (0-100)
[2021-12-29 21:33] LABS: Anisocytosis 1+; Microcytosis 1+
[2021-12-29 21:55] VITALS: BP 114/67; PULSE 92; RESP 20; TEMP 36.2; O2SAT 96
[2021-12-29] MEDS: Furosemide 40 MG/4 ML Vial IV (21:57)
[2021-12-29] MEDS: Aspirin 81 MG TAB.CHEW 324 MG PO (21:57)
[2021-12-29 22:41] LABS: Troponin-I HS 409 pg/mL (3.0-54.0)
--- NOTE | 2021-12-29 23:15 | PCM.HP.STD ---
HPI - General General Date of Admission: 12/29/21 HPI Narrative SHAWN FRIEDMAN, is a 81 F who presents to the hospital with worsening shortness of breath. According to her and her daughter, she is chronically short of breath however they recently saw the motorcycle repairer in November and she was decreased on her Lasix from 40 mg p.o. twice daily to 40 mg daily secondary to hypotension however since then she has been getting more short of breath. In the interval, she had followed up with her PCP who thought that maybe she could have a pneumonia so started her on Augmentin, she had also been on Cipro recently for a right heel wound that she was having managed at the wound care center. None of these interventions helped with her shortness of breath so they called the motorcycle repairer office again and she was increased back to her twice daily Lasix dosing for and Friday however at this point it appears that this may have been a little too late as it did not improve any of her shortness of breath and so she was brought into the hospital. In the ER she was found to have an elevated creatinine to 1.69 which does not qualify as an JULISSA for her but is more elevated than her baseline. Her potassium is 5.5 she did have an elevated troponin to 409 but looking through the old system her old troponin was 0.8. Her BMP is the highest is ever been and 2365.6, however she also does have a leukocytosis of 13.4 without a fever. [facility] Medical History Anxiety and depression Atherosclerosis of coronary artery of [place] heart without angina pectoris Chronic diastolic (congestive) heart failure Chronic respiratory failure Chronic systolic (congestive) heart failure Debility Decubitus ulcer of coccygeal region, stage 3 Depression Diverticulosis Essential hypertension Fall GERD (gastroesophageal reflux disease) Gout History of deep venous thrombosis History of pulmonary embolism History of ST elevation myocardial infarction (STEMI) (04/2013) Hyperlipemia Hypoglycemia due to type 2 diabetes mellitus Hypothyroidism Impaired mobility Insulin dependent diabetes mellitus Morbid obesity Non-ischemic cardiomyopathy Nonrheumatic aortic (valve) stenosis Obstructive sleep apnea Osteoarthritis Right bundle branch block (RBBB) 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, stage 2 Type 2 diabetes mellitus with skin complication, without long-term current use of insulin Type II diabetes mellitus Home Medications albuterol sulfate 2.5 mg INHALATION TID 06/05/19 [History Last Taken 01/29/21] aspirin 81 mg PO DAILY@0800 06/05/19 [History Last Taken 01/29/21] colchicine 0.6 mg PO PRN PRN 06/05/19 [History Last Taken Unknown] folic acid 1 mg PO DAILY 06/05/19 [History Last Taken 01/29/21] isosorbide mononitrate 60 mg PO BID 06/05/19 [History Last Taken 01/29/21] levothyroxine 75 mcg PO DAILY 06/05/19 [History Last Taken 01/29/21] metoprolol succinate 25 mg PO DAILY 06/05/19 [History Last Taken 01/29/21] nitroglycerin 0.4 mg SUBLINGUAL Q5M PRN 06/05/19 [History Last Taken Unknown] omeprazole 40 mg PO DAILY 06/05/19 [History Last Taken 01/29/21] polyethylene glycol 3350 17 g PO DAILY 06/05/19 [History Last Taken 01/29/21] simvastatin 20 mg PO QHS 06/05/19 [History Last Taken 01/29/21] methylcellulose (laxative) 850 g PO DAILY 06/29/19 [History Last Taken 01/29/21] allopurinol 300 mg tablet 300 mg PO DAILY tab 09/19/20 [History Last Taken 01/29/21] fluoxetine 40 mg capsule 40 cap PO DAILY 09/19/20 [History Last Taken 01/29/21] guaifenesin 600 mg tablet, extended release 12 hr 600 mg PO BID PRN 09/19/20 [History Last Taken 01/29/21] conjugated estrogens 0.625 mg VAGINAL MOWEFR 01/30/21 [History Last Taken 01/27/21] montelukast 10 mg PO DAILY 01/30/21 [History Last Taken 01/29/21] nystatin [Nystop] 1 applic TOPICAL BID 02/04/21 [History Last Taken Unknown] potassium chloride 40 meq PO BID 02/04/21 [History Last Taken Unknown] acetaminophen 1,000 mg PO Q6H PRN PRN tablet 02/16/21 [Rx Last Taken Unknown] fluticasone propionate 2 spray NASAL DAILY #1 02/16/21 [Rx Last Taken Unknown] metformin 500 mg PO BID #60 tablet 02/16/21 [Rx Last Taken Unknown] spironolactone 25 mg PO DAILY #30 tablet 02/16/21 [Rx Last Taken Unknown] furosemide 40 mg tablet 40 mg PO DAILY 30 Days #30 tab 12/10/21 [Rx Last Taken Unknown] gentamicin 0.1 % topical ointment 1 applic TOPICAL BID #15 g 12/11/21 [Rx Last Taken Unknown] ciprofloxacin HCl 250 mg PO Q12H 7 Days #14 tab 12/14/21 [Rx Last Taken Unknown] menthol-zinc oxide 1 applic TOPICAL BID 12/29/21 [History Last Taken Unknown] Allergy/AdvReac Type Severity Reaction Status Date / Time Iodinated Contrast Media AdvReac Hives Verified 12/29/21 20:02 [CONTRASTS] Family History Mother Heart disease Surgical History H/O coronary artery bypass surgery (01/08/05) History of bilateral knee replacement History of cholecystectomy History of colectomy History of coronary artery stent placement (08/02/15) History of herniorrhaphy Social History Smoking Status: Former smoker substance use type: does not use ROS Constitutional Constitutional: Denies chills, fatigue, fever(s) or malaise Eyes Eyes: Denies blurry vision ENT HEENT: Denies headache(s) or nasal discharge Cardiovascular Cardiovascular: Denies chest pain, dyspnea on exertion or syncope Respiratory/Chest Respiratory/Chest: Reports cough, shortness of breath at rest and shortness of breath with exertion Gastrointestinal Gastrointestinal: Denies constipation, diarrhea, nausea or vomiting Genitourinary Genitourinary: Denies dysuria Neurologic Neurologic: Denies focal weakness, numbness or tremor(s) Psychiatric Psychiatric: Denies anxiety or depression Vital Signs Vital Signs Vital Signs: 12/29/21 19:57 12/29/21 20:08 12/29/21 20:28 Temperature 97 F L Temperature Source Temporal Pulse Rate 92 Respiratory Rate 18 Respiratory Effort Short of Breath Respiratory Depth Normal Respiratory Pattern Normal Blood Pressure 115/71 100/64 Blood Pressure Mean 85 76 Pulse Ox 97 Oxygen Delivery Method Room Air Room Air 12/29/21 21:55 Temperature 97.1 F L Temperature Source Temporal Pulse Rate 92 Respiratory Rate 20 H Respiratory Effort Respiratory Depth Respiratory Pattern Blood Pressure 114/67 Blood Pressure Mean 82 Pulse Ox 96 Oxygen Delivery Method Room Air Weight Weight: 171 lb Body Mass Index (BMI) 29.3 Physical Exam Const alert, oriented x3 and no apparent distress General Appearance: cooperative HEENT normocephalic Mouth: dry mucous membranes Eyes PERRL, EOMs intact bilaterally and conjunctivae normal Neck supple and no JVD Resp normal respiratory effort, no retractions, no use of accessory muscles and No clear to auscultation bilaterally Auscultation: crackles and wheezes; Negative for rales or rhonchi Cardio regular rate, regular rhythm, S1 normal heart sound, S2 normal heart sound and no murmurs GI soft to palpation, non-tender and non-distended; Negative for hepatosplenomegaly Extremity no clubbing, cyanosis or edema Skin no rashes or lesions noted Neuro no focal motor deficits and no sensory deficits noted Psych affect normal Appearance: appropriate Results Lab / Micro Data Result Diagrams: 12/29/21 20:15 12/29/21 20:15 Labs: Laboratory Results - last 24 hr 12/29/21 20:15: WBC 13.4 H, RBC 3.94 L, Hgb 10.2 L, Hct 33.3 L, MCV 84.5, MCH 25.9 L, MCHC 30.6 L, RDW Std Deviation 56.0 H, RDW Coeff of Oscar 18.4 H, Plt Count 287, MPV 10.7, Immature Gran % (Auto) 0.500, Neut % (Auto) 86.2 H, Lymph % (Auto) 4.1 L, [place] % (Auto) 8.5, Eos % (Auto) 0.1, Baso % (Auto) 0.6, Absolute Neuts (auto) 11.5 H, Absolute Lymphs (auto) 0.55 L, Nucleated RBC % 0.2, Anisocytosis 1+, Microcytosis 1+ 12/29/21 20:15: Sodium 131 L, Potassium 5.5 H, Chloride 99, Carbon Dioxide 22.0, Anion Gap 10, BUN 66 H, Creatinine 1.69 H, Estim Creat Clear Calc 22.93, Est GFR (MDRD) Af Amer 37 L, Est GFR (MDRD) Non-Af 31 L, BUN/Creatinine Ratio 39.1 H, Glucose 178 H, Calcium 9.6, Troponin I High Sens 428 H* 12/29/21 20:15: B-Natriuretic Peptide 2365.6 H 12/29/21 22:10: Troponin I High Sens 409 H* Radiology Impression Chest X-Ray 12/29/21 20:28 IMPRESSION: ASHD. Elevated right hemidiaphragm and mild subsegmental atelectasis at the right base. Electronically Signed: Yoel Lopes MD at 20:54 EST , Assessment & Plan Assessment/Plan (1) Elevated troponin: (2) CHF (congestive heart failure): PLAN: 1. Chronic diastolic CHF with pulmonary hypertension/CAD status post CABG and stent/HTN/HLD ?Her most recent echo in 10/16/2021 demonstrated an EF of 55% with some segmental dysfunction as well as a moderately enlarged left atrium and an RVSP of 49 mmHg stage I diastolic dysfunction ?We will continue with Lasix IV 40 mg twice daily ?We will consult cardiology, according to the daughter there was plans to perform a stress test at the end of the month ?Continue with her home aspirin, isosorbide mono night trait, metoprolol, simvastatin ?Her troponin was slightly elevated at 409, her old troponins were around 0.8 at their peak in 2012, more recently in 2019 they were down to 0 .06, will obtain serial troponins ?BNP on admission was 2365.6 2. She does have a leukocytosis with a heel wound as well as a sacral ulcer ?She was seen 12/14/2021 at the wound care center and her right heel grew Pseudomonas so she was started on Cipro for 7 days ?It sounds like her PCP started her on Augmentin on Friday, chest x-ray does not indicate any significant pneumonia ?We will monitor her leukocytosis given the fact that she is afebrile 3. DM 2 ?We will hold her home Metformin and place her on a sliding scale insulin ?Accu-Cheks AC at bedtime ?We will make adjustments as necessary 4. Hypothyroidism ?Stable ?Continue with Synthroid 5. GERD ?Stable ?Continue with PPI 6. Anxiety/depression ?Stable ?Continue with Prozac DVT: Heparin Charges/Coding Visit Charges Inpatient E&M: 52387 Init Hosp L3
[2021-12-29 23:44] VITALS: BMI 30.1
[2021-12-29 23:51] VITALS: BP 106/67; PULSE 92; RESP 18; TEMP 36.5; O2SAT 96
--- NOTE | 2021-12-29 23:51 | PCM.CONS.C ---
Assessment & Plan Assessment/Plan (1) CHF (congestive heart failure): PLAN: She appears to have diastolic heart failure which is likely secondary to reduction of her medication dose. I will suggest that we treat her with intravenous Lasix overnight. She will be reassessed. I do not think that this is an acute coronary syndrome however. (2) H/O coronary artery bypass surgery: PLAN: She is status post coronary artery bypass surgery. She does have a mildly elevated troponin. We will continue to observe the above. Stress test will be performed at some point. (3) Nonrheumatic aortic (valve) stenosis: PLAN: She appears to have stable moderate aortic stenosis. I would not recommend that we make any changes. We will continue to observe her with regard to the above. (4) Essential hypertension: PLAN: Her blood pressure appears to be under good control at this particular time no major changes will be made. Thank you for allowing me to participate in the care of your patient. Please don't hesitate to call if any issues arise. HPI Consult Data Date of Consult: 12/30/21 HPI Narrative HPI Narrative: SHAWN FRIEDMAN, is a 81 F who presents to the emergency room with shortness of breath. Her history dates back to 2004 when she was diagnosed with coronary artery disease and underwent coronary bypass surgery with a left internal mammary artery to left anterior descending artery and saphenous vein graft to obtuse marginal branch. In May 2014 she underwent a bare-metal stent to the ostial proximal right coronary artery. In October 2014 she had a drug-eluting stent placed the proximal right coronary artery. She developed in-stent stenosis and had a cutting balloon angioplasty to the proximal right coronary artery in July 2015. In addition she has hypertension, hyperlipidemia, diabetes mellitus and aortic stenosis. In November 2019 she underwent an echocardiographic evaluation which demonstrated an ejection fraction of 55%, stage I diastolic dysfunction, and an aortic valve with an area of 1.0 cm? which was improved from previously. She says that she has been doing well denying any chest pain or shortness breath or paroxysmal nocturnal dyspnea. She however is not particularly active. She has had no dizziness or diaphoresis no near syncope or syncope. She was recently seen in the office was noted to be mildly hypotensive and therefore her Lasix dose was reduced. She started getting more short of breath and she called the office and it was increased. However it did not appear to help her symptoms completely. She therefore presented to the emergency room today was noted to have mildly elevated troponin level as well as an natruretic peptide level. She denied any chest pain. [facility] Medical History Anxiety and depression Atherosclerosis of coronary artery of [place] without angina pectoris Chronic diastolic (congestive) heart failure Chronic respiratory failure Chronic systolic (congestive) heart failure Debility Decubitus ulcer of coccygeal region, stage 3 Depression Diverticulosis Essential hypertension [place] GERD (gastroesophageal reflux disease) Gout History of deep venous thrombosis History of pulmonary embolism History of ST elevation myocardial infarction (STEMI) (04/2013) Hyperlipemia Hypoglycemia due to type 2 diabetes mellitus Hypothyroidism Impaired mobility Insulin dependent diabetes mellitus Morbid obesity Non-ischemic cardiomyopathy Nonrheumatic aortic (valve) stenosis Obstructive sleep apnea Osteoarthritis Right bundle branch block (RBBB) 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, stage 2 Type 2 diabetes mellitus with skin complication, without long-term current use of insulin Type II diabetes mellitus Home Medications albuterol sulfate 2.5 mg INHALATION TID 06/05/19 [History Last Taken 01/29/21] aspirin 81 mg PO DAILY@0800 06/05/19 [History Last Taken 01/29/21] colchicine 0.6 mg PO PRN PRN 06/05/19 [History Last Taken Unknown] folic acid 1 mg PO DAILY 06/05/19 [History Last Taken 01/29/21] isosorbide mononitrate 60 mg PO BID 06/05/19 [History Last Taken 01/29/21] levothyroxine 75 mcg PO DAILY 06/05/19 [History Last Taken 01/29/21] metoprolol succinate 25 mg PO DAILY 06/05/19 [History Last Taken 01/29/21] nitroglycerin 0.4 mg SUBLINGUAL Q5M PRN 06/05/19 [History Last Taken Unknown] omeprazole 40 mg PO DAILY 06/05/19 [History Last Taken 01/29/21] polyethylene glycol 3350 17 g PO DAILY 06/05/19 [History Last Taken 01/29/21] simvastatin 20 mg PO QHS 06/05/19 [History Last Taken 01/29/21] methylcellulose (laxative) 850 g PO DAILY 06/29/19 [History Last Taken 01/29/21] allopurinol 300 mg tablet 300 mg PO DAILY tab 09/19/20 [History Last Taken 01/29/21] fluoxetine 40 mg capsule 40 cap PO DAILY 09/19/20 [History Last Taken 01/29/21] guaifenesin 600 mg tablet, extended release 12 hr 600 mg PO BID PRN 09/19/20 [History Last Taken 01/29/21] conjugated estrogens 0.625 mg VAGINAL MOWEFR 01/30/21 [History Last Taken 01/27/21] montelukast 10 mg PO DAILY 01/30/21 [History Last Taken 01/29/21] nystatin [Nystop] 1 applic TOPICAL BID 02/04/21 [History Last Taken Unknown] potassium chloride 40 meq PO BID 02/04/21 [History Last Taken Unknown] acetaminophen 1,000 mg PO Q6H PRN PRN tablet 02/16/21 [Rx Last Taken Unknown] fluticasone propionate 2 spray NASAL DAILY #1 02/16/21 [Rx Last Taken Unknown] metformin 500 mg PO BID #60 tablet 02/16/21 [Rx Last Taken Unknown] spironolactone 25 mg PO DAILY #30 tablet 02/16/21 [Rx Last Taken Unknown] menthol-zinc oxide 1 applic TOPICAL BID 12/29/21 [History Last Taken Unknown] ciprofloxacin HCl 250 mg PO Q12H 12/30/21 [History Last Taken Unknown] furosemide [Lasix] 40 mg PO DAILY 12/30/21 [History Last Taken Unknown] gentamicin 1 applic TOPICAL BID 12/30/21 [History Last Taken Unknown] Allergy/AdvReac Type Severity Reaction Status Date / Time Iodinated Contrast Media AdvReac Hives Verified 12/29/21 20:02 [CONTRASTS] Family History Mother Heart disease Surgical History H/O coronary artery bypass surgery (01/08/05) History of bilateral knee replacement History of cholecystectomy History of colectomy History of coronary artery stent placement (08/02/15) History of herniorrhaphy Social History Smoking Status: Former smoker substance use type: does not use ROS Constitutional Constitutional: Denies fever(s) or weight loss Eyes Eyes: Reports systems reviewed and no addt'l complaints, except as documented ENT HEENT: Reports systems reviewed and no addt'l complaints, except as documented Cardiovascular Cardiovascular: Denies chest pain at rest, chest pain with activity, dyspnea at rest, dyspnea on exertion, edema, palpitations or paroxysmal nocturnal dyspnea Respiratory/Chest Respiratory/Chest: Reports dyspnea on exertion, shortness of breath at rest and shortness of breath with exertion; Denies productive cough Gastrointestinal Gastrointestinal: Denies change in bowel habits, nausea, vomiting or weight changes Genitourinary Genitourinary: Denies difficulty urinating Musculoskeletal Musculoskeletal: Denies joint stiffness or muscle weakness Integumentary Integumentary: Denies lesions Neurologic Neurologic: Denies dizziness or syncope Psychiatric Psychiatric: Denies anxiety Endocrine Endocrinology: Denies excessive sweating or fatigue Hematologic/Lymphatic Hematologic/Lymphatic: Denies anemia Allergic/Immunologic Allergic/Immunologic: Denies seasonal rhinorrhea Physical Exam Const alert, oriented x3 and no apparent distress General Appearance: cooperative HEENT hearing grossly normal bilaterally Head and Scalp: atraumatic Eyes EOMs intact bilaterally Neck General: normal visual inspection Chest inspection of chest normal and palpation of chest normal Resp normal respiratory effort Auscultation: clear to auscultation bilaterally Cardio regular rate, regular rhythm, S1 normal heart sound and S2 normal heart sound Jugular Venous Distention: JVD GI normal to inspection, nondistended, normoactive bowel sounds Extremity normal capillary refill and no pedal edema Peripheral Pulses: Yes pulses 2+ throughout and femoral pulses present Skin no rashes or lesions noted Neuro oriented x3 and CN's II-XII intact bilaterally Psych Appearance: grossly normal and appropriate Risk Stratification Risk Stratification Applicable: No Objective Data Vital Signs: Vital Signs Temp Pulse Resp BP Pulse Ox 97.1 F L 92 20 H 114/67 96 12/29/21 21:55 12/29/21 21:55 12/29/21 21:55 12/29/21 21:55 12/29/21 21:55 Oxygen Delivery Method Room Air Weight: 172 lb 9.951 oz Body Mass Index (BMI) 30.1 Lab / Micro Data Result Diagrams: 12/30/21 01:45 12/30/21 01:45 Labs: Laboratory Results - last 24 hr 12/29/21 20:15: WBC 13.4 H, RBC 3.94 L, Hgb 10.2 L, Hct 33.3 L, MCV 84.5, MCH 25.9 L, MCHC 30.6 L, RDW Std Deviation 56.0 H, RDW Coeff of Oscar 18.4 H, Plt Count 287, MPV 10.7, Immature Gran % (Auto) 0.500, Neut % (Auto) 86.2 H, Lymph % (Auto) 4.1 L, [place] % (Auto) 8.5, Eos % (Auto) 0.1, Baso % (Auto) 0.6, Absolute Neuts (auto) 11.5 H, Absolute Lymphs (auto) 0.55 L, Nucleated RBC % 0.2, Anisocytosis 1+, Microcytosis 1+ 12/29/21 20:15: Sodium 131 L, Potassium 5.5 H, Chloride 99, Carbon Dioxide 22.0, Anion Gap 10, BUN 66 H, Creatinine 1.69 H, Estim Creat Clear Calc 22.93, Est GFR (MDRD) Af Amer 37 L, Est GFR (MDRD) Non-Af 31 L, BUN/Creatinine Ratio 39.1 H, Glucose 178 H, Calcium 9.6, Troponin I High Sens 428 H* 12/29/21 20:15: B-Natriuretic Peptide 2365.6 H 12/29/21 22:10: Troponin I High Sens 409 H* Cardiology Labs/Tests 12/29/21 20:15: WBC 13.4 H, RBC 3.94 L, Hgb 10.2 L, Hct 33.3 L, MCV 84.5, MCH 25.9 L, MCHC 30.6 L, Plt Count 287, MPV 10.7, Immature Gran % (Auto) 0.500, Neut % (Auto) 86.2 H, Lymph % (Auto) 4.1 L, [place] % (Auto) 8.5, Eos % (Auto) 0.1, Baso % (Auto) 0.6, Absolute Neuts (auto) 11.5 H, Nucleated RBC % 0.2 12/29/21 20:15: Sodium 131 L, Potassium 5.5 H, Chloride 99, Carbon Dioxide 22.0, Anion Gap 10, BUN 66 H, Creatinine 1.69 H, Est GFR (MDRD) Af Amer 37 L, Est GFR (MDRD) Non-Af 31 L, BUN/Creatinine Ratio 39.1 H, Glucose 178 H, Calcium 9.6 12/29/21 20:15: B-Natriuretic Peptide 2365.6 H Rhythm: EKG: ECHO: Stress Test: Cardiac Cath: PCI: CT Surgery: Holter monitor: EPS: PPM: CXR: Chest CT Scan: Radiography Diagnostic Testing: Radiology Impression Chest X-Ray 12/29/21 20:28 IMPRESSION: ASHD. Elevated right hemidiaphragm and mild subsegmental atelectasis at the right base. Electronically Signed: Yoel Lopes MD at 20:54 EST ,
[2021-12-30] VITALS (7 sets, daily range): BP systolic 105–112; BP diastolic 55–67; PULSE 86–99; RESP 16–18; TEMP 36.4–36.6; O2SAT 93–95
[2021-12-30 01:52] LABS: Absolute Lymphocyte Count 0.92 X10^3/uL (0.83-4.51); Basophil# 0.08 X10^3/uL; Basophil% 0.6 % (0-1); Eosinophil# 0.02 X10^3/uL; Eosinophils% 0.2 % (0-5); Hematocrit 29.4 % (37-47); Hemoglobin 9.4 g/dL (12.0-15.0); Lymphocyte # 0.92 X10^3/ul (0.83-4.51); Lymphocyte % 7.4 % (19-41); Mean Corpuscular Hgb 25.8 pg (27.0-32.0); Mean Corpuscular Volume 80.8 fL (81-99); Mean Platelet Vol. 10.9 fl (6.2-12.0); Monocyte# 1.37 X10^3/uL; NRBC Flagged by Analyzer 0.2 % (0-5); Neutrophil % 80.2 % (47-70); Platelet Count 254 K/mm3 (150-450); RBC Distribution Width CV 18.1 % (11.6-14.6); RBC Distribution Width SD 52.8 fl (35.1-43.9); Red Blood Count 3.64 M/mm3 (4.2-5.4); White Blood Count 12.5 K/mm3 (4.4-11.0)
[2021-12-30 02:13] LABS: Anion Gap 9 (5-15); BUN 71 mg/dL (7-18); Calcium,Total 9.2 mg/dL (8.5-10.1); Chloride 104 mmol/L (98-107); Creatinine, Serum 1.51 mg/dL (0.55-1.02); EST Glomerular Filtration Rate 35 mL/min (>60); Est Glom Filt Rate - Afr Amer 43 mL/min (>60); Estimated Creatinine Clearance 24.58 ml/min; Glucose 143 mg/dL (74-106); Potassium 5.5 mmol/L (3.5-5.1); Sodium Level 133 mmol/L (136-145)
[2021-12-30 02:17] LABS: Troponin-I HS 442 pg/mL (3.0-54.0)
[2021-12-30] MEDS: Heparin Injection (Vial) 5,000 UNIT/ML VIAL 5000 UNIT SC ×2 (05:45→13:50)
[2021-12-30] MEDS: Levothyroxine 75 MCG Tablet PO (05:45)
[2021-12-30 07:10] LABS: Bedside Glucose 140 mg/dL (74-106)
--- NOTE | 2021-12-30 08:01 | PCM.PN.HOSP ---
Objective Data Objective Data Vital Signs: Vital Signs Temp Pulse Resp BP Pulse Ox 97.5 F L 91 18 112/55 L 93 12/30/21 05:19 12/30/21 07:37 12/30/21 05:19 12/30/21 05:19 12/30/21 05:19 Oxygen Delivery Method Room Air Weight: 78.3 kg Body Mass Index (BMI) 30.1 Intake & Output: Intake and Output for Last 24 Hours 12/28/21 12/29/21 12/30/21 23:59 23:59 23:59 Output Total 650 / 650 Balance -650 / -650 Lab / Micro Data Result Diagrams: 12/30/21 01:45 12/30/21 01:45 Labs: Laboratory Results - last 24 hr 12/29/21 20:15: WBC 13.4 H, RBC 3.94 L, Hgb 10.2 L, Hct 33.3 L, MCV 84.5, MCH 25.9 L, MCHC 30.6 L, RDW Std Deviation 56.0 H, RDW Coeff of [place] 18.4 H, Plt Count 287, MPV 10.7, Immature Gran % (Auto) 0.500, Neut % (Auto) 86.2 H, Lymph % (Auto) 4.1 L, [place] % (Auto) 8.5, Eos % (Auto) 0.1, Baso % (Auto) 0.6, Absolute Neuts (auto) 11.5 H, Absolute Lymphs (auto) 0.55 L, Nucleated RBC % 0.2, Anisocytosis 1+, Microcytosis 1+ 12/29/21 20:15: Sodium 131 L, Potassium 5.5 H, Chloride 99, Carbon Dioxide 22.0, Anion Gap 10, BUN 66 H, Creatinine 1.69 H, Estim Creat Clear Calc 22.93, Est GFR (MDRD) Af Amer 37 L, Est GFR (MDRD) Non-Af 31 L, BUN/Creatinine Ratio 39.1 H, Glucose 178 H, Calcium 9.6, Troponin I High Sens 428 H* 12/29/21 20:15: B-Natriuretic Peptide 2365.6 H 12/29/21 22:10: Troponin I High Sens 409 H* 12/30/21 01:45: WBC 12.5 H, RBC 3.64 L, Hgb 9.4 L, Hct 29.4 L, MCV 80.8 L, MCH 25.8 L, MCHC 32.0, RDW Std Deviation 52.8 H, RDW Coeff of [place] 18.1 H, Plt Count 254, MPV 10.9, Immature Gran % (Auto) 0.600, Neut % (Auto) 80.2 H, Lymph % (Auto) 7.4 L, [place] % (Auto) 11.0 H, Eos % (Auto) 0.2, Baso % (Auto) 0.6, Absolute Neuts (auto) 10.0 H, Absolute Lymphs (auto) 0.92, Nucleated RBC % 0.2 12/30/21 01:45: Sodium 133 L, Potassium 5.5 H, Chloride 104, Carbon Dioxide 20.0 L, Anion Gap 9, BUN 71 H, Creatinine 1.51 H, Estim Creat Clear Calc 24.58, Est GFR (MDRD) Af Amer 43 L, Est GFR (MDRD) Non-Af 35 L, BUN/Creatinine Ratio 47.0 H, Glucose 143 H, Calcium 9.2 12/30/21 01:45: Troponin I High Sens 442 H* 12/30/21 06:40: POC Glucose 140 H Radiography Diagnostic Testing: Radiology Impression Chest X-Ray 12/29/21 20:28 IMPRESSION: ASHD. Elevated right hemidiaphragm and mild subsegmental atelectasis at the right base. Electronically Signed: Yoel Lopes MD at 20:54 EST ,
[2021-12-30] MEDS: Metoprolol(XL)Succ 25 MG Tablet PO (08:33)
[2021-12-30] MEDS: Montelukast 10 MG Tablet PO (08:33)
[2021-12-30] MEDS: FLUoxetine 20 MG Capsule 40 MG PO (08:33)
[2021-12-30] MEDS: Isosorbide Mononitrate 60 MG Tablet PO (08:33)
[2021-12-30] MEDS: Pantoprazole Sodium 40 MG Tablet PO (08:33)
[2021-12-30] MEDS: Folic Acid 1 MG Tablet PO (08:33)
[2021-12-30] MEDS: Aspirin 81 MG TAB.CHEW PO (08:33)
[2021-12-30] MEDS: Furosemide 40 MG/4 ML Vial IV (08:34)
[2021-12-30] MEDS: 0.9% Saline Lock 10 ML Syringe IV (08:34)
[2021-12-30] MEDS: Glucerna Shake 120 ML LIQUID PO (08:41)
--- NOTE | 2021-12-30 10:08 | PN.CARD_ITS ---
Subjective Subjective Patient seen and evaluated. Appears to be doing well. Breathing quite well. Objective Data Vital Signs: Vital Signs Temp Pulse Resp BP Pulse Ox 97.5 F L 86 18 112/67 95 12/30/21 08:16 12/30/21 08:33 12/30/21 08:16 12/30/21 08:33 12/30/21 08:16 Oxygen Delivery Method Room Air Weight: 172 lb 9.951 oz Body Mass Index (BMI) 30.1 Intake & Output: Intake and Output for Last 24 Hours 12/28/21 12/29/21 12/30/21 23:59 23:59 23:59 Output Total 650 / 650 Balance -650 / -650 Lab / Micro Data Result Diagrams: 12/30/21 01:45 12/30/21 01:45 Labs: Laboratory Results - last 24 hr 12/29/21 20:15: WBC 13.4 H, RBC 3.94 L, Hgb 10.2 L, Hct 33.3 L, MCV 84.5, MCH 25.9 L, MCHC 30.6 L, RDW Std Deviation 56.0 H, RDW Coeff of [place] 18.4 H, Plt Count 287, MPV 10.7, Immature Gran % (Auto) 0.500, Neut % (Auto) 86.2 H, Lymph % (Auto) 4.1 L, [place] % (Auto) 8.5, Eos % (Auto) 0.1, Baso % (Auto) 0.6, Absolute Neuts (auto) 11.5 H, Absolute Lymphs (auto) 0.55 L, Nucleated RBC % 0.2, Anisocytosis 1+, Microcytosis 1+ 12/29/21 20:15: Sodium 131 L, Potassium 5.5 H, Chloride 99, Carbon Dioxide 22.0, Anion Gap 10, BUN 66 H, Creatinine 1.69 H, Estim Creat Clear Calc 22.93, Est GFR (MDRD) Af Amer 37 L, Est GFR (MDRD) Non-Af 31 L, BUN/Creatinine Ratio 39.1 H, Glucose 178 H, Calcium 9.6, Troponin I High Sens 428 H* 12/29/21 20:15: B-Natriuretic Peptide 2365.6 H 12/29/21 22:10: Troponin I High Sens 409 H* 12/30/21 01:45: WBC 12.5 H, RBC 3.64 L, Hgb 9.4 L, Hct 29.4 L, MCV 80.8 L, MCH 25.8 L, MCHC 32.0, RDW Std Deviation 52.8 H, RDW Coeff of [place] 18.1 H, Plt Count 254, MPV 10.9, Immature Gran % (Auto) 0.600, Neut % (Auto) 80.2 H, Lymph % (Auto) 7.4 L, [place] % (Auto) 11.0 H, Eos % (Auto) 0.2, Baso % (Auto) 0.6, Absolute Neuts (auto) 10.0 H, Absolute Lymphs (auto) 0.92, Nucleated RBC % 0.2 12/30/21 01:45: Sodium 133 L, Potassium 5.5 H, Chloride 104, Carbon Dioxide 20.0 L, Anion Gap 9, BUN 71 H, Creatinine 1.51 H, Estim Creat Clear Calc 24.58, Est GFR (MDRD) Af Amer 43 L, Est GFR (MDRD) Non-Af 35 L, BUN/Creatinine Ratio 47.0 H , Glucose 143 H, Calcium 9.2 12/30/21 01:45: Troponin I High Sens 442 H* 12/30/21 06:40: POC Glucose 140 H Cardiology Labs/Tests 12/29/21 20:15: WBC 13.4 H, RBC 3.94 L, Hgb 10.2 L, Hct 33.3 L, MCV 84.5, MCH 25.9 L, MCHC 30.6 L, Plt Count 287, MPV 10.7, Immature Gran % (Auto) 0.500, Neut % (Auto) 86.2 H, Lymph % (Auto) 4.1 L, [place] % (Auto) 8.5, Eos % (Auto) 0.1, Baso % (Auto) 0.6, Absolute Neuts (auto) 11.5 H, Nucleated RBC % 0.2 12/29/21 20:15: Sodium 131 L, Potassium 5.5 H, Chloride 99, Carbon Dioxide 22.0, Anion Gap 10, BUN 66 H, Creatinine 1.69 H, Est GFR (MDRD) Af Amer 37 L, Est GFR (MDRD) Non-Af 31 L, BUN/Creatinine Ratio 39.1 H, Glucose 178 H, Calcium 9.6 12/29/21 20:15: B-Natriuretic Peptide 2365.6 H 12/30/21 01:45: WBC 12.5 H, RBC 3.64 L, Hgb 9.4 L, Hct 29.4 L, MCV 80.8 L, MCH 25.8 L, MCHC 32.0, Plt Count 254, MPV 10.9, Immature Gran % (Auto) 0.600, Neut % (Auto) 80.2 H, Lymph % (Auto) 7.4 L, [place] % (Auto) 11.0 H, Eos % (Auto) 0.2, Bas o % (Auto) 0.6, Absolute Neuts (auto) 10.0 H, Nucleated RBC % 0.2 12/30/21 01:45: Sodium 133 L, Potassium 5.5 H, Chloride 104, Carbon Dioxide 20.0 L, Anion Gap 9, BUN 71 H, Creatinine 1.51 H, Est GFR (MDRD) Af Amer 43 L, Est GFR (MDRD) Non-Af 35 L, BUN/Creatinine Ratio 47.0 H, Glucose 143 H, Calcium 9.2 Rhythm: EKG: ECHO: Stress Test: Cardiac Cath: PCI: CT Surgery: Holter monitor: EPS: PPM: CXR: Chest CT Scan: Radiography Diagnostic Testing: Radiology Impression Chest X-Ray 12/29/21 20:28 IMPRESSION: ASHD. Elevated right hemidiaphragm and mild subsegmental atelectasis at the right base. Electronically Signed: Yoel Lopes MD at 20:54 EST Reading Location ID and State: [facility] / [place] , Service support , Physical Exam Const alert, oriented x3 and no apparent distress General Appearance: cooperative HEENT hearing grossly normal bilaterally Head and Scalp: atraumatic Eyes EOMs intact bilaterally Neck General: normal visual inspection Chest inspection of chest normal and palpation of chest normal Resp normal respiratory effort Auscultation: clear to auscultation bilaterally Cardio regular rate, regular rhythm, S1 normal heart sound and S2 normal heart sound Jugular Venous Distention: JVD GI normal to inspection, nondistended, normoactive bowel sounds Extremity normal capillary refill and no pedal edema Peripheral Pulses: Yes pulses 2+ throughout and femoral pulses present Skin no rashes or lesions noted Neuro oriented x3 and CN's II-XII intact bilaterally Psych Appearance: grossly normal and appropriate Assessment & Plan Assessment/Plan (1) CHF (congestive heart failure): PLAN: She appears to have diastolic heart failure which is likely secondary to reduction of her medication dose. * She did receive IV Lasix yesterday and improved significantly. * Will recommend that she be discharged back on her p.o. 40 twice daily of Lasix. (2) H/O coronary artery bypass surgery: PLAN: She is status post coronary artery bypass surgery. She does have a mildly elevated troponin. We will continue to observe the above. Stress test will be performed at some point. * Her pattern appears to be flat and does not suggest an acute coronary syndrome (3) Nonrheumatic aortic (valve) stenosis: PLAN: She appears to have stable moderate aortic stenosis. I would not recommend that we make any changes. We will continue to observe her with regard to the above. (4) Essential hypertension: PLAN: Her blood pressure appears to be under good control at this particular time no major changes will be made. Thank you for allowing me to participate in the care of your patient. Please don't hesitate to call if any issues arise.
[2021-12-30 10:49] LABS: Magnesium 1.7 mg/dL (1.6-2.6)
[2021-12-30 11:11] LABS: Bedside Glucose 219 mg/dL (74-106)
[2021-12-30] MEDS: Insulin Lispro 100 UNIT/ML INSULN.PEN SC (11:11)
[2021-12-30 11:16] LABS: ALB/GLOB Ratio 0.5 RATIO (0.9-2.4); AST(SGOT) 86 U/L (15-37); Alanine Aminotransfer ALT/SGPT 58 U/L (13-56); Albumin, Serum 2.8 g/dL (3.2-5.0); Alkaline Phosphatase 85 U/L (45-117); Anion Gap 9 (5-15); BUN 68 mg/dL (7-18); BUN/Creat Ratio 43.3 RATIO (10-20); Calcium,Total 8.8 mg/dL (8.5-10.1); Chloride 99 mmol/L (98-107); Creatinine, Serum 1.57 mg/dL (0.55-1.02); EST Glomerular Filtration Rate 34 mL/min (>60); Est Glom Filt Rate - Afr Amer 41 mL/min (>60); Estimated Creatinine Clearance 23.64 ml/min; Globulin 5.1 g/dL (2.2-4.2); Glucose 228 mg/dL (74-106); Potassium 4.4 mmol/L (3.5-5.1); Protein, Total 7.9 g/dL (6.4-8.2); Sodium Level 131 mmol/L (136-145)
--- NOTE | 2021-12-30 13:05 | DCINST_ITS ---
Discharge Instructions Diet Discharge Diet: Low fat / Low cholesterol, 2000 Calorie Control Diet, 6 Cup Fluid Restriction and 2000 mg Sodium Diet Activity Discharge Activity: Return to Normal Activity Follow Up Care Test Results: Test results from this visit will be discussed in further detail at your follow-up appointment, if applicable. Discharge Plan Admission Admit Date/Time: 12/29/21 22:26 Primary Reason for Your Visit: Acute CHF Attending Provider: Moira Cage Primary Care Provider: Rommel Arango Consulting Providers: Long Jovel Instructions Additional Instructions / Restrictions: Continue to take all your medications as prescribed. Take note of changes to your medication. Continue on a low-fat, low-salt diet. Restrict your total fluid intake to less than 1500 mls/day. Weigh yourself every day. Let your doctor know when you gain more than 4 pounds of weight. Follow-up with your primary care doctor in 1 to 2 weeks. Follow-up with the director of student services in 2 weeks. You would need repeat blood work to check on your kidney function within a week of discharge. Discharge Orders/Prescriptions Prescriptions: New furosemide [Lasix] 40 mg tablet 40 mg PO BID 30 Days Qty: 60 RF: 1 Continued allopurinol 300 mg tablet 300 mg PO DAILY RF: 0 fluoxetine 40 mg capsule 40 cap PO DAILY RF: 0 guaifenesin [Mucinex] 600 mg tablet extended release 12hr 600 mg PO BID PRN (Reason: Cough) RF: 0 albuterol sulfate 2.5 MG/3 ML solution for nebulization 2.5 mg inhalation TID RF: 0 omeprazole 40 MG capsule,delayed release(DR/EC) 40 mg PO DAILY RF: 0 levothyroxine 75 MCG tablet 75 mcg PO DAILY RF: 0 isosorbide mononitrate 60 MG tablet 60 mg PO BID RF: 0 simvastatin 20 MG tablet 20 mg PO QHS RF: 0 nitroglycerin 0.4 MG tablet, sublingual 0.4 mg sublingual Q5M PRN (Reason: Chest Pain) RF: 0 aspirin 81 MG tablet,chewable 81 mg PO DAILY@0800 RF: 0 folic acid 1 MG tablet 1 mg PO DAILY RF: 0 metoprolol succinate 25 MG tablet extended release 24 hr 25 mg PO DAILY RF: 0 colchicine 0.6 MG capsule 0.6 mg PO PRN PRN (Reason: gout) RF: 0 polyethylene glycol 3350 17 GM packet 17 g PO DAILY RF: 0 methylcellulose (laxative) 479 GM powder 850 g PO DAILY RF: 0 conjugated estrogens 0.625 MG tablet 0.625 mg vaginal MOWEFR RF: 0 montelukast 10 MG tablet 10 mg PO DAILY RF: 0 potassium chloride 20 MEQ tablet 40 meq PO BID RF: 0 nystatin [Nystop] 1 APPLIC bottle 1 applic TOPICAL BID RF: 0 acetaminophen 500 MG tablet 1,000 mg PO Q6H PRN PRN (Reason: Pain Score 1-10) RF: 0 metformin 500 MG tablet 500 mg PO BID Qty: 60 RF: 0 spironolactone 25 MG tablet 25 mg PO DAILY Qty: 30 RF: 0 fluticasone propionate 1 SPRAY spray,suspension 2 spray NASAL DAILY Qty: 1 RF: 0 menthol-zinc oxide 1 APPLIC ointment 1 applic TOPICAL BID RF: 0 Discontinued furosemide [Lasix] 40 mg tablet 40 mg PO DAILY RF: 0 ciprofloxacin HCl 250 mg tablet 250 mg PO Q12H RF: 0 gentamicin 0.1 % ointment 1 applic topical BID RF: 0 Referrals / Follow Up: Rommel Arango MD [Primary Care Provider] - Within 1 Week Long Jovel MD [STAFF PHYSICIAN] - See Referral Note (within 1-2 weeks ) Disposition Disposition (needs filled in before D/C Order can be placed): Home, Self Care
--- NOTE | 2021-12-30 13:10 | DS.PCM_ITS ---
Providers Date of Admission: 12/29/21 Date of Discharge: 12/30/21 Primary Care Physician: Dr. Rommel Arango MD Consultations 12/29/21 23:37 Consult: Cardiology Routine Consulting Provider: Long Jovel Reason for Consult: CHF exacerbation EMERGENT Consult: No MD Notified: Yes Date Notified: 12/29/21 Time Notified: 22:41 Method of Notification: Verbal Consult: Onc/Wound/side trimmer Routine Comment: Reason for Consult:: Wound on right heel and sacrum Reason For Visit: CHF EXACERBATION Diagnosis Discharge Diagnosis (1) CHF (congestive heart failure): Status: Acute Code(s): I50.9 - Heart failure, unspecified (2) H/O coronary artery bypass surgery: Status: Resolved Code(s): Z95.1 - Presence of aortocoronary bypass graft (3) Nonrheumatic aortic (valve) stenosis: Status: Chronic Code(s): I35.0 - Nonrheumatic aortic (valve) stenosis (4) Essential hypertension: Status: Chronic Code(s): I10 - Essential (primary) hypertension Medications at Discharge Home Medications albuterol sulfate 2.5 mg INHALATION TID 06/05/19 aspirin 81 mg PO DAILY@0800 06/05/19 colchicine 0.6 mg PO PRN PRN 06/05/19 folic acid 1 mg PO DAILY 06/05/19 isosorbide mononitrate 60 mg PO BID 06/05/19 levothyroxine 75 mcg PO DAILY 06/05/19 metoprolol succinate 25 mg PO DAILY 06/05/19 nitroglycerin 0.4 mg SUBLINGUAL Q5M PRN 06/05/19 omeprazole 40 mg PO DAILY 06/05/19 polyethylene glycol 3350 17 g PO DAILY 06/05/19 simvastatin 20 mg PO QHS 06/05/19 methylcellulose (laxative) 850 g PO DAILY 06/29/19 allopurinol 300 mg tablet 300 mg PO DAILY tab 09/19/20 fluoxetine 40 mg capsule 40 cap PO DAILY 09/19/20 guaifenesin 600 mg tablet, extended release 12 hr 600 mg PO BID PRN 09/19/20 conjugated estrogens 0.625 mg VAGINAL MOWEFR 01/30/21 montelukast 10 mg PO DAILY 01/30/21 nystatin [Nystop] 1 applic TOPICAL BID 02/04/21 potassium chloride 40 meq PO BID 02/04/21 acetaminophen 1,000 mg PO Q6H PRN PRN tablet 02/16/21 fluticasone propionate 2 spray NASAL DAILY #1 02/16/21 metformin 500 mg PO BID #60 tablet 02/16/21 spironolactone 25 mg PO DAILY #30 tablet 02/16/21 menthol-zinc oxide 1 applic TOPICAL BID 12/29/21 furosemide [Lasix] 40 mg PO BID 30 Days #60 tab 12/30/21 Hospital Course Operations None Procedures None Summary of Care Provided Minutes Spent on Discharge: 35 Hospital Course: 81-year-old male with past medical history heart failure with preserved EF, EF 55% who presented with progressive shortness of breath. Patient recently had a Lasix dose decreased on account of hypotension. Patient presented back to the emergency department. She was found to have elevated creatinine 1.69, potassium 5.5, elevated troponin 409. BNP is 2365. Patient was admitted to the PCU and managed as acute CHF. She was managed on IV Lasix with improvement. Cardiology was consulted. Patient appeared to be much improved. Recommended discharged on 40 mg p.o. Lasix twice daily. Patient had 2 runs of SVT with aberration. Magnesium was checked and was 1.7. Patient received 2 g of magnesium IV. She will follow-up with her primary care doctor and with cardiology within 2 weeks. Ther eis a plan for stress test in the outpatient. Physical Exam Narrative Physical exam: General: Alert, Oriented x3, Cooperative, No apparent distress, Well developed HEENT: Atraumatic Oral: Moist Mucosa Neck: Supple Lungs: Clear to auscultation Cardiovascular: HS I+II, regular, no murmurs Abdomen: Bowel Sounds Present, Soft, Non Tender Extremities: No edema Skin: No rashes, No breakdown Neurological: Grossly intact Psych/Mental Status: Appropriate Weight / BMI Weight Weight: 78.3 kg Body Mass Index (BMI) 30.1 ABG / Lab / Microbiology Data Result Diagrams: 12/30/21 01:45 12/30/21 10:42 Laboratory: Laboratory Results - last 24 hr 12/29/21 20:15: WBC 13.4 H, RBC 3.94 L, Hgb 10.2 L, Hct 33.3 L, MCV 84.5, MCH 25.9 L, MCHC 30.6 L, RDW Std Deviation 56.0 H, RDW Coeff of Oscar 18.4 H, Plt Count 287, MPV 10.7, Immature Gran % (Auto) 0.500, Neut % (Auto) 86.2 H, Lymph % (Auto) 4.1 L, [place] % (Auto) 8.5, Eos % (Auto) 0.1, Baso % (Auto) 0.6, Absolute Neuts (auto) 11.5 H, Absolute Lymphs (auto) 0.55 L, Nucleated RBC % 0.2, Anisocytosis 1+, Microcytosis 1+ 12/29/21 20:15: Sodium 131 L, Potassium 5.5 H, Chloride 99, Carbon Dioxide 22.0, Anion Gap 10, BUN 66 H, Creatinine 1.69 H, Estim Creat Clear Calc 22.93, Est GFR (MDRD) Af Amer 37 L, Est GFR (MDRD) Non-Af 31 L, BUN/Creatinine Ratio 39.1 H , Glucose 178 H, Calcium 9.6, Troponin I High Sens 428 H* 12/29/21 20:15: B-Natriuretic Peptide 2365.6 H 12/29/21 22:10: Troponin I High Sens 409 H* 12/30/21 01:45: WBC 12.5 H, RBC 3.64 L, Hgb 9.4 L, Hct 29.4 L, MCV 80.8 L, MCH 25.8 L, MCHC 32.0, RDW Std Deviation 52.8 H, RDW Coeff of Oscar 18.1 H, Plt Count 254, MPV 10.9, Immature Gran % (Auto) 0.600, Neut % (Auto) 80.2 H, Lymph % (Auto) 7.4 L, [place] % (Auto) 11.0 H, Eos % (Auto) 0.2, Baso % (Auto) 0.6, Absolute Neuts (auto) 10.0 H, Absolute Lymphs (auto) 0.92, Nucleated RBC % 0.2 12/30/21 01:45: Sodium 133 L, Potassium 5.5 H, Chloride 104, Carbon Dioxide 20.0 L, Anion Gap 9, BUN 71 H, Creatinine 1.51 H, Estim Creat Clear Calc 24.58, Est GFR (MDRD) Af Amer 43 L, Est GFR (MDRD) Non-Af 35 L, BUN/Creatinine Ratio 47.0 H , Glucose 143 H, Calcium 9.2 12/30/21 01:45: Troponin I High Sens 442 H* 12/30/21 01:45: Magnesium 1.7 12/30/21 06:40: POC Glucose 140 H 12/30/21 10:42: Sodium 131 L, Potassium 4.4, Chloride 99, Carbon Dioxide 23.0, Anion Gap 9, BUN 68 H, Creatinine 1.57 H, Estim Creat Clear Calc 23.64, Est GFR (MDRD) Af Amer 41 L, Est GFR (MDRD) Non-Af 34 L, BUN/Creatinine Ratio 43.3 H, Glucose 228 H, Calcium 8.8, Total Bilirubin 0.40, AST 86 H, ALT 58 H, Alkaline Phosphatase 85, Total Protein 7.9, Albumin 2.8 L, Globulin 5.1 H, Albumin/Globulin Ratio 0.5 L 12/30/21 11:06: POC Glucose 219 H Radiography Diagnostic Testing: Radiology Impression Chest X-Ray 12/29/21 20:28 IMPRESSION: ASHD. Elevated right hemidiaphragm and mild subsegmental atelectasis at the right base. Electronically Signed: Yoel Lopes MD at 20:54 EST Reading Location ID and State: [address] [place] [address] , Service support , D/C Instructions Discharge Diet: Low fat / Low cholesterol, 2000 Calorie Control Diet, 6 Cup Fluid Restriction and 2000 mg Sodium Diet Meaningful Use Info Meaningful Use Diagnoses (Choose all that apply): CHF CHF RITA/ARB ordered at discharge?: No Reason RITA/ARB not ordered?: Not indicated Documented LVEF (%): 55 Discharge Plan Admission Admit Date/Time: 12/29/21 22:26 Primary Reason for Your Visit: Acute CHF Attending Provider: Moira Cage Primary Care Provider: Rommel Arango Consulting Providers: Long Jovel Instructions Additional Instructions / Restrictions: Continue to take all your medications as prescribed. Take note of changes to your medication. Continue on a low-fat, low-salt diet. Restrict your total fluid intake to less than 1500 mls/day. Weigh yourself every day. Let your doctor know when you gain more than 4 pounds of weight. Follow-up with your primary care doctor in 1 to 2 weeks. Follow-up with the investigation specialist in 2 weeks. You would need repeat blood work to check on your kidney function within a week of discharge. Discharge Orders/Prescriptions Prescriptions: New furosemide [Lasix] 40 mg tablet 40 mg PO BID 30 Days Qty: 60 RF: 1 Continued allopurinol 300 mg tablet 300 mg PO DAILY RF: 0 fluoxetine 40 mg capsule 40 cap PO DAILY RF: 0 guaifenesin [Mucinex] 600 mg tablet extended release 12hr 600 mg PO BID PRN (Reason: Cough) RF: 0 albuterol sulfate 2.5 MG/3 ML solution for nebulization 2.5 mg inhalation TID RF: 0 omeprazole 40 MG capsule,delayed release(DR/EC) 40 mg PO DAILY RF: 0 levothyroxine 75 MCG tablet 75 mcg PO DAILY RF: 0 isosorbide mononitrate 60 MG tablet 60 mg PO BID RF: 0 simvastatin 20 MG tablet 20 mg PO QHS RF: 0 nitroglycerin 0.4 MG tablet, sublingual 0.4 mg sublingual Q5M PRN (Reason: Chest Pain) RF: 0 aspirin 81 MG tablet,chewable 81 mg PO DAILY@0800 RF: 0 folic acid 1 MG tablet 1 mg PO DAILY RF: 0 metoprolol succinate 25 MG tablet extended release 24 hr 25 mg PO DAILY RF: 0 colchicine 0.6 MG capsule 0.6 mg PO PRN PRN (Reason: gout) RF: 0 polyethylene glycol 3350 17 GM packet 17 g PO DAILY RF: 0 methylcellulose (laxative) 479 GM powder 850 g PO DAILY RF: 0 conjugated estrogens 0.625 MG tablet 0.625 mg vaginal MOWEFR RF: 0 montelukast 10 MG tablet 10 mg PO DAILY RF: 0 potassium chloride 20 MEQ tablet 40 meq PO BID RF: 0 nystatin [Nystop] 1 APPLIC bottle 1 applic TOPICAL BID RF: 0 acetaminophen 500 MG tablet 1,000 mg PO Q6H PRN PRN (Reason: Pain Score 1-10) RF: 0 metformin 500 MG tablet 500 mg PO BID Qty: 60 RF: 0 spironolactone 25 MG tablet 25 mg PO DAILY Qty: 30 RF: 0 fluticasone propionate 1 SPRAY spray,suspension 2 spray NASAL DAILY Qty: 1 RF: 0 menthol-zinc oxide 1 APPLIC ointment 1 applic TOPICAL BID RF: 0 Discontinued furosemide [Lasix] 40 mg tablet 40 mg PO DAILY RF: 0 ciprofloxacin HCl 250 mg tablet 250 mg PO Q12H RF: 0 gentamicin 0.1 % ointment 1 applic topical BID RF: 0 Referrals / Follow Up: Rommel Arango MD [Primary Care Provider] - Within 1 Week Long Jovel MD [STAFF PHYSICIAN] - See Referral Note (within 1-2 weeks ) Disposition Disposition (needs filled in before D/C Order can be placed): Home, Self Care Charges/Coding Visit Charges Inpatient E&M: 13477 Disch Hosp
== END 2021-12-30 15:20 | disposition home health service (06) | DRG 291 ==
LOC: ED 21:40 → PCU 22:02
PROVIDERS: Admitting Provider Family Medicine; Emergency Provider Emergency Medicine; PCP Family Medicine; Visit Provider Internal Medicine
DX: I11.0 Hypertensive heart disease with heart failure (principal); I50.33 Acute on chronic diastolic (congestive) heart failure; I47.1 Supraventricular tachycardia; I27.20 Pulmonary hypertension, unspecified; I42.8 Other cardiomyopathies; E11.9 Type 2 diabetes mellitus without complications; I25.10 Atherosclerotic heart disease of native coronary artery without angina pectoris; L89.153 Pressure ulcer of sacral region, stage 3; L89.612 Pressure ulcer of right heel, stage 2; I35.0 Nonrheumatic aortic (valve) stenosis; E78.5 Hyperlipidemia, unspecified; E03.9 Hypothyroidism, unspecified; M10.9 Gout, unspecified; K21.9 Gastro-esophageal reflux disease without esophagitis; G47.33 Obstructive sleep apnea (adult) (pediatric); F32.A Depression, unspecified; F41.9 Anxiety disorder, unspecified; Z79.82 Long term (current) use of aspirin; Z79.890 Hormone replacement therapy; Z79.899 Other long term (current) drug therapy; I25.2 Old myocardial infarction; Z86.711 Personal history of pulmonary embolism; Z86.718 Personal history of other venous thrombosis and embolism; Z87.891 Personal history of nicotine dependence; Z96.653 Presence of artificial knee joint, bilateral; Z95.1 Presence of aortocoronary bypass graft; Z95.5 Presence of coronary angioplasty implant and graft
CPT/HCPCS: 11042; 36415; 71045; 80048; 80053; 82962; 83735; 83880; 84484; 85025; 93005; 97162; 97166; 99285; A4216; J1940

== ENCOUNTER 2022-01-01 01:49 | Inpatient (IN) | payer MEDICARE, OTHER, SELFPAY ==
[2022-01-01] VITALS (34 sets, daily range): BP systolic 87–114; BP diastolic 45–66; PULSE 75–140; RESP 12–24; TEMP 36.5–37.1; O2SAT 91–98; BMI 31.6; BMI 30.7
--- NOTE | 2022-01-01 01:54 | EKG12_ITS ---
Test Reason : CP Blood Pressure : / mmHG Vent. Rate : 081 BPM Atrial Rate : 081 BPM P-R Int : 280 ms QRS Dur : 192 ms QT Int : 478 ms P-R-T Axes : 000 270 103 degrees QTc Int : 555 ms Sinus rhythm with 1st degree A-V block Right bundle branch block Inferior infarct , age undetermined Anterolateral infarct , age undetermined Abnormal ECG Confirmed by TERRENCE JULIAN, YADY ([id number]), newspaper editor LYNETTE FERNANDO ([id number]) on 01/01/2022 10:00:59 AM Referred By: Ruba Brennan Confirmed By:YADY OCAMPO MD
--- NOTE | 2022-01-01 01:54 | RAD_ITS ---
STUDY: X-RAY CHEST REASON FOR EXAM: Female, 81 years old. chest pain TECHNIQUE: Single AP portable view of the chest. COMPARISON: 12/29/2021 FINDINGS: Moderately hypoinflated lungs with stable diffuse patchy airspace disease bilaterally. Stable elevated right hemidiaphragm. Stable cardiomegaly with median sternotomy wires. Normal mediastinum and winifred. Normal visualized pulmonary arteries. Normal visualized aortic arch and descending thoracic aorta. Normal visualized thoracic spine. Normal visualized ribs, clavicles, and shoulders. There is no demonstrated abnormality of the visualized soft tissue structures of the upper abdomen. RAD/Chest 1 View (Portable) IMPRESSION: Stable exam, likely chronic changes of the lungs. Electronically Signed: Israel Ramey DO at 2:24 EST ,
--- NOTE | 2022-01-01 02:01 | EDS_ITS ---
HPI History of Present Illness Chief Complaint: Chest Pain Narrative Narrative: 81-year-old female presenting with chest pain and shortness of breath. She feels as if she has been short of breath all day and this is making her chest hurt. She states that it is full of snot. She admits to having some coughing but is not bringing anything up. No fever or chills. She does admit to an episode of nausea and vomiting earlier today. Patient has a history of CHF, CAD, two-vessel CABG, cardiac stents, aortic stenosis, hyperlipidemia, hypertension, diabetes. Patient was recently hospitalized for CHF exacerbation. She is currently on Lasix. It is difficult to get much history because the patient is hard of hearing. She does state that she is currently not having any chest pain. [facility] Medical History Acute heart failure with preserved ejection fraction (HFpEF) Anxiety and depression Atherosclerosis of coronary artery of [place] heart without angina pectoris Chronic diastolic (congestive) heart failure Chronic respiratory failure Chronic systolic (congestive) heart failure Debility Decubitus ulcer of coccygeal region, stage 3 Depression Diverticulosis Essential hypertension Fall GERD (gastroesophageal reflux disease) Gout History of deep venous thrombosis History of pulmonary embolism History of ST elevation myocardial infarction (STEMI) (04/2013) Hyperlipemia Hypoglycemia due to type 2 diabetes mellitus Hypothyroidism Impaired mobility Insulin dependent diabetes mellitus Morbid obesity Non-ischemic cardiomyopathy Nonrheumatic aortic (valve) stenosis Obstructive sleep apnea Osteoarthritis Right bundle branch block (RBBB) 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, stage 2 Type 2 diabetes mellitus with skin complication, without long-term current use of insulin Type II diabetes mellitus Home Medications albuterol sulfate 2.5 mg INHALATION TID 06/05/19 [History Last Taken 01/29/21] aspirin 81 mg PO DAILY@0800 06/05/19 [History Last Taken 01/29/21] colchicine 0.6 mg PO PRN PRN 06/05/19 [History Last Taken Unknown] folic acid 1 mg PO DAILY 06/05/19 [History Last Taken 01/29/21] isosorbide mononitrate 60 mg PO BID 06/05/19 [History Last Taken 01/29/21] levothyroxine 75 mcg PO DAILY 06/05/19 [History Last Taken 01/29/21] metoprolol succinate 25 mg PO DAILY 06/05/19 [History Last Taken 01/29/21] nitroglycerin 0.4 mg SUBLINGUAL Q5M PRN 06/05/19 [History Last Taken Unknown] omeprazole 40 mg PO DAILY 06/05/19 [History Last Taken 01/29/21] polyethylene glycol 3350 17 g PO DAILY 06/05/19 [History Last Taken 01/29/21] simvastatin 20 mg PO QHS 06/05/19 [History Last Taken 01/29/21] methylcellulose (laxative) 850 g PO DAILY 06/29/19 [History Last Taken 01/29/21] allopurinol 300 mg tablet 300 mg PO DAILY tab 09/19/20 [History Last Taken 01/29/21] fluoxetine 40 mg capsule 40 cap PO DAILY 09/19/20 [History Last Taken 01/29/21] guaifenesin 600 mg tablet, extended release 12 hr 600 mg PO BID PRN 09/19/20 [History Last Taken 01/29/21] conjugated estrogens 0.625 mg VAGINAL MOWEFR 01/30/21 [History Last Taken 01/27/21] montelukast 10 mg PO DAILY 01/30/21 [History Last Taken 01/29/21] nystatin [Nystop] 1 applic TOPICAL BID 02/04/21 [History Last Taken Unknown] potassium chloride 40 meq PO BID 02/04/21 [History Last Taken Unknown] acetaminophen 1,000 mg PO Q6H PRN PRN tablet 02/16/21 [Rx Last Taken Unknown] fluticasone propionate 2 spray NASAL DAILY #1 02/16/21 [Rx Last Taken Unknown] metformin 500 mg PO BID #60 tablet 02/16/21 [Rx Last Taken Unknown] spironolactone 25 mg PO DAILY #30 tablet 02/16/21 [Rx Last Taken Unknown] menthol-zinc oxide 1 applic TOPICAL BID 12/29/21 [History Last Taken Unknown] furosemide [Lasix] 40 mg PO BID 30 Days #60 tab 12/30/21 [Rx Last Taken Unknown] Allergy/AdvReac Type Severity Reaction Status Date / Time Iodinated Contrast Media AdvReac Hives Verified 01/01/22 02:02 [CONTRASTS] Family History Mother Heart disease Surgical History H/O coronary artery bypass surgery (01/08/05) History of bilateral knee replacement History of cholecystectomy History of colectomy History of coronary artery stent placement (08/02/15) History of herniorrhaphy Social History Smoking Status: Former smoker substance use type: does not use ROS ROS ED Constitutional Constitutional ED: Denies chills or fever(s) Respiratory/Chest Respiratory/Chest: Reports cough, dyspnea and dyspnea on exertion Gastrointestinal Gastrointestinal: Reports nausea and vomiting; Denies abdominal pain Genitourinary Genitourinary ED: Denies dysuria or hematuria Musculoskeletal Musculoskeletal: Denies arthralgias or myalgias Neurologic Neurologic: Denies headache(s) or paresthesias EXAM Physical Exam Const Vital Signs: 01/01/22 01:49 01/01/22 01:55 01/01/22 01:59 Temperature 97.8 F Temperature Source Temporal Pulse Rate 80 Respiratory Rate 18 22 H Respiratory Effort Short of Breath Blood Pressure 101/59 L 101/59 L Blood Pressure Mean 73 Pulse Ox 96 Oxygen Delivery Method Room Air 01/01/22 02:04 01/01/22 02:11 01/01/22 02:27 Temperature Temperature Source Pulse Rate Respiratory Rate Respiratory Effort Blood Pressure 87/45 L 95/49 L Blood Pressure Mean 59 64 Pulse Ox 92 Oxygen Delivery Method Room Air 01/01/22 03:15 Temperature Temperature Source Pulse Rate 75 Respiratory Rate 18 Respiratory Effort Blood Pressure Blood Pressure Mean Pulse Ox Oxygen Delivery Method Positive obese General Appearance ED: NAD Nutritional Appearance: obese HEENT normocephalic and atraumatic Eyes PERRL and EOMs intact bilaterally Chest Wall inspection of chest normal and palpation of chest normal Resp normal respiratory effort Effort and Inspection: respiratory distress Cardio regular rate and regular rhythm Extremity normal to inspection General Extremety ED: Negative for tenderness Neuro oriented x3 Sensorium / Orientation: awake and alert Psych mental status grossly normal Skin no rashes or lesions noted Heart Score History: Highly Suspicious Age: >/= 65 years Risk Factors: >/= 3 Risk Factors or History of CAD Troponin: >/=3 x Normal Limit Score: 8 MDM MDM MDM Narrative Medical decision making narrative: Patient initially presenting as a STEMI alert as she had an abnormal EKG with ST elevations in leads III and aVF as well as depressions in lead I and aVL. We did not have patient identification at that point. STEMI alert was called and EKG was reviewed with Dr. Brennan. He did come into evaluate the patient who is currently pain-free. On my interpretation this was a sinus rhythm with a ventricular rate 81 bpm with right bundle branch block. First-degree AV block noted. EKG was compared to previous and he did not feel there was any significant interval change from her EKG on 29 December 2021. Patient's troponin came back elevated at 393 however this is lower than her previous visit. Patient complained of nausea and repeat EKG was performed at 314 which shows a sinus rhythm with a ventricular to 77 bpm without significant change from previous EKG. Chest x-ray does not appear to be to acutely change on my interpretation. The radiologist agree. CBC shows white blood cell count 11.2, hemoglobin 9.5 (at baseline), platelets 285. On 12/30/2021 it was 1.57. BNP is 2319 which is slightly lower than previous. Patient noted to have a potassium of 6.6 which was treated with albuterol, insulin, D50, calcium gluconate, 500 cc IV fluid bolus. Head Silverman recommended subcu heparin and aspirin which was given. He does not believe she needs to go to the Clinical Rehabilitation Specialist tonight. Patient will be admitted to the ICU after speaking to the hospitalist. Impression: 1. NSTEMI 2. Hyperkalemia 3. Nausea/vomiting 4. Dyspnea Lab Data Labs: Laboratory Results - last 24 hr 01/01/22 01/01/22 01/01/22 02:00 02:00 02:00 WBC 11.2 H RBC 3.66 L Hgb 9.5 L Hct 30.8 L MCV 84.2 MCH 26.0 L MCHC 30.8 L RDW Std Deviation 55.8 H RDW Coeff of Oscar 18.6 H Plt Count 285 MPV 11.1 Immature Gran % (Auto) 0.500 Neut % (Auto) 84.6 H Lymph % (Auto) 4.4 L [place] % (Auto) 10.1 H Eos % (Auto) 0.1 Baso % (Auto) 0.3 Absolute Neuts (auto) 9.5 H Absolute Lymphs (auto) 0.49 L Nucleated RBC % 1.0 Anisocytosis 1+ Sodium 130 L Potassium 6.6 H* Chloride 101 Carbon Dioxide 18.0 L Anion Gap 11 BUN 80 H Creatinine 1.85 H Estim Creat Clear Calc 20.06 Est GFR (MDRD) Af Amer 34 L Est GFR (MDRD) Non-Af 28 L BUN/Creatinine Ratio 43.2 H Glucose 196 H Calcium 9.3 Troponin I High Sens 393 H* B-Natriuretic Peptide 2319.0 H Radiography Diagnostic Testing: Clinical Impression(s) from Imaging Studies Chest X-Ray 01/01/22 01:54 IMPRESSION: Stable exam, likely chronic changes of the lungs. Electronically Signed: Israel Ramey DO at 2:24 EST , Discharge Plan Triage Chief Complaint: Chest Pain ED Provider: Ruddy Nieto Dx/Rx/DC Orders Primary Care Provider: Rommel Arango
--- NOTE | 2022-01-01 02:06 | ED.RN ---
pt denies cp at this time
[2022-01-01 02:08] LABS: Absolute Lymphocyte Count 0.49 X10^3/uL (0.83-4.51); Absolute Neutrophil Count 9.5 X10^3/uL (2.0-7.7); Basophil# 0.03 X10^3/uL; Basophil% 0.3 % (0-1); Eosinophil# 0.01 X10^3/uL; Eosinophils% 0.1 % (0-5); Hematocrit 30.8 % (37-47); Hemoglobin 9.5 g/dL (12.0-15.0); Lymphocyte # 0.49 X10^3/ul (0.83-4.51); Lymphocyte % 4.4 % (19-41); Mean Corp Hgb Conc 30.8 g/dL (32-36); Mean Corpuscular Volume 84.2 fL (81-99); Mean Platelet Vol. 11.1 fl (6.2-12.0); Monocyte# 1.14 X10^3/uL; Monocyte% 10.1 % (0-10); Neutrophil # 9.51 X10^3/uL (2.7-7.7); Neutrophil % 84.6 % (47-70); POSITIVE DIFFERENTIAL YES; Platelet Count 285 K/mm3 (150-450); RBC Distribution Width CV 18.6 % (11.6-14.6); RBC Distribution Width SD 55.8 fl (35.1-43.9); Red Blood Count 3.66 M/mm3 (4.2-5.4); White Blood Count 11.2 K/mm3 (4.4-11.0)
--- NOTE | 2022-01-01 02:13 | ED.RN ---
baby asa x 4 given by squad
[2022-01-01] MEDS: Heparin Injection (Vial) 5,000 UNIT/ML VIAL 5000 UNIT SC ×4 (02:17→20:33)
--- NOTE | 2022-01-01 02:31 | ED.RN ---
95/42 bp when levophed arrived, will let Dr Nieto know. Central line kit at bedside if needed. Daughter also reports she gave the patient zodon arond 2200. Patient feeling restless since and is nauseated again, now. Dr Nieto is aware.
[2022-01-01 02:45] LABS: Anisocytosis 1+; Differential Indicated SCAN CRITERIA MET
--- NOTE | 2022-01-01 02:52 | ED.RN ---
Holding the levophed at htis time, per Dr Nieto.
[2022-01-01 02:53] LABS: Anion Gap 11 (5-15); BUN 80 mg/dL (7-18); BUN/Creat Ratio 43.2 RATIO (10-20); Calcium,Total 9.3 mg/dL (8.5-10.1); Chloride 101 mmol/L (98-107); Creatinine, Serum 1.85 mg/dL (0.55-1.02); EST Glomerular Filtration Rate 28 mL/min (>60); Est Glom Filt Rate - Afr Amer 34 mL/min (>60); Estimated Creatinine Clearance 20.06 ml/min; Glucose 196 mg/dL (74-106); Potassium 6.6 mmol/L (3.5-5.1); Sodium Level 130 mmol/L (136-145); Troponin-I HS 393 pg/mL (3.0-54.0)
[2022-01-01] MEDS: proMETHazine 25 MG/ML Syringe 12.5 MG IM (03:12)
[2022-01-01] MEDS: Albuterol 2.5 MG/3 ML VIAL.NEB. INHALATION ×5 (03:13→22:36)
[2022-01-01] MEDS: Calcium Gluconate IV 3 GM in Syringe 1 EACH IV (03:17)
[2022-01-01] MEDS: Insulin Lispro 10 UNIT in Syringe 0 ML 6 UNIT IV ×2 (03:18→09:19)
--- NOTE | 2022-01-01 03:21 | EKG12_ITS ---
Test Reason : REPEAT Blood Pressure : / mmHG Vent. Rate : 077 BPM Atrial Rate : 077 BPM P-R Int : 312 ms QRS Dur : 178 ms QT Int : 470 ms P-R-T Axes : 074 262 084 degrees QTc Int : 531 ms Sinus rhythm with 1st degree A-V block Non-specific intra-ventricular conduction block Inferior infarct , age undetermined Abnormal ECG Confirmed by TERRENCE JULIAN, YADY ([id number]), newspaper copy editor LYNETTE FERNANDO ([id number]) on 01/01/2022 10:01:15 AM Referred By: Ruba Brennan Confirmed By:YADY OCAMPO MD
--- NOTE | 2022-01-01 03:31 | HP.PCM_ITS ---
[facility] - General General Date of Admission: 01/01/22 HPI Narrative SHAWN FRIEDMAN, is a 81 F who presents to the emergency room with chest pain and shortness of breath. Patient has significant past medical history being discharged on 30 December for CHF exacerbation. It is difficult to obtain history from this patient due to her hearing impairment ,however, she states she is uncomfortable and anxious and has been feeling a burning chest discomfort throughout the day. There are no fevers or chills or nausea or vomiting. Initially she was worked up for ST elevation SD ,however, after evaluation by interventional cardiology it was determined that she would be admitted and observed prior to any procedures. Subsequent EKGs do not confirm ST elevation at this time and EKG looks similar to previous admission. Patient does have low blood pressure and elevated potassium and will be admitted overnight to the ICU and cardiology will be consulted. [facility] Medical History Acute heart failure with preserved ejection fraction (HFpEF) Anxiety and depression Atherosclerosis of coronary artery of [place] heart without angina pectoris Chronic diastolic (congestive) heart failure Chronic respiratory failure Chronic systolic (congestive) heart failure Debility Decubitus ulcer of coccygeal region, stage 3 Depression Diverticulosis Essential hypertension Fall GERD (gastroesophageal reflux disease) Gout History of deep venous thrombosis History of pulmonary embolism History of ST elevation myocardial infarction (STEMI) (04/2013) Hyperlipemia Hypoglycemia due to type 2 diabetes mellitus Hypothyroidism Impaired mobility Insulin dependent diabetes mellitus Morbid obesity Non-ischemic cardiomyopathy Nonrheumatic aortic (valve) stenosis Obstructive sleep apnea Osteoarthritis Right bundle branch block (RBBB) 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, stage 2 Type 2 diabetes mellitus with skin complication, without long-term current use of insulin Type II diabetes mellitus Home Medications albuterol sulfate 2.5 mg INHALATION TID 06/05/19 [History Last Taken 01/29/21] aspirin 81 mg PO DAILY@0800 06/05/19 [History Last Taken 01/29/21] colchicine 0.6 mg PO PRN PRN 06/05/19 [History Last Taken Unknown] folic acid 1 mg PO DAILY 06/05/19 [History Last Taken 01/29/21] isosorbide mononitrate 60 mg PO BID 06/05/19 [History Last Taken 01/29/21] levothyroxine 75 mcg PO DAILY 06/05/19 [History Last Taken 01/29/21] metoprolol succinate 25 mg PO DAILY 06/05/19 [History Last Taken 01/29/21] nitroglycerin 0.4 mg SUBLINGUAL Q5M PRN 06/05/19 [History Last Taken Unknown] omeprazole 40 mg PO DAILY 06/05/19 [History Last Taken 01/29/21] polyethylene glycol 3350 17 g PO DAILY 06/05/19 [History Last Taken 01/29/21] simvastatin 20 mg PO QHS 06/05/19 [History Last Taken 01/29/21] methylcellulose (laxative) 850 g PO DAILY 06/29/19 [History Last Taken 01/29/21] allopurinol 300 mg tablet 300 mg PO DAILY tab 09/19/20 [History Last Taken 01/29/21] fluoxetine 40 mg capsule 40 cap PO DAILY 09/19/20 [History Last Taken 01/29/21] guaifenesin 600 mg tablet, extended release 12 hr 600 mg PO BID PRN 09/19/20 [History Last Taken 01/29/21] conjugated estrogens 0.625 mg VAGINAL MOWEFR 01/30/21 [History Last Taken 01/27/21] montelukast 10 mg PO DAILY 01/30/21 [History Last Taken 01/29/21] nystatin [Nystop] 1 applic TOPICAL BID 02/04/21 [History Last Taken Unknown] potassium chloride 40 meq PO BID 02/04/21 [History Last Taken Unknown] acetaminophen 1,000 mg PO Q6H PRN PRN tablet 02/16/21 [Rx Last Taken Unknown] fluticasone propionate 2 spray NASAL DAILY #1 02/16/21 [Rx Last Taken Unknown] metformin 500 mg PO BID #60 tablet 02/16/21 [Rx Last Taken Unknown] spironolactone 25 mg PO DAILY #30 tablet 02/16/21 [Rx Last Taken Unknown] menthol-zinc oxide 1 applic TOPICAL BID 12/29/21 [History Last Taken Unknown] furosemide [Lasix] 40 mg PO BID 30 Days #60 tab 12/30/21 [Rx Last Taken Unknown] Allergy/AdvReac Type Severity Reaction Status Date / Time Iodinated Contrast Media AdvReac Hives Verified 01/01/22 02:02 [CONTRASTS] Family History Mother Heart disease Surgical History H/O coronary artery bypass surgery (01/08/05) History of bilateral knee replacement History of cholecystectomy History of colectomy History of coronary artery stent placement (08/02/15) History of herniorrhaphy Social History Smoking Status: Former smoker substance use type: does not use ROS Constitutional Constitutional: Denies chills or fever(s) Eyes Eyes: Denies blurry vision ENT HEENT: Reports abnormal hearing Cardiovascular Cardiovascular: Reports chest pain Respiratory/Chest Respiratory/Chest: Reports cough Gastrointestinal Gastrointestinal: Denies abdominal pain Genitourinary Genitourinary: Denies dysuria Musculoskeletal Musculoskeletal: Denies back pain Integumentary Integumentary: Denies dry skin Neurologic Neurologic: Denies abnormal gait Psychiatric Psychiatric: Reports anxiety Endocrine Endocrinology: Denies change in body appearance Vital Signs Vital Signs Vital Signs: 01/01/22 01:49 01/01/22 01:55 01/01/22 01:59 Temperature 97.8 F Temperature Source Temporal Pulse Rate 80 Respiratory Rate 18 22 H Respiratory Effort Short of Breath Blood Pressure 101/59 L 101/59 L Blood Pressure Mean 73 Pulse Ox 96 Oxygen Delivery Method Room Air 01/01/22 02:04 01/01/22 02:11 01/01/22 02:27 Temperature Temperature Source Pulse Rate Respiratory Rate Respiratory Effort Blood Pressure 87/45 L 95/49 L Blood Pressure Mean 59 64 Pulse Ox 92 Oxygen Delivery Method Room Air 01/01/22 03:15 Temperature Temperature Source Pulse Rate 75 Respiratory Rate 18 Respiratory Effort Blood Pressure Blood Pressure Mean Pulse Ox Oxygen Delivery Method Weight Weight: 181 lb 10.574 oz Body Mass Index (BMI) 31.6 Physical Exam Const oriented x3 General Appearance: cooperative HEENT normocephalic and head/scalp atraumatic Eyes PERRL Neck supple Lymph Lymphatic: no lymphadenopathy noted Resp normal respiratory effort Cardio regular rate, regular rhythm, S1 normal heart sound and S2 normal heart sound GI normal to inspection, nondistended, normoactive bowel sounds Extremity General Extremity: edema bilateral Skin General Skin Exam: turgor normal Neuro CN's II-XII intact bilaterally Psych Mood & Affect: anxious Results Lab / Micro Data Result Diagrams: 01/01/22 02:00 01/01/22 02:00 Labs: Laboratory Results - last 24 hr 01/01/22 02:00: WBC 11.2 H, RBC 3.66 L, Hgb 9.5 L, Hct 30.8 L, MCV 84.2, MCH 26.0 L, MCHC 30.8 L, RDW Std Deviation 55.8 H, RDW Coeff of Oscar 18.6 H, Plt Count 285, MPV 11.1, Immature Gran % (Auto) 0.500, Neut % (Auto) 84.6 H, Lymph % (Auto) 4.4 L, [place] % (Auto) 10.1 H, Eos % (Auto) 0.1, Baso % (Auto) 0.3, Absolute Neuts (auto) 9.5 H, Absolute Lymphs (auto) 0.49 L, Nucleated RBC % 1.0, Anisocytosis 1+ 01/01/22 02:00: Sodium 130 L, Potassium 6.6 H*, Chloride 101, Carbon Dioxide 18.0 L, Anion Gap 11, BUN 80 H, Creatinine 1.85 H, Estim Creat Clear Calc 20.06, Est GFR (MDRD) Af Amer 34 L, Est GFR (MDRD) Non-Af 28 L, BUN/Creatinine Ratio 43.2 H, Glucose 196 H, Calcium 9.3, Troponin I High Sens 393 H* 01/01/22 02:00: B-Natriuretic Peptide 2319.0 H Radiology Impression Chest X-Ray 01/01/22 01:54 IMPRESSION: Stable exam, likely chronic changes of the lungs. Electronically Signed: Israel Ramey DO at 2:24 EST , Assessment & Plan Assessment/Plan (1) Chest pain: (2) Elevated troponin I level: (3) Fatigue: (4) Acute decompensated heart failure: PLAN: 1. Chest pain with elevated troponin?admit patient to ICU overnight and consult interventional cardiology, patient received heparin subcutaneously in the emergency room and will be observed and monitored, morphine will be held due to hypotension ,however, will continue oxygen and aspirin therapy, blood pressure is too low at this time for nitroglycerin. Pain appears to be minimal at this time and it seems that she is more agitated or anxious 2. Hyperkalemia?patient had received 2 treatments of albuterol and calcium gluconate in the emergency room setting and a 500 cc bolus of fluid and will repeat BMP in the morning and determine if further treatment is necessary. 3. Congestive heart failure?continue Lasix 4. DVT prophylaxis?SCDs and patient has received heparin 5. Patient did express to me with daughter in the room that she wishes to be DNR comfort care only Charges/Coding Visit Charges Inpatient E&M: 78756 Init Hosp L3
[2022-01-01] MEDS: Mag Hydrox/Al Hydrox/Simeth 30 ML UDC PO (03:45)
[2022-01-01 05:07] LABS: Magnesium 2.3 mg/dL (1.6-2.6); Troponin-I HS 353 pg/mL (3.0-54.0)
[2022-01-01] MEDS: Levothyroxine 75 MCG Tablet PO (06:11)
[2022-01-01 08:13] LABS: Absolute Lymphocyte Count 0.49 X10^3/uL (0.83-4.51); Absolute Neutrophil Count 9.8 X10^3/uL (2.0-7.7); Basophil# 0.03 X10^3/uL; Basophil% 0.3 % (0-1); Hematocrit 31.2 % (37-47); Hemoglobin 9.7 g/dL (12.0-15.0); Lymphocyte # 0.49 X10^3/ul (0.83-4.51); Lymphocyte % 4.1 % (19-41); Mean Corp Hgb Conc 31.1 g/dL (32-36); Mean Corpuscular Hgb 25.9 pg (27.0-32.0); Mean Corpuscular Volume 83.2 fL (81-99); Mean Platelet Vol. 10.9 fl (6.2-12.0); Monocyte# 1.56 X10^3/uL; Monocyte% 13.1 % (0-10); NRBC Flagged by Analyzer 0.9 % (0-5); Neutrophil # 9.77 X10^3/uL (2.7-7.7); POSITIVE DIFFERENTIAL YES; Platelet Count 277 K/mm3 (150-450); RBC Distribution Width CV 18.6 % (11.6-14.6); RBC Distribution Width SD 55.6 fl (35.1-43.9); Red Blood Count 3.75 M/mm3 (4.2-5.4); White Blood Count 11.9 K/mm3 (4.4-11.0)
[2022-01-01 08:14] LABS: Differential Indicated SCAN CRITERIA MET
[2022-01-01 08:35] LABS: International Normalized Ratio 1.6; Prothrombin Time (Protime)PT. 17.9 SECONDS (11.7-14.9)
[2022-01-01 08:41] LABS: Anion Gap 8 (5-15); BUN 79 mg/dL (7-18); BUN/Creat Ratio 45.4 RATIO (10-20); Chloride 103 mmol/L (98-107); Creatinine, Serum 1.74 mg/dL (0.55-1.02); EST Glomerular Filtration Rate 30 mL/min (>60); Est Glom Filt Rate - Afr Amer 36 mL/min (>60); Estimated Creatinine Clearance 21.33 ml/min; Glucose 137 mg/dL (74-106); Magnesium 2.4 mg/dL (1.6-2.6); Potassium 6.5 mmol/L (3.5-5.1); Sodium Level 130 mmol/L (136-145); Troponin-I HS 300 pg/mL (3.0-54.0)
--- NOTE | 2022-01-01 08:46 | ECHOD_ITS ---
Reason For Study: NSTEMI Procedure This was a 2D Doppler, Color Flow transthoracic echocardiogram. The study was technically difficult. Due to body habitus. Left Ventricle Normal LV size. The estimated ejection fraction is 25 %. Stage 3 diastolic dysfunction. There is moderate to severe global hypokinesis of the left ventricle. Right Ventricle Normal RV size. Normal systolic function. Atria The left atrium is severely enlarged. Normal right atrium. Mitral Valve There is mild to moderate mitral annular calcification. Tricuspid Valve Normal tricuspid valve. Moderate (2+) tricuspid valve insufficiency. Pulmonary artery systolic pressure is 62 mmHg. Aortic Valve Trisinus/trileaflet aortic valve. Moderate focal aortic valve calcification. Peak aortic valve gradient 27 mmHg. Mean aortic valve gradient 16 mmHg. Great Vessels Normal aortic root. The pulmonary artery is normal size. Normal inferior vena cava. Pericardium/Pleural No pericardial effusion. Medication Deferred Definity due to increased PAP >56mmHg. MMode/2D Measurements & Calculations LVIDd: 5.7 cm IVSd: 1.0 cm LAV(MOD-bp): 156.6 ml LVIDs: 4.9 cm LVPWd: 1.0 cm LAV(MOD-bp) Indexed: 83.9 ml/m2 RVDd: 3.1 cm FS: 13.6 % LAV(MOD-sp2): 151.7 ml LAV(MOD-sp4): 158.8 ml LA dimension(2D): 5.3 cm LA A4 area: 37.3 cm2 RA A4 area: 17.8 cm2 Time Measurements MV dec time: 0.12 sec Doppler Measurements & Calculations MV E max josemanuel: 116.9 cm/sec Lat Peak E' Josemanuel: 4.3 cm/sec Med Peak E' Josemanuel: 6.8 cm/sec MV A max josemanuel: 77.2 cm/sec E/E' lat: 27.4 E/E' med: 17.2 MV E/A: 1.5 Ao V2 max: 260.4 cm/sec PA V2 max: 192.8 cm/sec PI end-d josemanuel: 163.8 cm/sec Ao max P.1 mmHg PA V2 mean: 113.8 cm/sec Ao V2 mean: 192.4 cm/sec PA V2 VTI: 30.9 cm Ao mean P.0 mmHg Ao V2 VTI: 51.9 cm TR max josemanuel: 370.1 cm/sec TR max P.5 mmHg ECHO/Echo Complete Interpretation Summary Normal LV size. The estimated ejection fraction is 25 %. There is moderate to severe global hypokinesis of the left ventricle. Stage 3 diastolic dysfunction. Moderate focal aortic valve calcification. Mean aortic valve gradient 16 mmHg. Compared to previous study, the left ventricular systolic function has worsened .. Ordering Physician: Rolf Felix Referring Physician: Rommel Arango Performed By: Siobhan Slade RDCS, RVT
[2022-01-01] MEDS: Fluticasone 0.05% 1 SPRAY NASAL.SRY 2 SPRAY NASAL (09:20)
[2022-01-01] MEDS: Dextrose 10%-Water 250 ML 999 ML IV (09:20)
[2022-01-01] MEDS: Furosemide 20 MG/2 ML VIAL IV ×2 (09:22→18:01)
--- NOTE | 2022-01-01 09:40 | CON.PCM.CA_ITS ---
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, stage 2: (2) Hyperlipemia: (3) Essential hypertension: (4) Right bundle branch block (RBBB): (5) Nonrheumatic aortic (valve) stenosis: (6) Fatigue: (7) Chest pain: (8) Acute decompensated heart failure: (9) H/O coronary artery bypass surgery: (10) History of coronary artery stent placement: (11) History of ST elevation myocardial infarction (STEMI): (12) Elevated troponin I level: PLAN: 81-year-old patient with extensive cardiac history, presented with chest discomfort and shortness of breath Also according to the daughter she had also a dry cough there is no fever Had a history of prior myocardial infarction underwent bypass surgery in December 2004 with DAVIDSON to LAD and SVG to OM1 10 years later in July 2015 she had a PCI using bare-metal stent to the ostial and proximal RCA. Evidently she was recently here at the [facility] and discharged home and brought back because of symptoms of chest discomfort with a subsequent elevation of cardiac biomarker which is a stable. Also on review of the record patient had acute on chronic systolic and diastolic heart failure with ejection fraction in the range of 35-40 on echocardiogram done in 2019 and moderate aortic stenosis, probably underestimated due to the LV dysfunction. Cardiac care plan recommendation; 1. Noted patient had hyperkalemia, anemia and has been on treatment. Acute on chronic systolic and diastolic heart failure. Has been on treatment with Lasix and monitoring the renal function and electroly amelia. 2. Decision was made for DNR and comfort care, from cardiac standpoint at this point we will reevaluate by echocardiogram in this admission 3. There is no worsening of her troponin elevation at this time which is declining and there is no active symptoms of chest pain. 4. Based on her renal dysfunction and DNR status with extensive cardiac history at this point she is a candidate for conservative treatment and will follow-up clinically. 5. Cardiac care plan, recommendation has been discussed with the nursing staff in CCU HPI Consult Data Date of Consult: 01/01/22 HPI Narrative Reason for Consultation: Patient with CAD, CABG,Elevated troponin HPI Narrative: SHAWN FRIEDMAN, is a 81 F who presents [facility] Medical History Acute heart failure with preserved ejection fraction (HFpEF) Anxiety and depression Atherosclerosis of coronary artery of [place] heart without angina pectoris Chronic diastolic (congestive) heart failure Chronic respiratory failure Chronic systolic (congestive) heart failure Debility Decubitus ulcer of coccygeal region, stage 3 Depression Diverticulosis Essential hypertension Fall GERD (gastroesophageal reflux disease) Gout History of deep venous thrombosis History of pulmonary embolism History of ST elevation myocardial infarction (STEMI) (04/2013) Hyperlipemia Hypoglycemia due to type 2 diabetes mellitus Hypothyroidism Impaired mobility Insulin dependent diabetes mellitus Morbid obesity Non-ischemic cardiomyopathy Nonrheumatic aortic (valve) stenosis Obstructive sleep apnea Osteoarthritis Right bundle branch block (RBBB) 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, stage 2 Type 2 diabetes mellitus with skin complication, without long-term current use of insulin Type II diabetes mellitus Home Medications albuterol sulfate 2.5 mg INHALATION TID 06/05/19 [History Last Taken 01/29/21] aspirin 81 mg PO DAILY@0800 06/05/19 [History Last Taken 01/29/21] colchicine 0.6 mg PO PRN PRN 06/05/19 [History Last Taken Unknown] folic acid 1 mg PO DAILY 06/05/19 [History Last Taken 01/29/21] isosorbide mononitrate 60 mg PO BID 06/05/19 [History Last Taken 01/29/21] levothyroxine 75 mcg PO DAILY 06/05/19 [History Last Taken 01/29/21] metoprolol succinate 25 mg PO DAILY 06/05/19 [History Last Taken 01/29/21] nitroglycerin 0.4 mg SUBLINGUAL Q5M PRN 06/05/19 [History Last Taken Unknown] omeprazole 40 mg PO DAILY 06/05/19 [History Last Taken 01/29/21] polyethylene glycol 3350 17 g PO DAILY 06/05/19 [History Last Taken 01/29/21] simvastatin 20 mg PO QHS 06/05/19 [History Last Taken 01/29/21] methylcellulose (laxative) 850 g PO DAILY 06/29/19 [History Last Taken 01/29/21] allopurinol 300 mg tablet 300 mg PO DAILY tab 09/19/20 [History Last Taken 01/29/21] fluoxetine 40 mg capsule 40 cap PO DAILY 09/19/20 [History Last Taken 01/29/21] guaifenesin 600 mg tablet, extended release 12 hr 600 mg PO BID PRN 09/19/20 [History Last Taken 01/29/21] conjugated estrogens 0.625 mg VAGINAL MOWEFR 01/30/21 [History Last Taken 01/27/21] montelukast 10 mg PO DAILY 01/30/21 [History Last Taken 01/29/21] nystatin [Nystop] 1 applic TOPICAL BID 02/04/21 [History Last Taken Unknown] potassium chloride 40 meq PO BID 02/04/21 [History Last Taken Unknown] acetaminophen 1,000 mg PO Q6H PRN PRN tablet 02/16/21 [Rx Last Taken Unknown] fluticasone propionate 2 spray NASAL DAILY #1 02/16/21 [Rx Last Taken Unknown] metformin 500 mg PO BID #60 tablet 02/16/21 [Rx Last Taken Unknown] spironolactone 25 mg PO DAILY #30 tablet 02/16/21 [Rx Last Taken Unknown] menthol-zinc oxide 1 applic TOPICAL BID 12/29/21 [History Last Taken Unknown] furosemide [Lasix] 40 mg PO BID 30 Days #60 tab 12/30/21 [Rx Last Taken Unknown] Allergy/AdvReac Type Severity Reaction Status Date / Time Iodinated Contrast Media AdvReac Hives Verified 01/01/22 02:02 [CONTRASTS] Family History Mother Heart disease Surgical History H/O coronary artery bypass surgery (01/08/05) History of bilateral knee replacement History of cholecystectomy History of colectomy History of coronary artery stent placement (08/02/15) History of herniorrhaphy Social History (Updated 01/01/22 @ 05:19 by Salma Maldonado) household members: none housing: house Smoking Status: Former smoker substance use type: does not use Physical Exam Narrative Seen and evaluated in the ER as well as in CCU today. This patient is very hard of hearing Patient alert and orientated x3, not in acute distress Review of examining chair assembler showed underlying normal sinus with Ist degree AV block. Cardiac examination; S1-S2 regular, systolic murmur heard in the aortic valve area No diastolic murmur, no pericardial rub or gallop Chest examination; bilateral inspiratory rales Abdomen; soft Examination lower extremity no clubbing no cyanosis no lower extremity edema Central nervous system exam no focal neurological deficit Risk Stratification Risk Stratification Applicable: Yes Age >/= 65: Yes >/= 3 CAD Risk Factors (HTN, HLD, DM, family hx of CAD, or current smoker): Yes Aspirin Use in the Past 7 Days: Yes Severe Angina (>/= episodes in 24 hours): No EKG ST Changes >/= 0.5mm: No Positive Cardiac Marker: Yes CORONA Risk Stratification Score: 4 CORONA % Risk: 20% Risk Objective Data Vital Signs: Vital Signs Temp Pulse Resp BP Pulse Ox 98.3 F 81 18 113/52 L 95 01/01/22 09:00 01/01/22 09:00 01/01/22 09:00 01/01/22 09:00 01/01/22 09:00 Oxygen Flow Rate (L/min) 2 Oxygen Delivery Method Nasal Cannula Weight: 176 lb 9.444 oz Body Mass Index (BMI) 30.7 Intake & Output: Intake and Output for Last 24 Hours 12/30/21 12/31/21 01/01/22 23:59 23:59 23:59 Intake Total 890 / 890 Output Total 245 / 245 Balance 645 / 645 Lab / Micro Data Result Diagrams: 01/01/22 08:05 01/01/22 08:05 Labs: Laboratory Results - last 24 hr 01/01/22 02:00: WBC 11.2 H, RBC 3.66 L, Hgb 9.5 L, Hct 30.8 L, MCV 84.2, MCH 26.0 L, MCHC 30.8 L, RDW Std Deviation 55.8 H, RDW Coeff of Oscar 18.6 H, Plt Count 285, MPV 11.1, Immature Gran % (Auto) 0.500, Neut % (Auto) 84.6 H, Lymph % (Auto) 4.4 L, [place] % (Auto) 10.1 H, Eos % (Auto) 0.1, Baso % (Auto) 0.3, Absolute Neuts (auto) 9.5 H, Absolute Lymphs (auto) 0.49 L, Nucleated RBC % 1.0, Anisocytosis 1+ 01/01/22 02:00: Sodium 130 L, Potassium 6.6 H*, Chloride 101, Carbon Dioxide 18.0 L, Anion Gap 11, BUN 80 H, Creatinine 1.85 H, Estim Creat Clear Calc 20.06, Est GFR (MDRD) Af Amer 34 L, Est GFR (MDRD) Non-Af 28 L, BUN/Creatinine Ratio 43.2 H, Glucose 196 H, Calcium 9.3, Troponin I High Sens 393 H* 01/01/22 02:00: B-Natriuretic Peptide 2319.0 H 01/01/22 04:45: Magnesium 2.3, Troponin I High Sens 353 H* 01/01/22 08:05: WBC 11.9 H, RBC 3.75 L, Hgb 9.7 L, Hct 31.2 L, MCV 83.2, MCH 25.9 L, MCHC 31.1 L, RDW Std Deviation 55.6 H, RDW Coeff of [place] 18.6 H, Plt Count 277, MPV 10.9, Immature Gran % (Auto) 0.500, Neut % (Auto) 82.0 H, Lymph % (Auto) 4.1 L, [place] % (Auto) 13.1 H, Eos % (Auto) 0.0, Baso % (Auto) 0.3, Absolute Neuts (auto) 9.8 H, Absolute Lymphs (auto) 0.49 L, Nucleated RBC % 0.9, Diff Path Review February01/01/22 08:05: PT 17.9 H, INR 1.6 01/01/22 08:05: Sodium 130 L, Potassium 6.5 H*, Chloride 103, Carbon Dioxide 19.0 L, Anion Gap 8, BUN 79 H, Creatinine 1.74 H, Estim Creat Clear Calc 21.33, Est GFR (MDRD) Af Amer 36 L, Est GFR (MDRD) Non-Af 30 L, BUN/Creatinine Ratio 45.4 H, Glucose 137 H, Calcium 10.0, Magnesium 2.4 01/01/22 08:05: Troponin I High Sens 300 H* Cardiology Labs/Tests 01/01/22 02:00: WBC 11.2 H, RBC 3.66 L, Hgb 9.5 L, Hct 30.8 L, MCV 84.2, MCH 26.0 L, MCHC 30.8 L, Plt Count 285, MPV 11.1, Immature Gran % (Auto) 0.500, Neut % (Auto) 84.6 H, Lymph % (Auto) 4.4 L, [place] % (Auto) 10.1 H, Eos % (Auto) 0.1, Baso % (Auto) 0.3, Absolute Neuts (auto) 9.5 H, Nucleated RBC % 1.0 01/01/22 02:00: Sodium 130 L, Potassium 6.6 H*, Chloride 101, Carbon Dioxide 18.0 L, Anion Gap 11, BUN 80 H, Creatinine 1.85 H, Est GFR (MDRD) Af Amer 34 L, Est GFR (MDRD) Non-Af 28 L, BUN/Creatinine Ratio 43.2 H, Glucose 196 H, Calcium 9.3 01/01/22 02:00: B-Natriuretic Peptide 2319.0 H 01/01/22 04:45: Magnesium 2.3 01/01/22 08:05: WBC 11.9 H, RBC 3.75 L, Hgb 9.7 L, Hct 31.2 L, MCV 83.2, MCH 25.9 L, MCHC 31.1 L, Plt Count 277, MPV 10.9, Immature Gran % (Auto) 0.500, Neut % (Auto) 82.0 H, Lymph % (Auto) 4.1 L, [place] % (Auto) 13.1 H, Eos % (Auto) 0.0, Baso % (Auto) 0.3, Absolute Neuts (auto) 9.8 H, Nucleated RBC % 0.9 01/01/22 08:05: PT 17.9 H, INR 1.6 01/01/22 08:05: Sodium 130 L, Potassium 6.5 H*, Chloride 103, Carbon Dioxide 19.0 L, Anion Gap 8, BUN 79 H, Creatinine 1.74 H, Est GFR (MDRD) Af Amer 36 L, Est GFR (MDRD) Non-Af 30 L, BUN/Creatinine Ratio 45.4 H, Glucose 137 H, Calcium 10.0, Magnesium 2.4 Rhythm: NS rhythm with -ist degree AV block EKG: Sinus rhythm with first-degree AV block Right bundle branch block Age undetermined inferior LA Age i undetermined anterolateral LA Radiography Diagnostic Testing: Radiology Impression Chest X-Ray 01/01/22 01:54 IMPRESSION: Stable exam, likely chronic changes of the lungs. Electronically Signed: Israel Ramey DO at 2:24 EST ,
--- NOTE | 2022-01-01 11:45 | PCM.CONS.R ---
Assessment & Plan Assessment/Plan (1) Acute heart failure with preserved ejection fraction (HFpEF): (2) Hyperkalemia: (3) JULISSA (acute kidney injury): PLAN: She was recently admitted with congestive heart failure. Serum creatinine fluctuates between 1.3-1.5 with several variations. Currently creatinine is around 1.6-1.8. She was sent home on spironolactone, potassium supplements which is likely cause of hyperkalemia. Clinically does not have significant volume overload. Renal failure is likely cardiorenal syndrome. Wilcox catheter is in and is draining clear yellow urine, chances of obstruction are low. (4) Hyperkalemia: PLAN: She has received calcium, insulin, dextrose. Continue Lasix. She failed swallow evaluation. She may need barium swallow. To be done later today or tomorrow. IV bicarbonate for now. Discussed with staff. HPI Consult Data Date of Consult: 01/01/22 HPI Narrative HPI Narrative: SHAWN FRIEDMAN, is a 81 F who presents to the hospital with chest pain and shortness of breath. Nephrology consulted for hyperkalemia. She was recently admitted in the hospital with congestive heart failure. It seems she was discharged on spironolactone and potassium supplements. She was found to have significant hyperkalemia on admission. Somewhat sleepy. She is currently getting echocardiogram. Looks comfortable. Troponins were found to be high on admission. Seen by cardiology. No interventions planned. COUNT INCLUDES THE [facility] Medical History Acute heart failure with preserved ejection fraction (HFpEF) Anxiety and depression Atherosclerosis of coronary artery of [place] heart without angina pectoris Chronic diastolic (congestive) heart failure Chronic respiratory failure Chronic systolic (congestive) heart failure Debility Decubitus ulcer of coccygeal region, stage 3 Depression Diverticulosis Essential hypertension Fall GERD (gastroesophageal reflux disease) Gout History of deep venous thrombosis History of pulmonary embolism History of ST elevation myocardial infarction (STEMI) (04/2013) Hyperlipemia Hypoglycemia due to type 2 diabetes mellitus Hypothyroidism Impaired mobility Insulin dependent diabetes mellitus Morbid obesity Non-ischemic cardiomyopathy Nonrheumatic aortic (valve) stenosis Obstructive sleep apnea Osteoarthritis Right bundle branch block (RBBB) 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, stage 2 Type 2 diabetes mellitus with skin complication, without long-term current use of insulin Type II diabetes mellitus Home Medications albuterol sulfate 2.5 mg INHALATION TID 06/05/19 [History Last Taken 01/29/21] aspirin 81 mg PO DAILY@0800 06/05/19 [History Last Taken 01/29/21] colchicine 0.6 mg PO PRN PRN 06/05/19 [History Last Taken Unknown] folic acid 1 mg PO DAILY 06/05/19 [History Last Taken 01/29/21] isosorbide mononitrate 60 mg PO BID 06/05/19 [History Last Taken 01/29/21] levothyroxine 75 mcg PO DAILY 06/05/19 [History Last Taken 01/29/21] metoprolol succinate 25 mg PO DAILY 06/05/19 [History Last Taken 01/29/21] nitroglycerin 0.4 mg SUBLINGUAL Q5M PRN 06/05/19 [History Last Taken Unknown] omeprazole 40 mg PO DAILY 06/05/19 [History Last Taken 01/29/21] polyethylene glycol 3350 17 g PO DAILY 06/05/19 [History Last Taken 01/29/21] simvastatin 20 mg PO QHS 06/05/19 [History Last Taken 01/29/21] methylcellulose (laxative) 850 g PO DAILY 06/29/19 [History Last Taken 01/29/21] allopurinol 300 mg tablet 300 mg PO DAILY tab 09/19/20 [History Last Taken 01/29/21] fluoxetine 40 mg capsule 40 cap PO DAILY 09/19/20 [History Last Taken 01/29/21] guaifenesin 600 mg tablet, extended release 12 hr 600 mg PO BID PRN 09/19/20 [History Last Taken 01/29/21] conjugated estrogens 0.625 mg VAGINAL MOWEFR 01/30/21 [History Last Taken 01/27/21] montelukast 10 mg PO DAILY 01/30/21 [History Last Taken 01/29/21] nystatin [Nystop] 1 applic TOPICAL BID 02/04/21 [History Last Taken Unknown] potassium chloride 40 meq PO BID 02/04/21 [History Last Taken Unknown] acetaminophen 1,000 mg PO Q6H PRN PRN tablet 02/16/21 [Rx Last Taken Unknown] fluticasone propionate 2 spray NASAL DAILY #1 02/16/21 [Rx Last Taken Unknown] metformin 500 mg PO BID #60 tablet 02/16/21 [Rx Last Taken Unknown] spironolactone 25 mg PO DAILY #30 tablet 02/16/21 [Rx Last Taken Unknown] menthol-zinc oxide 1 applic TOPICAL BID 12/29/21 [History Last Taken Unknown] furosemide [Lasix] 40 mg PO BID 30 Days #60 tab 12/30/21 [Rx Last Taken Unknown] Allergy/AdvReac Type Severity Reaction Status Date / Time Iodinated Contrast Media AdvReac Hives Verified 01/01/22 02:02 [CONTRASTS] Family History Mother Heart disease Surgical History H/O coronary artery bypass surgery (01/08/05) History of bilateral knee replacement History of cholecystectomy History of colectomy History of coronary artery stent placement (08/02/15) History of herniorrhaphy Social History (Updated 01/01/22 @ 05:19 by Salma Maldonado) household members: none housing: house Smoking Status: Former smoker substance use type: does not use ROS ROS Narrative Negative except above Physical Exam Narrative no obvious distress no pallor no icterus no JVD s1s2 no murmurs lungs clear abdomen soft no organomegaly no edema no cyanosis Lab / Micro Data Result Diagrams: 01/01/22 08:05 01/01/22 08:05 Labs: Laboratory Results - last 24 hr 01/01/22 02:00: WBC 11.2 H, RBC 3.66 L, Hgb 9.5 L, Hct 30.8 L, MCV 84.2, MCH 26.0 L, MCHC 30.8 L, RDW Std Deviation 55.8 H, RDW Coeff of Oscar 18.6 H, Plt Count 285, MPV 11.1, Immature Gran % (Auto) 0.500, Neut % (Auto) 84.6 H, Lymph % (Auto) 4.4 L, [place] % (Auto) 10.1 H, Eos % (Auto) 0.1, Baso % (Auto) 0.3, Absolute Neuts (auto) 9.5 H, Absolute Lymphs (auto) 0.49 L, Nucleated RBC % 1.0, Anisocytosis 1+ 01/01/22 02:00: Sodium 130 L, Potassium 6.6 H*, Chloride 101, Carbon Dioxide 18.0 L, Anion Gap 11, BUN 80 H, Creatinine 1.85 H, Estim Creat Clear Calc 20.06, Est GFR (MDRD) Af Amer 34 L, Est GFR (MDRD) Non-Af 28 L, BUN/Creatinine Ratio 43.2 H, Glucose 196 H, Calcium 9.3, Troponin I High Sens 393 H* 01/01/22 02:00: B-Natriuretic Peptide 2319.0 H 01/01/22 04:45: Magnesium 2.3, Troponin I High Sens 353 H* 01/01/22 08:05: WBC 11.9 H, RBC 3.75 L, Hgb 9.7 L, Hct 31.2 L, MCV 83.2, MCH 25.9 L, MCHC 31.1 L, RDW Std Deviation 55.6 H, RDW Coeff of Oscar 18.6 H, Plt Count 277, MPV 10.9, Immature Gran % (Auto) 0.500, Neut % (Auto) 82.0 H, Lymph % (Auto) 4.1 L, [place] % (Auto) 13.1 H, Eos % (Auto) 0.0, Baso % (Auto) 0.3, Absolute Neuts (auto) 9.8 H, Absolute Lymphs (auto) 0.49 L, Nucleated RBC % 0.9, Diff Path Review February01/01/22 08:05: PT 17.9 H, INR 1.6 01/01/22 08:05: Sodium 130 L, Potassium 6.5 H*, Chloride 103, Carbon Dioxide 19.0 L, Anion Gap 8, BUN 79 H, Creatinine 1.74 H, Estim Creat Clear Calc 21.33, Est GFR (MDRD) Af Amer 36 L, Est GFR (MDRD) Non-Af 30 L, BUN/Creatinine Ratio 45.4 H, Glucose 137 H, Calcium 10.0, Magnesium 2.4 01/01/22 08:05: Troponin I High Sens 300 H* Radiology Impression Chest X-Ray 01/01/22 01:54 IMPRESSION: Stable exam, likely chronic changes of the lungs. Electronically Signed: Israel Ramey DO at 2:24 EST ,
[2022-01-01] MEDS: 0.9% Saline Lock 10 ML Syringe IV (11:57)
[2022-01-01] MEDS: Sodium Bicarbonate 8.4% 50 ML Syringe 50 MEQ IV (11:58)
--- NOTE | 2022-01-01 12:10 | CASEMGMT ---
REGGIE QUEVEDO Face to Face with patient for initial transition planning/care coordination assessment. REGGIE QUEVEDO introduced self and role at [facility]. Patient lying in bed, alert and oriented. Patient willing to participate in assessment and is able to answer all questions appropriately. Care providers, pharmacy, and demographics verified. Patient wishes to discharge home, with resumption of HHC with [facility]. Patient states he has no further needs or concerns at this time. Patient gave permission for REGGIE QUEVEDO to call daughter Steff to discuss discharge planning. REGGIE QUEVEDO called Steff, per Steff plan is for patient to discharge home with [facility]. Steff interested in palliative care. REGGIE QUEVEDO updated hospitalist and order received for palliative consult. REGGIE QUEVEDO sent referral to [facility] palliative. CM to follow for discharge planning needs that may arise. PCP: [facility] Specialists: Med, ginning operator; Methods Specialist Engineer in [place] Preferred Pharmacy: [facility] Insurance: [facility], Physician [place] Prescription Benefit: yes Living Will/HPOA: yes, daughter Steff Betancourt LNOK: daughters, son Living Arrangements: Patient lives alone in a single story home with 1 step and grab bar to enter the home. Patient states she is independent for toileting and dressing, daughter assists with bathing, cleaning, laundry, and meal prep. Transportation: daughter DME/HHC: patient states she has shower chair, grab bars, walker, wheelchair, cpap, and home oxygen concentrator at night at 2lpm. Disposition Plan: Patient to discharge home with resumption of HHC, family support, and follow-up plans in place. Brenda SOLARES, RN, CM
--- NOTE | 2022-01-01 12:55 | PCM.PN.HOSP ---
Subjective Subjective This 81-year-old female admitted for chest pain and shortness of breath in ICU from ER. She has a dry cough but no fever or chills. She had one episode of nausea and vomiting. History of chronic HFpEF , coronary artery disease, two-vessel CABG, cardiac stents aortic stenosis, dyslipidemia, aortic stenosis. Was recently hospitalized for CHF exacerbation and discharged on 12/30 on Lasix 40 mg twice daily. She also found hyperkalemic she is on Lasix, spironolactone and potassium supplement. Objective Data Objective Data Vital Signs: Vital Signs Temp Pulse Resp BP Pulse Ox 98.2 F 88 21 H 102/56 L 95 01/01/22 07:01 01/01/22 07:28 01/01/22 07:28 01/01/22 07:01 01/01/22 07:27 Oxygen Flow Rate (L/min) 2 Oxygen Delivery Method Nasal Cannula Weight: 176 lb 9.444 oz Body Mass Index (BMI) 30.7 Intake & Output: Intake and Output for Last 24 Hours 12/30/21 12/31/21 01/01/22 23:59 23:59 23:59 Intake Total 890 / 890 Output Total 170 / 170 Balance 720 / 720 Lab / Micro Data Result Diagrams: 01/01/22 08:05 01/01/22 08:05 Labs: Laboratory Results - last 24 hr 01/01/22 02:00: WBC 11.2 H, RBC 3.66 L, Hgb 9.5 L, Hct 30.8 L, MCV 84.2, MCH 26.0 L, MCHC 30.8 L, RDW Std Deviation 55.8 H, RDW Coeff of Oscar 18.6 H, Plt Count 285, MPV 11.1, Immature Gran % (Auto) 0.500, Neut % (Auto) 84.6 H, Lymph % (Auto) 4.4 L, [place] % (Auto) 10.1 H, Eos % (Auto) 0.1, Baso % (Auto) 0.3, Absolute Neuts (auto) 9.5 H, Absolute Lymphs (auto) 0.49 L, Nucleated RBC % 1.0, Anisocytosis 1+ 01/01/22 02:00: Sodium 130 L, Potassium 6.6 H*, Chloride 101, Carbon Dioxide 18.0 L, Anion Gap 11, BUN 80 H, Creatinine 1.85 H, Estim Creat Clear Calc 20.06, Est GFR (MDRD) Af Amer 34 L, Est GFR (MDRD) Non-Af 28 L, BUN/Creatinine Ratio 43.2 H, Glucose 196 H, Calcium 9.3, Troponin I High Sens 393 H* 01/01/22 02:00: B-Natriuretic Peptide 2319.0 H 01/01/22 04:45: Magnesium 2.3, Troponin I High Sens 353 H* Radiography Diagnostic Testing: Radiology Impression Chest X-Ray 01/01/22 01:54 IMPRESSION: Stable exam, likely chronic changes of the lungs. Electronically Signed: Israel Ramey at 2:24 EST Reading Location ID and State: [facility] / [place] Tel , Service support , Physical Exam Narrative General: Alert, Oriented x3, Cooperative HEENT: Atraumatic, PERRLA, EOMI, Normocephalic Oral: No Gingival or Mucosal Lesions/ Ulcerations Neck: Supple, No JVD, Negative Carotid Bruits Lungs: Air entry diminished in bilateral lung bases. Bilateral coarse crepitations in bilateral lung bases Cardiovascular: Regular rate, Regular Rhythm, Normal S1, Normal S2, systolic murmur LLSB Abdomen: Bowel Sounds Present, Soft, Non Tender, Non-Distended : No renal angle tenderness. No suprapubic tenderness. Extremities: No edema, Capillary Refill Less than 3 Seconds Skin: No rashes, No breakdown Musculoskeletal: No Tenderness to Palpation of Joints or Extremities Neurological: Cranial nerves II-XII grossly intact, DTR 2+/4 and Symmetrical, Neuro grossly intact Psych/Mental Status: Normal Affect, Appropriate Assessment & Plan Assessment/Plan (1) Chest pain: (2) Elevated troponin I level: (3) Fatigue: (4) Acute decompensated heart failure: PLAN: 1. Atypical chest pain, non-STEMI: Patient is being admitted in ICU. Patient had elevated troponin during previous admission on 12/29. This time first high-sensitivity troponin 393 and subsequent trending down. Patient seen by air valve mechanic. Currently chest pain has resolved. Shortness of breath is improved. Detailed history for difficult because of severe hearing impairment. 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 In July 2015 she had PCI with BMS to ostial and proximal RCA. Intake Clerk recommended conservative medical therapy. 2. Acute on chronic systolic and diastolic combined heart failure: Patient does not have leg swelling but has coarse crepitation in lung bases along with elevated BNP. Recent echo in 2018 shows EF 35 to 40% and moderate aortic stenosis. 2D echo done today shows EF 25%, moderate to severe global hypokinesis of LV, stage III diastolic dysfunction moderate aortic valve calcification, mean AV gradient 16 mmHg. Compared to previous echo EF has worsened. 3. 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 Patient is currently n.p.o. therefore no Kayexalate. Seen by transmission specialist. Hyperkalemia due to spironolactone and potassium supplement. Patient has Wilcox catheter in draining clear urine. 4. Right Heel wound and sacral ulcer, present on admission: She follows wound center last seen on 12/14/2021. Her right heel grew Pseudomonas was completed Cipro for 7 days. After that she also was on Augmentin. Leukocytosis improving. Wound care consult 5. Diabetes mellitus type 2: Hold Metformin and oral hypoglycemic agents. Accu-Cheks and cover regimen of sliding scale. 4. Hypothyroidism hold oral Synthroid. As he is n.p.o. 5. GERD on PPI 6. Anxiety/depression. Overall Prozac on hold. DVT: Heparin 5000 subcutaneous every 8 hourly. Discontinue if platelet count drops less than 50,000 or hemoglobin less than 8 g% Total time of the visit including total time spent in counseling or coordination of care, (more than 50% of the total time, spent in obtaining medical information from nurses and other ancillary care providers,explaining to the patient about labs, imaging, diagnosis and management), calling and discussion with transmission specialist, air valve mechanic, review of labs and imaging is 40 minutes. Charges/Coding Procedures Hospitalists Procedures: [id number] Prolonged InPt Service; first hour
[2022-01-01 13:12] LABS: Potassium 5.1 mmol/L (3.5-5.1)
--- NOTE | 2022-01-01 13:58 | WOUNDNOTE ---
wound photo: right lateral heel
--- NOTE | 2022-01-01 13:59 | WOUNDNOTE ---
wound photo: ryan
--- NOTE | 2022-01-01 14:44 | NURSING ---
report called to REGGIE Gee in PCU at this time
[2022-01-01 15:55] LABS: Pathologist Review Reviewed
[2022-01-01] MEDS: Atorvastatin Calcium 10 MG Tablet PO (20:33)
[2022-01-02] VITALS (24 sets, daily range): BP systolic 97–121; BP diastolic 53–75; PULSE 91–130; RESP 16–20; TEMP 36.1–36.6; O2SAT 90–100; BMI 29.0
[2022-01-02] MEDS: Metoprolol Tartrate 5 MG/5 ML Vial 2.5 MG IV ×4 (00:02→20:01)
[2022-01-02 06:07] LABS: Absolute Lymphocyte Count 0.47 X10^3/uL (0.83-4.51); Absolute Neutrophil Count 6.3 X10^3/uL (2.0-7.7); Basophil# 0.05 X10^3/uL; Basophil% 0.6 % (0-1); Eosinophil# 0.03 X10^3/uL; Eosinophils% 0.4 % (0-5); Hemoglobin 9.3 g/dL (12.0-15.0); Lymphocyte # 0.47 X10^3/ul (0.83-4.51); Lymphocyte % 5.8 % (19-41); Mean Corpuscular Hgb 25.1 pg (27.0-32.0); Mean Corpuscular Volume 80.9 fL (81-99); Mean Platelet Vol. 10.6 fl (6.2-12.0); Monocyte# 1.14 X10^3/uL; Monocyte% 14.1 % (0-10); NRBC Flagged by Analyzer 1.4 % (0-5); Neutrophil # 6.33 X10^3/uL (2.7-7.7); Neutrophil % 78.6 % (47-70); POSITIVE DIFFERENTIAL YES; Platelet Count 277 K/mm3 (150-450); RBC Distribution Width CV 18.6 % (11.6-14.6); RBC Distribution Width SD 54.4 fl (35.1-43.9); Red Blood Count 3.71 M/mm3 (4.2-5.4); White Blood Count 8.1 K/mm3 (4.4-11.0)
[2022-01-02 06:10] LABS: Differential Indicated SCAN CRITERIA MET
[2022-01-02 06:21] LABS: Anisocytosis 2+
[2022-01-02] MEDS: Heparin Injection (Vial) 5,000 UNIT/ML VIAL 5000 UNIT SC ×2 (06:24→22:08)
[2022-01-02 06:29] LABS: Anion Gap 11 (5-15); BUN 80 mg/dL (7-18); BUN/Creat Ratio 48.5 RATIO (10-20); Calcium,Total 9.2 mg/dL (8.5-10.1); Chloride 103 mmol/L (98-107); Creatinine, Serum 1.65 mg/dL (0.55-1.02); EST Glomerular Filtration Rate 32 mL/min (>60); Est Glom Filt Rate - Afr Amer 38 mL/min (>60); Estimated Creatinine Clearance 22.49 ml/min; Glucose 156 mg/dL (74-106); Potassium 4.5 mmol/L (3.5-5.1); Sodium Level 136 mmol/L (136-145)
[2022-01-02] MEDS: Albuterol 2.5 MG/3 ML VIAL.NEB. INHALATION ×3 (07:24→22:35)
[2022-01-02] MEDS: 0.9% Saline Lock 10 ML Syringe IV ×2 (09:19→11:12)
[2022-01-02] MEDS: Furosemide 20 MG/2 ML VIAL IV ×2 (09:19→20:02)
[2022-01-02] MEDS: Fluticasone 0.05% 1 SPRAY NASAL.SRY 2 SPRAY NASAL (11:11)
--- NOTE | 2022-01-02 11:15 | PN.RENAL_ITS ---
Subjective Subjective no new events Objective Data Objective Data Vital Signs: Vital Signs Temp Pulse Resp BP Pulse Ox 97.9 F 130 H 18 121/75 H 95 01/02/22 11:10 01/02/22 11:13 01/02/22 11:10 01/02/22 11:10 01/02/22 11:10 Oxygen Flow Rate (L/min) 2 Oxygen Delivery Method Room Air Weight: 80.4 kg Body Mass Index (BMI) 30.7 Intake & Output: Intake and Output for Last 24 Hours 12/31/21 01/01/22 01/02/22 23:59 23:59 23:59 Intake Total 1250 / 1250 Output Total 1300 / 1750 600 / 600 Balance -50 / -500 -600 / -600 Lab / Micro Data Result Diagrams: 01/02/22 05:36 01/02/22 05:36 Labs: Laboratory Results - last 24 hr 01/01/22 08:05: Diff Path Review Reviewed 01/01/22 12:50: Potassium 5.1 01/02/22 05:36: WBC 8.1, RBC 3.71 L, Hgb 9.3 L, Hct 30.0 L, MCV 80.9 L, MCH 25.1 L, MCHC 31.0 L, RDW Std Deviation 54.4 H, RDW Coeff of Oscar 18.6 H, Plt Count 277, MPV 10.6, Immature Gran % (Auto) 0.500, Neut % (Auto) 78.6 H, Lymph % (Auto) 5.8 L, [place] % (Auto) 14.1 H, Eos % (Auto) 0.4, Baso % (Auto) 0.6, Absolute Neuts (auto) 6.3, Absolute Lymphs (auto) 0.47 L, Nucleated RBC % 1.4, Anisocytosis 2+ 01/02/22 05:36: Sodium 136, Potassium 4.5, Chloride 103, Carbon Dioxide 22.0, Anion Gap 11, BUN 80 H, Creatinine 1.65 H, Estim Creat Clear Calc 22.49, Est GFR (MDRD) Af Amer 38 L, Est GFR (MDRD) Non-Af 32 L, BUN/Creatinine Ratio 48.5 H, Glucose 156 H, Calcium 9.2 Radiography Diagnostic Testing: Radiology Impression Echocardiogram 01/01/22 08:46 Interpretation Summary Normal LV size. The estimated ejection fraction is 25 %. There is moderate to severe global hypokinesis of the left ventricle. Stage 3 diastolic dysfunction. Moderate focal aortic valve calcification. Mean aortic valve gradient 16 mmHg. Compared to previous study, the left ventricular systolic function has worsened.. ____ Ordering Physician: Rolf Felix Referring Physician: Rommel Arango Performed By: Siobhan Slade, RADHA, RVT Physical Exam Narrative no obvious distress no pallor no icterus no JVD s1s2 no murmurs lungs clear abdomen soft no organomegaly no edema no cyanosis Assessment & Plan Assessment/Plan (1) Acute heart failure with preserved ejection fraction (HFpEF): (2) Hyperkalemia: PLAN: K better, tolerating lasix (3) JULISSA (acute kidney injury): PLAN: She was recently admitted with congestive heart failure. Serum creatinine fluctuates between 1.3-1.5 with several variations. Currently creatinine is around 1.6-1.8. She was sent home on spironolactone, potassium supplements which is likely cause of hyperkalemia. cr stable
--- NOTE | 2022-01-02 11:39 | PN.HOSP_ITS ---
Subjective Subjective Seen and examined. Hospital course, dysphagia and other medical diagnoses discussed with patient daughter near the bedside. Objective Data Objective Data Vital Signs: Vital Signs Temp Pulse Resp BP Pulse Ox 97.9 F 130 H 18 121/75 H 95 01/02/22 11:10 01/02/22 11:13 01/02/22 11:10 01/02/22 11:10 01/02/22 11:10 Oxygen Flow Rate (L/min) 2 Oxygen Delivery Method Room Air Weight: 177 lb 4.026 oz Body Mass Index (BMI) 30.7 Intake & Output: Intake and Output for Last 24 Hours 12/31/21 01/01/22 01/02/22 23:59 23:59 23:59 Intake Total 1250 / 1250 Output Total 1300 / 1750 600 / 600 Balance -50 / -500 -600 / -600 Lab / Micro Data Result Diagrams: 01/02/22 05:36 01/02/22 05:36 Labs: Laboratory Results - last 24 hr 01/01/22 08:05: Diff Path Review Reviewed 01/01/22 12:50: Potassium 5.1 01/02/22 05:36: WBC 8.1, RBC 3.71 L, Hgb 9.3 L, Hct 30.0 L, MCV 80.9 L, MCH 25.1 L, MCHC 31.0 L, RDW Std Deviation 54.4 H, RDW Coeff of Oscar 18.6 H, Plt Count 277, MPV 10.6, Immature Gran % (Auto) 0.500, Neut % (Auto) 78.6 H, Lymph % (Auto) 5.8 L, [place] % (Auto) 14.1 H, Eos % (Auto) 0.4, Baso % (Auto) 0.6, Absolute Neuts (auto) 6.3, Absolute Lymphs (auto) 0.47 L, Nucleated RBC % 1.4, Anisocytosis 2+ 01/02/22 05:36: Sodium 136, Potassium 4.5, Chloride 103, Carbon Dioxide 22.0, Anion Gap 11, BUN 80 H, Creatinine 1.65 H, Estim Creat Clear Calc 22.49, Est GFR (MDRD) Af Amer 38 L, Est GFR (MDRD) Non-Af 32 L, BUN/Creatinine Ratio 48.5 H, Glucose 156 H, Calcium 9.2 Radiography Diagnostic Testing: Radiology Impression Echocardiogram 01/01/22 08:46 Interpretation Summary Normal LV size. The estimated ejection fraction is 25 %. There is moderate to severe global hypokinesis of the left ventricle. Stage 3 diastolic dysfunction. Moderate focal aortic valve calcification. Mean aortic valve gradient 16 mmHg. Compared to previous study, the left ventricular systolic function has worsened.. Ordering Physician: Rolf Felix Referring Physician: Rommel Arango Performed By: Siobhan Slade, RDCS, RVT Physical Exam Narrative Seen and examined. On blast hole driller sinus rhythm with multiple PVCs. Patient has history of cervical/upper esophageal stenosis/stricture and had esophageal dilatation in the past. General: Alert, Oriented x3, Cooperative HEENT: Atraumatic, PERRLA, EOMI, Normocephalic Oral: No Gingival or Mucosal Lesions/ Ulcerations Neck: Supple, No JVD, Negative Carotid Bruits Lungs: Air entry diminished in bilateral lung bases. Bilateral lung cr epitations improving. Cardiovascular: Sinus rhythm with PVCs, Normal S1, Normal S2, systolic murmur LLSB Abdomen: Bowel Sounds Present, Soft, Non Tender, Non-Distended : No renal angle tenderness. No suprapubic tenderness. Extremities: No edema, Capillary Refill Less than 3 Seconds Skin: No rashes, No breakdown Musculoskeletal: No Tenderness to Palpation of Joints or Extremities Neurological: Cranial nerves II-XII grossly intact, DTR 2+/4 and Symmetrical, Neuro grossly intact Psych/Mental Status: Flat affect. Assessment & Plan Assessment/Plan (1) Chest pain: (2) Elevated troponin I level: (3) Fatigue: (4) Acute decompensated heart failure: PLAN: 1. Atypical chest pain, non-STEMI: Patient is being admitted in ICU. Patient had elevated troponin during previous admission on 3/5. This time first high-sensitivity troponin 393 and subsequent trending down. Patient seen by technical sourcing recruiter. Currently chest pain has resolved. Shortness of breath is improved. Detailed history for difficult because of severe hearing impairment. 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 In July 2015 she had PCI with BMS to ostial and proximal RCA. [employer] Portal Developer recommended conservative medical therapy. 01/02 no further chest pain or shortness of breath. 2. Acute on chronic systolic and diastolic combined heart failure: Patient does not have leg swelling but has coarse crepitation in lung bases along with elevated BNP. Recent echo in 2018 shows EF 35 to 40% and moderate aortic stenosis. 2D echo done on 01/01 shows EF 25%, moderate to severe global hypokinesis of LV, stage III diastolic dysfunction moderate aortic valve calcification, mean AV gradient 16 mmHg. Compared to previous echo EF has worsened. 01/02 on Lasix 20 mg IV twice daily. Normocytic normochromic anemia H&H is stable. Platelet count normal. 3. 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 Patient is currently n.p.o. therefore no Kayexalate. Seen by engineering consultant. Hyperkalemia due to spironolactone and potassium supplement. Patient has Wilcox catheter in draining clear urine. 01/02: Patient potassium is normal. Creatinine is improving. 4. Right Heel wound and sacral ulcer, present on admission: She follows wound center last seen on 12/14/2021. Her right heel grew Pseudomonas was completed Cipro for 7 days. After that she also was on Augmentin. Leukocytosis improving. Wound care consult 01/02: Wound nurse note reviewed. Patient had healed right heel pressure injury. There is thin callus noted. No open area. Sacrococcygeal region pressure injury 0.3 x 0.4 x 0.6 cm stage III with red granulation pink tissue. Dressing done by wound nurse. 5. Diabetes mellitus type 2: Hold Metformin and oral hypoglycemic agents. Accu-Cheks and cover regimen of sliding scale. Esophageal dysphagia with possible oropharyngeal dysphagia: Discussed with GI. Will evaluate the patient for possible EGD with esophageal dilatation if needed. I also talked regarding PEG tube with the patient's daughter and said risk of aspiration will be similar after PEG tube. Earlier patient was planned for barium esophagogram which was canceled because of the risk of aspiration. Discussed with the speech therapist in detail and plan for modified barium swallow/videofluoroscopy. 4. Hypothyroidism hold oral Synthroid. Patient is n.p.o. 5. GERD on PPI 6. Anxiety/depression. Overall Prozac on hold. DVT: Heparin 5000 subcutaneous every 8 hourly. Discontinue if platelet count drops less than 50,000 or hemoglobin less than 8 g% Total time of the visit including total time spent in counseling or coordination of care, (more than 50% of the total time, spent in obtaining medical info rmation from nurses and other ancillary care providers,explaining to the patient and her daughter near the bedside about labs, imaging, diagnosis and management), calling and discussion with engineering consultant, technical sourcing recruiter, GI, wound nurse, review of labs and imaging is 40 minutes. Charges/Coding Visit Charges Inpatient E&M: 18470 Subs Hosp L3
[2022-01-02] MEDS: Ondansetron 4 MG/2 ML Vial IV (12:14)
[2022-01-02 12:51] LABS: Thyroid Stim Hormone (TSH) 0.72 uIU/mL (0.358-3.74)
[2022-01-02 13:02] LABS: Hemoglobin A1c 6.6 % (3.8-5.6)
[2022-01-02 13:24] LABS: Partial Thromboplast Time 30.2 Seconds (24.1-36.2)
--- NOTE | 2022-01-02 14:10 | CON.PCM.PA_ITS ---
Assessment & Plan Assessment/Plan (1) Acute decompensated heart failure: (2) Chronic respiratory failure: (3) Dysphagia: (4) Impaired mobility: PLAN: Cathy Hadley is an 81-year-old female who was admitted to [facility] for evaded troponins and an NSTEMI secondary to decompensated heart failure. She is also been diagnosed with hyperkalemia and JULISSA on CKD stage IV secondary to cardiorenal syndrome. She has been having extensive problems with dysphagia and has required esophageal dilatation in the past. All of these problems have been contributing to recurrent hospitalizations, functional decline at home, and to general debility. Patient states that her quality life has been quite poor, and that she does not want to live like this anymore. She is scheduled to have an EGD at 530 this evening, which will likely assist patient and family to decide her healthcare trajectory. Lengthy ad mills care planning discussion was held yesterday, and patient elected to be a DNRCC without CPR and without intubation. The patient does still live alone in a single-story home and is partially dep endent in her ADLs. She is able to perform hygiene activities and dressing on her own, but family provides meals, does shopping, and completes heavier household work. They do also assist her in bathing. She reports a decreased appetite recently, partially due to her worsening dysphagia. She is able to transfer and ambulate independently with the use of a wheeled walker, but she has had at least one major fall at home without sustaining significant injury. Extensive review of current hospitalization, medication diagnoses, and prognosis was discussed with patient and her daughter at the bedside, Shawna. [facility]; another daughter, Steff, is the [facility]CP[facility], but she is [place] out of the [place]. Palliative care in the home was discussed along with limitations and expectations for such. A discussion about hospice care also took place, including limitations and expectations for that level of service in the home. Shawna states that she is a home health aide, and has a good understanding of hospice services. At this point in time, Cathy appears to have a limited prognosis and would likely qualify for hospice services whether or not family decides and to pursue the placement of a PEG tube given her severe cardiac disease, ongoing wound care, debility, shortness of breath, worsening dysphagia with risk for aspiration, risk for falls, advanced age, and chronic conditions that increase her risk of morbidity and mortality. 1. Shortness of breath secondary to acute on chronic cardiac issues including heart failure, PAL, chronic respiratory failure, and CAD. -Continue on diuretics as recommended by enlisted aircrew/aerial observer/gunner -She may potentially be a candidate for low-dose opioid therapy, such as Roxanol to assist with decreasing work of breathing; will assess opioid risk as an outpatient -Continue on home oxygen therapy at bedtime and CPAP therapy as recommended 2. Dysphagia. -Await findings of EGD -Continue n.p.o. status -Follow recommendations of speech therapy 3. Discharge planning: pending EGD findings and subsequent treatment options. Patient and family wish her to return home with [facility] or home with hospice. Thank you for the opportunity to participate in this patient's care. Please do not hesitate to contact [facility] with any further questions or concerns. Palliative direct line is [phone]. We will follow and have the liaison contact the significant other following his hospital discharge to set up home appointment. If patient/family would like to elect hospice services, please contact [facility] at [phone] for referral. Greater than 50% of qncd-bm-[id number] visit was dedicated to education and counseling about palliative care services, medications, comorbid conditions, and potential assistance with management and care coordination moving forward. We also discussed hospice services and limitations. Start time: 1330 Stop time: 1457 HPI Consult Data Date of Consult: 01/02/22 HPI Narrative HPI Narrative: CATHY FRIEDMAN, is a 81 F who presented to [facility] ED via EMS due to shortness of breath and chest pain. There was initial concern for STEMI, but this was ruled out and patient was noted to have a NSTEMI, though her troponins were trending down from her observation stay over the weekend, so the timing is somewhat unclear. It sounds like her cardiac damage are secondary to acute decompensated combined heart failure she is also noted to have JULISSA on CKD stage IV with hyperkalemia: Her initial potassium was 6.0 which resolved with calcium gluconate, albuterol, insulin, and D5W. Her renal function has slowly been improving. Patient has a longstanding cardiac history and had a two-vessel CABG in December 2004, and PCI x2 in 2014. Wood Barker at this admission has recommended conservative medical therapy, tho [facility] there was a recommendation for outpatient stress test during her observation stay over the weekend. Nephrology has also been consulted for renal issues. Patient has been having increased swallowing difficulty at home, including having to take her pills in applesauce and modify many food textures at home. She is has had to have esophageal dilatation in the past, and GI consult is pending. She is to have an EGD at 530 this evening. However, patient and daughter at the bedside both verbalized no intention of pursuing a PEG tube for the purpose of feeding. She is on a PPI for her GERD. Cathy has multiple other comorbid conditions including ongoing wound care, specifically to her sacrum, likely secondary to poorly controlled diabetes type 2. Palliative medicine has been consulted at the request of patient's daughter and her ongoing functional decline, recurrent hospitalizations, and severity of her symptoms to assist with symptom management and care coordination in the home se tting. [facility] Medical History (Updated 01/02/22 @ 14:33 by KERLINE Cullen) Acute heart failure with preserved ejection fraction (HFpEF) Anxiety and depression Atherosclerosis of coronary artery of [place] heart without angina pectoris Chronic diastolic (congestive) heart failure Chronic respiratory failure Chronic systolic (congestive) heart failure Debility Decubitus ulcer of coccygeal region, stage 3 Depression Diverticulosis Essential hypertension Fall GERD (gastroesophageal reflux disease) Gout History of deep venous thrombosis History of pulmonary embolism History of ST elevation myocardial infarction (STEMI) (04/2013) Hyperlipemia Hypoglycemia due to type 2 diabetes mellitus Hypothyroidism Impaired mobility Insulin dependent diabetes mellitus Morbid obesity Non-ischemic cardiomyopathy Nonrheumatic aortic (valve) stenosis Obstructive sleep apnea Osteoarthritis Right bundle branch block (RBBB) 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, stage 2 Type 2 diabetes mellitus with skin complication, without long-term current use of insulin Type II diabetes mellitus Home Medications albuterol sulfate 2.5 mg INHALATION TID 06/05/19 [History Last Taken 01/29/21] aspirin 81 mg PO DAILY@0800 06/05/19 [History Last Taken 01/29/21] colchicine 0.6 mg PO PRN PRN 06/05/19 [History Last Taken Unknown] folic acid 1 mg PO DAILY 06/05/19 [History Last Taken 01/29/21] isosorbide mononitrate 60 mg PO BID 06/05/19 [History Last Taken 01/29/21] levothyroxine 75 mcg PO DAILY 06/05/19 [History Last Taken 01/29/21] metoprolol succinate 25 mg PO DAILY 06/05/19 [History Last Taken 01/29/21] nitroglycerin 0.4 mg SUBLINGUAL Q5M PRN 06/05/19 [History Last Taken Unknown] omeprazole 40 mg PO DAILY 06/05/19 [History Last Taken 01/29/21] polyethylene glycol 3350 17 g PO DAILY 06/05/19 [History Last Taken 01/29/21] simvastatin 20 mg PO QHS 06/05/19 [History Last Taken 01/29/21] methylcellulose (laxative) 850 g PO DAILY 06/29/19 [History Last Taken 01/29/21] allopurinol 300 mg tablet 300 mg PO DAILY tab 09/19/20 [History Last Taken 01/29/21] fluoxetine 40 mg capsule 40 cap PO DAILY 09/19/20 [History Last Taken 01/29/21] guaifenesin 600 mg tablet, extended release 12 hr 600 mg PO BID PRN 09/19/20 [History Last Taken 01/29/21] conjugated estrogens 0.625 mg VAGINAL MOWEFR 01/30/21 [History Last Taken 01/27/21] montelukast 10 mg PO DAILY 01/30/21 [History Last Taken 01/29/21] nystatin [Nystop] 1 applic TOPICAL BID 02/04/21 [History Last Taken Unknown] potassium chloride 40 meq PO BID 02/04/21 [History Last Taken Unknown] acetaminophen 1,000 mg PO Q6H PRN PRN tablet 02/16/21 [Rx Last Taken Unknown] fluticasone propionate 2 spray NASAL DAILY #1 02/16/21 [Rx Last Taken Unknown] metformin 500 mg PO BID #60 tablet 02/16/21 [Rx Last Taken Unknown] spironolactone 25 mg PO DAILY #30 tablet 02/16/21 [Rx Last Taken Unknown] menthol-zinc oxide 1 applic TOPICAL BID 12/29/21 [History Last Taken Unknown] furosemide [Lasix] 40 mg PO BID 30 Days #60 tab 12/30/21 [Rx Last Taken Unknown] Allergy/AdvReac Type Severity Reaction Status Date / Time Iodinated Contrast Media AdvReac Hives Verified 01/01/22 02:02 [CONTRASTS] Family History Mother Heart disease Surgical History H/O coronary artery bypass surgery (01/08/05) History of bilateral knee replacement History of cholecystectomy History of colectomy History of coronary artery stent placement (08/02/15) History of herniorrhaphy Social History household members: none housing: house Smoking Status: Former smoker substance use type: does not use ROS Constitutional Constitutional: Reports as per HPI Physical Exam Const alert and oriented x3 General Appearance: cooperative Orientation / Consciousness: awake, oriented to person, oriented to place and oriented to time Exam Limitations: no limitations Nutritional Appearance: overweight HEENT Mouth: oral and palatal mucosa normal Teeth and Gingiva: edentulous Resp normal respiratory effort and No normal air movement Auscultation: wheezes right upper and diminished lung sounds bilateral lower Cardio regular rate, regular rhythm, S1 normal heart sound, S2 normal heart sound and peripheral pulses 2+ throughout GI normal to inspection, nondistended, normoactive bowel sounds, soft to palpation, non-tender and non-distended Bladder / Kidney Exam: catheter in place urethral Skin General Skin Exam: ecchymosis Neuro oriented x3 Speech: speech normal Psych mental status grossly normal, thought process normal, cooperative, affect normal and speech normal Insight: fair Judgement: judgement good
[2022-01-02 15:26] LABS: Bedside Glucose 201 mg/dL (74-106)
--- NOTE | 2022-01-02 17:48 | CON.PCM.GI_ITS ---
HPI Consult Data Date of Consult: 01/02/22 HPI Narrative HPI Narrative: SHAWN FRIEDMAN, is a 81 F who presents with extensive cardiac history, presented with chest discomfort and shortness of breath. All the history of same from the patient's chart and the patient daughter and son who was at the bedside . As the patient is very hard of hearing and does not give a good history. She has a history of prior myocardial infarction underwent bypass surgery in December 2004 with DAVIDSON to LAD and SVG to OM1 10 years later in July 2015 she had a PCI using bare-metal stent to the ostial and proximal RCA. Evidently she was recently here at the [facility] and discharged home and brought back because of symptoms of chest discomfort with a subsequent elevation of cardiac biomarker which is a stable. Also on review of the record patient had acute on chronic systolic and diastolic heart failure with ejection fraction in the range of 35-40 on echocardiogram done in 2018 and moderate aortic stenosis, probably underestimated due to the LV dysfunction. She had a repeat echo cardiogram that showed her ejection fraction had gone down to 25%. Her troponin was up into the 300s and then corrected back to normal with conservative therapy. She is not having any chest pain at this time. Based on her kidney function and her other comorbidities such as Pseudomonas infection of the right heel, obesity, COPD and CHF only conservative therapy was pursued to this point. She also has a history of esophageal dysphagia and underwent esophageal dilation approximately 3 months ago by an outside physician. Her esophageal dysphagia returned 3 months later. The family does not know she had a hiatal hernia, esophageal ring or any autoimmune disease affecting the esophagus. I was consulted due to a failed swallow test and for endoscopic evaluation of her upper GI tract. [facility] Medical History (Updated 01/02/22 @ 17:[address] Sunshine Friend, DO) Acute heart failure with preserved ejection fraction (HFpEF) Anxiety and depression Atherosclerosis of coronary artery of [place] heart without angina pectoris Chronic diastolic (congestive) heart failure Chronic respiratory failure Chronic systolic (congestive) heart failure Debility Decubitus ulcer of coccygeal region, stage 3 Depression Diverticulosis Essential hypertension Fall GERD (gastroesophageal reflux disease) Gout History of deep venous thrombosis History of pulmonary embolism History of ST elevation myocardial infarction (STEMI) (04/2013) Hyperlipemia Hypoglycemia due to type 2 diabetes mellitus Hypothyroidism Impaired mobility Insulin dependent diabetes mellitus Morbid obesity Non-ischemic cardiomyopathy Nonrheumatic aortic (valve) stenosis Obstructive sleep apnea Osteoarthritis Right bundle branch block (RBBB) 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, stage 2 Type 2 diabetes mellitus with skin complication, without long-term current use of insulin Type II diabetes mellitus Home Medications albuterol sulfate 2.5 mg INHALATION TID 06/05/19 [History Last Taken 01/29/21] aspirin 81 mg PO DAILY@0800 06/05/19 [History Last Taken 01/29/21] colchicine 0.6 mg PO PRN PRN 06/05/19 [History Last Taken Unknown] folic acid 1 mg PO DAILY 06/05/19 [History Last Taken 01/29/21] isosorbide mononitrate 60 mg PO BID 06/05/19 [History Last Taken 01/29/21] levothyroxine 75 mcg PO DAILY 06/05/19 [History Last Taken 01/29/21] metoprolol succinate 25 mg PO DAILY 06/05/19 [History Last Taken 01/29/21] nitroglycerin 0.4 mg SUBLINGUAL Q5M PRN 06/05/19 [History Last Taken Unknown] omeprazole 40 mg PO DAILY 06/05/19 [History Last Taken 01/29/21] polyethylene glycol 3350 17 g PO DAILY 06/05/19 [History Last Taken 01/29/21] simvastatin 20 mg PO QHS 06/05/19 [History Last Taken 01/29/21] methylcellulose (laxative) 850 g PO DAILY 06/29/19 [History Last Taken 01/29/21] allopurinol 300 mg tablet 300 mg PO DAILY tab 09/19/20 [History Last Taken 01/29/21] fluoxetine 40 mg capsule 40 cap PO DAILY 09/19/20 [History Last Taken 01/29/21] guaifenesin 600 mg tablet, extended release 12 hr 600 mg PO BID PRN 09/19/20 [History Last Taken 01/29/21] conjugated estrogens 0.625 mg VAGINAL MOWEFR 01/30/21 [History Last Taken 01/27/21] montelukast 10 mg PO DAILY 01/30/21 [History Last Taken 01/29/21] nystatin [Nystop] 1 applic TOPICAL BID 02/04/21 [History Last Taken Unknown] potassium chloride 40 meq PO BID 02/04/21 [History Last Taken Unknown] acetaminophen 1,000 mg PO Q6H PRN PRN tablet 02/16/21 [Rx Last Taken Unknown] fluticasone propionate 2 spray NASAL DAILY #1 02/16/21 [Rx Last Taken Unknown] metformin 500 mg PO BID #60 tablet 02/16/21 [Rx Last Taken Unknown] spironolactone 25 mg PO DAILY #30 tablet 02/16/21 [Rx Last Taken Unknown] menthol-zinc oxide 1 applic TOPICAL BID 12/29/21 [History Last Taken Unknown] furosemide [Lasix] 40 mg PO BID 30 Days #60 tab 12/30/21 [Rx Last Taken Unknown] Allergy/AdvReac Type Severity Reaction Status Date / Time Iodinated Contrast Media AdvReac Hives Verified 01/01/22 02:02 [CONTRASTS] Family History Mother Heart disease Surgical History H/O coronary artery bypass surgery (01/08/05) History of bilateral knee replacement History of cholecystectomy History of colectomy History of coronary artery stent placement (08/02/15) History of herniorrhaphy Social History household members: none housing: house Smoking Status: Former smoker substance use type: does not use ROS Gastrointestinal Gastrointestinal: Reports dysphagia Physical Exam Const alert General Appearance: cooperative Orientation / Consciousness: oriented to person HEENT hearing grossly normal bilaterally Head and Scalp: normal to inspection Face and Sinus: face symmetric Nose: external nose normal Mouth: oral and palatal mucosa normal Eyes conjunctivae normal General Eye: normal appearance of both eyes Neck full ROM General: normal visual inspection Lymph Lymphatic: no lymphadenopathy noted Chest inspection of chest normal and palpation of chest normal Chest: symmetrical chest wall rise Resp normal respiratory effort Effort and Inspection: able to speak in complete sentences Cardio regular rate GI non-distended Percussion: normal to percussion Rectal Exam: deferred Neuro Speech: speech normal Gait (Neuro): normal gait Lab / Micro Data Result Diagrams: 01/02/22 05:36 01/02/22 05:36 Labs: Laboratory Results - last 24 hr 01/02/22 05:36: WBC 8.1, RBC 3.71 L, Hgb 9.3 L, Hct 30.0 L, MCV 80.9 L, MCH 25.1 L, MCHC 31.0 L, RDW Std Deviation 54.4 H, RDW Coeff of Oscar 18.6 H, Plt Count 277, MPV 10.6, Immature Gran % (Auto) 0.500, Neut % (Auto) 78.6 H, Lymph % (Auto) 5.8 L, [place] % (Auto) 14.1 H, Eos % (Auto) 0.4, Baso % (Auto) 0.6, Absolute Neuts (auto) 6.3, Absolute Lymphs (auto) 0.47 L, Nucleated RBC % 1.4, Anisocytosis 2+ 01/02/22 05:36: Sodium 136, Potassium 4.5, Chloride 103, Carbon Dioxide 22.0, Anion Gap 11, BUN 80 H, Creatinine 1.65 H, Estim Creat Clear Calc 22.49, Est GFR (MDRD) Af Amer 38 L, Est GFR (MDRD) Non-Af 32 L, BUN/Creatinine Ratio 48.5 H, Glucose 156 H, Calcium 9.2 01/02/22 05:36: Hemoglobin A1c 6.6 H 01/02/22 05:36: TSH 0.72 01/02/22 12:32: APTT 30.2 01/02/22 15:22: POC Glucose 201 H Assessment & Plan Assessment/Plan (1) Dysphagia: PLAN: The differential diagnosis for esophageal dysphagia would be an esophageal stricture, eosinophilic esophagitis, Schatzki's ring, hiatal hernia in the setting of esophageal dysmotility disorder such as lack of peristalsis. Also dual diagnosis would include cricopharyngeal achalasia, esophageal diverticulum and pseudoachalasia. She will undergo an upper endoscopy. Her daughter and the patient were explained alternatives, risk, benefits including not withstanding bleeding, infection, sepsis, perforation, need for emergent surgery . She will have an ASA of 3. (2) Anemia: PLAN: We will evaluate her upper GI tract for an upper GI bleed as her BUN/creatinine ratio is highly suspicious for upper GI bleed. Also she does have chronic renal failure without a significant increase in her creatinine. Charges/Coding Visit Charges Inpatient E&M: 90810 Init Hosp L3
--- NOTE | 2022-01-02 18:42 | OP.EGD_ITS ---
Patient Name: Cathy Matias Procedure Date: 01/02/2022 6:15 PM Date of : 1940 Age: 81 Procedure: Upper GI endoscopy Indications: Dysphagia Providers: Jong Alberto DO Referring MD: Ruba Brennan Md Medicines: See the Anesthesia note for documentation of the administered medications Patient Profile: This is an 81 year old female. Refer to note in patient chart for documentation of history and physical. Patient has symptoms. The symptoms first began September. She is status post EGD for dilation within the past three months. Complications: No immediate complications. Procedure: Pre-Anesthesia Assessment: - Prior to the procedure, a History and Physical was performed, and patient medications and allergies were reviewed. The patient is competent. The risks and benefits of the procedure and the sedation options and risks were discussed with the patient. All questions were answered and informed consent was obtained. Patient identification and proposed procedure were verified by the physician in the pre-procedure area. Mental Status Examination: alert and oriented. Airway Examination: normal oropharyngeal airway and neck mobility. Respiratory Examination: clear to auscultation. CV Examination: normal. Prophylactic Antibiotics: The patient does not require prophylactic antibiotics. Prior Anticoagulants: The patient has taken no previous anticoagulant or antiplatelet agents. ASA Grade Assessment: II - A patient with mild systemic disease. After reviewing the risks and benefits, the patient was deemed in satisfactory condition to undergo the procedure. The anesthesia plan was to use moderate sedation / analgesia (conscious sedation). Immediately prior to administration of medications, the patient was re-assessed for adequacy to receive sedatives. The heart rate, respiratory rate, oxygen saturations, blood pressure, adequacy of pulmonary ventilation, and response to care were monitored throughout the procedure. The physical status of the patient was re-assessed after the procedure. After obtaining informed consent, the endoscope was passed under direct vision. Throughout the procedure, the patient's blood pressure, pulse, and oxygen saturations were monitored continuously. The Endoscope was introduced through the mouth, and advanced to the second part of duodenum. The upper GI endoscopy was accomplished without difficulty. The patient tolerated the procedure well. Moderate Sedation: Moderate (conscious) sedation was administered by the endoscopy nurse and supervised by the endoscopist. The patient's oxygen saturation, heart rate, blood pressure and response to care were monitored. Total physician intraservice time was 15 minutes. Scope In: 6:22:37 PM Scope Out: 6:32:34 PM Total Procedure Duration Time 0 hours 9 minutes 57 seconds Findings: Laryngeal edema was visualized, most prominently on the epiglottis. The edema is not obstructing the airway. The oropharynx was normal, except for a lot of thick mucus that was seen covering the epiglottis and the opening into the esophagus. A moderate-sized area of extrinsic compression was found in the upper third of the esophagus likely from the aortic arch in the left atrium. Two benign-appearing, intrinsic stenoses were found 18 to 20 cm from the incisors. These stenoses were moderately severe and the narrowest stenosis measured 3 mm (inner diameter) x 4 cm (in length). The stenoses were traversed. A guidewire was placed and the scope was withdrawn. Dilation was performed with a Savary dilator with no resistance at 60 Fr. The dilation site was examined and showed moderate improvement in luminal narrowing. Estimated blood loss was minimal. Diffuse mildly erythematous mucosa without bleeding was found in the entire examined stomach. The first portion of the duodenum was normal. Impression: - Laryngeal edema was found. - Normal oropharynx. - Extrinsic compression in the upper third of the esophagus. - Benign-appearing esophageal stenoses. Dilated. - Erythematous mucosa in the stomach. - Normal first portion of the duodenum. - No specimens collected. Recommendation: -Return to the floors. - Resume previous diet. - Continue present medications. Procedure Code(s): --- Professional --- 42499, Esophagogastroduodenoscopy, flexible, transoral; with insertion of guide wire followed by passage of dilator(s) through esophagus over guide wire [id number], 59, Moderate sedation services provided by the same physician or other qualified health housekeeper child care performing the diagnostic or therapeutic service that the sedation supports, requiring the presence of an independent trained observer to assist in the monitoring of the patient's level of consciousness and physiological status; initial 15 minutes of intraservice time, patient age 5 years or older CPT copyright 2017 [employer]. All rights reserved. The codes documented in this report are preliminary and upon monorail crane operator review may be revised to meet current compliance requirements. Jong Alberto DO 01/02/2022 6:42:06 PM This report has been signed electronically. Number of Addenda: 1 Note Initiated On: 01/02/2022 6:15 PM Addendum Number: 1 Addendum Date: 07/24/2022 6:33:53 AM MAC was used as sedation for this procedure. Jong Alberto DO 07/24/2022 6:33:57 AM This report has been signed electronically.
--- NOTE | 2022-01-02 18:42 | OP.CCLET_ITS ---
07/24/2022 Rommel Arango Re : Upper GI endoscopy procedure for Cathy Matias Dear Nba This procedure was performed on Sunday, January 02, 2022. My impressions and recommendations are as follows: Impressions : - Laryngeal edema was found. - Normal oropharynx. - Extrinsic compression in the upper third of the esophagus. - Benign-appearing esophageal stenoses. Dilated. - Erythematous mucosa in the stomach. - Normal first portion of the duodenum. - No specimens collected. Recommendations : -Return to the floors. - Resume previous diet. - Continue present medications. My findings are described in the full procedure note, which is enclosed. If I can be of further assistance, please feel free to contact me at . Sincerely, Jong Alberto, 01/02/2022 6:42:06 PM This report has been signed electronically.
[2022-01-02] MEDS: Dextrose 5%-0.2% NS 1,000 ML 30 ML IV (19:49)
[2022-01-02] MEDS: Insulin Lispro 100 UNIT/ML INSULN.PEN SC (20:10)
[2022-01-02 20:11] LABS: Bedside Glucose 200 mg/dL (74-106)
[2022-01-03] VITALS (14 sets, daily range): BP systolic 96–115; BP diastolic 55–60; PULSE 82–118; RESP 18–20; TEMP 36.5–36.6; O2SAT 94–98
[2022-01-03] MEDS: Insulin Lispro 100 UNIT/ML INSULN.PEN SC ×3 (05:30→21:33)
[2022-01-03] MEDS: Heparin Injection (Vial) 5,000 UNIT/ML VIAL 5000 UNIT SC ×2 (05:31→15:09)
[2022-01-03 05:35] LABS: Absolute Lymphocyte Count 0.39 X10^3/uL (0.83-4.51); Absolute Neutrophil Count 8.2 X10^3/uL (2.0-7.7); Basophil# 0.02 X10^3/uL; Basophil% 0.2 % (0-1); Hematocrit 30.6 % (37-47); Hemoglobin 9.6 g/dL (12.0-15.0); Lymphocyte # 0.39 X10^3/ul (0.83-4.51); Lymphocyte % 3.8 % (19-41); Mean Corp Hgb Conc 31.4 g/dL (32-36); Mean Corpuscular Hgb 25.3 pg (27.0-32.0); Mean Corpuscular Volume 80.5 fL (81-99); Mean Platelet Vol. 10.7 fl (6.2-12.0); Monocyte# 1.59 X10^3/uL; Monocyte% 15.5 % (0-10); NRBC Flagged by Analyzer 2.2 % (0-5); POSITIVE DIFFERENTIAL YES; Platelet Count 254 K/mm3 (150-450); RBC Distribution Width CV 18.9 % (11.6-14.6); RBC Distribution Width SD 54.3 fl (35.1-43.9); White Blood Count 10.3 K/mm3 (4.4-11.0)
[2022-01-03] MEDS: Metoprolol Tartrate 5 MG/5 ML Vial 2.5 MG IV (05:39)
[2022-01-03 05:44] LABS: Differential Indicated SCAN CRITERIA MET
[2022-01-03 05:48] LABS: Anisocytosis 1+
[2022-01-03 05:56] LABS: Bedside Glucose 195 mg/dL (74-106)
[2022-01-03 05:59] LABS: Anion Gap 11 (5-15); BUN 87 mg/dL (7-18); BUN/Creat Ratio 46.3 RATIO (10-20); Calcium,Total 9.3 mg/dL (8.5-10.1); Chloride 106 mmol/L (98-107); Creatinine, Serum 1.88 mg/dL (0.55-1.02); EST Glomerular Filtration Rate 27 mL/min (>60); Est Glom Filt Rate - Afr Amer 33 mL/min (>60); Estimated Creatinine Clearance 20.61 ml/min; Glucose 193 mg/dL (74-106); Potassium 4.5 mmol/L (3.5-5.1); Sodium Level 139 mmol/L (136-145)
[2022-01-03] MEDS: Albuterol 2.5 MG/3 ML VIAL.NEB. INHALATION ×3 (07:08→23:13)
[2022-01-03 07:50] LABS: Bedside Glucose 173 mg/dL (74-106)
--- NOTE | 2022-01-03 10:07 | PN.RENAL_ITS ---
Subjective Subjective Sitting in chair, daughter at bedside. Patient is very KIANA. Objective Data Objective Data Vital Signs: Vital Signs Temp Pulse Resp BP Pulse Ox 97.9 F 118 H 18 115/60 95 01/03/22 04:33 01/03/22 07:05 01/03/22 04:33 01/03/22 05:39 01/03/22 04:33 Oxygen Flow Rate (L/min) 2 Oxygen Delivery Method Room Air Weight: 78.2 kg Body Mass Index (BMI) 29.0 Intake & Output: Intake and Output for Last 24 Hours 01/01/22 01/02/22 01/03/22 23:59 23:59 23:59 Intake Total 1250 / 1250 110 / 110 Output Total 1300 / 1750 800 / 1000 275 / 275 Balance -50 / -500 -690 / -890 -275 / -275 Lab / Micro Data Result Diagrams: 01/03/22 04:53 01/03/22 04:53 Labs: Laboratory Results - last 24 hr 01/02/22 05:36: Hemoglobin A1c 6.6 H 01/02/22 05:36: TSH 0.72 01/02/22 12:32: APTT 30.2 01/02/22 15:22: POC Glucose 201 H 01/02/22 19:56: POC Glucose 200 H 01/03/22 00:29: POC Glucose 195 H 01/03/22 04:53: WBC 10.3, RBC 3.80 L, Hgb 9.6 L, Hct 30.6 L, MCV 80.5 L, MCH 25.3 L, MCHC 31.4 L, RDW Std Deviation 54.3 H, RDW Coeff of Oscar 18.9 H, Plt Count 254, MPV 10.7, Immature Gran % (Auto) 0.500, Neut % (Auto) 80.0 H, Lymph % (Auto) 3.8 L, [place] % (Auto) 15.5 H, Eos % (Auto) 0.0, Baso % (Auto) 0.2, Absolute Neuts (auto) 8.2 H, Absolute Lymphs (auto) 0.39 L, Nucleated RBC % 2.2, Anisocytosis 1+ 01/03/22 04:53: Sodium 139, Potassium 4.5, Chloride 106, Carbon Dioxide 22.0, Anion Gap 11, BUN 87 H, Creatinine 1.88 H, Estim Creat Clear Calc 20.61, Est GFR (MDRD) Af Amer 33 L, Est GFR (MDRD) Non-Af 27 L, BUN/Creatinine Ratio 46.3 H, Glucose 193 H, Calcium 9.3 01/03/22 05:28: POC Glucose 173 H Physical Exam Narrative no obvious distress no pallor no icterus no JVD s1s2 no murmurs lungs clear abdomen soft no organomegaly no edema villagomez+ Assessment & Plan Assessment/Plan (1) Acute heart failure with preserved ejection fraction (HFpEF): (2) Hyperkalemia: PLAN: K better, off IV lasix. K+ peaked 6.6, today 4.5 (3) JULISSA (acute kidney injury): PLAN: -She was recently admitted with congestive heart failure. Serum creatinine fluctuates between 1.3-1.5mg/dL with several variations. Currently creatinine is around 1.6-1.8mg/dL since admission. She was sent home on spironolactone, potassium supplements which is likely cause of hyperkalemia. Renal function stable and no acute indication for [employer]. Today creatinine 1.8 mg/dL, lasix stopped. Bps acceptable on lopressor. labs ordered for am. - GI consulted for dysphagia, had EGD wit dilatation of esophagus - palliative care team consulted, note reviewed
--- NOTE | 2022-01-03 10:20 | PN.PALL_ITS ---
Subjective Subjective Patient seen in conjunction with daughter for follow-up on palliative services and yesterday's EGD findings. Patient is eager to have evaluation by ST today and MBS for diet reinstatement, noting that she wants a big Diet Pepsi and a Garces Lite. Wilcox will be removed today. Creatinine up to 1.88 today with Nephro following; Lasix on hold. Objective Data Objective Data Vital Signs: Vital Signs Temp Pulse Resp BP Pulse Ox 97.9 F 118 H 18 115/60 95 01/03/22 04:33 01/03/22 07:05 01/03/22 04:33 01/03/22 05:39 01/03/22 04:33 Oxygen Flow Rate (L/min) 2 Oxygen Delivery Method Room Air Weight: 172 lb 6.424 oz Body Mass Index (BMI) 29.0 Intake & Output: Intake and Output for Last 24 Hours 01/01/22 01/02/22 01/03/22 23:59 23:59 23:59 Intake Total 1250 / 1250 110 / 110 Output Total 1300 / 1750 800 / 1000 275 / 275 Balance -50 / -500 -690 / -890 -275 / -275 Lab / Micro Data Result Diagrams: 01/03/22 04:53 01/03/22 04:53 Labs: Laboratory Results - last 24 hr 01/02/22 05:36: Hemoglobin A1c 6.6 H 01/02/22 05:36: TSH 0.72 01/02/22 12:32: APTT 30.2 01/02/22 15:22: POC Glucose 201 H 01/02/22 19:56: POC Glucose 200 H 01/03/22 00:29: POC Glucose 195 H 01/03/22 04:53: WBC 10.3, RBC 3.80 L, Hgb 9.6 L, Hct 30.6 L, MCV 80.5 L, MCH 25.3 L, MCHC 31.4 L, RDW Std Deviation 54.3 H, RDW Coeff of Oscar 18.9 H, Plt Count 254, MPV 10.7, Immature Gran % (Auto) 0.500, Neut % (Auto) 80.0 H, Lymph % (Auto) 3.8 L, [place] % (Auto) 15.5 H, Eos % (Auto) 0.0, Baso % (Auto) 0.2, Absolute Neuts (auto) 8.2 H, Absolute Lymphs (auto) 0.39 L, Nucleated RBC % 2.2, Anisocytosis 1+ 01/03/22 04:53: Sodium 139, Potassium 4.5, Chloride 106, Carbon Dioxide 22.0, Anion Gap 11, BUN 87 H, Creatinine 1.88 H, Estim Creat Clear Calc 20.61, Est GFR (MDRD) Af Amer 33 L, Est GFR (MDRD) Non-Af 27 L, BUN/Creatinine Ratio 46.3 H, Glucose 193 H, Calcium 9.3 01/03/22 05:28: POC Glucose 173 H Assessment & Plan Assessment/Plan (1) Dysphagia: (2) Fatigue: (3) Impaired mobility: (4) Chronic diastolic (congestive) heart failure: (5) Chronic respiratory failure: (6) Depression: (7) Type 2 diabetes mellitus with skin complication, without long-term current use of insulin: QUALIFIERS: Diabetes mellitus complication detail: with foot ulcer Qualified Code(s): E11.621 - Type 2 diabetes mellitus with foot ulcer; L97.509 - Non-pressure chronic ulcer of other part of unspecified foot with unspecified severity PLAN: Patient and daughter present, Shawna, are in agreement for [facility] palliative services to follow at home after discharge. Family will be taking turns staying with patient to avoid halfway placement; they would like resumption of [facility]. A liaison from [facility] will contact daughter to arrange a time for consent signing. Shawna voices understanding that patient does qualify for hospice services at present, but family wishes to proceed with palliative only at this time. 1. Shortness of breath, multifactoral, related to decompensated CHF, pulmonary HTN, PAL, AV stenosis, and non-ischemic cardiomyopathy. -Cautious with diuretics given worsening renal function again today and hyperkalemia at admission - will defer to Nephro and Cardiology. -She may potentially be a candidate for low-dose opioid therapy, such as Roxanol to assist with decreasing work of breathing; will assess opioid risk as an outpatient. -Continue on home oxygen therapy at bedtime and CPAP therapy as recommended. 2. Dysphagia secondary to esophageal stenosis, now dilated. Extrinsic cardiac compression of the upper third of the esophagus. -Daughter reports that Dr. Alberto mentioned the possibility of a J-tube in the future depending on MBS and ST recommendations. -Palliative will provide ongoing education and support at home. Thank you for the opportunity to participate in this patient's care. Please do not hesitate to contact [facility] with any further questions or concerns. Palliative direct line is [phone]. Greater than 50% of [id number] visit was dedicated to education and counseling about palliative care services, limitation, medications, comorbid conditions, and potential assistance with management and care coordination moving forward. Start time: 0947 Stop time: 8236
[2022-01-03] MEDS: Fluticasone 0.05% 1 SPRAY NASAL.SRY 2 SPRAY NASAL (10:58)
[2022-01-03] MEDS: Allopurinol 300 MG Tablet PO (10:59)
[2022-01-03] MEDS: Folic Acid 1 MG Tablet PO (10:59)
[2022-01-03] MEDS: FLUoxetine 20 MG Capsule 40 MG PO (10:59)
[2022-01-03] MEDS: Aspirin 81 MG TAB.CHEW PO (10:59)
[2022-01-03] MEDS: Montelukast 10 MG Tablet PO (11:00)
--- NOTE | 2022-01-03 11:15 | PCM.PN.HOSP ---
Subjective Subjective Patient is due for modified barium swallow/videofluoroscopic study today. I talked to the patient's daughter along with the speech therapist near the bedside. Patient is started on diet in the afternoon Objective Data Objective Data Vital Signs: Vital Signs Temp Pulse Resp BP Pulse Ox 97.9 F 118 H 18 115/60 95 01/03/22 04:33 01/03/22 07:05 01/03/22 04:33 01/03/22 05:39 01/03/22 04:33 Oxygen Flow Rate (L/min) 2 Oxygen Delivery Method Room Air Weight: 172 lb 6.424 oz Body Mass Index (BMI) 29.0 Intake & Output: Intake and Output for Last 24 Hours 01/01/22 01/02/22 01/03/22 23:59 23:59 23:59 Intake Total 1250 / 1250 110 / 110 Output Total 1300 / 1750 800 / 1000 275 / 275 Balance -50 / -500 -690 / -890 -275 / -275 Lab / Micro Data Result Diagrams: 01/03/22 04:53 01/03/22 04:53 Labs: Laboratory Results - last 24 hr 01/02/22 05:36: Hemoglobin A1c 6.6 H 01/02/22 05:36: TSH 0.72 01/02/22 12:32: APTT 30.2 01/02/22 15:22: POC Glucose 201 H 01/02/22 19:56: POC Glucose 200 H 01/03/22 00:29: POC Glucose 195 H 01/03/22 04:53: WBC 10.3, RBC 3.80 L, Hgb 9.6 L, Hct 30.6 L, MCV 80.5 L, MCH 25.3 L, MCHC 31.4 L, RDW Std Deviation 54.3 H, RDW Coeff of Oscar 18.9 H, Plt Count 254, MPV 10.7, Immature Gran % (Auto) 0.500, Neut % (Auto) 80.0 H, Lymph % (Auto) 3.8 L, [place] % (Auto) 15.5 H, Eos % (Auto) 0.0, Baso % (Auto) 0.2, Absolute Neuts (auto) 8.2 H, Absolute Lymphs (auto) 0.39 L, Nucleated RBC % 2.2, Anisocytosis 1+ 01/03/22 04:53: Sodium 139, Potassium 4.5, Chloride 106, Carbon Dioxide 22.0, Anion Gap 11, BUN 87 H, Creatinine 1.88 H, Estim Creat Clear Calc 20.61, Est GFR (MDRD) Af Amer 33 L, Est GFR (MDRD) Non-Af 27 L, BUN/Creatinine Ratio 46.3 H, Glucose 193 H, Calcium 9.3 01/03/22 05:28: POC Glucose 173 H Physical Exam Narrative Seen and examined. On dry cell assembly supervisor sinus rhythm with multiple PVCs. General: Alert, Oriented x3, Cooperative HEENT: Atraumatic, PERRLA, EOMI, Normocephalic Oral: No Gingival or Mucosal Lesions/ Ulcerations Neck: Supple, No JVD, Negative Carotid Bruits Lungs: Air entry diminished in bilateral lung bases. Bilateral lung crepitations improving. Cardiovascular: Sinus rhythm with PVCs, Normal S1, Normal S2, systolic murmur LLSB Abdomen: Bowel Sounds Present, Soft, Non Tender, Non-Distended : No renal angle tenderness. No suprapubic tenderness. Extremities: No edema, Capillary Refill Less than 3 Seconds Skin: No rashes, No breakdown Musculoskeletal: No Tenderness to Palpation of Joints or Extremities Neurological: Cranial nerves II-XII grossly intact, DTR 2+/4 and Symmetrical, Neuro grossly intact Psych/Mental Status: Flat affect. Assessment & Plan Assessment/Plan (1) Chest pain: (2) Elevated troponin I level: (3) Fatigue: (4) Acute decompensated heart failure: PLAN: 1. Atypical chest pain, non-STEMI: Patient is being admitted in ICU. Patient had elevated troponin during previous admission on 12/29. This time first high-sensitivity troponin 393 and subsequent trending down. Patient seen by customer engagement specialist. Currently chest pain has resolved. Shortness of breath is improved. Detailed history for difficult because of severe hearing impairment. 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 In July 2015 she had PCI with BMS to ostial and proximal RCA. Claim Rep recommended conservative medical therapy. 01/02 no further chest pain or shortness of breath. 2. Acute on chronic systolic and diastolic combined heart failure: Patient does not have leg swelling but has coarse crepitation in lung bases along with elevated BNP. Recent echo in 2019 shows EF 35 to 40% and moderate aortic stenosis. 2D echo done on 01/01 shows EF 25%, moderate to severe global hypokinesis of LV, stage III diastolic dysfunction moderate aortic valve calcification, mean AV gradient 16 mmHg. Compared to previous echo EF has worsened. 01/02 on Lasix 20 mg IV twice daily. Normocytic normochromic anemia H&H is stable. Platelet count normal. 01/03: Lasix discontinued because of worsening creatinine. Patient does not have leg swelling. Shortness of breath is improved. Metoprolol succinate resumed. Metoprolol 5 mg IV every 6 hourly. For heart rate more than 120 per night. 3. 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 Patient is currently n.p.o. therefore no Kayexalate. Seen by electrical accessories i assembler. Hyperkalemia due to spironolactone and potassium supplement. Patient has Wilcox catheter in draining clear urine. 01/02: Patient potassium is normal. 01/03: Nephrology follow-up appreciated. Monitor kidney function and electrolytes. Creatinine worsening 4. Right Heel wound and sacral ulcer, present on admission: She follows wound center last seen on 12/14/2021. Her right heel grew Pseudomonas was completed Cipro for 7 days. After that she also was on Augmentin. Leukocytosis improving. Wound care consult 01/02: Wound nurse note reviewed. Patient had healed right heel pressure injury. There is thin callus noted. No open area. Sacrococcygeal region pressure injury 0.3 x 0.4 x 0.6 cm stage III with red granulation pink tissue. Dressing done by wound nurse. 5. Diabetes mellitus type 2: Hold Metformin and oral hypoglycemic agents. Accu-Cheks and cover regimen of sliding scale. 6. Esophageal dysphagia with possible oropharyngeal dysphagia: Discussed with GI. Will evaluate the patient for possible EGD with esophageal dilatation if needed. I also talked regarding PEG tube with the patient's daughter and said risk of aspiration will be similar after PEG tube. Earlier patient was planned for barium esophagogram which was canceled because of the risk of aspiration. Discussed with the speech therapist in detail and plan for modified barium swallow/videofluoroscopy. 01/03: Patient had EGD. Laryngeal edema. Extrinsic compression of upper third of esophagus. Benign appearing esophageal stenosis dilated. Erythematous mucosa of the stomach. Patient modified barium swallow. Diet resumed under supervision as directed by speech therapist. 7. Hypothyroidism hold oral Synthroid. Patient is n.p.o. 8. GERD on PPI 9. Anxiety/depression. Overall Prozac on hold. Patient seen by palliative care. 10 DVT: Heparin 5000 subcutaneous every 8 hourly. Patient has worsening of bruises over both upper extremities. Hold heparin subcu tonight. Heparin subcu frequency increased to every 12 hours starting from tomorrow. Discontinue if platelet count drops less than 50,000 or hemoglobin less than 8 g% Total time of the visit including total time spent in counseling or coordination of care, (more than 50% of the total time, spent in obtaining medical information from nurses and other ancillary care providers,explaining to the patient and her daughter near the bedside about labs, imaging, diagnosis and management), calling and discussion with electrical accessories i assembler, customer engagement specialist, GI, wound nurse, review of labs and imaging is 40 minutes. Charges/Coding Visit Charges Inpatient E&M: 95184 Subs Hosp L2
[2022-01-03 11:35] LABS: Bedside Glucose 204 mg/dL (74-106)
--- NOTE | 2022-01-03 13:59 | CASEMGMT ---
Addendum entered by Kingsley Bustamante 01/03/22 14:25: Family plan to take turns staying w/pt to help to care for her. Parul Robles, inquiring about cost of hospital beds. Per Margo, out of pocket cost for semi-electric bed would be approx $80/mo. Full electric bed would be an additional $150/mo. They would bill [facility] for 10-13 months and then pt would own the hospital bed. Parul Robles, given this information. Florinda @ [facility] aware PT/OT and ST have been added to [facility] order. Original Note: REGGIE QUEVEDO NOTE: REGGIE QUEVEDO was informed that pt/family are interested in pt getting a hospital bed. Pt has returned to room from having MBS done. Pt resting in bed. Parul Robles, @ bedside. REGGIE QUEVEDO to room at this time to talk w/them. Parul states they are considering a hospital bed, but they are unsure at this time. She states she wishes to talk things over more w/her 2 other sisters and w/pt again about it, as she is not sure if pt will be agreeable to one yet or not. Parul provided w/list of local DME companies to look over if they do decide they want one. Pt has O2 @ home. Per pt, she gets this through [employer]. Parul states she wears it @ HS and it is bled-in through CPAP. Call placed to Elizabeth @ [facility]. She confirms pt has O2 @ home @ 2l/m @ HS only and she has been provided a back-up O2 tank as well. Inquired if they have hospital beds, as pt may want to get one. She states they do carry them, but they are on back-order at this time. Call placed to [facility] and spoke w/Florinda. She is aware pt has been admitted to [facility]. She states pt is active w/them and currently getting SN only. Palliative referral has been made and Mechelle has been in to talk w/pt and family. Per Mechelle, pt and family agreeable to Palliative care. Intake liaison went into room after REGGIE QUEVEDO exited, to talk w/them at this time. Rupal SOLARES RN, CM
[2022-01-03] MEDS: Ondansetron 4 MG/2 ML Vial IV (15:17)
[2022-01-03 15:46] LABS: Bedside Glucose 230 mg/dL (74-106)
[2022-01-03] MEDS: Metoprolol(XL)Succ 25 MG Tablet PO (15:47)
--- NOTE | 2022-01-03 16:24 | SP.MBSS_ITS ---
Modified Barium Swallow - Patient Information Study Date: 01/03/22 Study Time: 12:30 Direct Billable Minutes: 120 Total Minutes procedure & reportin Diagnosis: Dysphagia (R13.10) Referring Physician: Ryley Tucker Reason for Referral: Objectively assess swallow function, risk for aspiration, and determine recommendations for least restrictive diet textures and compensatory strategies to improve safety of swallow. Medical History: Cathy Matias is a 81 F who presented to [facility] ED 01/01/2022 with chest pain and shortness of breath. Patient has significant past medical history with recent discharge from the hospital on December 30, 2021 for CHF exacerbation. The patient was admitted for management of chest pain, acute heart failure, fatigue, and elevated troponin. She was referred for speech consult to assess aspiration risk due to history of esophageal dilations and patient reporting recent difficulty swallowing. Pt has extensive past medical history, including CHF, DM Type II, GERD, hx of STEMI (2012), chronic respiratory failure, HTN. SEE chart for full PMH. History of oropharyngeal dysphagia. MBSS was completed on 09/30/18 with recommendation for regular foods/thin liquids with use of strategies. One OP ST session was completed after MBSS to educate patient on strategies and swallowing deficits. Pt was seen for bedside speech therapy evaluation 01/01/2022 and ALARM INSTALLATION TECHNICIAN recommended continue NPO. ALARM INSTALLATION TECHNICIAN referred pt for barium esophagram due to patient reports of esophageal retention and ALARM INSTALLATION TECHNICIAN concern for poor esophageal clearance increasing risk for reflux and aspiration. This test was planned for 01/02/2022, but not completed due to radiologist?s concern for aspiration. 01/02/2022 Upper GI Endoscopy was completed and revealed laryngeal edema, normal oropharynx, extrinsic compression of upper 1/3 of esophagus, and esophageal stenosis. Dilation was performed. She was seen at bedside for trials of po intake with speech therapy 01/03/2022 and recommended NPO sips and chips with MBS study to be completed prior to diet advancement due to concerns for aspiration. Current Diet Ordered: NPO with sips & chips permitted Mental Status: WNL Respiratory Status: Oxygenating on Room Air - Penetration-Aspiration Scale Penetration-Aspiration Scale: OBJECTIVE ASSESSMENT OF SWALLOW FUNCTION (QUANTITATIVE ? PER TRIAL): PENETRATION / ASPIRATION SCALE (TORRES): 1 = does not enter airway 2 = enters airway/above vocal folds/ejected 3 = enters airway/above vocal folds/not ejected 4 = enters airway/contacts vocal folds/ejected 5 = enters airway/contacts vocal folds/not ejected 6 = enters airway/below vocal folds/ejected 7 = enters airway/below vocal folds/not ejected despite effort 8 = enters airway/below vocal folds/no effort VIDEOFLOROSCOPIC SCALE SCORE (TORRES): Grade I = aspiration of material that has penetrated into the laryngeal vestibule, intact cough reflex Grade II = aspiration < 10 % of the bolus, intact cough reflex Grade III = aspiration of < 10 % of the bolus, reduced cough reflex or aspiration of > 10 % of the bolus, intact cough reflex Grade IV = aspiration of > 10 % of the bolus, reduced cough reflex - Penetration-Aspiration Scale Score Thin Liquid via teaspoon Result: 3= enters airways/above vocal folds/not ejected Thin Liquid via teaspoon Trial 2 Result: 4= enters airway/contacts vocal folds/ejected Thin Liquid via large single sip from cup Result: 5= enters airways/contacts vocal folds/not ejected Thin Liquid via small single sip from cup Result: 7= enters airways/below vocal folds/not ejected despite effort - Post prandial aspiration. Grade II = aspiration < 10 % of the bolus, intact cough reflex; however, pt unable to effectively expel bolus with cough. [place] Thick Liquid via teaspoon Result: 1= does not enter airway [place] Thick Liquid via teaspoon Trial 2 Result: 2= enter airway/above vocal folds/ejected [place] Thick Liquid via small single sip from cup Result: 1= does not enter airway [place] Thick Liquid via large single sip from cup Result: 3= enters airways/above vocal folds/not ejected [place] Thick Liquid via small single sip from cup Trial 2 Result: 2= enter airway/above vocal folds/ejected [place] Thick Liquid via small single sip from cup Result: 1= does not enter airway Pudding Result: 1= does not enter airway Comment: Esophageal screen completed. Slow emptying of barium contrast and retrograde flow below UES. 1/4 Cookie Result: 1= does not enter airway Thin Liquid via single sip from straw Result: 1= does not enter airway Thin Liquid via single sip from straw Trial 2 Result: 5= enters airways/contacts vocal folds/not ejected Thin Liquid via small single sip from cup Effortful swallow Result: 2= enter airway/above vocal folds/ejected Thin Liquid via small single sip from cup Effortful swallow Trial 2 Result: 3= enters airways/above vocal folds/not ejected Thin Liquid via small single sip from cup Chin tuck Result: 3= enters airways/above vocal folds/not ejected [place] Thick Liquid via small single sip from cup Trial 3 Result: 1= does not enter airway - [place] thick contrast did not appear to enter laryngeal vestibule; however, the patient demonstrated post prandial aspiration of thin liquid contrast remaining in the laryngeal vestibule and on the vocal folds during this trial and the two subsequent trials. - Oral Phase Labial Seal: Interlabial escape, no progression to anterior lip Tongue Control During Bolus Hold: Posterior escape of less than half of bolus Bolus Preparation/Mastication: Disorganized chewing/mashing with solid pieces of bolus unchewed - Partially unmashed cookie present on dorsal tongue surface and tongue base after the swallow Bolus Transport/Lingual Motion: Slowed tongue motion Oral Residue: Residue collection on oral structures - Pharyngeal Phase Initiation of Pharyngeal Swallow: Bolus head in pyriforms Soft Palate Elevation: No bolus between soft palate and pharyngeal wall Laryngeal Elevation: Partial superior movement thyroid cart/partial apprx aryt- epig petiole Anterior Hyoid Excursion: Partial anterior movement Epiglottic Movement: Partial inversion Laryngeal Vestibule Closure at Height of Swallow: Incomplete; narrow column of air/contrast in laryngeal vestibule Pharyngeal Stripping Wave: Present - complete Pharyngoesophageal Segment Opening: Parital distension and partial duration; parital obstruction of flow Tongue Base Retraction: Narrow column of contrast between tongue base & post. pharyngeal wall Pharyngeal Residue: Collection of residue within or on pharyngeal structures - Esophageal Phase Esophageal Clearance: Esophageal retention w/ retrograde flow below pharyngoesophageal seg. - Treatment Strategies Effects of treatment strategies attemped:: Decreased bolus size = Effective Chin tuck = No impact observed. Double swallow = Effective. Cough and reswallow = Somewhat effective. Effortful swallow = Somewhat effective. - Diagnosis/Impression Diagnosis: Moderate oropharyngeal phase dysphagia (R13.12) Impression: The oral phase is primarily marked by decreased mastication and slowed A-P transport. The patient had partially unchewed pieces of cookie on dorsal tongue and tongue base after the swallow. She also has decreased bolus control with premature posterior loss of bolus resulting in suboptimal bolus placement at swallow onset. The pharyngeal phase is primarily marked by decreased airway closure during the swallow and delayed swallow onset. The patient demonstrates decreased anterior hyoid excursion and laryngeal elevation, resulting in decreased approximation of the arytenoids to the epiglottic petiole during the swallow. The patient had laryngeal penetration of nectar thick liquids that remained above the vocal folds and that fully ejected from the laryngeal vestibule as long as the patient maintained small sip size. She demonstrated laryngeal penetration of thin liquid trials that did not reliably eject from the laryngeal vestibule. She had post prandial aspiration of residual thin liquids contrast in the laryngeal vestibule. The patient did elicit cough response or throat clear when experiencing post prandial aspiration; however, it was not effective to clear aspirated contrast. During certain trials, she was able to clear some contrast of thin and nectar thickened liquids that had penetrated the laryngeal vestibule. ALARM INSTALLATION TECHNICIAN encouraged strong cough and re-swallow during intake. SEE PAS scores above for full details regarding penetration/aspiration occurring during the study. The esophageal phase is marked by slowed esophageal clearance and retrograde flow of bolus below the upper esophageal sphincter. - Recommendations Diet: Thin Liquids - Soft and Bite Size Textures (IDDSI Level 6) Compensatory Strategies: Small Bites, Small Sips - Consider sips by tsp if unable to reliably control bolus size., Slow Rate, Multiple Swallows - At least double swallow on each sip, Sitting upright, Remain sitting upright for 30 minutes after PO intake, Assist with verbal cues to use recommended strategies - Encourage cough and reswallow if wet vocal quality Supervision: 1:1 Close Supervision Recommend Repeat Modified Barium Swallow: Yes - Will recommend repeat MBS study prior to diet advancement. Will recommend repeat MBS study 4-6 weeks after implementation of oropharyngeal strengthening. Need for Skilled Speech Therapy Services: Yes Comment: Will recommend the patient for continued dysphagia therapy to address deficits in oropharyngeal swallow function. Would consider the patient for oropharyngeal strengthening to improve tongue base retraction, laryngeal elevation, and anterior hyoid excursion ([place], effortful swallow, [place], effortful breath hold and swallow, CTAR). The patient would benefit from thorough education regarding diet recommendations and recommended compensatory strategies. Would consider the patient for implementation of [place] Free Water Protocol (FFWP) to encourage hydration and promote increased opportunities for swallowing throughout the patient?s day. Education Completed: 1. Described result of evaluation., 4. Family/caregivers understand evaluation & agree w/ goals & tx plan., 7. Pt requires further education on strategies & risks. - Status Active ST Patient: Active - Contact Information [facility] Speech Therapy:: Elmira Rollins M.A. [facility]-ALARM INSTALLATION TECHNICIAN Speech-Language Pathologist [place] [address] [place] [address] [email or web address] [phone] 01/03/22 16:52
[2022-01-03] MEDS: Atorvastatin Calcium 10 MG Tablet PO (21:34)
[2022-01-03 22:06] LABS: Bedside Glucose 188 mg/dL (74-106)
[2022-01-04] VITALS (20 sets, daily range): BP systolic 89–118; BP diastolic 45–60; PULSE 66–94; RESP 13–24; TEMP 36.4–37; O2SAT 92–95
[2022-01-04 05:11] LABS: Absolute Lymphocyte Count 0.53 X10^3/uL (0.83-4.51); Absolute Neutrophil Count 8.5 X10^3/uL (2.0-7.7); Basophil# 0.04 X10^3/uL; Basophil% 0.4 % (0-1); Eosinophil# 0.09 X10^3/uL; Eosinophils% 0.8 % (0-5); Hematocrit 31.4 % (37-47); Hemoglobin 9.8 g/dL (12.0-15.0); Lymphocyte # 0.53 X10^3/ul (0.83-4.51); Lymphocyte % 4.8 % (19-41); Mean Corp Hgb Conc 31.2 g/dL (32-36); Mean Corpuscular Hgb 25.7 pg (27.0-32.0); Mean Corpuscular Volume 82.4 fL (81-99); Mean Platelet Vol. 10.5 fl (6.2-12.0); Monocyte# 1.89 X10^3/uL; NRBC Flagged by Analyzer 2.4 % (0-5); Neutrophil # 8.52 X10^3/uL (2.7-7.7); Neutrophil % 76.5 % (47-70); POSITIVE DIFFERENTIAL YES; Platelet Count 222 K/mm3 (150-450); RBC Distribution Width CV 18.6 % (11.6-14.6); RBC Distribution Width SD 54.4 fl (35.1-43.9); Red Blood Count 3.81 M/mm3 (4.2-5.4); White Blood Count 11.1 K/mm3 (4.4-11.0)
[2022-01-04 05:19] LABS: Differential Indicated SCAN CRITERIA MET
[2022-01-04 05:35] LABS: Anion Gap 7 (5-15); BUN 83 mg/dL (7-18); BUN/Creat Ratio 48.3 RATIO (10-20); Chloride 106 mmol/L (98-107); Creatinine, Serum 1.72 mg/dL (0.55-1.02); EST Glomerular Filtration Rate 30 mL/min (>60); Est Glom Filt Rate - Afr Amer 37 mL/min (>60); Estimated Creatinine Clearance 22.53 ml/min; Glucose 129 mg/dL (74-106); Potassium 3.9 mmol/L (3.5-5.1); Sodium Level 138 mmol/L (136-145)
[2022-01-04 05:43] LABS: Magnesium 2.8 mg/dL (1.6-2.6)
[2022-01-04] MEDS: Levothyroxine 75 MCG Tablet PO (05:56)
[2022-01-04 06:36] LABS: Differential Comment SCANNED
[2022-01-04] MEDS: Albuterol 2.5 MG/3 ML VIAL.NEB. INHALATION ×3 (07:27→22:19)
[2022-01-04] MEDS: Folic Acid 1 MG Tablet PO (08:43)
[2022-01-04] MEDS: Aspirin 81 MG TAB.CHEW PO (08:43)
[2022-01-04] MEDS: Allopurinol 300 MG Tablet PO (08:44)
[2022-01-04] MEDS: Fluticasone 0.05% 1 SPRAY NASAL.SRY 2 SPRAY NASAL (08:44)
[2022-01-04] MEDS: FLUoxetine 20 MG Capsule 40 MG PO (08:46)
[2022-01-04] MEDS: Montelukast 10 MG Tablet PO (08:47)
[2022-01-04] MEDS: Heparin Injection (Vial) 5,000 UNIT/ML VIAL 5000 UNIT SC ×2 (08:48→20:55)
[2022-01-04] MEDS: 0.9% Saline Lock 10 ML Syringe IV ×2 (08:49→12:26)
--- NOTE | 2022-01-04 10:05 | PCM.PN.REN ---
Subjective Subjective Sitting in chair, hard of hearing. No complaints. No overnight events. Objective Data Objective Data Vital Signs: Vital Signs Temp Pulse Resp BP Pulse Ox 98.6 F 86 15 105/47 L 94 01/04/22 08:30 01/04/22 08:30 01/04/22 08:30 01/04/22 08:30 01/04/22 09:18 Oxygen Flow Rate (L/min) 2 Oxygen Delivery Method Room Air Weight: 78.9 kg Body Mass Index (BMI) 29.0 Intake & Output: Intake and Output for Last 24 Hours 01/02/22 01/03/22 01/04/22 23:59 23:59 23:59 Intake Total 110 / 110 843.5 / 843.5 240 / 240 Output Total 800 / 1000 675 / 675 150 / 150 Balance -690 / -890 168.5 / 168.5 90 / 90 Lab / Micro Data Result Diagrams: 01/04/22 03:50 01/04/22 03:50 Labs: Laboratory Results - last 24 hr 01/03/22 11:30: POC Glucose 204 H 01/03/22 15:28: POC Glucose 230 H 01/03/22 21:32: POC Glucose 188 H 01/04/22 03:50: WBC 11.1 H, RBC 3.81 L, Hgb 9.8 L, Hct 31.4 L, MCV 82.4, MCH 25.7 L, MCHC 31.2 L, RDW Std Deviation 54.4 H, RDW Coeff of Oscar 18.6 H, Plt Count 222, MPV 10.5, Immature Gran % (Auto) 0.500, Neut % (Auto) 76.5 H, Lymph % (Auto) 4.8 L, [place] % (Auto) 17.0 H, Eos % (Auto) 0.8, Baso % (Auto) 0.4, Absolute Neuts (auto) 8.5 H, Absolute Lymphs (auto) 0.53 L, Nucleated RBC % 2.4, Differential Comment SCANNED, Diff Path Review February01/04/22 03:50: Sodium 138, Potassium 3.9, Chloride 106, Carbon Dioxide 25.0, Anion Gap 7, BUN 83 H, Creatinine 1.72 H, Estim Creat Clear Calc 22.53, Est GFR (MDRD) Af Amer 37 L, Est GFR (MDRD) Non-Af 30 L, BUN/Creatinine Ratio 48.3 H, Glucose 129 H, Calcium 9.0 01/04/22 03:50: Magnesium 2.8 H Physical Exam Narrative Const: A7Ox3, NULATO Cardio: S1 S2 RRR Resp: LS CTA, no wheezes, rhonchi or rales Extremities: No pitting edema : Wilcox out, has pure wick Assessment & Plan Assessment/Plan (1) Acute heart failure with preserved ejection fraction (HFpEF): (2) Hyperkalemia: PLAN: K better, off IV lasix. K+ peaked 6.6, today 3.9. Recommend to keep off aldactone at discharge (3) JULISSA (acute kidney injury): PLAN: -She was recently admitted with congestive heart failure. Serum creatinine fluctuates between 1.3-1.5mg/dL with several variations. Currently creatinine is around 1.6-1.8mg/dL since admission. She was sent home on spironolactone, potassium supplements which is likely cause of hyperkalemia. Renal function stable and no acute indication for PALLET STONE INSERTER. Today creatinine 1.72 mg/dL, lasix stopped yesterday (Scr was 1.88mg/dL yesterday). Ok to remain off diuretic for now. Volume status is good. No edema and LS clear. On diet with thickened liquids. Bps acceptable on lopressor. - GI consulted for dysphagia, had EGD with dilatation of esophagus - palliative care team consulted, note reviewed - discharge planning in progress, discussed with Dr. Tucker.
--- NOTE | 2022-01-04 10:27 | PCM.DC ---
Discharge Instructions Diet Discharge Diet: Low fat / Low cholesterol, 1800 Calorie Control Diet and 6 Cup Fluid Restriction Activity Discharge Activity: Return to Normal Activity and May Not Drive Weight Bearing Status: Weight bearing as tolerated Dressing / Incision Call your doctor if you observe: Fever of 101 or Higher, Coldness, Increased Pain, Numbness or Tingling, Change in Color, Inability to urinate, Inability to have a bowel movement, Using more than 1 pad per hour, Shortness of breath, Dizziness, Fainting spells, Swelling in the ankles, Chest pain, Prolonged hiccupping, Increased palpitations (irregular heartbeat), Calf discomfort and Uncontrolled pain Follow Up Care Test Results: Test results from this visit will be discussed in further detail at your follow-up appointment, if applicable. Discharge Plan Admission Admit Date/Time: 01/01/22 03:40 Primary Reason for Your Visit: Acute on chronic combined heart failure, acute kidney injury and CKD G4, Attending Provider: Ryley Tucker Primary Care Provider: Rommel Arango Consulting Providers: Ruba Brennan ; Gisel Pacheco Discharge Orders/Prescriptions Prescriptions: New pantoprazole [Protonix] 40 mg tablet,delayed release (DR/EC) 40 mg PO DAILY Qty: 30 RF: 2 Continued allopurinol 300 mg tablet 300 mg PO DAILY RF: 0 fluoxetine 40 mg capsule 40 cap PO DAILY RF: 0 guaifenesin [Mucinex] 600 mg tablet extended release 12hr 600 mg PO BID PRN (Reason: Cough) RF: 0 albuterol sulfate 2.5 MG/3 ML solution for nebulization 2.5 mg inhalation TID RF: 0 levothyroxine 75 MCG tablet 75 mcg PO DAILY RF: 0 simvastatin 20 MG tablet 20 mg PO QHS RF: 0 nitroglycerin 0.4 MG tablet, sublingual 0.4 mg sublingual Q5M PRN (Reason: Chest Pain) RF: 0 aspirin 81 MG tablet,chewable 81 mg PO DAILY@0800 RF: 0 folic acid 1 MG tablet 1 mg PO DAILY RF: 0 polyethylene glycol 3350 17 GM packet 17 g PO DAILY RF: 0 methylcellulose (laxative) 479 GM powder 850 g PO DAILY RF: 0 conjugated estrogens 0.625 MG tablet 0.625 mg vaginal MOWEFR RF: 0 montelukast 10 MG tablet 10 mg PO DAILY RF: 0 potassium chloride 20 MEQ tablet 40 meq PO BID RF: 0 nystatin [Nystop] 1 APPLIC bottle 1 applic TOPICAL BID RF: 0 acetaminophen 500 MG tablet 1,000 mg PO Q6H PRN PRN (Reason: Pain Score 1-10) RF: 0 fluticasone propionate 1 SPRAY spray,suspension 2 spray NASAL DAILY Qty: 1 RF: 0 menthol-zinc oxide 1 APPLIC ointment 1 applic TOPICAL BID RF: 0 isosorbide mononitrate 60 MG tablet 60 mg PO BID Qty: 0 RF: 0 metoprolol succinate 25 MG tablet extended release 24 hr 25 mg PO DAILY Qty: 0 RF: 0 Held furosemide [Lasix] 40 mg tablet 40 mg PO BID 30 Days Qty: 60 RF: 1 Hold Instructions: Hold for 3 days and resume 40 mg daily. Discontinued omeprazole 40 MG capsule,delayed release(DR/EC) 40 mg PO DAILY RF: 0 colchicine 0.6 MG capsule 0.6 mg PO PRN PRN (Reason: gout) RF: 0 metformin 500 MG tablet 500 mg PO BID Qty: 60 RF: 0 spironolactone 25 MG tablet 25 mg PO DAILY Qty: 30 RF: 0 Referrals / Follow Up: Rommel Arango MD [Primary Care Provider] - Within 2 Weeks Long Jovel MD [STAFF PHYSICIAN] - Within 1 Month (for heart failure, NSTEMI) Gisel Pacheco MD [STAFF PHYSICIAN] - Within 2 Weeks (FOR JULISSA on CKD stage 4. BMP in 1 week) Jong Alberto DO [STAFF PHYSICIAN] - Within 1 Month (for dysphagia/esophageal stenosis) Disposition Disposition (needs filled in before D/C Order can be placed): Home Health Service
--- NOTE | 2022-01-04 10:40 | PCM.DC.SUM ---
Providers Date of Admission: 01/01/22 Primary Care Physician: Dr. Rommel Arango MD Consultations 01/01/22 05:06 Consult: Cardiology Routine Consulting Provider: Ruba Brennan Reason for Consult: chest pain EMERGENT Consult: Yes MD Notified: Yes Date Notified: 01/01/22 Time Notified: 03:49 Method of Notification: Verbal 01/01/22 07:35 Consult: Nephrology Routine Consulting Provider: Gisel Pacheco Reason for Consult: JULISSA on CKD, Acute hyperkalmia. 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4 mg SUBLINGUAL Q5M PRN 06/05/19 polyethylene glycol 3350 17 g PO DAILY 06/05/19 simvastatin 20 mg PO QHS 06/05/19 methylcellulose (laxative) 850 g PO DAILY 06/29/19 allopurinol 300 mg tablet 300 mg PO DAILY tab 09/19/20 fluoxetine 40 mg capsule 40 cap PO DAILY 09/19/20 guaifenesin 600 mg tablet, extended release 12 hr 600 mg PO BID PRN 09/19/20 conjugated estrogens 0.625 mg VAGINAL MOWEFR 01/30/21 montelukast 10 mg PO DAILY 01/30/21 nystatin [Nystop] 1 applic TOPICAL BID 02/04/21 potassium chloride 40 meq PO BID 02/04/21 acetaminophen 1,000 mg PO Q6H PRN PRN tablet 02/16/21 fluticasone propionate 2 spray NASAL DAILY #1 02/16/21 menthol-zinc oxide 1 applic TOPICAL BID 12/29/21 furosemide [Lasix] 40 mg PO BID 30 Days #60 tab 12/30/21 isosorbide mononitrate 60 mg PO BID #0 tab 01/04/22 metoprolol succinate 25 mg PO DAILY #0 tab 01/04/22 pantoprazole [Protonix] 40 mg PO DAILY #30 tab 01/04/22 Weight / BMI Weight Weight: 173 lb 15.115 oz Body Mass Index (BMI) 29.0 ABG / Lab / Microbiology Data Result Diagrams: 01/04/22 03:50 01/04/22 03:50 Laboratory: Laboratory Results - last 24 hr 01/03/22 11:30: POC Glucose 204 H 01/03/22 15:28: POC Glucose 230 H 01/03/22 21:32: POC Glucose 188 H 01/04/22 03:50: WBC 11.1 H, RBC 3.81 L, Hgb 9.8 L, Hct 31.4 L, MCV 82.4, MCH 25.7 L, MCHC 31.2 L, RDW Std Deviation 54.4 H, RDW Coeff of Oscar 18.6 H, Plt Count 222, MPV 10.5, Immature Gran % (Auto) 0.500, Neut % (Auto) 76.5 H, Lymph % (Auto) 4.8 L, [place] % (Auto) 17.0 H, Eos % (Auto) 0.8, Baso % (Auto) 0.4, Absolute Neuts (auto) 8.5 H, Absolute Lymphs (auto) 0.53 L, Nucleated RBC % 2.4, Differential Comment SCANNED, Diff Path Review February01/04/22 03:50: Sodium 138, Potassium 3.9, Chloride 106, Carbon Dioxide 25.0, Anion Gap 7, BUN 83 H, Creatinine 1.72 H, Estim Creat Clear Calc 22.53, Est GFR (MDRD) Af Amer 37 L, Est GFR (MDRD) Non-Af 30 L, BUN/Creatinine Ratio 48.3 H, Glucose 129 H, Calcium 9.0 01/04/22 03:50: Magnesium 2.8 H D/C Instructions Discharge Diet: Low fat / Low cholesterol, 1800 Calorie Control Diet and 6 Cup Fluid Restriction Weight Bearing Status: Weight bearing as tolerated Call your doctor if you observe: Fever of 101 or Higher, Coldness, Increased Pain, Numbness or Tingling, Change in Color, Inability to urinate, Inability to have a bowel movement, Using more than 1 pad per hour, Shortness of breath, Dizziness, Fainting spells, Swelling in the ankles, Chest pain, Prolonged hiccupping, Increased palpitations (irregular heartbeat), Calf discomfort and Uncontrolled pain Discharge Plan Admission Admit Date/Time: 01/01/22 03:40 Primary Reason for Your Visit: Acute on chronic combined heart failure, acute kidney injury and CKD G4, Attending Provider: Ryley Tucker Primary Care Provider: Rommel Arango Consulting Providers: Ruba Brennan ; Gisel Pacheco Discharge Orders/Prescriptions Prescriptions: New pantoprazole [Protonix] 40 mg tablet,delayed release (DR/EC) 40 mg PO DAILY Qty: 30 RF: 2 Continued allopurinol 300 mg tablet 300 mg PO DAILY RF: 0 fluoxetine 40 mg capsule 40 cap PO DAILY RF: 0 guaifenesin [Mucinex] 600 mg tablet extended release 12hr 600 mg PO BID PRN (Reason: Cough) RF: 0 albuterol sulfate 2.5 MG/3 ML solution for nebulization 2.5 mg inhalation TID RF: 0 levothyroxine 75 MCG tablet 75 mcg PO DAILY RF: 0 simvastatin 20 MG tablet 20 mg PO QHS RF: 0 nitroglycerin 0.4 MG tablet, sublingual 0.4 mg sublingual Q5M PRN (Reason: Chest Pain) RF: 0 aspirin 81 MG tablet,chewable 81 mg PO DAILY@0800 RF: 0 folic acid 1 MG tablet 1 mg PO DAILY RF: 0 polyethylene glycol 3350 17 GM packet 17 g PO DAILY RF: 0 methylcellulose (laxative) 479 GM powder 850 g PO DAILY RF: 0 conjugated estrogens 0.625 MG tablet 0.625 mg vaginal MOWEFR RF: 0 montelukast 10 MG tablet 10 mg PO DAILY RF: 0 potassium chloride 20 MEQ tablet 40 meq PO BID RF: 0 nystatin [Nystop] 1 APPLIC bottle 1 applic TOPICAL BID RF: 0 acetaminophen 500 MG tablet 1,000 mg PO Q6H PRN PRN (Reason: Pain Score 1-10) RF: 0 fluticasone propionate 1 SPRAY spray,suspension 2 spray NASAL DAILY Qty: 1 RF: 0 menthol-zinc oxide 1 APPLIC ointment 1 applic TOPICAL BID RF: 0 isosorbide mononitrate 60 MG tablet 60 mg PO BID Qty: 0 RF: 0 metoprolol succinate 25 MG tablet extended release 24 hr 25 mg PO DAILY Qty: 0 RF: 0 Held furosemide [Lasix] 40 mg tablet 40 mg PO BID 30 Days Qty: 60 RF: 1 Hold Instructions: Hold for 3 days and resume 40 mg daily. Discontinued omeprazole 40 MG capsule,delayed release(DR/EC) 40 mg PO DAILY RF: 0 colchicine 0.6 MG capsule 0.6 mg PO PRN PRN (Reason: gout) RF: 0 metformin 500 MG tablet 500 mg PO BID Qty: 60 RF: 0 spironolactone 25 MG tablet 25 mg PO DAILY Qty: 30 RF: 0 Referrals / Follow Up: Rommel Arango MD [Primary Care Provider] - Within 2 Weeks Long Jovel MD [STAFF PHYSICIAN] - Within 1 Month (for heart failure, NSTEMI) Gisel Pacheco MD [STAFF PHYSICIAN] - Within 2 Weeks (FOR JULISSA on CKD stage 4. BMP in 1 week) Jong Alberto DO [STAFF PHYSICIAN] - Within 1 Month (for dysphagia/esophageal stenosis) Disposition Disposition (needs filled in before D/C Order can be placed): Home Health Service
[2022-01-04] MEDS: Insulin Lispro 100 UNIT/ML INSULN.PEN SC ×3 (11:15→20:55)
[2022-01-04] MEDS: Acetaminophen 500 MG Tablet 1000 MG PO (11:15)
--- NOTE | 2022-01-04 11:45 | CASEMGMT ---
Addendum entered by Brenda Hyatt 01/04/22 14:23: 1300 Vanessa from Palliative here to speak with pt/daughter to have them sign papers. Jerome PAREDES CM Original Note: This RN CM to room to discuss d/c plan with pt/daughter. Daughter aware of HHC resumption and PT/OT/ST added, voices understanding. Daughter states they would like to sign with palliative as soon as possible and this RN CM advises will call palliative. Daughter is anxious about d/c today and states would like to speak with Dr. Tucker regarding prognosis and plan. Daughter also states she will need to wait until later today to take pt home so that she has help going into home. Daughter is unsure of need for hospital bed at this time. CM to follow. Dr. Tucker into room. Jerome PAREDES CM
--- NOTE | 2022-01-04 12:10 | RAD_ITS ---
STUDY: X-RAY CHEST REASON FOR EXAM: Female, 81 years old. Sob, pulmonary edema TECHNIQUE: Single AP portable view of the chest. COMPARISON: 01/01/2022 FINDINGS: EKG leads overlie the chest. Lungs are underexpanded with chronic interstitial changes but no superimposed process or significant interval change. Sternal cerclage wires and vascular clips are present from a prior sternotomy and coronary artery bypass graft procedure (CABG). Normal mediastinum and winifred. Normal visualized pulmonary arteries. Normal visualized aortic arch and descending thoracic aorta. There are diffuse degenerative changes of the visualized thoracic spine. There is degenerative osteoarthritis of the bilateral shoulders. There is no demonstrated abnormality of the visualized soft tissue structures of the upper abdomen. RAD/Chest 1 View (Portable) IMPRESSION: No interval change Electronically Signed: Albaro Lira MD at 16:13 EST ,
--- NOTE | 2022-01-04 12:12 | PN.HOSP_ITS ---
Subjective Subjective Patient is more short of breath, blood pressure on lower side, systolic 90s. Pulse ox 94% on room air. Not tachypneic. Objective Data Objective Data Vital Signs: Vital Signs Temp Pulse Resp BP Pulse Ox 98.5 F 66 16 99/45 L 94 01/04/22 10:10 01/04/22 10:10 01/04/22 10:10 01/04/22 10:10 01/04/22 10:10 Oxygen Flow Rate (L/min) 2 Oxygen Delivery Method Room Air Weight: 173 lb 15.115 oz Body Mass Index (BMI) 29.0 Intake & Output: Intake and Output for Last 24 Hours 01/02/22 01/03/22 01/04/22 23:59 23:59 23:59 Intake Total 110 / 110 843.5 / 843.5 350 / 350 Output Total 800 / 1000 675 / 675 150 / 150 Balance -690 / -890 168.5 / 168.5 200 / 200 Lab / Micro Data Result Diagrams: 01/04/22 03:50 01/04/22 03:50 Labs: Laboratory Results - last 24 hr 01/03/22 15:28: POC Glucose 230 H 01/03/22 21:32: POC Glucose 188 H 01/04/22 03:50: WBC 11.1 H, RBC 3.81 L, Hgb 9.8 L, Hct 31.4 L, MCV 82.4, MCH 25.7 L, MCHC 31.2 L, RDW Std Deviation 54.4 H, RDW Coeff of Oscar 18.6 H, Plt Count 222, MPV 10.5, Immature Gran % (Auto) 0.500, Neut % (Auto) 76.5 H, Lymph % (Auto) 4.8 L, [place] % (Auto) 17.0 H, Eos % (Auto) 0.8, Baso % (Auto) 0.4, Absolute Neuts (auto) 8.5 H, Absolute Lymphs (auto) 0.53 L, Nucleated RBC % 2.4, Differential Comment SCANNED, Diff Path Review February01/04/22 03:50: Sodium 138, Potassium 3.9, Chloride 106, Carbon Dioxide 25.0, Anion Gap 7, BUN 83 H, Creatinine 1.72 H, Estim Creat Clear Calc 22.53, Est GFR (MDRD) Af Amer 37 L, Est GFR (MDRD) Non-Af 30 L, BUN/Creatinine Ratio 48.3 H, Glucose 129 H, Calcium 9.0 01/04/22 03:50: Magnesium 2.8 H Physical Exam Narrative Seen and examined. Patient having swelling of legs and more short of breath after stopping Lasix yesterday. General: Awake, Oriented x3, Cooperative HEENT: Atraumatic, PERRLA, EOMI, Normocephalic Oral: No Gingival or Mucosal Lesions/ Ulcerations Neck: Supple, No JVD, Negative Carotid Bruits Lungs: Air entry diminished in bilateral lung bases. Bilateral lung crepitations. Cardiovascular: Sinus rhythm with PVCs, Normal S1, Normal S2, systolic murmur LLSB Abdomen: Bowel Sounds Present, Soft, Non Tender, Non-Distended : No renal angle tenderness. No suprapubic tenderness. Extremities: Bilateral pitting leg edema, Capillary Refill Less than 3 Seconds Skin: No rashes, No breakdown Musculoskeletal: No Tenderness to Palpation of Joints or Extremities Neurological: Cranial nerves II-XII grossly intact, DTR 2+/4 and Symmetrical, Neuro grossly intact Psych/Mental Status: Flat affect. Assessment & Plan Assessment/Plan (1) Acute heart failure with preserved ejection fraction (HFpEF): (2) Hyperkalemia: (3) JULISSA (acute kidney injury): PLAN: 1. Atypical chest pain, non-STEMI: Patient is being admitted in ICU. Patient had elevated troponin during previous admission on 12/29. This time first high-sensitivity troponin 393 and subsequent trending down. Patient seen by medical information officer. Currently chest pain has resolved. Shortness of breath is improved. Detailed history for difficult because of severe hearing impairment. 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 In July 2015 she had PCI with BMS to ostial and proximal RCA. Director Regulatory Compliance recommended conservative medical therapy. 01/02 no further chest pain or shortness of breath. 2. Acute on chronic systolic and diastolic combined heart failure: Patient does not have leg swelling but has coarse crepitation in lung bases along with elevated BNP. Recent echo in 2018 shows EF 35 to 40% and moderate aortic stenosis. 2D echo done on 01/01 shows EF 25%, moderate to severe global hypokinesis of LV, stage III diastolic dysfunction moderate aortic valve calcification, mean AV gradient 16 mmHg. Compared to previous echo EF has worsened. 01/02 on Lasix 20 mg IV twice daily. Normocytic normochromic anemia H&H is stable. Platelet count normal. 01/03: Lasix discontinued because of worsening creatinine. Patient does not have leg swelling. Shortness of breath is improved. Metoprolol succinate resumed. Metoprolol 5 mg IV every 6 hourly. For heart rate more than 120 per night. 01/04: Patient is mild short of breath. Lasix 20 mg IV 1 dose if systolic blood pressure more than 100 mmHg. Chest x-ray portable ordered. I had detailed discussion with patient's daughter. I told her there was a compromise of kidney function with diuretics to help her breathing and control heart failure symptoms 3. 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 Patient is currently n.p.o. therefore no Kayexalate. Seen by retail district manager. Hyperkalemia due to spironolactone and potassium supplement. Patient has Wilcox catheter in draining clear urine. 01/02: Patient potassium is normal. 01/03: Nephrology follow-up appreciated. Monitor kidney function and electrolytes. Creatinine worsening 01/04: Creatinine slightly improved after holding Lasix. Discussed with the retail district manager. Lasix as needed with continued monitoring of electrolytes and kidney function 4. Right Heel wound and sacral ulcer, present on admission: She follows wound center last seen on 12/14/2021. Her right heel grew Pseudomonas was completed Cipro for 7 days. After that she also was on Augmentin. Leukocytosis improving. Wound care consult 01/02: Wound nurse note reviewed. Patient had healed right heel pressure injury. There is thin callus noted. No open area. Sacrococcygeal region pressure injury 0.3 x 0.4 x 0.6 cm stage III with red granulation pink tissue. Dressing done by wound nurse. 5. Diabetes mellitus type 2: Hold Metformin and oral hypoglycemic agents. Accu-Cheks and cover regimen of sliding scale. 01/04: Lantus increased to 8 units daily 6. Esophageal dysphagia with possible oropharyngeal dysphagia: Discussed with GI. Will evaluate the patient for possible EGD with esophageal dilatation if needed. I also talked regarding PEG tube with the patient's daughter and said risk of aspiration will be similar after PEG tube. Earlier patient was planned for barium esophagogram which was canceled because of the risk of aspiration. Discussed with the speech therapist in detail and plan for modified barium swallow/videofluoroscopy. 01/03: Patient had EGD. Laryngeal edema. Extrinsic compression of upper third of esophagus. Benign appearing esophageal stenosis dilated. Erythematous mucosa of the stomach. Patient modified barium swallow. Diet resumed under supervision as directed by speech therapist. 7. Hypothyroidism hold oral Synthroid. Patient is n.p.o. 8. GERD on PPI 9. Anxiety/depression. Overall Prozac on hold. Patient seen by palliative care. 10 DVT: Heparin 5000 subcutaneous every 8 hourly. Patient has worsening of bruises over both upper extremities. Hold heparin subcu tonight. Heparin subcu frequency increased to every 12 hours starting from tomorrow. Discontinue if platelet count drops less than 50,000 or hemoglobin less than 8 g% I had detailed discussion with patient's daughter, Mrs. Shawna Leggett regarding multiple comorbidities which are advanced including heart failure, anginal symptoms, non-STEMI, kidney failure, esophageal stenosis and dysphagia. She is also functionally very weak and compromised transfer from chair to bed. She agreed for evaluation for SNF for short time. I also gave her option for hospice although palliative care is following. She said her sisters are out of state and she will talk when they are back. I discussed with the case management social workerchannel program manager worker. Discussed with the retail district manager and he will talk to patient's daughter. Total time of the visit including total time spent in counseling or coordination of care, (more than 50% of the total time, spent in obtaining medical information from nurses and other ancillary care providers,explaining to the patient and her daughter near the bedside about labs, imaging, diagnosis and management), calling and discussion with retail district manager, medical information officer, GI, wound nurse, patient's daughter review of labs and imaging is 40 minutes. Charges/Coding Visit Charges Inpatient E&M: 35252 Subs Hosp L3
[2022-01-04] MEDS: Furosemide 20 MG/2 ML VIAL IV (12:26)
--- NOTE | 2022-01-04 12:30 | NURSING ---
Dr. Tucker at bedside to talk with patient's daughter. Patient's daughter has concerns about patient not eating and not voiding. Patient was incontinent over night and unable know full output, explained that to patient and Dr. Tucker. Dr. Tucker asked nursing to straight cath patient. Nursing will straight cath patient x1.
--- NOTE | 2022-01-04 13:05 | CASEMGMT ---
EMMY was informed by physician that patient's family agreed to [facility] for patient. EMMY met with patient's daughter, Shawna. Shawna said they wanted patient to go to TCU. SW told her SW will check on bed availability. EMMY spoke with [facility] and they do not have any beds available. SW let Shawna know this information. Sahwna was communicating back and forth with her sister who are currently in [place] via texting. SW provided a list of SNF providers including quality and resource use data and consistent with the patient?s preferred geographic region, medical needs, and insurance network. EMMY let Shawna know that [facility] does not have any beds available. SW will check back with her in a bit. Jen Lechuga PLUGGING MACHINE OPERATOR LEILANI
[2022-01-04 13:30] LABS: Pathologist Review Reviewed
--- NOTE | 2022-01-04 14:21 | CASEMGMT ---
EMMY went back to patient's room and Vanessa from Palliative Care was talking with Shawna. She was just finishing up. Vanessa did talk with patient's daughter Kala and family did sign patient up for Palliative Care. Shawna said Kala wants EMMY to call her to discuss next step. EMMY called Kala. Kala said patient is not ready for discharge and the hospital is just kicking her out. They need a safe discharge plan. Steff wants patient to go to TCU. EMMY let Kala know TCU is full. Per TCU admissions there will not be another open bed until the 14 of January. This could change, but at this point that is status. Kala wants patient to stay in the hospital until Friday so they can work on deciding on which facility. Steff also went on to say she really does not care for any of the nursing homes as everyone is short staffed. EMMY told her when the patient is discharged is up to the physician. EMMY let Steff know that EMMY left the list of SNF's in patient's room with their sister. EMMY then asked if Steff will call EMMY back or if EMMY should check with Shawna. Steff said they will talk with Shawna. Plan: SNF? pending family choosing a facility. Jen Lechuga GROVE SUPERINTENDENT LEILANI
--- NOTE | 2022-01-04 15:53 | CASEMGMT ---
EMMY went back to patient's room to check in with patient and her daughter Shawna. Family does not feel patient is medically stable enough to discharge. They want her stabilized more. EMMY listened to Shawna's concerns and provided emotional support. Shawna was asking about hospital bed. EMMY let her know EMMY will let [facility] know that she was asking about it. EMMY told Shawna if patient is still here Friday EMMY and REGGIE QUEVEDO will follow up. Jen Lechuga DRESS OPERATOR LEILANI
[2022-01-04 16:20] LABS: Bedside Glucose 150 mg/dL (74-106)
[2022-01-04 16:56] LABS: Bedside Glucose 221 mg/dL (74-106)
--- NOTE | 2022-01-04 18:41 | PN_ITS ---
Subjective Subjective She underwent an upper endoscopy yesterday. She was discovered to have a lot of mucus in the back of her throat. She was going to be discharged today however she developed worsening shortness of breath. She is currently being treated for her shortness of breath. She did undergo swallowing test today. Objective Data Objective Data Vital Signs: Vital Signs Temp Pulse Resp BP Pulse Ox 97.6 F L 82 13 101/50 L 92 01/04/22 15:40 01/04/22 15:40 01/04/22 15:40 01/04/22 15:40 01/04/22 15:42 Oxygen Flow Rate (L/min) 2 Oxygen Delivery Method Room Air Weight: 173 lb 15.115 oz Body Mass Index (BMI) 29.0 Intake & Output: Intake and Output for Last 24 Hours 01/02/22 01/03/22 01/04/22 23:59 23:59 23:59 Intake Total 110 / 110 843.5 / 843.5 650 / 650 Output Total 800 / 1000 675 / 675 350 / 350 Balance -690 / -890 168.5 / 168.5 300 / 300 Lab / Micro Data Result Diagrams: 01/04/22 03:50 01/04/22 03:50 Labs: Laboratory Results - last 24 hr 01/03/22 21:32: POC Glucose 188 H 01/04/22 03:50: WBC 11.1 H, RBC 3.81 L, Hgb 9.8 L, Hct 31.4 L, MCV 82.4, MCH 25.7 L, MCHC 31.2 L, RDW Std Deviation 54.4 H, RDW Coeff of Oscar 18.6 H, Plt Count 222, MPV 10.5, Immature Gran % (Auto) 0.500, Neut % (Auto) 76.5 H, Lymph % (Auto) 4.8 L, [place] % (Auto) 17.0 H, Eos % (Auto) 0.8, Baso % (Auto) 0.4, Absol [place] Neuts (auto) 8.5 H, Absolute Lymphs (auto) 0.53 L, Nucleated RBC % 2.4, Differential Comment SCANNED, Diff Path Review Reviewed 01/04/22 03:50: Sodium 138, Potassium 3.9, Chloride 106, Carbon Dioxide 25.0, Anion Gap 7, BUN 83 H, Creatinine 1.72 H, Estim Creat Clear Calc 22.53, Est GFR (MDRD) Af Amer 37 L, Est GFR (MDRD) Non-Af 30 L, BUN/Creatinine Ratio 48.3 H, Glucose 129 H, Calcium 9.0 01/04/22 03:50: Magnesium 2.8 H 01/04/22 03:50: Phosphorus 3.0 01/04/22 11:14: POC Glucose 150 H 01/04/22 16:46: POC Glucose 221 H Radiography Diagnostic Testing: Radiology Impression Chest X-Ray 01/04/22 12:10 IMPRESSION: No interval change Electronically Signed: Albaro Lira MD at 16:13 EST , Physical Exam Const alert General Appearance: cooperative Orientation / Consciousness: oriented to person HEENT hearing grossly normal bilaterally Head and Scalp: normal to inspection Face and Sinus: face symmetric Nose: external nose normal Mouth: oral and palatal mucosa normal Eyes conjunctivae normal General Eye: normal appearance of both eyes Neck full ROM General: normal visual inspection Lymph Lymphatic: no lymphadenopathy noted Chest inspection of chest normal and palpation of chest normal Chest: symmetrical chest wall rise Resp normal respiratory effort Effort and Inspection: able to speak in complete sentences Cardio regular rate GI non-distended Percussion: normal to percussion Rectal Exam: deferred Neuro Speech: speech normal Gait (Neuro): normal gait Assessment & Plan Assessment/Plan (1) Cough: PLAN: I had a long talk with her daughter regarding the mucus that is in the back of her throat. She did have a lot of mucus that came out today while she was eating. I will give her Mucomyst inhaled and Guanifesin to hopefully loosen up some of the mucus that she is experiencing. (2) Dysphagia: PLAN: She was discovered to have extrinsic compression secondary to an enlarged left atrium in her esophagus along with an esophageal stricture at the proximal portion of the esophagus. She underwent esophageal dilation. And she did pass her swallowing test and is able to consume foods by mouth. She will be monitored for aspiration. Charges/Coding Visit Charges Inpatient E&M: 51941 Subs Hosp L2
[2022-01-04] MEDS: guaiFENesin 10 ML UDC (200MG/10ML) PO ×2 (19:20→23:35)
[2022-01-04] MEDS: Atorvastatin Calcium 10 MG Tablet PO (20:56)
[2022-01-04 21:11] LABS: Bedside Glucose 159 mg/dL (74-106)
[2022-01-04] MEDS: Acetylcysteine 800 MG/4 ML VIAL.NEB. INHALATION (22:24)
[2022-01-05] VITALS (15 sets, daily range): BP systolic 100–102; BP diastolic 49–62; PULSE 77–99; RESP 16–22; TEMP 36.5–36.6; O2SAT 88–100
[2022-01-05 05:17] LABS: Absolute Lymphocyte Count 0.34 X10^3/uL (0.83-4.51); Absolute Neutrophil Count 8.4 X10^3/uL (2.0-7.7); Basophil# 0.03 X10^3/uL; Basophil% 0.3 % (0-1); Eosinophil# 0.27 X10^3/uL; Eosinophils% 2.5 % (0-5); Hematocrit 30.7 % (37-47); Hemoglobin 9.4 g/dL (12.0-15.0); Lymphocyte # 0.34 X10^3/ul (0.83-4.51); Lymphocyte % 3.1 % (19-41); Mean Corp Hgb Conc 30.6 g/dL (32-36); Mean Corpuscular Hgb 25.1 pg (27.0-32.0); Mean Corpuscular Volume 81.9 fL (81-99); Mean Platelet Vol. 10.6 fl (6.2-12.0); Monocyte# 1.75 X10^3/uL; Monocyte% 16.2 % (0-10); NRBC Flagged by Analyzer 2.9 % (0-5); Neutrophil # 8.37 X10^3/uL (2.7-7.7); Neutrophil % 77.4 % (47-70); POSITIVE DIFFERENTIAL YES; Platelet Count 198 K/mm3 (150-450); RBC Distribution Width CV 18.6 % (11.6-14.6); Red Blood Count 3.75 M/mm3 (4.2-5.4); White Blood Count 10.8 K/mm3 (4.4-11.0)
[2022-01-05 05:37] LABS: Differential Indicated SCAN CRITERIA MET
[2022-01-05 05:38] LABS: Anion Gap 6 (5-15); BUN 90 mg/dL (7-18); BUN/Creat Ratio 49.7 RATIO (10-20); Calcium,Total 8.8 mg/dL (8.5-10.1); Chloride 106 mmol/L (98-107); Creatinine, Serum 1.81 mg/dL (0.55-1.02); EST Glomerular Filtration Rate 29 mL/min (>60); Est Glom Filt Rate - Afr Amer 35 mL/min (>60); Estimated Creatinine Clearance 21.41 ml/min; Glucose 190 mg/dL (74-106); Potassium 3.9 mmol/L (3.5-5.1); Sodium Level 137 mmol/L (136-145)
[2022-01-05 06:28] LABS: Differential Comment SCANNED
[2022-01-05] MEDS: Levothyroxine 75 MCG Tablet PO (06:34)
[2022-01-05] MEDS: Insulin Lispro 100 UNIT/ML INSULN.PEN SC ×4 (06:36→20:37)
[2022-01-05 06:41] LABS: Bedside Glucose 178 mg/dL (74-106)
[2022-01-05] MEDS: Acetylcysteine 800 MG/4 ML VIAL.NEB. INHALATION ×3 (07:29→19:32)
[2022-01-05] MEDS: Albuterol 2.5 MG/3 ML VIAL.NEB. INHALATION ×4 (07:29→19:32)
[2022-01-05] MEDS: Aspirin 81 MG TAB.CHEW PO (08:24)
[2022-01-05] MEDS: Montelukast 10 MG Tablet PO (08:24)
[2022-01-05] MEDS: Folic Acid 1 MG Tablet PO (08:24)
[2022-01-05] MEDS: Heparin Injection (Vial) 5,000 UNIT/ML VIAL 5000 UNIT SC ×2 (08:24→20:37)
[2022-01-05] MEDS: FLUoxetine 20 MG Capsule 40 MG PO (08:24)
[2022-01-05] MEDS: Fluticasone 0.05% 1 SPRAY NASAL.SRY 2 SPRAY NASAL (08:25)
[2022-01-05] MEDS: Allopurinol 300 MG Tablet PO (08:27)
--- NOTE | 2022-01-05 11:43 | PN.RENAL_ITS ---
Subjective Subjective Following for JULISSA on CKD. The patient is complaining of cough. However, her shortness of breath is not any worse than before. There is no chest pain, nausea, or vomiting. There is no diarrhea. Appetite is marginal. Objective Data Objective Data Vital Signs: Vital Signs Temp Pulse Resp BP Pulse Ox 97.9 F 81 16 100/62 95 01/05/22 08:13 01/05/22 08:13 01/05/22 08:13 01/05/22 08:13 01/05/22 08:40 Oxygen Flow Rate (L/min) 2 Oxygen Delivery Method Nasal Cannula Weight: 78.9 kg Body Mass Index (BMI) 29.0 Intake & Output: Intake and Output for Last 24 Hours 01/03/22 01/04/22 01/05/22 23:59 23:59 23:59 Intake Total 843.5 / 843.5 700 / 700 120 / 120 Output Total 675 / 675 350 / 350 Balance 168.5 / 168.5 350 / 350 120 / 120 Lab / Micro Data Result Diagrams: 01/05/22 04:57 01/05/22 04:57 Labs: Laboratory Results - last 24 hr 01/04/22 03:50: Diff Path Review Reviewed 01/04/22 03:50: Phosphorus 3.0 01/04/22 11:14: POC Glucose 150 H 01/04/22 16:46: POC Glucose 221 H 01/04/22 20:54: POC Glucose 159 H 01/05/22 04:57: Sodium 137, Potassium 3.9, Chloride 106, Carbon Dioxide 25.0, Anion Gap 6, BUN 90 H, Creatinine 1.81 H, Estim Creat Clear Calc 21.41, Est GFR (MDRD) Af Amer 35 L, Est GFR (MDRD) Non-Af 29 L, BUN/Creatinine Ratio 49.7 H, Glucose 190 H, Calcium 8.8 01/05/22 04:57: WBC 10.8, RBC 3.75 L, Hgb 9.4 L, Hct 30.7 L, MCV 81.9, MCH 25.1 L, MCHC 30.6 L, RDW Std Deviation 55.0 H, RDW Coeff of Oscar 18.6 H, Plt Count 198, MPV 10.6, Immature Gran % (Auto) 0.500, Neut % (Auto) 77.4 H, Lymph % (Auto) 3.1 L, [place] % (Auto) 16.2 H, Eos % (Auto) 2.5, Baso % (Auto) 0.3, Absolute Neuts (auto) 8.4 H, Absolute Lymphs (auto) 0.34 L, Nucleated RBC % 2.9, Differential Comment SCANNED 01/05/22 06:35: POC Glucose 178 H Radiography Diagnostic Testing: Radiology Impression Chest X-Ray 01/04/22 12:10 IMPRESSION: No interval change Electronically Signed: Albaro Lira MD at 16:13 EST , Physical Exam Narrative Const: A&Ox3, QAWALANGIN Cardio: S1 S2 RRR Resp: Mild crackles in the lungs base bilaterally, no wheezes Extremities: No pitting edema : Wilcox out, has pure wick Assessment & Plan Assessment/Plan (1) Acute heart failure with preserved ejection fraction (HFpEF): (2) Hyperkalemia: PLAN: K better, off IV lasix. K+ peaked 6.6, today 3.9. Recommend to keep off aldactone at discharge (3) JULISSA (acute kidney injury): PLAN: -She was recently admitted with congestive heart failure. Serum creatinine fluctuates between 1.3-1.5mg/dL with several variations. Currently creatinine is around 1.6-1.8mg/dL since admission. She was sent home on spironolactone after the last admission and potassium supplements which is likely cause of hyperkalemia. -Renal function is stable with some expected fluctuation. There is no acute indication for [employer]. -Today creatinine is 1.81 mg/dL. -Scheduled Lasix was stopped on 01/03/2022 (Scr was 1.88mg/dL on 01/03/2022). -Ok to remain off diuretic for now. Volume status is acceptable. -Bps acceptable on metoprolol. - GI consulted for dysphagia, had EGD with dilatation of esophagus - palliative care team consulted, note reviewed - discharge planning in progress, discussed with Dr. Tucker.
[2022-01-05 12:36] LABS: Bedside Glucose 219 mg/dL (74-106)
--- NOTE | 2022-01-05 13:32 | CASEMGMT ---
Addendum entered by Brenda Hyatt 01/05/22 14:52: [facility] aware of probable d/c 01/07/22 and to call daughter, Parul, with any questions/concerns. Parul, daughter, updated, voices understanding. Jerome PAREDES CM Addendum entered by Brenad Hyatt 01/05/22 14:15: Script obtained for hospital bed and faxed to [facility] [place] preparation for pt d/c on 01/07/22. Jerome PAREDES CM Original Note: This RN CM called to room by pt's daughter, Parul, and she states the plan is now to take pt home with HHC and a hospital bed. Daughter states she feels that Hospice is appropriate but other family and pt are not on board yet. Daughter states they would like bed set up thru [facility]. Pt/daughter state they would like semi-electric bed at this time as they were explained to both by Rachael Bustamante RN, CM previously. Dr. Tucker updated. CM to follow. Jerome PAREDES CM
[2022-01-05] MEDS: Metoprolol(XL)Succ 25 MG Tablet PO (13:36)
--- NOTE | 2022-01-05 16:12 | CPS ---
discussed cough syrup with family. explained that we dont want to supress patient's cough while giving the mucomyst. it is important for her to be able to cough up secretions while taking that medicine.
--- NOTE | 2022-01-05 16:14 | PCM.PN.HOSP ---
Subjective Subjective Follow-up for heart failure, acute kidney injury on CKD and multiple issues Patient's daughter has concerned about her nutritional status that she is not being fed as supposed to be. Discussed with the drug regulatory affairs specialist, nurse and patient's daughter in the bedroom. Patient intermittently short of breath. Objective Data Objective Data Vital Signs: Vital Signs Temp Pulse Resp BP Pulse Ox 97.9 F 81 18 101/49 L 95 01/05/22 12:15 01/05/22 16:11 01/05/22 16:11 01/05/22 13:36 01/05/22 13:12 Oxygen Flow Rate (L/min) 2.5 Oxygen Delivery Method Nasal Cannula Weight: 173 lb 15.115 oz Body Mass Index (BMI) 29.0 Intake & Output: Intake and Output for Last 24 Hours 01/03/22 01/04/22 01/05/22 23:59 23:59 23:59 Intake Total 843.5 / 843.5 700 / 700 470 / 470 Output Total 675 / 675 350 / 350 Balance 168.5 / 168.5 350 / 350 470 / 470 Lab / Micro Data Result Diagrams: 01/05/22 04:57 01/05/22 04:57 Labs: Laboratory Results - last 24 hr 01/04/22 11:14: POC Glucose 150 H 01/04/22 16:46: POC Glucose 221 H 01/04/22 20:54: POC Glucose 159 H 01/05/22 04:57: Sodium 137, Potassium 3.9, Chloride 106, Carbon Dioxide 25.0, Anion Gap 6, BUN 90 H, Creatinine 1.81 H, Estim Creat Clear Calc 21.41, Est GFR (MDRD) Af Amer 35 L, Est GFR (MDRD) Non-Af 29 L, BUN/Creatinine Ratio 49.7 H, Glucose 190 H, Calcium 8.8 01/05/22 04:57: WBC 10.8, RBC 3.75 L, Hgb 9.4 L, Hct 30.7 L, MCV 81.9, MCH 25.1 L, MCHC 30.6 L, RDW Std Deviation 55.0 H, RDW Coeff of Oscar 18.6 H, Plt Count 198, MPV 10.6, Immature Gran % (Auto) 0.500, Neut % (Auto) 77.4 H, Lymph % (Auto) 3.1 L, [place] % (Auto) 16.2 H, Eos % (Auto) 2.5, Baso % (Auto) 0.3, Absolute Neuts (auto) 8.4 H, Absolute Lymphs (auto) 0.34 L, Nucleated RBC % 2.9, Differential Comment SCANNED 01/05/22 06:35: POC Glucose 178 H 01/05/22 12:22: POC Glucose 219 H Radiography Diagnostic Testing: Radiology Impression Chest X-Ray 01/04/22 12:10 IMPRESSION: No interval change Electronically Signed: Albaro Lira MD at 16:13 EST Reading Location ID and State: [facility] / [place] , Service support , Physical Exam Narrative Seen and examined. General: Awake, Oriented x3, Cooperative, intermittently and pleasantly confused. HEENT: Atraumatic, PERRLA, EOMI, Normocephalic Oral: No Gingival or Mucosal Lesions/ Ulcerations Neck: Supple, No JVD, Negative Carotid Bruits Lungs: Air entry diminished in bilateral lung bases. Bilateral lung coarse crepitation seems chronic, does not change with cough. Cardiovascular: Sinus rhythm with PVCs, Normal S1, Normal S2, systolic murmur LLSB Abdomen: Bowel Sounds Present, Soft, Non Tender, Non-Distended : No renal angle tenderness. No suprapubic tenderness. Extremities: Bilateral pitting leg edema, Capillary Refill Less than 3 Seconds Skin: No rashes, No breakdown Musculoskeletal: No Tenderness to Palpation of Joints or Extremities Neurological: Cranial nerves II-XII grossly intact, DTR 2+/4 and Symmetrical, Neuro grossly intact Psych/Mental Status: Flat affect. Assessment & Plan Assessment/Plan (1) Acute heart failure with preserved ejection fraction (HFpEF): (2) Hyperkalemia: (3) JULISSA (acute kidney injury): PLAN: 1. Atypical chest pain, non-STEMI: Patient is being admitted in ICU. Patient had elevated troponin during previous admission on 12/29. This time first high-sensitivity troponin 393 and subsequent trending down. Patient seen by clerical support specialist. Currently chest pain has resolved. Shortness of breath is improved. Detailed history for difficult because of severe hearing impairment. 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 In July 2015 she had PCI with BMS to ostial and proximal RCA. J2Ee Engineer recommended conservative medical therapy. 01/02 no further chest pain or shortness of breath. : Intermittently get short of breath. 2. Acute on chronic systolic and diastolic combined heart failure: Patient does not have leg swelling but has coarse crepitation in lung bases along with elevated BNP. Recent echo in 2018 shows EF 35 to 40% and moderate aortic stenosis. 2D echo done on 01/01 shows EF 25%, moderate to severe global hypokinesis of LV, stage III diastolic dysfunction moderate aortic valve calcification, mean AV gradient 16 mmHg. Compared to previous echo EF has worsened. 01/02 on Lasix 20 mg IV twice daily. Normocytic normochromic anemia H&H is stable. Platelet count normal. 01/03: Lasix discontinued because of worsening creatinine. Patient does not have leg swelling. Shortness of breath is improved. Metoprolol succinate resumed. Metoprolol 5 mg IV every 6 hourly. For heart rate more than 120 per night. 01/04: Patient is mild short of breath. Lasix 20 mg IV 1 dose if systolic blood pressure more than 100 mmHg. Chest x-ray portable ordered. I had detailed discussion with patient's daughter. I told her there was a compromise of kidney function with diuretics to help her breathing and control heart failure symptoms 01/05: Discussed with the patient relations specialist. He does not feel that the Lasix is a good idea at patient creatinine is increasing and patient chest x-ray shows improvement of pulmonary venous congestion. Discussed with her daughter. Continue metoprolol. 3. 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 Patient is currently n.p.o. therefore no Kayexalate. Seen by patient relations specialist. Hyperkalemia due to spironolactone and potassium supplement. Patient has Wilcox catheter in draining clear urine. 01/02: Patient potassium is normal. 01/03: Nephrology follow-up appreciated. Monitor kidney function and electrolytes. Creatinine worsening 01/04: Creatinine slightly improved after holding Lasix. Discussed with the patient relations specialist. Lasix as needed with continued monitoring of electrolytes and kidney function 01/05: Creatinine worsening. 4. Right Heel wound and sacral ulcer, present on admission: She follows wound center last seen on 12/14/2021. Her right heel grew Pseudomonas was completed Cipro for 7 days. After that she also was on Augmentin. Leukocytosis improving. Wound care consult 01/02: Wound nurse note reviewed. Patient had healed right heel pressure injury. There is thin callus noted. No open area. Sacrococcygeal region pressure injury 0.3 x 0.4 x 0.6 cm stage III with red granulation pink tissue. Dressing done by wound nurse. 5. Diabetes mellitus type 2: Hold Metformin and oral hypoglycemic agents. Accu-Cheks and cover regimen of sliding scale. 01/04: Lantus increased to 8 units daily 01/05: Patient oral intake is not adequate. On Ensure. Glucose varies between 1 6219. 6. Esophageal dysphagia with possible oropharyngeal dysphagia: Discussed with GI. Will evaluate the patient for possible EGD with esophageal dilatation if needed. I also talked regarding PEG tube with the patient's daughter and said risk of aspiration will be similar after PEG tube. Earlier patient was planned for barium esophagogram which was canceled because of the risk of aspiration. Discussed with the speech therapist in detail and plan for modified barium swallow/videofluoroscopy. 01/03: Patient had EGD. Laryngeal edema. Extrinsic compression of upper third of esophagus. Benign appearing esophageal stenosis dilated. Erythematous mucosa of the stomach. Patient modified barium swallow. Diet resumed under supervision as directed by speech therapist. 7. Hypothyroidism hold oral Synthroid. Patient is n.p.o. 8. GERD on PPI 9. Anxiety/depression. Overall Prozac on hold. Patient seen by palliative care. 10 DVT: Heparin 5000 subcutaneous every 8 hourly. Patient has worsening of bruises over both upper extremities. Hold heparin subcu tonight. Heparin subcu frequency increased to every 12 hours starting from tomorrow. Discontinue if platelet count drops less than 50,000 or hemoglobin less than 8 g% I had detailed discussion with patient's daughter, Mrs. Shawna Leggett regarding multiple comorbidities which are advanced including heart failure, anginal symptoms, non-STEMI, kidney failure, esophageal stenosis and dysphagia. She is also functionally very weak and compromised transfer from chair to bed. She agreed for evaluation for SNF for short time. I also gave her option for hospice although palliative care is following. She said her sisters are out of state and she will talk when they are back. I discussed with the case management specialisthealth spa manager worker. Discussed with the patient relations specialist and he will talk to patient's daughter. Total time of the visit including total time spent in counseling or coordination of care, (more than 50% of the total time, spent in obtaining medical information from nurses and other ancillary care providers,explaining to the patient and her daughter near the bedside about labs, imaging, diagnosis and management), calling and discussion with patient relations specialist, clerical support specialist, GI, wound nurse, patient's daughter review of labs and imaging is 40 minutes. Charges/Coding Visit Charges Inpatient E&M: 06751 Subs Hosp L3
[2022-01-05 16:20] LABS: Bedside Glucose 242 mg/dL (74-106)
[2022-01-05] MEDS: Acetaminophen 500 MG Tablet 1000 MG PO (17:59)
[2022-01-05] MEDS: Atorvastatin Calcium 10 MG Tablet PO ×2 (20:37)
[2022-01-05 21:21] LABS: Bedside Glucose 231 mg/dL (74-106)
[2022-01-06] VITALS (11 sets, daily range): BP systolic 100–103; BP diastolic 44–45; PULSE 76–88; RESP 16–19; TEMP 36.1–36.8; O2SAT 98–100
[2022-01-06] MEDS: Acetaminophen 500 MG Tablet 1000 MG PO ×2 (01:42→14:23)
[2022-01-06] MEDS: Levothyroxine 75 MCG Tablet PO (01:43)
[2022-01-06 06:26] LABS: Absolute Neutrophil Count 8.4 X10^3/uL (2.0-7.7); Basophil# 0.03 X10^3/uL; Basophil% 0.3 % (0-1); Eosinophil# 0.21 X10^3/uL; Eosinophils% 1.9 % (0-5); Hematocrit 29.8 % (37-47); Hemoglobin 9.1 g/dL (12.0-15.0); Lymphocyte % 4.5 % (19-41); Mean Corp Hgb Conc 30.5 g/dL (32-36); Mean Corpuscular Hgb 25.6 pg (27.0-32.0); Mean Corpuscular Volume 83.9 fL (81-99); Mean Platelet Vol. 11.1 fl (6.2-12.0); Monocyte# 1.77 X10^3/uL; Monocyte% 16.1 % (0-10); NRBC Flagged by Analyzer 2.1 % (0-5); Neutrophil # 8.42 X10^3/uL (2.7-7.7); Neutrophil % 76.5 % (47-70); POSITIVE DIFFERENTIAL YES; Platelet Count 193 K/mm3 (150-450); RBC Distribution Width CV 18.7 % (11.6-14.6); RBC Distribution Width SD 56.7 fl (35.1-43.9); Red Blood Count 3.55 M/mm3 (4.2-5.4)
[2022-01-06 06:32] LABS: Differential Indicated SCAN CRITERIA MET
[2022-01-06 06:50] LABS: Anion Gap 4 (5-15); BUN 89 mg/dL (7-18); BUN/Creat Ratio 48.9 RATIO (10-20); Calcium,Total 9.1 mg/dL (8.5-10.1); Chloride 105 mmol/L (98-107); Creatinine, Serum 1.82 mg/dL (0.55-1.02); EST Glomerular Filtration Rate 28 mL/min (>60); Est Glom Filt Rate - Afr Amer 34 mL/min (>60); Estimated Creatinine Clearance 21.29 ml/min; Glucose 172 mg/dL (74-106); Magnesium 2.6 mg/dL (1.6-2.6); Potassium 4.3 mmol/L (3.5-5.1); Sodium Level 136 mmol/L (136-145)
[2022-01-06 06:57] LABS: Phosphorus 2.6 mg/dL (2.5-4.9)
[2022-01-06] MEDS: Acetylcysteine 800 MG/4 ML VIAL.NEB. INHALATION ×3 (07:00→19:41)
[2022-01-06] MEDS: Albuterol 2.5 MG/3 ML VIAL.NEB. INHALATION ×3 (07:00→19:41)
[2022-01-06 07:09] LABS: Differential Comment SCANNED
[2022-01-06] MEDS: Montelukast 10 MG Tablet PO (08:01)
[2022-01-06] MEDS: FLUoxetine 20 MG Capsule 40 MG PO (08:01)
[2022-01-06] MEDS: Fluticasone 0.05% 1 SPRAY NASAL.SRY 2 SPRAY NASAL (08:02)
[2022-01-06] MEDS: Allopurinol 300 MG Tablet PO (08:02)
[2022-01-06] MEDS: Aspirin 81 MG TAB.CHEW PO (08:02)
[2022-01-06] MEDS: Heparin Injection (Vial) 5,000 UNIT/ML VIAL 5000 UNIT SC ×2 (08:02→22:18)
[2022-01-06] MEDS: Folic Acid 1 MG Tablet PO (08:02)
[2022-01-06] MEDS: Metoprolol(XL)Succ 25 MG Tablet PO (09:02)
--- NOTE | 2022-01-06 09:08 | PCM.PN.HOSP ---
Subjective Subjective Afebrile. Heart rate and blood pressure controlled. Blood pressure 100/45. The patient had short run of V. tach, PVCs 7 beats consistent with NSVT. Currently heart rate 78/min, sinus rhythm with PVCs on quality assurance monitor body. Patient states does not feel any difference in shortness of breath in last 2 to 3 days. She was on bed all the time yesterday. Get short of breath on movement. Denies cough or phlegm. Her daughter is concerned that patient has fever but no fever. Objective Data Objective Data Vital Signs: Vital Signs Temp Pulse Resp BP Pulse Ox 98.3 F 78 18 100/45 L 100 01/06/22 07:55 01/06/22 09:02 01/06/22 07:55 01/06/22 09:02 01/06/22 07:55 Oxygen Flow Rate (L/min) 2 Oxygen Delivery Method Nasal Cannula Weight: 173 lb 15.115 oz Body Mass Index (BMI) 29.0 Intake & Output: Intake and Output for Last 24 Hours 01/04/22 01/05/22 01/07/22 23:59 23:59 00:59 Intake Total 700 / 700 1040 / 1040 Output Total 350 / 350 100 / 100 Balance 350 / 350 1040 / 1040 -100 / -100 Lab / Micro Data Result Diagrams: 01/06/22 05:45 01/06/22 05:45 Labs: Laboratory Results - last 24 hr 01/05/22 12:22: POC Glucose 219 H 01/05/22 16:11: POC Glucose 242 H 01/05/22 20:36: POC Glucose 231 H 01/06/22 05:45: Sodium 136, Potassium 4.3, Chloride 105, Carbon Dioxide 27.0, Anion Gap 4 L, BUN 89 H, Creatinine 1.82 H, Estim Creat Clear Calc 21.29, Est GFR (MDRD) Af Amer 34 L, Est GFR (MDRD) Non-Af 28 L, BUN/Creatinine Ratio 48.9 H, Glucose 172 H, Calcium 9.1, Magnesium 2.6 01/06/22 05:45: WBC 11.0, RBC 3.55 L, Hgb 9.1 L, Hct 29.8 L, MCV 83.9, MCH 25.6 L, MCHC 30.5 L, RDW Std Deviation 56.7 H, RDW Coeff of Oscar 18.7 H, Plt Count 193, MPV 11.1, Immature Gran % (Auto) 0.700, Neut % (Auto) 76.5 H, Lymph % (Auto) 4.5 L, [place] % (Auto) 16.1 H, Eos % (Auto) 1.9, Baso % (Auto) 0.3, Absolute Neuts (auto) 8.4 H, Absolute Lymphs (auto) 0.50 L, Nucleated RBC % 2.1, Differential Comment SCANNED 01/06/22 05:45: Phosphorus 2.6 Physical Exam Narrative Seen and examined. General: Awake, Oriented x3, Cooperative, HEENT: Atraumatic, PERRLA, EOMI, Normocephalic Oral: No Gingival or Mucosal Lesions/ Ulcerations Neck: Supple, No JVD, Negative Carotid Bruits Lungs: Air entry diminished in bilateral lung bases. Bilateral lung coarse crepitation seems chronic, does not change with cough. Cardiovascular: Sinus rhythm with PVCs, Normal S1, Normal S2, systolic murmur LLSB. Intermittent short runs NSVT Abdomen: Bowel Sounds Present, Soft, Non Tender, Non-Distended : No renal angle tenderness. No suprapubic tenderness. Extremities: Bilateral pitting leg edema, Capillary Refill Less than 3 Seconds Skin: No rashes, No breakdown Musculoskeletal: No Tenderness to Palpation of Joints or Extremities Neurological: Cranial nerves II-XII grossly intact, DTR 2+/4 and Symmetrical, Neuro grossly intact Psych/Mental Status: Flat affect. Assessment & Plan Assessment/Plan (1) Acute heart failure with preserved ejection fraction (HFpEF): (2) Hyperkalemia: (3) JULISSA (acute kidney injury): PLAN: 1. Atypical chest pain, non-STEMI: Patient is being admitted in ICU. Patient had elevated troponin during previous admission on 12/29. This time first high-sensitivity troponin 393 and subsequent trending down. Patient seen by chemical compounder. Currently chest pain has resolved. Shortness of breath is improved. Detailed history for difficult because of severe hearing impairment. 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 In July 2015 she had PCI with BMS to ostial and proximal RCA. Security Control Room Officer recommended conservative medical therapy. 01/02 no further chest pain or shortness of breath. 01/05: Intermittently get short of breath. 01/06: No interval change in shortness of breath. Robitussin discontinued 2. Acute on chronic systolic and diastolic combined heart failure: Patient does not have leg swelling but has coarse crepitation in lung bases along with elevated BNP. Recent echo in 2019 shows EF 35 to 40% and moderate aortic stenosis. 2D echo done on 01/01 shows EF 25%, moderate to severe global hypokinesis of LV, stage III diastolic dysfunction moderate aortic valve calcification, mean AV gradient 16 mmHg. Compared to previous echo EF has worsened. 01/02 on Lasix 20 mg IV twice daily. Normocytic normochromic anemia H&H is stable. Platelet count normal. 01/03: Lasix discontinued because of worsening creatinine. Patient does not have leg swelling. Shortness of breath is improved. Metoprolol succinate resumed. Metoprolol 5 mg IV every 6 hourly. For heart rate more than 120 per night. 01/04: Patient is mild short of breath. Lasix 20 mg IV 1 dose if systolic blood pressure more than 100 mmHg. Chest x-ray portable ordered. I had detailed discussion with patient's daughter. I told her there was a compromise of kidney function with diuretics to help her breathing and control heart failure symptoms 01/05: Discussed with the log tumbler. He does not feel that the Lasix is a good idea at patient creatinine is increasing and patient chest x-ray shows improvement of pulmonary venous congestion. Discussed with her daughter. Continue metoprolol. 01/06: Creatinine 1.8 for last few days. Serum potassium magnesium and phosphorus in normal range. Highway Maintenance Technician advised to remain of diuretic. Volume status acceptable. 3. 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 Patient is currently n.p.o. therefore no Kayexalate. Seen by log tumbler. Hyperkalemia due to spironolactone and potassium supplement. Patient has Wilcox catheter in draining clear urine. 01/02: Patient potassium is normal. 01/03: Nephrology follow-up appreciated. Monitor kidney function and electrolytes. Creatinine worsening 01/04: Creatinine slightly improved after holding Lasix. Discussed with the log tumbler. Lasix as needed with continued monitoring of electrolytes and kidney function 01/06: Creatinine 1.88, 1.72, 1.81 and 1.8 to last 4 days 4. Right Heel wound and sacral ulcer, present on admission: She follows wound center last seen on 12/14/2021. Her right heel grew Pseudomonas was completed Cipro for 7 days. After that she also was on Augmentin. Leukocytosis improving. Wound care consult 01/02: Wound nurse note reviewed. Patient had healed right heel pressure injury. There is thin callus noted. No open area. Sacrococcygeal region pressure injury 0.3 x 0.4 x 0.6 cm stage III with red granulation pink tissue. Dressing done by wound nurse. 5. Diabetes mellitus type 2: Hold Metformin and oral hypoglycemic agents. Accu-Cheks and cover regimen of sliding scale. 01/04: Lantus increased to 8 units daily 01/05: Patient oral intake is not adequate. On Ensure. Glucose varies between 162-219. 01/06: Discussed with solar designer/installer. Glucose 162-231 6. Esophageal dysphagia with possible oropharyngeal dysphagia: Discussed with GI. Will evaluate the patient for possible EGD with esophageal dilatation if needed. I also talked regarding PEG tube with the patient's daughter and said risk of aspiration will be similar after PEG tube. Earlier patient was planned for barium esophagogram which was canceled because of the risk of aspiration. Discussed with the speech therapist in detail and plan for modified barium swallow/videofluoroscopy. 01/03: Patient had EGD. Laryngeal edema. Extrinsic compression of upper third of esophagus. Benign appearing esophageal stenosis dilated. Erythematous mucosa of the stomach. Patient modified barium swallow. Diet resumed under supervision as directed by speech therapist. 7. Hypothyroidism hold oral Synthroid. Patient is n.p.o. 8. GERD on PPI 9. Anxiety/depression. Overall Prozac on hold. Patient seen by palliative care. 10 DVT: Heparin 5000 subcutaneous every 8 hourly. Patient has worsening of bruises over both upper extremities. Hold heparin subcu tonight. Heparin subcu frequency increased to every 12 hours starting from tomorrow. Discontinue if platelet count drops less than 50,000 or hemoglobin less than 8 g% I had detailed discussion with patient's daughter, Mrs. Shawna Leggett regarding multiple comorbidities which are advanced including heart failure, anginal symptoms, non-STEMI, kidney failure, esophageal stenosis and dysphagia. She is also functionally very weak and compromised transfer from chair to bed. She agreed for evaluation for SNF for short time. I also gave her option for hospice although palliative care is following. She said her sisters are out of state and she will talk when they are back. I discussed with the casework specialistcommercial lending relationship manager worker. Discussed with the log tumbler and he will talk to patient's daughter. Total time of the visit including total time spent in counseling or coordination of care, (more than 50% of the total time, spent in obtaining medical information from nurses and other ancillary care providers,explaining to the patient and her daughter near the bedside about labs, imaging, diagnosis and management), calling and discussion with log tumbler, chemical compounder, GI, wound nurse, patient's daughter review of labs and imaging is 40 minutes. Charges/Coding Visit Charges Inpatient E&M: 31009 Subs Hosp L2
[2022-01-06] MEDS: Insulin Lispro 100 UNIT/ML INSULN.PEN SC ×3 (11:39→22:18)
[2022-01-06] MEDS: Pantoprazole Sodium 40 MG Tablet PO (11:39)
[2022-01-06 11:51] LABS: Bedside Glucose 200 mg/dL (74-106)
[2022-01-06 16:10] LABS: Bedside Glucose 216 mg/dL (74-106)
[2022-01-06 22:26] LABS: Bedside Glucose 183 mg/dL (74-106)
[2022-01-07] VITALS (16 sets, daily range): BP systolic 107–120; BP diastolic 48–55; PULSE 83–89; RESP 16–20; TEMP 1.5–36.6; O2SAT 93–100
[2022-01-07] MEDS: Acetylcysteine 800 MG/4 ML VIAL.NEB. INHALATION ×3 (01:42→13:28)
[2022-01-07] MEDS: Albuterol 2.5 MG/3 ML VIAL.NEB. INHALATION ×3 (01:42→13:28)
[2022-01-07] MEDS: Acetaminophen 500 MG Tablet 1000 MG PO (02:08)
[2022-01-07 05:52] LABS: Anion Gap 5 (5-15); BUN 84 mg/dL (7-18); BUN/Creat Ratio 50.3 RATIO (10-20); Calcium,Total 9.1 mg/dL (8.5-10.1); Chloride 103 mmol/L (98-107); Creatinine, Serum 1.67 mg/dL (0.55-1.02); EST Glomerular Filtration Rate 31 mL/min (>60); Est Glom Filt Rate - Afr Amer 38 mL/min (>60); Glucose 175 mg/dL (74-106); Potassium 4.5 mmol/L (3.5-5.1); Sodium Level 136 mmol/L (136-145)
[2022-01-07] MEDS: Levothyroxine 75 MCG Tablet PO (06:00)
[2022-01-07 06:56] LABS: Bedside Glucose 177 mg/dL (74-106)
[2022-01-07] MEDS: Insulin Lispro 100 UNIT/ML INSULN.PEN SC ×2 (08:35→11:29)
[2022-01-07] MEDS: FLUoxetine 20 MG Capsule 40 MG PO (08:36)
[2022-01-07] MEDS: Allopurinol 300 MG Tablet PO (08:37)
[2022-01-07] MEDS: Aspirin 81 MG TAB.CHEW PO (08:37)
[2022-01-07] MEDS: Montelukast 10 MG Tablet PO (08:37)
[2022-01-07] MEDS: Folic Acid 1 MG Tablet PO (08:37)
[2022-01-07] MEDS: Fluticasone 0.05% 1 SPRAY NASAL.SRY 2 SPRAY NASAL (08:38)
[2022-01-07] MEDS: Heparin Injection (Vial) 5,000 UNIT/ML VIAL 5000 UNIT SC (08:38)
[2022-01-07] MEDS: Pantoprazole Sodium 40 MG Tablet PO (08:42)
[2022-01-07] MEDS: Metoprolol(XL)Succ 25 MG Tablet PO (08:45)
--- NOTE | 2022-01-07 10:07 | CASEMGMT ---
Addendum entered by Brenda Hyatt 01/07/22 10:24: Per Georgie at [facility], they can do SOC tomorrow, 01/08/22. This RN CM to room to update pt/daughter, daughter voices understanding and pt is sleeping. Daughter would like aide added to C order and Georgie at [facility] aware, order updated. CM to follow for O2 need. Daughter also states pt may need transport home, CM to follow. Jerome PAREDES CM Original Note: Call to G[place]mez at [facility] [place] and he states they have hospital bed ready to be set up today for pt discharge. Call to [facility] to check on SOC for pt and Georgie will call this RN CM back. Per Ananya, pt is only on 2L at bedtime thru cpap. Pt to be tested on room air at rest and with exertion and new order to be sent if qualifies for increased O2. CM to follow. Jerome PAREDES CM
--- NOTE | 2022-01-07 10:41 | PCM.PN.REN ---
Subjective Subjective Following for JULISSA on CKD Patient resting in bed, no overnight events. Daughter at bedside. Reviewed with daughter current SCr and eGFR levels. Objective Data Objective Data Vital Signs: Vital Signs Temp Pulse Resp BP Pulse Ox 34.7 F L 87 18 120/48 L 100 01/07/22 10:04 01/07/22 10:04 01/07/22 10:04 01/07/22 10:04 01/07/22 10:08 Oxygen Flow Rate (L/min) [At 0 REST on Room Air] Oxygen Flow Rate (L/min) [At 2 REST with Oxygen] Oxygen Flow Rate (L/min) 2 Oxygen Delivery Method Nasal Cannula Weight: 79.4 kg Body Mass Index (BMI) 29.0 Intake & Output: Intake and Output for Last 24 Hours 01/05/22 01/06/22 01/07/22 22:59 23:59 23:59 Intake Total Output Total Balance Lab / Micro Data Result Diagrams: 01/06/22 05:45 01/07/22 04:04 Labs: Laboratory Results - last 24 hr 01/06/22 11:35: POC Glucose 200 H 01/06/22 16:04: POC Glucose 216 H 01/06/22 22:17: POC Glucose 183 H 01/07/22 04:04: Sodium 136, Potassium 4.5, Chloride 103, Carbon Dioxide 28.0, Anion Gap 5, BUN 84 H, Creatinine 1.67 H, Estim Creat Clear Calc 23.20, Est GFR (MDRD) Af Amer 38 L, Est GFR (MDRD) Non-Af 31 L, BUN/Creatinine Ratio 50.3 H, Glucose 175 H, Calcium 9.1 01/07/22 06:51: POC Glucose 177 H Physical Exam Narrative Const: A&Ox3, APACHE Cardio: S1 S2 RRR Resp: LS clear anteriorly, faint expiratory wheezing noted Extremities: No pitting edema : Wilcox out Assessment & Plan Assessment/Plan (1) Acute heart failure with preserved ejection fraction (HFpEF): (2) Hyperkalemia: PLAN: K better, off IV lasix. K+ peaked 6.6, today 4.5. Recommend to keep off aldactone at discharge (reviewed with patient's daughter). (3) JULISSA (acute kidney injury): PLAN: -She was recently admitted with congestive heart failure. Serum creatinine fluctuates between 1.3-1.5mg/dL with several variations. Currently creatinine is around 1.6-1.8mg/dL since admission. She was sent home on spironolactone after the last admission and potassium supplements which is likely cause of hyperkalemia. -Renal function is stable with some expected fluctuation. There is no acute indication for SENIOR ESTIMATOR. -Today creatinine is 1.67 mg/dL. -Scheduled Lasix was stopped on 01/03/2022 (Scr was 1.88mg/dL on 01/03/2022). -Ok to remain off diuretic for now. Volume status is acceptable. Reviewed this with patient's daughter. Once at home, patient/volume status may be better managed with PRN lasix. She is on thickened liquids which likely patient has poor fluid intake. Admission wt ~78kg, current weight 79kg. At home daughter keeps patient on 1.5-2L fluid restriction and will continue this -Bps acceptable on metoprolol. - GI consulted for dysphagia, had EGD with dilatation of esophagus - palliative care team consulted, note reviewed - discharge planning in progress, discussed with Dr. Tucker.
[2022-01-07 11:06] LABS: Bedside Glucose 186 mg/dL (74-106)
--- NOTE | 2022-01-07 11:52 | CASEMGMT ---
EMMY was informed patient's daughter Shawna would like to talk with EMMY about SNF. EMMY met with Shawna. Shawna was upset with family as all of decisions are being made by her sisters who are currently in [place]. Shawna spoke with her sisters about which SNF and their choices are as follows: [facility] and 3. [facility]. EMMY let Shawna know SW will work on referrals and let her know which facility is able to accept. EMMY spoke with d/c sales planning coordinator Rocio and asked that she make a referral to [facility]. Await response. Plan: SNF pending facility acceptance. Jen Lechuga SEALING MACHINE OPERATOR LEILANI
[2022-01-07 12:02] LABS: Phosphorus 3.1 mg/dL (2.5-4.9)
--- NOTE | 2022-01-07 12:03 | CASEMGMT ---
Discharge Chief Operator Hydroformer Called Emili at [facility]. Left a VM. Faxed Referral. Will continue to follow up. Rocio Villa Discharge Chief Operator Hydroformer
--- NOTE | 2022-01-07 12:12 | CASEMGMT ---
Addendum entered by Brenda Hyatt 01/07/22 14:56: [facility] can take pt. Call to Georgie at [facility] to update and Breanne at [facility] [place] also updated as well that hospital bed not needed. Jerome PAREDES CM Original Note: Pt's family now is stating they would like pt to go to SNF at discharge. E.Ankush SW into room. Call to Breanne at [facility] [place] to notify that bed may not be needed, voices understanding. CM to follow. Jerome PAREDES CM
--- NOTE | 2022-01-07 12:26 | PN.HOSP_ITS ---
Subjective Subjective Patient seen and examined. States she feels terrible. Reports intermittent shortness of breath. Requesting water/ice chips frequently. She denies other symptoms or complaints. Family has now decided on SNF for rehab. Objective Data Objective Data Vital Signs: Vital Signs Temp Pulse Resp BP Pulse Ox 97.9 F 88 20 H 107/55 L 96 01/07/22 12:08 01/07/22 12:08 01/07/22 12:08 01/07/22 12:08 01/07/22 12:08 Oxygen Flow Rate (L/min) [At 0 REST on Room Air] Oxygen Flow Rate (L/min) [At 2 REST with Oxygen] Oxygen Flow Rate (L/min) 2 Oxygen Delivery Method Room Air Weight: 175 lb 0.752 oz Body Mass Index (BMI) 29.0 Intake & Output: Intake and Output for Last 24 Hours 01/05/22 01/06/22 01/07/22 22:59 23:59 23:59 Intake Total Output Total Balance Lab / Micro Data Result Diagrams: 01/06/22 05:45 01/07/22 04:04 Labs: Laboratory Results - last 24 hr 01/06/22 16:04: POC Glucose 216 H 01/06/22 22:17: POC Glucose 183 H 01/07/22 04:04: Sodium 136, Potassium 4.5, Chloride 103, Carbon Dioxide 28.0, Anion Gap 5, BUN 84 H, Creatinine 1.67 H, Estim Creat Clear Calc 23.20, Est GFR (MDRD) Af Amer 38 L, Est GFR (MDRD) Non-Af 31 L, BUN/Creatinine Ratio 50.3 H, Glucose 175 H, Calcium 9.1 01/07/22 04:05: Phosphorus 3.1 01/07/22 06:51: POC Glucose 177 H 01/07/22 10:51: POC Glucose 186 H Physical Exam Const alert, oriented x3 and no apparent distress Orientation / Consciousness: awake, oriented to person, oriented to place and oriented to time Nutritional Appearance: cachectic HEENT normocephalic Mouth: dry mucous membranes Eyes PERRL, EOMs intact bilaterally and conjunctivae normal Neck no lymphadenopathy Resp clear to auscultation bilaterally Auscultation: diminished lung sounds Cardio regular rate, regular rhythm and no murmurs Peripheral Pulses: pulses 2+ throughout GI normal to inspection, nondistended, normoactive bowel sounds, non-tender and non-distended Extremity normal to inspection Skin no rashes or lesions noted Lesions: no lesions Rashes: no rashes Trauma: no lacerations or abrasions Neuro CN's II-XII intact bilaterally, no focal motor deficits, no sensory deficits noted and deep tendon reflexes 2+ bilaterally Psych mental status grossly normal and affect normal Assessment & Plan Assessment/Plan (1) Chest pain: PLAN: 1. Chest pain/NSTEMI-CAD with history of bypass. Cardiology consulted on admission. Plan for medical management/conservative treatment at this time. Continue aspirin, statin, beta-yareli, isosorbide 2. Acute on chronic systolic and diastolic combined heart failure-echocardiogram with EF 25%, stage III diastolic dysfunction, moderate focal aortic valve calcification. Initially received Lasix complicated by worsening renal functio n. Volume status now stable. Further Lasix discontinued. 3. Acute kidney injury on chronic kidney disease stage IV-nephrology following. Discontinue Aldactone at discharge. Nephrology recommending as needed Lasix for fluid overload. Creatinine stable. 4. Right heel and sacral decubitus ulcerations-present on admission. Follows at wound center. Wound RN consult. Offloading/every 2 hours turns. 5. Type 2 diabetes mellitus-Metformin on hold. Accu-Cheks with sliding scale insulin. 6. Esophageal dysphagia/esophageal stricture-GI and speech therapy consulted. Underwent esophageal dilation. Continue dietary modifications per speech therapy recommendations. Aspiration precautions. 7. Hypothyroidism-continue Synthroid. 8. GERD-continue PPI. 9. Anxiety/depression-on Prozac. DVT prophylaxis-Heparin subcu This patient was seen by KERLINE Choi under the supervision of Dr. Cage. Discharge plan: SNF pending acceptance. Palliative care to follow. Time spent examining patient, reviewing data and subsequent management of care: 16 Minutes
--- NOTE | 2022-01-07 14:10 | CASEMGMT ---
Discharge Butt Presser Emili from [facility] reached out and accepted the patient. Patient can go today. EMMY Li notified. Rocio Vilal Discharge Butt Presser
--- NOTE | 2022-01-07 14:21 | CASEMGMT ---
Addendum entered by Jen Lechuga 01/07/22 15:05: EMMY completed 7000 on HENS. EMMY arranged for patient to get picked up at 1630 via cot. D/c Plannner faxed orders and notified involved parties of tile picker time. Jen DUKE Original Note: EMMY notified patient's daughter Shawna that [facility] can accept patient. EMMY let her know once physician completes paperwork EMMY will set up transportation. Jen DUKE
[2022-01-07] MEDS: Ondansetron 4 MG/2 ML Vial IV (14:22)
--- NOTE | 2022-01-07 14:22 | PCM.TXEXTCAR ---
Documented by User: Michelle Schroeder NP, CRYPTOLOGIC SUPERVISOR-C 01/07/22 14:35 Diet 01/03/22 14:04 Diet: Cardiac - Heart Healthy Food consistency:: Soft & Bite Sized Liquid Consistency:: Conception/Mildly Thick Type of Dietary Supplement:: ensure enlive TID Is pt able to select menu?: No Diet Comments: Direct Sup., Double swallow each sip, cough/reswallow if wet vocal quality Routine Orders/Code Status Enema Type: Fleetz Enema Frequency: Daily PRN Suppository Type: Dulcolax 10mg Suppository Frequency: Daily PRN O2 Liters per Minute: 2 O2 Frequency: PRN Keep PO Greater than or Equal to (%): 90 Routine Lab Work: - (Weekly BMP, CBC) [facility]) coccyx: Wound Type: Pressure Injury Dressing Change: Milana with Mepilex dressing rt heal: Wound Type: Pressure Injury right lateral heel: Wound Type: Pressure Injury Suggestions for Active Care Change Position every (hours): 2 Times a day to sit in chair: 3 Therapies Physical Therapy: Eval and Treat Occupational Therapy: Eval and Treat Speech Therapy: Eval and Treat Problem/Diagnosis (1) Chest pain: Status: Resolved Allergies/Procedures Done in Hospital Allergies Iodinated Contrast Media [CONTRASTS] Adverse Reaction (Verified 01/01/22 02:02) Hives Procedures: None Type of Care/Length of Stay Estimated LOS: Convalescent Care Less Than 30 days Type of Care Needed: Skilled Rehab Potential: Fair Prognosis: Fair Additional Orders/Day of Discharge H&P will serve as current which was dated: 01/01/22 Day of Discharge: 01/07/22 Dietary and Speech Recommendations Dietitian Recommendations/Changes: continue cardiac diet- texture/consistency modifications per BLANCHARD GRINDER OPERATOR (soft and bite sized, nectar); will add ensure enlive 240mL w/ meals and 120mL 4x/day w/ medpass for additional protein/calories if consumed. Discharge Plan Admission Admit Date/Time: 01/01/22 03:40 Primary Reason for Your Visit: Acute on chronic combined heart failure, acute kidney injury and CKD G4 Attending Provider: Moira Cage Primary Care Provider: Rommel Arango Consulting Providers: Ruba Brennan ; Gisel Pacheco Instructions Additional Instructions / Restrictions: May use Lasix 40 mg as needed for evidence of volume overload. Discharge Orders/Prescriptions Prescriptions: New pantoprazole [Protonix] 40 mg tablet,delayed release (DR/EC) 40 mg PO DAILY Qty: 30 RF: 2 acetylcysteine 200 mg/mL (20 %) Solution 800 mg inhalation Q6H.RT Qty: 0 RF: 0 albuterol sulfate 2.5 mg /3 mL (0.083 %) Solution For Nebulization 2.5 mg inhalation Q2H PRN PRN (Reason: SOB &/OR WHEEZING) Qty: 0 RF: 0 Ensure Enlive 0.08 gram-1.5 kcal/mL Liquid 120 ml PO 4X/DAY Qty: 0 RF: 0 insulin lispro [Humalog KwikPen Insulin] 100 unit/mL Insulin Pen See Protocol unit subcut ACHS Qty: 0 RF: 0 Lantus Solostar U-100 Insulin 100 unit/mL (3 mL) Insulin Pen 10 units subcut DAILY Qty: 0 RF: 0 Continued allopurinol 300 mg tablet 300 mg PO DAILY RF: 0 fluoxetine 40 mg capsule 40 cap PO DAILY RF: 0 guaifenesin [Mucinex] 600 mg tablet extended release 12hr 600 mg PO BID PRN (Reason: Cough) RF: 0 albuterol sulfate 2.5 MG/3 ML solution for nebulization 2.5 mg inhalation TID RF: 0 levothyroxine 75 MCG tablet 75 mcg PO DAILY RF: 0 simvastatin 20 MG tablet 20 mg PO QHS RF: 0 nitroglycerin 0.4 MG tablet, sublingual 0.4 mg sublingual Q5M PRN (Reason: Chest Pain) RF: 0 aspirin 81 MG tablet,chewable 81 mg PO DAILY@0800 RF: 0 folic acid 1 MG tablet 1 mg PO DAILY RF: 0 polyethylene glycol 3350 17 GM packet 17 g PO DAILY RF: 0 methylcellulose (laxative) 479 GM powder 850 g PO DAILY RF: 0 conjugated estrogens 0.625 MG tablet 0.625 mg vaginal MOWEFR RF: 0 montelukast 10 MG tablet 10 mg PO DAILY RF: 0 nystatin [Nystop] 1 APPLIC bottle 1 applic TOPICAL BID RF: 0 acetaminophen 500 MG tablet 1,000 mg PO Q6H PRN PRN (Reason: Pain Score 1-10) RF: 0 fluticasone propionate 1 SPRAY spray,suspension 2 spray NASAL DAILY Qty: 1 RF: 0 menthol-zinc oxide 1 APPLIC ointment 1 applic TOPICAL BID RF: 0 isosorbide mononitrate 60 MG tablet 60 mg PO BID Qty: 0 RF: 0 metoprolol succinate 25 MG tablet extended release 24 hr 25 mg PO DAILY Qty: 0 RF: 0 Discontinued omeprazole 40 MG capsule,delayed release(DR/EC) 40 mg PO DAILY RF: 0 colchicine 0.6 MG capsule 0.6 mg PO PRN PRN (Reason: gout) RF: 0 potassium chloride 20 MEQ tablet 40 meq PO BID RF: 0 metformin 500 MG tablet 500 mg PO BID Qty: 60 RF: 0 spironolactone 25 MG tablet 25 mg PO DAILY Qty: 30 RF: 0 furosemide [Lasix] 40 mg tablet 40 mg PO BID 30 Days Qty: 60 RF: 1 Hold Instructions: Hold for 3 days and resume 40 mg daily. Referrals / Follow Up: Rommel Arango MD [Primary Care Provider] - 01/09/22 11:30 am Long Jovel MD [STAFF PHYSICIAN] - 02/05/22 2:30 pm (for heart failure, NSTEMI) Gisel Pacheco MD [STAFF PHYSICIAN] - 01/21/22 12:45 pm (FOR JULISSA on CKD stage 4. BMP in 1 week This appointment is in the [place] office) FriendJong DO [STAFF PHYSICIAN] - 01/17/22 10:45 am (for dysphagia/esophageal stenosis) Disposition Disposition (needs filled in before D/C Order can be placed): Home Health Service Documented by User: Dr. Moira Cage MD 01/07/22 14:44 Allergies/Procedures Done in Hospital Allergies Iodinated Contrast Media [CONTRASTS] Adverse Reaction (Verified 01/01/22 02:02) Hives Discharge Plan Admission Admit Date/Time: 01/01/22 03:40 Primary Reason for Your Visit: Acute on chronic combined heart failure, acute kidney injury and CKD G4 Attending Provider: Moira Cage Primary Care Provider: Rommel Arango Consulting Providers: Ruba Brennan ; Gisel Pacheco Instructions Additional Instructions / Restrictions: May use Lasix 40 mg as needed for evidence of volume overload. Discharge Orders/Prescriptions Prescriptions: New pantoprazole [Protonix] 40 mg tablet,delayed release (DR/EC) 40 mg PO DAILY Qty: 30 RF: 2 acetylcysteine 200 mg/mL (20 %) Solution 800 mg inhalation Q6H.RT Qty: 0 RF: 0 albuterol sulfate 2.5 mg /3 mL (0.083 %) Solution For Nebulization 2.5 mg inhalation Q2H PRN PRN (Reason: SOB &/OR WHEEZING) Qty: 0 RF: 0 Ensure Enlive 0.08 gram-1.5 kcal/mL Liquid 120 ml PO 4X/DAY Qty: 0 RF: 0 insulin lispro [Humalog KwikPen Insulin] 100 unit/mL Insulin Pen See Protocol unit subcut ACHS Qty: 0 RF: 0 Lantus Solostar U-100 Insulin 100 unit/mL (3 mL) Insulin Pen 10 units subcut DAILY Qty: 0 RF: 0 Continued allopurinol 300 mg tablet 300 mg PO DAILY RF: 0 fluoxetine 40 mg capsule 40 cap PO DAILY RF: 0 guaifenesin [Mucinex] 600 mg tablet extended release 12hr 600 mg PO BID PRN (Reason: Cough) RF: 0 albuterol sulfate 2.5 MG/3 ML solution for nebulization 2.5 mg inhalation TID RF: 0 levothyroxine 75 MCG tablet 75 mcg PO DAILY RF: 0 simvastatin 20 MG tablet 20 mg PO QHS RF: 0 nitroglycerin 0.4 MG tablet, sublingual 0.4 mg sublingual Q5M PRN (Reason: Chest Pain) RF: 0 aspirin 81 MG tablet,chewable 81 mg PO DAILY@0800 RF: 0 folic acid 1 MG tablet 1 mg PO DAILY RF: 0 polyethylene glycol 3350 17 GM packet 17 g PO DAILY RF: 0 methylcellulose (laxative) 479 GM powder 850 g PO DAILY RF: 0 conjugated estrogens 0.625 MG tablet 0.625 mg vaginal MOWEFR RF: 0 montelukast 10 MG tablet 10 mg PO DAILY RF: 0 nystatin [Nystop] 1 APPLIC bottle 1 applic TOPICAL BID RF: 0 acetaminophen 500 MG tablet 1,000 mg PO Q6H PRN PRN (Reason: Pain Score 1-10) RF: 0 fluticasone propionate 1 SPRAY spray,suspension 2 spray NASAL DAILY Qty: 1 RF: 0 menthol-zinc oxide 1 APPLIC ointment 1 applic TOPICAL BID RF: 0 isosorbide mononitrate 60 MG tablet 60 mg PO BID Qty: 0 RF: 0 metoprolol succinate 25 MG tablet extended release 24 hr 25 mg PO DAILY Qty: 0 RF: 0 Discontinued omeprazole 40 MG capsule,delayed release(DR/EC) 40 mg PO DAILY RF: 0 colchicine 0.6 MG capsule 0.6 mg PO PRN PRN (Reason: gout) RF: 0 potassium chloride 20 MEQ tablet 40 meq PO BID RF: 0 metformin 500 MG tablet 500 mg PO BID Qty: 60 RF: 0 spironolactone 25 MG tablet 25 mg PO DAILY Qty: 30 RF: 0 furosemide [Lasix] 40 mg tablet 40 mg PO BID 30 Days Qty: 60 RF: 1 Hold Instructions: Hold for 3 days and resume 40 mg daily. Referrals / Follow Up: Rommel Arango MD [Primary Care Provider] - 01/09/22 11:30 am Long Jovel MD [STAFF PHYSICIAN] - 02/05/22 2:30 pm (for heart failure, NSTEMI) Gisel Pacheco MD [STAFF PHYSICIAN] - 01/21/22 12:45 pm (FOR JULISSA on CKD stage 4. BMP in 1 week This appointment is in the [place] office) FriendJong DO [STAFF PHYSICIAN] - 01/17/22 10:45 am (for dysphagia/esophageal stenosis) Disposition Disposition (needs filled in before D/C Order can be placed): Home Health Service
[2022-01-07] MEDS: 0.9% Saline Lock 10 ML Syringe IV (14:23)
--- NOTE | 2022-01-07 14:36 | PCM.DC.SUM ---
Documented by User: Michelle Schroeder NP, [employer] 01/07/22 14:40 Providers Date of Admission: 01/01/22 Date of Discharge: 01/07/22 Primary Care Physician: Dr. Rommel Arango MD Consultations 01/01/22 05:06 Consult: Cardiology Routine Consulting Provider: Ruba Brennan Reason for Consult: chest pain EMERGENT Consult: Yes MD Notified: Yes Date Notified: 01/01/22 Time Notified: 03:49 Method of Notification: Verbal 01/01/22 07:35 Consult: Nephrology Routine Consulting Provider: Gisel Pacheco Reason for Consult: JULISSA on CKD, Acute hyperkalmia. NSTEMI EMERGENT Consult: No MD Notified: Yes Date Notified: 01/01/22 Time Notified: 07:35 Method of Notification: Verbal 01/01/22 12:42 Consult: Onc/Wound/box coverer hand Routine Comment: Reason for Consult:: Right heel and subcrural decubitus ulcer 01/02/22 09:23 Consult: Onc/Wound/box coverer hand Routine Comment: Reason For Visit: CHEST PAIN Diagnosis Discharge Diagnosis (1) Chest pain: Status: Resolved Code(s): R07.9 - Chest pain, unspecified Medications at Discharge Home Medications albuterol sulfate 2.5 mg INHALATION TID 06/05/19 aspirin 81 mg PO DAILY@0800 06/05/19 folic acid 1 mg PO DAILY 06/05/19 levothyroxine 75 mcg PO DAILY 06/05/19 nitroglycerin 0.4 mg SUBLINGUAL Q5M PRN 06/05/19 polyethylene glycol 3350 17 g PO DAILY 06/05/19 simvastatin 20 mg PO QHS 06/05/19 methylcellulose (laxative) 850 g PO DAILY 06/29/19 allopurinol 300 mg tablet 300 mg PO DAILY tab 09/19/20 fluoxetine 40 mg capsule 40 cap PO DAILY 09/19/20 guaifenesin 600 mg tablet, extended release 12 hr 600 mg PO BID PRN 09/19/20 conjugated estrogens 0.625 mg VAGINAL MOWEFR 01/30/21 montelukast 10 mg PO DAILY 01/30/21 nystatin [Nystop] 1 applic TOPICAL BID 02/04/21 acetaminophen 1,000 mg PO Q6H PRN PRN tablet 02/16/21 fluticasone propionate 2 spray NASAL DAILY #1 02/16/21 menthol-zinc oxide 1 applic TOPICAL BID 12/29/21 isosorbide mononitrate 60 mg PO BID #0 tab 01/04/22 metoprolol succinate 25 mg PO DAILY #0 tab 01/04/22 pantoprazole [Protonix] 40 mg PO DAILY #30 tab 01/04/22 acetylcysteine 800 mg INHALATION Q6H.RT #0 ml 01/07/22 albuterol sulfate 2.5 mg INHALATION Q2H PRN PRN #0 ml 01/07/22 food supplemt, lactose-reduced [Ensure Enlive] 120 ml PO 4X/DAY #0 ml 01/07/22 insulin glargine [Lantus Solostar U-100 Insulin] 10 units SUBCUT DAILY #0 ml 01/07/22 insulin lispro [Humalog KwikPen Insulin] See Protocol SUBCUT ACHS #0 ml 01/07/22 Hospital Course Operations None Procedures 2-D Echocardiogram Summary of Care Provided Hospital Course: Patient is an 81-year-old female admitted 01/01/2022 due to shortness of breath, chest pain. 1. Chest pain/NSTEMI-CAD with history of bypass. Cardiology consulted on admission. Plan for medical management/conservative treatment at this time. Continue aspirin, statin, beta-yareli, isosorbide. Outpatient follow-up with cardiology. 2. Acute on chronic systolic and diastolic combined heart failure-echocardiogram with EF 25%, stage III diastolic dysfunction, moderate focal aortic valve calcification. Initially received Lasix complicated by worsening renal function. Volume status now stable. Further Lasix discontinued. Per nephrology, may use as needed Lasix for evidence of volume overload. 3. Acute kidney injury on chronic kidney disease stage IV-nephrology consulted during admission. Discontinue Aldactone at discharge. Nephrology recommending as needed Lasix for fluid overload. Creatinine stable. Outpatient follow-up with nephrology. 4. Right heel and sacral decubitus ulcerations-present on admission. Follows at wound center. Wound RN consult. Offloading/every 2 hours turns. 5. Type 2 diabetes mellitus-Metformin discontinued. Accu-Cheks with sliding scale insulin. Continue Lantus. 6. Esophageal dysphagia/esophageal stricture-GI and speech therapy consulted. Underwent esophageal dilation. Continue dietary modifications per speech therapy recommendations. Aspiration precautions. Continue outpatient follow-up with GI. 7. Hypothyroidism-continue Synthroid. 8. GERD-continue PPI. 9. Anxiety/depression-on Prozac. Physical Exam Const alert, oriented x3 and no apparent distress Orientation / Consciousness: awake, oriented to person, oriented to place and oriented to time Nutritional Appearance: cachectic HEENT normocephalic Mouth: dry mucous membranes Eyes PERRL, EOMs intact bilaterally and conjunctivae normal Neck no lymphadenopathy Resp clear to auscultation bilaterally Auscultation: diminished lung sounds Cardio regular rate, regular rhythm and no murmurs Peripheral Pulses: pulses 2+ throughout GI normal to inspection, nondistended, normoactive bowel sounds, non-tender and non-distended Extremity normal to inspection Skin no rashes or lesions noted Lesions: no lesions Rashes: no rashes Trauma: no lacerations or abrasions Neuro CN's II-XII intact bilaterally, no focal motor deficits, no sensory deficits noted and deep tendon reflexes 2+ bilaterally Psych mental status grossly normal and affect normal Patient seen and examined prior to discharge. Physical assessment as noted above. Patient is stable for discharge with follow up recommendations as noted above. This patient was seen by KERLINE Choi under the supervision of Dr. Cage. Time spent examining patient, reviewing data and subsequent management of care: 18 Minutes Weight / BMI Weight Weight: 175 lb 0.752 oz Body Mass Index (BMI) 29.0 ABG / Lab / Microbiology Data Result Diagrams: 01/06/22 05:45 01/07/22 04:04 Laboratory: Laboratory Results - last 24 hr 01/06/22 16:04: POC Glucose 216 H 01/06/22 22:17: POC Glucose 183 H 01/07/22 04:04: Sodium 136, Potassium 4.5, Chloride 103, Carbon Dioxide 28.0, Anion Gap 5, BUN 84 H, Creatinine 1.67 H, Estim Creat Clear Calc 23.20, Est GFR (MDRD) Af Amer 38 L, Est GFR (MDRD) Non-Af 31 L, BUN/Creatinine Ratio 50.3 H, Glucose 175 H, Calcium 9.1 01/07/22 04:05: Phosphorus 3.1 01/07/22 06:51: POC Glucose 177 H 01/07/22 10:51: POC Glucose 186 H Microbiology: Microbiology 01/07/22 Unknown Nasal Secretion SARS-CoV-2 Antigen (Rapid) - Final Meaningful Use Info Meaningful Use Diagnoses (Choose all that apply): CHF CHF RITA/ARB ordered at discharge?: No Reason RITA/ARB not ordered?: Worsening renal disease Documented LVEF (%): 25 Discharge Plan Admission Admit Date/Time: 01/01/22 03:40 Primary Reason for Your Visit: Acute on chronic combined heart failure, acute kidney injury and CKD G4 Attending Provider: Moira Cage Primary Care Provider: Rommel Arango Consulting Providers: Ruba Brennan ; Gisel Pacheco Instructions Additional Instructions / Restrictions: May use Lasix 40 mg as needed for evidence of volume overload. Discharge Orders/Prescriptions Prescriptions: New pantoprazole [Protonix] 40 mg tablet,delayed release (DR/EC) 40 mg PO DAILY Qty: 30 RF: 2 acetylcysteine 200 mg/mL (20 %) Solution 800 mg inhalation Q6H.RT Qty: 0 RF: 0 albuterol sulfate 2.5 mg /3 mL (0.083 %) Solution For Nebulization 2.5 mg inhalation Q2H PRN PRN (Reason: SOB &/OR WHEEZING) Qty: 0 RF: 0 Ensure Enlive 0.08 gram-1.5 kcal/mL Liquid 120 ml PO 4X/DAY Qty: 0 RF: 0 insulin lispro [Humalog KwikPen Insulin] 100 unit/mL Insulin Pen See Protocol unit subcut ACHS Qty: 0 RF: 0 Lantus Solostar U-100 Insulin 100 unit/mL (3 mL) Insulin Pen 10 units subcut DAILY Qty: 0 RF: 0 Continued allopurinol 300 mg tablet 300 mg PO DAILY RF: 0 fluoxetine 40 mg capsule 40 cap PO DAILY RF: 0 guaifenesin [Mucinex] 600 mg tablet extended release 12hr 600 mg PO BID PRN (Reason: Cough) RF: 0 albuterol sulfate 2.5 MG/3 ML solution for nebulization 2.5 mg inhalation TID RF: 0 levothyroxine 75 MCG tablet 75 mcg PO DAILY RF: 0 simvastatin 20 MG tablet 20 mg PO QHS RF: 0 nitroglycerin 0.4 MG tablet, sublingual 0.4 mg sublingual Q5M PRN (Reason: Chest Pain) RF: 0 aspirin 81 MG tablet,chewable 81 mg PO DAILY@0800 RF: 0 folic acid 1 MG tablet 1 mg PO DAILY RF: 0 polyethylene glycol 3350 17 GM packet 17 g PO DAILY RF: 0 methylcellulose (laxative) 479 GM powder 850 g PO DAILY RF: 0 conjugated estrogens 0.625 MG tablet 0.625 mg vaginal MOWEFR RF: 0 montelukast 10 MG tablet 10 mg PO DAILY RF: 0 nystatin [Nystop] 1 APPLIC bottle 1 applic TOPICAL BID RF: 0 acetaminophen 500 MG tablet 1,000 mg PO Q6H PRN PRN (Reason: Pain Score 1-10) RF: 0 fluticasone propionate 1 SPRAY spray,suspension 2 spray NASAL DAILY Qty: 1 RF: 0 menthol-zinc oxide 1 APPLIC ointment 1 applic TOPICAL BID RF: 0 isosorbide mononitrate 60 MG tablet 60 mg PO BID Qty: 0 RF: 0 metoprolol succinate 25 MG tablet extended release 24 hr 25 mg PO DAILY Qty: 0 RF: 0 Discontinued omeprazole 40 MG capsule,delayed release(DR/EC) 40 mg PO DAILY RF: 0 colchicine 0.6 MG capsule 0.6 mg PO PRN PRN (Reason: gout) RF: 0 potassium chloride 20 MEQ tablet 40 meq PO BID RF: 0 metformin 500 MG tablet 500 mg PO BID Qty: 60 RF: 0 spironolactone 25 MG tablet 25 mg PO DAILY Qty: 30 RF: 0 furosemide [Lasix] 40 mg tablet 40 mg PO BID 30 Days Qty: 60 RF: 1 Hold Instructions: Hold for 3 days and resume 40 mg daily. Referrals / Follow Up: Rommel Arango MD [Primary Care Provider] - 01/09/22 11:30 am Long Jovel MD [STAFF PHYSICIAN] - 02/05/22 2:30 pm (for heart failure, NSTEMI) Gisel Pacheco MD [STAFF PHYSICIAN] - 01/21/22 12:45 pm (FOR JULISSA on CKD stage 4. BMP in 1 week This appointment is in the [place] office) Jong Alberto DO [STAFF PHYSICIAN] - 01/17/22 10:45 am (for dysphagia/esophageal stenosis) Disposition Disposition (needs filled in before D/C Order can be placed): Home Health Service Documented by User: Dr. Moira Cage MD 01/07/22 15:01 Providers Date of Admission: 01/01/22 Reason For Visit: CHEST PAIN Medications at Discharge Home Medications albuterol sulfate 2.5 mg INHALATION TID 06/05/19 aspirin 81 mg PO DAILY@0800 06/05/19 folic acid 1 mg PO DAILY 06/05/19 levothyroxine 75 mcg PO DAILY 06/05/19 nitroglycerin 0.4 mg SUBLINGUAL Q5M PRN 06/05/19 polyethylene glycol 3350 17 g PO DAILY 06/05/19 simvastatin 20 mg PO QHS 06/05/19 methylcellulose (laxative) 850 g PO DAILY 06/29/19 allopurinol 300 mg tablet 300 mg PO DAILY tab 09/19/20 fluoxetine 40 mg capsule 40 cap PO DAILY 09/19/20 guaifenesin 600 mg tablet, extended release 12 hr 600 mg PO BID PRN 09/19/20 conjugated estrogens 0.625 mg VAGINAL MOWEFR 01/30/21 montelukast 10 mg PO DAILY 01/30/21 nystatin [Nystop] 1 applic TOPICAL BID 02/04/21 acetaminophen 1,000 mg PO Q6H PRN PRN tablet 02/16/21 fluticasone propionate 2 spray NASAL DAILY #1 02/16/21 menthol-zinc oxide 1 applic TOPICAL BID 12/29/21 isosorbide mononitrate 60 mg PO BID #0 tab 01/04/22 metoprolol succinate 25 mg PO DAILY #0 tab 01/04/22 pantoprazole [Protonix] 40 mg PO DAILY #30 tab 01/04/22 acetylcysteine 800 mg INHALATION Q6H.RT #0 ml 01/07/22 albuterol sulfate 2.5 mg INHALATION Q2H PRN PRN #0 ml 01/07/22 food supplemt, lactose-reduced [Ensure Enlive] 120 ml PO 4X/DAY #0 ml 01/07/22 insulin glargine [Lantus Solostar U-100 Insulin] 10 units SUBCUT DAILY #0 ml 01/07/22 insulin lispro [Humalog KwikPen Insulin] See Protocol SUBCUT ACHS #0 ml 01/07/22 ABG / Lab / Microbiology Data Result Diagrams: 01/06/22 05:45 01/07/22 04:04 Discharge Plan Admission Admit Date/Time: 01/01/22 03:40 Primary Reason for Your Visit: Acute on chronic combined heart failure, acute kidney injury and CKD G4 Attending Provider: Moira Cage Primary Care Provider: Rommel Arango Consulting Providers: Ruba Brennan ; Gisel Pacheco Instructions Additional Instructions / Restrictions: May use Lasix 40 mg as needed for evidence of volume overload. Discharge Orders/Prescriptions Prescriptions: New pantoprazole [Protonix] 40 mg tablet,delayed release (DR/EC) 40 mg PO DAILY Qty: 30 RF: 2 acetylcysteine 200 mg/mL (20 %) Solution 800 mg inhalation Q6H.RT Qty: 0 RF: 0 albuterol sulfate 2.5 mg /3 mL (0.083 %) Solution For Nebulization 2.5 mg inhalation Q2H PRN PRN (Reason: SOB &/OR WHEEZING) Qty: 0 RF: 0 Ensure Enlive 0.08 gram-1.5 kcal/mL Liquid 120 ml PO 4X/DAY Qty: 0 RF: 0 insulin lispro [Humalog KwikPen Insulin] 100 unit/mL Insulin Pen See Protocol unit subcut ACHS Qty: 0 RF: 0 Lantus Solostar U-100 Insulin 100 unit/mL (3 mL) Insulin Pen 10 units subcut DAILY Qty: 0 RF: 0 Continued allopurinol 300 mg tablet 300 mg PO DAILY RF: 0 fluoxetine 40 mg capsule 40 cap PO DAILY RF: 0 guaifenesin [Mucinex] 600 mg tablet extended release 12hr 600 mg PO BID PRN (Reason: Cough) RF: 0 albuterol sulfate 2.5 MG/3 ML solution for nebulization 2.5 mg inhalation TID RF: 0 levothyroxine 75 MCG tablet 75 mcg PO DAILY RF: 0 simvastatin 20 MG tablet 20 mg PO QHS RF: 0 nitroglycerin 0.4 MG tablet, sublingual 0.4 mg sublingual Q5M PRN (Reason: Chest Pain) RF: 0 aspirin 81 MG tablet,chewable 81 mg PO DAILY@0800 RF: 0 folic acid 1 MG tablet 1 mg PO DAILY RF: 0 polyethylene glycol 3350 17 GM packet 17 g PO DAILY RF: 0 methylcellulose (laxative) 479 GM powder 850 g PO DAILY RF: 0 conjugated estrogens 0.625 MG tablet 0.625 mg vaginal MOWEFR RF: 0 montelukast 10 MG tablet 10 mg PO DAILY RF: 0 nystatin [Nystop] 1 APPLIC bottle 1 applic TOPICAL BID RF: 0 acetaminophen 500 MG tablet 1,000 mg PO Q6H PRN PRN (Reason: Pain Score 1-10) RF: 0 fluticasone propionate 1 SPRAY spray,suspension 2 spray NASAL DAILY Qty: 1 RF: 0 menthol-zinc oxide 1 APPLIC ointment 1 applic TOPICAL BID RF: 0 isosorbide mononitrate 60 MG tablet 60 mg PO BID Qty: 0 RF: 0 metoprolol succinate 25 MG tablet extended release 24 hr 25 mg PO DAILY Qty: 0 RF: 0 Discontinued omeprazole 40 MG capsule,delayed release(DR/EC) 40 mg PO DAILY RF: 0 colchicine 0.6 MG capsule 0.6 mg PO PRN PRN (Reason: gout) RF: 0 potassium chloride 20 MEQ tablet 40 meq PO BID RF: 0 metformin 500 MG tablet 500 mg PO BID Qty: 60 RF: 0 spironolactone 25 MG tablet 25 mg PO DAILY Qty: 30 RF: 0 furosemide [Lasix] 40 mg tablet 40 mg PO BID 30 Days Qty: 60 RF: 1 Hold Instructions: Hold for 3 days and resume 40 mg daily. Referrals / Follow Up: Rommel Arango MD [Primary Care Provider] - 01/09/22 11:30 am Long Jovel MD [STAFF PHYSICIAN] - 02/05/22 2:30 pm (for heart failure, NSTEMI) Gisel Pacheco MD [STAFF PHYSICIAN] - 01/21/22 12:45 pm (FOR JULISSA on CKD stage 4. BMP in 1 week This appointment is in the [place] office) Jong Alberto DO [STAFF PHYSICIAN] - 01/17/22 10:45 am (for dysphagia/esophageal stenosis) Disposition Disposition (needs filled in before D/C Order can be placed): Home Health Service Charges/Coding Addendum Addendum: This patient was seen in conjunction with Michelle Schroeder NP. I have independently interviewed and examined the patient and reviewed pertinent historical, laboratory, and other data. I have reviewed her note and concur with her documentation 81-year-old female with multiple comorbidities including heart failure, history of CAD status post CABG and stent, recently discharged with CHF. Patient presented back with complaints of chest discomfort and shortness of breath. Her troponins were found to be elevated at 393 and that trended down. She was managed as acute on chronic combined CHF. 2D echo shows EF of 25%, stage III diastolic dysfunction. She was managed on aspirin, statin, beta-yareli, isosorbide. She also had hyperkalemia on admission. This was treated medically. She had JULISSA on CKD stage IIIb, creatinine is at baseline. Creatinine today is 2.56. We will continue to monitor stage IV, nephrology was consulted. Patient's potassium and Aldactone were discontinued. She was managed initially on Lasix but had worsening renal function. Patient was taken off the Lasix and monitored. Her creatinine was stable at discharge at 1.67. During the course of this hospital stay, there are multiple family meetings with patient's daughter, Shawna at the bedside as well as 2 siblings on phone. Surinder is a healthcare power of silk screen processor. The initial plan was to be discharged to longterm facility. Family preferred [facility]. [facility] however did not have beds. The plan later on became back to home with home health. Patient had a hospital bed arranged. Family later on decided to have patient discharged to longterm facility again. On the day of discharge, patient was seen and examined. Physical Exam: Gen: Appears frail, not pale, not jaundiced, nontoxic CVS:HS I +II, regular, no murmurs RESP: Diminished at lung bases GI: BS present and normal, soft, nontender, no palpable organs EXT:No edema Time spent coordinating patient's care, discussing with daughter at bedside and healthcare power of silk screen processorSteff on phone and nursin minutes Visit Charges Inpatient E&M: [id number] Disch Hosp
--- NOTE | 2022-01-07 15:07 | CASEMGMT ---
Discharge Chemistry Research Assistant D/C orders faxed to facility. Family in room and notified. [facility] apple picking supervisor time is 1630. Nurse is aware. Rocio Villa Discharge Chemistry Research Assistant
--- NOTE | 2022-01-07 15:55 | NURSING ---
report called to [facility] will transfer @[phone]
--- NOTE | 2022-01-07 16:47 | NURSING ---
discharged in care of [facility] daughter present to [facility] with belongings
[2022-01-10 12:36] LABS: Vitamin D 1,25-Dihydroxy 43.2 pg/mL (19.9-79.3)
== END 2022-01-07 16:46 | DRG 280 ==
LOC: ED 02:06 → ICU 03:35 → PCU 15:17
PROVIDERS: Family Medicine; Internal Medicine; Internal Medicine Gastroenterology; Admitting Provider Family Medicine; Emergency Provider Student in an Organized Health Care Education/Training Program; PCP Family Medicine; Referring Provider Internal Medicine Interventional Cardiology; Visit Provider Internal Medicine
PROC: 0DJ08ZZ Inspection of Upper Intestinal Tract, Via Natural or Artificial Opening Endoscopic (ICD-10-PCS; CPT 43235; principal; 2022-01-02 17:25)
DX: I21.4 Non-ST elevation (NSTEMI) myocardial infarction (principal); I50.43 Acute on chronic combined systolic (congestive) and diastolic (congestive) heart failure; L89.153 Pressure ulcer of sacral region, stage 3; I42.8 Other cardiomyopathies; N17.9 Acute kidney failure, unspecified; I13.0 Hypertensive heart and chronic kidney disease with heart failure and stage 1 through stage 4 chronic kidney disease, or unspecified chronic kidney disease; N18.4 Chronic kidney disease, stage 4 (severe); I27.20 Pulmonary hypertension, unspecified; L89.612 Pressure ulcer of right heel, stage 2; K22.2 Esophageal obstruction; E11.22 Type 2 diabetes mellitus with diabetic chronic kidney disease; I50.84 End stage heart failure; E66.01 Morbid (severe) obesity due to excess calories; I25.10 Atherosclerotic heart disease of native coronary artery without angina pectoris; E87.5 Hyperkalemia; M10.9 Gout, unspecified; E78.5 Hyperlipidemia, unspecified; K21.9 Gastro-esophageal reflux disease without esophagitis; I35.0 Nonrheumatic aortic (valve) stenosis; G47.33 Obstructive sleep apnea (adult) (pediatric); F41.9 Anxiety disorder, unspecified; E03.9 Hypothyroidism, unspecified; I25.2 Old myocardial infarction; I95.9 Hypotension, unspecified; Z79.82 Long term (current) use of aspirin; H91.90 Unspecified hearing loss, unspecified ear; Z66 Do not resuscitate; Z87.891 Personal history of nicotine dependence; F32.A Depression, unspecified; J38.4 Edema of larynx; Z74.09 Other reduced mobility; R13.12 Dysphagia, oropharyngeal phase; I49.3 Ventricular premature depolarization; Z91.041 Radiographic dye allergy status; Z20.822 Contact with and (suspected) exposure to COVID-19; Z95.1 Presence of aortocoronary bypass graft; Z95.5 Presence of coronary angioplasty implant and graft; Z86.711 Personal history of pulmonary embolism; Z86.718 Personal history of other venous thrombosis and embolism; Z79.890 Hormone replacement therapy; Z96.653 Presence of artificial knee joint, bilateral; Z68.31 Body mass index [BMI] 31.0-31.9, adult
CPT/HCPCS: 36415; 71045; 74230; 80048; 82652; 82962; 83036; 83735; 83880; 84100; 84132; 84443; 84484; 85025; 85610; 85730; 87426; 92526; 92610; 92611; 93005; 93306; 94640; 97110; 97162; 97166; 97530; 97535; 97802; 97803; 99285; J7040; J7050; J7120; Q9957; A4216; C1769; J0610; J1940; J2405